=== PATIENT | male | born 1955 | race Caucasian/White ===

== ENCOUNTER → 2016-04-10 | Outpatient (REF) | payer MEDICAID, MEDICARE ==
[~2016-04-10] MED LIST: /GLYB5TA; /TAMS4CA; /TIOT18INH; ACCU5TAB7; ACCUPRIL40 PO; ACET50TAOT PO; ALCOHOL TOP; AMITRIP25 PO; ASP81 PO; ASPI81CH PO; ASPI81TA3; ASTELIN; ASTELIN NASAL; ATENOLOL50 PO; ATOR40TA PO; ATRO0.06; AVOD0.5C; CARV12.5 PO; CELLOPD OU; CLAR5CHW; CLARITD12H PO; CLARITIN10 PO; DIAB5TAB; DITROPAXL5 PO; DOXYCYC100 PO; DULC10SU2 PR; DUONSOL; ENEMENE3 PR; EXPECTORANT; FERR325T PO; FLOM5CAP PO; FLONASESPR NASAL; GLUC1000; GLUC1INJ11 INJ; GLUCOSE; GLUCOVAN PO; HUMA75VL; IBUP400T; IBUP600T; IMODIUM2 PO; INSUHUMDS SC; INSULANT; INVE3TAB PO; INVE3TAB2; INVE6TAB3; LASI80TA; LASIX PO; LEVA31IN; LISI30TA4 PO; LOVAZA PO; METO5TA PO; MILKSUS PO; MOTRIN800 PO; MUCINEX PO; NAPROS500 PO; NAPROSY375 PO; NOVOLOG100 MG/ML; OMACOR; OMACOR PO; OXCA300T PO; PREPCRE PR; PREVACID30 PO; PRIL20CA; PRIL40CA; SENN-23 PO; SERO200T; SING10TA31; SYRINS1CC SUBQ; TENO25TA; TORS20TA2 PO; TOUJ1.2I SC; TRIC145T19; TRICOR145 PO; ULTRTA PO; VENL37.5; VENL75TA2; VENL75TA2 PO; VITA100066 PO; XANA0.25; ZITHROZPAK PO; ZOCO40TA; ZOCOR40 PO; ZYRT10CA PO; [UNRECOGNIZED DRUG - CODE] PO; [UNRECOGNIZED DRUG - OTHER] -; [UNRECOGNIZED DRUG - OTHER] INHALATION; [UNRECOGNIZED DRUG - SUPPLY]
[2016-04-10 12:47] LABS: CALCIUM LEVEL 7.8 MG/DL (8.5-10.1); CREATININE FOR GFR 2.61 MG/DL (0.70-1.30); GLOMERULAR FILTRATION RATE 26.9 (>56); POTASSIUM SERUM 3.9 MEQ/L (3.5-5.1)
== END ==
PROVIDERS: ATTEND Internal Medicine
DX: D64.9 Anemia, unspecified (principal); N18.9 Chronic kidney disease, unspecified

== ENCOUNTER → 2016-04-15 | Outpatient (REF) ==
[2016-04-15 10:16] LABS: MEAN CORPUSCULAR HEMOGLOBIN 28.5 pg (27.0-33.0); MEAN CORPUSCULAR HGB CONC 31.8 g/dl (32.0-36.5); MEAN CORPUSCULAR VOLUME 89.7 fl (80.0-96.0); RED CELL DISTRIBUTION WIDTH 15.9 % (11.5-14.5); WHITE BLOOD COUNT 7.1 K/mm3 (4.0-10.0)
[2016-04-15 10:39] LABS: ANION GAP 5 MEQ/L (8-16); BLOOD UREA NITROGEN 33 MG/DL (7-18); CARBON DIOXIDE LEVEL 39 MEQ/L (21-32); CHLORIDE LEVEL 101 MEQ/L (98-107); CREATININE FOR GFR 2.34 MG/DL (0.70-1.30); GLOMERULAR FILTRATION RATE 30.5 (>56); GLUCOSE, FASTING 125 MG/DL (70-105); POTASSIUM SERUM 3.9 MEQ/L (3.5-5.1); SODIUM LEVEL 145 MEQ/L (136-145); TOTAL PROTEIN 5.9 GM/DL (6.4-8.2)
[2016-04-17 10:43] LABS: ALBUMIN 2.62 GM/DL (3.29-5.55); ALBUMIN % 44.4 % (55.8-66.1); GAMMA GLOBULIN % 18.7 % (11.1-18.8)
== END ==
PROVIDERS: ATTEND Internal Medicine
DX: D64.9 Anemia, unspecified (principal)

== ENCOUNTER → 2016-04-16 | Outpatient (REF) ==
[2016-04-16 12:26] LABS: MEAN CORPUSCULAR HEMOGLOBIN 27.8 pg (27.0-33.0); MEAN CORPUSCULAR HGB CONC 31.1 g/dl (32.0-36.5); MEAN CORPUSCULAR VOLUME 89.5 fl (80.0-96.0); RED CELL DISTRIBUTION WIDTH 16.7 % (11.5-14.5); WHITE BLOOD COUNT 11.8 K/mm3 (4.0-10.0)
== END ==
PROVIDERS: ATTEND Internal Medicine
DX: R50.9 Fever, unspecified (principal)

== ENCOUNTER 2016-04-18 14:33 | Outpatient (CLI) | payer MEDICARE, MEDICAID ==
[2016-04-18 14:00] VITALS: BP 128/60
[~2016-04-18 14:33] MED LIST changes: +ACETAMINOPHEN TAB 650MG DOSE (2X325MG) PO SCH; +diphenhydrAMINE 25 MG CAP PO SCH
[2016-04-18] MEDS ORDERED: TORSEMIDE 20 MG TAB PO ONE (15:00)
== END 2016-04-19 00:15 ==
LOC: M OPCLI4PV 14:33 → M MSPAV 14:36 → M OPCLI4PV 04-19 00:15
PROVIDERS: ATTEND Physician Assistant
DX: D50.0 Iron deficiency anemia secondary to blood loss (chronic) (principal); I10 Essential (primary) hypertension; E78.5 Hyperlipidemia, unspecified; F20.9 Schizophrenia, unspecified; F31.9 Bipolar disorder, unspecified; Z79.4 Long term (current) use of insulin; Z79.82 Long term (current) use of aspirin; I50.9 Heart failure, unspecified; Z79.899 Other long term (current) drug therapy

== ENCOUNTER → 2016-04-18 | Outpatient (REF) ==
[2016-04-18 12:10] LABS: MEAN CORPUSCULAR HEMOGLOBIN 28.7 pg (27.0-33.0); MEAN CORPUSCULAR HGB CONC 31.6 g/dl (32.0-36.5); MEAN CORPUSCULAR VOLUME 90.6 fl (80.0-96.0); RED CELL DISTRIBUTION WIDTH 15.8 % (11.5-14.5); WHITE BLOOD COUNT 7.1 K/mm3 (4.0-10.0)
[2016-04-18 12:28] LABS: CREATININE FOR GFR 3.24 MG/DL (0.70-1.30); POTASSIUM SERUM 4.8 MEQ/L (3.5-5.1)
== END ==
PROVIDERS: ATTEND Internal Medicine
DX: D64.9 Anemia, unspecified (principal)

== ENCOUNTER → 2016-04-19 | Outpatient (REF) ==
[~2016-04-19] MED LIST changes: -ACETAMINOPHEN TAB 650MG DOSE (2X325MG) PO SCH; -diphenhydrAMINE 25 MG CAP PO SCH
[2016-04-19 10:54] LABS: MEAN CORPUSCULAR HEMOGLOBIN 28.6 pg (27.0-33.0); MEAN CORPUSCULAR HGB CONC 32.4 g/dl (32.0-36.5); MEAN CORPUSCULAR VOLUME 88.5 fl (80.0-96.0); WHITE BLOOD COUNT 6.1 K/mm3 (4.0-10.0)
== END ==
PROVIDERS: ATTEND Internal Medicine
DX: D64.9 Anemia, unspecified (principal)

== ENCOUNTER → 2016-04-21 | Outpatient (REF) | payer MEDICAID, MEDICARE ==
--- NOTE | 2016-04-21 16:52 | REP ---
Right upper extremity duplex venous ultrasound: History: Right arm swelling question venous thrombosis. Findings: Exam quality is inhibited to some degree by patient's relative immobility with regard to the right arm. However, the right internal jugular, right subclavian, right axillary, right brachial, right cephalic and right basilic veins are seen and are anechoic and compressible. Color flow is homogeneous. There is no evidence of venous thrombosis. Impression: No evidence of right upper extremity venous thrombosis. Signed by Scott Huynh MD 04/21/2016 05:43 P
== END ==
LOC: M RAD 12:00 → EDSTATUS 15:30 → M RAD 15:58
PROVIDERS: ATTEND Physician Assistant
DX: M79.601 Pain in right arm (principal); I50.9 Heart failure, unspecified; D64.9 Anemia, unspecified

== ENCOUNTER → 2016-04-21 | Outpatient (REF) | payer MEDICARE, MEDICAID ==
[2016-04-21 14:11] LABS: CALCIUM LEVEL 8.1 MG/DL (8.5-10.1); CREATININE FOR GFR 2.81 MG/DL (0.70-1.30); GLOMERULAR FILTRATION RATE 24.7 (>56); PERCENT SATURATION 12.8 % (19.7-37.4); POTASSIUM SERUM 4.5 MEQ/L (3.5-5.1)
[2016-04-21 14:17] LABS: MEAN CORPUSCULAR HEMOGLOBIN 27.9 pg (27.0-33.0); RED CELL DISTRIBUTION WIDTH 16.5 % (11.5-14.5)
== END ==
PROVIDERS: ATTEND Internal Medicine
DX: I50.9 Heart failure, unspecified (principal); D64.9 Anemia, unspecified

== ENCOUNTER → 2016-04-22 | Outpatient (REF) | payer MEDICARE, MEDICAID ==
--- NOTE | 2016-04-22 16:11 | REP ---
Limited internal and external rotation views of the right shoulder, performed portably: Indication: Decreased range of motion/increased pain in area of acromioclavicular joint. Findings: Moderate hypertrophic and osteoarthritic changes are noted at the acromioclavicular joint. There is no fracture or dislocation within the right shoulder. There is no visible acromioclavicular joint separation. The visualized portions of the scapula are without fracture. Small amount of spurring is noted within the humeral head and greater tuberosity. Impression: 1. Mild osteoarthritic changes within the humeral head at glenohumeral joint. 2. Moderate hypertrophic and osteoarthritic changes are present at acromioclavicular joint, which can be seen with impingement. MTDD
== END ==
PROVIDERS: ATTEND Internal Medicine
DX: M19.90 Unspecified osteoarthritis, unspecified site (principal)

== ENCOUNTER → 2016-04-23 | Outpatient (REF) ==
[2016-04-23 12:13] LABS: MEAN CORPUSCULAR HEMOGLOBIN 27.7 pg (27.0-33.0); MEAN CORPUSCULAR HGB CONC 30.9 g/dl (32.0-36.5); MEAN CORPUSCULAR VOLUME 89.5 fl (80.0-96.0); RED CELL DISTRIBUTION WIDTH 16.5 % (11.5-14.5); WHITE BLOOD COUNT 7.4 K/mm3 (4.0-10.0)
== END ==
PROVIDERS: ATTEND Internal Medicine
DX: D64.9 Anemia, unspecified (principal)

== ENCOUNTER → 2016-04-28 | Outpatient (REF) | payer MEDICARE, MEDICAID ==
[2016-04-28 14:24] LABS: MEAN CORPUSCULAR HEMOGLOBIN 27.8 pg (27.0-33.0); MEAN CORPUSCULAR HGB CONC 30.7 g/dl (32.0-36.5); MEAN CORPUSCULAR VOLUME 90.7 fl (80.0-96.0); RED CELL DISTRIBUTION WIDTH 16.4 % (11.5-14.5); WHITE BLOOD COUNT 7.8 K/mm3 (4.0-10.0)
[2016-04-28 14:36] LABS: CALCIUM LEVEL 8.6 MG/DL (8.5-10.1); CREATININE FOR GFR 2.41 MG/DL (0.70-1.30); GLOMERULAR FILTRATION RATE 29.5 (>56); POTASSIUM SERUM 4.3 MEQ/L (3.5-5.1)
== END ==
PROVIDERS: ATTEND Internal Medicine
DX: D64.9 Anemia, unspecified (principal)

== ENCOUNTER → 2016-05-01 | Outpatient (REF) | payer MEDICAID, MEDICARE ==
[2016-05-01 14:24] LABS: MEAN CORPUSCULAR HEMOGLOBIN 28.1 pg (27.0-33.0); MEAN CORPUSCULAR HGB CONC 30.8 g/dl (32.0-36.5); MEAN CORPUSCULAR VOLUME 91.2 fl (80.0-96.0); RED CELL DISTRIBUTION WIDTH 15.2 % (11.5-14.5); WHITE BLOOD COUNT 5.6 K/mm3 (4.0-10.0)
[2016-05-02 08:57] LABS: CALCIUM OXALATE CRYSTALS SMALL
== END ==
PROVIDERS: ATTEND Internal Medicine
DX: D64.9 Anemia, unspecified (principal); Z79.899 Other long term (current) drug therapy; I50.9 Heart failure, unspecified

== ENCOUNTER → 2016-05-05 | Outpatient (REF) | payer MEDICAID, MEDICARE ==
[2016-05-05 11:57] LABS: MEAN CORPUSCULAR HEMOGLOBIN 27.8 pg (27.0-33.0); MEAN CORPUSCULAR HGB CONC 31.6 g/dl (32.0-36.5); MEAN CORPUSCULAR VOLUME 87.9 fl (80.0-96.0); RED CELL DISTRIBUTION WIDTH 16.6 % (11.5-14.5); WHITE BLOOD COUNT 4.8 K/mm3 (4.0-10.0)
[2016-05-05 12:35] LABS: CALCIUM LEVEL 8.3 MG/DL (8.5-10.1); CREATININE FOR GFR 2.28 MG/DL (0.70-1.30); GLOMERULAR FILTRATION RATE 31.5 (>56)
== END ==
PROVIDERS: ATTEND Internal Medicine
DX: D64.9 Anemia, unspecified (principal); I50.9 Heart failure, unspecified

== ENCOUNTER → 2016-05-08 | Outpatient (REF) ==
[2016-05-08 14:52] LABS: MEAN CORPUSCULAR HEMOGLOBIN 28.4 pg (27.0-33.0); MEAN CORPUSCULAR HGB CONC 31.9 g/dl (32.0-36.5); MEAN CORPUSCULAR VOLUME 89.1 fl (80.0-96.0); RED CELL DISTRIBUTION WIDTH 15.9 % (11.5-14.5); WHITE BLOOD COUNT 5.4 K/mm3 (4.0-10.0)
== END ==
PROVIDERS: ATTEND Internal Medicine
DX: D64.9 Anemia, unspecified (principal)

== ENCOUNTER → 2016-05-13 | Outpatient (REF) | payer MEDICARE, MEDICAID ==
[2016-05-13 12:41] LABS: MEAN CORPUSCULAR HGB CONC 31.3 g/dl (32.0-36.5); MEAN CORPUSCULAR VOLUME 89.3 fl (80.0-96.0); RED CELL DISTRIBUTION WIDTH 15.7 % (11.5-14.5); WHITE BLOOD COUNT 5.6 K/mm3 (4.0-10.0)
[2016-05-13 12:48] LABS: CALCIUM LEVEL 8.3 MG/DL (8.5-10.1); CREATININE FOR GFR 2.42 MG/DL (0.70-1.30); GLOMERULAR FILTRATION RATE 29.4 (>56); POTASSIUM SERUM 3.8 MEQ/L (3.5-5.1)
== END ==
PROVIDERS: ATTEND Internal Medicine
DX: D64.9 Anemia, unspecified (principal); R13.12 Dysphagia, oropharyngeal phase

== ENCOUNTER → 2016-05-15 | Outpatient (REF) | payer MEDICAID, MEDICARE ==
[2016-05-15 12:37] LABS: MEAN CORPUSCULAR HEMOGLOBIN 28.1 pg (27.0-33.0); MEAN CORPUSCULAR HGB CONC 31.4 g/dl (32.0-36.5); MEAN CORPUSCULAR VOLUME 89.4 fl (80.0-96.0); RED CELL DISTRIBUTION WIDTH 15.8 % (11.5-14.5); WHITE BLOOD COUNT 5.9 K/mm3 (4.0-10.0)
== END ==
PROVIDERS: ATTEND Internal Medicine
DX: D64.9 Anemia, unspecified (principal)

== ENCOUNTER → 2016-05-19 | Outpatient (REF) | payer MEDICARE, MEDICAID ==
[2016-05-19 12:50] LABS: MEAN CORPUSCULAR HEMOGLOBIN 28.2 pg (27.0-33.0); MEAN CORPUSCULAR HGB CONC 31.3 g/dl (32.0-36.5); MEAN CORPUSCULAR VOLUME 90.2 fl (80.0-96.0); RED CELL DISTRIBUTION WIDTH 16.2 % (11.5-14.5); WHITE BLOOD COUNT 6.6 K/mm3 (4.0-10.0)
[2016-05-19 13:17] LABS: CALCIUM LEVEL 8.3 MG/DL (8.5-10.1); CREATININE FOR GFR 2.43 MG/DL (0.70-1.30); GLOMERULAR FILTRATION RATE 29.2 (>56); POTASSIUM SERUM 4.1 MEQ/L (3.5-5.1)
== END ==
PROVIDERS: ATTEND Internal Medicine
DX: D64.9 Anemia, unspecified (principal); I50.9 Heart failure, unspecified

== ENCOUNTER → 2016-05-22 | Outpatient (REF) | payer MEDICARE, MEDICAID ==
[2016-05-22 10:33] LABS: MEAN CORPUSCULAR HEMOGLOBIN 28.7 pg (27.0-33.0); MEAN CORPUSCULAR HGB CONC 31.6 g/dl (32.0-36.5); MEAN CORPUSCULAR VOLUME 90.8 fl (80.0-96.0); RED CELL DISTRIBUTION WIDTH 16.5 % (11.5-14.5); WHITE BLOOD COUNT 6.1 K/mm3 (4.0-10.0)
== END ==
PROVIDERS: ATTEND Internal Medicine
DX: D64.9 Anemia, unspecified (principal)

== ENCOUNTER → 2016-05-27 | Outpatient (REF) | payer MEDICARE, MEDICAID ==
[2016-05-27 10:40] LABS: MEAN CORPUSCULAR HEMOGLOBIN 28.2 pg (27.0-33.0); MEAN CORPUSCULAR HGB CONC 31.5 g/dl (32.0-36.5); MEAN CORPUSCULAR VOLUME 89.6 fl (80.0-96.0); RED CELL DISTRIBUTION WIDTH 16.7 % (11.5-14.5); WHITE BLOOD COUNT 5.4 K/mm3 (4.0-10.0)
[2016-05-27 10:59] LABS: CALCIUM LEVEL 8.9 MG/DL (8.5-10.1); CREATININE FOR GFR 2.25 MG/DL (0.70-1.30); GLOMERULAR FILTRATION RATE 31.9 (>56)
== END ==
PROVIDERS: ATTEND Internal Medicine
DX: I50.9 Heart failure, unspecified (principal); D64.9 Anemia, unspecified

== ENCOUNTER → 2016-06-02 | Outpatient (REF) | payer MEDICARE, MEDICAID ==
[2016-06-02 12:53] LABS: MEAN CORPUSCULAR HEMOGLOBIN 28.5 pg (27.0-33.0); MEAN CORPUSCULAR HGB CONC 31.6 g/dl (32.0-36.5); MEAN CORPUSCULAR VOLUME 90.1 fl (80.0-96.0); RED CELL DISTRIBUTION WIDTH 16.6 % (11.5-14.5); WHITE BLOOD COUNT 5.2 K/mm3 (4.0-10.0)
[2016-06-02 13:33] LABS: CALCIUM LEVEL 8.2 MG/DL (8.5-10.1); CREATININE FOR GFR 2.17 MG/DL (0.70-1.30); GLOMERULAR FILTRATION RATE 33.3 (>56)
== END ==
PROVIDERS: ATTEND Internal Medicine
DX: I50.9 Heart failure, unspecified (principal)

== ENCOUNTER → 2016-06-06 | Outpatient (REF) ==
--- NOTE | 2016-06-06 14:03 | REP ---
CHEST PORTABLE: Two AP portable views of the chest are performed. Comparison is made with multiple prior exams most recently 03/19/2016. The heart is enlarged and there is vascular congestion. There appears to be mild diffuse interstitial edema. As well. No consolidating infiltrate is seen. The mediastinal silhouette is unchanged. IMPRESSION: Findings compatible with mild congestive heart failure and interstitial pulmonary edema. Signed by Inder Hollis MD 06/06/2016 08:33 P
[2016-06-06 14:20] LABS: MEAN CORPUSCULAR HEMOGLOBIN 29.2 pg (27.0-33.0); MEAN CORPUSCULAR HGB CONC 32.6 g/dl (32.0-36.5); MEAN CORPUSCULAR VOLUME 89.6 fl (80.0-96.0); RED CELL DISTRIBUTION WIDTH 16.6 % (11.5-14.5); WHITE BLOOD COUNT 5.9 K/mm3 (4.0-10.0)
[2016-06-06 14:28] LABS: CALCIUM LEVEL 8.6 MG/DL (8.5-10.1); CREATININE FOR GFR 2.28 MG/DL (0.70-1.30); GLOMERULAR FILTRATION RATE 31.5 (>56); POTASSIUM SERUM 4.2 MEQ/L (3.5-5.1)
== END ==
PROVIDERS: ATTEND Internal Medicine
DX: R05 Cough (principal); I10 Essential (primary) hypertension

== ENCOUNTER → 2016-06-09 | Outpatient (REF) | payer MEDICAID, MEDICARE ==
[2016-06-09 10:07] LABS: MEAN CORPUSCULAR HEMOGLOBIN 29.2 pg (27.0-33.0); MEAN CORPUSCULAR HGB CONC 31.8 g/dl (32.0-36.5); MEAN CORPUSCULAR VOLUME 91.7 fl (80.0-96.0); RED CELL DISTRIBUTION WIDTH 16.3 % (11.5-14.5); WHITE BLOOD COUNT 5.5 K/mm3 (4.0-10.0)
[2016-06-09 10:36] LABS: CALCIUM LEVEL 8.7 MG/DL (8.5-10.1); CREATININE FOR GFR 2.37 MG/DL (0.70-1.30); GLOMERULAR FILTRATION RATE 30.1 (>56); POTASSIUM SERUM 4.2 MEQ/L (3.5-5.1)
== END ==
PROVIDERS: ATTEND Internal Medicine
DX: I50.9 Heart failure, unspecified (principal)

== ENCOUNTER → 2016-06-11 | Outpatient (REF) | payer MEDICARE, MEDICAID ==
--- NOTE | 2016-06-11 13:14 | REP ---
PORTABLE CHEST: AP portable view of the chest is performed and compared to a prior study of 06/06/2016. Once again there is cardiomegaly with mild vascular congestion. Mild diffuse increased interstitial markings are unchanged. No new consolidating infiltrate is seen. The mediastinal silhouette is unchanged. IMPRESSION: Stable exam. Signed by Inder Hollis MD 06/12/2016 04:36 P
== END ==
PROVIDERS: ATTEND Internal Medicine
DX: I50.9 Heart failure, unspecified (principal)

== ENCOUNTER → 2016-06-16 | Outpatient (REF) ==
[2016-06-16 11:23] LABS: MEAN CORPUSCULAR HEMOGLOBIN 29.4 pg (27.0-33.0); MEAN CORPUSCULAR HGB CONC 32.5 g/dl (32.0-36.5); MEAN CORPUSCULAR VOLUME 90.4 fl (80.0-96.0); RED CELL DISTRIBUTION WIDTH 16.1 % (11.5-14.5); WHITE BLOOD COUNT 6.5 K/mm3 (4.0-10.0)
[2016-06-16 11:46] LABS: CALCIUM LEVEL 8.7 MG/DL (8.5-10.1); CREATININE FOR GFR 2.24 MG/DL (0.70-1.30); GLOMERULAR FILTRATION RATE 32.1 (>56); POTASSIUM SERUM 4.3 MEQ/L (3.5-5.1)
== END ==
PROVIDERS: ATTEND Internal Medicine
DX: I50.9 Heart failure, unspecified (principal)

== ENCOUNTER → 2016-06-23 | Outpatient (REF) | payer MEDICARE, MEDICAID ==
[2016-06-23 13:43] LABS: MEAN CORPUSCULAR HEMOGLOBIN 29.1 pg (27.0-33.0); MEAN CORPUSCULAR HGB CONC 31.8 g/dl (32.0-36.5); MEAN CORPUSCULAR VOLUME 91.6 fl (80.0-96.0); RED CELL DISTRIBUTION WIDTH 15.7 % (11.5-14.5); WHITE BLOOD COUNT 6.3 K/mm3 (4.0-10.0)
[2016-06-23 14:02] LABS: CALCIUM LEVEL 8.4 MG/DL (8.5-10.1); CREATININE FOR GFR 2.61 MG/DL (0.70-1.30); GLOMERULAR FILTRATION RATE 26.9 (>56); POTASSIUM SERUM 4.2 MEQ/L (3.5-5.1)
== END ==
PROVIDERS: ATTEND Internal Medicine
DX: I50.9 Heart failure, unspecified (principal)

== ENCOUNTER → 2016-06-30 | Outpatient (REF) | payer MEDICARE, MEDICAID ==
[2016-06-30 10:31] LABS: CALCIUM LEVEL 8.9 MG/DL (8.5-10.1); CREATININE FOR GFR 2.42 MG/DL (0.70-1.30); GLOMERULAR FILTRATION RATE 29.4 (>56); MEAN CORPUSCULAR HEMOGLOBIN 28.4 pg (27.0-33.0); MEAN CORPUSCULAR HGB CONC 31.4 g/dl (32.0-36.5); MEAN CORPUSCULAR VOLUME 90.7 fl (80.0-96.0); POTASSIUM SERUM 4.5 MEQ/L (3.5-5.1); WHITE BLOOD COUNT 6.3 K/mm3 (4.0-10.0)
== END ==
PROVIDERS: ATTEND Internal Medicine
DX: D64.9 Anemia, unspecified (principal); I50.9 Heart failure, unspecified

== ENCOUNTER → 2016-07-03 | Outpatient (REF) | payer MEDICARE, MEDICAID | PROVIDERS: ATTEND Internal Medicine | DX: E21.3 Hyperparathyroidism, unspecified (principal) ==

== ENCOUNTER → 2016-07-04 | Outpatient (REF) | payer MEDICARE, MEDICAID | PROVIDERS: ATTEND Internal Medicine | DX: E50.9 Vitamin A deficiency, unspecified (principal) ==

== ENCOUNTER → 2016-07-07 | Outpatient (REF) | payer MEDICARE, MEDICAID ==
[2016-07-07 13:49] LABS: MEAN CORPUSCULAR HEMOGLOBIN 28.6 pg (27.0-33.0); MEAN CORPUSCULAR HGB CONC 30.5 g/dl (32.0-36.5); MEAN CORPUSCULAR VOLUME 93.7 fl (80.0-96.0); RED CELL DISTRIBUTION WIDTH 15.6 % (11.5-14.5); WHITE BLOOD COUNT 5.9 K/mm3 (4.0-10.0)
[2016-07-07 14:34] LABS: CALCIUM LEVEL 8.5 MG/DL (8.5-10.1); CREATININE FOR GFR 3.27 MG/DL (0.70-1.30); GLOMERULAR FILTRATION RATE 20.7 (>56); POTASSIUM SERUM 4.1 MEQ/L (3.5-5.1)
== END ==
PROVIDERS: ATTEND Internal Medicine
DX: I50.9 Heart failure, unspecified (principal); D64.9 Anemia, unspecified

== ENCOUNTER → 2016-07-10 | Outpatient (REF) | payer MEDICARE, MEDICAID ==
[2016-07-10 12:36] LABS: CALCIUM LEVEL 9.2 MG/DL (8.5-10.1); CREATININE FOR GFR 2.8 MG/DL (0.70-1.30); GLOMERULAR FILTRATION RATE 24.8 (>56); POTASSIUM SERUM 4.3 MEQ/L (3.5-5.1)
[2016-07-10 12:37] LABS: MEAN CORPUSCULAR HEMOGLOBIN 28.4 pg (27.0-33.0); MEAN CORPUSCULAR HGB CONC 30.6 g/dl (32.0-36.5); MEAN CORPUSCULAR VOLUME 92.9 fl (80.0-96.0); RED CELL DISTRIBUTION WIDTH 15.3 % (11.5-14.5); WHITE BLOOD COUNT 5.8 K/mm3 (4.0-10.0)
== END ==
PROVIDERS: ATTEND Internal Medicine
DX: D64.9 Anemia, unspecified (principal)

== ENCOUNTER → 2016-07-14 | Outpatient (REF) | payer MEDICARE, MEDICAID | PROVIDERS: ATTEND Internal Medicine | DX: N17.9 Acute kidney failure, unspecified (principal) ==

== ENCOUNTER → 2016-07-22 | Outpatient (REF) | payer MEDICARE, MEDICAID ==
[2016-07-22 11:10] LABS: MEAN CORPUSCULAR HEMOGLOBIN 28.1 pg (27.0-33.0); MEAN CORPUSCULAR HGB CONC 31.4 g/dl (32.0-36.5); MEAN CORPUSCULAR VOLUME 89.5 fl (80.0-96.0); RED CELL DISTRIBUTION WIDTH 15.6 % (11.5-14.5); WHITE BLOOD COUNT 7.8 K/mm3 (4.0-10.0)
[2016-07-22 11:24] LABS: CALCIUM LEVEL 8.5 MG/DL (8.5-10.1); CREATININE FOR GFR 2.53 MG/DL (0.70-1.30); GLOMERULAR FILTRATION RATE 27.9 (>56); POTASSIUM SERUM 4.6 MEQ/L (3.5-5.1)
== END ==
PROVIDERS: ATTEND Internal Medicine
DX: D64.9 Anemia, unspecified (principal); I50.9 Heart failure, unspecified

== ENCOUNTER → 2016-07-23 | Outpatient (REF) | payer MEDICARE, MEDICAID | PROVIDERS: ATTEND Internal Medicine | DX: N39.0 Urinary tract infection, site not specified (principal) ==

== ENCOUNTER → 2016-07-24 | Outpatient (REF) | payer MEDICARE, MEDICAID ==
--- NOTE | 2016-07-24 16:50 | REP ---
PORTABLE CHEST, ONE VIEW: HISTORY: Shortness of breath. COMPARISON: 06/11/2016 A minimal increase in interstitial markings is present in the lungs unchanged compared to the previous study. The cardiac silhouette is enlarged. The pulmonary vasculature is prominent. IMPRESSION: 1. There is a minimal increase in interstitial markings in the lungs unchanged compared to the previous study. 2. Cardiomegaly. Signed by Pradeep Jacques MD 07/24/2016 04:52 P
== END ==
PROVIDERS: ATTEND Internal Medicine
DX: R05 Cough (principal)

== ENCOUNTER → 2016-07-28 | Outpatient (REF) | payer MEDICARE, MEDICAID ==
[2016-07-28 11:40] LABS: MEAN CORPUSCULAR HEMOGLOBIN 28.4 pg (27.0-33.0); MEAN CORPUSCULAR HGB CONC 31.9 g/dl (32.0-36.5); MEAN CORPUSCULAR VOLUME 89.2 fl (80.0-96.0); RED CELL DISTRIBUTION WIDTH 15.5 % (11.5-14.5); WHITE BLOOD COUNT 5.4 K/mm3 (4.0-10.0)
[2016-07-28 12:10] LABS: CALCIUM LEVEL 7.6 MG/DL (8.5-10.1); CREATININE FOR GFR 4.87 MG/DL (0.70-1.30); GLOMERULAR FILTRATION RATE 13.1 (>56); POTASSIUM SERUM 4.4 MEQ/L (3.5-5.1)
== END ==
PROVIDERS: ATTEND Internal Medicine
DX: D64.9 Anemia, unspecified (principal); I50.9 Heart failure, unspecified

== ENCOUNTER → 2016-08-04 | Outpatient (REF) | payer MEDICARE, MEDICAID ==
[2016-08-04 14:02] LABS: MEAN CORPUSCULAR HEMOGLOBIN 28.1 pg (27.0-33.0); MEAN CORPUSCULAR HGB CONC 30.7 g/dl (32.0-36.5); MEAN CORPUSCULAR VOLUME 91.5 fl (80.0-96.0); RED CELL DISTRIBUTION WIDTH 16.3 % (11.5-14.5)
[2016-08-04 14:23] LABS: CALCIUM LEVEL 8.2 MG/DL (8.5-10.1); CREATININE FOR GFR 2.63 MG/DL (0.70-1.30); GLOMERULAR FILTRATION RATE 26.7 (>56); POTASSIUM SERUM 4.6 MEQ/L (3.5-5.1)
== END ==
PROVIDERS: ATTEND Internal Medicine
DX: I50.9 Heart failure, unspecified (principal)

== ENCOUNTER → 2016-08-07 | Outpatient (REF) | payer MEDICARE, MEDICAID ==
[2016-08-07 09:55] LABS: MEAN CORPUSCULAR VOLUME 90.3 fl (80.0-96.0); RED CELL DISTRIBUTION WIDTH 16.3 % (11.5-14.5)
[2016-08-07 10:23] LABS: CALCIUM LEVEL 7.7 MG/DL (8.5-10.1); CREATININE FOR GFR 2.78 MG/DL (0.70-1.30); POTASSIUM SERUM 4.6 MEQ/L (3.5-5.1)
== END ==
PROVIDERS: ATTEND Internal Medicine
DX: I50.9 Heart failure, unspecified (principal)

== ENCOUNTER → 2016-08-11 | Outpatient (REF) | payer MEDICARE, MEDICAID ==
[2016-08-11 10:42] LABS: MEAN CORPUSCULAR HEMOGLOBIN 28.8 pg (27.0-33.0); MEAN CORPUSCULAR VOLUME 90.1 fl (80.0-96.0); WHITE BLOOD COUNT 5.4 K/mm3 (4.0-10.0)
[2016-08-11 11:09] LABS: CALCIUM LEVEL 8.4 MG/DL (8.5-10.1); CREATININE FOR GFR 2.6 MG/DL (0.70-1.30); POTASSIUM SERUM 4.5 MEQ/L (3.5-5.1)
== END ==
PROVIDERS: ATTEND Internal Medicine
DX: I50.9 Heart failure, unspecified (principal)

== ENCOUNTER 2016-08-12 09:00 | Outpatient (CLI) | payer MEDICARE, MEDICAID ==
[~2016-08-12] VITALS: Ht 160 cm; Wt 166.5 kg
[~2016-08-12 09:00] MED LIST changes: +diphenhydrAMINE 25 MG CAP PO SCH
[2016-08-12 09:25] VITALS: BP 150/99
[2016-08-12] MEDS ORDERED: ACETAMINOPHEN 325 MG TAB PO ONE (09:30)
[2016-08-12] MEDS ORDERED: FUROSEMIDE 40 MG/4 ML VIAL (J1940) IV ONE (10:30)
[2016-08-12] MEDS: HumaLOG INSULIN (NovoLOG) PER UNIT SC SCH ×2 (11:39→16:53)
[2016-08-12 14:00] VITALS: BP 148/79
== END 2016-08-12 18:27 ==
LOC: M OPCLI4PV 09:00 → M MSPAV 09:01 → M OPCLI4PV 18:27
PROVIDERS: ATTEND Physician Assistant
DX: D64.9 Anemia, unspecified (principal); Z79.82 Long term (current) use of aspirin; Z79.4 Long term (current) use of insulin; Z79.899 Other long term (current) drug therapy
CPT/HCPCS: 36430; J1940; P9016

== ENCOUNTER → 2016-08-14 | Outpatient (REF) | payer MEDICARE, MEDICAID ==
[~2016-08-14] MED LIST changes: -diphenhydrAMINE 25 MG CAP PO SCH
[2016-08-14 19:06] LABS: MEAN CORPUSCULAR HEMOGLOBIN 29.5 pg (27.0-33.0); MEAN CORPUSCULAR HGB CONC 32.5 g/dl (32.0-36.5); RED CELL DISTRIBUTION WIDTH 15.6 % (11.5-14.5); WHITE BLOOD COUNT 6.9 K/mm3 (4.0-10.0)
== END ==
PROVIDERS: ATTEND Internal Medicine
DX: D64.9 Anemia, unspecified (principal)

== ENCOUNTER → 2016-08-18 | Outpatient (REF) | payer MEDICARE, MEDICAID ==
[2016-08-18 10:20] LABS: MEAN CORPUSCULAR HEMOGLOBIN 29.1 pg (27.0-33.0); MEAN CORPUSCULAR HGB CONC 32.4 g/dl (32.0-36.5); MEAN CORPUSCULAR VOLUME 89.8 fl (80.0-96.0); RED CELL DISTRIBUTION WIDTH 15.4 % (11.5-14.5); WHITE BLOOD COUNT 5.6 K/mm3 (4.0-10.0)
[2016-08-18 10:28] LABS: CALCIUM LEVEL 8.2 MG/DL (8.5-10.1); CREATININE FOR GFR 2.73 MG/DL (0.70-1.30); GLOMERULAR FILTRATION RATE 25.6 (>56); POTASSIUM SERUM 4.4 MEQ/L (3.5-5.1)
== END ==
PROVIDERS: ATTEND Internal Medicine
DX: D64.9 Anemia, unspecified (principal)

== ENCOUNTER → 2016-08-25 | Outpatient (REF) | payer MEDICARE, MEDICAID ==
[2016-08-25 14:21] LABS: CALCIUM LEVEL 7.6 MG/DL (8.5-10.1); CREATININE FOR GFR 2.83 MG/DL (0.70-1.30); GLOMERULAR FILTRATION RATE 24.5 (>56)
[2016-08-25 14:26] LABS: MEAN CORPUSCULAR HEMOGLOBIN 29.6 pg (27.0-33.0); MEAN CORPUSCULAR HGB CONC 33.8 g/dl (32.0-36.5); MEAN CORPUSCULAR VOLUME 87.5 fl (80.0-96.0); RED CELL DISTRIBUTION WIDTH 15.4 % (11.5-14.5); WHITE BLOOD COUNT 6.1 K/mm3 (4.0-10.0)
== END ==
PROVIDERS: ATTEND Internal Medicine
DX: D64.9 Anemia, unspecified (principal)

== ENCOUNTER → 2016-08-29 | Outpatient (REF) | payer MEDICARE, MEDICAID ==
[2016-08-29 10:34] LABS: CALCIUM LEVEL 8.3 MG/DL (8.5-10.1); CREATININE FOR GFR 2.72 MG/DL (0.70-1.30); GLOMERULAR FILTRATION RATE 25.7 (>56); POTASSIUM SERUM 4.4 MEQ/L (3.5-5.1)
== END ==
PROVIDERS: ATTEND Internal Medicine
DX: N18.9 Chronic kidney disease, unspecified (principal)

== ENCOUNTER → 2016-09-02 | Outpatient (REF) | payer MEDICARE, MEDICAID ==
[2016-09-02 10:57] LABS: MEAN CORPUSCULAR HEMOGLOBIN 28.9 pg (27.0-33.0); MEAN CORPUSCULAR HGB CONC 32.3 g/dl (32.0-36.5); MEAN CORPUSCULAR VOLUME 89.4 fl (80.0-96.0); RED CELL DISTRIBUTION WIDTH 15.4 % (11.5-14.5); WHITE BLOOD COUNT 7.4 K/mm3 (4.0-10.0)
[2016-09-02 11:11] LABS: CALCIUM LEVEL 8.3 MG/DL (8.5-10.1); CREATININE FOR GFR 2.9 MG/DL (0.70-1.30); GLOMERULAR FILTRATION RATE 23.8 (>56); POTASSIUM SERUM 4.6 MEQ/L (3.5-5.1)
== END ==
PROVIDERS: ATTEND Internal Medicine
DX: D64.9 Anemia, unspecified (principal); E21.3 Hyperparathyroidism, unspecified

== ENCOUNTER → 2016-09-08 | Outpatient (REF) | payer MEDICARE, MEDICAID ==
[2016-09-08 13:38] LABS: MEAN CORPUSCULAR HEMOGLOBIN 29.2 pg (27.0-33.0); MEAN CORPUSCULAR HGB CONC 32.5 g/dl (32.0-36.5); MEAN CORPUSCULAR VOLUME 89.8 fl (80.0-96.0); WHITE BLOOD COUNT 7.9 K/mm3 (4.0-10.0)
[2016-09-08 14:03] LABS: CALCIUM LEVEL 7.9 MG/DL (8.5-10.1); CREATININE FOR GFR 3.13 MG/DL (0.70-1.30); GLOMERULAR FILTRATION RATE 21.8 (>56); POTASSIUM SERUM 4.1 MEQ/L (3.5-5.1)
== END ==
PROVIDERS: ATTEND Internal Medicine
DX: I50.9 Heart failure, unspecified (principal); D64.9 Anemia, unspecified

== ENCOUNTER → 2016-09-11 | Outpatient (REF) | payer MEDICARE, MEDICAID ==
[2016-09-11 15:15] LABS: CALCIUM LEVEL 7.9 MG/DL (8.5-10.1); CREATININE FOR GFR 3.06 MG/DL (0.70-1.30); GLOMERULAR FILTRATION RATE 22.4 (>56); POTASSIUM SERUM 4.6 MEQ/L (3.5-5.1)
== END ==
PROVIDERS: ATTEND Internal Medicine
DX: N18.9 Chronic kidney disease, unspecified (principal)

== ENCOUNTER → 2016-09-15 | Outpatient (REF) | payer MEDICARE, MEDICAID ==
[2016-09-15 14:28] LABS: MEAN CORPUSCULAR HEMOGLOBIN 29.7 pg (27.0-33.0); MEAN CORPUSCULAR VOLUME 87.3 fl (80.0-96.0); RED CELL DISTRIBUTION WIDTH 15.1 % (11.5-14.5)
[2016-09-15 16:14] LABS: CALCIUM LEVEL 8.4 MG/DL (8.5-10.1); CREATININE FOR GFR 3.25 MG/DL (0.70-1.30); GLOMERULAR FILTRATION RATE 20.9 (>56)
== END ==
PROVIDERS: ATTEND Internal Medicine
DX: I50.9 Heart failure, unspecified (principal); D64.9 Anemia, unspecified

== ENCOUNTER → 2016-09-22 | Outpatient (REF) | payer MEDICARE, MEDICAID ==
[2016-09-22 14:28] LABS: MEAN CORPUSCULAR HEMOGLOBIN 28.7 pg (27.0-33.0); MEAN CORPUSCULAR HGB CONC 32.2 g/dl (32.0-36.5); MEAN CORPUSCULAR VOLUME 89.1 fl (80.0-96.0); RED CELL DISTRIBUTION WIDTH 15.3 % (11.5-14.5); WHITE BLOOD COUNT 7.4 K/mm3 (4.0-10.0)
[2016-09-22 14:50] LABS: CALCIUM LEVEL 8.1 MG/DL (8.5-10.1); CREATININE FOR GFR 3.17 MG/DL (0.70-1.30); GLOMERULAR FILTRATION RATE 21.5 (>56); POTASSIUM SERUM 4.3 MEQ/L (3.5-5.1)
== END ==
PROVIDERS: ATTEND Internal Medicine
DX: D64.9 Anemia, unspecified (principal); R73.01 Impaired fasting glucose

== ENCOUNTER → 2016-09-24 | Outpatient (REF) | payer MEDICARE, MEDICAID ==
[2016-09-24 10:38] LABS: CALCIUM LEVEL 8.5 MG/DL (8.5-10.1); CREATININE FOR GFR 3.1 MG/DL (0.70-1.30); GLOMERULAR FILTRATION RATE 22.1 (>56); POTASSIUM SERUM 4.1 MEQ/L (3.5-5.1)
== END ==
PROVIDERS: ATTEND Internal Medicine
DX: N18.9 Chronic kidney disease, unspecified (principal)

== ENCOUNTER → 2016-09-29 | Outpatient (REF) | payer MEDICARE, MEDICAID ==
[~2016-09-29] MED LIST changes: -ATOR40TA PO; +ATOR40TA75 PO; +ENEMENE16 PR; -ENEMENE3 PR; +FERR1TAB8 PO; -FERR325T PO; -INVE3TAB PO; +INVE3TAB2 PO
[2016-09-29 13:30] LABS: MEAN CORPUSCULAR HEMOGLOBIN 29.6 pg (27.0-33.0); MEAN CORPUSCULAR HGB CONC 33.2 g/dl (32.0-36.5); MEAN CORPUSCULAR VOLUME 89.1 fl (80.0-96.0); RED CELL DISTRIBUTION WIDTH 15.6 % (11.5-14.5); WHITE BLOOD COUNT 7.7 K/mm3 (4.0-10.0)
[2016-09-29 14:22] LABS: ANION GAP 8 MEQ/L (8-16); BLOOD UREA NITROGEN 58 MG/DL (7-18); CALCIUM LEVEL 8.6 MG/DL (8.5-10.1); CARBON DIOXIDE LEVEL 30 MEQ/L (21-32); CHLORIDE LEVEL 102 MEQ/L (98-107); CREATININE FOR GFR 2.77 MG/DL (0.70-1.30); GLOMERULAR FILTRATION RATE 25.1 (>56); GLUCOSE, FASTING 107 MG/DL (70-105); SODIUM LEVEL 140 MEQ/L (136-145)
[2016-10-01 00:07] LABS: ERYTHROCYTE PROTOPORPHYRIN 117 ug/dL (0-34); ZINC PROTOPORPHYRIN 129 ug/dL (0-38)
[2016-10-01 13:11] LABS: ALBUMIN % 44.6 % (55.8-66.1)
[2016-10-01 13:12] LABS: ALBUMIN 3.12 GM/DL (3.29-5.55); GAMMA GLOBULIN % 19.8 % (11.1-18.8)
== END ==
PROVIDERS: ATTEND Internal Medicine
DX: D64.9 Anemia, unspecified (principal); N18.9 Chronic kidney disease, unspecified

== ENCOUNTER → 2016-10-06 | Outpatient (REF) | payer MEDICARE, MEDICAID ==
[2016-10-06 12:02] LABS: MEAN CORPUSCULAR HEMOGLOBIN 28.1 pg (27.0-33.0); MEAN CORPUSCULAR HGB CONC 31.4 g/dl (32.0-36.5); MEAN CORPUSCULAR VOLUME 89.5 fl (80.0-96.0); RED CELL DISTRIBUTION WIDTH 15.7 % (11.5-14.5); WHITE BLOOD COUNT 7.2 K/mm3 (4.0-10.0)
[2016-10-06 12:27] LABS: CALCIUM LEVEL 8.6 MG/DL (8.5-10.1); CREATININE FOR GFR 3.54 MG/DL (0.70-1.30); GLOMERULAR FILTRATION RATE 18.9 (>56); POTASSIUM SERUM 4.3 MEQ/L (3.5-5.1)
== END ==
PROVIDERS: ATTEND Internal Medicine
DX: I50.9 Heart failure, unspecified (principal); D64.9 Anemia, unspecified

== ENCOUNTER → 2016-10-09 | Outpatient (REF) | payer MEDICARE, MEDICAID ==
[2016-10-09 10:05] LABS: BASO % 0.6 % (0.0-1.0); EOS # 0.6 K/mm3 (0.0-0.50); EOS % 7.2 % (0.0-3.0); LARGE UNSTAINED CELL # 0.2 K/mm3 (0.0-0.4); LYMPH # 0.7 K/mm3 (1.5-4.5); LYMPH % 8.8 % (24.0-44.0); MEAN CORPUSCULAR HEMOGLOBIN 29.1 pg (27.0-33.0); MEAN CORPUSCULAR HGB CONC 32.8 g/dl (32.0-36.5); MEAN CORPUSCULAR VOLUME 88.7 fl (80.0-96.0); MONO # 0.6 K/mm3 (0.0-0.8); MONO % 6.9 % (0.0-5.0); NEUTROPHILS # 5.9 K/mm3 (1.8-7.7); NEUTROPHILS % 74.4 % (36.0-66.0); PLATELET COUNT, AUTOMATED 244 k/mm3 (150-450); RED CELL DISTRIBUTION WIDTH 15.2 % (11.5-14.5)
[2016-10-09 10:37] LABS: ALBUMIN 2.5 GM/DL (3.2-5.2); ALBUMIN/GLOBULIN RATIO 0.66 (1.00-1.93); BILIRUBIN,TOTAL 0.4 MG/DL (0.2-1.0); CALCIUM LEVEL 8.2 MG/DL (8.5-10.1); CREATININE FOR GFR 3.43 MG/DL (0.70-1.30); GLOMERULAR FILTRATION RATE 19.6 (>56); POTASSIUM SERUM 4.4 MEQ/L (3.5-5.1); TOTAL PROTEIN 6.3 GM/DL (6.4-8.2)
== END ==
PROVIDERS: ATTEND Internal Medicine
DX: R10.11 Right upper quadrant pain (principal)

== ENCOUNTER → 2016-10-10 | Outpatient (REF) | payer MEDICARE, MEDICAID ==
[2016-10-10 07:51] LABS: MEAN CORPUSCULAR HGB CONC 32.1 g/dl (32.0-36.5); MEAN CORPUSCULAR VOLUME 90.4 fl (80.0-96.0); RED CELL DISTRIBUTION WIDTH 15.1 % (11.5-14.5); WHITE BLOOD COUNT 8.2 K/mm3 (4.0-10.0)
== END ==
PROVIDERS: ATTEND Internal Medicine
DX: D64.9 Anemia, unspecified (principal)

== ENCOUNTER → 2016-10-14 | Outpatient (REF) | payer MEDICARE, MEDICAID ==
[2016-10-14 11:51] LABS: MEAN CORPUSCULAR HEMOGLOBIN 29.4 pg (27.0-33.0); RED CELL DISTRIBUTION WIDTH 15.1 % (11.5-14.5); WHITE BLOOD COUNT 6.3 K/mm3 (4.0-10.0)
[2016-10-14 12:24] LABS: CALCIUM LEVEL 8.4 MG/DL (8.5-10.1); CREATININE FOR GFR 3.27 MG/DL (0.70-1.30); GLOMERULAR FILTRATION RATE 20.7 (>56)
== END ==
PROVIDERS: ATTEND Internal Medicine
DX: R73.01 Impaired fasting glucose (principal); E78.2 Mixed hyperlipidemia; R06.9 Unspecified abnormalities of breathing

== ENCOUNTER → 2016-10-15 | Outpatient (REF) | payer MEDICARE, MEDICAID ==
[2016-10-15 09:27] LABS: MEAN CORPUSCULAR HEMOGLOBIN 30.3 pg (27.0-33.0); MEAN CORPUSCULAR VOLUME 89.3 fl (80.0-96.0); RED CELL DISTRIBUTION WIDTH 15.3 % (11.5-14.5); WHITE BLOOD COUNT 6.7 K/mm3 (4.0-10.0)
== END ==
PROVIDERS: ATTEND Internal Medicine
DX: D64.9 Anemia, unspecified (principal)

== ENCOUNTER → 2016-10-16 | Outpatient (REF) | payer MEDICARE, MEDICAID ==
[2016-10-16 12:15] LABS: MEAN CORPUSCULAR HEMOGLOBIN 28.9 pg (27.0-33.0); MEAN CORPUSCULAR VOLUME 90.3 fl (80.0-96.0); RED CELL DISTRIBUTION WIDTH 15.2 % (11.5-14.5); WHITE BLOOD COUNT 7.6 K/mm3 (4.0-10.0)
== END ==
PROVIDERS: ATTEND Internal Medicine
DX: D64.9 Anemia, unspecified (principal)

== ENCOUNTER 2016-10-17 10:42 | Outpatient (CLI) | payer MEDICARE, MEDICAID ==
[~2016-10-17 10:42] MED LIST changes: +ACETAMINOPHEN TAB 650MG DOSE (2X325MG) PO SCH; +diphenhydrAMINE 25 MG CAP PO SCH
[2016-10-17 11:00] VITALS: BP_SYST 179; BP_SYST 180; BP_DIAS 80; BP_DIAS 86
[2016-10-17] MEDS ORDERED: TORSEMIDE 20 MG TAB PO ONE (11:00)
== END 2016-10-17 20:20 ==
LOC: M OPCLI4PV 10:42 → M MSPAV 10:45 → M OPCLI4PV 20:20
PROVIDERS: ATTEND Physician Assistant
DX: D64.9 Anemia, unspecified (principal); Z79.899 Other long term (current) drug therapy
CPT/HCPCS: 36430; 85027; 86850; 86900; 86901; 86920; P9016

== ENCOUNTER → 2016-10-17 | Outpatient (REF) | payer MEDICARE, MEDICAID ==
[2016-10-17 11:12] LABS: MEAN CORPUSCULAR HEMOGLOBIN 29.5 pg (27.0-33.0); MEAN CORPUSCULAR HGB CONC 32.5 g/dl (32.0-36.5); MEAN CORPUSCULAR VOLUME 90.7 fl (80.0-96.0); RED CELL DISTRIBUTION WIDTH 15.6 % (11.5-14.5); WHITE BLOOD COUNT 7.7 K/mm3 (4.0-10.0)
== END ==
PROVIDERS: ATTEND Internal Medicine
DX: D64.9 Anemia, unspecified (principal)
CPT/HCPCS: 85027; 86850; 86900; 86901; 86920; P9016

== ENCOUNTER → 2016-10-20 | Outpatient (REF) | payer MEDICARE, MEDICAID ==
[~2016-10-20] MED LIST changes: -ACETAMINOPHEN TAB 650MG DOSE (2X325MG) PO SCH; -diphenhydrAMINE 25 MG CAP PO SCH
[2016-10-20 10:28] LABS: MEAN CORPUSCULAR HEMOGLOBIN 29.6 pg (27.0-33.0); MEAN CORPUSCULAR HGB CONC 32.5 g/dl (32.0-36.5); RED CELL DISTRIBUTION WIDTH 15.3 % (11.5-14.5); WHITE BLOOD COUNT 9.4 K/mm3 (4.0-10.0)
[2016-10-20 10:51] LABS: CALCIUM LEVEL 8.4 MG/DL (8.5-10.1); CREATININE FOR GFR 2.81 MG/DL (0.70-1.30); GLOMERULAR FILTRATION RATE 24.7 (>56); POTASSIUM SERUM 4.8 MEQ/L (3.5-5.1)
== END ==
PROVIDERS: ATTEND Internal Medicine
DX: D64.9 Anemia, unspecified (principal); R06.9 Unspecified abnormalities of breathing

== ENCOUNTER → 2016-10-28 | Outpatient (REF) | payer MEDICARE, MEDICAID ==
[2016-10-28 11:37] LABS: MEAN CORPUSCULAR HGB CONC 33.2 g/dl (32.0-36.5); MEAN CORPUSCULAR VOLUME 90.4 fl (80.0-96.0); RED CELL DISTRIBUTION WIDTH 15.5 % (11.5-14.5); WHITE BLOOD COUNT 7.6 K/mm3 (4.0-10.0)
[2016-10-28 12:09] LABS: CALCIUM LEVEL 8.6 MG/DL (8.5-10.1); CREATININE FOR GFR 2.99 MG/DL (0.70-1.30); POTASSIUM SERUM 4.6 MEQ/L (3.5-5.1)
== END ==
PROVIDERS: ATTEND Internal Medicine
DX: Z00.00 Encounter for general adult medical examination without abnormal findings (principal); E78.5 Hyperlipidemia, unspecified; R06.9 Unspecified abnormalities of breathing

== ENCOUNTER → 2016-11-11 | Outpatient (REF) | payer MEDICARE, MEDICAID ==
[2016-11-11 10:59] LABS: MEAN CORPUSCULAR HEMOGLOBIN 29.7 pg (27.0-33.0); MEAN CORPUSCULAR HGB CONC 33.1 g/dl (32.0-36.5); MEAN CORPUSCULAR VOLUME 89.8 fl (80.0-96.0); RED CELL DISTRIBUTION WIDTH 15.2 % (11.5-14.5); WHITE BLOOD COUNT 7.5 K/mm3 (4.0-10.0)
[2016-11-11 11:14] LABS: CALCIUM LEVEL 8.5 MG/DL (8.5-10.1); CREATININE FOR GFR 3.14 MG/DL (0.70-1.30); GLOMERULAR FILTRATION RATE 21.7 (>56); POTASSIUM SERUM 4.4 MEQ/L (3.5-5.1)
== END ==
PROVIDERS: ATTEND Internal Medicine
DX: D64.9 Anemia, unspecified (principal)

== ENCOUNTER → 2016-11-18 | Outpatient (REF) | payer MEDICARE, MEDICAID ==
[2016-11-18 12:06] LABS: MEAN CORPUSCULAR HEMOGLOBIN 30.2 pg (27.0-33.0); MEAN CORPUSCULAR HGB CONC 33.1 g/dl (32.0-36.5); MEAN CORPUSCULAR VOLUME 91.2 fl (80.0-96.0); RED CELL DISTRIBUTION WIDTH 15.3 % (11.5-14.5); WHITE BLOOD COUNT 6.9 K/mm3 (4.0-10.0)
[2016-11-18 12:20] LABS: ANION GAP 8 MEQ/L (8-16); BLOOD UREA NITROGEN 76 MG/DL (7-18); CALCIUM LEVEL 8.3 MG/DL (8.5-10.1); CARBON DIOXIDE LEVEL 30 MEQ/L (21-32); CHLORIDE LEVEL 103 MEQ/L (98-107); CREATININE FOR GFR 3.57 MG/DL (0.70-1.30); GLOMERULAR FILTRATION RATE 18.7 (>56); GLUCOSE, FASTING 291 MG/DL (70-105); POTASSIUM SERUM 4.4 MEQ/L (3.5-5.1); SODIUM LEVEL 141 MEQ/L (136-145); TOTAL PROTEIN 6.5 GM/DL (6.4-8.2)
[2016-11-20 10:24] LABS: ALBUMIN 2.99 GM/DL (3.29-5.55); GAMMA GLOBULIN % 19.1 % (11.1-18.8)
== END ==
PROVIDERS: ATTEND Internal Medicine
DX: D64.9 Anemia, unspecified (principal); I50.9 Heart failure, unspecified; N18.9 Chronic kidney disease, unspecified

== ENCOUNTER → 2016-11-25 | Outpatient (REF) | payer MEDICARE, MEDICAID ==
[2016-11-25 14:02] LABS: MEAN CORPUSCULAR HEMOGLOBIN 30.7 pg (27.0-33.0); RED CELL DISTRIBUTION WIDTH 15.4 % (11.5-14.5); WHITE BLOOD COUNT 7.3 K/mm3 (4.0-10.0)
[2016-11-25 15:23] LABS: CALCIUM LEVEL 8.3 MG/DL (8.5-10.1); CREATININE FOR GFR 2.96 MG/DL (0.70-1.30); GLOMERULAR FILTRATION RATE 23.3 (>56); POTASSIUM SERUM 4.6 MEQ/L (3.5-5.1)
== END ==
PROVIDERS: ATTEND Internal Medicine
DX: N18.9 Chronic kidney disease, unspecified (principal)

== ENCOUNTER → 2016-11-27 | Outpatient (REF) | payer MEDICARE, MEDICAID ==
[2016-11-27 13:53] LABS: MEAN CORPUSCULAR HEMOGLOBIN 30.6 pg (27.0-33.0); MEAN CORPUSCULAR VOLUME 90.1 fl (80.0-96.0); RED CELL DISTRIBUTION WIDTH 15.5 % (11.5-14.5); WHITE BLOOD COUNT 7.3 K/mm3 (4.0-10.0)
== END ==
PROVIDERS: ATTEND Internal Medicine
DX: D64.9 Anemia, unspecified (principal)

== ENCOUNTER → 2016-12-02 | Outpatient (REF) | payer MEDICARE, MEDICAID ==
[2016-12-02 10:37] LABS: MEAN CORPUSCULAR HEMOGLOBIN 30.9 pg (27.0-33.0); MEAN CORPUSCULAR HGB CONC 33.6 g/dl (32.0-36.5); MEAN CORPUSCULAR VOLUME 92.1 fl (80.0-96.0); RED CELL DISTRIBUTION WIDTH 15.6 % (11.5-14.5); WHITE BLOOD COUNT 7.5 K/mm3 (4.0-10.0)
[2016-12-02 10:57] LABS: CALCIUM LEVEL 7.7 MG/DL (8.5-10.1); CREATININE FOR GFR 3.45 MG/DL (0.70-1.30); GLOMERULAR FILTRATION RATE 19.5 (>56); POTASSIUM SERUM 4.5 MEQ/L (3.5-5.1)
== END ==
PROVIDERS: ATTEND Internal Medicine
DX: D64.9 Anemia, unspecified (principal)

== ENCOUNTER → 2016-12-04 | Outpatient (REF) | payer MEDICARE, MEDICAID ==
[2016-12-04 15:18] LABS: MEAN CORPUSCULAR HEMOGLOBIN 30.7 pg (27.0-33.0); MEAN CORPUSCULAR HGB CONC 33.1 g/dl (32.0-36.5); MEAN CORPUSCULAR VOLUME 92.8 fl (80.0-96.0); RED CELL DISTRIBUTION WIDTH 15.4 % (11.5-14.5); WHITE BLOOD COUNT 6.7 K/mm3 (4.0-10.0)
== END ==
PROVIDERS: ATTEND Internal Medicine
DX: D64.9 Anemia, unspecified (principal)

== ENCOUNTER → 2016-12-09 | Outpatient (REF) | payer MEDICARE, MEDICAID ==
[2016-12-09 11:19] LABS: MEAN CORPUSCULAR HEMOGLOBIN 30.8 pg (27.0-33.0); MEAN CORPUSCULAR HGB CONC 33.8 g/dl (32.0-36.5); MEAN CORPUSCULAR VOLUME 91.1 fl (80.0-96.0); RED CELL DISTRIBUTION WIDTH 15.3 % (11.5-14.5); WHITE BLOOD COUNT 7.4 K/mm3 (4.0-10.0)
[2016-12-09 11:42] LABS: CALCIUM LEVEL 8.1 MG/DL (8.5-10.1); CREATININE FOR GFR 3.21 MG/DL (0.70-1.30); GLOMERULAR FILTRATION RATE 21.2 (>56); POTASSIUM SERUM 4.3 MEQ/L (3.5-5.1)
== END ==
PROVIDERS: ATTEND Internal Medicine
DX: D64.9 Anemia, unspecified (principal)

== ENCOUNTER → 2016-12-10 | Outpatient (REF) | payer MEDICARE, MEDICAID | PROVIDERS: ATTEND Internal Medicine | DX: D64.9 Anemia, unspecified (principal) ==

== ENCOUNTER → 2016-12-11 | Outpatient (REF) | payer MEDICARE, MEDICAID ==
[2016-12-11 11:30] LABS: MEAN CORPUSCULAR HEMOGLOBIN 30.1 pg (27.0-33.0); MEAN CORPUSCULAR HGB CONC 32.5 g/dl (32.0-36.5); MEAN CORPUSCULAR VOLUME 92.4 fl (80.0-96.0); RED CELL DISTRIBUTION WIDTH 15.4 % (11.5-14.5)
== END ==
PROVIDERS: ATTEND Internal Medicine
DX: D64.9 Anemia, unspecified (principal)

== ENCOUNTER 2016-12-12 09:42 | Outpatient (CLI) | payer MEDICARE, MEDICAID ==
[2016-12-12] VITALS (7 sets, daily range): BP systolic 125–164; BP diastolic 58–80
[2016-12-12] MEDS ORDERED: diphenhydrAMINE 25 MG CAP PO ONE (10:00)
[2016-12-12] MEDS ORDERED: ACETAMINOPHEN TAB 650MG DOSE (2X325MG) PO ONE (10:15)
[2016-12-12] MEDS ORDERED: TORSEMIDE 20 MG TAB PO ONE (10:15)
== END 2016-12-12 22:00 ==
LOC: M OPCLI4PV 09:42 → M MSPAV 09:45 → M OPCLI4PV 22:00
PROVIDERS: ATTEND Physician Assistant
DX: D64.9 Anemia, unspecified (principal); Z79.899 Other long term (current) drug therapy
CPT/HCPCS: 36415; 36430; 86850; 86900; 86901; 86920; P9016

== ENCOUNTER → 2016-12-13 | Outpatient (REF) | payer MEDICARE, MEDICAID ==
[2016-12-13 15:50] LABS: MEAN CORPUSCULAR HEMOGLOBIN 31.6 pg (27.0-33.0); MEAN CORPUSCULAR HGB CONC 33.7 g/dl (32.0-36.5); MEAN CORPUSCULAR VOLUME 93.8 fl (80.0-96.0); RED CELL DISTRIBUTION WIDTH 15.4 % (11.5-14.5); WHITE BLOOD COUNT 4.7 K/mm3 (4.0-10.0)
== END ==
LOC: M LAB REF 15:15
PROVIDERS: ATTEND Internal Medicine
DX: D64.9 Anemia, unspecified (principal)

== ENCOUNTER → 2016-12-15 | Outpatient (REF) | payer MEDICARE, MEDICAID ==
[2016-12-15 12:17] LABS: MEAN CORPUSCULAR HEMOGLOBIN 30.6 pg (27.0-33.0); MEAN CORPUSCULAR HGB CONC 33.1 g/dl (32.0-36.5); MEAN CORPUSCULAR VOLUME 92.5 fl (80.0-96.0); RED CELL DISTRIBUTION WIDTH 15.1 % (11.5-14.5); WHITE BLOOD COUNT 6.7 K/mm3 (4.0-10.0)
[2016-12-15 13:11] LABS: CALCIUM LEVEL 8.2 MG/DL (8.5-10.1); CREATININE FOR GFR 3.22 MG/DL (0.70-1.30); GLOMERULAR FILTRATION RATE 21.1 (>56); POTASSIUM SERUM 4.6 MEQ/L (3.5-5.1)
== END ==
PROVIDERS: ATTEND Internal Medicine
DX: D64.9 Anemia, unspecified (principal); I50.9 Heart failure, unspecified; N18.9 Chronic kidney disease, unspecified

== ENCOUNTER → 2016-12-18 | Outpatient (REF) | payer MEDICARE, MEDICAID ==
[2016-12-18 19:06] LABS: MEAN CORPUSCULAR HEMOGLOBIN 30.6 pg (27.0-33.0); MEAN CORPUSCULAR HGB CONC 33.1 g/dl (32.0-36.5); MEAN CORPUSCULAR VOLUME 92.4 fl (80.0-96.0); RED CELL DISTRIBUTION WIDTH 14.9 % (11.5-14.5); WHITE BLOOD COUNT 9.3 K/mm3 (4.0-10.0)
== END ==
PROVIDERS: ATTEND Internal Medicine
DX: D64.9 Anemia, unspecified (principal)

== ENCOUNTER → 2016-12-23 | Outpatient (REF) | payer MEDICARE, MEDICAID ==
[2016-12-23 10:28] LABS: MEAN CORPUSCULAR HEMOGLOBIN 30.6 pg (27.0-33.0); MEAN CORPUSCULAR HGB CONC 33.1 g/dl (32.0-36.5); MEAN CORPUSCULAR VOLUME 92.3 fl (80.0-96.0); RED CELL DISTRIBUTION WIDTH 14.8 % (11.5-14.5); WHITE BLOOD COUNT 7.2 K/mm3 (4.0-10.0)
[2016-12-23 10:45] LABS: CALCIUM LEVEL 8.1 MG/DL (8.5-10.1); CREATININE FOR GFR 3.62 MG/DL (0.70-1.30); GLOMERULAR FILTRATION RATE 18.4 (>56); POTASSIUM SERUM 4.5 MEQ/L (3.5-5.1)
== END ==
PROVIDERS: ATTEND Internal Medicine
DX: D64.9 Anemia, unspecified (principal); R73.01 Impaired fasting glucose

== ENCOUNTER → 2016-12-30 | Outpatient (REF) | payer MEDICARE, MEDICAID ==
[2016-12-30 09:15] LABS: MEAN CORPUSCULAR HEMOGLOBIN 29.6 pg (27.0-33.0); MEAN CORPUSCULAR VOLUME 92.4 fl (80.0-96.0); RED CELL DISTRIBUTION WIDTH 14.1 % (11.5-14.5); WHITE BLOOD COUNT 7.8 10^3/uL (4.0-10.0)
[2016-12-30 09:44] LABS: CALCIUM LEVEL 8.5 MG/DL (8.5-10.1); CREATININE FOR GFR 3.36 MG/DL (0.70-1.30); GLOMERULAR FILTRATION RATE 20.1 (>56); POTASSIUM SERUM 4.6 MEQ/L (3.5-5.1)
== END ==
PROVIDERS: ATTEND Internal Medicine
DX: D64.9 Anemia, unspecified (principal)

== ENCOUNTER → 2017-01-06 | Outpatient (REF) | payer MEDICARE, MEDICAID | PROVIDERS: ATTEND Internal Medicine | DX: D64.9 Anemia, unspecified (principal); I50.9 Heart failure, unspecified; N18.9 Chronic kidney disease, unspecified; Z53.9 Procedure and treatment not carried out, unspecified reason ==

== ENCOUNTER 2017-01-13 16:34 | Outpatient (CLI) | payer MEDICARE, MEDICAID ==
[~2017-01-13] VITALS: Ht 162.6 cm; Wt 165.4 kg
[~2017-01-13 16:34] MED LIST changes: +ACETAMINOPHEN TAB 650MG DOSE (2X325MG) PO SCH; +diphenhydrAMINE 25 MG CAP PO SCH
[2017-01-13] MEDS ORDERED: TORSEMIDE 100 MG TAB PO ONE (20:00)
== END 2017-01-14 00:20 ==
LOC: M OPCLI4PR 16:34 → M MS4PR 16:34 → M OPCLI4PR 01-14 00:20
PROVIDERS: ATTEND Internal Medicine
DX: D64.9 Anemia, unspecified (principal); Z79.899 Other long term (current) drug therapy
CPT/HCPCS: 36415; 36430; 80048; 83880; 85027; 86850; 86900; 86901; 86920; P9016

== ENCOUNTER → 2017-01-13 | Outpatient (REF) | payer MEDICARE, MEDICAID ==
[2017-01-13 12:02] LABS: MEAN CORPUSCULAR HEMOGLOBIN 30.6 pg (27.0-33.0); MEAN CORPUSCULAR HGB CONC 32.3 g/dl (32.0-36.5); MEAN CORPUSCULAR VOLUME 94.8 fl (80.0-96.0); RED CELL DISTRIBUTION WIDTH 14.2 % (11.5-14.5); WHITE BLOOD COUNT 8.8 10^3/uL (4.0-10.0)
[2017-01-13 12:47] LABS: CALCIUM LEVEL 8.4 MG/DL (8.5-10.1); CREATININE FOR GFR 3.74 MG/DL (0.70-1.30); GLOMERULAR FILTRATION RATE 17.8 (>56)
== END ==
PROVIDERS: ATTEND Internal Medicine
DX: D64.9 Anemia, unspecified (principal)

== ENCOUNTER → 2017-01-13 | Outpatient (REF) | payer MEDICARE, MEDICAID | PROVIDERS: ATTEND Internal Medicine | DX: D64.9 Anemia, unspecified (principal) ==

== ENCOUNTER → 2017-01-14 | Outpatient (REF) | payer MEDICARE, MEDICAID ==
[~2017-01-14] MED LIST changes: -ACETAMINOPHEN TAB 650MG DOSE (2X325MG) PO SCH; -diphenhydrAMINE 25 MG CAP PO SCH
[2017-01-14 09:44] LABS: MEAN CORPUSCULAR HEMOGLOBIN 29.8 pg (27.0-33.0); MEAN CORPUSCULAR HGB CONC 32.9 g/dl (32.0-36.5); MEAN CORPUSCULAR VOLUME 90.8 fl (80.0-96.0); RED CELL DISTRIBUTION WIDTH 15.9 % (11.5-14.5); WHITE BLOOD COUNT 7.5 10^3/uL (4.0-10.0)
== END ==
PROVIDERS: ATTEND Internal Medicine
DX: D64.9 Anemia, unspecified (principal)

== ENCOUNTER → 2017-01-19 | Outpatient (REF) | payer MEDICARE, MEDICAID ==
[2017-01-19 11:13] LABS: MEAN CORPUSCULAR HEMOGLOBIN 30.2 pg (27.0-33.0); MEAN CORPUSCULAR HGB CONC 32.5 g/dl (32.0-36.5); MEAN CORPUSCULAR VOLUME 93.1 fl (80.0-96.0); RED CELL DISTRIBUTION WIDTH 15.3 % (11.5-14.5); WHITE BLOOD COUNT 6.9 10^3/uL (4.0-10.0)
[2017-01-19 11:39] LABS: CALCIUM LEVEL 7.8 MG/DL (8.5-10.1); CREATININE FOR GFR 3.95 MG/DL (0.70-1.30); GLOMERULAR FILTRATION RATE 16.7 (>56); POTASSIUM SERUM 4.3 MEQ/L (3.5-5.1)
== END ==
PROVIDERS: ATTEND Internal Medicine
DX: D64.9 Anemia, unspecified (principal)

== ENCOUNTER → 2017-01-27 | Outpatient (REF) | payer MEDICARE, MEDICAID ==
[2017-01-27 12:16] LABS: MEAN CORPUSCULAR HEMOGLOBIN 30.2 pg (27.0-33.0); MEAN CORPUSCULAR HGB CONC 31.9 g/dl (32.0-36.5); MEAN CORPUSCULAR VOLUME 94.5 fl (80.0-96.0); PLATELET COUNT, AUTOMATED 180 10^3/uL (150-450); RED CELL DISTRIBUTION WIDTH 15.3 % (11.5-14.5); WHITE BLOOD COUNT 8.1 10^3/uL (4.0-10.0)
[2017-01-27 12:46] LABS: CALCIUM LEVEL 7.6 MG/DL (8.5-10.1); CREATININE FOR GFR 3.89 MG/DL (0.70-1.30); POTASSIUM SERUM 4.3 MEQ/L (3.5-5.1)
== END ==
PROVIDERS: ATTEND Internal Medicine
DX: I50.9 Heart failure, unspecified (principal); N18.9 Chronic kidney disease, unspecified

== ENCOUNTER → 2017-01-30 | Outpatient (CLI) | payer MEDICARE, MEDICAID ==
--- NOTE | 2017-01-30 14:11 | REP ---
RENAL AND BLADDER ULTRASOUND: Real-time sonographic evaluation of the kidneys and bladder are performed. Study is limited due to patient body habitus. Right kidney measures 11.5 x 6.9 x 5.4 cm and left kidney 12.0 x 6.7 x 7.2 cm. There is mild right hydronephrosis. There is no definite left hydronephrosis. There appears to be a cyst in the left lower pole 3.0 x 2.4 x 2.3 cm. The urinary bladder appears moderately distended containing some dependent debris. It measures 12.4 x 8.6 x 7.1 cm. There is no gross mass or calculus. IMPRESSION: Debris in the bladder. Mild right hydronephrosis. Signed by Inder Hollis MD 01/30/2017 05:51 P
== END ==
LOC: M RAD 13:04
PROVIDERS: ATTEND Physician Assistant
DX: D64.9 Anemia, unspecified (principal); N18.9 Chronic kidney disease, unspecified; N13.39 Other hydronephrosis; N28.1 Cyst of kidney, acquired; N32.89 Other specified disorders of bladder

== ENCOUNTER → 2017-01-30 | Outpatient (REF) | payer MEDICARE, MEDICAID ==
[2017-01-30 10:38] LABS: PERCENT SATURATION 17.2 % (19.7-50.0)
[2017-01-30 15:00] LABS: RENAL EPITHELIAL CELLS 6 /HPF; YEAST LIKE CELL URINE AUTO SMALL
== END ==
PROVIDERS: ATTEND Internal Medicine
DX: D64.9 Anemia, unspecified (principal); N18.3 Chronic kidney disease, stage 3 (moderate); N13.39 Other hydronephrosis; N28.1 Cyst of kidney, acquired; N32.89 Other specified disorders of bladder; R30.9 Painful micturition, unspecified; E11.9 Type 2 diabetes mellitus without complications

== ENCOUNTER → 2017-02-03 | Outpatient (REF) | payer MEDICARE, MEDICAID ==
[~2017-02-03] MED LIST changes: +ACEP650S PR; +ACET1TAB17 PO; +ALBU83IN INH; +CALC1CAP31 PO; +CALC500C16 PO; +COLA100C5 PO; +DOCU100T5 PO; +NORV5TAB PO; +OMEP20CA3 PO; +PROC20004 SQ; +SENN1TAB10 PO; +VENL150C43 PO
[2017-02-03 11:10] LABS: MEAN CORPUSCULAR HEMOGLOBIN 29.7 pg (27.0-33.0); MEAN CORPUSCULAR HGB CONC 31.5 g/dl (32.0-36.5); MEAN CORPUSCULAR VOLUME 94.4 fl (80.0-96.0); PLATELET COUNT, AUTOMATED 211 10^3/uL (150-450); RED CELL DISTRIBUTION WIDTH 15.5 % (11.5-14.5); WHITE BLOOD COUNT 7.4 10^3/uL (4.0-10.0)
[2017-02-03 11:47] LABS: CREATININE FOR GFR 3.97 MG/DL (0.70-1.30); GLOMERULAR FILTRATION RATE 16.6 (>56); POTASSIUM SERUM 4.4 MEQ/L (3.5-5.1)
== END ==
PROVIDERS: ATTEND Internal Medicine
DX: D64.9 Anemia, unspecified (principal)

== ENCOUNTER → 2017-02-12 | Outpatient (REF) | payer MEDICARE, MEDICAID ==
[~2017-02-12] MED LIST changes: -ACEP650S PR; -ACET1TAB17 PO; -ALBU83IN INH; -CALC1CAP31 PO; -CALC500C16 PO; -COLA100C5 PO; -DOCU100T5 PO; -NORV5TAB PO; -OMEP20CA3 PO; -PROC20004 SQ; -SENN1TAB10 PO; -VENL150C43 PO
[2017-02-12 18:48] LABS: BASO % 0.4 % (0.0-1.0); EOS # 0.7 10^3/uL (0.0-0.50); EOS % 8.5 % (0.0-3.0); IMMATURE GRANULOCYTE % 0.3 % (0-0); LYMPH # 0.8 10^3/uL (1.5-4.5); LYMPH % 10.5 % (24.0-44.0); MEAN CORPUSCULAR HEMOGLOBIN 30.2 pg (27.0-33.0); MEAN CORPUSCULAR HGB CONC 32.1 g/dl (32.0-36.5); MONO # 0.7 10^3/uL (0.0-0.8); MONO % 8.8 % (0.0-5.0); NEUTROPHILS # 5.5 10^3/uL (1.8-7.7); NEUTROPHILS % 71.5 % (36.0-66.0); PLATELET COUNT, AUTOMATED 159 10^3/uL (150-450); RED CELL DISTRIBUTION WIDTH 16.4 % (11.5-14.5); WHITE BLOOD COUNT 7.7 10^3/uL (4.0-10.0)
[2017-02-12 19:00] LABS: ALBUMIN 2.7 GM/DL (3.2-5.2); ANION GAP 8 MEQ/L (8-16); BLOOD UREA NITROGEN 71 MG/DL (7-18); CALCIUM LEVEL 8.2 MG/DL (8.5-10.1); CARBON DIOXIDE LEVEL 32 MEQ/L (21-32); CHLORIDE LEVEL 105 MEQ/L (98-107); CHOLESTEROL LEVEL 142 MG/DL (<200); CREATININE FOR GFR 4.06 MG/DL (0.70-1.30); GLOMERULAR FILTRATION RATE 16.2 (>56); GLUCOSE, FASTING 72 MG/DL (70-105); MAGNESIUM LEVEL 2.2 MG/DL (1.8-2.4); PHOSPHORUS LEVEL 3.4 MG/DL (2.5-4.9); POTASSIUM SERUM 4.3 MEQ/L (3.5-5.1); SODIUM LEVEL 145 MEQ/L (136-145); TRIGLYCERIDES LEVEL 123 MG/DL (<150); URIC ACID 7.3 MG/DL (3.5-7.2)
[2017-02-13 10:43] LABS: HEPATITIS B SURFACE ANTIBODY NEGATIVE (POSITIVE)
== END ==
PROVIDERS: ATTEND Internal Medicine Nephrology
DX: E11.22 Type 2 diabetes mellitus with diabetic chronic kidney disease (principal); N18.4 Chronic kidney disease, stage 4 (severe); I12.9 Hypertensive chronic kidney disease with stage 1 through stage 4 chronic kidney disease, or unspecified chronic kidney disease

== ENCOUNTER → 2017-02-17 | Outpatient (REF) | payer MEDICARE, MEDICAID ==
[2017-02-17 11:01] LABS: MEAN CORPUSCULAR HEMOGLOBIN 30.7 pg (27.0-33.0); MEAN CORPUSCULAR VOLUME 95.8 fl (80.0-96.0); PLATELET COUNT, AUTOMATED 170 10^3/uL (150-450); RED CELL DISTRIBUTION WIDTH 16.5 % (11.5-14.5); WHITE BLOOD COUNT 9.1 10^3/uL (4.0-10.0)
[2017-02-17 11:35] LABS: CALCIUM LEVEL 7.9 MG/DL (8.5-10.1); CREATININE FOR GFR 4.36 MG/DL (0.70-1.30); GLOMERULAR FILTRATION RATE 14.9 (>56); POTASSIUM SERUM 4.7 MEQ/L (3.5-5.1)
== END ==
PROVIDERS: ATTEND Internal Medicine
DX: J44.9 Chronic obstructive pulmonary disease, unspecified (principal); N18.9 Chronic kidney disease, unspecified; D64.9 Anemia, unspecified

== ENCOUNTER → 2017-02-17 | Outpatient (CLI) | payer MEDICARE, MEDICAID ==
--- NOTE | 2017-02-17 11:53 | REP ---
ULTRASOUND URINARY BLADDER: Real-time sonographic evaluation of the urinary bladder performed. The bladder measures 6.0 x 7.9 x 5.0 cm for a total volume of 258 mL. Ureteral jets are not visualized with Doppler color evaluation. No mass or calculus is seen of the bladder. Post-void residual is 8 mL, which is 3 % of the original volume. IMPRESSION: No evidence of bladder mass or calculus. There is not significant post-void residual. Signed by Inder Hollis MD 02/17/2017 01:30 P
--- NOTE | 2017-02-17 12:16 | REP ---
RENAL NUCLEAR SCAN WITH FLOW AND FUNCTION: Following the intravenous administration of 8.8 millicuries technetium 99m MAG3, immediate flow images are obtained in the posterior projection showing poor perfusion bilaterally. Delayed renal function images show delayed, gradual increasing renal uptake bilaterally in a fairly symmetrical fashion with delayed excretion. Split function is 33.1% on the left and 66.9% on the right. [id number] is delayed, 20 minutes on the left and 26 minutes on the right. T-1/2 could not calculated as both renal function curves are upward sloping throughout the 30-minute exam. The patient could not void on delayed imaging, with the bladder demonstrating a moderate amount of activity. IMPRESSION: Significantly compromised renal perfusion bilaterally as well as significantly compromised renal function. There may be an element of urinary tract obstruction. Signed by Inder Hollis MD 02/17/2017 01:31 P
== END ==
LOC: M RAD 08:48
PROVIDERS: ATTEND Internal Medicine Nephrology
DX: N28.89 Other specified disorders of kidney and ureter (principal); N13.30 Unspecified hydronephrosis; N18.4 Chronic kidney disease, stage 4 (severe); J44.9 Chronic obstructive pulmonary disease, unspecified; D64.9 Anemia, unspecified
CPT/HCPCS: 76857; 78707; 80048; 83880; 85027; A9562

== ENCOUNTER → 2017-02-19 | Outpatient (REF) | payer MEDICARE, MEDICAID ==
[~2017-02-19] MED LIST changes: +ACEP650S PR; +ACET1TAB17 PO; +ALBU83IN INH; +CALC1CAP31 PO; +CALC500C16 PO; +COLA100C5 PO; +DOCU100T5 PO; +NORV5TAB PO; +OMEP20CA3 PO; +PROC20004 SQ; +SENN1TAB10 PO; +VENL150C43 PO
[2017-02-19 13:51] LABS: MEAN CORPUSCULAR HGB CONC 31.3 g/dl (32.0-36.5); MEAN CORPUSCULAR VOLUME 95.7 fl (80.0-96.0); PLATELET COUNT, AUTOMATED 198 10^3/uL (150-450); RED CELL DISTRIBUTION WIDTH 16.7 % (11.5-14.5); WHITE BLOOD COUNT 8.1 10^3/uL (4.0-10.0)
== END ==
PROVIDERS: ATTEND Internal Medicine
DX: D64.9 Anemia, unspecified (principal)

== ENCOUNTER → 2017-02-23 | Outpatient (REF) | payer MEDICARE, MEDICAID ==
[~2017-02-23] MED LIST changes: +ASPI81TAEC PO; +CARV3.12 PO; +HYDR25TA PO
[2017-02-23 11:26] LABS: BASO % 0.5 % (0.0-1.0); EOS # 0.7 10^3/uL (0.0-0.50); EOS % 8.8 % (0.0-3.0); IMMATURE GRANULOCYTE % 0.5 % (0-0); LYMPH # 0.8 10^3/uL (1.5-4.5); LYMPH % 10.2 % (24.0-44.0); MEAN CORPUSCULAR HEMOGLOBIN 29.7 pg (27.0-33.0); MEAN CORPUSCULAR HGB CONC 31.4 g/dl (32.0-36.5); MEAN CORPUSCULAR VOLUME 94.6 fl (80.0-96.0); MONO # 0.5 10^3/uL (0.0-0.8); MONO % 5.8 % (0.0-5.0); NEUTROPHILS # 6.1 10^3/uL (1.8-7.7); NEUTROPHILS % 74.2 % (36.0-66.0); PLATELET COUNT, AUTOMATED 232 10^3/uL (150-450); RED CELL DISTRIBUTION WIDTH 17.1 % (11.5-14.5); WHITE BLOOD COUNT 8.2 10^3/uL (4.0-10.0)
[2017-02-23 12:29] LABS: ALBUMIN 2.7 GM/DL (3.2-5.2); CALCIUM LEVEL 8.3 MG/DL (8.8-10.2); CREATININE FOR GFR 4.15 MG/DL (0.70-1.30); GLOMERULAR FILTRATION RATE 15.7 (>49); MAGNESIUM LEVEL 1.8 MG/DL (1.8-2.4); PHOSPHORUS LEVEL 3.6 MG/DL (2.5-4.9); POTASSIUM SERUM 4.6 MEQ/L (3.5-5.1)
== END ==
PROVIDERS: ATTEND Internal Medicine
DX: E11.22 Type 2 diabetes mellitus with diabetic chronic kidney disease (principal); I12.9 Hypertensive chronic kidney disease with stage 1 through stage 4 chronic kidney disease, or unspecified chronic kidney disease; N18.4 Chronic kidney disease, stage 4 (severe); D64.9 Anemia, unspecified

== ENCOUNTER 2017-03-01 07:55 | Inpatient (IN) | payer MEDICARE, MEDICAID ==
[~2017-03-01] VITALS: Ht 165.1 cm; Wt 157.5 kg
[~2017-03-01 07:55] MED LIST changes: -ACEP650S PR; -ACET1TAB17 PO; -ALBU83IN INH; -ASPI81TAEC PO; -CALC1CAP31 PO; -CALC500C16 PO; -CARV3.12 PO; -COLA100C5 PO; -DOCU100T5 PO; -HYDR25TA PO; -NORV5TAB PO; -OMEP20CA3 PO; -PROC20004 SQ; -SENN1TAB10 PO; -VENL150C43 PO
[2017-03-01 08:15] LABS: ABG BASE EXCESS 0.4 (-2.0-2.0); ABG HCO3 26.9 MEQ/L (22.0-26.0); ABG PARTIAL PRESSURE CO2 52.6 mmHg (35.0-45.0); ABG PARTIAL PRESSURE O2 98.9 mmHg (75.0-100.0); ABG STANDARD HCO3 24.8 MEQ/L (22.0-26.0); ABG TOTAL CO2 28.5 MEQ/L (23.0-31.0); ABG pH (ARTERIAL) 7.326 UNITS (7.350-7.450)
[2017-03-01] MEDS ORDERED: methylPREDNISolone INJ 125 MG/2 ML VIAL (J2930) IV ONE (08:15)
[2017-03-01] MEDS ORDERED: FUROSEMIDE 100 MG/10 ML VIAL (J1940) IV ONE (08:15)
[2017-03-01] MEDS ORDERED: ACET1TAB17 PO (08:23)
[2017-03-01] MEDS ORDERED: CALC500C16 PO (08:23)
[2017-03-01] MEDS ORDERED: DOCU100T5 PO (08:23)
[2017-03-01] MEDS ORDERED: CALC1CAP31 PO (08:23)
[2017-03-01] MEDS ORDERED: ALBU83IN INH (08:23)
[2017-03-01] MEDS ORDERED: NORV5TAB PO (08:23)
[2017-03-01] MEDS ORDERED: OMEP20CA3 PO (08:23)
[2017-03-01] MEDS ORDERED: PROC20004 SQ (08:23)
[2017-03-01 08:26] LABS: BASO % 0.2 % (0.0-1.0); EOS % 0.2 % (0.0-3.0); IMMATURE GRANULOCYTE % 0.5 % (0-0); LYMPH % 1.3 % (24.0-44.0); MEAN CORPUSCULAR HEMOGLOBIN 29.8 pg (27.0-33.0); MEAN CORPUSCULAR VOLUME 96.3 fl (80.0-96.0); MONO # 1.2 10^3/uL (0.0-0.8); MONO % 6.4 % (0.0-5.0); NEUTROPHILS # 16.9 10^3/uL (1.8-7.7); NEUTROPHILS % 91.4 % (36.0-66.0); PLATELET COUNT, AUTOMATED 208 10^3/uL (150-450); RED CELL DISTRIBUTION WIDTH 17.8 % (11.5-14.5); WHITE BLOOD COUNT 18.5 10^3/uL (4.0-10.0)
[2017-03-01 08:47] LABS: LYMPH # 0.2 10^3/uL (1.5-4.5); POSITIVE DIFF POS FLAG
[2017-03-01 08:58] LABS: CALCIUM LEVEL 8.2 MG/DL (8.8-10.2); CREATININE FOR GFR 4.8 MG/DL (0.70-1.30); GLOMERULAR FILTRATION RATE 13.3 (>49); POTASSIUM SERUM 4.7 MEQ/L (3.5-5.1)
[2017-03-01] MEDS ORDERED: VENLAFAXINE 37.5 MG TAB PO SCH (09:00)
[2017-03-01] MEDS ORDERED: OXcarbazepine 300 MG TAB PO SCH (09:00)
[2017-03-01] MEDS ORDERED: DOCUSATE SODIUM 100 MG CAP PO SCH (09:00)
[2017-03-01] MEDS ORDERED: FERROUS SULFATE 325MG TAB PO SCH (09:00)
[2017-03-01] MEDS ORDERED: SENNA 8.6 MG TAB (SENOKOT) PO SCH (09:00)
[2017-03-01] MEDS ORDERED: amLODIPine 5 MG TAB PO SCH (09:00)
[2017-03-01] MEDS ORDERED: TAMSULOSIN 0.4 MG CAP PO SCH (09:00)
[2017-03-01] MEDS ORDERED: CARVedilol 12.5 MG TAB PO SCH (09:00)
[2017-03-01 09:03] LABS: ALBUMIN 2.7 GM/DL (3.2-5.2); ALBUMIN/GLOBULIN RATIO 0.73 (1.00-1.93); BILIRUBIN,DIRECT 0.2 MG/DL (0.0-0.2); BILIRUBIN,TOTAL 0.4 MG/DL (0.2-1.0); TOTAL PROTEIN 6.4 GM/DL (6.4-8.2)
--- NOTE | 2017-03-01 09:16 | REP ---
Clinical: Dyspnea and cough. Comparison: 07/24/2016. Findings: Indistinct pulmonary vasculature with perihilar and lower lobe opacities suggests CHF/pulmonary edema. Differential diagnosis includes multifocal pneumonia. Cardiomegaly is appreciated. No pneumothorax. Impression: CHF/pulmonary edema versus multifocal pneumonia. Signed by Ezra Hartman MD 03/01/2017 09:07 A
[2017-03-01 09:21] LABS: ABG HCO3 25.3 MEQ/L (22.0-26.0); ABG PARTIAL PRESSURE CO2 56.8 mmHg (35.0-45.0); ABG PARTIAL PRESSURE O2 130.1 mmHg (75.0-100.0); ABG STANDARD HCO3 22.8 MEQ/L (22.0-26.0); ABG TOTAL CO2 27.1 MEQ/L (23.0-31.0); ABG pH (ARTERIAL) 7.267 UNITS (7.350-7.450)
[2017-03-01] MEDS ORDERED: GLUCAGON FOR INJ 1 MG VIAL (J1610) SC PRN (10:00)
[2017-03-01] MEDS ORDERED: GLUCOSE 4 GM CHEW TABLET PO PRN (10:00)
[2017-03-01] MEDS ORDERED: DEXTROSE 50% 50 ML SYRINGE IV PRN (10:00)
[2017-03-01] MEDS ORDERED: IPRATROPIUM 0.5MG/ALBUTEROL 2.5MG INH SOL UD 3ML (DUONEB)(J7620) NEB PRN (10:00)
[2017-03-01] MEDS ORDERED: SENN1TAB10 PO (10:21)
[2017-03-01] MEDS ORDERED: ACEP650S PR (10:21)
[2017-03-01] MEDS ORDERED: ENEMENE16 PR (10:21)
[2017-03-01] MEDS ORDERED: COLA100C5 PO (10:21)
--- NOTE | 2017-03-01 11:37 | REP ---
Clinical: Flank pain. Hydronephrosis. Technique: Real time knowles scale ultrasound examination using curved array transducer. Findings: Evaluation is limited by body habitus. The bilateral kidneys are normal in contour, size, and echogenicity. No hydronephrosis is appreciated. The right kidney measures 7.6 x 4.3 x 4.3 cm. Left kidney measures 8.5 x 4.6 x 4.7 cm and there is evidence for a 2.2 cm mid pole cyst. Borrero catheter in collapsed bladder. Impression: Extremely limited examination due to body habitus. No obvious hydronephrosis. 2.2 cm left renal cyst suggested. Signed by Ezra Hartman MD 03/01/2017 11:28 A
[2017-03-01 11:42] LABS: ABG BASE EXCESS 1.5 (-2.0-2.0); ABG HCO3 30.5 MEQ/L (22.0-26.0); ABG PARTIAL PRESSURE O2 92.2 mmHg (75.0-100.0); ABG STANDARD HCO3 25.8 MEQ/L (22.0-26.0); ABG TOTAL CO2 32.8 MEQ/L (23.0-31.0)
[2017-03-01 11:50] LABS: ABG pH (ARTERIAL) 7.214 UNITS (7.350-7.450)
[2017-03-01 11:51] LABS: ABG PARTIAL PRESSURE CO2 77.2 mmHg (35.0-45.0)
[2017-03-01] MEDS: HumaLOG INSULIN (NovoLOG) PER UNIT SC SCH ×2 (12:00→17:07)
[2017-03-01] MEDS ORDERED: FLEET ENEMA PR PRN (12:15)
[2017-03-01] MEDS ORDERED: BISACODYL 10 MG SUPP PR PRN (12:15)
[2017-03-01] MEDS ORDERED: MOM 30ML SUSPENSION UDC PO PRN (12:15)
[2017-03-01 13:11] VITALS: BP 136/75
[2017-03-01 13:58] LABS: ABG BASE EXCESS 0.4 (-2.0-2.0); ABG HCO3 28.3 MEQ/L (22.0-26.0); ABG PARTIAL PRESSURE O2 80.9 mmHg (75.0-100.0); ABG STANDARD HCO3 24.8 MEQ/L (22.0-26.0); ABG TOTAL CO2 30.3 MEQ/L (23.0-31.0); ABG pH (ARTERIAL) 7.258 UNITS (7.350-7.450)
[2017-03-01] MEDS ORDERED: IPRATROPIUM 0.5MG/ALBUTEROL 2.5MG INH SOL UD 3ML (DUONEB)(J7620) NEB SCH (14:00)
[2017-03-01] MEDS ORDERED: HEPARIN SOD (PORCINE) 5000 UNITS/ML VIAL SC SCH (14:00)
[2017-03-01 14:01] LABS: ABG PARTIAL PRESSURE CO2 64.8 mmHg (35.0-45.0)
--- NOTE | 2017-03-01 14:07 | ECHO ---
DATE OF STUDY: 03/01/2017 DATE OF : 1955 REFERRING PHYSICIAN: Dr. Barbara Thompson INDICATION: Dyspnea. HEIGHT: 67 inches. WEIGHT: 366 pounds. 2-D MEASUREMENTS: Aortic root: 2.7 cm Proximal ascending aorta: 3.7 cm Left atrium: 5.2 cm Ventricular septum: 1.32 cm Posterior wall: 1.33 cm Left ventricle diastole: 5.6 cm LVOT: 2.4 cm Inferior vena cava: 2.3 cm DOPPLER MEASUREMENTS: Mild aortic stenosis Peak aortic valve velocity: 283 cm/sec Aortic valve VTI: 54.5 cm Peak aortic valve gradient: 32 mmHg Mean aortic valve gradient: 21 mmHg No aortic regurgitation LVOT velocity: 110 cm/sec LVOT VTI: 20.7 cm Mitral E velocity: 98.7 cm/sec Mitral A velocity: 124 cm/sec Very mild tricuspid regurgitation Estimated right ventricular systolic pressure 39 mmHg by pulmonary acceleration time method MITRAL ANNULAR TISSUE DOPPLER: E prime septal: 5.1 cm/sec E prime lateral: 5.5 cm/sec DESCRIPTION: The rhythm was sinus. This was a moderately technically difficult echocardiogram. No pericardial effusion. This was a 2-D, M-mode, color flow Doppler and pulse wave Doppler examination and included mitral annular tissue Doppler. CONCLUSIONS: 1. Mildly dilated left ventricle with mild mixed eccentric/concentric left ventricular hypertrophy. Visual appearance of moderate global LV hypokinesis with severe reduction in overall LV systolic function. LVEF 30% by visual estimate. Grade 1 LV diastolic dysfunction (impaired relaxation filling pattern). Suggestive of elevated mean left atrial pressure. 2. Degenerative, calcific aortic valve disease of a 3-cuspid aortic valve with mild aortic stenosis. No aortic regurgitation. 3. Moderate left atrial dilatation. 4. Suggestive of mild elevation of pulmonary artery systolic pessure. Inferior vena cava plethora suggestive of elevated central venous pressure of at least 20 mmHg.
[2017-03-01 15:18] VITALS: BP 136/65
[2017-03-01] MEDS ORDERED: ALBUTEROL SULFATE 2.5 MG/0.5 ML INH NEB SOLN NEB PRN (15:30)
[2017-03-01 16:00] VITALS: BP 138/65
[2017-03-01] MEDS ORDERED: VITAMIN D 1,000 INTERNATIONAL UNITS TABLET PO SCH (16:00)
[2017-03-01] MEDS ORDERED: CALCIUM CARBONATE 500 MG CHEW U/D PO SCH (16:00)
[2017-03-01] MEDS ORDERED: methylPREDNISolone INJ 125 MG/2 ML VIAL (J2930) IV SCH (16:00)
[2017-03-01] MEDS ORDERED: FUROSEMIDE 100 MG/10 ML VIAL (J1940) IV SCH ×2 (16:00→23:00)
--- NOTE | 2017-03-01 17:11 | HPEPDOC ---
General Date of Admission Mar 01, 2017 at 10:16 Chief Complaint The patient is a 62-year-old male Presented to the ER with complaints of difficulty breathing History of Present Illness Patient is a 62 year old male with a PMHx of HTN, Aortic stenosis, DLP , COPD (on 2 L O2), IDDM2, Schizophrenia and GERD who presented to the ER with complaints of difficulty breathing started last night. Patient was in his usual state of health and noted that yesterday he began to express shortness of breath. He denied any cough, denied any fevers, did note that he was experiencing some chills. Patient denies any lower extremity swelling. He does report that he experiences shortness of breath when he lays flat on his back, so he sleeps with at least one pillow/upright. He also notes frequent nighttime awakenings that have made it difficult for him to sleep at night. He denies any chest pain or palpitations. Denies any sweating or nausea and vomiting. He denies any history of heart attack or stroke in the past. Has not had any cardiac catheterization done in the past. Denies any dysuria or problems with producing urine. Patient does report some constipation. He denies any diarrhea or abdominal pain. Patient denies any change in weight, and notes that his appetite has been good. Home Medications Scheduled (Toulanie Solostar) 300 Unit/Ml Inj, 36 UNIT SC DAILY, (Reported) TAKES AT 0600 (Procrit) 20,000 Unit/Ml Inj, 20,000 UNIT SQ ASDIRECTED, (Reported) EVERY THURSDAY AT 0800 Amlodipine Besylate (Norvasc) 5 Mg Tab, 5 MG PO DAILY, (Reported) Atorvastatin Calcium (Atorvastatin Calcium) 40 Mg Tab, 40 MG PO QHS, (Reported) Calcitriol (Calcitriol) 0.25 Mcg Cap, 0.25 MCG PO ASDIRECTED, (Reported) MON/WED/FRI Calcium Carbonate (Calcium Carbonate) 500 Mg Chw, 1,000 MG PO TID, (Reported) Carvedilol (Carvedilol) 12.5 Mg Tab, 12.5 MG PO BID, (Reported) TAKES AT 0800 AND 1700 Cholecalciferol (Vitamin D) 1,000 Unit Tab, 2,000 UNIT PO TID, (Reported) TAKES AT 0800, 1100, 1700 Docusate Sodium (Colace) 100 Mg Cap, 100 MG PO BID, (Reported) Ferrous Sulfate (Ferrous Sulfate) 325 Mg Tab, 325 MG PO BID, (Reported) TAKES AT 0800 AND 1700 Insulin Human Lispro (Humalog) 1 Units/0.01 Ml Inj, 8 UNITS SC TID, (Reported) BEFORE MEALS Omeprazole (Omeprazole) 20 Mg Cap, 20 MG PO QPM, (Reported) Oxcarbazepine (Oxcarbazepine) 300 Mg Tab, 300 MG PO BID, (Reported) Paliperidone (Invega) 3 Mg Tab, 3 MG PO QPM, (Reported) TAKES AT 1700 Senna (Senna Lax) 8.6 Mg Tab, 1 TAB PO BID, (Reported) Tamsulosin Hydrochloride (Flomax) 0.4 Mg Cap, 0.8 MG PO DAILY, (Reported) Torsemide (Torsemide) 20 Mg Tab, 60 MG PO BID, (Reported) Venlafaxine Hydrochloride (Venlafaxine HCl) 75 Mg Tab, 150 MG PO DAILY, ( Reported) Scheduled PRN Acetaminophen (Acetaminophen) 325 Mg Tab, 650 MG PO Q4HP PRN for pain, (Reported ) Acetaminophen (Acephen) 650 Mg Sup, 650 MG HI Q4H PRN for PAIN OR FEVER, ( Reported) Albuterol Sulfate (Albuterol Sulfate) 2.5 Mg/3 Ml Nebu, 2.5 MG INH Q4HP PRN for SHORTNESS OF BREATH, (Reported) Bisacodyl (Dulcolax) 10 Mg Sup, 10 MG HI DAILY PRN for CONSTIPATION, (Reported) Glucagon Hydrochloride (Glucagon) 1 Mg Inj, 1 MG INJ ASDIRECTED PRN for LOW BLOOD SUGAR, (Reported) Milk Of Magnesia (Milk of Magnesia) 1,200 Mg/15 Ml Sulema, 30 ML PO DAILY PRN for CONSTIPATION, (Reported) Sodium Phosphate/Biphosphate (Enema 7-19 gm/118Ml) 1 Terri Terri, 1 TERRI HI DAILY PRN for CONSTIPATION, (Reported) Allergies Coded Allergies: No Known Allergies (Verified , 06/11/05) Past Medical History Medical History HTN, Aortic stenosis, DLP, COPD (on 2 L O2), IDDM2, Schizophrenia and GERD Surgical History No reported surgeries Family History Non-contributory given advanced age Social History - Denies the use of alcohol or illicit drugs; quit smoking many years ago, however, was a smoker for at least 40 years at [facility] - Denies recent travel or sick contacts - Lives at [facility] - Occupation; does not report any prior employment Review of Symptoms Other systems 10 point review of systems negative otherwise stated in HPI Vital Signs - Vitals: BP 114/58, HR 95, RR 20, Sat 96%BIPAP@60%, Temp 97.4F - General: Lying in bed, BIPAP, awake, drowsy - HEENT: NC, AT - CVS: RRR, +S1S2 - Lungs: Poor air entry bilaterally; difficult to auscultate lung lundy - Abdomen: Soft, Non-distended, Non-tender, Severely obese - Extremities: No lower extremity edema appreciated, No calf tenderness - Neuro: No focal motor or sensory deficit - Skin: No visible rashes Laboratory Data Labs 24H Laboratory Tests 2 03/01/17 08:09: Blood Gas Bicarbonate Standard 24.8, Arterial Blood pH 7.326L, Arterial Blood Partial Pressure CO2 52.6H, Arterial Blood Partial Pressure O2 98.9, Arterial Blood Total CO2 28.5, Arterial Blood HCO3 26.9H, Arterial Blood Base Excess 0.4 , Arterial Blood Oxygen Saturation 97.0 03/01/17 08:15: Immature Granulocyte % (Auto) 0.5H, White Blood Count 18.5H, Red Blood Count 2.95L, Hemoglobin 8.8L, Hematocrit 28.4L, Mean Corpuscular Volume 96.3H, Mean Corpuscular Hemoglobin 29.8, Mean Corpuscular Hemoglobin Concent 31.0L, Red Cell Distribution Width 17.8H, Platelet Count 208, Neutrophils (%) (Auto) 91.4H , Lymphocytes (%) (Auto) 1.3L, Monocytes (%) (Auto) 6.4H, Eosinophils (%) (Auto ) 0.2, Basophils (%) (Auto) 0.2, Neutrophils # (Auto) 16.9H, Lymphocytes # (Auto ) 0.2L, Monocytes # (Auto) 1.2H, Eosinophils # (Auto) 0.0, Basophils # (Auto) 0.0, Immature Granulocyte # (Auto) 0.1H, Nucleated Red Blood Cells % (auto) 0.0 , Anion Gap 7L, Glomerular Filtration Rate 13.3L, Lactic Acid Level 1.2, Blood Urea Nitrogen 77H, Creatinine 4.80H, Sodium Level 144, Potassium Level 4.7, Chloride Level 108H, Carbon Dioxide Level 29, Calcium Level 8.2L, Total Creatine Kinase 176, Aspartate Amino Transf (AST/SGOT) 19, Alanine Aminotransferase (ALT/SGPT) 26, Alkaline Phosphatase 82, Total Bilirubin 0.4, Direct Bilirubin 0.2, Creatine Kinase MB 5.6H, Creatine Kinase MB Relative Index 3.18, Troponin I 0.63H, [id number]-Lcj-[id number]-Type Natriuretic Peptide 45266K, Total Protein 6.4, Albumin 2.7L, Albumin/Globulin Ratio 0.73L, Thyroid Stimulating Hormone (TSH) 3.320 03/01/17 09:05: Blood Gas Bicarbonate Standard 22.8, Arterial Blood pH 7.267L, Arterial Blood Partial Pressure CO2 56.8H, Arterial Blood Partial Pressure O2 130.1H, Arterial Blood Total CO2 27.1, Arterial Blood HCO3 25.3, Arterial Blood Base Excess -2.0 , Arterial Blood Oxygen Saturation 98.4 03/01/17 11:23: Blood Gas Bicarbonate Standard 25.8, Arterial Blood pH 7.214*L, Arterial Blood Partial Pressure CO2 77.2*H, Arterial Blood Partial Pressure O2 92.2, Arterial Blood Total CO2 32.8H, Arterial Blood HCO3 30.5H, Arterial Blood Base Excess 1.5 , Arterial Blood Oxygen Saturation 95.6 03/01/17 12:50: Bedside Glucose (Misc Panel) 163H 03/01/17 13:38: Blood Gas Bicarbonate Standard 24.8, Arterial Blood pH 7.258L, Arterial Blood Partial Pressure CO2 64.8*H, Arterial Blood Partial Pressure O2 80.9, Arterial Blood Total CO2 30.3, Arterial Blood HCO3 28.3H, Arterial Blood Base Excess 0.4 , Arterial Blood Oxygen Saturation 94.5L 03/01/17 13:47: Total Creatine Kinase 183, Creatine Kinase MB 11.4H, Creatine Kinase MB Relative Index 6.22H, Troponin I 3.44#*H 03/01/17 17:02: Bedside Glucose (Misc Panel) 151H CBC/BMP Laboratory Tests 03/01/17 08:15 Red Blood Count 2.95 L, Mean Corpuscular Volume 96.3 H, Mean Corpuscular Hemoglobin 29.8, Mean Corpuscular Hemoglobin Concent 31.0 L, Red Cell Distribution Width 17.8 H, Neutrophils (%) (Auto) 91.4 H, Lymphocytes (%) (Auto ) 1.3 L, Monocytes (%) (Auto) 6.4 H, Eosinophils (%) (Auto) 0.2, Basophils (%) ( Auto) 0.2, Neutrophils # (Auto) 16.9 H, Lymphocytes # (Auto) 0.2 L, Monocytes # (Auto) 1.2 H, Eosinophils # (Auto) 0.0, Basophils # (Auto) 0.0, Calcium Level 8.2 L, Total Creatine Kinase 176 Microbiology Microbiology 03/01/17 Blood Culture, Received Pending 03/01/17 Blood Culture, Received Pending 03/01/17 Urine Culture, Received Pending Plan / VTE VTE Prophylaxis Ordered?: Yes Plan Plan Dyspnea - likely 2/2 fluid overload - possibly 2/2 severe systolic and diastolic congestive heart failure, possibly worsening of CKD5, possibly 2/2 acute COPD exacerbation - Presented to the ER with complaints of shortness of breath that occurred yesterday evening - Physical with diminished air entry bilaterally - Labs revealed significantly elevated BNP - Chest x-ray 03/01: Reveals evidence of fluid overload; possible multifocal pneumonia - s/p Furosemide 80 mg IV and Solumedrol 125mg IV in the ER - Echocardiogram ordered and completed in ER - We will continue with strict ins and outs, daily weights, and head of bed elevation at 30 - Will continue with furosemide 80 mg IV q8h to maintain negative fluid balance - Will continue with Solumedrol 60 mg IV q8h - At this point will continue with BiPAP support - Case discussed with Dr. Marino and Dr. Duron, both will be on consultation Elevated Troponin - possibly 2/2 demand ischemia; possibly associated with CAD - Patient denies any chest pain, palpitations, diaphoresis or nausea - EKG reviewed from this morning, no ischemic changes noted, similar to EKG done March 2016 - Will continue to trend troponins - c/w Atorvastatin and Carvedilol - c/w ASA 81; Will give dose of 300 HI today - Case discussed with Dr. Rodas; will be on consultation COPD (on 2 L O2) - Possible acute COPD exacerbation - ABG with evidence of pCO2 retention and acidosis - c/w Solu-Medrol - c/w BiPAP noninvasive ventilation - c/w Duoneb Macrocytic anemia - Hg baseline from 03/2016 of 8.0 - Hg appears to be at baseline Leukocytosis - Elevated at 18 - Clinical history does not match with pneumonia - No febrile episodes noted - No lactic acidosis - Will hold on antibiotics at this point HTN - BP well controlled - c/w Amlodipine and Carvedilol withholding parameters Aortic stenosis - Based on echocardiogram from 03/2016 DLP - c/w Simvastatin IDDM2 - c/w ISS Schizophrenia - c/w Oxcarbazepine / Paliperidone / Venlafaxine GERD - c/w Omeprazole DVT prophylaxis - Will start Heparin Disposition Disposition: - Patient has a poor prognosis; given advanced renal failure, advanced heart failure, advanced pulmonary disease - Currently DNR/DNI - I have contacted the patient's healthcare proxy and informed them of the current status of the patient; they have advised me to continue what is possible given his current MOLST form requests PEDRO LUIS VELASQUEZ MD Mar 01, 2017 17:11
[2017-03-01 17:12] LABS: ABG BASE EXCESS 1.7 (-2.0-2.0); ABG HCO3 29.8 MEQ/L (22.0-26.0); ABG PARTIAL PRESSURE O2 72.9 mmHg (75.0-100.0); ABG STANDARD HCO3 25.9 MEQ/L (22.0-26.0); ABG TOTAL CO2 31.9 MEQ/L (23.0-31.0); ABG pH (ARTERIAL) 7.256 UNITS (7.350-7.450)
[2017-03-01 17:24] LABS: ABG PARTIAL PRESSURE CO2 68.5 mmHg (35.0-45.0)
[2017-03-01] MEDS ORDERED: MORPHINE 2 MG/ML 1ML SYRINGE IV PRN (17:45)
[2017-03-01] MEDS ORDERED: LORazepam 2 MG/ML VIAL (J2060) IV PRN (17:45)
[2017-03-01] MEDS ORDERED: ASPIRIN 300 MG SUPP PR ONE (18:00)
--- NOTE | 2017-03-01 18:10 | CR ---
DATE OF CONSULTATION: 03/01/2017 REQUESTING PHYSICIAN: Barbara Thompson MD. This Dr. Doyle REASON FOR CONSULTATION: Acute renal failure, chronic kidney disease and shortness of breath. HISTORY OF PRESENT ILLNESS: Mr. Valadez is a 62-year-old gentleman who is morbidly obese and has multiple chronic medical problems including history of depression, advanced chronic kidney disease, type 2 diabetes, hypertension, hyperlipidemia and congestive heart failure. He was brought to emergency room today due to difficulty breathing. The patient is now on bilevel positive airway pressure (BiPAP) and he is unable to talk. I was asked to see him because of his worsening renal function and respiratory status. The patient was seen in the emergency room. PAST MEDICAL AND SURGICAL HISTORY: Significant for: 1. Longstanding history of type 2 diabetes. 2. Morbid obesity. 3. Hypertension. 4. Systolic and diastolic congestive heart failure. 5. History of hyperlipidemia. 6. History of chronic obstructive pulmonary disease (COPD). 7. History of schizophrenia. 8. History of gastroesophageal reflux disease. 9. Anemia of chronic kidney disease. 10. He also has history of secondary hyperparathyroidism. MEDICATIONS: Current medications in the [facility] included: - Toujeo 300 units per mL, 36 units daily - Procrit 20,000 units once a week - amlodipine 5 mg daily - atorvastatin 40 mg daily - calcitriol 0.25 mcg daily - calcium carbonate 500 mg twice a day - carvedilol 12.5 mg twice a day - vitamin D 1000 units daily - Colace 100 mg twice a day - ferrous sulfate 325 mg twice a day - Humalog insulin 8 units three times a day with meals - omeprazole 20 mg daily - oxcarbazepine 300 mg at twice a day - Invega 3 mg every evening - Senokot 8.6 mg twice a day - Flomax 0.4 mg two capsules daily - torsemide 60 mg twice a day - Effexor XR 75 mg two capsules daily ALLERGIES: The patient has no known drug allergies. PERSONAL AND SOCIAL HISTORY: The patient is currently a [facility] resident. There is no history of alcohol use and he quit smoking many years ago. FAMILY HISTORY: Negative for end-stage renal disease. REVIEW OF SYSTEMS: According to his history and physical, there was no history of fever known. At present the patient is unable to provide any information as he is on the BiPAP. He was seen recently in our office and has known history of chronic shortness of breath due to COPD and morbid obesity. Head and neck is negative for any nosebleeds or sore throat. Cardiovascular system is as per history of present illness. He has been quite short of breath chronically and has been on home oxygen. Echocardiogram done today showed combined systolic and diastolic dysfunction with aortic stenosis. Respiratory system is significant for COPD and obstructive sleep apnea. Musculoskeletal system is significant for super morbid obesity with hypoventilation. Endocrine system is significant for secondary hyperparathyroidism and diabetes. Psychosocial system significant for depression and schizophrenic disorder. Skin is negative for rash or ulcers. Neurological system is negative for seizures. Hematological system is significant for anemia of chronic kidney disease. Recently Procrit therapy has been initiated. PHYSICAL EXAMINATION: Morbidly obese gentleman in the stretcher using BiPAP. Temperature 97.4 degrees Fahrenheit, heart rate 86 per minute and respiratory rate 30 per minute. Blood pressure 136/75 mmHg and oxygen saturation 94% on 40% oxygen. Head is atraumatic. BiPAP mask is being used. Neck veins are difficult to be assessed due to morbid obesity and short neck. Pupils are equal and reactive to light. Sclerae are anicteric and oral mucosa is dry. Heart exam reveals distant S1, S2. Lungs have moderate bilateral air entry. Hard to hear any rales or wheezing. Abdomen is morbidly obese and bowel sounds are present. Extremities have no cyanosis or clubbing. Skin is dry and without any rash or ulcers. Neurological system is negative for any seizures or asterixis. LABORATORY DATA: WBC count 18.5, hemoglobin 8.8 and hematocrit 28.4. Initial blood gas showed a pH of 7.32, pCO2 52.6 and pO2 98.9. Most recent blood gas showed a pH of 7.25, pCO2 64.8 and pO2 80.9. Oxygen saturation 94.5%. Sodium 144 and potassium 4.7. BUN 77 and creatinine 4.8. Glucose 149 and lactic acid 1.2. Calcium 8.2. Initial troponin was 0.63 and a repeat troponin is now 3.44. Initial CPK was 176 and a repeat CPK 183. Pro-BNP is 23,120. IMAGING: Renal ultrasound showed bilateral small kidneys with right kidney 7.6 cm and left kidney 8.5 cm in size. No hydronephrosis. Chest x-ray showed cardiomegaly and pulmonary edema. Echocardiogram done today showed a mildly dilated left ventricle, ejection fraction 30%, and grade 1 diastolic dysfunction. Mild aortic stenosis and moderate left atrial dilatation. Inferior vena cava plethora was present suggestive of elevated central venous pressure of at least 20 mm. PROBLEMS: 1. Acute on chronic combined congestive heart failure. The patient is very difficult to assess his volume clinically due to morbid obesity. He does not have any peripheral edema and neck veins are difficult to be assessed due to obese neck and morbid obesity. Auscultation is also quite difficult due to body habitus. In any event, considering the appearance of chest x-ray and echocardiogram, he seems to be volume overloaded. We will try to diurese him and give him Lasix 100 mg every six hours and try to achieve a negative fluid balance of at least a couple of liters per day. He already has a Borrero catheter in place. The patient should be kept on 1500 mL fluid restriction per day. 2. Acute renal failure superimposed on chronic kidney disease. The patient has small kidneys on the ultrasound without any hydronephrosis. He has significant chronic kidney disease at baseline. Preparations for dialysis have been in progress and he has already been referred to vascular surgery for arteriovenous (AV) fistula creation. It seems that now we will have to start dialysis sooner than initially planned. A vascular surgery consultation is being requested for Perma-Cath placement and the patient will be dialyzed as soon as Perma-Cath is available for use. 3. Elevated troponin. I am concerned about cardiac event as his troponin has increased significantly. I am concerned that his decompensation may be related to a cardiac problem. I would recommend to check further creatine phosphokinase (CPK) and troponin in six hours. We will not consider urgent dialysis due to risk of destabilizing his cardiac problems if he has any ischemic event. 4. Anemia. The patient has known history of anemia of chronic kidney disease. Procrit therapy has been started recently. There is no emergent need for transfusion at this point and we will monitor closely. 5. Respiratory failure. Most likely this is due to a combination of COPD, obstructive sleep apnea, combined congestive heart failure and possible coronary event which is acute. BiPAP is currently being used and will try to diurese him aggressively in order to improve his volume status. I thank you for involving me in the care of Mr. Valadez. I will follow him along with you.
[2017-03-01] MEDS ORDERED: methylPREDNISolone INJ 40 MG/1 ML VIAL (J2920) IV SCH (20:00)
[2017-03-01] MEDS ORDERED: HumaLOG INSULIN (NovoLOG) PER UNIT SC SCH (21:00)
[2017-03-01] MEDS ORDERED: OMEPRAZOLE 20 MG CAP PO SCH (21:00)
[2017-03-01] MEDS ORDERED: ATORVASTATIN 20 MG TAB PO SCH (21:00)
[2017-03-01] MEDS ORDERED: PALIPERIDONE 3 MG ER TAB (INVEGA) PO SCH (21:00)
--- NOTE | 2017-03-01 21:57 | CCN ---
DATE: 03/01/2016 NOTE: Asked by Dr. Thompson to emergently evaluate Mr. Valadez for acute hypercapnic and hypoxemic respiratory failure leading to noninvasive mechanical ventilation. Mr. Valadez is a 62-year-old white male with a past medical history significant for congestive heart failure (CHF), schizophrenia, morbid obesity, chronic kidney disease, dyslipidemia, chronic obstructive pulmonary disease (COPD) per chart (do not know spirometric volumes), gastroesophageal reflux disease (GERD), and hypertension, who was brought to the emergency department from [facility] by the resident staff with the report of respiratory distress. When I saw Mr. Valadez, he had a full-face mask in place and looked comfortable, but could not or would not offer any further history as to the sequence of events or the time period of events. He appeared to indicate that he was getting enough air and not having any pain. When he arrived in the emergency department, it was thought that this was difficulties were secondary to congestive heart failure (CHF). He had been transported on continuous positive airway pressure (CPAP) by the ambulance crew, and his first arterial blood gas was reasonable. He had been placed on CPAP in the emergency department and that blood gas showed worsened pH, though the pCO2 between the two was not markedly different. He was then changed to noninvasive mechanical ventilator and about an hour later, his arterial blood gas had worsened and this time included a change in his respiratory acidosis. I then became involved. ALLERGIES: No known drug allergies. MEDICATIONS ON ADMISSION: - acetaminophen 650 mg by mouth every four hours as needed - albuterol nebulization 2.5 mg every four hours as needed - Norvasc 5 mg by mouth daily - atorvastatin 40 mg by mouth at bedtime - bisacodyl 10 mg per rectum daily - calcitriol 0.25 mcg by mouth every Thursday, Thursday, Thursday - calcium carbonate 1000 mg by mouth three times a day - carvedilol 12.5 mg by mouth twice a day - vitamin D 2000 units by mouth three times a day - Colace 100 mg by mouth twice a day - ferrous sulfate 325 mg by mouth twice a day - insulin Humalog 8 units subcutaneous three times a day before meals - milk of magnesia 30 mL by mouth as needed for constipation - omeprazole 20 mg by mouth every evening - oxcarbazepine 300 mg by mouth twice a day - Invega 3 mg by mouth every evening - Procrit 2000 units subcutaneous every Thursday - senna one tablet by mouth twice a day - Flomax 0.8 mg by mouth daily - torsemide 60 mg by mouth twice a day - Toujeo 36 units subcutaneous daily - venlafaxine 150 mg by mouth daily There are several other medications listed on the intake that reportedly the patient states he is not taking, which included hypertension medications and aspirin. PHYSICAL EXAMINATION: GENERAL: Mr. Valadez is lying in bed with a full face mask in place in no acute distress. He is alert and appears to answer by nodding to some questions, though it is not clear it is appropriate. VITAL SIGNS: Temperature 97.4, pulse 86, respiratory rate 30, blood pressure 136/75 with a mean arterial pressure (MAP) of 95, SpO2 92% on NIMV at 14/8 with an FiO2 of 0.4. HEENT: Anicteric, nares and oropharynx not examined secondary to full face mask in place. NECK: Supple, unable to assess jugular venous pressure (JVP) secondary to body habitus. Trachea is midline. LYMPHATICS: Without cervical or supraclavicular lymphadenopathy. CHEST: Normal shaped lungs, symmetric excursion, good air entry, bilateral fine crackles, no wheeze or rhonchi. Normal I:E. No accessory muscle usage or retractions. CARDIOVASCULAR: Regular rate and rhythm with a normal S1, S2, no murmur, rub, or gallop appreciated. ABDOMEN: Normoactive bowel sounds, soft, nondistended, nontender, no hepatosplenomegaly or masses appreciated on difficult examination secondary to body habitus. EXTREMITIES: Trace pretibial edema bilaterally, without clubbing or cyanosis, palpable pedal pulses bilaterally. LABORATORY DATA: Chemistry shows sodium 144, potassium 4.7, chloride 108, bicarbonate 29, anion gap 7, BUN 77, creatinine 4.8, glucose 149, calcium 8.2, CK 176, CK-MB 5.6, troponin I is 0.63, lactic acid 1.2, total bilirubin 0.4, direct bilirubin 0.2, AST 19, ALT 26, alkaline phosphatase 82, BNP 23,120, total protein 6.4, albumin 2.7, TSH 3.32. CBC showed a hemoglobin of 8.8, hematocrit 28.4, platelet count 208,000, white blood cell count 18,500 with a differential of 91% neutrophils, 1% lymphocytes, and 6% monocytes. Arterial blood gas initially upon arrival in the ambulance on continuous positive airway pressure (CPAP) was 7.33/53/99 with a measured saturation of 97% and a base excess of 0.4. I do not know the CPAP pressure or FiO2. Repeat ABG on CPAP in the emergency department was 7.27/57/130, 98% saturation with a base excess of -2.0. Again, I do not know the CPAP pressure or FiO2. Arterial blood gas after being on NIMV at 17/11 with an unknown oxygen bleed in was 7.21/77/92 with a measured saturation of 96%. He was then given a rate of 20 on the NIMV and his repeat arterial blood gas was 7.26/65/81 with a measured saturation of 95% and a base excess of +0.4, this was on an FiO2 of 0.4. I reviewed his chest x-ray as well as the report from earlier today. That x-ray showed an enlarged cardiac silhouette even on a portable film with normal appearing mediastinal region. There are bilateral alveolar infiltrates consistent with pulmonary edema. Echocardiogram from earlier today showed mildly dilated left ventricle with mild mixed hypertrophy, ejection fraction (EF) 30%, grade 1 left ventricular (LV) diastolic dysfunction, moderate left atrial dilatation, suggestion of mild elevation of pulmonary artery systolic pressure. IMPRESSION: 1. Acute respiratory hypercapnic and hypoxemic failure secondary to congestive heart failure (CHF) leading to noninvasive mechanical ventilation (NIMV). 2. Left ventricular (LV) dysfunction with an ejection fraction (EF) of 30%. 3. Morbid obesity. 4. Possible obstructive sleep apnea at baseline. 5. Chronic obstructive pulmonary disease (COPD) per chart (do not know spirometric values). Regardless, if he does have chronic obstructive pulmonary disease (COPD), no evidence to suggest an exacerbation. 6. Chronic kidney disease stage IV. 7. Hypertension. 8. Schizophrenia. RECOMMENDATIONS: 1. Recommend continuation with NIMV on the current settings, although we could decrease the rate. 2. I suspect that the elevated CO2 is not of respiratory origin, but rather perfusional in nature. 3. Agree with diuresis. 4. Would discontinue Solu-Medrol, as again there is no evidence of a chronic obstructive pulmonary disease (COPD) exacerbation if he even has that entity. 5. I feel it is reasonable to continue bronchodilators on an as needed basis. 6. Agree with renal consultation. 7. I do not feel there is any indication for antibiotics at this time. I suspect the elevated white count (WC) count was secondary to stress. Will defer this decision to the hospitalist. Critical care time: 40 minutes, not including procedure time. CHUY
--- NOTE | 2017-03-02 06:43 | ECGEPIP ---
Stationary ECG Study 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
[2017-03-02] MEDS ORDERED: CALCITRIOL 0.25 MCG CAP (S0169) PO SCH ×2 (09:00)
[2017-03-02] MEDS ORDERED: ASPIRIN 81 MG ENTERIC TAB PO SCH (09:00)
[2017-03-02] MEDS: VENLAFAXINE **XR** 75MG CAPSULE PO SCH (09:00)
[2017-03-02] MEDS ORDERED: VENLAFAXINE 37.5 MG TAB PO SCH (09:00)
--- NOTE | 2017-03-02 09:02 | ECGEPIP ---
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
[2017-03-02] MEDS ORDERED: LORazepam 2 MG/ML VIAL (J2060) IV PRN (10:30)
[2017-03-02] MEDS ORDERED: IPRATROPIUM 0.5MG/ALBUTEROL 2.5MG INH SOL UD 3ML (DUONEB)(J7620) NEB PRN (10:30)
[2017-03-02] MEDS ORDERED: ASPIRIN 300 MG SUPP PR ONE (11:00)
[2017-03-02] MEDS ORDERED: methylPREDNISolone INJ 40 MG/1 ML VIAL (J2920) IV SCH (11:00)
[2017-03-02 11:07] LABS: BASO % 0.2 % (0.0-1.0); EOS % 0.1 % (0.0-3.0); IMMATURE GRANULOCYTE % 0.7 % (0-0); LYMPH # 0.7 10^3/uL (1.5-4.5); LYMPH % 4.8 % (24.0-44.0); MEAN CORPUSCULAR HEMOGLOBIN 30.4 pg (27.0-33.0); MEAN CORPUSCULAR HGB CONC 30.8 g/dl (32.0-36.5); MEAN CORPUSCULAR VOLUME 98.4 fl (80.0-96.0); MONO # 0.7 10^3/uL (0.0-0.8); MONO % 4.9 % (0.0-5.0); NEUTROPHILS # 12.6 10^3/uL (1.8-7.7); NEUTROPHILS % 89.3 % (36.0-66.0); PLATELET COUNT, AUTOMATED 164 10^3/uL (150-450); WHITE BLOOD COUNT 14.1 10^3/uL (4.0-10.0)
--- NOTE | 2017-03-02 11:16 | REP ---
PORTABLE CHEST X-RAY: Single view. HISTORY: Evaluate for fluid overload. COMPARISON: Chest x-ray March 01, 2017. FINDINGS: Upright AP portable chest x-ray shows mild cardiac enlargement unchanged. Pulmonary vasculature is cephalized but less indistinct than on the study done the previous day. There is still some diffuse peribronchial thickening. Hazy alveolar opacity is seen in the bases left more so than right. Lung opacity is improved from yesterday's radiograph. IMPRESSION: Improved pulmonary edema vascular congestion pattern. Signed by Scott Huynh MD 03/02/2017 01:02 P
[2017-03-02] MEDS ORDERED: VENL150C43 PO (11:20)
[2017-03-02] MEDS ORDERED: VENLAFAXINE **XR** 75MG CAPSULE PO SCH (11:20)
[2017-03-02 11:26] LABS: ALBUMIN 2.5 GM/DL (3.2-5.2); ALBUMIN/GLOBULIN RATIO 0.74 (1.00-1.93); BILIRUBIN,TOTAL 0.3 MG/DL (0.2-1.0); CALCIUM LEVEL 7.9 MG/DL (8.8-10.2); CREATININE FOR GFR 5.31 MG/DL (0.70-1.30); GLOMERULAR FILTRATION RATE 11.8 (>49); MAGNESIUM LEVEL 2.4 MG/DL (1.8-2.4); PHOSPHORUS LEVEL 6.2 MG/DL (2.5-4.9); TOTAL PROTEIN 5.9 GM/DL (6.4-8.2)
[2017-03-02 11:28] LABS: ADD MORPHOLOGY? YES; PLT CLUMPS? POS FLAG; POS COUNT POS FLAG
[2017-03-02 11:29] LABS: ANISOCYTOSIS 1+; POIKILOCYTOSIS 1+
--- NOTE | 2017-03-02 11:41 | IPN ---
DATE: 03/02/2017 Mr. Valadez was admitted yesterday with shortness of breath and he required BiPap. He was difficult to communicate at that time as he was not very responsive, and I could not talk to him. Hospitalist service did talk to his healthcare proxy, and the patient was made comfort measures only. This morning the patient is awake and alert and able to talk. I have discussed with him about plan of care and he certainly wishes to continue with acute care. The patient does not want to be comfort measures at all. His dyspnea has improved and he remains on oxygen via nasal cannula. He is currently not on BiPap. He was able to eat this morning and tolerate it well. He denies any fever or chills. PHYSICAL EXAMINATION: Temperature is 97.8 degrees Fahrenheit, heart rate 76 per minute and respiratory rate 26 per minute. Blood pressure 138/65 mmHg and oxygen saturation 94%. Head is atraumatic. Ears, nose and throat are unremarkable. Neck veins are difficult to be assessed. Pupils equal and reactive to light and sclera is anicteric. Heart sounds are distant but regular. Lungs have diminished breath sounds bilaterally. Abdomen is obese and nontender. Bowel sounds are present. Extremities have no cyanosis or clubbing. Skin is dry and without any rash or ulcers. Neurologically, he is awake, alert and at his baseline mentation without a focal neurological deficit. PROBLEMS: 1. Respiratory insufficiency. The patient was probably somewhat volume overloaded. However, he has significant underlying chronic lung issues with chronic obstructive pulmonary disease (COPD), obstructive sleep apnea and morbid obesity. This morning, he seems reasonably compensated and at about his baseline. We have diuresed him yesterday and will continue to diurese with intravenous Lasix 100 mg every 6 hours. I have discussed this with Dr. Thompson, who is providing the hospitalist care. 2. Acute on chronic renal failure. For practical purposes, the patient has end-stage renal disease and a plan for starting dialysis was already in the works as an outpatient. We wanted to get an AV fistula to start dialysis. However, for emergency, now he will need to have a Perma-Cath placed and start dialysis as soon as possible. AV fistula will be created later on as an outpatient. 3. COPD. The patient seems to be doing better and I suggest to continue with his current medical therapy. 4. Anemia. He does have chronic anemia and there is no emergent indication for transfusion at this point. Once his volume status is optimized and he starts dialysis then we will start Aranesp. 5. Depression and schizophrenia. I suggest to continue with his chronic medical therapy. 6. Elevated troponin. Yesterday the patient had elevated troponin of 3.44. His labs are being repeated by hospitalist service. Depending upon his troponin level, a decision can be made if the patient will need to be transferred to progressive care unit (PCU) or he can stay on the regular medical floor.
[2017-03-02] MEDS: CARVedilol 12.5 MG TAB PO SCH ×2 (11:56→21:00)
[2017-03-02] MEDS: CALCIUM CARBONATE 500 MG CHEW U/D PO SCH ×3 (11:56→21:00)
[2017-03-02] MEDS: FERROUS SULFATE 325MG TAB PO SCH ×2 (11:57→21:00)
[2017-03-02] MEDS: OMEPRAZOLE 20 MG CAP PO SCH (11:57)
[2017-03-02] MEDS: TAMSULOSIN 0.4 MG CAP PO SCH (11:57)
[2017-03-02] MEDS: ATORVASTATIN 20 MG TAB PO SCH (11:57)
[2017-03-02] MEDS: OXcarbazepine 300 MG TAB PO SCH ×2 (11:57→21:00)
[2017-03-02] MEDS: FUROSEMIDE 100 MG/10 ML VIAL (J1940) IV SCH ×2 (11:58→17:27)
[2017-03-02] MEDS ORDERED: ALBUTEROL SULFATE 2.5 MG/0.5 ML INH NEB SOLN NEB PRN (12:00)
[2017-03-02] MEDS ORDERED: ASPIRIN 325 MG TAB PO ONE (13:00)
--- NOTE | 2017-03-02 13:32 | IPNPDOC ---
Text Note Date of Service The patient was seen on 03/02/17. NOTE Subjective: Patient is a 62 year old male with a PMHx of HTN, Aortic stenosis, DLP , COPD (on 2 L O2), IDDM2, Schizophrenia and GERD who presented to the ER with complaints of difficulty breathing started last night. He noted orthopnea and PND, he was admitted for acute CHF exacerbation and possible COPD exacerbation. Patient was noted to have a mild elevation in his troponin Upon arrival to ER. She denied any chest pain, nausea, vomiting or diaphoresis at that time. His troponin began to elevate the hospital course. EKG did not reveal any ischemic type changes and his symptoms associated with cardiac etiology remain negative. On 03/01, evening patient's mental status was becoming very lethargic, he was unable to answer questions. Case was discussed with patient's healthcare proxy, and decision was made to make the patient comfort measures only. Patient's medications were discontinued. He was removed off BiPAP support and transferred to medical surgical floor. Patient was seen and examined at the bedside. Today, the patient appeared to have a better mental status was alert and oriented 3. He wanted to pursue medical management. His [employer] order sets were reversed and medications were reinstituted. Start lab work was acquired and patient was transferred to PCU. Objective: Vitals (See below) General: Lying in bed, no acute distress, comfortable, AAOx3 HEENT: NC, AT CVS: RRR, +S1S2 Lungs: Decreased breath sounds bilaterally, difficult to auscultate lung lundy given morbid obesity Abdomen: Soft, ND, NT, morbid obesity Extremities: - Edema, - Calf tenderness Assessment and plan: Dyspnea - likely 2/2 fluid overload - possibly 2/2 severe systolic and diastolic congestive heart failure, possibly worsening of CKD5, unlikely 2/2 acute COPD exacerbation - Presented to the ER with SOB and signs of fluid overload; requiring BIPAP support - Physical again with diminished air entry bilaterally - BNP significantly elevated - Chest x-ray 03/01: Reveals evidence of fluid overload; possible multifocal pneumonia - s/p Furosemide 80 mg IV and Solumedrol 125mg IV in the ER - ECHO 03/01: EF 30%; Diastolic Dysfunction G1; mild elevated pulmonary artery systolic pressure, elevated CVP at 20 mmHg - c/w strict ins and outs, daily weights, and head of bed elevation at 30 - c/w Furosemide 100 mg IV q8h - s/p BIPAP - Case discussed with Dr. Marino and Dr. Gama - Plan for dialysis establishment with Dr. Villagomez to place Shiley catheter Elevated Troponin - possibly 2/2 demand ischemia; possibly associated with CAD - Patient denies any chest pain, palpitations, diaphoresis or nausea - EKG reviewed from this morning, no ischemic changes noted, similar to EKG done March 2016 - Serial EKGs noted; no new changes this morning - Troponin trending upward; markedly elevated - c/w Atorvastatin and Carvedilol; ASA 81 daily - Case discussed with Dr. Rodas; will be on consultation Macrocytic anemia - Hg baseline from 03/2016 of 8.0 - Hg appears to be at baseline Leukocytosis - possibly reactive - Has been trending down - Clinical history does not match with pneumonia - No febrile episodes noted - No lactic acidosis - No antibiotics at this time HTN - BP well controlled - c/w Amlodipine and Carvedilol withholding parameters Aortic stenosis - Based on echocardiogram from 03/2016 DLP - c/w Simvastatin IDDM2 - c/w ISS Schizophrenia - c/w Oxcarbazepine / Paliperidone / Venlafaxine GERD - c/w Omeprazole DVT prophylaxis - c/w Heparin Disposition: - Patient has a poor prognosis; given advanced renal failure, advanced heart failure, advanced pulmonary disease - Currently DNR/DNI VS,Fishbone, I+O VS, Fishbone, I+O Laboratory Tests 03/02/17 10:51 Red Blood Count 2.57 L, Mean Corpuscular Volume 98.4 H, Mean Corpuscular Hemoglobin 30.4, Mean Corpuscular Hemoglobin Concent 30.8 L, Red Cell Distribution Width 18.0 H, Neutrophils (%) (Auto) 89.3 H, Lymphocytes (%) (Auto ) 4.8 L, Monocytes (%) (Auto) 4.9, Eosinophils (%) (Auto) 0.1, Basophils (%) ( Auto) 0.2, Neutrophils # (Auto) 12.6 H, Lymphocytes # (Auto) 0.7 L, Monocytes # (Auto) 0.7, Eosinophils # (Auto) 0.0, Basophils # (Auto) 0.0, Calcium Level 7.9 L, Phosphorus Level 6.2 H, Aspartate Amino Transf (AST/SGOT) 25, Alanine Aminotransferase (ALT/SGPT) 22, Total Creatine Kinase 383 #H, Alkaline Phosphatase 57, Total Bilirubin 0.3, Total Protein 5.9 L, Albumin 2.5 L Vital Signs Date Time Temp Pulse Resp B/P (MAP) Pulse Ox O2 Delivery O2 Flow Rate FiO2 03/02/17 11:56 78 139/83 03/02/17 11:04 Nasal Cannula 3.0 03/01/17 16:00 97.8 26 94 40 I&O- Last 24 Hours up to 6 AM 03/03/17 06:00 Intake Total 240 ml Output Total 0 ml Balance 240 ml PEDRO LUIS VELASQUEZ MD Mar 02, 2017 13:32
[2017-03-02] MEDS ORDERED: IPRATROPIUM 0.5MG/ALBUTEROL 2.5MG INH SOL UD 3ML (DUONEB)(J7620) NEB SCH (14:00)
[2017-03-02] MEDS ORDERED: HEPARIN 1,000 UNITS/ML 10ML VIAL (FOR RADIOLOGY& DIALYSIS ONLY) As Ordered ONE (14:10)
[2017-03-02] MEDS ORDERED: LIDOCAINE 2% MDV 20 ML VIAL As Ordered ONE (14:11)
--- NOTE | 2017-03-02 14:28 | ECGEPIP ---
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
[2017-03-02 15:37] VITALS: BP 116/57
[2017-03-02 16:00] LABS: ABG BASE EXCESS 2.2 (-2.0-2.0); ABG HCO3 29.3 MEQ/L (22.0-26.0); ABG STANDARD HCO3 26.2 MEQ/L (22.0-26.0); ABG TOTAL CO2 31.1 MEQ/L (23.0-31.0); ABG pH (ARTERIAL) 7.299 UNITS (7.350-7.450)
[2017-03-02 16:01] LABS: ABG PARTIAL PRESSURE O2 43.6 mmHg (75.0-100.0)
--- NOTE | 2017-03-02 16:32 | REPIR ---
DATE OF PROCEDURE: 03/02/2017 PREPROCEDURE DIAGNOSES: Hypoxia, congestive heart failure, fluid overload, chronic renal insufficiency, acute renal failure, superimposed on chronic kidney disease. POSTPROCEDURE DIAGNOSIS: PROCEDURE: Ultrasound guidance per vascular access, fluoroscopic guidance for central venous assess device placement, centrally inserted central venous tunneled catheter with placement of a 19 cm tip to cuff EvenMore PermaCath. SURGEON: Dr. Charline Villagomez STATEMENT DISTRIBUTION CLERK: Sandra Edwards and Rosemary Sawyer. ANESTHESIA: Local with 10 mL of 2% lidocaine. ESTIMATED BLOOD LOSS: Minimal. IV FLUID: 50 mL. COMPLICATION: None. DRAINS: None. SPECIMENS: None. IMPLANTS: Right internal jugular vein tunnel central venous catheter with a 19 cm tip to cuff EvenMore PermaCath. INDICATION: Patient is a 62-year-old male who presented with acute on chronic renal failure and fluid overload with hypoxia who requires dialysis. Patient is unresponsive and unable to give consent and consent was obtained from his health care proxy Inder Briones. Benefits included but were not limited to access for dialysis with resolution of fluid overload and continued access for dialysis for end stage renal disease. Alternative treatment options included but were not limited no intervention. Risks included but where not limited to infection, bleeding, pneumothorax, hemothorax, possible need for open surgical intervention. Cerebrovascular accident, myocardial infarction, pulmonary embolus, DVT, loss of limb, loss of life, and poor outcome. Mr. Briones's questions were answered. Mr. Briones voices understanding of these risks, benefits, and alternative treatment options and give permission to proceed with a PermaCath placement on Pradeep Valadez. PROCEDURE: The patient was taken to the angiography suite and placed supine on the angiography room table and then prepped and draped in a standard surgical fashion. A time out was then completed confirming the correct patient, procedure, and laterality. The ultrasound was used to evaluate the right internal jugular vein which was noted to be easily compressible, widely patent and free of thrombus. Ultrasound was then used to guide cannulation of the right internal jugular vein with real-time concurrent imaging of the entry of the needle into the right internal jugular vein with a hard copy image preserved. The micropuncture wire was advanced through the micropuncture needle which was upsized to a micropuncture sheath. A Amplatz wire was advanced through the micropuncture sheath. The catheter was tunneled through a puncture wound in the right chest and brought out through a puncture wound at the right internal jugular vein entry site after the overlying skin had been anesthetized with 2% lidocaine. The right internal jugular vein was then sequentially dilated under fluoroscopic guidance. An introducer sheath was positioned and the catheter was advanced through the introducer sheath and positioned with the tip in the superior vena cava right atrial junction. Both ports of the catheter were aspirated and were noted to aspirate easy and flushed with heparinized saline. The catheter was secured to the right anterior chest wall using 2-0 Prolene suture after anesthetizing the overlying skin with 2% Lidocaine, the puncture wound in the right neck was closed using a 4-0 Monocryl suture inverted interrupted fashion. Dressings were applied. Patient tolerated the procedure well. All instruments, sponge and needle counts were correct at the end of the case. There were no complications. Dr. Villagomez was present for and directed the entire case. Patient was transferred to the ICU in stable condition. The right internal jugular vein PermaCath is stable for use for dialysis access. RADIOLOGIC SUPERVISION INTERPRETATION: The initial ultrasound was used to evaluate the right internal jugular vein which was easily compressible, widely patent, and free of thrombus. Ultrasound was used to guide cannulation with real-time concurrent imaging of the entry of the needle into the right internal jugular with a hard copy image preserved. The right internal jugular vein was then sequentially dialted under fluoroscopic guidance and an introducer sheath positioned. The catheter advanced through the introducer sheath and positioned with the tip in the superior vena cava right atrial junction. Final fluoroscopic image showed the catheter in good position and with good alignment with the tip in the superior vena cava right atrial junction with no pneumo or hemothorax noted. The PermaCath is stable for use for dialysis access.
[2017-03-02] MEDS: ISOSORBIDE MONONITRATE 10MG TABLET PO SCH (17:00)
[2017-03-02 17:27] VITALS: BP 124/59
[2017-03-02] MEDS: ACETAMINOPHEN 650 MG SUPP PR PRN (17:29)
[2017-03-02 20:00] VITALS: BP 122/58
[2017-03-02 20:39] LABS: ABG BASE EXCESS 2.8 (-2.0-2.0); ABG HCO3 34.6 MEQ/L (22.0-26.0); ABG PARTIAL PRESSURE O2 223.4 mmHg (75.0-100.0); ABG TOTAL CO2 38.3 MEQ/L (23.0-31.0)
[2017-03-02 20:41] LABS: ABG PARTIAL PRESSURE CO2 119.9 mmHg (35.0-45.0); ABG pH (ARTERIAL) 7.078 UNITS (7.350-7.450)
[2017-03-02 21:00] VITALS: BP 92/53
[2017-03-02] MEDS: **hydrALAZINE** 10 MG TAB PO SCH (21:00)
[2017-03-02] MEDS: PALIPERIDONE 3 MG ER TAB (INVEGA) PO SCH (21:00)
[2017-03-02 22:00] VITALS: BP 95/52
--- NOTE | 2017-03-02 22:00 | CR ---
DATE OF CONSULTATION: 03/02/2017 REFERRING PHYSICIAN; Dr. Barbara Thompson. REASON FOR CONSULTATION: Diabetic cardiomyopathy, acute on chronic systolic and diastolic heart failure, systemic hypertension, abnormal troponin I. HISTORY OF PRESENT ILLNESS: History is obtained from the patient's medical records available in the EMR and a prior echocardiogram report from 04/08/2006. The patient was unable to provide history at this time because of altered mental status. He was not able to verbalize and understand questions. According to the history of present illness for this hospitalization, the patient was in his usual state of health until the day prior to admission when he complained of shortness of breath. He had not been having any cough of fever, although he had been having some chills. He was not aware of any lower extremity edema. He was having orthopnea. He had denied any chest pain or palpitations. The patient was at the time of admission, found to have acute on chronic heart failure, acute renal failure superimposed on chronic kidney disease, an elevated troponin I level, anemia and respiratory failure. PAST MEDICAL AND SURGICAL HISTORY: Type 2 diabetes. Morbid obesity. Systemic hypertension. Chronic systolic and diastolic heart failure. Hyperlipidemia. Chronic obstructive pulmonary disease. Schizophrenia. Gastroesophageal reflux disease. Anemia of chronic disease. Secondary renal hyperparathyroidism. Chronic kidney disease. MEDICATIONS FROM THE LONGTERM FACILITY: Included - Toujeo - Procrit - amlodipine 5 mg daily - atorvastatin 40 mg daily - calcitriol 0.25 mcg daily - calcium carbonate 500 mg twice a day - carvedilol 12.5 mg twice a day - vitamin D 1000 units daily - Colace 100 mg twice a day - ferrous sulfate 325 mg twice a day - Humalog insulin 8 units three times a day with meals - omeprazole 20 mg daily - oxcarbazepine 300 mg at twice a day - Invega 3 mg every evening - Senokot 8.6 mg twice a day - Flomax 0.4 mg two capsules daily - torsemide 60 mg twice a day - Effexor XR 75 mg two capsules daily ALLERGIES: No known adverse drug reactions. PATIENTS CURRENT MEDICATIONS IN HOSPITAL ARE FOLLOWS: - acetaminophen 650 mg every 4 hours as needed - albuterol nebulizers 2.5 mg every 2 hours as needed - aspirin 81 mg daily - atorvastatin 40 mg daily - calcitriol 0.25 mcg Thursday, Thursday, Thursday - calcium carbonate 1000 mg three times a day - Carvedilol 12.5 mg twice a day - ferrous sulfate 325 mg twice a day - furosemide 100 mg IV every 6 hours - lorazepam 1 mg every 6 hours as needed IV - Prilosec 20 mg by mouth daily - oxcarbazepine 300 mg by mouth twice a day - Invega 3 mg by mouth at bedtime - tamsulosin 0.8 mg daily - Effexor extended relief 225 mg daily SOCIAL HISTORY: Resident at [facility]. No alcohol. Remote smoking history. FAMILY HISTORY: Negative for end stage kidney disease. REVIEW OF SYSTEMS: Review of systems could not be obtained directly from the patient because of his impaired mental status. He has a history of chronic shortness of breath attributed to chronic obstructive pulmonary disease and morbid obesity and chronic heart failure. Secondary renal hyperparathyroidism, type 2 diabetes, depression, Schizophrenia. PHYSICAL EXAMINATION: Severely morbidly obese man who was not in any respiratory or psychologic distress. He was verbally not coherent. Height 65 inches, weight 167.1 kg, BMI 61.3. Temperature 97.8, pulse 78 (regular), blood pressure 139/83, Oxygen saturation 94%. Currently on Oxygen by nasal cannula, 4 liters per minute by nasal cannula. No conjunctiva pallor, scleral icterus, or xanthomas. Oral mucosa was moist and without pallor or cyanosis. Jugular venous pulsations were difficult to assess due to neck obesity. Trachea midline. Presence of a dialysis catheter entering via the right subclavian approach. No palpable thyroid but difficult to assess due to neck obesity. No nail bed or clubbing cyanosis or splinter hemorrhages. No skin lesions, skin pallor, or icterus. Patient was unable to answer questions with regards to orientation to person, place and time. He was verbally incoherent. Curvature of the spine appeared normal. Gait not appropriate to test because of patient's altered mental status. Patient able to move all four extremities spontaneously. No muscle atrophy, fasciculations, or tremors. Respiratory expansion effort was fair. No crackles or wheezes. Normal breath sound intensity. No palpable apex beat. No left parasternal lifts, heaves, thrills, or palpable heart sounds. First and second heart sounds are diminished intensity. No S3 or S4 appreciated. No murmurs appreciated. Carotids were normal in volume and upstroke. Difficult to palpate abdominal aorta due to massive abdominal obesity. No abdominal bruits. Femoral pulses difficult to assess due to morbid obesity. Pedal pulses normal. 1 mm bilateral pitting edema in both legs. Abdomen was severely obese, soft, nontender. Unable to assess for hepatomegaly, splenomegaly or organomegaly due to massive abdominal obesity. Liver span difficult to assess due to abdominal obesity. Stool for occult blood not presently indicated. An echocardiogram Doppler from 05/06/2006 reported moderate degree of aortic valve sclerosis without evidence of regurgitation, mildly dilated left ventricle with LV systolic function appearing to be the lower limits of normal. Moderate left atrial dilatation and suggestive of impairment of LV diastolic relaxation. Echocardiogram Doppler 03/01/2017 has been reported under separate cover. T he conclusions showed the followin. Mildly dilated left ventricle with mild mixed eccentric/concentric left hypertrophy. Visual appearance of moderate global LV hypokinesis with severe reduction overall LV systolic function. LVEF 30% by visual estimated. Grade 1 LV diastolic dysfunction (impaired relaxation filing pattern). Suggestive of elevated mean left atrial pressure. 2. Degenerative, calcific aortic valve disease of a 3-cuspid aortic valve with mild aortic stenosis and absence of any aortic regurgitation. 3. Moderate left atrial dilatation. 4. Suggestive of mild elevation of pulmonary venous systolic pressure. Inferior vena cava plethora suggestive of elevated central venous pressure of at least 20 mmHg. Electrocardiogram 03/01/2017 at 08:28 AM shows sinus rhythm, 94 beats per minute , first degree AV block, mild non specific intraventricular conduction delay, non specific ST-T abnormalities. I have independently visualized the patient's portable semiupright AP chest x- ray acquired 03/01/2017 at 08:28 AM. It showed cardiomegaly despite the portable technique, suboptimal inspiration. Both diffuse interstitial and alveolar pulmonary edema. Probable at least small bilateral pleural effusions. Laboratory work 03/01/2017 at 08:15 AM was reviewed: WBC 18.5, hemoglobin 8.8, hematocrit 28.4, platelets 208. Sodium 144, potassium 4.7, chloride 108, CO2 29 , BUN 77, creatinine 4.80. Estimated glomerular filtration rate (GFR) 13.3. Glucose 149. Calcium 8.2. CPK 176. CPK MB 5.6. CPK MB percentage 3.18. Troponin I 0.63. Lactic acid 1.2. NT-Pro-BNP 23,120. Albumin 2.7. TSH 3.320. Laboratory work 03/02/2017 shows troponin I 5.03, CPK 383. ASSESSMENT AND PLAN: 1. Dilated cardiomyopathy. Patient has associated acute on chronic systolic and diastolic heart failure. Agree with high dose furosemide. Decisions with regards to dialysis to be decided by Dr. Duron. Agree with Carvedilol 12.5 mg twice a day. No ACEI or htinhxuiibj-ajziyrhp-eresypn (ARB) due to acute on chronic renal failure. I will add some long acting nitrate and hydralazine. Patient is DO NOT RESUSCITATE status. 2. Systolic and diastolic heart failure, acute on chronic, as per dilated cardiomyopathy above. 3. Systemic hypertension. Blood pressure generally controlled. Agree with IV furosemide and Carvedilol. I will add small dose of hydralazine and isosorbide mononitrate. 4. Aortic stenosis (non-rheumatic). Echocardiogram Doppler 03/01/2017 showed mild aortic valve stenosis. No aortic regurgitation. Stable. 5. Hyperlipidemia. Recommend a low fate low cholesterol diet. 6. Morbid obesity. Recommend caloric restriction carbohydrate consistent diet. 7. Abnormal troponin I. I believe this patient's troponin I is secondary to demand ischemia secondary to severe heart failure. He is DO NOT RESUSCITATE status. Recommend conservative measures (i.e. No plan for cardiac catheterization at this time especially in view of his acute on chronic renal failure and altered mental status). cc: MD Delgado Harrell MD MTDD
[2017-03-02 23:00] VITALS: BP 99/54
[2017-03-02 23:51] LABS: ABG BASE EXCESS -4.2 (-2.0-2.0); ABG HCO3 26.1 MEQ/L (22.0-26.0); ABG PARTIAL PRESSURE O2 89.7 mmHg (75.0-100.0); ABG STANDARD HCO3 20.9 MEQ/L (22.0-26.0); ABG TOTAL CO2 28.7 MEQ/L (23.0-31.0)
[2017-03-02 23:52] LABS: ABG PARTIAL PRESSURE CO2 84.2 mmHg (35.0-45.0); ABG pH (ARTERIAL) 7.109 UNITS (7.350-7.450)
[2017-03-03] VITALS (43 sets, daily range): BP systolic 86–157; BP diastolic 46–77; O2SAT 95
[2017-03-03] MEDS: FUROSEMIDE 100 MG/10 ML VIAL (J1940) IV SCH ×3 (00:26→13:15)
[2017-03-03 03:16] LABS: ABG BASE EXCESS -2.1 (-2.0-2.0); ABG HCO3 27.5 MEQ/L (22.0-26.0); ABG PARTIAL PRESSURE O2 74.5 mmHg (75.0-100.0); ABG STANDARD HCO3 22.6 MEQ/L (22.0-26.0)
[2017-03-03 03:20] LABS: ABG PARTIAL PRESSURE CO2 81.8 mmHg (35.0-45.0); ABG pH (ARTERIAL) 7.145 UNITS (7.350-7.450)
[2017-03-03] MEDS: ISOSORBIDE MONONITRATE 10MG TABLET PO SCH ×2 (05:43→16:04)
[2017-03-03 06:22] LABS: ABG BASE EXCESS -2.4 (-2.0-2.0); ABG HCO3 29.2 MEQ/L (22.0-26.0); ABG PARTIAL PRESSURE O2 117.8 mmHg (75.0-100.0); ABG STANDARD HCO3 22.5 MEQ/L (22.0-26.0); ABG TOTAL CO2 32.5 MEQ/L (23.0-31.0)
[2017-03-03 06:25] LABS: ABG pH (ARTERIAL) 7.058 UNITS (7.350-7.450)
[2017-03-03 06:37] LABS: MEAN CORPUSCULAR HEMOGLOBIN 30.7 pg (27.0-33.0); MEAN CORPUSCULAR HGB CONC 29.3 g/dl (32.0-36.5); MEAN CORPUSCULAR VOLUME 104.7 fl (80.0-96.0); PLATELET COUNT, AUTOMATED 187 10^3/uL (150-450); RED CELL DISTRIBUTION WIDTH 18.3 % (11.5-14.5); WHITE BLOOD COUNT 14.7 10^3/uL (4.0-10.0)
[2017-03-03 06:59] LABS: ALBUMIN 2.7 GM/DL (3.2-5.2); ALBUMIN/GLOBULIN RATIO 0.59 (1.00-1.93); BILIRUBIN,TOTAL 0.3 MG/DL (0.2-1.0); CALCIUM LEVEL 8.3 MG/DL (8.8-10.2); CREATININE FOR GFR 5.67 MG/DL (0.70-1.30); TOTAL PROTEIN 7.3 GM/DL (6.4-8.2)
[2017-03-03 07:01] LABS: POTASSIUM SERUM 5.5 MEQ/L (3.5-5.1)
[2017-03-03] MEDS ORDERED: LIDOCAINE 2% MDV 20 ML VIAL As Ordered ONE (07:57)
--- NOTE | 2017-03-03 08:39 | REP ---
Clinical: Endotracheal tube placement. Comparison: 03/02/2017. Findings: Endotracheal tube approximately 2 cm from the yanira. Right double-lumen catheter with tip in the right atrium. Cardiomegaly and findings to suggest vascular congestion/interstitial edema are appreciated along with trace basilar atelectasis. Small layering effusion cannot be excluded. No pneumothorax. Skeletal structures intact. Impression: Endotracheal tube approximately 2 cm above the yanira. Findings to suggest mild pulmonary vascular congestion/interstitial edema along with trace basilar atelectasis. Signed by Ezra Hartman MD 03/03/2017 08:31 A
[2017-03-03 08:58] LABS: ABG HCO3 24.9 MEQ/L (22.0-26.0); ABG PARTIAL PRESSURE O2 131.4 mmHg (75.0-100.0); ABG TOTAL CO2 26.8 MEQ/L (23.0-31.0)
[2017-03-03 08:59] LABS: ABG pH (ARTERIAL) 7.224 UNITS (7.350-7.450)
[2017-03-03 09:00] LABS: ABG PARTIAL PRESSURE CO2 61.7 mmHg (35.0-45.0)
[2017-03-03] MEDS: TAMSULOSIN 0.4 MG CAP PO SCH (09:00)
[2017-03-03] MEDS: CARVedilol 12.5 MG TAB PO SCH ×2 (09:00→20:29)
[2017-03-03] MEDS ORDERED: NOREPINEPHRINE BITARTRATE 8 MG in D5W 500 ML IV SCH ×3 (09:00→09:02)
[2017-03-03] MEDS: CALCIUM CARBONATE 500 MG CHEW U/D PO SCH ×3 (09:00→20:31)
[2017-03-03] MEDS: ASPIRIN 81 MG ENTERIC TAB PO SCH (09:00)
[2017-03-03] MEDS: FERROUS SULFATE 325MG TAB PO SCH (09:00)
[2017-03-03] MEDS: VENLAFAXINE **XR** 75MG CAPSULE PO SCH (09:00)
[2017-03-03] MEDS ORDERED: ALBUTEROL SULFATE 2.5 MG/0.5 ML INH NEB SOLN NEB PRN (09:00)
[2017-03-03] MEDS: OMEPRAZOLE 20 MG CAP PO SCH (09:00)
[2017-03-03] MEDS: OXcarbazepine 300 MG TAB PO SCH ×2 (09:00→21:43)
[2017-03-03] MEDS: **hydrALAZINE** 10 MG TAB PO SCH ×2 (09:00→20:28)
[2017-03-03] MEDS: MIDAZOLAM INJ 2 MG/2 ML VIAL (J2250) IV PRN ×2 (09:04→09:45)
[2017-03-03] MEDS: ATORVASTATIN 20 MG TAB PO SCH (09:06)
[2017-03-03] MEDS: CHLORHEXIDINE ORAL RINSE 0.12%/15ML 120ML BOTTLE MT SCH ×2 (09:44→21:42)
[2017-03-03] MEDS: PANTOPRAZOLE 40MG INJ (PROTONIX) (C9113) IV SCH (09:44)
--- NOTE | 2017-03-03 10:07 | IPN ---
DATE OF SERVICE: 03/03/2017 SUBJECTIVE: The patient is lethargic on BiPAP. He does not answer questions. He is able to give me a thumbs up but otherwise he does not nod yes or no. He does not follow the commands. OBJECTIVE: Vital signs: Temperature 98.3, pulse 69, respiratory rate 20, blood pressure 115/55, oxygen saturation 98% on 6% FiO2 full face BiPAP. General: He is a morbidly obese man lying in bed at a 30 degree angle , he is on BiPAP machine. He appears to be sleeping and lethargic. He does not appear to be in acute distress. HEENT: He is wearing BiPAP. Difficult to assess for elevation of central venous pressure secondary to body habitus. He appears to have mildly dry mucous membranes. Cardiovascular exam: S1, S2, appears quite irregular. Respiratory exam and cardiovascular exam: Distant secondary to body habitus. Anteriorly he is fairly clear although the exam is limited. Abdominal exam: Grossly obese. Bowel sounds present. He does not recoil to any abdominal palpation. Extremities: There is no appreciable edema. LABORATORY STUDIES: WBC 14.7, hemoglobin 8.4, platelet count 187. Chemistry panel: Sodium 145, potassium 5.5, chloride 107, bicarbonate 29, BUN 97, creatinine 5.6 up from 5.3, troponin 2.7 down from 3.3. Arterial blood gas reveals a pH of 7.0, pCO2 of 106. pO2 of 117. Bicarbonate 29.2. Microbiology: Blood cultures are negative at 48 hours. Urine culture is negative. IMAGING: The patient had no new imaging. ASSESSMENT AND PLAN: This is a 62-year-old man with acute on chronic respiratory failure. PROBLEMS: 1. Acute on chronic respiratory failure felt to be related to fluid overload and worsening chronic kidney disease with likely cardiorenal syndrome. I have spoken with Dr. Marino and Dr. Duron this morning. Given his worsening respiratory status despite being restarted in BiPAP overnight, plan is to intubate the patient. Patient was reportedly a DO NOT RESUSCITATE/DO NOT INTUBATE in the past. I discussed with his primary care physician Dr. Crain, when he was obtunded previously he was made comfort measures only by his health care proxy. When he was more lucid yesterday, this was rescinded in the presence of Dr. Duron who stated the patient did not want that previous health care proxy to continue to be his proxy. He did wish to have all interventions taken and as such pulm is currently planning for anesthesia to intubate. His pressures are low. Plan is also for placement of central venous catheter, and potentially start the patient on pressors. Dr. Marino has told me that she will reach out to Dr. River to aid in this process. In the interim, should his pressures drop, we would consider starting Levophed through his hemodialysis catheter for a map of 65. He was previously improving with IV Lasix, however, at this time, he does appear to be decompensating. We would like to dialyze him to help with fluid removal. His exam is not impressive for his dramatic fluid overload and this may be related to fairly isolated pulmonary edema. He does not appear to have had an acute coronary event. His troponins continue to trend down. Dr. Rodas's, Dr. Duron's and Dr. Marino's help was all greatly appreciated. Overall his prognosis appears to be quite poor. 2. Acute on chronic renal failure as above. Dr. Duron's help is appreciated. Emergent dialysis was placed yesterday with an attempt to optimize his hemodynamics in order to make him a better candidate for dialysis today. 3. Chronic obstructive pulmonary disease (COPD). He is started on nebulizer treatments. Plan is for intubation. Pulmonary's help greatly appreciated. 4. Chronic anemia. No indication for transfusion. Would likely benefit from ARBs in the future should he be able to receive it. 5. Depression and schizophrenia. Normally on Ativan, Trileptal, Effexor, Invega. His mental status has worsened secondary to hypercapnic respiratory failure and metabolic encephalopathy. 6. Gastrointestinal (GI) prophylaxis, he is on Protonix. 7. Dilated cardiomyopathy with acute on chronic diastolic/systolic congestive heart failure. He appears to be worsened on the face of diuresis. For the time being, given that he is hypotensive, we will place parameters on his Coreg and his nitrates and hydralazine. 8. Abnormal troponin likely secondary to demand ischemia. 9. Dyslipidemia, he is on a statin. 10. Symptomatic diabetes. He is on sliding scale. He will be n.p.o. once intubated. 11. Deep venous thrombosis (DVT) prophylaxis on heparin. DISPOSITION: Prognosis is guarded. MTDD
[2017-03-03] MEDS: PROPOFOL 1,000 MG in APPROPRIATE DILUENT 1 EA IV SCH ×2 (10:40→18:08)
--- NOTE | 2017-03-03 11:26 | REP ---
Clinical: Central line placement. Comparison: 03/03/2017 at 08:36 a.m. Findings: The endotracheal tube is approximately 13 mm from the yanira. A double lumen central line is identified with tip in right atrium. Cardiomegaly and mild pulmonary vascular congestion cannot be excluded. No obvious effusion. No pneumothorax. Skeletal structures intact. Impression: 1. Endotracheal tube 13 mm from the yanira. 2. Double-lumen central venous catheter with tip in the right atrium. No pneumothorax. 3. Stable cardiomegaly and findings to suggest pulmonary vascular congestion/interstitial edema. Signed by Ezra Hartman MD 03/03/2017 11:17 A
[2017-03-03] MEDS: IPRATROPIUM 0.5MG/ALBUTEROL 2.5MG INH SOL UD 3ML (DUONEB)(J7620) NEB SCH ×4 (12:00→23:33)
[2017-03-03 13:07] LABS: ALBUMIN 2.4 GM/DL (3.2-5.2); CALCIUM LEVEL 7.6 MG/DL (8.8-10.2); CALCIUM LEVEL 7.7 MG/DL (8.8-10.2); CREATININE FOR GFR 5.74 MG/DL (0.70-1.30); CREATININE FOR GFR 5.76 MG/DL (0.70-1.30); GLOMERULAR FILTRATION RATE 10.8 (>49); PHOSPHORUS LEVEL 8.1 MG/DL (2.5-4.9)
[2017-03-03 13:10] LABS: POTASSIUM SERUM 5.2 MEQ/L (3.5-5.1)
[2017-03-03 13:11] LABS: POTASSIUM SERUM 5.2 MEQ/L (3.5-5.1)
--- NOTE | 2017-03-03 16:03 | IPN ---
DATE: 03/03/2017 Mr. Valadez is seen this morning in the intensive care unit on his bedside. He was on BiPAP through the night; however, had worsening respiratory status. 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 We already had a PermaCath placed yesterday in anticipation for dialysis. The patient was placed on intravenous Lasix and he was responding to it. He developed worsening CO2 retention despite negative fluid balance and improved chest x-ray appearance late yesterday. He was intubated by anesthesia due to worsening altered mentation with CO2 up to 100 on his blood gas. At the time of my visit, he had been sedated with Versed; however, he did open his eyes. He has been afebrile. He did have elevated Troponins, which have been trending downwards since yesterday. Intake and output records for last 24 hours showed a total intake 240 mL and output 1015 mL. His medications are reviewed and he is now on heparin 5000 units subcu every 8 hours, DuoNebs 3 mL every 4 hours, aspirin 81 mg daily, Versed 2 mg every 15 hours p.r.n. agitation, Protonix 40 mg intravenous daily, Invega 3 mg at bedtime, hydralazine 10 mg b.i.d., isosorbide mononitrate 10 mg b.i.d., Lasix 100 mg intravenous every 6 hours, atorvastatin 40 mg daily, Rocaltrol 0.25 mcg daily, Tums 1000 mg t.i.d., Coreg 12.5 mg b.i.d., ferrous sulfate 325 mg b.i.d., Trileptal 300 mg b.i.d., Flomax 0.8 mg daily, Effexor XR 150 mg daily and Tylenol as needed. PHYSICAL EXAMINATION: The patient is intubated and sedated. Temperature is 99.2 degrees Fahrenheit, heart rate 52 per minute and respiratory rate 18 per minute on the ventilator. Blood pressure is about 119/58 mmHg and oxygen saturation 98% on the ventilator with 45% FIO2. Head is atraumatic. Pupils are equal and reactive to light and sclera is anicteric. Endotracheal tube is in place. Neck veins are difficult to be assessed. Heart sounds are bradycardic and distant. Lungs have moderate bilateral air entry. He does have expiratory wheezing. Abdomen is obese and bowel sounds are present. Extremities have no cyanosis or clubbing. Skin is dry and without any rash or ulcers. Neurologically, he is now sedated. LABORATORIES: Today's labs show WBC count 14.7, hemoglobin 8.4 and hematocrit 28.7. Platelets 187. His blood gas this morning showed a pH of 7.05, pCO2 106, pO2 117.8 and bicarb 22.5. Most recent blood gas after intubation showed a pH of 7.22, pCO2 61.7, pO2 131.4 and bicarb 22. Sodium is 145, potassium 5.2, BUN 100 and creatinine 5.76. Calcium level 7.6. His Troponin was 5.1 yesterday afternoon and later it was 3.39. This morning 2.78 and 2.66, respectively. Chest x-ray after intubation did show endotracheal tube 13 mm from yanira and double-lumen hemodialysis catheter with tip in the right atrium and no pneumothorax. Cardiomegaly was noted and some pulmonary vascular congestion. PROBLEMS: 1. Respiratory failure. The patient has been intubated due to CO2 narcosis. I do not feel that his respiratory failure is entirely related to volume overload. He does have mild pulmonary edema; however, it was improved compared with his admission chest x-ray. He has been responding to diuretic with negative fluid balance over last 24 hours. He most likely has multifactorial etiology of his respiratory failure including bronchospasm. He also has obstructive sleep apnea and morbid obesity. In any event, we will try to dialyze him as his hemodynamics improve. We will not be able to remove any excessive amount of fluid due to risk of worsening hypotension. 2. End stage renal disease. The patient has about stage V of chronic kidney disease even at baseline. Preparations for dialysis were already in the works even prior to this admission. He already has a PermaCath placed and we will plan to dialyze him today on bedside. 3. Hyperkalemia. His potassium level did improve slightly. However, still borderline high. This will be corrected with hemodialysis. We will use a 2.0 mEq potassium bath. 4. Elevated Troponin. He did have elevated Troponins, however, it has now trended downwards. The patient has been seen by cardiology and he remains on aspirin and nitroglycerin in addition to beta herbert. 5. Anemia. He has anemia of chronic kidney disease. At present I will stop his oral iron supplement and will consider giving him intravenous iron once he is more stable. 6. Hyperparathyroidism. The patient has been on calcitriol 0.25 mcg three times a week. I am going to stop it for now as with end stage renal disease his intact PTH level will be kept between 150 and 300. 7. History of urinary retention. The patient currently has a Borrero catheter in place and he is somewhat hypotensive. I will stop his Flomax for now and keep the Borrero catheter in until his condition improves. Flomax is likely to worsen hypotension. 48 minutes of critical care time spent, during which no procedures were done.
[2017-03-03] MEDS: HEPARIN SOD (PORCINE) 5000 UNITS/ML VIAL SC SCH ×2 (16:04→21:43)
--- NOTE | 2017-03-03 16:05 | IPN ---
DATE: 03/03/2017 Mr. Valadez is seen this afternoon again during dialysis. I had seen him early this morning and at that time discussed his care with hospitalist and Dr. Marino. The patient is now on low-dose Levophed, and he is currently being dialyzed on his bedside. He also had a left subclavian triple-lumen catheter placed, which is currently being used for medications. He is now being sedated with propofol. His heart rate is 54 per minute, respiratory rate 22 per minute and blood pressure 118/59 mmHg. Oxygen saturation is 99% on 45% oxygen. He did have about 700 mL of urine output since this morning. The patient has a right internal jugular vein hemodialysis catheter and left subclavian vein triple-lumen catheter. Endotracheal tube is in place. His head is atraumatic. Neck is supple and jugular venous distention (JVD) is difficult to be assessed. Heart sounds bradycardiac and lungs with moderate bilateral air entry. Abdomen is obese and nontender. Extremities have no cyanosis or clubbing. Repeat laboratories showed sodium 145, potassium 5.2. BUN 100 and creatinine 5.74. Calcium 7.7 and phosphorus 8.1. PROBLEMS: 1. End-stage renal disease. The patient is being dialyzed and is tolerating dialysis treatment well. We are not trying to remove any fluid at this point due to hypotension and need for pressors. He has diuresed already. 2. Congestive heart failure. Volume status has improved to a certain extent. We will continue to monitor closely and I am stopping his Lasix for now. 3. Hyperkalemia. This is mild and likely to correct with hemodialysis. 4. Hyperphosphatemia related to end-stage renal disease. It will be partly corrected with hemodialysis. Once the patient gets extubated and able to start eating then we will add phosphate binders. Other issues have already been discussed.
[2017-03-03 16:57] LABS: ABG BASE EXCESS 4.4 (-2.0-2.0); ABG HCO3 29.3 MEQ/L (22.0-26.0); ABG PARTIAL PRESSURE CO2 45.8 mmHg (35.0-45.0); ABG PARTIAL PRESSURE O2 153.6 mmHg (75.0-100.0); ABG STANDARD HCO3 28.5 MEQ/L (22.0-26.0); ABG TOTAL CO2 30.7 MEQ/L (23.0-31.0); ABG pH (ARTERIAL) 7.424 UNITS (7.350-7.450)
[2017-03-03] MEDS ORDERED: HEPARIN 1,000 UNITS/ML 10ML VIAL (FOR RADIOLOGY& DIALYSIS ONLY) XX ONE (17:30)
[2017-03-03] MEDS ORDERED: HEPARIN 1,000 UNITS/ML 10ML VIAL (FOR RADIOLOGY& DIALYSIS ONLY) IV ONE (17:30)
--- NOTE | 2017-03-03 20:01 | CCN ---
DATE: 03/03/2017 NOTE: Mr. Valadez is a 62-year-old white male known to the pulmonary service when he presented on 03/01/2017, with acute hypoxemic and hypercapnic respiratory failure secondary to decompensated congestive heart failure (CHF) that led to noninvasive mechanical ventilation (NIMV). He has known left ventricular (LV) dysfunction with an ejection fraction (EF) of 30%, morbid obesity, and likely obstructive sleep apnea. He also carries a label of chronic obstructive pulmonary disease (COPD) per chart, but I do not know how that has been diagnosed. He also has chronic kidney disease stage IV, hypertension, and schizophrenia. Apparently, as an outpatient, he was working toward being started on dialysis. When he was admitted on 03/01/2017, he was placed on NIMV. He did have some clinical response when I saw him and his arterial blood gases were improving, but apparently at some point in time that night, there was a discussion with his healthcare proxy and he was made comfort measures only, taken off NIMV, and moved to the floor. On the morning of 03/02/2017, he apparently, at least transiently, woke up and had discussions with Dr. Duron and Dr. Thompson and stated that that was not his wishes and that he wanted to not only proceed, but it appeared that he also wanted to reverse the do not resuscitate/do not intubate and be a full code. Yesterday, he had a Permacath placed. He had an arterial blood gas done around 5 o'clock that showed a pH of 7.3 and he was reportedly responsive. During the early evening, I first got a phone call that he was unresponsive and a repeat arterial blood gas showed his arterial blood gas to be 7.08/120 with a measured saturation of 100%. I placed him back on noninvasive mechanical ventilation at a rate of 20 so that it would truly act as a ventilator and made certain to decrease the amount of oxygen he was receiving. Repeat blood gases later in the evening and at 3 a.m. showed that he was slowly, but definitively, correcting. He reportedly was responsive at 3 a.m. and had conversations with the nurse and was following commands. Some time around then, his saturations decreased to the low 80s and his FiO2 was increased to 60%. This morning, on his arterial blood gas he showed a pH of 7.06 with a pCO2 of 106 and pO2 of 118 and a saturation of 98%. Some manipulations were made in the NIMV, but it was clear that he was going to require intubation and mechanical ventilation. While the intubation was being organized, he was actually responsive despite his abnormal arterial blood gas, but not to the point he could truly answer whether or not he wanted this procedure done. He was then successfully intubated. Following intubation, he transiently required a low dose of Levophed. He needed emergent dialysis and he underwent that this afternoon and only required Levophed at 3 mcg during the procedure to maintain a good blood pressure. Currently, Mr. Valadez is sedated and synchronous with the ventilator. He is not overbreathing the ventilator, but does not have a need to as will be demonstrated by his arterial blood gas below. OBJECTIVE: PHYSICAL EXAMINATION: VITAL SIGNS: (During initial examination this morning prior to intubation): Temperature 97, pulse 67, respiratory rate 20, blood pressure 109/58 with a mean arterial pressure (MAP) of 75, SpO2 99% on NIMV with a 0.6. HEENT: Anicteric, pupils equal, round, and reactive to light. Nares and oropharynx not examined secondary to full face mask. NECK: Supple, unable to assess jugular venous pressure (JVP) secondary to body habitus. Trachea is midline. LYMPHATICS: Without cervical or supraclavicular lymphadenopathy. LUNGS: Symmetric excursion, fair air entry, no significant wheeze, rhonchi, or crackle appreciated. Normal I:E. No accessory muscle usage or retractions. CARDIOVASCULAR: Regular rate and rhythm with a normal S1, S2, no murmur, rub, or gallop appreciated. ABDOMEN: Positive bowel sounds, soft, nondistended, no hepatosplenomegaly appreciated, though difficult examination secondary to body habitus. EXTREMITIES: Positive edema, without clubbing or cyanosis, normal capillary refill. LABORATORY DATA: His most recent chemistries from 12:16 showed sodium 145, potassium 5.2, chloride 105, bicarbonate 26, anion gap 14, BUN 100, creatinine 5.7, glucose 133, calcium 7.7, phosphorous 8.1, albumin 2.4. Sequences of troponins had been drawn over the night of 03/02/2017, with a maximum troponin of 5.1. His most recent troponin is 2.66. CBC from this morning show a hemoglobin of 8.4, hematocrit 28.7, platelet count 187,000, white blood cell count 14,700. His most recent arterial blood gas on assist control with a rate of 17, tidal volume of 460, PEEP of 8, and FiO2 of 0.45 was 7.42/46/154 with a measured saturation of 99% and a base excess of 4.4. I reviewed his chest x-ray as well as the report from this morning. That x-ray showed enlarged cardiac silhouette with possibly pulmonary vascular shadows. He had mild interstitial infiltrates that had improved since his admission chest x-ray. No consolidated regions. Endotracheal (ET) tube is in good position. IMPRESSION: 1. Acute hypoxemic and hypercapnic respiratory failure requiring mechanical ventilation. Is thought to be multifactorial with a portion related to pulmonary edema and renal failure with a respiratory component being in part related to possibly obesity hypoventilation versus obstructive sleep apnea versus chronic obstructive pulmonary disease (COPD) versus a combination of all three. 2. End-stage renal disease requiring initiation of hemodialysis. 3. Congestive heart failure. (Ejection fraction (EF) 30% as well as grade 1 diastolic dysfunction.) 4. Dilated cardiomyopathy. 5. Hypertension. 6. Elevated troponin, thought secondary to demand ischemia related to severe heart failure. 7. Possible chronic obstructive pulmonary disease (COPD) per chart (spirometry unknown). RECOMMENDATIONS: 1. Will continue supportive care through mechanical ventilation with hopes that the need for this will decrease as he undergoes dialysis. 2. Will decrease his ventilator settings as I would ideally like him to be triggering 2-4 breaths above the set rate. 3. Will use Levophed as required to obtain a mean arterial pressure (MAP) greater than 65. 4. Will use propofol for sedation with as needed Versed and morphine. I would prefer that we even temper that with Levophed if necessary as I am fearful with his morbid obesity (body mass index (BMI) 62) that there will be too much lipid distribution of the benzodiazepine and then when and if he is able to be weaned, this will be an impediment that could require him to stay on the ventilator for many days longer than clinically needed. Critical care time: 75 minutes, not including procedure time. CHUY
[2017-03-03] MEDS: PALIPERIDONE 3 MG ER TAB (INVEGA) PO SCH (20:30)
[2017-03-04] VITALS (18 sets, daily range): BP systolic 104–161; BP diastolic 53–77; O2SAT 96
[2017-03-04] MEDS: PROPOFOL 1,000 MG in APPROPRIATE DILUENT 1 EA IV SCH ×6 (02:50→23:07)
[2017-03-04] MEDS: IPRATROPIUM 0.5MG/ALBUTEROL 2.5MG INH SOL UD 3ML (DUONEB)(J7620) NEB SCH ×5 (03:22→19:38)
[2017-03-04] MEDS: HEPARIN SOD (PORCINE) 5000 UNITS/ML VIAL SC SCH ×3 (06:09→21:11)
[2017-03-04] MEDS: ISOSORBIDE MONONITRATE 10MG TABLET PO SCH (06:09)
[2017-03-04 06:19] LABS: MEAN CORPUSCULAR HEMOGLOBIN 30.4 pg (27.0-33.0); MEAN CORPUSCULAR HGB CONC 30.9 g/dl (32.0-36.5); MEAN CORPUSCULAR VOLUME 98.6 fl (80.0-96.0); PLATELET COUNT, AUTOMATED 167 10^3/uL (150-450); WHITE BLOOD COUNT 7.2 10^3/uL (4.0-10.0)
[2017-03-04 06:20] LABS: ABG BASE EXCESS 2.6 (-2.0-2.0); ABG HCO3 27.9 MEQ/L (22.0-26.0); ABG PARTIAL PRESSURE CO2 47.4 mmHg (35.0-45.0); ABG STANDARD HCO3 26.8 MEQ/L (22.0-26.0); ABG TOTAL CO2 29.4 MEQ/L (23.0-31.0); ABG pH (ARTERIAL) 7.388 UNITS (7.350-7.450)
[2017-03-04 06:49] LABS: ALBUMIN 2.2 GM/DL (3.2-5.2); ALBUMIN/GLOBULIN RATIO 0.67 (1.00-1.93); BILIRUBIN,TOTAL 0.4 MG/DL (0.2-1.0); CALCIUM LEVEL 7.6 MG/DL (8.8-10.2); CREATININE FOR GFR 4.04 MG/DL (0.70-1.30); GLOMERULAR FILTRATION RATE 16.2 (>49); POTASSIUM SERUM 3.8 MEQ/L (3.5-5.1); TOTAL PROTEIN 5.5 GM/DL (6.4-8.2)
[2017-03-04 07:13] LABS: MEAN CORPUSCULAR HEMOGLOBIN 30.4 pg (27.0-33.0); MEAN CORPUSCULAR HGB CONC 31.3 g/dl (32.0-36.5); MEAN CORPUSCULAR VOLUME 97.2 fl (80.0-96.0); PLATELET COUNT, AUTOMATED 185 10^3/uL (150-450); RED CELL DISTRIBUTION WIDTH 18.1 % (11.5-14.5); WHITE BLOOD COUNT 7.4 10^3/uL (4.0-10.0)
[2017-03-04 07:15] LABS: ALBUMIN 2.2 GM/DL (3.2-5.2); ALBUMIN/GLOBULIN RATIO 0.58 (1.00-1.93); BILIRUBIN,TOTAL 0.4 MG/DL (0.2-1.0); CALCIUM LEVEL 7.7 MG/DL (8.8-10.2); CREATININE FOR GFR 4.05 MG/DL (0.70-1.30); GLOMERULAR FILTRATION RATE 16.2 (>49); POTASSIUM SERUM 3.7 MEQ/L (3.5-5.1)
--- NOTE | 2017-03-04 08:08 | RO ---
DATE OF PROCEDURE: 03/03/2017 PREPROCEDURE DIAGNOSIS: Hypotension. Need for vascular access and pressors. POSTPROCEDURE DIAGNOSIS: Hypotension. Need for vascular access and pressors. PROCEDURE: Insertion of left subclavian central line. SURGEON: Dr. Damian River SALES DEVELOPMENT COORDINATOR: ANESTHESIA: The patient is a 62-year-old, morbidly obese white male who is hypotensive and needs pressure support. I was asked to place a central line. DESCRIPTION OF PROCEDURE: The patient's left infraclavicular fossa was prepped and draped in the usual sterile fashion. The fossa was infiltrated with 1% Xylocaine. I started laterally as the patient is so morbidly obese. I immediately hit the artery, which I held for three minutes. The artery was not dilated. I then proceeded to march medially until I could find the vein. It took multiple sticks. Finally, the vein was found and a wire was placed with some difficulty, but after a number of angle changes of the needle the wire would pass. A triple lumen catheter was placed without difficulty and the ports were aspirated and flushed. The catheter was secured to the chest wall with two #3-0 silk sutures. The patient tolerated the procedure well and a chest x-ray is pending.
--- NOTE | 2017-03-04 08:39 | REP ---
Portable chest x-ray: Single view. History: Intubated patient. Comparison study March 03, 2017. Findings: Endotracheal tube remains in good position. A left subclavian catheter is seen terminating in the SVC. A right internal jugular tunnel catheter is seen terminating in the region of the right atrium. An NG tube enters the left upper quadrant. EKG electrodes are noted. Cardiomegaly is again observed. Pulmonary vascular congestion pattern persists. I cannot exclude a small amount of left pleural fluid. There is plate-like atelectasis at the right base. Signed by Scott Huynh MD 03/04/2017 11:17 A
[2017-03-04] MEDS: ASPIRIN 81 MG ENTERIC TAB PO SCH (08:47)
[2017-03-04] MEDS: VENLAFAXINE **XR** 75MG CAPSULE PO SCH (08:48)
[2017-03-04] MEDS: MORPHINE 2 MG/ML 1ML SYRINGE IV PRN ×4 (09:33→21:11)
[2017-03-04] MEDS: PANTOPRAZOLE 40MG INJ (PROTONIX) (C9113) IV SCH (10:05)
[2017-03-04] MEDS: ATORVASTATIN 20 MG TAB PO SCH (10:06)
[2017-03-04] MEDS: OXcarbazepine 300 MG TAB PO SCH ×2 (10:06→21:11)
[2017-03-04] MEDS: CALCIUM CARBONATE 500 MG CHEW U/D PO SCH ×3 (10:06→21:11)
[2017-03-04] MEDS: CHLORHEXIDINE ORAL RINSE 0.12%/15ML 120ML BOTTLE MT SCH ×2 (10:06→21:11)
[2017-03-04] MEDS ORDERED: HEPARIN 1,000 UNITS/ML 10ML VIAL (FOR RADIOLOGY& DIALYSIS ONLY) IV ONE (10:30)
--- NOTE | 2017-03-04 19:21 | IPN ---
DATE: 03/04/2017 Mr. Valadez is seen this morning during rounds on his bedside in intensive care unit. He remains intubated and minimally sedated. He was able to open his eyes when I called his name. Yesterday he was on Levophed due to low blood pressure however, today he is off Levophed and remains on propofol. He has been afebrile and hemodynamically stable. There is no active bleeding noticed anywhere. He did not have any melena stools or rectal bleeding during last 24 hours. PHYSICAL EXAMINATION: Temperature 97.9 degrees Fahrenheit, heart rate 64 per minute and respiratory rate 14 per minute on the ventilator. Blood pressure 104/53 mmHg and oxygen saturation 95% on 35% FIO2. Intake and output records from yesterday showed total intake only 220 mL and output 1200 mL. His head is atraumatic. He is pale but not in any acute distress. Endotracheal tube and nasogastric tubes are in place. Neck veins are difficult to be assessed. Heart: Sounds are regular and distant. Lungs: Have moderate bilateral air entry. Abdomen is obese and nontender. Extremities: Have no cyanosis or clubbing. There is no peripheral edema noticed. Skin is dry and without any rash or ulcers. Neurologically he is minimally responsive and does open his eyes to verbal command. Today's labs show WBC count 7.2, hemoglobin 6.3 and hematocrit 20.4. A repeat hemoglobin is 6.5 and hematocrit 20.8. Sodium 145 and potassium 3.8. BUN 59 and creatinine 4.04. Glucose 80, calcium 7.6. PROBLEMS: 1. Respiratory failure probably multifactorial related to obstructive sleep apnea with obesity and possible bronchospasm. He does not seem to have any significant volume overload at least clinically. He did diurese and now his Lasix has been stopped. At this point we will try to remove fluid with dialysis if tolerated. He remains on nebulizer therapy. 2. Acute renal failure superimposed on chronic kidney disease. The patient has end-stage renal disease and he is likely to remain dialysis dependent. He will be dialyzed again later today. Yesterday he tolerated dialysis reasonably well. 3. Hyperkalemia and hyperkalemia has corrected with dialysis and we will use 4.0 mEq potassium bath for dialysis today. 4. Anemia. His anemia worsened without any evidence of blood loss. The patient will be given 2 units of packed red blood cells today during dialysis. CBC will be checked again tomorrow morning. 27 minutes of critical care time spent.
[2017-03-04] MEDS: PALIPERIDONE 3 MG ER TAB (INVEGA) PO SCH (21:00)
--- NOTE | 2017-03-04 22:09 | CCN ---
DATE: 03/04/2017 Mr. Valadez remains critically ill with acute hypoxemic and hypercapnic respiratory failure leading to mechanical ventilation. He has remained hemodynamically stable overnight; however, this morning's hemoglobin was 6.3 and recheck was 6.5. It is not clear as to the cause for his acute decrease in hemoglobin and hematocrit. He is scheduled to undergo dialysis today. On is propofol holiday he is responsive and indicates that he does not fully understand why he has the endotracheal tube in, though after multiple attempts to explain it to him, he indicated understanding at the end. He denied any pain except for his sore throat. OBJECTIVE: PHYSICAL EXAMINATION: Mr. Valadez is lying in bed in no acute distress. He appears synchronous with the ventilator, though he does cough when he is awake. VITAL SIGNS: Temperature 97.6 with a maximal temperature of 98.5, pulse 62, respiratory rate 14, SpO2 of 96% on FiO2 of 0.35. HEENT: Anicteric, pupils equal, round, and reactive to light (PERRL). Nares patent bilaterally. Oropharynx: Endotracheal (ET) tube and orogastric (OG) tube in place. NECK: Supple. Cannot appreciate central venous pressure (CVP) secondary to body habitus. Trachea is midline. LYMPHATICS: Without cervical or supraclavicular lymphadenopathy. LUNGS: Symmetric excursion. Fair air entry. No wheeze, rhonchi, or significant crackle appreciated. Normal inspiratory to expiratory (I-to-E). No accessory muscle usage or retractions. CARDIOVASCULAR: Regular rate and rhythm with a normal S1, S2. No murmur, rub, or gallop appreciated. ABDOMEN: Positive bowel sounds, soft, nondistended. No hepatosplenomegaly or masses appreciated, though difficult to examine secondary to body habitus. EXTREMITIES: Positive edema without clubbing or cyanosis. He has a lesion that is scabbed on his right lower extremity. LABORATORY DATA: CBC showed a hemoglobin of 6.5, hematocrit 20.8, platelet count 185,000, white blood cell count 7400. Chemistries showed a sodium 145, potassium 3.7, chloride 106, bicarbonate 30, anion gap 9, BUN 58, creatinine 4.05, glucose 84, calcium 7.7. Total bilirubin 0.4, AST 20, ALT 23, alkaline phosphatase 50, total protein 6, albumin 2.2. Arterial blood gas this morning was 7.39/47/98 with a measured saturation 97% and a base excess of 2.3. This was on an FiO2 of 0.3. I reviewed his chest x-ray as well as the report. That x-ray showed enlarged cardiac silhouette and pulmonary vascular shadows. There remains cephalization and increased interstitial markings. No consolidated region. Endotracheal tube is in good position. IMPRESSION: 1. Acute hypoxemic and hypercapnic respiratory failure leading to mechanical ventilation. The cause is thought to be multifactorial with a portion related to pulmonary edema and renal failure and with a respiratory component that is possibly obesity hypoventilation plus or minus obstructive sleep apnea. It is less clear as to whether he also has chronic obstructive pulmonary disease (COPD ). 2. End-stage renal disease requiring dialysis. 3. Congestive heart failure (CHF) (ejection fraction [EF] 30% as well as grade 1 diastolic dysfunction). 4. Dilated cardiomyopathy. 5. Hypertension. 6. Elevated troponins this admission thought secondary to demand ischemia related to severe heart failure.' 7. Possible COPD. Again, spirometric values are not known. RECOMMENDATIONS: 1. Would continue ventilatory support. He is on a lung protective strategy with his 6 mL/kg ideal body weight tidal volume 369, 7 mL would be 431, and 8 mL would be 492. 2. Will give 2 units of red blood cells (RBC) during dialysis. 3. Will hold subcutaneous heparin for now with hopes to initiate it in the near future. He needs to have sequential compression devices (SCDs) and thromboembolic deterrents (TEDs) in place for deep vein thrombosis (DVT) prophylaxis. 4. Once he starts dialysis and fluid is removed and bicarbonate appropriate for him, perhaps he will be extubated in the near future. If he does not appear to be extubatable tomorrow, will start tube feeds. 5. I have spoken to patient and family services (PFS) regarding healthcare proxy, as he has indicated that he does not want the individual he currently has as his healthcare proxy, but he did mention to Dr. Duron there is another female person who he feels would be appropriate. I relayed this information and asked them to see if they could assist us in locating this person. While he can make his own decisions at this point and was clearly appropriate when he was on a sedation holiday, there may come a time when he cannot do that, and I would like to see the healthcare proxy in place. CRITICAL CARE TIME: 40 minutes, not including procedure time. CHUY
[2017-03-05] VITALS (17 sets, daily range): BP systolic 121–189; BP diastolic 51–90; O2SAT 97
[2017-03-05] MEDS: IPRATROPIUM 0.5MG/ALBUTEROL 2.5MG INH SOL UD 3ML (DUONEB)(J7620) NEB SCH ×4 (00:06→11:29)
[2017-03-05] MEDS: MORPHINE 2 MG/ML 1ML SYRINGE IV PRN (02:50)
[2017-03-05] MEDS: PROPOFOL 1,000 MG in APPROPRIATE DILUENT 1 EA IV SCH ×3 (02:50→07:44)
[2017-03-05] MEDS: HEPARIN SOD (PORCINE) 5000 UNITS/ML VIAL SC SCH ×3 (05:24→21:35)
[2017-03-05 05:30] LABS: MEAN CORPUSCULAR HEMOGLOBIN 30.6 pg (27.0-33.0); MEAN CORPUSCULAR HGB CONC 32.2 g/dl (32.0-36.5); MEAN CORPUSCULAR VOLUME 95.1 fl (80.0-96.0); PLATELET COUNT, AUTOMATED 160 10^3/uL (150-450); RED CELL DISTRIBUTION WIDTH 19.2 % (11.5-14.5); WHITE BLOOD COUNT 5.2 10^3/uL (4.0-10.0)
[2017-03-05 05:54] LABS: ALBUMIN 2.3 GM/DL (3.2-5.2); ALBUMIN/GLOBULIN RATIO 0.66 (1.00-1.93); BILIRUBIN,TOTAL 0.5 MG/DL (0.2-1.0); CREATININE FOR GFR 2.9 MG/DL (0.70-1.30); GLOMERULAR FILTRATION RATE 23.7 (>49); POTASSIUM SERUM 3.9 MEQ/L (3.5-5.1); TOTAL PROTEIN 5.8 GM/DL (6.4-8.2)
[2017-03-05] MEDS ORDERED: FUROSEMIDE 100 MG/10 ML VIAL (J1940) IV ONE ×2 (07:45→18:00)
[2017-03-05] MEDS: OXcarbazepine 300 MG TAB PO SCH ×2 (08:17→21:00)
[2017-03-05] MEDS: VENLAFAXINE **XR** 75MG CAPSULE PO SCH (08:17)
[2017-03-05] MEDS: CALCIUM CARBONATE 500 MG CHEW U/D PO SCH ×3 (08:17→21:00)
[2017-03-05] MEDS: CHLORHEXIDINE ORAL RINSE 0.12%/15ML 120ML BOTTLE MT SCH (08:18)
[2017-03-05] MEDS: ATORVASTATIN 20 MG TAB PO SCH (08:18)
[2017-03-05] MEDS: PANTOPRAZOLE 40MG INJ (PROTONIX) (C9113) IV SCH (08:18)
[2017-03-05] MEDS: ASPIRIN 81 MG ENTERIC TAB PO SCH (08:58)
[2017-03-05 09:10] LABS: ABG BASE EXCESS -0.2 (-2.0-2.0); ABG HCO3 24.8 MEQ/L (22.0-26.0); ABG PARTIAL PRESSURE CO2 41.9 mmHg (35.0-45.0); ABG PARTIAL PRESSURE O2 133.7 mmHg (75.0-100.0); ABG STANDARD HCO3 24.4 MEQ/L (22.0-26.0); ABG TOTAL CO2 26.1 MEQ/L (23.0-31.0)
--- NOTE | 2017-03-05 09:21 | REP ---
Clinical: Status post intubation. Comparison: 03/04/2017. Findings: Endotracheal tube is approximately 1.8 cm from the yanira. Nasogastric tube courses below left hemidiaphragm. Left subclavian catheter with tip in the SVC. Double-lumen venous catheter with tip in the right atrium. Stable cardiomegaly and evidence for pulmonary edema remains unchanged. Findings include perihilar and lower lobe opacities and layering effusions. No pneumothorax. Impression: 1. Endotracheal tube 1.8 cm from the yanira. 2. Stable cardiomegaly and pulmonary edema. Signed by Ezra Hartman MD 03/05/2017 08:41 A
[2017-03-05 10:49] LABS: ABG PARTIAL PRESSURE CO2 49.5 mmHg (35.0-45.0); ABG PARTIAL PRESSURE O2 117.5 mmHg (75.0-100.0); ABG STANDARD HCO3 25.4 MEQ/L (22.0-26.0); ABG TOTAL CO2 28.5 MEQ/L (23.0-31.0); ABG pH (ARTERIAL) 7.355 UNITS (7.350-7.450)
[2017-03-05] MEDS: ALBUTEROL SULFATE 2.5 MG/0.5 ML INH NEB SOLN NEB SCH ×3 (11:30→19:57)
--- NOTE | 2017-03-05 13:20 | IPN ---
DATE: 03/05/2017 Mr. Valadez is seen this morning on his bedside in intensive care unit. He underwent a second hemodialysis treatment yesterday. We removed some fluid and gave him blood transfusion due to severe anemia. He tolerated his dialysis treatment well and had not required any pressors. He has no fever or chills. PHYSICAL EXAMINATION: Temperature 97.7 degrees Fahrenheit, heart rate 80 per minute and respiratory rate 16 per minute. Blood pressure 121/65 mmHg and oxygen saturation 99% on 35% FIO2. Head is atraumatic. Endotracheal tube and orogastric tubes are in place. His neck veins are difficult to be assessed. Heart sounds are irregular in rhythm and distant. Lungs have good bilateral air entry. Abdomen is obese and nontender. Bowel sounds are normal. Extremities have no cyanosis or clubbing. Neurologically, he is resting comfortably and is currently sedated. LABORATORY DATA: Today's labs show WBC count 5.2, hemoglobin 8.2 and hematocrit 25.5. Platelets 160. Sodium 141 and potassium 3.9. BUN 32 and creatinine 2.9. Calcium level 8.0. Blood gas showed a pH of 7.39, pCO2 41.9 and pO2 93. Bicarbonate is 24.4. Today's chest x-ray showed endotracheal tube about 2 cm from the yanira. Stable cardiomegaly and mild pulmonary edema. PROBLEMS: 1. Respiratory failure most likely multifactorial. The patient was dialyzed yesterday and 2 liters fluid was removed. In addition he has been making urine. We will try to diurese him further today with Lasix 100 mg. He is still on the ventilator with plan for weaning him off the ventilator and put him on BiPap later today. 2. Congestive heart failure. Volume status clinically seems much improved. The patient has been responding to diuretic and we will give him Lasix 100 mg intravenously and monitor his response. We can use further diuretic as needed through the day. We do not have a plan to dialyze him today. 3. End-stage renal disease. The patient was dialyzed twice yesterday and day before yesterday. His next dialysis will be scheduled for tomorrow. 4. Anemia. The patient had severe symptomatic anemia. He received 2 units of packed RBCs yesterday. One more unit will be transfused today after a dose of Lasix 100 mg. CBC will be checked again tomorrow. 5. Resuscitation status. At present, the patient is full code and once he gets off the ventilator then he will discuss with his healthcare proxy, and we will also discuss about his wishes. CHUY
--- NOTE | 2017-03-05 13:38 | CCN ---
DATE: 03/05/2017 Mr. Valadez remains critically ill with acute hypoxemic and hypercapnic respiratory failure. No hemodynamic events overnight. He had dialysis yesterday afternoon. Hemoglobin has been relatively stable overnight with no signs of active bleeding. On his sedation holiday today, he indicates no discomfort. He indicates he is getting enough air. He indicates he would like the endotracheal tube out. OBJECTIVE: PHYSICAL EXAMINATION: Mr. Valadez intubated and synchronous with the ventilator. VITAL SIGNS: Temperature 97.7 with a T-max of 98.4, pulse 82, respiratory rate 14, blood pressure 121/65 with an MAP of 83. SpO2 of 99% on FiO2 of 0.35. HEENT: Anicteric, pupils equal, round, and reactive to light (PERRL). Nares patent bilaterally. Moist mucosa. Oropharynx: Endotracheal (ET) tube and orogastric (OG) tube in place. Mildly dry mucosa. NECK: Supple, without thyromegaly or masses. Trachea is midline. Unable to assess JVP secondary to body habitus. LUNGS: Symmetric excursion, good air entry, no significant crackle, wheeze, or rhonchi. Diminished breath sounds at the bases bilaterally. Normal I-to-E. No accessory muscle usage or retractions. CARDIOVASCULAR: Regular rate and rhythm with a normal S1, S2. No murmur, rub, or gallop appreciated. ABDOMEN: Positive bowel sounds, soft, nondistended, does not appear tender, no hepatosplenomegaly or masses appreciated, exam limited by body habitus. EXTREMITIES: Without clubbing or cyanosis, improved edema. Palpable pedal pulses bilaterally. NEURO: Alert and awake. Appears to be responding appropriately to questions. LABORATORY DATA: CBC from this morning showed a hemoglobin of 8.2, hematocrit 25.5, platelet count 160,000, white blood cell count 5200. Chemistries showed a sodium 141, potassium 3.9, chloride 102, bicarbonate 29, anion gap 10, BUN 32, creatinine 2.9, glucose 123, calcium 8.0. Total bilirubin 0.5, AST 21, ALT 23, alkaline phosphatase 58, total protein 5.8, albumin 2.3. Arterial blood gas this morning controlled with a tidal volume of 460, rate of 14, PEEP of 8 with an FiO2 of 0.25 was 7.39/42/134 with a measured saturation 99 % and a base excess of -2. IMPRESSION: 1. Acute hypoxemic and hypercapnic respiratory failure leading to mechanical ventilation. Improved after dialysis with removal of fluid. 2. End-stage renal disease leading to dialysis. 3. Obstructive sleep apnea (MARCELA). 4. Congestive heart failure with an ejection fraction of 30%. 5. Dilated cardiomyopathy. 6. Hypertension. 7. Elevated Troponins this admission that were thought secondary to demand ischemia related to severe heart failure. 8. Possible COPD. Again, spirometric values are not known. RECOMMENDATIONS: 1. Agree with transfusion of packed RBCs. 2. Dialysis is scheduled for tomorrow. He is not anuric and he is receiving Lasix today. 3. Will proceed with a weaning trial. If he is able to be extubated, I will transfer him to an NIMV and wean from that modality to where he would wear it with naps and nocturnally. ADDENDUM: Mr. Valadez underwent a weaning trial consisting of a pressure support of 5 and a PEEP of 8. The PEEP of 8 was simply because of his large chest wall and not because needed it for oxygenation. On these settings, his rapid shallow breathing index was in the 20s to low 40s, predicting success. He was able to increase his tidal volume to over 1400 on demand. Arterial blood gas at this time was 7.36/50/118 with a measured saturation of 99% and a base excess of 1.0. He has a good cough. It was felt reasonable to extubate him to NIMV. He was successfully extubated and is now resting comfortably on NIMV. CRITICAL CARE TIME: 35 minutes, not including procedure time. CHUY
[2017-03-05] MEDS ORDERED: GLUCAGON FOR INJ 1 MG VIAL (J1610) SC PRN (16:00)
[2017-03-05] MEDS ORDERED: GLUCOSE 4 GM CHEW TABLET PO PRN (16:00)
[2017-03-05] MEDS ORDERED: DEXTROSE 50% 50 ML SYRINGE IV PRN (16:00)
[2017-03-05] MEDS: HumaLOG INSULIN (NovoLOG) PER UNIT SC SCH (18:00)
[2017-03-05] MEDS: CARVedilol 3.125 MG TAB PO SCH (21:00)
[2017-03-05] MEDS: PALIPERIDONE 3 MG ER TAB (INVEGA) PO SCH (21:00)
[2017-03-05] MEDS: ACETAMINOPHEN 650 MG SUPP PR PRN (23:01)
[2017-03-06] VITALS (10 sets, daily range): BP systolic 121–169; BP diastolic 57–82
[2017-03-06] MEDS: HEPARIN SOD (PORCINE) 5000 UNITS/ML VIAL SC SCH ×3 (05:36→23:01)
[2017-03-06] MEDS: HumaLOG INSULIN (NovoLOG) PER UNIT SC SCH ×4 (05:40→17:26)
[2017-03-06 05:44] LABS: MEAN CORPUSCULAR VOLUME 93.7 fl (80.0-96.0); PLATELET COUNT, AUTOMATED 158 10^3/uL (150-450); WHITE BLOOD COUNT 5.7 10^3/uL (4.0-10.0)
[2017-03-06 06:11] LABS: ALBUMIN 2.3 GM/DL (3.2-5.2); ALBUMIN/GLOBULIN RATIO 0.62 (1.00-1.93); BILIRUBIN,TOTAL 0.7 MG/DL (0.2-1.0); CALCIUM LEVEL 8.3 MG/DL (8.8-10.2); CREATININE FOR GFR 3.71 MG/DL (0.70-1.30); GLOMERULAR FILTRATION RATE 17.9 (>49); POTASSIUM SERUM 4.2 MEQ/L (3.5-5.1)
[2017-03-06] MEDS: ALBUTEROL SULFATE 2.5 MG/0.5 ML INH NEB SOLN NEB SCH ×4 (08:08→20:00)
--- NOTE | 2017-03-06 08:18 | REP ---
Clinical: Intubation. Comparison: 03/05/2017. Findings: Endotracheal tube and nasogastric tube have been removed. A double-lumen central venous catheter with tip in the right atrium remain stable. Left subclavian catheter with tip in the SVC. Cardiac silhouette is unchanged. Mild pulmonary vascular congestion cannot be excluded. No focal consolidation, effusion, or pneumothorax. Impression: 1. Nasogastric tube and endotracheal tube have been removed. 2. No focal consolidation. Signed by Ezra Hartman MD 03/06/2017 08:10 A
[2017-03-06] MEDS: CALCIUM CARBONATE 500 MG CHEW U/D PO SCH ×3 (09:00→20:48)
[2017-03-06] MEDS: OXcarbazepine 300 MG TAB PO SCH ×2 (09:00→20:48)
[2017-03-06] MEDS: ATORVASTATIN 20 MG TAB PO SCH (09:00)
[2017-03-06] MEDS: CARVedilol 3.125 MG TAB PO SCH ×2 (09:00→20:46)
[2017-03-06] MEDS: ASPIRIN 81 MG ENTERIC TAB PO SCH (09:00)
[2017-03-06] MEDS: VENLAFAXINE **XR** 75MG CAPSULE PO SCH (09:00)
[2017-03-06] MEDS: PANTOPRAZOLE 40MG INJ (PROTONIX) (C9113) IV SCH (09:27)
--- NOTE | 2017-03-06 10:50 | CCN ---
DATE: 03/06/2017 Mr. Valadez is doing much better today. He was extubated successfully yesterday and put on noninvasive positive pressure ventilation with BiPAP. He had no events on telemetry overnight. Dr. Duron gave the patient 100 mg of Lasix yesterday for diuresis. According to nursing, dialysis for today is on hold. Hemoglobin has been stable overnight and has actually increased. There are no signs of active bleeding. Today, he is alert and talking with both myself, nursing, and respiratory therapy. He states that he has not had anything to eat or drink since his admission and would like a cup of coffee. He is voicing fears or whether or not he will survive this hospitalization, as well as complaining of dysuria today. He states that he is breathing better, and is not in any pain. He is able to cough off of BiPAP. He is able to clear his own secretions. OBJECTIVE: VITAL SIGNS: Temperature 99.1, pulse 63 and regular, respiratory rate 19 and unlabored. Blood pressure 169/81 with a MAP of 110, 95% on BiPAP with an FiO2 of 30, 94% on room air after 7 to 9 minutes. GENERAL: Mr. Valadez is alert and talking. He has been talking with nursing and respiratory for 7 to 9 minutes and saturating 94% on room air. He is in no acute distress. HEENT: Anicteric. Pupils are equal, round and reactive to light. Nares are patent bilaterally. Moist mucosa. NECK: Supple without thyromegaly or masses. Jugular venous distention (JVD) unable to be appreciated secondary to body habitus, but trachea is felt to be midline on palpation. LUNGS: No significant crackles. Mild expiratory wheezes. Diminished breath sounds at the bases bilaterally. Inspiratory phase is equal to expiratory phase. No accessory muscle usage or retractions. CARDIOVASCULAR: Regular rate and rhythm. The patient is in normal sinus. No murmurs, rubs or gallops appreciated. ABDOMEN: Morbidly obese. Positive bowel sounds. Soft and nondistended. Nontender to palpation. EXTREMITIES: No clubbing or cyanosis. There is still some pitting edema in his lower extremities bilaterally that is improved from yesterday's examination. Palpable pedal pulses bilaterally. He does have some puffiness in his upper extremities, especially in the hands. NEUROLOGIC: Awake, alert. Responding appropriately to questions. Is able to move his extremities when asked. LABORATORY DATA: CBC from this morning showed hemoglobin of 9.1 (increased from 8.2 yesterday), hematocrit 28.4, platelet count 158,000. White blood cell count 5,700. Chemistry showed a sodium of 145, potassium 4.2, chloride 107, bicarbonate 29, anion gap 9, BUN 39, creatinine 3.71, glucose 124, calcium 8.3, total bilirubin 0.7, AST 13, ALT 18, alkaline phosphatase is 58, total protein 6.0, albumin 2.3. There is no arterial blood gas this morning. BiPAP settings are tidal volume between 350 to 450, backup rate of 8 with an FiO2 of 0.30. IMPRESSION: 1. Acute hypoxemic and hypercapnic respiratory failure leading to mechanical ventilation. The patient is now extubated and on noninvasive positive pressure ventilation. His status has improved. 2. End stage renal disease leading to dialysis. Dr. Duron has his dialysis on hold for this morning, he will dialyze the patient tomorrow. 3. Dysuria. The patient is complaining of burning with urination. Nursing did report some cloudiness to his urine overnight. 4. Anemia of chronic disease. Hemoglobin is stable at 9.1, increased from 8.2 yesterday. RECOMMENDATIONS: 1. We will be doing a trial off of BiPAP for 2 hours around mealtime, as the patient's oxygen saturation off of BiPAP this morning was 94% on room air. 2. I have ordered a urinalysis and urine culture for his dysuria. 3. The patient has not received nutrition since his admission when he was made nothing by mouth after choking on a sip of water. I have ordered swallow evaluation with speech therapy. 4. Due to intubation and the fact that the patient has been relatively immobile , I have ordered a physical therapy (PT) evaluation and treatment to get the patient up and out of bed. 5. As the patient is no longer requiring mechanical ventilation, the patient will be transferred back to Dr. Sorto's service. We are more than happy to stay on as consultants for the patient's BiPAP settings. ADDENDUM: Mr. Valadez was unable to pass his swallow evaluation. As he has not had any nutrition since admission, we will be obtaining a PICC line for him and Speech Therapy will re-evaluate him on Thursday. Dr. Duron will be managing the patient's TPN. My faculty preceptor for this patient encounter was physically present during the encounter and was fully available. All aspects of the patient interview, examination, medical decision making process, and medical care plan development were reviewed and approved by the faculty preceptor. The faculty preceptor is aware and concurs with the plan as stated in the body of this note and will attest to such by his/her co-signature. I, Robert Wolf, was present and performed an independent history and physical. The case was discussed with the resident and I agree with the assessment and plan as outlined above. CHUY
[2017-03-06] MEDS ORDERED: FUROSEMIDE 100 MG/10 ML VIAL (J1940) IV ONE (11:00)
[2017-03-06 11:04] LABS: MAGNESIUM LEVEL 2.2 MG/DL (1.8-2.4); PHOSPHORUS LEVEL 5.8 MG/DL (2.5-4.9)
--- NOTE | 2017-03-06 15:55 | ECGEPIP ---
Stationary ECG Study [facility] Test Date: 2017-03-06 Pat Name: AIDA SAMAYOA Department: Room: [place] [address] Gender: M Process Steward: DARCI : 1955 Requested By: YASMEEN ROMERO Order Number: [id number] Reading MD: Katheryn Bhatti Measurements Intervals [place] Rate: 55 P: 74 WY: 298 QRS: 17 QRSD: 112 T: 23 QT: 423 QTc: 406 Interpretive Statements SINUS BRADYCARDIA WITH BIG FIRST DEGREE AV BLOCK MODERATE INTRAVENTRICULAR CONDUCTION DELAY ST T-WAVE ABNORMALITY W[place] SLIGHTLY LONGER C/W 03/02/17 Electronically Signed On 03-06-2017 15:54:53 EST by Katheryn Bhatti
[2017-03-06] MEDS ORDERED: SLF 3 ML SYR IV PRN (17:00)
[2017-03-06] MEDS ORDERED: [UNRECOGNIZED DRUG - OTHER] IV SCH ×7 (18:00)
[2017-03-06] MEDS ORDERED: SODIUM ACETATE IV SCH ×7 (18:00)
[2017-03-06] MEDS ORDERED: SODIUM CHLORIDE IV SCH ×7 (18:00)
[2017-03-06] MEDS ORDERED: FAT EMULSION IV 20% 500 ML IV SCH (18:00)
[2017-03-06] MEDS ORDERED: SODIUM CHLORIDE 0.9% INJ 10 ML SYR IV PRN (18:00)
[2017-03-06] MEDS: SODIUM CHLORIDE 0.9% INJ 10 ML SYR IV SCH (18:32)
[2017-03-06] MEDS: PALIPERIDONE 3 MG ER TAB (INVEGA) PO SCH (20:48)
--- NOTE | 2017-03-06 21:56 | IPN ---
DATE: 03/06/2017 SUBJECTIVE: Mr. Valadez is seen this morning on his bedside in intensive care unit. He is currently off bilevel positive airway pressure (BiPAP) and has been able to talk and answer questions. He is not in any acute distress at present. He was on the BiPAP through the night. However, currently he is not even on any oxygen and oxygenating at 93%. Yesterday, we gave him two doses of Lasix 100 mg each and he diuresed about two liters. He also received one more unit of packed red blood cells (RBCs). PHYSICAL EXAMINATION: The patient is awake, answering questions and not in any acute distress. Temperature is 98.3 degrees Fahrenheit, heart rate 60 per minute and respiratory rate 22 per minute. Blood pressure 143/72 mmHg and oxygen saturation 93%. His head is atraumatic. Pupils equal and reactive to light and sclerae are anicteric. There is no oral thrush or ulcers. Neck veins are difficult to be assessed. He has a left subclavian triple-lumen catheter and right internal jugular vein hemodialysis catheter in place. His heart sounds are regular and distant. Lungs have moderate bilateral air entry. I am unable to hear any rales. Abdomen is obese, soft and nontender. Extremities without cyanosis or clubbing. Skin is dry and without any rash or ulcers. Neurologically he is awake, alert and at his baseline mentation. Intake and output records from yesterday showed total intake 530 and output 2015 mL. LABORATORY DATA: Today's labs show WBC count 5.7, hemoglobin 9.1 and hematocrit 28.4. Platelets 158. Sodium 145, potassium 4.2. BUN 39 and creatinine 3.71. PROBLEMS: 1. Respiratory failure. The patient has improved and successfully extubated. He was on the BiPAP through the night and is currently oxygenating well on room air. His volume status seems to be reasonably well compensated. We will give him one dose of Lasix 100 mg today and try to achieve a mild negative fluid balance of about one liter. His oral intake remains zero. He just failed his swallowing evaluation. 2. End-stage renal disease. The patient has been dialyzed twice and we will plan to dialyze him again tomorrow. At this point, there is no emergent need for dialysis today. His electrolytes are all within normal range and he responds to diuretics with reasonably well compensated volume status. 3. Anemia. His anemia has also improved after transfusion of three units of packed RBCs. There is no active bleeding noted and we will continue to monitor complete blood count (CBC) on daily basis. 4. Nutrition. The patient is unable to swallow properly and has had problems even in the past. We will start total parenteral nutrition (TPN) for now and TPN orders are being written. The patient is going to have reevaluation on Thursday for swallowing.
[2017-03-06] MEDS: SLF 3 ML SYR IV SCH (22:00)
[2017-03-07] VITALS (14 sets, daily range): BP systolic 141–196; BP diastolic 64–94; O2SAT 97
[2017-03-07 00:09] LABS: HBVCOREDIFF1 Negative (Negative); HBVCOREDIFF2 Negative (Negative)
[2017-03-07] MEDS: HumaLOG INSULIN (NovoLOG) PER UNIT SC SCH ×4 (00:16→17:21)
[2017-03-07] MEDS ORDERED: hydrALAZINE INJ 20 MG/ML VIAL IV ONE (05:30)
[2017-03-07] MEDS: SLF 3 ML SYR IV SCH ×3 (06:00→19:56)
[2017-03-07] MEDS: HEPARIN SOD (PORCINE) 5000 UNITS/ML VIAL SC SCH ×3 (06:07→22:42)
[2017-03-07] MEDS: SODIUM CHLORIDE 0.9% INJ 10 ML SYR IV SCH ×2 (06:07→18:00)
[2017-03-07 06:20] LABS: MEAN CORPUSCULAR HGB CONC 32.1 g/dl (32.0-36.5); MEAN CORPUSCULAR VOLUME 96.5 fl (80.0-96.0); PLATELET COUNT, AUTOMATED 161 10^3/uL (150-450); RED CELL DISTRIBUTION WIDTH 17.9 % (11.5-14.5); WHITE BLOOD COUNT 6.6 10^3/uL (4.0-10.0)
[2017-03-07 07:37] LABS: ALBUMIN 2.5 GM/DL (3.2-5.2); ALBUMIN/GLOBULIN RATIO 0.66 (1.00-1.93); BILIRUBIN,TOTAL 0.5 MG/DL (0.2-1.0); CREATININE FOR GFR 3.89 MG/DL (0.70-1.30); GLOMERULAR FILTRATION RATE 16.9 (>49); TOTAL PROTEIN 6.3 GM/DL (6.4-8.2)
[2017-03-07] MEDS: ALBUTEROL SULFATE 2.5 MG/0.5 ML INH NEB SOLN NEB SCH ×4 (08:00→20:21)
[2017-03-07] MEDS: ATORVASTATIN 20 MG TAB PO SCH (08:18)
[2017-03-07] MEDS: ASPIRIN 81 MG ENTERIC TAB PO SCH (08:18)
[2017-03-07] MEDS: VENLAFAXINE **XR** 75MG CAPSULE PO SCH (08:18)
[2017-03-07] MEDS: CARVedilol 3.125 MG TAB PO SCH ×2 (08:18→19:55)
[2017-03-07] MEDS: CALCIUM CARBONATE 500 MG CHEW U/D PO SCH ×3 (08:19→19:56)
[2017-03-07] MEDS: OXcarbazepine 300 MG TAB PO SCH ×2 (08:19→19:55)
--- NOTE | 2017-03-07 08:32 | REP ---
Chest one-view HISTORY: Intubation Comparison: 03/06/2017 Interstitial markings are present in the lungs that are unchanged compared to the previous study. The cardiac silhouette is enlarged. The pulmonary vasculature is prominent. A double-lumen catheter is present in the right atrium. A PICC line is present in the superior vena cava. Impression: Interstitial edema unchanged compared to the previous study. Signed by Pradeep Jacques MD 03/07/2017 08:23 A
[2017-03-07] MEDS: PANTOPRAZOLE 40MG INJ (PROTONIX) (C9113) IV SCH (09:59)
[2017-03-07] MEDS: hydrALAZINE INJ 20 MG/ML VIAL IV SCH ×2 (12:25→17:59)
[2017-03-07] MEDS ORDERED: HEPARIN 1,000 UNITS/ML 10ML VIAL (FOR RADIOLOGY& DIALYSIS ONLY) XX ONE (14:00)
[2017-03-07] MEDS ORDERED: HEPARIN 1,000 UNITS/ML 10ML VIAL (FOR RADIOLOGY& DIALYSIS ONLY) IV ONE (14:00)
[2017-03-07] MEDS ORDERED: [UNRECOGNIZED DRUG - OTHER] IV SCH ×5 (18:00)
[2017-03-07] MEDS ORDERED: SODIUM ACETATE IV SCH ×5 (18:00)
[2017-03-07] MEDS ORDERED: FAT EMULSION IV 20% 500 ML IV SCH (18:00)
[2017-03-07] MEDS ORDERED: SODIUM CHLORIDE IV SCH ×5 (18:00)
[2017-03-07] MEDS: PALIPERIDONE 3 MG ER TAB (INVEGA) PO SCH (19:55)
--- NOTE | 2017-03-07 20:23 | IPN ---
DATE: 03/07/2017 SUBJECTIVE: The patient is seen this morning in the intensive care unit (ICU) at bedside receiving hemodialysis. He denies any acute complaints. He is intermittently off of bilevel positive airway pressure (BIPAP). In no acute distress. Able to speak in full sentences and is answering questions appropriately. His urine output over the past 24 hours was just shy of 2 liters in response to IV Lasix. His goal ultrafiltration with dialysis today is approximately 2 kg. He remains on TPN. PHYSICAL EXAMINATION: The patient is seen in the intensive care unit (ICU) on hemodialysis and in no acute distress. Awake, alert, conversational and answering questions appropriately. Temperature 98.3, pulse 72, respiratory rate 24. Blood pressure, systolic ranging from 165 to 196, diastolic 79 to 94, saturating 98% intermittently on BiPAP. Intake and output: Urine output yesterday 1970 mL, net negative 1.5 liter fluid balance. GENERAL: The patient is in bed. Head is atraumatic. Pupils are round and reactive to light. Oral mucosa is moist. Neck veins are difficult to assess. He has a right subclavian dialysis catheter in place. CARDIAC: Distant and regular. S1, S2. LUNGS: Bilateral air entry. Auscultation did not reveal any basilar rales or crackles. ABDOMEN: Soft, obese, nontender. EXTREMITIES: Without cyanosis or clubbing or significant leg edema. SKIN: No rash or ulcer. NEUROLOGIC: He is awake, alert and at his baseline mentation. PSYCHIATRIC: He is tearful and depressed. LABORATORY DATA: White count 6.6, hemoglobin 9.8, platelets 161. Sodium 146, potassium 4, bicarbonate 29, BUN 46, glucose 209, corrected calcium 9.2. IMAGING: Chest x-ray on 03/07/2017 showed interstitial edema, unchanged from prior. INPATIENT MEDICATIONS: The patient continues on TPN and fat emulsions He has received pushes of hydralazine 10 mg IV and is started on hydralazine 10 mg IV every 6 hours. His other medications are unchanged from prior. PROBLEMS: 1. End stage renal disease. The patient is receiving his third hemodialysis treatment today with a goal ultrafiltration of 2000 mL. He has also responded favorably to diuresis with IV Lasix. His volume status is fairly compensated at present. 2. Hypernatremia. Likely secondary to TPN and diuresis. His electrolyte mix has been adjusted with a decrease in sodium content in his TPN. 3. Respiratory failure. The patient remains intermittently on BiPAP. We aim to keep his volume status toward the dry side. At present, he seems to be reasonably well compensated. Dialysis ultrafiltration goal today is about 2000 mL and given his elevated systolic blood pressure, we may be able to take a little more fluid off. 4. Nutrition. The patient failed his swallow evaluation and is currently on TPN. I have reduced the sodium content in his TPN. 5. Morbid obesity complicating his care. 6. Deconditioning. Physical therapy (PT) to see the patient. AKILAD
[2017-03-08] VITALS (11 sets, daily range): BP systolic 123–162; BP diastolic 57–75; O2SAT 96–99
[2017-03-08] MEDS: HumaLOG INSULIN (NovoLOG) PER UNIT SC SCH ×4 (00:42→17:53)
[2017-03-08] MEDS: hydrALAZINE INJ 20 MG/ML VIAL IV SCH ×4 (05:09→17:53)
[2017-03-08] MEDS: HEPARIN SOD (PORCINE) 5000 UNITS/ML VIAL SC SCH ×3 (05:09→22:36)
[2017-03-08] MEDS: SLF 3 ML SYR IV SCH ×3 (05:10→22:37)
[2017-03-08] MEDS: SODIUM CHLORIDE 0.9% INJ 10 ML SYR IV SCH ×2 (05:10→17:52)
[2017-03-08 05:28] LABS: MEAN CORPUSCULAR HEMOGLOBIN 30.4 pg (27.0-33.0); MEAN CORPUSCULAR HGB CONC 31.7 g/dl (32.0-36.5); MEAN CORPUSCULAR VOLUME 96.2 fl (80.0-96.0); PLATELET COUNT, AUTOMATED 160 10^3/uL (150-450); RED CELL DISTRIBUTION WIDTH 17.9 % (11.5-14.5)
[2017-03-08 06:02] LABS: ALBUMIN 2.3 GM/DL (3.2-5.2); ALBUMIN/GLOBULIN RATIO 0.62 (1.00-1.93); BILIRUBIN,TOTAL 0.5 MG/DL (0.2-1.0); CREATININE FOR GFR 3.02 MG/DL (0.70-1.30); GLOMERULAR FILTRATION RATE 22.7 (>49); POTASSIUM SERUM 3.8 MEQ/L (3.5-5.1)
[2017-03-08] MEDS: ALBUTEROL SULFATE 2.5 MG/0.5 ML INH NEB SOLN NEB SCH ×4 (07:45→19:54)
--- NOTE | 2017-03-08 08:38 | REP ---
Chest one-view HISTORY: Intubation Comparison: 03/07/2017 Interstitial markings are present in the lungs unchanged compared to the previous study. The cardiac silhouette is enlarged. The pulmonary vasculature is normal in appearance. A double-lumen catheter is present in the right atrium. A PICC line is present in the superior vena cava. Impression: Interstitial edema unchanged compared to the previous study. Signed by Pradeep Jacques MD 03/08/2017 08:29 A
[2017-03-08] MEDS: ATORVASTATIN 20 MG TAB PO SCH (09:00)
--- NOTE | 2017-03-08 09:06 | IPN ---
DATE OF EXAMINATION: 03/07/2017 SUBJECTIVE: Patient tells me that he is frustrated that he cannot eat. He wants to eat food. He has not eaten for several days. He denies fevers. He tells me he is breathing easily. He denies shortness of breath. OBJECTIVE: VITAL SIGNS: Temperature 98.3. Pulse 72. Respiratory rate 24. Blood pressure (BP) 196./94. Oxygen saturation 98% on full face bilevel positive airway pressure (BiPAP), 30% FiO2. In general, he is morbidly obese, man, laying in bed at a 30 degree angle. He does not appear to be in acute distress. He is awake, alert and oriented and conversant. HEENT: He is disheveled, conversant. Moist mucous membranes. Difficult to assess for elevation of central venous pressure (CVP). CARDIOVASCULAR EXAM: S1, S2, regular. RESPIRATORY EXAM: Diminished and distant secondary to body habitus. Cardiovascular exam grossly obese. EXTREMITIES: No clubbing, cyanosis or appreciable edema. He has a Borrero catheter in place. He has a central venous catheter in place. LABORATORY STUDIES: WBC 6.7, hemoglobin 9.8, platelet count 161. Chemistry panel: Sodium 146, potassium 4.0, chloride 109, bicarbonate 29, BUN 46, creatinine 3.8. MICROBIOLOGY: Sputum is positive for MRSA but otherwise, urine culture is pending. The urine culture on 03/01/2017 is negative. Blood culture from 03/01/2017 is negative. IMAGING: The patient had a chest x-ray this morning that revealed interstitial edema unchanged from previous study. ASSESSMENT AND PLAN: This is a 62-year-old man with decompensated combined diastolic/systolic congestive heart failure in the setting of end-stage renal disease. PROBLEMS: 1. Acute on chronic systolic/diastolic congestive heart failure in the setting of progressive renal disease. Patient was started on hemodialysis. Nephrology's help has been greatly appreciated. The patient is undergoing hemodialysis in addition to diuretics to help reduce his volume status. He is improved at this time but still appears to be in respiratory failure. 2. End-stage renal disease on hemodialysis. Nephrology's help is greatly appreciated. 3. Anemia. Hemoglobin is actually 6.3. He has had 3 units of packed red blood cells (PRBC). Hemoglobin has remained stable. Once again, nephrology's help is appreciated. We are continuing to diuresis him and remove excess fluid that had been replaced on him. 4. Respiratory failure. He is currently requiring noninvasive mechanical ventilation. He was recently extubated. He does not tolerate being off BiPAP for any significant length of time, and as such, I will maintain him in the intensive care unit until he is able to remain off of it. 5. Suspected chronic obstructive pulmonary disease (COPD). He is maintained on nebulizer treatments. No spirometry is on record. He has been extubated. Pulmonary's help is once again appreciated. 6. Depression and schizophrenia. He is normally on Trileptal, Effexor and Invega. However, at the present time, he is not been able to pass a swallow evaluation. He did have choking with sips of water, and as such, he is nothing by mouth and has been started on total parenteral nutrition (TPN). He is on gastrointestinal (GI) prophylaxis. 7. Hypertension. He is hypertensive at this time. I will start him on hydralazine IV every 6 hours while he is not able to tolerate medications by mouth. I would titrate as needed. 8. Abnormal troponin likely secondary to demand ischemia. Will continue to monitor and would likely benefit from outpatient ischemic workup. 9. Dyslipidemia. He is normally on a statin. He is currently nothing by mouth, including medications. 10. Diabetes. He is on fingersticks and sliding scale every 6 hours while he is on TPN. 11. Deep venous thrombosis (DVT) prophylaxis. Patient is on heparin every 8. 12. Fever. He had a one time episode shortly after a blood transfusion. He has had no further episodes. Cultures have been all negative thus far. He is not on any antibiotics.
[2017-03-08] MEDS: VENLAFAXINE **XR** 75MG CAPSULE PO SCH (10:16)
[2017-03-08] MEDS: ASPIRIN 81 MG ENTERIC TAB PO SCH (10:16)
[2017-03-08] MEDS: CARVedilol 3.125 MG TAB PO SCH ×2 (10:17→20:51)
[2017-03-08] MEDS: OXcarbazepine 300 MG TAB PO SCH ×2 (10:17→20:51)
[2017-03-08] MEDS: CALCIUM CARBONATE 500 MG CHEW U/D PO SCH ×3 (10:17→20:52)
[2017-03-08] MEDS: PANTOPRAZOLE 40MG INJ (PROTONIX) (C9113) IV SCH (10:17)
--- NOTE | 2017-03-08 11:24 | IPN ---
DATE OF EXAMINATION: 03/08/2017 SUBJECTIVE: This morning the patient tells me that he is feeling better, that his breathing is more easy. He tells me that he really would like to eat and drink. He really wants a cup of coffee. He also tells me that he misses all of his friends at his [facility]. Otherwise, he has no other specific complaints. No chest pressure, lightheadedness, dizziness, fever or chills. OBJECTIVE: VITAL SIGNS: Temperature 98.4. Pulse 85. Respiratory rate 20. Blood pressure 141/70. Oxygen saturation 96% on full face bilevel positive airway pressure (BiPAP) 30%. In general, he is super morbidly obese, man, laying flat in bed. He does not appear to be in acute distress. HEENT: He is disheveled. He has dry mucous membranes. Difficult to assess for any elevation of central venous pressure. CARDIOVASCULAR EXAM: S1, S2. He is not tachycardic. RESPIRATORY EXAM: Is distant secondary to body habitus. ABDOMINAL EXAM: Bowel sounds present. The abdomen is soft and obese. EXTREMITIES: There is no clubbing, cyanosis or appreciable edema. LABORATORY STUDIES: WBC 8.0. Hemoglobin 9.5, stable. Platelet count 160. Chemistry panel: Sodium 142, potassium 3.8, chloride 106, bicarbonate 30, BUN 32 creatinine 3.2. MICROBIOLOGY: Urine culture is positive for Proteus mirabilis. Sputum is positive for MRSA. Blood cultures are negative and a previous urine culture was negative, which was not a catheterized specimen. IMAGING: He has a chest x-ray, which is unchanged. ASSESSMENT AND PLAN: This is a 62-year-old man with decompensated combined diastolic/systolic congestive heart failure in the setting of end-stage renal disease. PROBLEMS: 1. Acute on chronic systolic/diastolic congestive heart failure in the setting of progressive renal disease. Nephrology's help is greatly appreciated. He has been started on hemodialysis. He did undergoing dialysis yesterday with more fluid removal. His volume status does appear to be more optimized. He was able to tolerate being off his BiPAP for muc of the day, but is still not on his home continuous positive airway pressure (CPAP) at night and still has some degree of respiratory failure. I did speak with the nursing staff today. We will try him on nasal cannula as much as possible today. I have also encouraged him to get up out of bed, work with physical therapy, sit in a chair. When more awake, could consider trying oral medications with some applesauce as the patient does wish to eat. He does appear to be progressing daily, although slow progress. 2. End-stage renal disease, now on hemodialysis. Nephrology's help is greatly appreciated. They have been planning to start him on hemodialysis on the outpatient setting. He has now been started. 3. Anemia. He is status post 3 units of packed red blood cells (PRBC) at the time of his admission and his hemoglobin and hematocrit remains stable. Nephrology's help is appreciated. 4. Suspected chronic obstructive pulmonary disease (COPD). Continue with nebulizer treatments. No spirometry is on record. He has been extubated. Pulmonary's continued help for BiPAP management is appreciated. 5. Depression and schizophrenia. He is normally on Trileptal and Effexor as well as Invega. However, he has not been able to pass a swallow evaluation and at this time he is at risk for choking. He has been started on total parenteral nutrition (TPN) and he is continued on gastrointestinal (GI) prophylaxis. We will attempt to give him some medications by mouth this afternoon when he is more awake and see how he does. 6. Hypertension. He is currently on hydralazine IV every 6 hours as he is not able to tolerate medications by mouth. Would like to transition back to his home Coreg when he is able to. 7. Abnormal troponin likely related to demand ischemia. Will continue to monitor and he will likely benefit from an outpatient ischemic workup. Cardiology's help is appreciated. 8. Dyslipidemia. He is on a statin, but he is currently nothing by mouth. 9. Diabetes. He is on fingersticks every 6 hours while on TPN. 10. Fever, one time episode related to blood transfusion. He does have an abnormal urinalysis (UA) and abnormal sputum. However, he has not been on antibiotics and he continues to improve. He does not have leukocytosis or tachycardia or evidence of sepsis. As such, at this time, we will discontinue the Borrero catheter and continue to monitor. 11. Deep venous thrombosis (DVT) prophylaxis. He is on heparin. DISPOSITION: The patient continues to require BiPAP not of his home CPAP settings and requires intensive care monitoring. [facility]
--- NOTE | 2017-03-08 12:41 | REP ---
Procedure: PICC line insertion with Site-Ritcristino The procedure was performed under the direct supervision of Dr. Huynh. The risks and benefits of the procedure were explained to the patient and informed consent was obtained. The procedure was performed in the ICU at the bedside. The right basilic vein was localized using ultrasound guidance. The skin was prepped and draped in a sterile fashion. 2% lidocaine was used as a local anesthetic. Using ultrasound guidance the basilic vein was cannulated and a 0.018 guidewire was inserted. The needle was removed and a 5.5 Wolof dilator and peel-away sheath was inserted over the guide wire. A 5.5 Wolof dual lumen catheter was cut to length of 43 cm. The dilator was removed and the catheter was inserted over the guide wire. A portable chest x-ray was performed and a image demonstrates the tip of the catheter to be in the SVC. The peel-away sheath was removed and the catheter was flushed with heparinized saline as per Hospital protocol. The catheter was affixed to the skin and a sterile dressing was applied. The the patient tolerated the procedure well and there were no immediate complications. Reviewed by RUTH ANN Eden 03/06/2017 05:58 PSigned by Scott Huynh MD 03/08/2017 12:31 P
[2017-03-08] MEDS ORDERED: SODIUM CHLORIDE IV SCH ×5 (18:00)
[2017-03-08] MEDS ORDERED: SODIUM ACETATE IV SCH ×5 (18:00)
[2017-03-08] MEDS ORDERED: FAT EMULSION IV 20% 500 ML IV SCH (18:00)
[2017-03-08] MEDS ORDERED: [UNRECOGNIZED DRUG - OTHER] IV SCH ×5 (18:00)
[2017-03-08] MEDS: PALIPERIDONE 3 MG ER TAB (INVEGA) PO SCH (20:51)
[2017-03-09] VITALS (7 sets, daily range): BP systolic 120–166; BP diastolic 56–87
[2017-03-09] MEDS: HumaLOG INSULIN (NovoLOG) PER UNIT SC SCH ×4 (00:07→18:27)
--- NOTE | 2017-03-09 03:50 | IPN ---
DATE OF SERVICE: 03/08/2017 SUBJECTIVE: The patient is seen this morning in the intensive care unit. He is out of bed to the chair. He is on nasal cannula. He states he feels much better as compared to prior. He would really like to start on an oral diet. He attempted to have a cup of coffee this morning, but per the nursing staff, he had some trouble with swallowing. However, he was able to take his medications. At present, he continues on total parenteral nutrition (TPN). He had hemodialysis yesterday with 4000 mL ultrafiltration and he tolerated it well. VITAL SIGNS: Temperature 98.2, pulse 87, respiratory rate 20, blood pressure systolic ranging from 141-162, diastolic 70-74, saturating 96% on 2 liters nasal cannula. Intake and output: Intake 2160, output 5125, of which 4000 mL was hemodialysis removed ultrafiltration and 1125 was his urine output in a net negative balance of 2965. PHYSICAL EXAMINATION: General: The patient is seen sitting out of bed to the chair. He is in good spirits, seen on nasal cannula in no acute respiratory distress. Head and neck: Extraocular muscles are intact. The oral mucosa is moist. It is difficult to assess his neck veins. Cardiac: S1, S2, regular rate. 2+ radial pulse. There is no appreciable edema in the lower extremities. Lungs: He is comfortable on nasal cannula. There is distant symmetric air entry. Abdomen is soft, obese, nontender with significant pannus. The extremities are without clubbing or edema. He has a right internal jugular (IJ) PermaCath present. Neurologic: He is at his baseline mentation. Psychiatric: Appropriate mood and affect. LABORATORIES: White count 8.0, hemoglobin 9.5, platelets 160. Sodium 142, potassium 3.8, bicarbonate 30, corrected calcium 9.3, glucose 237. IMAGING: Chest x-ray today interstitial edema, unchanged from prior. INPATIENT MEDICATIONS: The patient continues on TPN at 70 mL/h. His other medications are unchanged from prior. PROBLEMS: 1. End-stage renal disease. The patient tolerated 4 kg ultrafiltration yesterday with hemodialysis. He also has pretty good residual renal function with urine output of about 1-2 liters daily. His volume status is well compensated at present. He will be set up for chronic hemodialysis in the outpatient unit. I plan to dialyze him again tomorrow, 03/09, in view of his respiratory status. 2. Acute on chronic combined congestive heart failure in the setting of advanced chronic kidney disease. Volume status now to be regulated through hemodialysis. The patient is now intermittently off of bilevel positive airway pressure (BiPAP), was seen comfortable on nasal cannula. As he does have significant intake considering that he is on TPN, I do plan to dialyze him tomorrow, 03/09, for maintenance of his volume status. 3. Anemia. The patient's hemoglobin has been fairly stable the past 3 days. Goal hemoglobin in end-stage renal disease is 10-11. I will check his iron stores and start him on Aranesp as appropriate. 4. Hypertension. The patient's blood pressures are a little on the high side. He continues on Coreg and hydralazine pushes. Overall, his blood pressure has improved with ultrafiltration and volume correction. 5. Nutrition. The patient is pending a swallow evaluation and continues on TPN at this time. 6. Plan of care is discussed with Dr. Sorto.
[2017-03-09] MEDS: SLF 3 ML SYR IV SCH ×3 (06:00→21:27)
[2017-03-09] MEDS: hydrALAZINE INJ 20 MG/ML VIAL IV SCH ×4 (06:00→17:59)
[2017-03-09] MEDS: HEPARIN SOD (PORCINE) 5000 UNITS/ML VIAL SC SCH ×3 (06:00→21:26)
[2017-03-09] MEDS: SODIUM CHLORIDE 0.9% INJ 10 ML SYR IV SCH ×2 (06:01→18:27)
[2017-03-09 06:26] LABS: MEAN CORPUSCULAR HEMOGLOBIN 30.4 pg (27.0-33.0); PLATELET COUNT, AUTOMATED 162 10^3/uL (150-450); RED CELL DISTRIBUTION WIDTH 17.7 % (11.5-14.5); WHITE BLOOD COUNT 6.6 10^3/uL (4.0-10.0)
[2017-03-09 06:59] LABS: ALBUMIN 2.3 GM/DL (3.2-5.2); ALBUMIN/GLOBULIN RATIO 0.64 (1.00-1.93); BILIRUBIN,TOTAL 0.4 MG/DL (0.2-1.0); CREATININE FOR GFR 3.68 MG/DL (0.70-1.30); PERCENT SATURATION 22.8 % (19.7-50.0); POTASSIUM SERUM 3.9 MEQ/L (3.5-5.1); TOTAL PROTEIN 5.9 GM/DL (6.4-8.2)
[2017-03-09] MEDS: ALBUTEROL SULFATE 2.5 MG/0.5 ML INH NEB SOLN NEB SCH ×4 (07:55→19:34)
[2017-03-09] MEDS: ATORVASTATIN 20 MG TAB PO SCH (08:49)
[2017-03-09] MEDS: VENLAFAXINE **XR** 75MG CAPSULE PO SCH (08:52)
[2017-03-09] MEDS: ASPIRIN 81 MG ENTERIC TAB PO SCH (08:52)
[2017-03-09] MEDS: OXcarbazepine 300 MG TAB PO SCH ×2 (08:52→21:25)
[2017-03-09] MEDS: CALCIUM CARBONATE 500 MG CHEW U/D PO SCH ×3 (08:52→21:25)
[2017-03-09] MEDS: PANTOPRAZOLE 40MG INJ (PROTONIX) (C9113) IV SCH (08:53)
[2017-03-09] MEDS: CARVedilol 3.125 MG TAB PO SCH ×2 (08:53→21:25)
--- NOTE | 2017-03-09 09:05 | REP ---
Portable chest, 07:05 a.m.: Comparison 03/08/2017. There is mild interstitial coarsening compatible with vascular engorgement, unchanged. There are no focal infiltrates or effusions. Cardiac size is upper normal for There is a right IJ central venous catheter, unchanged. Impression: There is no interval change. Signed by Inder Rushing MD 03/09/2017 08:57 A
[2017-03-09] MEDS ORDERED: FUROSEMIDE 100 MG/10 ML VIAL (J1940) IV ONE (09:30)
[2017-03-09] MEDS ORDERED: DARBEPOETIN 100 MCG/0.5 ML *DIALYSIS* SYRINGE (J0882) IV SCH (09:30)
--- NOTE | 2017-03-09 11:17 | IPN ---
DATE OF EXAM: 03/09/2017 SUBJECTIVE: The patient tells me that he is feeling better. He tells me that he wants to eat and drink and that he wants to go back to [facility]). He denies any other specific complaints. He tells me that he is breathing quite comfortably. OBJECTIVE: VITAL SIGNS: Temperature 98.7. Pulse 75. Respiratory rate 24. Blood pressure 152/72. Oxygen saturation 97% on 2 liters nasal cannula. GENERAL: He is a morbidly obese, man, laying in bed watching television on nasal cannula. He is conversant and does not appear to be in any acute distress. He speaks in complete sentences. HEENT: He has moist mucous membranes. Difficult to assess for any elevation in his central venous pressure. CARDIOVASCULAR EXAM: S1, S2, regular. RESPIRATORY EXAM: Distant secondary to body habitus. He has a hemodialysis catheter in place. ABDOMINAL EXAM: Grossly obese. EXTREMITIES: No o clubbing, cyanosis or appreciable edema. LABORATORY STUDIES: WBC 6.6, hemoglobin 9.7, platelet count 162. Chemistry panel: Sodium 137, potassium 3.9, chloride 103, bicarbonate 29, BUN 45 creatinine 3.6. Iron is low. Urine culture is positive for Proteus mirabilis an sputum culture was positive for methicillin-resistant Staphylococcus aureus (MRSA). IMAGING: The patient did have a chest x-ray this morning which revealed no interval change. ASSESSMENT AND PLAN: This is a 62-year-old man with decompensated combined diastolic/systolic congestive heart failure in the setting of end-stage renal disease. PROBLEMS: 1. Acute on chronic systolic/diastolic congestive heart failure in the setting of progressive renal disease. Nephrology's help is greatly appreciated. He has been started on hemodialysis and his volume status is being optimized via diuresis and hemodialysis. I did speak with nephrology today and the plan is for him to be dialyzed tomorrow. He appears to have tolerated being off BiPAP most of the day yesterday. He is still on BiPAP at night and has not been transitioned to his home continuous positive airway pressure (CPAP) and when okay with pulmonary and this has been done I suspect he can be down graded to medical-surgical floor. At the present time, his respiratory failure has improved significantly. 2. End-stage renal disease, now on hemodialysis. Nephrology's help is greatly appreciated. He will need a new outpatient bariatric hemodialysis chair. He is from [facility] where he is likely to return. He is scheduled for dialysis tomorrow and I suspect we can arrange for outpatient dialysis. He may be able to return to dialysis as early as Thursday. 3. Anemia, status post 3 units of packed red blood cells (PRBC) with positive response during this stay. Nephrology's help is appreciated. Will start on Aranesp. 4. Suspected chronic obstructive pulmonary disease (COPD). I also suspect an element of obesity hypoventilation syndrome. There is no spirometry on record. He has been extubated. Pulmonary's help in regards to the BiPAP and CPAP transition is greatly appreciated. 5. Depression and schizophrenia. He is on Trileptal, Effexor and Invega which will be restarted now that he is able to tolerate somewhat by mouth. 6. Dysphagia. The patient failed a swallow evaluation on Thursday and was started on total parenteral nutrition (TPN). At the present time, he is to have a reevaluation today and I suspect he will do better and we may be able to restart his diet and by mouth medications. 7. Hypertension. While nothing by mouth, the patient has been on hydralazine IV every 6 hours. He is normally on Coreg. Would likely try to transition him back to this as he is able to tolerate by mouth. 8. Abnormal troponin likely related to demand ischemia. He was seen by Dr. Rodas earlier during this visit and will require outpatient followup with cardiology. He may benefit from an ischemic workup. 9. Dyslipidemia. He is on a statin. 10. Diabetes. He is on fingersticks every 6 hours while on TPN. 11. Fever that was a one time episode related to a blood transfusion. He did have an abnormal urinalysis (UA) and sputum; however, he is not on any antibiotics. He has otherwise been afebrile. He is not tachycardiac. His leukocytosis resolved and he does not appear to be septic. In essence, we have not treated these cultures and the patient appears to be doing quite well. 12. Deep venous thrombosis (DVT) prophylaxis. He is on heparin. DISPOSITION: Possibly able to return to [facility] depending on how he progresses over the next 24-48 hours.
--- NOTE | 2017-03-09 13:19 | IPN ---
DATE: 03/09/2017 SUBJECTIVE: The patient is seen this morning in the intensive care unit at the bedside, sitting out of bed to the chair, comfortable, on 2 liters nasal cannula and in no acute respiratory distress. He passed a swallow evaluation and is currently on a pureed diet, which he is happy about. He complains of dyspnea with exertion. Otherwise, denies any significant complaints. VITAL SIGNS: Temperature 99.5, pulse 77, respiratory rate 26, blood pressure 154/74, pulse oximetry 94 to 96% on 2 liters nasal cannula. Intake and output: Intake 2100 and output 430 mL of urine, positive fluid balance of 1670. General: The patient is seen sitting out of bed to the chair. Morbidly obese. In no acute respiratory distress. Head and neck: Extraocular muscles are intact. The oral mucosa is moist. It is difficult to assess his neck veins. Cardiac: S1, S2, regular rate. 2+ radial pulse. No significant edema in the lower extremities. Lungs: Distant air entry bilaterally. There is a right subclavian PermaCath in place. Abdomen is obese, nontender. The extremities are without clubbing or appreciable edema. Neurologic: He is at his baseline mentation. Psychiatric: Appropriate mood and affect. LABORATORIES: White count 6.6, hemoglobin 9.7, platelets 162. Sodium 137, potassium 3.9, bicarbonate 29, corrected calcium 9.4, total saturation 22%, ferritin 449. IMAGING: Chest x-ray without any significant interval change from prior. There is some vascular engorgement, unchanged. INPATIENT MEDICATIONS: The patient is completing a dose of TPN and is now on pureed diet. I will start him on Aranesp once a week with dialysis. Today, he will receive a dose of Lasix 80 mg IV times one. His other medications are unchanged from prior. PROBLEMS: 1. End-stage renal disease, now on hemodialysis. The patient will require outpatient hemodialysis set up. He will require the bariatric chair in [facility]. His next hemodialysis will be tomorrow, 03/10/2017. Today, he will receive a dose of IV Lasix and he has responded well to diuretics. 2. Acute on chronic congestive heart failure (CHF). Volume correction through dialysis and the patient does have significant residual renal function and responds well to diuretics as well. He will receive a dose of Lasix today and will receive dialysis tomorrow. His volume status has improved from prior, as has his respiratory function. 3. Respiratory failure, improved. The patient is comfortable on nasal cannula today. We will continue to keep him on the dry side with use of both dialysis and diuretics. 4. Anemia. The patient has a total saturation of 22% and ferritin of around 450. We will start him on Aranesp once a week with dialysis for a goal hemoglobin of 10 to 11. 5. Dysphagia. The patient is now advanced to a pureed diet. No further need for TPN at this time. 6. Hypertension. Blood pressures have been a little bit above goal at present. The patient should be able to tolerate his medications by mouth. Plan of care is discussed with Dr. Sorto. CHUY
--- NOTE | 2017-03-09 18:07 | IPN ---
DATE: 03/09/2017 Mr. Valadez denies any shortness of breath. He did pass his swallow evaluation and is comfortably sipping coffee at bedside. He states that he is feeling much better and that he wants to go back to his home at [facility]. He states that he is no longer feeling any type of dysuria. He is not feeling short of breath. He denies any chest pain. The patient states that he does not wear his continuous positive airway pressure (CPAP) at home. He does not like his mask. However, he does like the mask that we have been using on his bilevel positive airway pressure (BiPAP). PHYSICAL EXAMINATION: VITAL SIGNS: Temperature 99.5, pulse 77, respiratory rate 26, blood pressure 166/80 with a mean arterial pressure (MAP) of 108, pulse oximetry is 96% on two liters via nasal cannula. GENERAL: The patient is sitting up in the chair. He is in no acute distress. He is sipping coffee through a straw. He is alert and talking. HEENT: Anicteric. Pupils are equal, round and reactive to light. Nares are patent bilaterally. Mucosa is moist. NECK: Supple without thyromegaly or masses. Jugular venous distention (JVD) unable to be appreciated secondary to body habitus, but trachea is felt to be midline on palpation. LUNGS: No significant crackles. Mild expiratory wheezes. He does have diminished breath sounds at the bases bilaterally. Inspiratory phase is equal to expiratory phase. He does not use any accessory muscles or have any retractions. CARDIOVASCULAR: Regular rate and rhythm. The patient is normal sinus. There are no murmurs, rubs or gallops. ABDOMEN: The patient is morbidly obese. There are normoactive bowel sounds. No organomegaly is appreciated. However, this is difficult to assess due to the patient's body habitus. There is no tenderness to palpation. EXTREMITIES: Pulses are palpable throughout. The patient does have some lower extremity edema, unchanged from previous examination. LABORATORY DATA: CBC: White count is 6.6, hemoglobin is 9.7 (stable), hematocrit is 30.3, platelets are 162. Chemistry: Sodium 137, potassium 3.9, chloride 103, CO2 29, anion gap 5, BUN 45, creatinine 3.68, fasting glucose 305, calcium 8.0, iron 41, TIBC 180, transferrin percent saturation 22.8, ferritin 449, total bilirubin 0.4, AST 11, ALT 16, alkaline phosphatase 51, total protein 5.9, albumin 2.3. MICROBIOLOGY: Urine culture from 03/06/2017 grew Proteus mirabilis. IMAGING STUDIES: Chest x-ray: No changes from the chest x-ray done on 2016. There may be a decrease in infiltrates on the left base. However, left costophrenic angle is unable to be seen. IMPRESSION: Pradeep Valadez is a 62-year-old male who is morbidly obese and has been successfully weaned off mechanical ventilation. He has been tolerating bilevel positive airway pressure (BiPAP) and is able to go throughout the day on two liters of nasal cannula without difficulty. He does wish to go home. 1. Obstructive sleep apnea. Last time the patient was seen in the pulmonology office was 2005. He has been on continuous positive airway pressure (CPAP) at home, but has been noncompliant per nursing at [facility]. We will be trying his CPAP out tonight. However, he will probably not tolerate it. If he does not tolerate his CPAP, we will convert to bilevel positive airway pressure. The patient's home care company is [employer]. 2. Obesity hypoventilation syndrome. As noted above, the patient has been noncompliant with his CPAP. He will most likely not tolerate CPAP even if we adjust his settings. Therefore, we expect to convert to bilevel. His most recent nocturnal oximetry was on 03/11/2016. Tonight, we will switch to his tabletop CPAP machine. My faculty preceptor for this patient encounter was physically present during the encounter and was fully available. All aspects of the patient interview, examination, medical decision making process, and medical care plan development were reviewed and approved by the faculty preceptor. The faculty preceptor is aware and concurs with the plan as stated in the body of this note and will attest to such by his/her co-signature. I, Robert Wolf, conducted an independent history and physical and agree with the assessment and plan as outlined above. CHUY
[2017-03-09] MEDS: PALIPERIDONE 3 MG ER TAB (INVEGA) PO SCH (21:25)
[2017-03-10] VITALS: BP 138/103
[2017-03-10] MEDS: HumaLOG INSULIN (NovoLOG) PER UNIT SC SCH ×5 (00:44→21:12)
[2017-03-10 04:00] VITALS: BP 136/69
[2017-03-10] MEDS: hydrALAZINE INJ 20 MG/ML VIAL IV SCH ×2 (05:02)
[2017-03-10] MEDS: HEPARIN SOD (PORCINE) 5000 UNITS/ML VIAL SC SCH ×3 (05:15→21:13)
[2017-03-10] MEDS: SODIUM CHLORIDE 0.9% INJ 10 ML SYR IV SCH ×2 (05:16→17:28)
[2017-03-10 05:45] LABS: MEAN CORPUSCULAR HEMOGLOBIN 29.9 pg (27.0-33.0); MEAN CORPUSCULAR HGB CONC 32.5 g/dl (32.0-36.5); MEAN CORPUSCULAR VOLUME 91.9 fl (80.0-96.0); PLATELET COUNT, AUTOMATED 146 10^3/uL (150-450); RED CELL DISTRIBUTION WIDTH 17.3 % (11.5-14.5); WHITE BLOOD COUNT 7.9 10^3/uL (4.0-10.0)
[2017-03-10] MEDS: SLF 3 ML SYR IV SCH ×3 (06:00→21:13)
[2017-03-10 06:11] LABS: ALBUMIN 2.6 GM/DL (3.2-5.2); ALBUMIN/GLOBULIN RATIO 0.72 (1.00-1.93); BILIRUBIN,TOTAL 0.4 MG/DL (0.2-1.0); CALCIUM LEVEL 8.3 MG/DL (8.8-10.2); CREATININE FOR GFR 4.16 MG/DL (0.70-1.30); GLOMERULAR FILTRATION RATE 15.7 (>49); TOTAL PROTEIN 6.2 GM/DL (6.4-8.2)
[2017-03-10] MEDS: ALBUTEROL SULFATE 2.5 MG/0.5 ML INH NEB SOLN NEB SCH ×4 (07:35→20:55)
--- NOTE | 2017-03-10 07:48 | REP ---
Portable chest, 06:59 a.m.: Comparison to 07/24/2016. Mild interstitial coarsening is again identified, unchanged, compatible with vascular engorgement. No focal infiltrates are again identified. No pleural effusions. Cardiac size is upper normal for portable positioning. There is a right IJ central venous catheter, unchanged. No pleural effusions. Impression: There is no interval change. No Signed by Inder Rushing MD 03/10/2017 07:39 A
[2017-03-10 08:00] VITALS: BP 180/88
[2017-03-10] MEDS: CALCIUM CARBONATE 500 MG CHEW U/D PO SCH ×3 (08:42→20:24)
[2017-03-10] MEDS: PANTOPRAZOLE 40MG INJ (PROTONIX) (C9113) IV SCH (08:42)
[2017-03-10] MEDS: CARVedilol 3.125 MG TAB PO SCH ×2 (08:43→20:25)
[2017-03-10] MEDS: VENLAFAXINE **XR** 75MG CAPSULE PO SCH (08:43)
[2017-03-10] MEDS: ASPIRIN 81 MG ENTERIC TAB PO SCH (08:43)
[2017-03-10] MEDS: ATORVASTATIN 20 MG TAB PO SCH (08:43)
[2017-03-10] MEDS: OXcarbazepine 300 MG TAB PO SCH ×2 (08:43→20:24)
[2017-03-10] MEDS ORDERED: GLUCOSE 4 GM CHEW TABLET PO PRN (08:45)
[2017-03-10] MEDS ORDERED: GLUCAGON FOR INJ 1 MG VIAL (J1610) SC PRN (08:45)
[2017-03-10] MEDS ORDERED: DEXTROSE 50% 50 ML SYRINGE IV PRN (08:45)
[2017-03-10] MEDS ORDERED: HEPARIN 1,000 UNITS/ML 10ML VIAL (FOR RADIOLOGY& DIALYSIS ONLY) IV ONE (10:15)
[2017-03-10 12:00] VITALS: BP 177/96
[2017-03-10] MEDS: **hydrALAZINE HCL** 25 MG TAB PO SCH ×3 (12:00→23:57)
--- NOTE | 2017-03-10 16:55 | IPNPDOC ---
Text Note Date of Service The patient was seen on 03/10/17. NOTE Reported improved respiration and strength. tolerating oral, denied CP, abd pain , sob, n/v. GENERAL: He is a morbidly obese, NAD, speaks in complete sentensis HEENT: He has moist mucous membranes. Difficult to assess for any elevation in his central venous pressure. CARDIOVASCULAR EXAM: S1, S2, regular. RESPIRATORY EXAM: Distant secondary to body habitus. He has a hemodialysis catheter in place. ABDOMINAL EXAM: Grossly obese. EXTREMITIES: No o clubbing, cyanosis or appreciable edema. ASSESSMENT AND PLAN: This is a 62-year-old man from [place] with HTN, Aortic stenosis, DLP, COPD (on 2 L O2 and bipap at night), IDDM2, Schizophrenia and GERD a/w decompensated combined diastolic/systolic congestive heart failure in the setting of end-stage renal disease. PROBLEMS: 1. Acute on chronic systolic/diastolic congestive heart failure in the setting of progressive renal disease. Nephrology's help is greatly appreciated. He has been started on hemodialysis and his volume status is being optimized via diuresis and hemodialysis. c/w HD as per nephrology, bipap at night, NC o2 at day, bipap outpatient as per Pul. improve respiration 2. End-stage renal disease, now on hemodialysis. Nephrology's help is greatly appreciated. He will need a new outpatient bariatric hemodialysis chair. He is from [facility] where he is likely to return. HD today, 3. Anemia, status post 3 units of packed red blood cells (PRBC) with positive response during this stay. Nephrology's help is appreciated. Will start on Aranesp. 4. Suspected chronic obstructive pulmonary disease (COPD). I also suspect an element of obesity hypoventilation syndrome. There is no spirometry on record. He has been extubated. pul consulted, NC at day, bipapa at night, c/w with neb 5. Depression and schizophrenia. He is on Trileptal, Effexor and Invega which will be restarted now that he is able to tolerate somewhat by mouth. 6. Dysphagia. as on TPN, speech and swallo appreciated, currently on pureed diet 7. Hypertension. coreg, hydralazine, add nitrate if needed 8. Abnormal troponin likely related to demand ischemia. He was seen by Dr. Antecol earlier during this visit and will require outpatient followup with cardiology. He may benefit from an ischemic workup. 9. Dyslipidemia. He is on a statin. 10. Diabetes. FS ACHS, insulin as per protocol 11. Fever that was a one time episode related to a blood transfusion. He did have an abnormal urinalysis (UA) and sputum; however, he is not on any antibiotics. He has otherwise been afebrile. He is not tachycardiac. His leukocytosis resolved and he does not appear to be septic. In essence, we have not treated these cultures and the patient appears to be doing quite well. 12. Deep venous thrombosis (DVT) prophylaxis. He is on heparin. DISPOSITION: Possibly able to return to [facility] depending on how he progresses over the next 24-48 hours. 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 VS,Fishbone, I+O VS, Fishbone, I+O Laboratory Tests 03/10/17 05:18 Red Blood Count 3.45 L, Mean Corpuscular Volume 91.9, Mean Corpuscular Hemoglobin 29.9, Mean Corpuscular Hemoglobin Concent 32.5, Red Cell Distribution Width 17.3 H, Calcium Level 8.3 L, Aspartate Amino Transf (AST/SGOT ) 8, Alanine Aminotransferase (ALT/SGPT) 18, Alkaline Phosphatase 62, Total Bilirubin 0.4, Total Protein 6.2 L, Albumin 2.6 L Vital Signs Date Time Temp Pulse Resp B/P (MAP) Pulse Ox O2 Delivery O2 Flow Rate FiO2 03/10/17 12:00 Nasal Cannula 2.0 03/10/17 12:00 97.9 81 18 177/96 (123) 96 03/10/17 08:00 30 I&O- Last 24 Hours up to 6 AM 03/11/17 06:00 Intake Total 240 ml Output Total 3000 ml Balance -2760 ml MICKEY PABLO MD Mar 10, 2017 16:55
[2017-03-10 17:10] VITALS: BP 169/80
--- NOTE | 2017-03-10 17:28 | IPN ---
DATE: 03/10/2017 SUBJECTIVE: The patient is seen this morning on hemodialysis, tolerating his treatment without issue. He reports he feels dyspneic on exertion when he tries to pivot and move from bed to chair. He otherwise denies complaints. He reports his appetite is very good, had 1550 oral intake yesterday and denies any shortness of breath at rest. VITAL SIGNS: Temperature 97.8, pulse 83, respiratory rate 18-24, blood pressure systolic 136-180, diastolic 69-88, pulse oximetry 96-97%, seen on nasal cannula in hemodialysis. General: The patient is seen on dialysis, comfortable, in no acute distress, morbidly obese. Extraocular muscles are intact. Nasal cannula is in place. The tongue is moist. Neck is supple, difficult to assess the central venous pressure. Cardiac: S1, S2, distant, 2+ radial pulses. There is no significant edema in the lower extremities. Lungs: Anterior auscultation only, distant air entry, bilaterally symmetric. No accessory muscles inspiration use. No tachypnea. Seems comfortable on nasal cannula. The abdomen is soft, obese, nontender. Positive bowel sounds. Extremities: The patient moves all four extremities. No edema in the lower extremities. Neurologic: He is at his baseline mentation, appropriately interactive, conversational. Psychiatric: He is anxious. LABORATORY: White count 7.9, hemoglobin 10.3, platelets 146. Sodium 137, potassium 4.0, bicarbonate 26, glucose 185, corrected calcium 9.5. IMAGING: Chest x-ray 03/10/2017: Mild pulmonary vascular engorgement. No interval change. No pleural effusions. INPATIENT MEDICATIONS: I started the patient on Aranesp. His hydralazine was changed from IV to 25 mg by mouth every 6 hours per the primary team. His insulin is adjusted per the primary team. Remainder of medications are unchanged from prior. PROBLEMS: 1. Acute on chronic systolic and diastolic congestive heart failure in the setting of end-stage renal disease, newly started on dialysis. The patient's volume status is regulated through both dialysis and diuretics. He is dialyzed today with goal ultrafiltration of 3 kg. From a respiratory point of view, he has significantly improved. As his oral intake is increasing, he may continue to require diuretics on nondialysis days. 2. End-stage renal disease, now on hemodialysis. The patient is pending outpatient hemodialysis setup in the [facility] outpatient hemodialysis unit with a bariatric chair. His goal ultrafiltration on dialysis today is 3 kg. His next hemodialysis session will be on 03/12/2017. I will probably give him a dose of intravenous Lasix tomorrow, as it will be a nondialysis day for him, for further control of his volume status. 3. Respiratory failure, improved. The patient is comfortable on nasal cannula, and he continues on bilevel positive airway pressure (BiPAP) at night. We will continue to keep him on the dry side with use of dialysis and diuretics. 4. Anemia. The patient is started on Aranesp once weekly for a goal hemoglobin of 10-11. 5. Nutrition. The patient is now on a pureed diet. Morbid obesity does complicate his care, and he will be referred for bariatric surgery in the future. 6. Hypertension. The patient's blood pressures have been labile; systolic ranging from 136-180. He continues on Coreg, and his hydralazine is switched from intravenous to oral 25 mg every 6 hours.
[2017-03-10 20:00] VITALS: BP 113/76
[2017-03-10] MEDS: PALIPERIDONE 3 MG ER TAB (INVEGA) PO SCH (20:24)
[2017-03-11] VITALS: BP 107/67
[2017-03-11 04:00] VITALS: BP 109/55
[2017-03-11 05:14] LABS: MEAN CORPUSCULAR HEMOGLOBIN 30.1 pg (27.0-33.0); MEAN CORPUSCULAR HGB CONC 32.7 g/dl (32.0-36.5); MEAN CORPUSCULAR VOLUME 91.8 fl (80.0-96.0); PLATELET COUNT, AUTOMATED 152 10^3/uL (150-450); RED CELL DISTRIBUTION WIDTH 17.4 % (11.5-14.5); WHITE BLOOD COUNT 10.3 10^3/uL (4.0-10.0)
[2017-03-11 05:35] LABS: ALBUMIN 2.4 GM/DL (3.2-5.2); ALBUMIN/GLOBULIN RATIO 0.67 (1.00-1.93); BILIRUBIN,TOTAL 0.5 MG/DL (0.2-1.0); CREATININE FOR GFR 4.12 MG/DL (0.70-1.30); GLOMERULAR FILTRATION RATE 15.8 (>49); POTASSIUM SERUM 4.1 MEQ/L (3.5-5.1)
[2017-03-11] MEDS: **hydrALAZINE HCL** 25 MG TAB PO SCH ×4 (06:00→23:47)
[2017-03-11] MEDS: SLF 3 ML SYR IV SCH ×3 (06:00→22:00)
[2017-03-11] MEDS: SODIUM CHLORIDE 0.9% INJ 10 ML SYR IV SCH ×2 (06:00→17:54)
[2017-03-11] MEDS: HEPARIN SOD (PORCINE) 5000 UNITS/ML VIAL SC SCH ×3 (06:08→22:06)
[2017-03-11] MEDS: ALBUTEROL SULFATE 2.5 MG/0.5 ML INH NEB SOLN NEB SCH ×4 (07:41→19:47)
--- NOTE | 2017-03-11 07:44 | REP ---
Portable chest, single AP view, the patient semi upright, six 51 a.m. The interstitial coarsening has mildly improved. There are no focal infiltrates or effusions. Cardiac size is upper normal, unchanged. The right IJ central venous catheter is unchanged. Impression: There has been improvement in the interstitial coarsening. Signed by Inder Rushing MD 03/11/2017 07:35 A
[2017-03-11] MEDS: HumaLOG INSULIN (NovoLOG) PER UNIT SC SCH ×4 (07:59→20:12)
[2017-03-11 08:00] VITALS: BP 136/71
[2017-03-11] MEDS: ATORVASTATIN 20 MG TAB PO SCH (08:01)
[2017-03-11] MEDS: VENLAFAXINE **XR** 75MG CAPSULE PO SCH (08:01)
[2017-03-11] MEDS: CALCIUM CARBONATE 500 MG CHEW U/D PO SCH ×3 (08:01→20:11)
[2017-03-11] MEDS: OXcarbazepine 300 MG TAB PO SCH ×2 (08:02→20:11)
[2017-03-11] MEDS: CARVedilol 3.125 MG TAB PO SCH ×2 (08:02→20:11)
[2017-03-11] MEDS: PANTOPRAZOLE 40MG INJ (PROTONIX) (C9113) IV SCH (08:02)
[2017-03-11] MEDS: ASPIRIN 81 MG ENTERIC TAB PO SCH (08:02)
[2017-03-11] MEDS ORDERED: DARBEPOETIN 100 MCG/0.5 ML *DIALYSIS* SYRINGE (J0882) IV SCH (09:30)
[2017-03-11 12:00] VITALS: BP 138/70
[2017-03-11 16:00] VITALS: BP 158/74
--- NOTE | 2017-03-11 16:42 | IPNPDOC ---
Text Note Date of Service The patient was seen on 03/11/17. NOTE Reported improved respiration and strength. tolerating oral, denied CP, abd pain , sob, n/v. GENERAL: He is a morbidly obese, NAD, speaks in complete sentensis HEENT: He has moist mucous membranes. Difficult to assess for any elevation in his central venous pressure. CARDIOVASCULAR EXAM: S1, S2, regular. RESPIRATORY EXAM: Distant secondary to body habitus. He has a hemodialysis catheter in place. ABDOMINAL EXAM: Grossly obese. EXTREMITIES: No o clubbing, cyanosis or appreciable edema. ASSESSMENT AND PLAN: This is a 62-year-old man from [place] with HTN, Aortic stenosis, DLP, COPD (on 2 L O2 and bipap at night), IDDM2, Schizophrenia and GERD a/w decompensated combined diastolic/systolic congestive heart failure in the setting of end-stage renal disease. PROBLEMS: 1. Acute on chronic systolic/diastolic congestive heart failure in the setting of progressive renal disease. Nephrology's help is greatly appreciated. He has been started on hemodialysis and his volume status is being optimized via diuresis and hemodialysis. c/w HD as per nephrology, bipap at night, NC o2 at day, bipap outpatient as per Pul. improve respiration 2. End-stage renal disease, now on hemodialysis. Nephrology's help is greatly appreciated. He will need a new outpatient bariatric hemodialysis chair. He is from [facility] where he is likely to return. HD today, 3. Anemia, status post 3 units of packed red blood cells (PRBC) with positive response during this stay. Nephrology's help is appreciated. Will start on Aranesp. 4. Suspected chronic obstructive pulmonary disease (COPD). I also suspect an element of obesity hypoventilation syndrome. There is no spirometry on record. He has been extubated. pul consulted, NC at day, bipapa at night, c/w with neb 5. Depression and schizophrenia. He is on Trileptal, Effexor and Invega which will be restarted now that he is able to tolerate somewhat by mouth. 6. Dysphagia. as on TPN, speech and swallow appreciated, currently on pureed diet 7. Hypertension. coreg, hydralazine, add nitrate if needed 8. Abnormal troponin likely related to demand ischemia. He was seen by Dr. Rodas earlier during this visit and will require outpatient followup with cardiology. He may benefit from an ischemic workup. 9. Dyslipidemia. He is on a statin. 10. Diabetes. FS ACHS, insulin as per protocol 11. Fever that was a one time episode related to a blood transfusion. He did have an abnormal urinalysis (UA) and sputum; however, he is not on any antibiotics. He has otherwise been afebrile. He is not tachycardiac. His leukocytosis resolved and he does not appear to be septic. In essence, we have not treated these cultures and the patient appears to be doing quite well. 12. Deep venous thrombosis (DVT) prophylaxis. He is on heparin. DISPOSITION: Possibly able to return to [facility] depending on how he progresses over the next 24-48 hours. 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 VS,Fishbone, I+O VS, Fishbone, I+O Laboratory Tests 03/11/17 04:55 Red Blood Count 3.06 L, Mean Corpuscular Volume 91.8, Mean Corpuscular Hemoglobin 30.1, Mean Corpuscular Hemoglobin Concent 32.7, Red Cell Distribution Width 17.4 H, Calcium Level 8.0 L, Aspartate Amino Transf (AST/SGOT ) 7, Alanine Aminotransferase (ALT/SGPT) 18, Alkaline Phosphatase 59, Total Bilirubin 0.5, Total Protein 6.0 L, Albumin 2.4 L Vital Signs Date Time Temp Pulse Resp B/P (MAP) Pulse Ox O2 Delivery O2 Flow Rate FiO2 03/11/17 16:00 82 17 158/74 (102) 98 Nasal Cannula 2.0 03/11/17 12:00 98.0 03/11/17 08:00 30 I&O- Last 24 Hours up to 6 AM 03/12/17 06:00 Intake Total 640 ml Output Total 0 ml Balance 640 ml MICKEY PABLO MD Mar 11, 2017 16:42
--- NOTE | 2017-03-11 17:14 | IPN ---
DATE: 03/11/2017 SUBJECTIVE: The patient is seen this morning in the intensive care unit. He is drowsy at the time of my visit. He opens his eyes to verbal and tactile stimuli but then closes them and refuses to interact or have conversation. Per RN he was alert earlier and consumed breakfast tray about 50% REVIEW OF SYSTEMS: Unable to obtain. VITAL SIGNS: Temperature 98.8, pulse 80, respiratory rate 18, blood pressure systolic 136/71, pulse oximetry 89% to 98% intermittently in bilevel positive airway pressure (BiPAP) and on nasal cannula two liters. INTAKE AND OUTPUT: Oral intake yesterday 600 mL. Hemodialysis removed 3000 mL. Urine output was 775 mL. Net negative 3175. Weight on the bed scale today is 156.8 kg. Of note his weights are markedly fluctuant and likely inaccurate. GENERAL: The patient is seen lying in bed in the intensive care unit (ICU), on BiPAP, drowsy, in no acute respiratory distress. HEAD AND NECK: He opens his eyes to verbal and tactile stimuli. Difficult to assess the neck veins due to his increased neck circumference. CARDIAC: S1, S2, regular, 2+ radial pulses. No significant edema in the lower extremities. LUNGS: Distant coarse bilateral air entry. CHEST: There is a dialysis catheter in place in the right subclavian. ABDOMEN: Soft, obese, nontender. NEUROLOGIC: He is drowsy, arouses to verbal and tactile stimuli but does not interact or follow commands at the time of my visit. LABORATORY DATA: White count 10.3, hemoglobin 9.2, platelets 152. Sodium 137, potassium 4.1, bicarbonate 28, corrected calcium 9.2, glucose 263. INPATIENT MEDICATIONS: The patient's Aranesp dose is increased to 200 mcg every week. His remainder of medications are unchanged from prior. PROBLEMS: 1. End-stage renal disease, now on hemodialysis. The patient's next dialysis session will be 03/12/2017 with goal ultrafiltration of approximately 3000 mL. His outpatient dialysis setup is pending with a bariatric chair. He will eventually need a fistula placed. We will pursue this as an outpatient. Currently dialyzing via PermaCath. 2. Acute on chronic systolic and diastolic congestive heart failure. Volume status is regulated chiefly dialysis, although the patient does have residual renal function and receives diuretics intermittently. 3. Respiratory failure, improving. The patient continues on bilevel positive airway pressure (BiPAP) at night and nasal cannula two liters during the day. He has improved from a respiratory point of view. He continues on as well albuterol. 4. Anemia of chronic kidney disease. The patient's Aranesp dose is increased to 200 mcg weekly. 5. Nutrition. The patient is now on a pureed diet. Morbid obesity complicates his care and he will be referred for bariatric surgery in the future. 6. Hypertension. Blood pressure is reasonable at this time on current regimen and no changes are being made. Plan of care is discussed with Dr. Gia Hector. CHUY
[2017-03-11 20:00] VITALS: BP 124/62
[2017-03-11] MEDS: PALIPERIDONE 3 MG ER TAB (INVEGA) PO SCH (20:11)
[2017-03-12] VITALS: BP 107/56
[2017-03-12 04:00] VITALS: BP 158/83
[2017-03-12 05:33] LABS: MEAN CORPUSCULAR HEMOGLOBIN 30.6 pg (27.0-33.0); MEAN CORPUSCULAR HGB CONC 32.8 g/dl (32.0-36.5); MEAN CORPUSCULAR VOLUME 93.2 fl (80.0-96.0); PLATELET COUNT, AUTOMATED 168 10^3/uL (150-450); RED CELL DISTRIBUTION WIDTH 17.2 % (11.5-14.5); WHITE BLOOD COUNT 9.5 10^3/uL (4.0-10.0)
[2017-03-12] MEDS: SLF 3 ML SYR IV SCH ×3 (06:00→22:01)
[2017-03-12] MEDS: SODIUM CHLORIDE 0.9% INJ 10 ML SYR IV SCH ×2 (06:00→16:08)
[2017-03-12] MEDS: HEPARIN SOD (PORCINE) 5000 UNITS/ML VIAL SC SCH ×3 (06:07→22:00)
[2017-03-12] MEDS: **hydrALAZINE HCL** 25 MG TAB PO SCH ×3 (06:07→17:38)
[2017-03-12 06:09] LABS: ALBUMIN 2.4 GM/DL (3.2-5.2); ALBUMIN/GLOBULIN RATIO 0.67 (1.00-1.93); BILIRUBIN,TOTAL 0.3 MG/DL (0.2-1.0); CREATININE FOR GFR 5.07 MG/DL (0.70-1.30); GLOMERULAR FILTRATION RATE 12.5 (>49); POTASSIUM SERUM 4.1 MEQ/L (3.5-5.1)
[2017-03-12] MEDS: ALBUTEROL SULFATE 2.5 MG/0.5 ML INH NEB SOLN NEB SCH ×4 (07:39→19:44)
[2017-03-12 08:12] VITALS: BP 179/85
[2017-03-12] MEDS: HumaLOG INSULIN (NovoLOG) PER UNIT SC SCH ×4 (08:20→21:58)
[2017-03-12] MEDS ORDERED: HEPARIN 1,000 UNITS/ML 10ML VIAL (FOR RADIOLOGY& DIALYSIS ONLY) As Ordered ONE (11:09)
[2017-03-12] MEDS ORDERED: LIDOCAINE 2% MDV 20 ML VIAL As Ordered ONE (11:09)
[2017-03-12] MEDS ORDERED: ISOVUE-300 61% 50ML VIAL (Q9967) As Ordered ONE (11:10)
[2017-03-12] MEDS ORDERED: HEPARIN 1,000 UNITS/ML 10ML VIAL (FOR RADIOLOGY& DIALYSIS ONLY) IV ONE (13:00)
[2017-03-12 15:46] VITALS: BP 125/77
[2017-03-12] MEDS: CARVedilol 3.125 MG TAB PO SCH ×2 (15:49→21:58)
[2017-03-12] MEDS: OXcarbazepine 300 MG TAB PO SCH ×2 (15:49→21:58)
[2017-03-12] MEDS: CALCIUM CARBONATE 500 MG CHEW U/D PO SCH ×3 (15:50→21:58)
[2017-03-12] MEDS: VENLAFAXINE **XR** 75MG CAPSULE PO SCH (16:07)
[2017-03-12] MEDS: PANTOPRAZOLE 40MG INJ (PROTONIX) (C9113) IV SCH (16:07)
[2017-03-12] MEDS: ATORVASTATIN 20 MG TAB PO SCH (16:07)
[2017-03-12] MEDS: ASPIRIN 81 MG ENTERIC TAB PO SCH (16:07)
--- NOTE | 2017-03-12 16:33 | IPNPDOC ---
Text Note Date of Service The patient was seen on 03/12/17. NOTE Reported improved respiration and strength. tolerating oral, denied CP, abd pain , sob, n/v. Tunnel HD malfunction. replaced by Dr Villagomez GENERAL: He is a morbidly obese, NAD, speaks in complete sentensis HEENT: He has moist mucous membranes. Difficult to assess for any elevation in his central venous pressure. CARDIOVASCULAR EXAM: S1, S2, regular. RESPIRATORY EXAM: Distant secondary to body habitus. He has a hemodialysis catheter in place. ABDOMINAL EXAM: Grossly obese. EXTREMITIES: No o clubbing, cyanosis or appreciable edema. ASSESSMENT AND PLAN: This is a 62-year-old man from [place] with HTN, Aortic stenosis, DLP, COPD (on 2 L O2 and bipap at night), IDDM2, Schizophrenia and GERD a/w decompensated combined diastolic/systolic congestive heart failure in the setting of end-stage renal disease. PROBLEMS: 1. Acute on chronic systolic/diastolic congestive heart failure in the setting of progressive renal disease. Nephrology's help is greatly appreciated. He has been started on hemodialysis and his volume status is being optimized via diuresis and hemodialysis. c/w HD as per nephrology, bipap at night, NC o2 at day, bipap outpatient as per Pul. improve respiration 2. End-stage renal disease, now on hemodialysis. Nephrology's help is greatly appreciated. He will need a new outpatient bariatric hemodialysis chair. He is from [facility] where he is likely to return. HD today, 3. Anemia, status post 3 units of packed red blood cells (PRBC) with positive response during this stay. Nephrology's help is appreciated. Will start on Aranesp. 4. Suspected chronic obstructive pulmonary disease (COPD). I also suspect an element of obesity hypoventilation syndrome. There is no spirometry on record. He has been extubated. pul consulted, NC at day, bipapa at night, c/w with neb 5. Depression and schizophrenia. He is on Trileptal, Effexor and Invega which will be restarted now that he is able to tolerate somewhat by mouth. 6. Dysphagia. as on TPN, speech and swallow appreciated, currently on pureed diet 7. Hypertension. coreg, hydralazine, add nitrate if needed 8. Abnormal troponin likely related to demand ischemia. He was seen by Dr. Rodas earlier during this visit and will require outpatient followup with cardiology. He may benefit from an ischemic workup. 9. Dyslipidemia. He is on a statin. 10. Diabetes. FS ACHS, insulin as per protocol 11. Fever that was a one time episode related to a blood transfusion. He did have an abnormal urinalysis (UA) and sputum; however, he is not on any antibiotics. He has otherwise been afebrile. He is not tachycardiac. His leukocytosis resolved and he does not appear to be septic. In essence, we have not treated these cultures and the patient appears to be doing quite well. 12. Deep venous thrombosis (DVT) prophylaxis. He is on heparin. DISPOSITION: Possibly able to return to [facility] depending on how he progresses over the next 24-48 hours. need bariatric HD chair, Morbid obesity , with COPD, ESRD , and CHF, poor care home prognosis. VS,Fishbone, I+O VS, Fishbone, I+O Laboratory Tests 03/12/17 05:19 Red Blood Count 2.81 L, Mean Corpuscular Volume 93.2, Mean Corpuscular Hemoglobin 30.6, Mean Corpuscular Hemoglobin Concent 32.8, Red Cell Distribution Width 17.2 H, Calcium Level 8.0 L, Aspartate Amino Transf (AST/SGOT ) 7, Alanine Aminotransferase (ALT/SGPT) 19, Alkaline Phosphatase 62, Total Bilirubin 0.3, Total Protein 6.0 L, Albumin 2.4 L Vital Signs Date Time Temp Pulse Resp B/P (MAP) Pulse Ox O2 Delivery O2 Flow Rate FiO2 03/12/17 15:50 125/77 03/12/17 15:49 76 03/12/17 15:46 98.0 20 96 Nasal Cannula 2.0 03/11/17 08:00 30 I&O- Last 24 Hours up to 6 AM 03/13/17 06:00 Intake Total 0 ml Output Total 3450 ml Balance -3450 ml MICKEY PABLO MD Mar 12, 2017 16:33
[2017-03-12] MEDS: PALIPERIDONE 3 MG ER TAB (INVEGA) PO SCH (21:58)
[2017-03-12 22:00] VITALS: BP 141/76
[2017-03-13] MEDS: **hydrALAZINE HCL** 25 MG TAB PO SCH ×2 (00:14→05:32)
[2017-03-13] MEDS: HEPARIN SOD (PORCINE) 5000 UNITS/ML VIAL SC SCH (05:30)
[2017-03-13] MEDS: SODIUM CHLORIDE 0.9% INJ 10 ML SYR IV SCH (05:30)
[2017-03-13] MEDS: SLF 3 ML SYR IV SCH (05:32)
[2017-03-13 05:43] LABS: MEAN CORPUSCULAR HEMOGLOBIN 30.2 pg (27.0-33.0); MEAN CORPUSCULAR HGB CONC 32.5 g/dl (32.0-36.5); PLATELET COUNT, AUTOMATED 183 10^3/uL (150-450); RED CELL DISTRIBUTION WIDTH 17.3 % (11.5-14.5)
[2017-03-13 06:00] VITALS: BP 131/70
[2017-03-13 06:28] LABS: CALCIUM LEVEL 8.1 MG/DL (8.8-10.2); CREATININE FOR GFR 4.16 MG/DL (0.70-1.30); GLOMERULAR FILTRATION RATE 15.7 (>49); POTASSIUM SERUM 4.4 MEQ/L (3.5-5.1)
[2017-03-13] MEDS: ALBUTEROL SULFATE 2.5 MG/0.5 ML INH NEB SOLN NEB SCH (07:05)
[2017-03-13] MEDS: HumaLOG INSULIN (NovoLOG) PER UNIT SC SCH (07:42)
[2017-03-13] MEDS: PANTOPRAZOLE 40MG INJ (PROTONIX) (C9113) IV SCH (07:43)
[2017-03-13] MEDS: ASPIRIN 81 MG ENTERIC TAB PO SCH (07:43)
[2017-03-13] MEDS: VENLAFAXINE **XR** 75MG CAPSULE PO SCH (07:43)
[2017-03-13 07:44] VITALS: BP 131/70
[2017-03-13] MEDS: ATORVASTATIN 20 MG TAB PO SCH (07:44)
[2017-03-13] MEDS: CALCIUM CARBONATE 500 MG CHEW U/D PO SCH (07:44)
[2017-03-13] MEDS: OXcarbazepine 300 MG TAB PO SCH (07:44)
[2017-03-13] MEDS: CARVedilol 3.125 MG TAB PO SCH (07:44)
[2017-03-13] MEDS ORDERED: ASPI81TAEC PO (08:10)
[2017-03-13] MEDS ORDERED: HYDR25TA PO (08:10)
[2017-03-13] MEDS ORDERED: CARV3.12 PO (08:10)
[2017-03-13] MEDS ORDERED: TOUJ1.2I SC (08:13)
[2017-03-13] MEDS: ACETAMINOPHEN 650 MG SUPP PR PRN (09:31)
--- NOTE | 2017-03-13 09:41 | IPN ---
DATE OF SERVICE: 03/12/2017 SUBJECTIVE: The patient is seen this morning on hemodialysis. Earlier attempts to dialyze has failed because his PermaCath was malfunctioning. Subsequently, I got in touch with Dr. Villagomez and patient went to interventional radiology and had a PermaCath replacement. He was subsequently able to receive his hemodialysis session today. Denies any complaints, feels well, tolerating oral intake and the patient inquired when he might be leaving the hospital. VITAL SIGNS: Temperature 97.7, pulse 74, respiratory rate 20, blood pressure systolic 159/73, saturating 96% on 2 liters nasal cannula. INTAKE AND OUTPUT: Oral intake yesterday 1240 mL. Urine output yesterday is 400 mL. Weight on the bed scale today is 160 kg, which is markedly different from prior and likely inaccurate. Hemodialysis today removed 2950 mL. GENERAL: The patient is seen on dialysis, comforable, in no acute distress, in good spirits. Extraocular muscles are intact. The oral mucosa is moist. The neck veins are difficult to assess secondary to body habitus. There is a right internal jugular (IJ) PermaCath in place with dressing. CARDIAC: S1, S2. Distant heart sounds. Regular rate. 2+ radial pulse. No significant edema in the lower extremities. LUNGS: Anterior auscultation only. Symmetric air entry, comfortable on nasal cannula. The abdomen is soft, obese, nontender. EXTREMITIES: Without significant edema. NEUROLOGIC: He is at his baseline mentation. PSYCHIATRIC: Appropriate mood and affect. LABORATORIES: White count 9.5, hemoglobin 8.6, platelet 168. Sodium 136, potassium 4.1, bicarbonate 25. INPATIENT MEDICATIONS: No significant change from prior. PROBLEMS: 1. End-stage renal disease. Newly started on hemodialysis on this admission. The patient required a PermaCath exchange this morning, and I appreciate Dr. Villagomez's timely assistance. As an outpatient, we will pursue fistula placement. He is set up with a bariatric chair in the [facility] on Thursday, , Thursday schedule with the first treatment availability scheduled for 03/14/2017. 2. Acute on chronic systolic and diastolic congestive heart failure. Volume status is regulated chiefly through dialysis. Although, the patient does have residual renal function and receives diuretics intermittently. Overall has improved from a volume and respiratory standpoint, and is tolerating ultrafiltration well. 3. Respiratory failure, improving. The patient continues on bilevel positive airway pressure (BiPAP) at night and nasal cannula 2 liters during the day. 4. Anemia of chronic kidney disease. The patient continues on Aranesp. Goal hemoglobin is 10-11. 5. Nutrition. The patient continues a pureed diet. Advance as tolerated. Defer to primary team. 6. Hypertension. Blood pressure stable at this time and overall has improved with ultrafiltration and volume removal. There are no changes being made to his current antihypertensive regimen at present. MTDD
--- NOTE | 2017-03-13 15:24 | DSES ---
DATE OF ADMISSION: 03/01/2017 DATE OF DISCHARGE: 03/13/2017 PRIMARY CARE PROVIDER: Dr. Umair Crain DRAW FIRE OPERATOR: Dr. Delgado Duron CRITICAL CARE ATTENDING: Dr. Marino and Dr. Wolf PARTS INTERPRETER: Dr. Rodas. FINAL DIAGNOSES: 1. Acute on chronic systolic and diastolic congestive heart failure (CHF) in the setting of progressively worsening renal disease. 2. End stage renal disease, new dialysis. 3. Anemia of chronic disease. 4. Morbid obesity. 5. Chronic obstructive pulmonary disease (COPD). 6. Obesity hypoventilation syndrome. 7. Acute on chronic hypoxic hypercarbic respiratory failure. 8. Depression. 9. Schizophrenia. 10. Dysphagia. 11. Hypertension. 12. Troponin elevation due to demand ischemia. 13. Dyslipidemia. 14. Diabetes. 15. Fever. HISTORY OF PRESENT ILLNESS: This is a 62-year-old male patient with underlying medical history of hypertension, aortic stenosis, dyslipidemia, COPD, on 2 liters of oxygen at baseline with BiPAP at night, insulin dependent type 2 diabetes, schizophrenia and GERD, presented to the emergency room with complaints of shortness of breath that started the night before. The patient was in his usual state of health and was noted to begin to have shortness of breath. Denies any cough. Denies any fever. Did note that he was experiencing some chills. The patient denies any lower extremity swelling. He does report that he experiences shortness of breath when he lies flat on his back, so the patient sleeps with at least one pillow to sometimes in an upright position. The patient also noted frequent nighttime awakening, making it difficult to sleep at night. Denies any chest pain, palpitations. Denies any swelling, nausea or vomiting. The patient denies any history of heart attack or stroke in the past. Has not had any cardiac catheterization done in the past. HOSPITAL COURSE: The patient was admitted to the hospital with worsening respiratory condition and also with hypoxic, hypercarbic respiratory failure, as well as acute on chronic renal failure. The patient did not tolerated BiPAP and was subsequently intubated. Transfusion was provided. Cardiac enzyme elevation was noted and Dr. Rodas of cardiology was consulted. Echocardiogram was done showing dilated left ventricle with moderate left ventricular hypokinesis and severe reduced overall left ventricular systolic function, ejection fraction of 30% and grade 1 diastolic dysfunction and evidence of pulmonary artery hypertension. Cardiac enzymes were trended to peak. Dialysis was started for the patient. Tunneled hemodialysis catheter was placed by Dr. Villagomez. Insulin was provided. Blood pressure medication was also provided. Spontaneous trial was made. Lasix was also given. Fluid removed was achieved with dialysis. The patient eventually tolerated spontaneous trial and was subsequently extubated. The patient was placed on BiPAP at night and oxygen in the daytime. Repeat ABG showed resolution of hypercarbia. Given the patient is new to dialysis, arrangements are made for the patient to have bariatric hemodialysis chair. Inhaler was provided. Oxygen was provided. Pulmonary consultation was appreciated. Patient's psychiatric medications were restarted. Speech and swallow evaluation was done. Patient was on TPN due to dysphagia and later switched to pureed, nectar-thickened diet. Blood pressure medication was adjusted. Deep vein thrombosis (DVT) prophylaxis provided. The patient had been comfort measures only, but the patient changed his mind during the hospital course and wanted to FULL CODE. The patient currently remains FULL CODE. Case discussed with pulmonary critical care physician. Overall poor prognosis for the patient. Currently, the patient is tolerating physical therapy (PT) and has much improved respirations, tolerating oral and ready for discharge to senior living facility for further care. High risk for readmission. VITAL SIGNS: Temperature 97.9, pulse 84, respirations 18, blood pressure 131/70, pulse oximetry 96% on 2 liters nasal cannula. GENERAL: Patient morbidly obese in no acute distress. HEENT: Normocephalic, atraumatic. PULMONARY: Distant breath sounds bilateral. CARDIAC: Regular. Distant heart sounds. S1, S2. ABDOMEN: Soft, nontender, obese. EXTREMITIES: No clubbing, cyanosis or edema. Physical examination limited secondary to body habitus. LABORATORY DATA: WBC 10, hemoglobin and hematocrit 9.1/28, platelets 183. Chemistry: Sodium 137, potassium 3.9, chloride 103, bicarbonate 29, BUN 45, creatinine 3.68. DISCHARGE MEDICATIONS: - aspirin 81 mg by mouth daily - Coreg 3.125 mg by mouth twice a day - hydralazine 25 mg by mouth every 8 hours - acetaminophen 650 mg by mouth every 4 hours as needed - albuterol nebulizer every 4 hours as needed - Norvasc 5 mg by mouth daily - Lipitor 40 mg by mouth at night - Dulcolax rectal suppository 10 mg by mouth daily as needed - Calcitriol 0.25 mcg by mouth as directed - Tums 1000 mg by mouth three times a day - vitamin D 2000 units by mouth three times a day - Colace 100 mg by mouth twice a day - ferrous sulfate 325 mg by mouth twice a day - insulin Humalog 8 units subcutaneous three times a day - milk of magnesia 30 mL by mouth daily as needed - omeprazole 20 mg by mouth at night - oxcarbazepine 300 mg by mouth twice a day - Invega 3 mg by mouth at night - Senna 8.6 mg by mouth twice a day - Flomax 0.4 mg by mouth daily - venlafaxine 150 mg by mouth daily - Toujeo reduced to 8 units subcutaneous daily given the patient currently has end stage renal disease DISCHARGE INSTRUCTIONS: The patient is instructed to followup with primary care provider in 7 days, daily weights and continue dialysis Thursday, , Thursday. Renal pureed, nectar-thickened diet. FOLLOWUP: Consider following up with cardiology and digital intern as an outpatient. Return to the hospital if symptoms worsen. Time spent on arranging and coordinating discharge: 35 minutes.
== END 2017-03-13 10:45 | DRG 208 ==
LOC: M ED 07:55 → EDBD 07:55 → M ED INP 10:16 → M ICU 13:06 → M MSPAV 21:37 → M ICU 03-02 14:57 → M MS5PR 03-12 15:30
PROVIDERS: ADMIT Internal Medicine; ATTEND Hospitalist
PROC: 5A1945Z Respiratory Ventilation, 24-96 Consecutive Hours (ICD-10-PCS; principal; 2017-03-01)
PROC: 0JH63XZ Insertion of Tunneled Vascular Access Device into Chest Subcutaneous Tissue and Fascia, Percutaneous Approach (ICD-10-PCS; 2017-03-02)
PROC: 02HV33Z Insertion of Infusion Device into Superior Vena Cava, Percutaneous Approach (ICD-10-PCS; 2017-03-02)
PROC: 02HV33Z Insertion of Infusion Device into Superior Vena Cava, Percutaneous Approach (ICD-10-PCS; 2017-03-03)
PROC: 30233N1 Transfusion of Nonautologous Red Blood Cells into Peripheral Vein, Percutaneous Approach (ICD-10-PCS; 2017-03-04)
PROC: 02HV33Z Insertion of Infusion Device into Superior Vena Cava, Percutaneous Approach (ICD-10-PCS; 2017-03-06)
DX: J96.02 Acute respiratory failure with hypercapnia (principal); I50.43 Acute on chronic combined systolic (congestive) and diastolic (congestive) heart failure; N18.6 End stage renal disease; E87.2 Acidosis; E87.0 Hyperosmolality and hypernatremia; Z68.44 Body mass index [BMI] 60.0-69.9, adult; I13.2 Hypertensive heart and chronic kidney disease with heart failure and with stage 5 chronic kidney disease, or end stage renal disease; E66.2 Morbid (severe) obesity with alveolar hypoventilation; I24.8 Other forms of acute ischemic heart disease; N25.81 Secondary hyperparathyroidism of renal origin; I42.9 Cardiomyopathy, unspecified; J96.01 Acute respiratory failure with hypoxia; J44.9 Chronic obstructive pulmonary disease, unspecified; E78.5 Hyperlipidemia, unspecified; D63.8 Anemia in other chronic diseases classified elsewhere; F20.9 Schizophrenia, unspecified; F32.9 Major depressive disorder, single episode, unspecified; I35.0 Nonrheumatic aortic (valve) stenosis; E11.9 Type 2 diabetes mellitus without complications; K21.9 Gastro-esophageal reflux disease without esophagitis; R13.10 Dysphagia, unspecified; Z79.82 Long term (current) use of aspirin; Z79.899 Other long term (current) drug therapy; Z79.4 Long term (current) use of insulin; Z87.891 Personal history of nicotine dependence; E87.5 Hyperkalemia; E83.39 Other disorders of phosphorus metabolism; I95.9 Hypotension, unspecified; G47.33 Obstructive sleep apnea (adult) (pediatric)

== ENCOUNTER → 2017-03-02 | Outpatient (REF) | payer MEDICARE, MEDICAID ==
[~2017-03-02] MED LIST changes: +ACEP650S PR; +ACET1TAB17 PO; +ALBU83IN INH; +ASPI81TAEC PO; +CALC1CAP31 PO; +CALC500C16 PO; +CARV3.12 PO; +COLA100C5 PO; +DOCU100T5 PO; +HYDR25TA PO; +NORV5TAB PO; +OMEP20CA3 PO; +PROC20004 SQ; +SENN1TAB10 PO; +VENL150C43 PO
== END ==
PROVIDERS: ATTEND Internal Medicine
DX: I50.9 Heart failure, unspecified (principal)

== ENCOUNTER 2017-03-24 09:20 | Inpatient (IN) | payer MEDICARE, MEDICAID ==
[2017-03-24] MEDS: ACETAMINOPHEN TAB 650MG DOSE (2X325MG) PO (10:14)
[2017-03-24 10:45] LABS: BASO % 0.2 % (0.0-1.0); EOS # 0.2 10^3/uL (0.0-0.50); EOS % 2.1 % (0.0-3.0); HEMATOCRIT 31.3 % (42.0-52.0); HEMOGLOBIN 10.3 g/dl (14.0-18.0); IMMATURE GRANULOCYTE # 0.1 10^3/uL (0-0); IMMATURE GRANULOCYTE % 0.5 % (0-0); MEAN CORPUSCULAR HEMOGLOBIN 30.5 pg (27.0-33.0); MEAN CORPUSCULAR HGB CONC 32.9 g/dl (32.0-36.5); MEAN CORPUSCULAR VOLUME 92.6 fl (80.0-96.0); MONO # 0.2 10^3/uL (0.0-0.8); MONO % 2.5 % (0.0-5.0); NEUTROPHILS # 8.6 10^3/uL (1.8-7.7); NEUTROPHILS % 93.7 % (36.0-66.0); PLATELET COUNT, AUTOMATED 180 10^3/uL (150-450); RED BLOOD COUNT 3.38 10^6/uL (4.30-6.10); RED CELL DISTRIBUTION WIDTH 15.8 % (11.5-14.5); WHITE BLOOD COUNT 9.2 10^3/uL (4.0-10.0)
[2017-03-24 11:02] LABS: LYMPH # 0.1 10^3/uL (1.5-4.5); POSITIVE DIFF POS FLAG
[2017-03-24 11:24] LABS: ANION GAP 9 MEQ/L (8-16); BLOOD UREA NITROGEN 17 MG/DL (7-18); CALCIUM LEVEL 8.2 MG/DL (8.8-10.2); CARBON DIOXIDE LEVEL 28 MEQ/L (21-32); CHLORIDE LEVEL 100 MEQ/L (98-107); CREATININE FOR GFR 3.37 MG/DL (0.70-1.30); GLUCOSE, FASTING 209 MG/DL (80-110); POTASSIUM SERUM 3.8 MEQ/L (3.5-5.1); SODIUM LEVEL 137 MEQ/L (136-145)
[2017-03-24 11:30] LABS: LACTIC ACID SEPSIS PROTOCOL 3.3 MMOL/L (0.4-2.0)
[2017-03-24 12:30] LABS: APPEARANCE, URINE CLOUDY (CLEAR); BACTERIA, URINE AUTO 1+ (NEGATIVE); BILIRUBIN, URINE AUTO NEGATIVE (NEGATIVE); BLOOD, URINE BLOOD 1+ (NEGATIVE); COLOR, URINE AMBER (YELLOW); GLUCOSE, URINE (UA) AUTO 1+ mg/dL (NEGATIVE); KETONE, URINE AUTO NEGATIVE (NEGATIVE); LEUKOCYTE ESTERASE, URINE AUTO 3+ (NEGATIVE); MUCUS, URINE SMALL (NEGATIVE); NITRITE, URINE AUTO NEGATIVE (NEGATIVE); PROTEIN, URINE AUTO 3+ mg/dL (NEGATIVE); RBC, URINE AUTO 6 /HPF (0-3); SPECIFIC GRAVITY URINE AUTO 1.018 (1.002-1.035); SQUAMOUS EPITHELIAL CELL UR AU 5 /HPF (0-6); UROBILINOGEN, URINE AUTO 0.2 mg/dL (0.0-2.0); WBC, URINE AUTO TNTC /HPF (0-3)
[2017-03-24] MEDS: CEFTRIAXONE SOD 1 GM in APPROPRIATE DILUENT 1 EA IV (13:40)
[2017-03-24] MEDS: SODIUM CHLORIDE 0.9% 1000 ML IV ×2 (13:45→15:00)
[2017-03-24] MEDS ORDERED: BISACODYL 10 MG SUPP PR (14:45)
[2017-03-24] MEDS ORDERED: ALBUTEROL SULFATE 2.5 MG/0.5 ML INH NEB SOLN INH (14:45)
[2017-03-24] MEDS ORDERED: GLUCAGON FOR INJ 1 MG VIAL (J1610) SC (14:45)
[2017-03-24] MEDS ORDERED: GLUCOSE 4 GM CHEW TABLET PO (14:45)
[2017-03-24] MEDS ORDERED: DEXTROSE 50% 50 ML SYRINGE IV (14:45)
[2017-03-24] MEDS ORDERED: ACETAMINOPHEN 325 MG TAB As Ordered (14:58)
[2017-03-24] MEDS: ACETAMINOPHEN 325 MG TAB PO (15:00)
[2017-03-24] MEDS ORDERED: VANCOMYCIN HCL 1,000 MG, VIAL MATE ADAPTER 1 EACH in D5W 250 ML IV (15:00)
[2017-03-24] MEDS: CALCIUM CARBONATE 500 MG CHEW U/D PO ×2 (16:32→21:33)
[2017-03-24] MEDS: PIPERACILLIN/TAZOBACTAM SOD 2.25 GM in APPROPRIATE DILUENT 1 EA IV (16:32)
[2017-03-24] MEDS: VITAMIN D 1,000 INTERNATIONAL UNITS TABLET PO ×2 (16:32→21:29)
[2017-03-24 17:01] LABS: BEDSIDE GLUCOSE 191 MG/DL (80-115)
[2017-03-24] MEDS: HumaLOG INSULIN (NovoLOG) PER UNIT SC ×2 (17:09→21:00)
[2017-03-24] MEDS: VANCOMYCIN HCL 1,000 MG, VIAL MATE ADAPTER 1 EACH in D5W 250 ML IV (18:00)
[2017-03-24] MEDS: IBUPROFEN 600 MG TAB PO (18:12)
[2017-03-24] MEDS: NS 1,000 ML IV ×2 (18:13→20:21)
[2017-03-24] MEDS: VANCOMYCIN HCL 500 MG in D5W MINI-BAG PLUS 100 ML IV (19:33)
[2017-03-24 19:54] LABS: LACTIC ACID SEPSIS PROTOCOL 2.6 MMOL/L (0.4-2.0)
[2017-03-24] MEDS ORDERED: CARVedilol 3.125 MG TAB PO (21:00)
[2017-03-24] MEDS: SENNA 8.6 MG TAB (SENOKOT) PO (21:00)
[2017-03-24] MEDS: DOCUSATE SODIUM 100 MG CAP PO (21:00)
[2017-03-24 21:25] LABS: ABG BASE EXCESS -2.5 (-2.0-2.0); ABG HCO3 22.3 MEQ/L (22.0-26.0); ABG PARTIAL PRESSURE CO2 38.7 mmHg (35.0-45.0); ABG PARTIAL PRESSURE O2 86.1 mmHg (75.0-100.0); ABG STANDARD HCO3 22.3 MEQ/L (22.0-26.0); ABG TOTAL CO2 23.5 MEQ/L (23.0-31.0); ABG pH (ARTERIAL) 7.379 UNITS (7.350-7.450)
[2017-03-24] MEDS: FERROUS SULFATE 325MG TAB PO (21:28)
[2017-03-24] MEDS: OMEPRAZOLE 20 MG CAP PO (21:29)
[2017-03-24] MEDS: OXcarbazepine 300 MG TAB PO (21:29)
[2017-03-24] MEDS: ATORVASTATIN 20 MG TAB PO (21:29)
[2017-03-24] MEDS: ACETAMINOPHEN 500 MG TAB PO (21:29)
[2017-03-24 21:42] LABS: BEDSIDE GLUCOSE 206 MG/DL (80-115)
[2017-03-25] MEDS: PIPERACILLIN/TAZOBACTAM SOD 2.25 GM in APPROPRIATE DILUENT 1 EA IV ×3 (01:09→18:30)
[2017-03-25] MEDS: NS 1,000 ML IV (06:28)
[2017-03-25] MEDS: metroNIDAZOLE (FLAGYL) 500 MG TAB PO (06:28)
[2017-03-25 06:56] LABS: HEMATOCRIT 26.9 % (42.0-52.0); HEMOGLOBIN 8.8 g/dl (14.0-18.0); MEAN CORPUSCULAR HEMOGLOBIN 30.3 pg (27.0-33.0); MEAN CORPUSCULAR HGB CONC 32.7 g/dl (32.0-36.5); MEAN CORPUSCULAR VOLUME 92.8 fl (80.0-96.0); PLATELET COUNT, AUTOMATED 133 10^3/uL (150-450); RED CELL DISTRIBUTION WIDTH 15.9 % (11.5-14.5); WHITE BLOOD COUNT 14.2 10^3/uL (4.0-10.0)
[2017-03-25 06:58] LABS: ADD MANUAL DIFFER YES; DIFF SLIDE NUMBER 90; LEFT SHIFT POS FLAG; POSITIVE DIFF POS FLAG; POSITIVE MORPH POS FLAG; WBC SCAT POS FLAG
[2017-03-25 07:14] LABS: LACTIC ACID SEPSIS PROTOCOL 1.6 MMOL/L (0.4-2.0)
[2017-03-25 07:15] LABS: ALBUMIN 2.1 GM/DL (3.2-5.2); ALBUMIN/GLOBULIN RATIO 0.49 (1.00-1.93); ALKALINE PHOSPHATASE 67 U/L (45-117); ALT/SGPT 21 U/L (12-78); ANION GAP 8 MEQ/L (8-16); AST/SGOT 20 U/L (7-37); BILIRUBIN,TOTAL 0.3 MG/DL (0.2-1.0); BLOOD UREA NITROGEN 26 MG/DL (7-18); CALCIUM LEVEL 7.6 MG/DL (8.8-10.2); CARBON DIOXIDE LEVEL 26 MEQ/L (21-32); CHLORIDE LEVEL 102 MEQ/L (98-107); CREATININE FOR GFR 4.03 MG/DL (0.70-1.30); GLOMERULAR FILTRATION RATE 16.2 (>49); GLUCOSE, FASTING 192 MG/DL (80-110); POTASSIUM SERUM 4.5 MEQ/L (3.5-5.1); SODIUM LEVEL 136 MEQ/L (136-145); TOTAL PROTEIN 6.4 GM/DL (6.4-8.2); VANCOMYCIN RANDOM 16.6 UG/ML
[2017-03-25 07:28] LABS: BANDS 3 % (< 11); METAMYELOCYTES 15 % (0-0); MONOCYTES 4 % (0-8); MYELOCYTES 2 % (0-0); NEUTROPHILS 76 % (35-75)
[2017-03-25 07:29] LABS: PLATELET ESTIMATE NORMAL (NORMAL)
[2017-03-25] MEDS ORDERED: VANCOMYCIN HCL 1,000 MG, VIAL MATE ADAPTER 1 EACH in D5W 250 ML IV (08:00)
[2017-03-25] MEDS: VENLAFAXINE **XR** 75MG CAPSULE PO (08:12)
[2017-03-25] MEDS: LACTOBACILLUS ACIDOPHILUS CAP (BACID) PO ×3 (08:12→17:17)
[2017-03-25] MEDS: HumaLOG INSULIN (NovoLOG) PER UNIT SC ×4 (08:12→21:00)
[2017-03-25] MEDS: FERROUS SULFATE 325MG TAB PO ×2 (08:12→21:38)
[2017-03-25] MEDS: DOCUSATE SODIUM 100 MG CAP PO ×3 (08:13→21:00)
[2017-03-25] MEDS: ASPIRIN 81 MG ENTERIC TAB PO (08:13)
[2017-03-25] MEDS: VITAMIN D 1,000 INTERNATIONAL UNITS TABLET PO ×3 (08:13→21:38)
[2017-03-25] MEDS: SENNA 8.6 MG TAB (SENOKOT) PO ×2 (08:13→08:15)
[2017-03-25] MEDS: CALCITRIOL 0.25 MCG CAP (S0169) PO (08:13)
[2017-03-25] MEDS: CALCIUM CARBONATE 500 MG CHEW U/D PO ×3 (08:13→21:38)
[2017-03-25] MEDS: OXcarbazepine 300 MG TAB PO ×2 (08:14→21:38)
[2017-03-25 11:41] LABS: BEDSIDE GLUCOSE 300 MG/DL (80-115)
[2017-03-25] MEDS: LIDOCAINE 1% SDV 5 ML VIAL SQ (13:30)
[2017-03-25] MEDS: HEPARIN 1,000 UNITS/ML 10ML VIAL (FOR RADIOLOGY& DIALYSIS ONLY) XX (13:30)
[2017-03-25] MEDS: HEPARIN 1,000 UNITS/ML 10ML VIAL (FOR RADIOLOGY& DIALYSIS ONLY) IV (13:30)
[2017-03-25] MEDS ORDERED: CEFTRIAXONE SOD 1 GM in APPROPRIATE DILUENT 1 EA IV (14:00)
[2017-03-25] MEDS: VANCOMYCIN HCL 1,000 MG, VIAL MATE ADAPTER 1 EACH in D5W 250 ML IV (17:18)
[2017-03-25] MEDS: CHECK TO SEE IF PATIENT IS RECEIVING DIALYSIS TODAY AND REFER TO THE VANCOMYCIN ORDER XX (17:18)
[2017-03-25] MEDS: ACETAMINOPHEN 500 MG TAB PO (17:18)
[2017-03-25 17:31] LABS: BEDSIDE GLUCOSE 97 MG/DL (80-115)
[2017-03-25] MEDS: IBUPROFEN 400 MG TAB PO (18:38)
[2017-03-25 21:05] LABS: BEDSIDE GLUCOSE 132 MG/DL (80-115)
[2017-03-25] MEDS: OMEPRAZOLE 20 MG CAP PO (21:38)
[2017-03-25] MEDS: PALIPERIDONE 3 MG ER TAB (INVEGA) PO (21:38)
[2017-03-25] MEDS: ATORVASTATIN 20 MG TAB PO (21:39)
[2017-03-25] MEDS: NS 250 ML IV (22:26)
[2017-03-25] MEDS: NS 500 ML IV (23:08)
[2017-03-26] MEDS: VANCOMYCIN ORAL SOL 250MG/5ML ORAL SYRINGE PO ×6 (00:20→23:57)
[2017-03-26] MEDS: NS 500 ML IV (00:24)
[2017-03-26] MEDS: PIPERACILLIN/TAZOBACTAM SOD 2.25 GM in APPROPRIATE DILUENT 1 EA IV ×2 (00:25→08:20)
[2017-03-26 06:41] LABS: HEMATOCRIT 25.3 % (42.0-52.0); MEAN CORPUSCULAR HEMOGLOBIN 29.7 pg (27.0-33.0); MEAN CORPUSCULAR HGB CONC 31.6 g/dl (32.0-36.5); MEAN CORPUSCULAR VOLUME 94.1 fl (80.0-96.0); PLATELET COUNT, AUTOMATED 113 10^3/uL (150-450); RED BLOOD COUNT 2.69 10^6/uL (4.30-6.10); RED CELL DISTRIBUTION WIDTH 15.9 % (11.5-14.5); WHITE BLOOD COUNT 8.5 10^3/uL (4.0-10.0)
[2017-03-26 06:46] LABS: ADD MANUAL DIFFER YES; DIFF SLIDE NUMBER 53; LEFT SHIFT POS FLAG; POS COUNT POS FLAG; POSITIVE MORPH POS FLAG; WBC SCAT POS FLAG
[2017-03-26 06:52] LABS: ALBUMIN/GLOBULIN RATIO 0.51 (1.00-1.93); ALKALINE PHOSPHATASE 71 U/L (45-117); ALT/SGPT 23 U/L (12-78); ANION GAP 6 MEQ/L (8-16); AST/SGOT 28 U/L (7-37); BILIRUBIN,TOTAL 0.4 MG/DL (0.2-1.0); BLOOD UREA NITROGEN 19 MG/DL (7-18); CARBON DIOXIDE LEVEL 30 MEQ/L (21-32); CHLORIDE LEVEL 103 MEQ/L (98-107); CREATININE FOR GFR 2.97 MG/DL (0.70-1.30); GLOMERULAR FILTRATION RATE 23.1 (>49); GLUCOSE, FASTING 154 MG/DL (80-110); POTASSIUM SERUM 3.5 MEQ/L (3.5-5.1); SODIUM LEVEL 139 MEQ/L (136-145); TOTAL PROTEIN 5.9 GM/DL (6.4-8.2)
[2017-03-26 07:37] LABS: BANDS 4 % (< 11); EOSINOPHILS 2 % (0-5); LYMPHOCYTES 5 % (16-52); METAMYELOCYTES 7 % (0-0); MONOCYTES 11 % (0-8); NEUTROPHILS 71 % (35-75); PLATELET ESTIMATE NORMAL (NORMAL)
[2017-03-26] MEDS: VENLAFAXINE **XR** 75MG CAPSULE PO (08:19)
[2017-03-26] MEDS: LACTOBACILLUS ACIDOPHILUS CAP (BACID) PO ×3 (08:19→17:18)
[2017-03-26] MEDS: HumaLOG INSULIN (NovoLOG) PER UNIT SC ×4 (08:19→20:48)
[2017-03-26] MEDS: POTASSIUM CHLORIDE 10 MEQ SR TABLET PO ×2 (08:19→21:02)
[2017-03-26] MEDS: CALCIUM CARBONATE 500 MG CHEW U/D PO ×3 (08:19→21:03)
[2017-03-26] MEDS: OXcarbazepine 300 MG TAB PO ×2 (08:20→21:02)
[2017-03-26] MEDS: VITAMIN D 1,000 INTERNATIONAL UNITS TABLET PO ×2 (08:20→15:32)
[2017-03-26] MEDS: FERROUS SULFATE 325MG TAB PO ×2 (08:20→21:02)
[2017-03-26] MEDS: DOCUSATE SODIUM 100 MG CAP PO (08:20)
[2017-03-26] MEDS: ASPIRIN 81 MG ENTERIC TAB PO (08:20)
[2017-03-26] MEDS: HEPARIN 1,000 UNITS/ML 10ML VIAL (FOR RADIOLOGY& DIALYSIS ONLY) IV (10:00)
[2017-03-26] MEDS: HEPARIN 1,000 UNITS/ML 10ML VIAL (FOR RADIOLOGY& DIALYSIS ONLY) XX (10:00)
[2017-03-26] MEDS: VANCOMYCIN HCL 1,000 MG, VIAL MATE ADAPTER 1 EACH in D5W 250 ML IV (15:32)
[2017-03-26] MEDS: CHECK TO SEE IF PATIENT IS RECEIVING DIALYSIS TODAY AND REFER TO THE VANCOMYCIN ORDER XX (15:33)
[2017-03-26 16:37] LABS: BEDSIDE GLUCOSE 159 MG/DL (80-115)
[2017-03-26 20:27] LABS: BEDSIDE GLUCOSE 235 MG/DL (80-115)
[2017-03-26] MEDS: ATORVASTATIN 20 MG TAB PO (21:01)
[2017-03-26] MEDS: OMEPRAZOLE 20 MG CAP PO (21:02)
[2017-03-26] MEDS: ACETAMINOPHEN 500 MG TAB PO (21:02)
[2017-03-26] MEDS: PALIPERIDONE 3 MG ER TAB (INVEGA) PO (21:03)
[2017-03-27] MEDS: ACETAMINOPHEN 500 MG TAB PO ×2 (03:28→20:28)
[2017-03-27 05:44] LABS: HEMATOCRIT 25.7 % (42.0-52.0); HEMOGLOBIN 8.2 g/dl (14.0-18.0); MEAN CORPUSCULAR HEMOGLOBIN 30.5 pg (27.0-33.0); MEAN CORPUSCULAR HGB CONC 31.9 g/dl (32.0-36.5); MEAN CORPUSCULAR VOLUME 95.5 fl (80.0-96.0); PLATELET COUNT, AUTOMATED 118 10^3/uL (150-450); RED BLOOD COUNT 2.69 10^6/uL (4.30-6.10); RED CELL DISTRIBUTION WIDTH 15.9 % (11.5-14.5); WHITE BLOOD COUNT 7.9 10^3/uL (4.0-10.0)
[2017-03-27] MEDS: VANCOMYCIN ORAL SOL 250MG/5ML ORAL SYRINGE PO ×3 (05:52→17:11)
[2017-03-27 05:54] LABS: ADD MANUAL DIFFER YES; DIFF SLIDE NUMBER 35; LEFT SHIFT POS FLAG; POSITIVE MORPH POS FLAG; WBC SCAT POS FLAG
[2017-03-27 06:03] LABS: ALBUMIN/GLOBULIN RATIO 0.51 (1.00-1.93); ALKALINE PHOSPHATASE 126 U/L (45-117); ALT/SGPT 24 U/L (12-78); ANION GAP 5 MEQ/L (8-16); AST/SGOT 25 U/L (7-37); BILIRUBIN,TOTAL 0.3 MG/DL (0.2-1.0); BLOOD UREA NITROGEN 15 MG/DL (7-18); CALCIUM LEVEL 7.4 MG/DL (8.8-10.2); CARBON DIOXIDE LEVEL 30 MEQ/L (21-32); CHLORIDE LEVEL 102 MEQ/L (98-107); CREATININE FOR GFR 2.63 MG/DL (0.70-1.30); GLOMERULAR FILTRATION RATE 26.6 (>49); GLUCOSE, FASTING 169 MG/DL (80-110); POTASSIUM SERUM 4.3 MEQ/L (3.5-5.1); SODIUM LEVEL 137 MEQ/L (136-145); TOTAL PROTEIN 5.9 GM/DL (6.4-8.2); VANCOMYCIN LEVEL TROUGH 21.8 UG/ML (10.0-20.0)
[2017-03-27 06:31] LABS: EOSINOPHILS 7 % (0-5); LYMPHOCYTES 2 % (16-52); METAMYELOCYTES 3 % (0-0); MONOCYTES 7 % (0-8); MYELOCYTES 1 % (0-0); NEUTROPHILS 80 % (35-75); PLATELET ESTIMATE NORMAL (NORMAL)
[2017-03-27] MEDS: CALCIUM CARBONATE 500 MG CHEW U/D PO ×3 (08:13→20:27)
[2017-03-27] MEDS: HumaLOG INSULIN (NovoLOG) PER UNIT SC ×4 (08:13→20:28)
[2017-03-27] MEDS: FERROUS SULFATE 325MG TAB PO ×2 (08:14→20:27)
[2017-03-27] MEDS: VITAMIN D 1,000 INTERNATIONAL UNITS TABLET PO (08:14)
[2017-03-27] MEDS: CALCITRIOL 0.25 MCG CAP (S0169) PO (08:14)
[2017-03-27] MEDS: ASPIRIN 81 MG ENTERIC TAB PO (08:14)
[2017-03-27] MEDS: OXcarbazepine 300 MG TAB PO ×2 (08:14→20:27)
[2017-03-27] MEDS: LACTOBACILLUS ACIDOPHILUS CAP (BACID) PO ×3 (08:14→17:10)
[2017-03-27] MEDS: VENLAFAXINE **XR** 75MG CAPSULE PO (08:14)
[2017-03-27 11:29] LABS: BEDSIDE GLUCOSE 246 MG/DL (80-115)
[2017-03-27] MEDS: CHECK TO SEE IF PATIENT IS RECEIVING DIALYSIS TODAY AND REFER TO THE VANCOMYCIN ORDER XX (16:19)
[2017-03-27 17:04] LABS: ABG BASE EXCESS 1.1 (-2.0-2.0); ABG HCO3 25.3 MEQ/L (22.0-26.0); ABG O2 SATURATION 98.1 % (95.0-99.0); ABG PARTIAL PRESSURE CO2 38.3 mmHg (35.0-45.0); ABG STANDARD HCO3 25.4 MEQ/L (22.0-26.0); ABG TOTAL CO2 26.4 MEQ/L (23.0-31.0); ABG pH (ARTERIAL) 7.437 UNITS (7.350-7.450)
[2017-03-27 17:06] LABS: ABG PARTIAL PRESSURE O2 111.7 mmHg (75.0-100.0)
[2017-03-27 20:27] LABS: BEDSIDE GLUCOSE 171 MG/DL (80-115)
[2017-03-27] MEDS: OMEPRAZOLE 20 MG CAP PO (20:27)
[2017-03-27] MEDS: PALIPERIDONE 3 MG ER TAB (INVEGA) PO (20:27)
[2017-03-27] MEDS: ATORVASTATIN 20 MG TAB PO (20:27)
[2017-03-27 20:30] LABS: BEDSIDE GLUCOSE 118 MG/DL (80-115)
[2017-03-28] MEDS: VANCOMYCIN ORAL SOL 250MG/5ML ORAL SYRINGE PO ×4 (00:04→17:32)
[2017-03-28 05:14] LABS: HEMATOCRIT 25.2 % (42.0-52.0); HEMOGLOBIN 7.9 g/dl (14.0-18.0); MEAN CORPUSCULAR HEMOGLOBIN 30.4 pg (27.0-33.0); MEAN CORPUSCULAR HGB CONC 31.3 g/dl (32.0-36.5); MEAN CORPUSCULAR VOLUME 96.9 fl (80.0-96.0); PLATELET COUNT, AUTOMATED 107 10^3/uL (150-450); RED CELL DISTRIBUTION WIDTH 15.9 % (11.5-14.5); WHITE BLOOD COUNT 8.1 10^3/uL (4.0-10.0)
[2017-03-28 05:22] LABS: ADD MANUAL DIFFER YES; DIFF SLIDE NUMBER 19; LEFT SHIFT POS FLAG; POSITIVE MORPH POS FLAG
[2017-03-28 05:34] LABS: ALBUMIN 2.1 GM/DL (3.2-5.2); ALBUMIN/GLOBULIN RATIO 0.53 (1.00-1.93); ALKALINE PHOSPHATASE 165 U/L (45-117); ALT/SGPT 26 U/L (12-78); ANION GAP 5 MEQ/L (8-16); AST/SGOT 24 U/L (7-37); BILIRUBIN,TOTAL 0.3 MG/DL (0.2-1.0); BLOOD UREA NITROGEN 26 MG/DL (7-18); CALCIUM LEVEL 7.5 MG/DL (8.8-10.2); CARBON DIOXIDE LEVEL 30 MEQ/L (21-32); CHLORIDE LEVEL 102 MEQ/L (98-107); CREATININE FOR GFR 3.74 MG/DL (0.70-1.30); GLOMERULAR FILTRATION RATE 17.7 (>49); GLUCOSE, FASTING 204 MG/DL (80-110); POTASSIUM SERUM 4.3 MEQ/L (3.5-5.1); SODIUM LEVEL 137 MEQ/L (136-145); TOTAL PROTEIN 6.1 GM/DL (6.4-8.2); VANCOMYCIN RANDOM 17.4 UG/ML
[2017-03-28 05:55] LABS: ATYPICAL LYMPH 1 % (0-5); BANDS 2 % (< 11); EOSINOPHILS 5 % (0-5); LYMPHOCYTES 7 % (16-52); METAMYELOCYTES 1 % (0-0); MONOCYTES 5 % (0-8); MYELOCYTES 1 % (0-0); NEUTROPHILS 78 % (35-75); PLATELET ESTIMATE DECREASED (NORMAL)
[2017-03-28] MEDS: HumaLOG INSULIN (NovoLOG) PER UNIT SC ×4 (07:30→20:13)
[2017-03-28] MEDS: LACTOBACILLUS ACIDOPHILUS CAP (BACID) PO ×3 (08:00→17:32)
[2017-03-28 10:43] LABS: BEDSIDE GLUCOSE 149 MG/DL (80-115)
[2017-03-28] MEDS ORDERED: ALBUTEROL SULFATE 2.5 MG/0.5 ML INH NEB SOLN As Ordered (11:01)
[2017-03-28] MEDS ORDERED: LIDOCAINE 2% INJ 100 MG/5 ML SDV (FOR ANES.) As Ordered (11:35)
[2017-03-28] MEDS ORDERED: MIDAZOLAM INJ 2 MG/2 ML VIAL (J2250) As Ordered (11:35)
[2017-03-28] MEDS: ALBUTEROL SULFATE 2.5 MG/0.5 ML INH NEB SOLN INH (11:49)
[2017-03-28] MEDS: CALCIUM CARBONATE 500 MG CHEW U/D PO ×3 (12:37→20:11)
[2017-03-28] MEDS: VENLAFAXINE **XR** 75MG CAPSULE PO (12:37)
[2017-03-28] MEDS: VITAMIN D 1,000 INTERNATIONAL UNITS TABLET PO (12:37)
[2017-03-28] MEDS: OXcarbazepine 300 MG TAB PO ×2 (12:38→20:11)
[2017-03-28] MEDS: FERROUS SULFATE 325MG TAB PO ×2 (12:38→20:11)
[2017-03-28] MEDS: ASPIRIN 81 MG ENTERIC TAB PO (12:38)
[2017-03-28] MEDS: VANCOMYCIN HCL 500 MG in D5W MINI-BAG PLUS 100 ML IV (12:38)
[2017-03-28 12:55] LABS: BEDSIDE GLUCOSE 142 MG/DL (80-115)
[2017-03-28] MEDS ORDERED: ONDANSETRON 4MG/2ML VIAL (J2405) IV (13:00)
[2017-03-28] MEDS: LR 1,000 ML IV (13:00)
[2017-03-28] MEDS: CHECK TO SEE IF PATIENT IS RECEIVING DIALYSIS TODAY AND REFER TO THE VANCOMYCIN ORDER XX (16:00)
[2017-03-28] MEDS: ATORVASTATIN 20 MG TAB PO (20:11)
[2017-03-28] MEDS: PALIPERIDONE 3 MG ER TAB (INVEGA) PO (20:11)
[2017-03-28] MEDS: OMEPRAZOLE 20 MG CAP PO (20:11)
[2017-03-28 21:55] LABS: BEDSIDE GLUCOSE 143 MG/DL (80-115)
[2017-03-28 21:55] LABS: BEDSIDE GLUCOSE 215 MG/DL (80-115)
[2017-03-29] MEDS: VANCOMYCIN ORAL SOL 250MG/5ML ORAL SYRINGE PO ×4 (00:43→18:09)
[2017-03-29 05:06] LABS: BASO % 0.4 % (0.0-1.0); EOS # 0.9 10^3/uL (0.0-0.50); EOS % 9.5 % (0.0-3.0); HEMATOCRIT 25.2 % (42.0-52.0); HEMOGLOBIN 7.9 g/dl (14.0-18.0); IMMATURE GRANULOCYTE # 0.3 10^3/uL (0-0); IMMATURE GRANULOCYTE % 3.5 % (0-0); LYMPH % 11.1 % (24.0-44.0); MEAN CORPUSCULAR HEMOGLOBIN 30.4 pg (27.0-33.0); MEAN CORPUSCULAR HGB CONC 31.3 g/dl (32.0-36.5); MEAN CORPUSCULAR VOLUME 96.9 fl (80.0-96.0); MONO # 0.9 10^3/uL (0.0-0.8); MONO % 9.9 % (0.0-5.0); NEUTROPHILS # 6.1 10^3/uL (1.8-7.7); NEUTROPHILS % 65.6 % (36.0-66.0); PLATELET COUNT, AUTOMATED 120 10^3/uL (150-450); RED CELL DISTRIBUTION WIDTH 15.7 % (11.5-14.5); WHITE BLOOD COUNT 9.3 10^3/uL (4.0-10.0)
[2017-03-29 05:49] LABS: ALBUMIN 2.2 GM/DL (3.2-5.2); ALKALINE PHOSPHATASE 142 U/L (45-117); ALT/SGPT 25 U/L (12-78); ANION GAP 5 MEQ/L (8-16); AST/SGOT 20 U/L (7-37); BILIRUBIN,TOTAL 0.3 MG/DL (0.2-1.0); BLOOD UREA NITROGEN 34 MG/DL (7-18); CALCIUM LEVEL 7.8 MG/DL (8.8-10.2); CARBON DIOXIDE LEVEL 30 MEQ/L (21-32); CHLORIDE LEVEL 101 MEQ/L (98-107); CREATININE FOR GFR 4.48 MG/DL (0.70-1.30); GLOMERULAR FILTRATION RATE 14.4 (>49); GLUCOSE, FASTING 170 MG/DL (80-110); POTASSIUM SERUM 4.7 MEQ/L (3.5-5.1); SODIUM LEVEL 136 MEQ/L (136-145); TOTAL PROTEIN 6.6 GM/DL (6.4-8.2); VANCOMYCIN RANDOM 20.5 UG/ML
[2017-03-29] MEDS: HumaLOG INSULIN (NovoLOG) PER UNIT SC ×4 (08:31→20:16)
[2017-03-29] MEDS: LACTOBACILLUS ACIDOPHILUS CAP (BACID) PO ×3 (08:32→18:10)
[2017-03-29] MEDS: VITAMIN D 1,000 INTERNATIONAL UNITS TABLET PO (08:32)
[2017-03-29] MEDS: CALCIUM CARBONATE 500 MG CHEW U/D PO ×3 (08:32→20:27)
[2017-03-29] MEDS: FERROUS SULFATE 325MG TAB PO ×2 (08:32→20:27)
[2017-03-29] MEDS: VENLAFAXINE **XR** 75MG CAPSULE PO (08:32)
[2017-03-29] MEDS: ASPIRIN 81 MG ENTERIC TAB PO (08:32)
[2017-03-29] MEDS: OXcarbazepine 300 MG TAB PO ×2 (08:32→20:27)
[2017-03-29 15:29] LABS: AMORPHOUS SEDIMENT SMALL (NEGATIVE); APPEARANCE, URINE CLOUDY (CLEAR); BACTERIA, URINE AUTO 1+ (NEGATIVE); BILIRUBIN, URINE AUTO NEGATIVE (NEGATIVE); BLOOD, URINE BLOOD 1+ (NEGATIVE); COLOR, URINE YELLOW (YELLOW); GLUCOSE, URINE (UA) AUTO 1+ mg/dL (NEGATIVE); KETONE, URINE AUTO NEGATIVE (NEGATIVE); LEUKOCYTE ESTERASE, URINE AUTO 2+ (NEGATIVE); NITRITE, URINE AUTO NEGATIVE (NEGATIVE); PROTEIN, URINE AUTO 3+ mg/dL (NEGATIVE); RBC, URINE AUTO 9 /HPF (0-3); SPECIFIC GRAVITY URINE AUTO 1.012 (1.002-1.035); SQUAMOUS EPITHELIAL CELL UR AU 2 /HPF (0-6); UROBILINOGEN, URINE AUTO 0.2 mg/dL (0.0-2.0); WBC, URINE AUTO 44 /HPF (0-3)
[2017-03-29] MEDS: CHECK TO SEE IF PATIENT IS RECEIVING DIALYSIS TODAY AND REFER TO THE VANCOMYCIN ORDER XX (16:00)
[2017-03-29 16:10] LABS: BEDSIDE GLUCOSE 159 MG/DL (80-115)
[2017-03-29 17:33] LABS: BEDSIDE GLUCOSE 135 MG/DL (80-115)
[2017-03-29] MEDS: ACETAMINOPHEN 500 MG TAB PO (18:09)
[2017-03-29 20:19] LABS: BEDSIDE GLUCOSE 208 MG/DL (80-115)
[2017-03-29] MEDS: OMEPRAZOLE 20 MG CAP PO (20:26)
[2017-03-29] MEDS: ATORVASTATIN 20 MG TAB PO (20:26)
[2017-03-29] MEDS: PALIPERIDONE 3 MG ER TAB (INVEGA) PO (20:27)
[2017-03-30] MEDS: VANCOMYCIN ORAL SOL 250MG/5ML ORAL SYRINGE PO ×5 (00:17→23:42)
[2017-03-30 04:14] LABS: HEMATOCRIT 24.5 % (42.0-52.0); HEMOGLOBIN 7.9 g/dl (14.0-18.0); MEAN CORPUSCULAR HEMOGLOBIN 30.7 pg (27.0-33.0); MEAN CORPUSCULAR HGB CONC 32.2 g/dl (32.0-36.5); MEAN CORPUSCULAR VOLUME 95.3 fl (80.0-96.0); PLATELET COUNT, AUTOMATED 140 10^3/uL (150-450); RED BLOOD COUNT 2.57 10^6/uL (4.30-6.10); RED CELL DISTRIBUTION WIDTH 15.6 % (11.5-14.5)
[2017-03-30 04:34] LABS: ADD MANUAL DIFFER YES; DIFF SLIDE NUMBER 10; POS COUNT POS FLAG; POSITIVE MORPH POS FLAG
[2017-03-30 04:36] LABS: ALBUMIN 2.2 GM/DL (3.2-5.2); ALBUMIN/GLOBULIN RATIO 0.52 (1.00-1.93); ALKALINE PHOSPHATASE 153 U/L (45-117); ALT/SGPT 22 U/L (12-78); ANION GAP 5 MEQ/L (8-16); AST/SGOT 17 U/L (7-37); BILIRUBIN,TOTAL 0.3 MG/DL (0.2-1.0); BLOOD UREA NITROGEN 40 MG/DL (7-18); CALCIUM LEVEL 7.9 MG/DL (8.8-10.2); CARBON DIOXIDE LEVEL 30 MEQ/L (21-32); CHLORIDE LEVEL 103 MEQ/L (98-107); CREATININE FOR GFR 4.84 MG/DL (0.70-1.30); GLOMERULAR FILTRATION RATE 13.2 (>49); GLUCOSE, FASTING 153 MG/DL (80-110); POTASSIUM SERUM 4.6 MEQ/L (3.5-5.1); SODIUM LEVEL 138 MEQ/L (136-145); TOTAL PROTEIN 6.4 GM/DL (6.4-8.2)
[2017-03-30 05:19] LABS: ANISOCYTOSIS 1+; BANDS 1 % (< 11); BASOPHILS 1 % (0-4); EOSINOPHILS 14 % (0-5); LYMPHOCYTES 19 % (16-52); METAMYELOCYTES 1 % (0-0); MONOCYTES 6 % (0-8); MYELOCYTES 1 % (0-0); NEUTROPHILS 57 % (35-75); PLATELET ESTIMATE DECREASED (NORMAL)
[2017-03-30] MEDS: HumaLOG INSULIN (NovoLOG) PER UNIT SC ×4 (08:32→20:29)
[2017-03-30] MEDS: VENLAFAXINE **XR** 75MG CAPSULE PO (08:32)
[2017-03-30] MEDS: LACTOBACILLUS ACIDOPHILUS CAP (BACID) PO ×3 (08:32→18:17)
[2017-03-30] MEDS: OXcarbazepine 300 MG TAB PO ×2 (08:32→20:28)
[2017-03-30] MEDS: ASPIRIN 81 MG ENTERIC TAB PO (08:32)
[2017-03-30] MEDS: VITAMIN D 1,000 INTERNATIONAL UNITS TABLET PO (08:32)
[2017-03-30] MEDS: CALCITRIOL 0.25 MCG CAP (S0169) PO (08:32)
[2017-03-30] MEDS: FERROUS SULFATE 325MG TAB PO ×2 (08:32→20:29)
[2017-03-30] MEDS: CALCIUM CARBONATE 500 MG CHEW U/D PO ×3 (08:32→20:29)
[2017-03-30] MEDS ORDERED: HEPARIN SOD (PORCINE) 5000 UNITS/ML VIAL SQ (11:00)
[2017-03-30] MEDS: HEPARIN 1,000 UNITS/ML 10ML VIAL (FOR RADIOLOGY& DIALYSIS ONLY) XX (11:15)
[2017-03-30 12:33] LABS: BEDSIDE GLUCOSE 179 MG/DL (80-115)
[2017-03-30] MEDS: CHECK TO SEE IF PATIENT IS RECEIVING DIALYSIS TODAY AND REFER TO THE VANCOMYCIN ORDER XX (15:47)
[2017-03-30 17:32] LABS: BEDSIDE GLUCOSE 84 MG/DL (80-115)
[2017-03-30 20:06] LABS: BEDSIDE GLUCOSE 138 MG/DL (80-115)
[2017-03-30] MEDS: PALIPERIDONE 3 MG ER TAB (INVEGA) PO (20:28)
[2017-03-30] MEDS: ATORVASTATIN 20 MG TAB PO (20:29)
[2017-03-30] MEDS: OMEPRAZOLE 20 MG CAP PO (20:29)
[2017-03-31] MEDS: VANCOMYCIN ORAL SOL 250MG/5ML ORAL SYRINGE PO ×3 (05:25→17:06)
[2017-03-31 05:53] LABS: HEMOGLOBIN 7.7 g/dl (14.0-18.0); MEAN CORPUSCULAR HEMOGLOBIN 30.4 pg (27.0-33.0); MEAN CORPUSCULAR HGB CONC 32.1 g/dl (32.0-36.5); MEAN CORPUSCULAR VOLUME 94.9 fl (80.0-96.0); PLATELET COUNT, AUTOMATED 147 10^3/uL (150-450); RED BLOOD COUNT 2.53 10^6/uL (4.30-6.10); WHITE BLOOD COUNT 7.6 10^3/uL (4.0-10.0)
[2017-03-31 05:55] LABS: ADD MANUAL DIFFER YES; DIFF SLIDE NUMBER 9; POS COUNT POS FLAG; POSITIVE MORPH POS FLAG
[2017-03-31 06:28] LABS: ALBUMIN 2.4 GM/DL (3.2-5.2); ALBUMIN/GLOBULIN RATIO 0.59 (1.00-1.93); ALKALINE PHOSPHATASE 175 U/L (45-117); ALT/SGPT 23 U/L (12-78); ANION GAP 6 MEQ/L (8-16); AST/SGOT 18 U/L (7-37); BILIRUBIN,TOTAL 0.3 MG/DL (0.2-1.0); BLOOD UREA NITROGEN 43 MG/DL (7-18); CALCIUM LEVEL 8.2 MG/DL (8.8-10.2); CARBON DIOXIDE LEVEL 29 MEQ/L (21-32); CHLORIDE LEVEL 104 MEQ/L (98-107); CREATININE FOR GFR 4.91 MG/DL (0.70-1.30); GLOMERULAR FILTRATION RATE 12.9 (>49); GLUCOSE, FASTING 176 MG/DL (80-110); POTASSIUM SERUM 5.1 MEQ/L (3.5-5.1); SODIUM LEVEL 139 MEQ/L (136-145); TOTAL PROTEIN 6.5 GM/DL (6.4-8.2); VANCOMYCIN RANDOM 16.3 UG/ML
[2017-03-31 06:35] LABS: ANISOCYTOSIS 1+; EOSINOPHILS 14 % (0-5); HYPOCHROMASIA 1+; LYMPHOCYTES 17 % (16-52); METAMYELOCYTES 2 % (0-0); MONOCYTES 5 % (0-8); MYELOCYTES 5 % (0-0); NEUTROPHILS 57 % (35-75); POIKILOCYTOSIS 1+
[2017-03-31 06:36] LABS: PLATELET ESTIMATE NORMAL (NORMAL)
[2017-03-31] MEDS: LACTOBACILLUS ACIDOPHILUS CAP (BACID) PO ×3 (06:39→17:07)
[2017-03-31] MEDS: VENLAFAXINE **XR** 75MG CAPSULE PO (06:40)
[2017-03-31] MEDS: ASPIRIN 81 MG ENTERIC TAB PO (06:40)
[2017-03-31] MEDS: FERROUS SULFATE 325MG TAB PO ×2 (06:40→21:48)
[2017-03-31] MEDS: OXcarbazepine 300 MG TAB PO ×2 (06:41→21:48)
[2017-03-31] MEDS: CALCIUM CARBONATE 500 MG CHEW U/D PO ×3 (06:41→21:48)
[2017-03-31] MEDS: VITAMIN D 1,000 INTERNATIONAL UNITS TABLET PO (06:41)
[2017-03-31] MEDS: HumaLOG INSULIN (NovoLOG) PER UNIT SC ×4 (06:42→20:26)
[2017-03-31 10:43] LABS: IMMEDIATE SPIN CROSSMATCH 1 2
[2017-03-31] MEDS: HEPARIN 1,000 UNITS/ML 10ML VIAL (FOR RADIOLOGY& DIALYSIS ONLY) IV (10:45)
[2017-03-31 13:10] LABS: BEDSIDE GLUCOSE 126 MG/DL (80-115)
[2017-03-31] MEDS: VANCOMYCIN HCL 1,000 MG, VIAL MATE ADAPTER 1 EACH in D5W 250 ML IV (13:17)
[2017-03-31] MEDS: **hydrALAZINE HCL** 25 MG TAB PO ×2 (14:45→21:43)
[2017-03-31] MEDS: amLODIPine 5 MG TAB PO (14:46)
[2017-03-31] MEDS: TAMSULOSIN 0.4 MG CAP PO (14:48)
[2017-03-31] MEDS: CHECK TO SEE IF PATIENT IS RECEIVING DIALYSIS TODAY AND REFER TO THE VANCOMYCIN ORDER XX (16:00)
[2017-03-31 16:46] LABS: BEDSIDE GLUCOSE 186 MG/DL (80-115)
[2017-03-31 18:23] LABS: HEMATOCRIT 26.8 % (42.0-52.0); HEMOGLOBIN 8.8 g/dl (14.0-18.0)
[2017-03-31 20:39] LABS: BEDSIDE GLUCOSE 152 MG/DL (80-115)
[2017-03-31] MEDS: PALIPERIDONE 3 MG ER TAB (INVEGA) PO (21:47)
[2017-03-31] MEDS: ATORVASTATIN 20 MG TAB PO (21:48)
[2017-03-31] MEDS: OMEPRAZOLE 20 MG CAP PO (21:48)
[2017-04-01] MEDS: VANCOMYCIN ORAL SOL 250MG/5ML ORAL SYRINGE PO ×4 (00:40→18:03)
[2017-04-01 01:20] LABS: ALBUMIN 2.3 GM/DL (3.2-5.2); ANION GAP 5 MEQ/L (8-16); BLOOD UREA NITROGEN 27 MG/DL (7-18); CALCIUM LEVEL 7.7 MG/DL (8.8-10.2); CARBON DIOXIDE LEVEL 32 MEQ/L (21-32); CHLORIDE LEVEL 100 MEQ/L (98-107); CREATININE FOR GFR 3.09 MG/DL (0.70-1.30); GLOMERULAR FILTRATION RATE 22.1 (>49); GLUCOSE, FASTING 166 MG/DL (80-110); MAGNESIUM LEVEL 1.5 MG/DL (1.8-2.4); PHOSPHORUS LEVEL 2.1 MG/DL (2.5-4.9); POTASSIUM SERUM 4.3 MEQ/L (3.5-5.1); SODIUM LEVEL 137 MEQ/L (136-145)
[2017-04-01 01:21] LABS: BEDSIDE GLUCOSE 167 MG/DL (80-115)
[2017-04-01] MEDS: MAG SULF 1GM/100ML (MAG RUN) 1 GM in APPROPRIATE DILUENT 1 EA IV (02:24)
[2017-04-01 05:42] LABS: HEMATOCRIT 27.1 % (42.0-52.0); HEMOGLOBIN 8.9 g/dl (14.0-18.0); MEAN CORPUSCULAR HEMOGLOBIN 29.4 pg (27.0-33.0); MEAN CORPUSCULAR HGB CONC 32.8 g/dl (32.0-36.5); MEAN CORPUSCULAR VOLUME 89.4 fl (80.0-96.0); PLATELET COUNT, AUTOMATED 162 10^3/uL (150-450); RED BLOOD COUNT 3.03 10^6/uL (4.30-6.10); RED CELL DISTRIBUTION WIDTH 15.9 % (11.5-14.5); WHITE BLOOD COUNT 8.9 10^3/uL (4.0-10.0)
[2017-04-01 05:48] LABS: ADD MANUAL DIFFER YES; DIFF SLIDE NUMBER 65; LEFT SHIFT POS FLAG; POS COUNT POS FLAG; POSITIVE MORPH POS FLAG
[2017-04-01] MEDS: **hydrALAZINE HCL** 25 MG TAB PO ×3 (05:59→21:04)
[2017-04-01 06:05] LABS: ANION GAP 6 MEQ/L (8-16); BLOOD UREA NITROGEN 28 MG/DL (7-18); CALCIUM LEVEL 7.6 MG/DL (8.8-10.2); CARBON DIOXIDE LEVEL 29 MEQ/L (21-32); CHLORIDE LEVEL 103 MEQ/L (98-107); CREATININE FOR GFR 3.09 MG/DL (0.70-1.30); GLOMERULAR FILTRATION RATE 22.1 (>49); GLUCOSE, FASTING 186 MG/DL (80-110); POTASSIUM SERUM 4.5 MEQ/L (3.5-5.1); SODIUM LEVEL 138 MEQ/L (136-145); VANCOMYCIN RANDOM 19.2 UG/ML
[2017-04-01 06:06] LABS: ALBUMIN 2.3 GM/DL (3.2-5.2); ANION GAP 6 MEQ/L (8-16); BLOOD UREA NITROGEN 28 MG/DL (7-18); CALCIUM LEVEL 8.1 MG/DL (8.8-10.2); CARBON DIOXIDE LEVEL 31 MEQ/L (21-32); CHLORIDE LEVEL 100 MEQ/L (98-107); CREATININE FOR GFR 3.18 MG/DL (0.70-1.30); GLOMERULAR FILTRATION RATE 21.4 (>49); GLUCOSE, FASTING 182 MG/DL (80-110); MAGNESIUM LEVEL 2.1 MG/DL (1.8-2.4); PHOSPHORUS LEVEL 2.3 MG/DL (2.5-4.9); POTASSIUM SERUM 4.4 MEQ/L (3.5-5.1); SODIUM LEVEL 137 MEQ/L (136-145)
[2017-04-01 06:39] LABS: ANISOCYTOSIS 1+; BANDS 4 % (< 11); EOSINOPHILS 8 % (0-5); LYMPHOCYTES 18 % (16-52); METAMYELOCYTES 3 % (0-0); MICROCYTOSIS 1+; MONOCYTES 8 % (0-8); MYELOCYTES 4 % (0-0); NEUTROPHILS 55 % (35-75); PLATELET ESTIMATE NORMAL (NORMAL)
[2017-04-01 06:40] LABS: TOXIC GRANULATION 1+
[2017-04-01] MEDS: TAMSULOSIN 0.4 MG CAP PO (08:21)
[2017-04-01] MEDS: CALCITRIOL 0.25 MCG CAP (S0169) PO (08:21)
[2017-04-01] MEDS: HumaLOG INSULIN (NovoLOG) PER UNIT SC ×4 (08:22→21:00)
[2017-04-01] MEDS: OXcarbazepine 300 MG TAB PO ×2 (08:22→21:03)
[2017-04-01] MEDS: CALCIUM CARBONATE 500 MG CHEW U/D PO ×3 (08:22→21:03)
[2017-04-01] MEDS: ASPIRIN 81 MG ENTERIC TAB PO (08:22)
[2017-04-01] MEDS: amLODIPine 5 MG TAB PO (08:22)
[2017-04-01] MEDS: FERROUS SULFATE 325MG TAB PO ×2 (08:23→21:05)
[2017-04-01] MEDS: VITAMIN D 1,000 INTERNATIONAL UNITS TABLET PO (08:23)
[2017-04-01] MEDS: VENLAFAXINE **XR** 75MG CAPSULE PO (08:23)
[2017-04-01] MEDS: LACTOBACILLUS ACIDOPHILUS CAP (BACID) PO ×3 (08:23→17:59)
[2017-04-01 11:46] LABS: BEDSIDE GLUCOSE 199 MG/DL (80-115)
[2017-04-01] MEDS: HEPARIN 1,000 UNITS/ML 10ML VIAL (FOR RADIOLOGY& DIALYSIS ONLY) XX (14:15)
[2017-04-01] MEDS: HEPARIN 1,000 UNITS/ML 10ML VIAL (FOR RADIOLOGY& DIALYSIS ONLY) IV (14:15)
[2017-04-01] MEDS: CHECK TO SEE IF PATIENT IS RECEIVING DIALYSIS TODAY AND REFER TO THE VANCOMYCIN ORDER XX (16:00)
[2017-04-01 17:57] LABS: BEDSIDE GLUCOSE 143 MG/DL (80-115)
[2017-04-01] MEDS: VANCOMYCIN HCL 1,000 MG, VIAL MATE ADAPTER 1 EACH in D5W 250 ML IV (17:59)
[2017-04-01] MEDS ORDERED: DARBEPOETIN 300 MCG/0.6 ML *DIALYSIS* SYRINGE (J0882) IV (19:00)
[2017-04-01] MEDS: ATORVASTATIN 20 MG TAB PO (21:03)
[2017-04-01] MEDS: OMEPRAZOLE 20 MG CAP PO (21:04)
[2017-04-01] MEDS: PALIPERIDONE 3 MG ER TAB (INVEGA) PO (21:05)
[2017-04-01] MEDS: ACETAMINOPHEN 500 MG TAB PO (21:07)
[2017-04-01 21:43] LABS: BEDSIDE GLUCOSE 216 MG/DL (80-115)
[2017-04-02] MEDS: VANCOMYCIN ORAL SOL 250MG/5ML ORAL SYRINGE PO ×4 (00:50→17:15)
[2017-04-02] MEDS: **hydrALAZINE HCL** 25 MG TAB PO ×3 (06:03→21:27)
[2017-04-02] MEDS: ACETAMINOPHEN 500 MG TAB PO ×2 (06:04→21:25)
[2017-04-02] MEDS: ASPIRIN 81 MG ENTERIC TAB PO (06:04)
[2017-04-02] MEDS: LACTOBACILLUS ACIDOPHILUS CAP (BACID) PO ×3 (06:04→17:15)
[2017-04-02] MEDS: VENLAFAXINE **XR** 75MG CAPSULE PO (06:05)
[2017-04-02] MEDS: VITAMIN D 1,000 INTERNATIONAL UNITS TABLET PO (06:05)
[2017-04-02] MEDS: TAMSULOSIN 0.4 MG CAP PO (06:05)
[2017-04-02] MEDS: FERROUS SULFATE 325MG TAB PO ×2 (06:05→21:25)
[2017-04-02] MEDS: OXcarbazepine 300 MG TAB PO ×2 (06:06→21:25)
[2017-04-02] MEDS: CALCIUM CARBONATE 500 MG CHEW U/D PO ×3 (06:06→21:25)
[2017-04-02 06:16] LABS: BEDSIDE GLUCOSE 205 MG/DL (80-115)
[2017-04-02 06:48] LABS: HEMOGLOBIN 9.2 g/dl (14.0-18.0); MEAN CORPUSCULAR HEMOGLOBIN 29.7 pg (27.0-33.0); MEAN CORPUSCULAR HGB CONC 32.9 g/dl (32.0-36.5); MEAN CORPUSCULAR VOLUME 90.3 fl (80.0-96.0); PLATELET COUNT, AUTOMATED 167 10^3/uL (150-450); RED CELL DISTRIBUTION WIDTH 15.6 % (11.5-14.5)
[2017-04-02 07:06] LABS: ADD MANUAL DIFFER YES; DIFF SLIDE NUMBER 46; POS COUNT POS FLAG; POSITIVE MORPH POS FLAG
[2017-04-02 07:12] LABS: ALBUMIN 2.5 GM/DL (3.2-5.2); ANION GAP 7 MEQ/L (8-16); BLOOD UREA NITROGEN 17 MG/DL (7-18); CALCIUM LEVEL 8.4 MG/DL (8.8-10.2); CARBON DIOXIDE LEVEL 30 MEQ/L (21-32); CHLORIDE LEVEL 101 MEQ/L (98-107); CREATININE FOR GFR 2.86 MG/DL (0.70-1.30); GLOMERULAR FILTRATION RATE 24.1 (>49); GLUCOSE, FASTING 248 MG/DL (80-110); PHOSPHORUS LEVEL 2.9 MG/DL (2.5-4.9); POTASSIUM SERUM 4.5 MEQ/L (3.5-5.1); SODIUM LEVEL 138 MEQ/L (136-145); VANCOMYCIN LEVEL PEAK 24.2 UG/ML (18.0-40.0)
[2017-04-02 07:47] LABS: BANDS 5 % (< 11); EOSINOPHILS 7 % (0-5); LYMPHOCYTES 14 % (16-52); METAMYELOCYTES 1 % (0-0); MONOCYTES 4 % (0-8); MYELOCYTES 3 % (0-0); NEUTROPHILS 66 % (35-75)
[2017-04-02 07:48] LABS: ANISOCYTOSIS 1+; PLATELET ESTIMATE NORMAL (NORMAL); POIKILOCYTOSIS 1+
[2017-04-02] MEDS: HumaLOG INSULIN (NovoLOG) PER UNIT SC ×4 (07:58→21:00)
[2017-04-02] MEDS: amLODIPine 10 MG TAB PO (08:01)
[2017-04-02] MEDS: HEPARIN 1,000 UNITS/ML 10ML VIAL (FOR RADIOLOGY& DIALYSIS ONLY) XX (12:15)
[2017-04-02] MEDS: HEPARIN 1,000 UNITS/ML 10ML VIAL (FOR RADIOLOGY& DIALYSIS ONLY) IV (12:15)
[2017-04-02 12:32] LABS: ALBUMIN 2.5 GM/DL (3.2-5.2); ALBUMIN/GLOBULIN RATIO 0.56 (1.00-1.93); ALKALINE PHOSPHATASE 154 U/L (45-117); ALT/SGPT 19 U/L (12-78); ANION GAP 4 MEQ/L (8-16); AST/SGOT 12 U/L (7-37); BILIRUBIN,TOTAL 0.4 MG/DL (0.2-1.0); BLOOD UREA NITROGEN 21 MG/DL (7-18); CALCIUM LEVEL 8.5 MG/DL (8.8-10.2); CARBON DIOXIDE LEVEL 31 MEQ/L (21-32); CHLORIDE LEVEL 102 MEQ/L (98-107); CREATININE FOR GFR 2.97 MG/DL (0.70-1.30); GLOMERULAR FILTRATION RATE 23.1 (>49); GLUCOSE, FASTING 223 MG/DL (80-110); POTASSIUM SERUM 4.1 MEQ/L (3.5-5.1); SODIUM LEVEL 137 MEQ/L (136-145)
[2017-04-02 13:14] LABS: BEDSIDE GLUCOSE 193 MG/DL (80-115)
[2017-04-02 14:47] LABS: ABG BASE EXCESS 0.5 (-2.0-2.0); ABG HCO3 25.9 MEQ/L (22.0-26.0); ABG O2 SATURATION 96.1 % (95.0-99.0); ABG PARTIAL PRESSURE CO2 44.5 mmHg (35.0-45.0); ABG PARTIAL PRESSURE O2 83.1 mmHg (75.0-100.0); ABG STANDARD HCO3 24.9 MEQ/L (22.0-26.0); ABG TOTAL CO2 27.2 MEQ/L (23.0-31.0); ABG pH (ARTERIAL) 7.382 UNITS (7.350-7.450)
[2017-04-02] MEDS: CHECK TO SEE IF PATIENT IS RECEIVING DIALYSIS TODAY AND REFER TO THE VANCOMYCIN ORDER XX (16:00)
[2017-04-02] MEDS: VANCOMYCIN HCL 1,000 MG, VIAL MATE ADAPTER 1 EACH in D5W 250 ML IV (16:10)
[2017-04-02 17:05] LABS: BEDSIDE GLUCOSE 220 MG/DL (80-115)
[2017-04-02] MEDS: PALIPERIDONE 3 MG ER TAB (INVEGA) PO (21:25)
[2017-04-02] MEDS: OMEPRAZOLE 20 MG CAP PO (21:25)
[2017-04-02] MEDS: ATORVASTATIN 20 MG TAB PO (21:25)
[2017-04-02 21:49] LABS: BEDSIDE GLUCOSE 212 MG/DL (80-115)
[2017-04-03] MEDS: VANCOMYCIN ORAL SOL 250MG/5ML ORAL SYRINGE PO ×5 (01:17→23:19)
[2017-04-03] MEDS: **hydrALAZINE HCL** 25 MG TAB PO ×3 (06:04→22:11)
[2017-04-03] MEDS: ACETAMINOPHEN 500 MG TAB PO ×2 (06:05→17:16)
[2017-04-03 06:22] LABS: BEDSIDE GLUCOSE 227 MG/DL (80-115)
[2017-04-03 07:11] LABS: HEMATOCRIT 28.6 % (42.0-52.0); HEMOGLOBIN 9.5 g/dl (14.0-18.0); MEAN CORPUSCULAR HEMOGLOBIN 30.2 pg (27.0-33.0); MEAN CORPUSCULAR HGB CONC 33.2 g/dl (32.0-36.5); MEAN CORPUSCULAR VOLUME 90.8 fl (80.0-96.0); PLATELET COUNT, AUTOMATED 173 10^3/uL (150-450); RED BLOOD COUNT 3.15 10^6/uL (4.30-6.10); RED CELL DISTRIBUTION WIDTH 15.3 % (11.5-14.5); WHITE BLOOD COUNT 11.2 10^3/uL (4.0-10.0)
[2017-04-03 07:18] LABS: ADD MANUAL DIFFER YES; DIFF SLIDE NUMBER 29; POS COUNT POS FLAG; POSITIVE MORPH POS FLAG
[2017-04-03 07:25] LABS: ALBUMIN 2.5 GM/DL (3.2-5.2); ANION GAP 5 MEQ/L (8-16); BLOOD UREA NITROGEN 28 MG/DL (7-18); CALCIUM LEVEL 8.5 MG/DL (8.8-10.2); CARBON DIOXIDE LEVEL 30 MEQ/L (21-32); CHLORIDE LEVEL 101 MEQ/L (98-107); CREATININE FOR GFR 3.74 MG/DL (0.70-1.30); GLOMERULAR FILTRATION RATE 17.7 (>49); GLUCOSE, FASTING 237 MG/DL (80-110); PHOSPHORUS LEVEL 3.1 MG/DL (2.5-4.9); POTASSIUM SERUM 4.9 MEQ/L (3.5-5.1); SODIUM LEVEL 136 MEQ/L (136-145)
[2017-04-03 07:48] LABS: ATYPICAL LYMPH 2 % (0-5); BANDS 2 % (< 11); EOSINOPHILS 9 % (0-5); LYMPHOCYTES 7 % (16-52); METAMYELOCYTES 1 % (0-0); MONOCYTES 4 % (0-8); MYELOCYTES 1 % (0-0); NEUTROPHILS 74 % (35-75); PLATELET ESTIMATE NORMAL (NORMAL)
[2017-04-03] MEDS: OXcarbazepine 300 MG TAB PO ×2 (09:04→22:10)
[2017-04-03] MEDS: TAMSULOSIN 0.4 MG CAP PO (09:04)
[2017-04-03] MEDS: VITAMIN D 1,000 INTERNATIONAL UNITS TABLET PO (09:04)
[2017-04-03] MEDS: CALCIUM CARBONATE 500 MG CHEW U/D PO ×3 (09:05→22:12)
[2017-04-03] MEDS: CALCITRIOL 0.25 MCG CAP (S0169) PO (09:05)
[2017-04-03] MEDS: ASPIRIN 81 MG ENTERIC TAB PO (09:05)
[2017-04-03] MEDS: FERROUS SULFATE 325MG TAB PO ×2 (09:05→22:10)
[2017-04-03] MEDS: LACTOBACILLUS ACIDOPHILUS CAP (BACID) PO ×3 (09:05→17:16)
[2017-04-03] MEDS: amLODIPine 10 MG TAB PO (09:05)
[2017-04-03] MEDS: VENLAFAXINE **XR** 75MG CAPSULE PO (09:05)
[2017-04-03] MEDS: HumaLOG INSULIN (NovoLOG) PER UNIT SC ×4 (09:06→21:00)
[2017-04-03 14:18] LABS: BEDSIDE GLUCOSE 221 MG/DL (80-115)
[2017-04-03] MEDS: CHECK TO SEE IF PATIENT IS RECEIVING DIALYSIS TODAY AND REFER TO THE VANCOMYCIN ORDER XX (15:18)
[2017-04-03 17:06] LABS: BEDSIDE GLUCOSE 232 MG/DL (80-115)
[2017-04-03 20:32] LABS: BEDSIDE GLUCOSE 199 MG/DL (80-115)
[2017-04-03] MEDS: PALIPERIDONE 3 MG ER TAB (INVEGA) PO (22:10)
[2017-04-03] MEDS: OMEPRAZOLE 20 MG CAP PO (22:11)
[2017-04-03] MEDS: ATORVASTATIN 20 MG TAB PO (22:11)
[2017-04-03] MEDS: IBUPROFEN 400 MG TAB PO (22:11)
[2017-04-04] MEDS: VANCOMYCIN ORAL SOL 250MG/5ML ORAL SYRINGE PO ×4 (05:52→23:20)
[2017-04-04] MEDS: **hydrALAZINE HCL** 25 MG TAB PO ×3 (06:05→20:28)
[2017-04-04] MEDS: VENLAFAXINE **XR** 75MG CAPSULE PO (06:06)
[2017-04-04] MEDS: ACETAMINOPHEN 500 MG TAB PO (06:06)
[2017-04-04] MEDS: TAMSULOSIN 0.4 MG CAP PO (06:06)
[2017-04-04] MEDS: LACTOBACILLUS ACIDOPHILUS CAP (BACID) PO ×3 (06:06→17:25)
[2017-04-04] MEDS: VITAMIN D 1,000 INTERNATIONAL UNITS TABLET PO (06:06)
[2017-04-04] MEDS: FERROUS SULFATE 325MG TAB PO ×2 (06:06→20:28)
[2017-04-04 06:07] LABS: HEMATOCRIT 28.7 % (42.0-52.0); HEMOGLOBIN 9.2 g/dl (14.0-18.0); MEAN CORPUSCULAR HEMOGLOBIN 29.3 pg (27.0-33.0); MEAN CORPUSCULAR HGB CONC 32.1 g/dl (32.0-36.5); MEAN CORPUSCULAR VOLUME 91.4 fl (80.0-96.0); PLATELET COUNT, AUTOMATED 183 10^3/uL (150-450); RED BLOOD COUNT 3.14 10^6/uL (4.30-6.10); RED CELL DISTRIBUTION WIDTH 15.5 % (11.5-14.5); WHITE BLOOD COUNT 10.9 10^3/uL (4.0-10.0)
[2017-04-04] MEDS: OXcarbazepine 300 MG TAB PO ×2 (06:07→20:28)
[2017-04-04] MEDS: ASPIRIN 81 MG ENTERIC TAB PO (06:07)
[2017-04-04] MEDS: CALCIUM CARBONATE 500 MG CHEW U/D PO ×3 (06:07→20:29)
[2017-04-04 06:12] LABS: ADD MANUAL DIFFER YES; DIFF SLIDE NUMBER 17; POS COUNT POS FLAG; POSITIVE MORPH POS FLAG
[2017-04-04 06:32] LABS: ALBUMIN 2.6 GM/DL (3.2-5.2); ANION GAP 9 MEQ/L (8-16); BLOOD UREA NITROGEN 38 MG/DL (7-18); CALCIUM LEVEL 8.6 MG/DL (8.8-10.2); CARBON DIOXIDE LEVEL 28 MEQ/L (21-32); CHLORIDE LEVEL 100 MEQ/L (98-107); CREATININE FOR GFR 4.21 MG/DL (0.70-1.30); GLOMERULAR FILTRATION RATE 15.4 (>49); GLUCOSE, FASTING 223 MG/DL (80-110); POTASSIUM SERUM 5.1 MEQ/L (3.5-5.1); SODIUM LEVEL 137 MEQ/L (136-145)
[2017-04-04 06:51] LABS: ANISOCYTOSIS 1+; BANDS 2 % (< 11); BASOPHILS 1 % (0-4); EOSINOPHILS 8 % (0-5); LYMPHOCYTES 3 % (16-52); METAMYELOCYTES 1 % (0-0); MONOCYTES 5 % (0-8); MYELOCYTES 1 % (0-0); NEUTROPHILS 79 % (35-75); PLATELET ESTIMATE NORMAL (NORMAL)
[2017-04-04 06:52] LABS: PHOSPHORUS LEVEL 4.7 MG/DL (2.5-4.9)
[2017-04-04 06:53] LABS: POLYCHROMASIA 1+
[2017-04-04] MEDS: HumaLOG INSULIN (NovoLOG) PER UNIT SC ×4 (08:03→21:00)
[2017-04-04] MEDS: amLODIPine 10 MG TAB PO (08:04)
[2017-04-04] MEDS: HEPARIN 1,000 UNITS/ML 10ML VIAL (FOR RADIOLOGY& DIALYSIS ONLY) IV (12:15)
[2017-04-04] MEDS: HEPARIN 1,000 UNITS/ML 10ML VIAL (FOR RADIOLOGY& DIALYSIS ONLY) XX (12:15)
[2017-04-04 13:30] LABS: BEDSIDE GLUCOSE 142 MG/DL (80-115)
[2017-04-04] MEDS: VANCOMYCIN HCL 1,000 MG, VIAL MATE ADAPTER 1 EACH in D5W 250 ML IV (15:58)
[2017-04-04] MEDS: CHECK TO SEE IF PATIENT IS RECEIVING DIALYSIS TODAY AND REFER TO THE VANCOMYCIN ORDER XX (15:59)
[2017-04-04 16:53] LABS: BEDSIDE GLUCOSE 224 MG/DL (80-115)
[2017-04-04] MEDS: ATORVASTATIN 20 MG TAB PO (20:27)
[2017-04-04] MEDS: PALIPERIDONE 3 MG ER TAB (INVEGA) PO (20:27)
[2017-04-04] MEDS: IBUPROFEN 400 MG TAB PO (20:28)
[2017-04-04] MEDS: OMEPRAZOLE 20 MG CAP PO (20:28)
[2017-04-05] MEDS: **hydrALAZINE HCL** 25 MG TAB PO ×3 (05:39→21:08)
[2017-04-05] MEDS: VANCOMYCIN ORAL SOL 250MG/5ML ORAL SYRINGE PO ×4 (05:39→23:55)
[2017-04-05 06:49] LABS: BASO # 0.1 10^3/uL (0.0-0.2); BASO % 0.6 % (0.0-1.0); EOS # 0.7 10^3/uL (0.0-0.50); EOS % 7.5 % (0.0-3.0); HEMATOCRIT 28.6 % (42.0-52.0); HEMOGLOBIN 9.3 g/dl (14.0-18.0); IMMATURE GRANULOCYTE # 0.3 10^3/uL (0-0); IMMATURE GRANULOCYTE % 3.4 % (0-0); LYMPH # 0.9 10^3/uL (1.5-4.5); LYMPH % 9.8 % (24.0-44.0); MEAN CORPUSCULAR HEMOGLOBIN 29.8 pg (27.0-33.0); MEAN CORPUSCULAR HGB CONC 32.5 g/dl (32.0-36.5); MEAN CORPUSCULAR VOLUME 91.7 fl (80.0-96.0); MONO # 0.7 10^3/uL (0.0-0.8); MONO % 7.3 % (0.0-5.0); NEUTROPHILS # 6.7 10^3/uL (1.8-7.7); NEUTROPHILS % 71.4 % (36.0-66.0); PLATELET COUNT, AUTOMATED 176 10^3/uL (150-450); RED BLOOD COUNT 3.12 10^6/uL (4.30-6.10); RED CELL DISTRIBUTION WIDTH 15.6 % (11.5-14.5); WHITE BLOOD COUNT 9.4 10^3/uL (4.0-10.0)
[2017-04-05 07:14] LABS: ALBUMIN 2.5 GM/DL (3.2-5.2); ANION GAP 6 MEQ/L (8-16); BLOOD UREA NITROGEN 24 MG/DL (7-18); CARBON DIOXIDE LEVEL 31 MEQ/L (21-32); CHLORIDE LEVEL 98 MEQ/L (98-107); CREATININE FOR GFR 3.37 MG/DL (0.70-1.30); GLUCOSE, FASTING 227 MG/DL (80-110); PHOSPHORUS LEVEL 3.8 MG/DL (2.5-4.9); POTASSIUM SERUM 4.8 MEQ/L (3.5-5.1); SODIUM LEVEL 135 MEQ/L (136-145)
[2017-04-05] MEDS: FERROUS SULFATE 325MG TAB PO ×2 (09:36→21:08)
[2017-04-05] MEDS: VITAMIN D 1,000 INTERNATIONAL UNITS TABLET PO (09:36)
[2017-04-05] MEDS: OXcarbazepine 300 MG TAB PO ×2 (09:36→21:08)
[2017-04-05] MEDS: HumaLOG INSULIN (NovoLOG) PER UNIT SC ×4 (09:36→21:00)
[2017-04-05] MEDS: TAMSULOSIN 0.4 MG CAP PO (09:37)
[2017-04-05] MEDS: ASPIRIN 81 MG ENTERIC TAB PO (09:37)
[2017-04-05] MEDS: CALCIUM CARBONATE 500 MG CHEW U/D PO ×3 (09:37→21:07)
[2017-04-05] MEDS: VENLAFAXINE **XR** 75MG CAPSULE PO (09:37)
[2017-04-05] MEDS: amLODIPine 10 MG TAB PO ×2 (09:37→09:39)
[2017-04-05] MEDS: LACTOBACILLUS ACIDOPHILUS CAP (BACID) PO ×3 (09:37→17:30)
[2017-04-05 11:50] LABS: BEDSIDE GLUCOSE 230 MG/DL (80-115)
[2017-04-05] MEDS: CHECK TO SEE IF PATIENT IS RECEIVING DIALYSIS TODAY AND REFER TO THE VANCOMYCIN ORDER XX (16:15)
[2017-04-05 17:16] LABS: BEDSIDE GLUCOSE 197 MG/DL (80-115)
[2017-04-05 20:38] LABS: BEDSIDE GLUCOSE 155 MG/DL (80-115)
[2017-04-05] MEDS: PALIPERIDONE 3 MG ER TAB (INVEGA) PO (21:07)
[2017-04-05] MEDS: ATORVASTATIN 20 MG TAB PO (21:08)
[2017-04-05] MEDS: OMEPRAZOLE 20 MG CAP PO (21:08)
[2017-04-06] MEDS: VANCOMYCIN ORAL SOL 250MG/5ML ORAL SYRINGE PO ×4 (05:16→23:50)
[2017-04-06] MEDS: **hydrALAZINE HCL** 25 MG TAB PO ×3 (05:16→20:24)
[2017-04-06 07:27] LABS: ALBUMIN 2.7 GM/DL (3.2-5.2); ANION GAP 8 MEQ/L (8-16); BLOOD UREA NITROGEN 34 MG/DL (7-18); CALCIUM LEVEL 8.7 MG/DL (8.8-10.2); CARBON DIOXIDE LEVEL 28 MEQ/L (21-32); CHLORIDE LEVEL 97 MEQ/L (98-107); CREATININE FOR GFR 4.03 MG/DL (0.70-1.30); GLOMERULAR FILTRATION RATE 16.2 (>49); GLUCOSE, FASTING 205 MG/DL (80-110); PHOSPHORUS LEVEL 4.3 MG/DL (2.5-4.9); POTASSIUM SERUM 4.6 MEQ/L (3.5-5.1); SODIUM LEVEL 133 MEQ/L (136-145)
[2017-04-06] MEDS: CALCIUM CARBONATE 500 MG CHEW U/D PO ×3 (08:56→20:22)
[2017-04-06] MEDS: VITAMIN D 1,000 INTERNATIONAL UNITS TABLET PO (08:57)
[2017-04-06] MEDS: CALCITRIOL 0.25 MCG CAP (S0169) PO (08:57)
[2017-04-06] MEDS: OXcarbazepine 300 MG TAB PO ×2 (08:57→20:22)
[2017-04-06] MEDS: LACTOBACILLUS ACIDOPHILUS CAP (BACID) PO ×3 (08:57→17:35)
[2017-04-06] MEDS: FERROUS SULFATE 325MG TAB PO ×2 (08:57→20:22)
[2017-04-06] MEDS: amLODIPine 10 MG TAB PO (08:58)
[2017-04-06] MEDS: ASPIRIN 81 MG ENTERIC TAB PO (08:58)
[2017-04-06] MEDS: VENLAFAXINE **XR** 75MG CAPSULE PO (08:58)
[2017-04-06] MEDS: TAMSULOSIN 0.4 MG CAP PO (08:58)
[2017-04-06] MEDS: HumaLOG INSULIN (NovoLOG) PER UNIT SC ×4 (08:59→20:17)
[2017-04-06 12:22] LABS: BEDSIDE GLUCOSE 235 MG/DL (80-115)
[2017-04-06] MEDS: CHECK TO SEE IF PATIENT IS RECEIVING DIALYSIS TODAY AND REFER TO THE VANCOMYCIN ORDER XX (16:00)
[2017-04-06 17:19] LABS: BEDSIDE GLUCOSE 158 MG/DL (80-115)
[2017-04-06 20:12] LABS: BEDSIDE GLUCOSE 161 MG/DL (80-115)
[2017-04-06] MEDS: ATORVASTATIN 20 MG TAB PO (20:22)
[2017-04-06] MEDS: PALIPERIDONE 3 MG ER TAB (INVEGA) PO (20:22)
[2017-04-06] MEDS: OMEPRAZOLE 20 MG CAP PO (20:23)
[2017-04-07] MEDS: VANCOMYCIN ORAL SOL 250MG/5ML ORAL SYRINGE PO ×3 (05:37→17:26)
[2017-04-07] MEDS: **hydrALAZINE HCL** 25 MG TAB PO ×3 (05:37→21:25)
[2017-04-07 07:58] LABS: ALBUMIN 2.8 GM/DL (3.2-5.2); ANION GAP 7 MEQ/L (8-16); BLOOD UREA NITROGEN 37 MG/DL (7-18); CALCIUM LEVEL 8.5 MG/DL (8.8-10.2); CARBON DIOXIDE LEVEL 29 MEQ/L (21-32); CHLORIDE LEVEL 98 MEQ/L (98-107); CREATININE FOR GFR 4.38 MG/DL (0.70-1.30); GLOMERULAR FILTRATION RATE 14.8 (>49); GLUCOSE, FASTING 248 MG/DL (80-110); PHOSPHORUS LEVEL 5.5 MG/DL (2.5-4.9); SODIUM LEVEL 134 MEQ/L (136-145); VANCOMYCIN RANDOM 21.9 UG/ML
[2017-04-07 08:00] LABS: BEDSIDE GLUCOSE 288 MG/DL (80-115)
[2017-04-07 08:01] LABS: POTASSIUM SERUM 5.4 MEQ/L (3.5-5.1)
[2017-04-07] MEDS: VITAMIN D 1,000 INTERNATIONAL UNITS TABLET PO (08:11)
[2017-04-07] MEDS: CALCIUM CARBONATE 500 MG CHEW U/D PO ×3 (08:11→21:24)
[2017-04-07] MEDS: VENLAFAXINE **XR** 75MG CAPSULE PO (08:11)
[2017-04-07] MEDS: LACTOBACILLUS ACIDOPHILUS CAP (BACID) PO ×3 (08:11→17:25)
[2017-04-07] MEDS: ASPIRIN 81 MG ENTERIC TAB PO (08:12)
[2017-04-07] MEDS: FERROUS SULFATE 325MG TAB PO ×2 (08:12→21:24)
[2017-04-07] MEDS: OXcarbazepine 300 MG TAB PO ×2 (08:12→21:24)
[2017-04-07] MEDS: TAMSULOSIN 0.4 MG CAP PO (08:12)
[2017-04-07] MEDS: amLODIPine 10 MG TAB PO (08:12)
[2017-04-07] MEDS: HumaLOG INSULIN (NovoLOG) PER UNIT SC ×4 (08:12→21:30)
[2017-04-07] MEDS: HEPARIN 1,000 UNITS/ML 10ML VIAL (FOR RADIOLOGY& DIALYSIS ONLY) IV (11:30)
[2017-04-07] MEDS: HEPARIN 1,000 UNITS/ML 10ML VIAL (FOR RADIOLOGY& DIALYSIS ONLY) XX (11:30)
[2017-04-07 11:48] LABS: BEDSIDE GLUCOSE 231 MG/DL (80-115)
[2017-04-07] MEDS: ACETAMINOPHEN 500 MG TAB PO (14:03)
[2017-04-07] MEDS: VANCOMYCIN HCL 1,000 MG, VIAL MATE ADAPTER 1 EACH in D5W 250 ML IV (14:03)
[2017-04-07] MEDS: CHECK TO SEE IF PATIENT IS RECEIVING DIALYSIS TODAY AND REFER TO THE VANCOMYCIN ORDER XX (14:04)
[2017-04-07 14:12] LABS: BEDSIDE GLUCOSE 155 MG/DL (80-115)
[2017-04-07] MEDS: ATORVASTATIN 20 MG TAB PO (21:23)
[2017-04-07] MEDS: FAMOTIDINE 20 MG TAB PO (21:24)
[2017-04-07] MEDS: PALIPERIDONE 3 MG ER TAB (INVEGA) PO (21:34)
[2017-04-08] MEDS: VANCOMYCIN ORAL SOL 250MG/5ML ORAL SYRINGE PO ×3 (00:05→12:45)
[2017-04-08 01:36] LABS: BEDSIDE GLUCOSE 173 MG/DL (80-115)
[2017-04-08 03:12] LABS: BEDSIDE GLUCOSE 252 MG/DL (80-115)
[2017-04-08] MEDS: **hydrALAZINE HCL** 25 MG TAB PO (06:09)
[2017-04-08 07:00] LABS: C REACTIVE PROTEIN QUANTITATIV 5.36 MG/DL (0.00-0.30)
[2017-04-08 07:55] LABS: HEMATOCRIT 29.5 % (42.0-52.0); HEMOGLOBIN 9.5 g/dl (14.0-18.0); MEAN CORPUSCULAR HEMOGLOBIN 30.7 pg (27.0-33.0); MEAN CORPUSCULAR HGB CONC 32.2 g/dl (32.0-36.5); MEAN CORPUSCULAR VOLUME 95.5 fl (80.0-96.0); PLATELET COUNT, AUTOMATED 227 10^3/uL (150-450); RED BLOOD COUNT 3.09 10^6/uL (4.30-6.10); RED CELL DISTRIBUTION WIDTH 16.4 % (11.5-14.5); WHITE BLOOD COUNT 8.3 10^3/uL (4.0-10.0)
[2017-04-08 08:06] LABS: ANION GAP 6 MEQ/L (8-16); BLOOD UREA NITROGEN 26 MG/DL (7-18); CALCIUM LEVEL 8.7 MG/DL (8.8-10.2); CARBON DIOXIDE LEVEL 27 MEQ/L (21-32); CHLORIDE LEVEL 101 MEQ/L (98-107); CREATININE FOR GFR 3.79 MG/DL (0.70-1.30); GLOMERULAR FILTRATION RATE 17.4 (>49); GLUCOSE, FASTING 247 MG/DL (80-110); POTASSIUM SERUM 5.1 MEQ/L (3.5-5.1); SODIUM LEVEL 134 MEQ/L (136-145)
[2017-04-08] MEDS: HumaLOG INSULIN (NovoLOG) PER UNIT SC ×3 (08:07→12:45)
[2017-04-08] MEDS: CALCIUM CARBONATE 500 MG CHEW U/D PO (08:55)
[2017-04-08] MEDS: TAMSULOSIN 0.4 MG CAP PO (08:57)
[2017-04-08] MEDS: FAMOTIDINE 20 MG TAB PO (08:57)
[2017-04-08] MEDS: OXcarbazepine 300 MG TAB PO (08:57)
[2017-04-08] MEDS: FERROUS SULFATE 325MG TAB PO (08:57)
[2017-04-08] MEDS: amLODIPine 10 MG TAB PO (08:57)
[2017-04-08] MEDS: VENLAFAXINE **XR** 75MG CAPSULE PO (08:58)
[2017-04-08] MEDS: VITAMIN D 1,000 INTERNATIONAL UNITS TABLET PO (08:58)
[2017-04-08] MEDS: ASPIRIN 81 MG ENTERIC TAB PO (08:58)
[2017-04-08] MEDS: CALCITRIOL 0.25 MCG CAP (S0169) PO (08:58)
[2017-04-08] MEDS: LACTOBACILLUS ACIDOPHILUS CAP (BACID) PO (09:52)
[2017-04-08 21:11] LABS: BEDSIDE GLUCOSE 203 MG/DL (80-115)
== END 2017-04-08 12:55 | DRG 314 ==
LOC: M MS5PR 04-01 15:51 → M ED 09:20 → M ED INP 13:39 → M PCU 15:20
PROC: 30233N1 Transfusion of Nonautologous Red Blood Cells into Peripheral Vein, Percutaneous Approach (ICD-10-PCS; principal; 2017-03-28 11:13)
PROC: 02HV33Z Insertion of Infusion Device into Superior Vena Cava, Percutaneous Approach (ICD-10-PCS; 2017-03-28 11:13)
PROC: 0JH63XZ Insertion of Tunneled Vascular Access Device into Chest Subcutaneous Tissue and Fascia, Percutaneous Approach (ICD-10-PCS; 2017-03-28 11:13)
DX: T82.7XXA Infection and inflammatory reaction due to other cardiac and vascular devices, implants and grafts, initial encounter (principal); N18.6 End stage renal disease; A41.2 Sepsis due to unspecified staphylococcus; I50.42 Chronic combined systolic (congestive) and diastolic (congestive) heart failure; A04.72 Enterocolitis due to Clostridium difficile, not specified as recurrent; E87.2 Acidosis; N39.0 Urinary tract infection, site not specified; J96.12 Chronic respiratory failure with hypercapnia; I13.11 Hypertensive heart and chronic kidney disease without heart failure, with stage 5 chronic kidney disease, or end stage renal disease; E66.2 Morbid (severe) obesity with alveolar hypoventilation; J44.9 Chronic obstructive pulmonary disease, unspecified; F32.9 Major depressive disorder, single episode, unspecified; F20.9 Schizophrenia, unspecified; E11.9 Type 2 diabetes mellitus without complications; Z79.899 Other long term (current) drug therapy; Z79.82 Long term (current) use of aspirin; N40.0 Benign prostatic hyperplasia without lower urinary tract symptoms; K21.9 Gastro-esophageal reflux disease without esophagitis; Z79.4 Long term (current) use of insulin; Z87.891 Personal history of nicotine dependence; D63.1 Anemia in chronic kidney disease; Y84.1 Kidney dialysis as the cause of abnormal reaction of the patient, or of later complication, without mention of misadventure at the time of the procedure

== ENCOUNTER → 2017-04-10 | Outpatient (CLI) | payer MEDICARE, MEDICAID ==
[~2017-04-10] MED LIST changes: -/GLYB5TA; -/TAMS4CA; -/TIOT18INH; -ACCU5TAB7; -ACCUPRIL40 PO; -ACEP650S PR; -ACET1TAB17 PO; -ACET50TAOT PO; -ALBU83IN INH; -ALCOHOL TOP; -AMITRIP25 PO; -ASP81 PO; -ASPI81CH PO; -ASPI81TA3; -ASPI81TAEC PO; -ASTELIN; -ASTELIN NASAL; -ATENOLOL50 PO; -ATOR40TA75 PO; -ATRO0.06; -AVOD0.5C; -CALC1CAP31 PO; -CALC500C16 PO; -CARV12.5 PO; -CARV3.12 PO; -CELLOPD OU; -CLAR5CHW; -CLARITD12H PO; -CLARITIN10 PO; -COLA100C5 PO; -DIAB5TAB; -DITROPAXL5 PO; -DOCU100T5 PO; -DOXYCYC100 PO; -DULC10SU2 PR; -DUONSOL; -ENEMENE16 PR; -EXPECTORANT; -FERR1TAB8 PO; -FLOM5CAP PO; -FLONASESPR NASAL; -GLUC1000; -GLUC1INJ11 INJ; -GLUCOSE; -GLUCOVAN PO; +HEPARIN 1,000 UNITS/ML 10ML VIAL (FOR RADIOLOGY& DIALYSIS ONLY) As Ordered; -HUMA75VL; -HYDR25TA PO; -IBUP400T; -IBUP600T; -IMODIUM2 PO; -INSUHUMDS SC; -INSULANT; -INVE3TAB2; -INVE3TAB2 PO; -INVE6TAB3; -LASI80TA; -LASIX PO; -LEVA31IN; +LIDOCAINE 2% MDV 20 ML VIAL As Ordered; -LISI30TA4 PO; -LOVAZA PO; -METO5TA PO; -MILKSUS PO; -MOTRIN800 PO; -MUCINEX PO; -NAPROS500 PO; -NAPROSY375 PO; -NORV5TAB PO; -NOVOLOG100 MG/ML; -OMACOR; -OMACOR PO; -OMEP20CA3 PO; -OXCA300T PO; -PREPCRE PR; -PREVACID30 PO; -PRIL20CA; -PRIL40CA; -PROC20004 SQ; -SENN-23 PO; -SENN1TAB10 PO; -SERO200T; -SING10TA31; -SYRINS1CC SUBQ; -TENO25TA; -TORS20TA2 PO; -TOUJ1.2I SC; -TRIC145T19; -TRICOR145 PO; -ULTRTA PO; -VENL150C43 PO; -VENL37.5; -VENL75TA2; -VENL75TA2 PO; -VITA100066 PO; -XANA0.25; -ZITHROZPAK PO; -ZOCO40TA; -ZOCOR40 PO; -ZYRT10CA PO; -[UNRECOGNIZED DRUG - CODE] PO; -[UNRECOGNIZED DRUG - OTHER] -; -[UNRECOGNIZED DRUG - OTHER] INHALATION; -[UNRECOGNIZED DRUG - SUPPLY]
== END | disposition home or self-care (01) ==
LOC: M IRPRO 13:44
DX: N18.6 End stage renal disease (principal)
CPT/HCPCS: 36558

== ENCOUNTER → 2017-04-13 | Outpatient (REF) | payer MEDICARE, MEDICAID ==
[2017-04-13 18:36] LABS: ANION GAP 7 MEQ/L (8-16); BLOOD UREA NITROGEN 23 MG/DL (7-18); CALCIUM LEVEL 8.2 MG/DL (8.8-10.2); CARBON DIOXIDE LEVEL 29 MEQ/L (21-32); CHLORIDE LEVEL 100 MEQ/L (98-107); CREATININE FOR GFR 3.96 MG/DL (0.70-1.30); GLOMERULAR FILTRATION RATE 16.6 (>49); GLUCOSE, FASTING 158 MG/DL (80-110); POTASSIUM SERUM 4.7 MEQ/L (3.5-5.1); SODIUM LEVEL 136 MEQ/L (136-145)
[2017-04-13 19:06] LABS: HEMATOCRIT 28.7 % (42.0-52.0); HEMOGLOBIN 9.2 g/dl (14.0-18.0); MEAN CORPUSCULAR HEMOGLOBIN 30.6 pg (27.0-33.0); MEAN CORPUSCULAR HGB CONC 32.1 g/dl (32.0-36.5); MEAN CORPUSCULAR VOLUME 95.3 fl (80.0-96.0); PLATELET COUNT, AUTOMATED 180 10^3/uL (150-450); RED BLOOD COUNT 3.01 10^6/uL (4.30-6.10); RED CELL DISTRIBUTION WIDTH 17.6 % (11.5-14.5); WHITE BLOOD COUNT 6.5 10^3/uL (4.0-10.0)
== END ==
DX: R50.9 Fever, unspecified (principal)
CPT/HCPCS: 80048

== ENCOUNTER → 2017-04-14 | Outpatient (REF) | payer MEDICARE, MEDICAID ==
[2017-04-14 11:33] LABS: ANION GAP 9 MEQ/L (8-16); BLOOD UREA NITROGEN 28 MG/DL (7-18); CALCIUM LEVEL 8.9 MG/DL (8.8-10.2); CARBON DIOXIDE LEVEL 28 MEQ/L (21-32); CHLORIDE LEVEL 101 MEQ/L (98-107); CREATININE FOR GFR 4.28 MG/DL (0.70-1.30); GLOMERULAR FILTRATION RATE 15.2 (>49); GLUCOSE, FASTING 185 MG/DL (80-110); POTASSIUM SERUM 4.8 MEQ/L (3.5-5.1); SODIUM LEVEL 138 MEQ/L (136-145)
[2017-04-14 13:37] LABS: ESTIMATED AVERAGE GLUCOSE 137 MG/DL (60-110); HEMOGLOBIN A1c 6.4 %
[2017-04-14 20:47] LABS: APPEARANCE, URINE HAZY (CLEAR); BACTERIA, URINE AUTO NEGATIVE (NEGATIVE); BILIRUBIN, URINE AUTO NEGATIVE (NEGATIVE); BLOOD, URINE BLOOD NEGATIVE (NEGATIVE); COLOR, URINE YELLOW (YELLOW); GLUCOSE, URINE (UA) AUTO 1+ mg/dL (NEGATIVE); KETONE, URINE AUTO NEGATIVE (NEGATIVE); LEUKOCYTE ESTERASE, URINE AUTO NEGATIVE (NEGATIVE); MUCUS, URINE SMALL (NEGATIVE); NITRITE, URINE AUTO NEGATIVE (NEGATIVE); PROTEIN, URINE AUTO 3+ mg/dL (NEGATIVE); RBC, URINE AUTO 4 /HPF (0-3); SPECIFIC GRAVITY URINE AUTO 1.017 (1.002-1.035); SQUAMOUS EPITHELIAL CELL UR AU 1 /HPF (0-6); UROBILINOGEN, URINE AUTO 0.2 mg/dL (0.0-2.0); WBC, URINE AUTO 4 /HPF (0-3)
== END ==
DX: D64.9 Anemia, unspecified (principal); Z79.899 Other long term (current) drug therapy
CPT/HCPCS: 83036

== ENCOUNTER → 2017-04-15 | Outpatient (REF) | payer MEDICARE, MEDICAID | DX: R05 Cough (principal); R06.2 Wheezing; R06.02 Shortness of breath | CPT/HCPCS: 87633 ==

== ENCOUNTER → 2017-04-21 | Outpatient (REF) | payer MEDICARE, MEDICAID ==
[2017-04-21 11:30] LABS: HEMATOCRIT 27.9 % (42.0-52.0); HEMOGLOBIN 8.8 g/dl (14.0-18.0); MEAN CORPUSCULAR HEMOGLOBIN 30.2 pg (27.0-33.0); MEAN CORPUSCULAR HGB CONC 31.5 g/dl (32.0-36.5); MEAN CORPUSCULAR VOLUME 95.9 fl (80.0-96.0); PLATELET COUNT, AUTOMATED 221 10^3/uL (150-450); RED BLOOD COUNT 2.91 10^6/uL (4.30-6.10); RED CELL DISTRIBUTION WIDTH 16.9 % (11.5-14.5); WHITE BLOOD COUNT 9.2 10^3/uL (4.0-10.0)
[2017-04-21 11:50] LABS: ANION GAP 7 MEQ/L (8-16); BLOOD UREA NITROGEN 31 MG/DL (7-18); CALCIUM LEVEL 8.9 MG/DL (8.8-10.2); CARBON DIOXIDE LEVEL 31 MEQ/L (21-32); CHLORIDE LEVEL 101 MEQ/L (98-107); CREATININE FOR GFR 4.37 MG/DL (0.70-1.30); GLOMERULAR FILTRATION RATE 14.8 (>49); GLUCOSE, FASTING 201 MG/DL (80-110); POTASSIUM SERUM 4.1 MEQ/L (3.5-5.1); SODIUM LEVEL 139 MEQ/L (136-145)
== END ==
DX: D64.9 Anemia, unspecified (principal)
CPT/HCPCS: 80048

== ENCOUNTER → 2017-05-01 | Outpatient (REF) | payer MEDICARE, MEDICAID | DX: Z00.00 Encounter for general adult medical examination without abnormal findings (principal) ==

== ENCOUNTER → 2017-05-11 | Outpatient (REF) | payer MEDICARE, SELFPAY, MEDICAID | DX: A49.02 Methicillin resistant Staphylococcus aureus infection, unspecified site (principal) | CPT/HCPCS: 87081 ==

== ENCOUNTER → 2017-05-18 | Outpatient (REF) | payer MEDICARE, MEDICAID | DX: Z00.00 Encounter for general adult medical examination without abnormal findings (principal) | CPT/HCPCS: 87081 ==

== ENCOUNTER → 2017-05-19 | Outpatient (REF) | payer MEDICARE, MEDICAID | DX: D64.9 Anemia, unspecified (principal) ==

== ENCOUNTER → 2017-05-25 | Outpatient (REF) | payer MEDICARE, SELFPAY, MEDICAID | DX: Z11.2 Encounter for screening for other bacterial diseases (principal) | CPT/HCPCS: 87081 ==

== ENCOUNTER → 2017-06-01 | Outpatient (REF) | payer MEDICARE, MEDICAID | DX: Z22.322 Carrier or suspected carrier of Methicillin resistant Staphylococcus aureus (principal) | CPT/HCPCS: 87081 ==

== ENCOUNTER → 2017-06-17 | Outpatient (CLI) | payer MEDICARE, MEDICAID | LOC: M RAD 12:16 | DX: N18.6 End stage renal disease (principal) ==

== ENCOUNTER → 2017-06-24 | Outpatient (REF) | payer MEDICARE, MEDICAID ==
[2017-06-24 15:58] LABS: HEMATOCRIT 33.3 % (42.0-52.0); HEMOGLOBIN 10.7 g/dl (14.0-18.0); MEAN CORPUSCULAR HEMOGLOBIN 30.1 pg (27.0-33.0); MEAN CORPUSCULAR HGB CONC 32.1 g/dl (32.0-36.5); MEAN CORPUSCULAR VOLUME 93.8 fl (80.0-96.0); PLATELET COUNT, AUTOMATED 267 10^3/uL (150-450); RED BLOOD COUNT 3.55 10^6/uL (4.30-6.10); RED CELL DISTRIBUTION WIDTH 14.9 % (11.5-14.5); WHITE BLOOD COUNT 9.1 10^3/uL (4.0-10.0)
== END ==
DX: I10 Essential (primary) hypertension (principal)
CPT/HCPCS: 85027

== ENCOUNTER → 2017-06-25 | Outpatient (REF) | payer MEDICARE, MEDICAID ==
[2017-06-25 22:35] LABS: AMORPHOUS SEDIMENT SMALL (NEGATIVE); APPEARANCE, URINE CLOUDY (CLEAR); BACTERIA, URINE AUTO 3+ (NEGATIVE); BILIRUBIN, URINE AUTO NEGATIVE (NEGATIVE); BLOOD, URINE BLOOD NEGATIVE (NEGATIVE); COLOR, URINE YELLOW (YELLOW); GLUCOSE, URINE (UA) AUTO NEGATIVE (NEGATIVE); KETONE, URINE AUTO TRACE mg/dL (NEGATIVE); LEUKOCYTE ESTERASE, URINE AUTO 2+ (NEGATIVE); NITRITE, URINE AUTO NEGATIVE (NEGATIVE); PROTEIN, URINE AUTO 2+ mg/dL (NEGATIVE); RBC, URINE AUTO 40 /HPF (0-3); SPECIFIC GRAVITY URINE AUTO 1.019 (1.002-1.035); SQUAMOUS EPITHELIAL CELL UR AU 0 /HPF (0-6); UROBILINOGEN, URINE AUTO 0.2 mg/dL (0.0-2.0); WBC, URINE AUTO TNTC /HPF (0-3)
== END ==
DX: R30.0 Dysuria (principal)
CPT/HCPCS: 81001

== ENCOUNTER → 2017-07-18 | Outpatient (REF) | payer MEDICARE, MEDICAID ==
[2017-07-18 22:02] LABS: APPEARANCE, URINE TURBID (CLEAR); BACTERIA, URINE AUTO 3+ (NEGATIVE); BILIRUBIN, URINE AUTO NEGATIVE (NEGATIVE); BLOOD, URINE BLOOD 2+ (NEGATIVE); COLOR, URINE AMBER (YELLOW); GLUCOSE, URINE (UA) AUTO 3+ mg/dL (NEGATIVE); KETONE, URINE AUTO TRACE mg/dL (NEGATIVE); LEUKOCYTE ESTERASE, URINE AUTO 2+ (NEGATIVE); NITRITE, URINE AUTO NEGATIVE (NEGATIVE); PROTEIN, URINE AUTO 2+ mg/dL (NEGATIVE); RBC, URINE AUTO TNTC /HPF (0-3); SPECIFIC GRAVITY URINE AUTO 1.017 (1.002-1.035); SQUAMOUS EPITHELIAL CELL UR AU 0 /HPF (0-6); UROBILINOGEN, URINE AUTO 0.2 mg/dL (0.0-2.0); WBC, URINE AUTO TNTC /HPF (0-3)
== END ==
DX: N39.0 Urinary tract infection, site not specified (principal)
CPT/HCPCS: 81001

== ENCOUNTER → 2017-07-21 | Outpatient (REF) | payer MEDICARE, MEDICAID | DX: E11.9 Type 2 diabetes mellitus without complications (principal); D64.9 Anemia, unspecified ==

== ENCOUNTER → 2017-08-26 | Outpatient (CLI) | payer MEDICARE, MEDICAID | LOC: M RAD 12:51 | DX: Z01.818 Encounter for other preprocedural examination (principal); N18.6 End stage renal disease | CPT/HCPCS: G0365 ==

== ENCOUNTER → 2017-10-28 | Outpatient (CLI) | payer MEDICARE, MEDICAID ==
[~2017-10-28] MED LIST changes: -HEPARIN 1,000 UNITS/ML 10ML VIAL (FOR RADIOLOGY& DIALYSIS ONLY) As Ordered; +ISOVUE-300 61% 50ML VIAL (Q9967) As Ordered; -LIDOCAINE 2% MDV 20 ML VIAL As Ordered; +MIDAZOLAM INJ 2 MG/2 ML VIAL (J2250) As Ordered; +fentaNYL 100 MCG/2 ML INJECTION (J3010) As Ordered
== END | disposition home or self-care (01) ==
LOC: M IRPRO 09:29
DX: T82.590A Other mechanical complication of surgically created arteriovenous fistula, initial encounter (principal); N18.6 End stage renal disease
CPT/HCPCS: 36901

== ENCOUNTER → 2017-11-04 | Outpatient (REF) | payer MEDICARE, MEDICAID ==
[2017-11-04 13:53] LABS: HEMATOCRIT 27.5 % (42.0-52.0); HEMOGLOBIN 8.7 g/dl (13.5-17.5); MEAN CORPUSCULAR HEMOGLOBIN 30.6 pg (27.0-33.0); MEAN CORPUSCULAR HGB CONC 31.6 g/dl (32.0-36.5); MEAN CORPUSCULAR VOLUME 96.8 fl (80.0-96.0); PLATELET COUNT, AUTOMATED 181 10^3/uL (150-450); RED BLOOD COUNT 2.84 10^6/uL (4.30-6.10); RED CELL DISTRIBUTION WIDTH 15.2 % (11.5-14.5); WHITE BLOOD COUNT 6.2 10^3/uL (4.0-10.0)
[2017-11-04 14:22] LABS: ANION GAP 10 MEQ/L (8-16); BLOOD UREA NITROGEN 25 MG/DL (7-18); CALCIUM LEVEL 8.3 MG/DL (8.8-10.2); CARBON DIOXIDE LEVEL 29 MEQ/L (21-32); CHLORIDE LEVEL 102 MEQ/L (98-107); CREATININE FOR GFR 3.67 MG/DL (0.70-1.30); GLOMERULAR FILTRATION RATE 18.1 (>49); GLUCOSE, FASTING 222 MG/DL (70-100); POTASSIUM SERUM 4.4 MEQ/L (3.5-5.1); SODIUM LEVEL 141 MEQ/L (136-145)
== END ==
DX: F41.9 Anxiety disorder, unspecified (principal); I50.9 Heart failure, unspecified
CPT/HCPCS: 84443

== ENCOUNTER → 2017-11-17 | Outpatient (REF) | payer MEDICARE, MEDICAID ==
[2017-11-17 10:39] LABS: ESTIMATED AVERAGE GLUCOSE 120 MG/DL (60-110); HEMOGLOBIN A1c 5.8 %
== END ==
DX: E11.9 Type 2 diabetes mellitus without complications (principal)
CPT/HCPCS: 83036

== ENCOUNTER 2017-11-19 16:49 | Outpatient (CLI) | payer MEDICARE, MEDICAID ==
[2017-11-19] MEDS: diphenhydrAMINE 25 MG CAP PO (07:00)
[2017-11-19] MEDS: ACETAMINOPHEN TAB 650MG DOSE (2X325MG) PO (07:01)
[2017-11-19 17:18] LABS: BEDSIDE GLUCOSE 120 MG/DL (80-115)
[2017-11-19] MEDS: HumaLOG INSULIN (NovoLOG) PER UNIT SC (18:15)
== END 2017-11-20 02:00 | disposition home or self-care (01) ==
LOC: M OPCLIPED 11-20 02:00 → M MSPAV 16:52
DX: D64.9 Anemia, unspecified (principal); F41.1 Generalized anxiety disorder; R26.2 Difficulty in walking, not elsewhere classified; F25.9 Schizoaffective disorder, unspecified; I12.9 Hypertensive chronic kidney disease with stage 1 through stage 4 chronic kidney disease, or unspecified chronic kidney disease; N18.9 Chronic kidney disease, unspecified; E11.22 Type 2 diabetes mellitus with diabetic chronic kidney disease; I27.81 Cor pulmonale (chronic); Z79.4 Long term (current) use of insulin; Z79.899 Other long term (current) drug therapy
CPT/HCPCS: 36430

== ENCOUNTER → 2017-11-19 | Outpatient (REF) | payer MEDICARE, MEDICAID ==
[2017-11-19 18:14] LABS: IMMEDIATE SPIN CROSSMATCH 1 2
== END ==
PROVIDERS: Pediatrics
DX: D64.9 Anemia, unspecified (principal)

== ENCOUNTER → 2017-11-24 | Outpatient (REF) | payer MEDICARE, MEDICAID ==
[2017-11-24 10:12] LABS: HEMATOCRIT 27.5 % (42.0-52.0); HEMOGLOBIN 8.8 g/dl (13.5-17.5); MEAN CORPUSCULAR HEMOGLOBIN 30.8 pg (27.0-33.0); MEAN CORPUSCULAR VOLUME 96.2 fl (80.0-96.0); PLATELET COUNT, AUTOMATED 172 10^3/uL (150-450); RED BLOOD COUNT 2.86 10^6/uL (4.30-6.10); RED CELL DISTRIBUTION WIDTH 17.2 % (11.5-14.5); WHITE BLOOD COUNT 8.9 10^3/uL (4.0-10.0)
[2017-11-24 10:38] LABS: ANION GAP 10 MEQ/L (8-16); BLOOD UREA NITROGEN 46 MG/DL (7-18); CARBON DIOXIDE LEVEL 27 MEQ/L (21-32); CHLORIDE LEVEL 99 MEQ/L (98-107); CREATININE FOR GFR 5.85 MG/DL (0.70-1.30); GLOMERULAR FILTRATION RATE 10.6 (>49); GLUCOSE, FASTING 218 MG/DL (70-100); POTASSIUM SERUM 4.3 MEQ/L (3.5-5.1); SODIUM LEVEL 136 MEQ/L (136-145)
== END ==
DX: D64.9 Anemia, unspecified (principal); E11.9 Type 2 diabetes mellitus without complications
CPT/HCPCS: 80048

== ENCOUNTER → 2017-12-09 | Outpatient (REF) | payer MEDICARE, MEDICAID ==
[2017-12-09 15:31] LABS: HEMATOCRIT 27.4 % (42.0-52.0); HEMOGLOBIN 8.7 g/dl (13.5-17.5); MEAN CORPUSCULAR HEMOGLOBIN 32.2 pg (27.0-33.0); MEAN CORPUSCULAR HGB CONC 31.8 g/dl (32.0-36.5); MEAN CORPUSCULAR VOLUME 101.5 fl (80.0-96.0); PLATELET COUNT, AUTOMATED 134 10^3/uL (150-450); RED CELL DISTRIBUTION WIDTH 17.9 % (11.5-14.5); WHITE BLOOD COUNT 6.7 10^3/uL (4.0-10.0)
[2017-12-09 15:54] LABS: ANION GAP 10 MEQ/L (8-16); BLOOD UREA NITROGEN 26 MG/DL (7-18); CALCIUM LEVEL 8.3 MG/DL (8.8-10.2); CARBON DIOXIDE LEVEL 28 MEQ/L (21-32); CHLORIDE LEVEL 100 MEQ/L (98-107); CREATININE FOR GFR 4.35 MG/DL (0.70-1.30); GLOMERULAR FILTRATION RATE 14.9 (>49); GLUCOSE, FASTING 132 MG/DL (70-100); NT-PRO BNP 22908 PG/ML (<125); POTASSIUM SERUM 3.8 MEQ/L (3.5-5.1); SODIUM LEVEL 138 MEQ/L (136-145)
== END ==
DX: R91.8 Other nonspecific abnormal finding of lung field (principal); I51.7 Cardiomegaly; R05 Cough
CPT/HCPCS: 80048

== ENCOUNTER → 2017-12-11 | Outpatient (REF) | payer MEDICARE, MEDICAID | DX: R06.02 Shortness of breath (principal) | CPT/HCPCS: 71046 ==

== ENCOUNTER → 2018-01-01 | Outpatient (REF) | payer MEDICARE, MEDICAID | DX: Z22.322 Carrier or suspected carrier of Methicillin resistant Staphylococcus aureus (principal) | CPT/HCPCS: 87081 ==

== ENCOUNTER → 2018-01-06 | Outpatient (REF) | payer MEDICARE, MEDICAID ==
[2018-01-06 10:27] LABS: HEMATOCRIT 29.5 % (42.0-52.0); HEMOGLOBIN 9.1 g/dl (13.5-17.5); MEAN CORPUSCULAR HEMOGLOBIN 31.5 pg (27.0-33.0); MEAN CORPUSCULAR HGB CONC 30.8 g/dl (32.0-36.5); MEAN CORPUSCULAR VOLUME 102.1 fl (80.0-96.0); PLATELET COUNT, AUTOMATED 141 10^3/uL (150-450); RED BLOOD COUNT 2.89 10^6/uL (4.30-6.10); RED CELL DISTRIBUTION WIDTH 17.6 % (11.5-14.5); WHITE BLOOD COUNT 5.7 10^3/uL (4.0-10.0)
== END ==
DX: D64.9 Anemia, unspecified (principal)
CPT/HCPCS: 85027

== ENCOUNTER → 2018-01-11 | Outpatient (REF) | payer MEDICARE, MEDICAID | DX: Z22.322 Carrier or suspected carrier of Methicillin resistant Staphylococcus aureus (principal) | CPT/HCPCS: 87081 ==

== ENCOUNTER → 2018-01-19 | Outpatient (REF) | payer MEDICARE, MEDICAID ==
[2018-01-19 10:41] LABS: ESTIMATED AVERAGE GLUCOSE 137 MG/DL (60-110); HEMOGLOBIN A1c 6.4 %
== END ==
DX: E11.9 Type 2 diabetes mellitus without complications (principal)
CPT/HCPCS: 83036

== ENCOUNTER → 2018-01-20 | Outpatient (REF) | payer MEDICARE, MEDICAID | DX: Z22.322 Carrier or suspected carrier of Methicillin resistant Staphylococcus aureus (principal) | CPT/HCPCS: 87081 ==

== ENCOUNTER → 2018-01-21 | Outpatient (CLI) | payer MEDICARE, MEDICAID ==
[~2018-01-21] MED LIST changes: +LIDOCAINE 2% MDV 20 ML VIAL As Ordered
== END | disposition home or self-care (01) ==
LOC: M IRPRO 08:16
DX: T82.858A Stenosis of other vascular prosthetic devices, implants and grafts, initial encounter (principal); N18.6 End stage renal disease
CPT/HCPCS: 36902

== ENCOUNTER → 2018-02-08 | Outpatient (CLI) | payer MEDICARE, MEDICAID | LOC: M IRPRO 09:20 | DX: Z53.29 Procedure and treatment not carried out because of patient's decision for other reasons (principal) ==

== ENCOUNTER → 2018-02-10 | Outpatient (CLI) | payer MEDICARE, MEDICAID ==
[~2018-02-10] MED LIST changes: -MIDAZOLAM INJ 2 MG/2 ML VIAL (J2250) As Ordered; -fentaNYL 100 MCG/2 ML INJECTION (J3010) As Ordered
== END | disposition home or self-care (01) ==
LOC: M IRPRO 07:58
DX: T82.858A Stenosis of other vascular prosthetic devices, implants and grafts, initial encounter (principal); N18.6 End stage renal disease; Z99.2 Dependence on renal dialysis
CPT/HCPCS: 36901

== ENCOUNTER 2018-02-25 14:04 | Outpatient (CLI) | payer MEDICARE, MEDICAID ==
[2018-02-25] MEDS: diphenhydrAMINE 25 MG CAP PO (15:45)
[2018-02-25 15:46] LABS: IMMEDIATE SPIN CROSSMATCH 1 2
[2018-02-25] MEDS: ACETAMINOPHEN 325 MG TAB PO (15:53)
== END 2018-02-25 22:55 ==
LOC: M INFU 14:04 → M MSPAV 14:06 → M INFU 22:55
DX: D64.9 Anemia, unspecified (principal)
CPT/HCPCS: 36430

== ENCOUNTER → 2018-03-08 | Outpatient (CLI) | payer MEDICARE, MEDICAID | END | disposition home or self-care (01) | LOC: M IRPRO 09:20 | DX: T82.590A Other mechanical complication of surgically created arteriovenous fistula, initial encounter (principal); N18.6 End stage renal disease | CPT/HCPCS: 36901 ==

== ENCOUNTER → 2018-03-24 | Outpatient (CLI) | payer MEDICARE, MEDICAID ==
[~2018-03-24] MED LIST changes: +/GLYB5TA; +/TAMS4CA; +/TIOT18INH; +ACCU5TAB7; +ACCUPRIL40 PO; +ACE65ERTAB PO; +ACEP650S PR; +ACET1TAB55 PO; +ACET500T15 PO; +ALBU83IN INH; +ALBU83IN NEB; +ALCOHOL TOP; +AMITRIP25 PO; +AMLO10TA5 PO; +ASP81 PO; +ASPI1TAB15 PO; +ASPI81CH PO; +ASPI81TA3; +ASPI81TAEC PO; +ASTELIN; +ASTELIN NASAL; +ATENOLOL50 PO; +ATOR40TA75 PO; +ATRO0.06; +AVOD0.5C; +CALC1CAP31 PO; +CALC500C16 PO; +CARV12.5 PO; +CARV3.12 PO; +CEFT1INJ3 IM; +CELLOPD OU; +CLAR5CHW; +CLARITD12H PO; +CLARITIN10 PO; +COLA100C5 PO; +DIAB5TAB; +DITROPAXL5 PO; +DOCU100T5 PO; +DOXYCYC100 PO; +DULC10SU2 PR; +DUONSOL; +EFFE37.5 PO; +ENEMENE4 PR; +ENEMENE6 PR; +EXPECTORANT; +FAMO1TAB11 PO; +FAMO20TA PO; +FERR1TAB8 PO; +FIRS50SO PO; +FLOM0.4C39 PO; +FLONASESPR NASAL; +GLUC1000; +GLUC1INJ11 INJ; +GLUCOSE; +GLUCOVAN PO; +HUMA75VL; +HYDR25TA PO; +IBUP400T; +IBUP600T; +IMODIUM2 PO; +INSUHUMDS SC; +INSULANT; +INVE3TAB2; +INVE3TAB2 PO; +INVE6TAB3; -ISOVUE-300 61% 50ML VIAL (Q9967) As Ordered; +ISOVUE-300 61% 50ML VIAL (Q9967) As Ordered ONE; +LASI80TA; +LASIX PO; +LEVA31IN; -LIDOCAINE 2% MDV 20 ML VIAL As Ordered; +LIDOCAINE 2% MDV 20 ML VIAL As Ordered ONE; +LISI-672 PO; +LOVAZA PO; +METO5TA PO; +MIDAZOLAM INJ 2 MG/2 ML VIAL (J2250) As Ordered ONE; +MILK120011 PO; +MOTRIN800 PO; +MUCI600T31 PO; +MUCINEX PO; +NAPROS500 PO; +NAPROSY375 PO; +NORV5TAB PO; +NOVOLOG100 MG/ML; +OMACOR; +OMACOR PO; +OMEP20CA3 PO; +OXCA300T14 PO; +PREPCRE PR; +PREVACID30 PO; +PRIL20CA; +PRIL40CA; +PROB1TAB2 PO; +PROC20004 SQ; +RISATAB3 PO; +SENN-23 PO; +SENN1TAB10 PO; +SERO200T; +SING10TA31; +SYRINS1CC SUBQ; +TENO25TA; +TORS20TA2 PO; +TOUJ1.2I SC; +TRIC145T19; +TRICOR145 PO; +ULTRTA PO; +VENL150C43 PO; +VENL37.5; +VENL75TA2; +VENL75TA2 PO; +VITA100054 PO; +VITA100066 PO; +VITAD1000T PO; +XANA0.25; +ZITHROZPAK PO; +ZOCO40TA; +ZOCOR40 PO; +ZYRT10CA PO; +[UNRECOGNIZED DRUG - CODE] PO; +[UNRECOGNIZED DRUG - CODE] PO; +[UNRECOGNIZED DRUG - OTHER] -; +[UNRECOGNIZED DRUG - OTHER] INHALATION; +[UNRECOGNIZED DRUG - SUPPLY]; +fentaNYL 100 MCG/2 ML INJECTION (J3010) As Ordered ONE
--- NOTE | 2018-04-28 07:22 | REPIR ---
DATE OF PROCEDURE: 03/24/2018 PREPROCEDURE DIAGNOSES: End stage renal disease, dysfunctional left brachiocephalic arteriovenous fistula, right internal jugular vein tunneled central venous catheter. POSTPROCEDURE DIAGNOSES: End stage renal disease, dysfunctional left brachiocephalic arteriovenous fistula, right internal jugular vein tunneled central venous catheter. PROCEDURE: Left brachiocephalic arteriovenous fistulogram, retrograde left brachial artery angiogram, left cephalic vein angioplasty with 10 mm x 80 mm balloon. SURGEON: Dr. Charline Villagomez PRINTER ASSISTANT: Sandra Edwards and Michael Kerr. INDICATION: The patient is a 63-year-old male with end-stage renal disease who dialyzes through a right internal jugular vein tunneled central venous catheter and underwent creation of a left brachiocephalic arteriovenous fistula which has been slow to mature and required balloon angioplasty for attempts at maturation of the fistula. The last fistulogram showed the size of the vessel to be approximately 8 mm in diameter but the patient continues to have difficulty with accessing of the fistula and is unable to use the fistula for hemodialysis access. The patient will undergo a repeat fistulogram with possible angioplasty, stent and/or atherectomy. Risks, benefits and alternative treatment options were discussed with the patient. Alternative treatment options included but were not limited to no intervention. Risks include but were not limited to infection, bleeding, loss of arteriovenous access field, possible need for open surgical intervention, cerebrovascular accident, myocardial infarction, pulmonary embolus, deep venous thrombosis (DVT), loss of limb, loss of life, and poor outcome. The procedure was explained and described the patient in detail including drawing of pictures demonstrating the procedure and the pertinent anatomy. All the patient's questions were answered. Benefits included but were not limited to increasing the size of the fistula, able to the use the fistula for hemodialysis access. The patient acknowledges understanding of these risks, benefits and alternative treatment options. The patient accepts the risks and consents to proceed. There were no guarantees made to the patient regarding the procedure and poor outcome. ANESTHESIA: Local with sedation with 2 mg Versed, 100 mcg of Fentanyl and 1 mL of 2% lidocaine. FLUORO TIME: 1.0 minutes. CONTRAST: 3 mL of Isovue 300 SEDATION TIME: From 08:15 a.m. to 08:47 a.m. for a total 32 minutes. The sedation was performed by myself through the access in the arteriovenous fistula. The cardiopulmonary monitoring was performed by the registered nurse in the room under my direct supervision. I was present for and directed the entire case. The patient was returned to pre-sedation status at the completion of the procedure with no sedation related complications. COMPLICATIONS: None. DRAINS: None. SPECIMENS: None. IMPLANTS: None. PROCEDURE: The patient was taken to the angiography suite, placed supine on the angiography room table and then prepped and draped in a standard surgical fashion. The left brachiocephalic arteriovenous fistula was cannulated with a micropuncture needle after anesthetizing the overlying skin with 2% lidocaine. The micropuncture wire was advanced to the micropuncture needle which was upsized to a micropuncture sheath. A fistulogram was performed showing the cephalic vein to be patent along its course measuring approximately 7-8 mm in diameter. There were a few areas of mild narrowing within the cephalic vein which were approximately 60-70% stenosis. The [employer]son wire was advanced through the micropuncture sheath which was upsized to a #6-Australian sheath. The entire length of the cephalic vein from the puncture site at the antecubital fossa to the subclavian artery to the subclavian vein junction were angioplastied with a 10 mm x 80 mm balloon with prolonged inflation time. A completion fistulogram showed improved size and flow through the fistula. A retrograde left brachial artery angiogram was performed during inflation of the 10 x 80 mm balloon in the cephalic vein and this showed good retrograde filling of the brachial artery proximally and distally with no stenosis noted at the arteriovenous anastomosis. Catheters and wires were removed. The sheath was removed and a #2-0 Prolene suture placed at the puncture site for hemostasis. Dressings were then applied. The patient tolerated the procedure well. All instrument, sponge, and needle counts were correct at the end of the case. There were no complications. Dr. Villagomez was present for and directed the entire case. The patient was transferred to the holding area in stable condition. The procedure and results were discussed with the patient in the postoperative holding area and all his questions were answered. RADIOLOGIC SUPERVISION INTERPRETATION: The initial fistulogram showed the cephalic vein to be patent but measuring approximately 7-8 mm in diameter with areas of stenosis along its course. The cephalic vein from the puncture site of the antecubital fossa to the junction of the subclavian vein with angioplasty with 10 mm x 80 mm balloon with prolonged inflation time. A retrograde brachial artery angiogram was performed during inflation of the 10 mm x 80 mm balloon. This showed the remainder of the cephalic vein to be patent to the brachial artery. There was good flow in the brachial artery proximal and distal to the arteriovenous anastomosis and no stenosis at the arteriovenous anastomosis. The completion fistulogram showed the cephalic vein to be widely patent with improved size and flow. CONCLUSION: The patient underwent successful angioplasty of the cephalic vein from the antecubital fossa to the subclavian vein junction with improved size of flow to the arteriovenous fistula. The patient will continue to attempt usage of the left brachiocephalic arteriovenous fistula and once successfully using the fistula, the patient's PermCath will be removed.
== END | disposition home or self-care (01) ==
LOC: M IRPRO 07:31
PROVIDERS: ATTEND Surgery Vascular Surgery
DX: T82.858A Stenosis of other vascular prosthetic devices, implants and grafts, initial encounter (principal); N18.6 End stage renal disease; Z99.2 Dependence on renal dialysis
CPT/HCPCS: 36902; 99152; 99153; C1725; C1769; C1894; J2250; J3010; Q9967

== ENCOUNTER → 2018-04-23 | Outpatient (REF) | payer MEDICARE, MEDICAID ==
[~2018-04-23] MED LIST changes: -ISOVUE-300 61% 50ML VIAL (Q9967) As Ordered ONE; -LIDOCAINE 2% MDV 20 ML VIAL As Ordered ONE; -MIDAZOLAM INJ 2 MG/2 ML VIAL (J2250) As Ordered ONE; -fentaNYL 100 MCG/2 ML INJECTION (J3010) As Ordered ONE
[2018-04-23 01:51] LABS: HEMATOCRIT 25.2 % (42.0-52.0); HEMOGLOBIN 7.9 g/dl (13.5-17.5); MEAN CORPUSCULAR HEMOGLOBIN 33.1 pg (27.0-33.0); MEAN CORPUSCULAR HGB CONC 31.3 g/dl (32.0-36.5); MEAN CORPUSCULAR VOLUME 105.4 fl (80.0-96.0); PLATELET COUNT, AUTOMATED 151 10^3/uL (150-450); RED BLOOD COUNT 2.39 10^6/uL (4.30-6.10); WHITE BLOOD COUNT 9.4 10^3/uL (4.0-10.0)
[2018-04-23 02:21] LABS: INFLUENZA A AMPLIFICATION NEGATIVE (NEGATIVE); INFLUENZA B AMPLIFICATION NEGATIVE (NEGATIVE)
== END ==
PROVIDERS: ATTEND Internal Medicine
DX: R50.9 Fever, unspecified (principal)

== ENCOUNTER → 2018-04-23 | Outpatient (REF) | payer MEDICARE, MEDICAID ==
--- NOTE | 2018-04-23 12:45 | REP ---
Portable chest x-ray: Single view. History: Cough. Fever. Comparison chest x-ray December 11, 2017. Findings: Penetration and exam quality is inhibited by patient body habitus. There is a right-sided tunnel catheter terminating in the expected location of the superior vena cava as before. Pulmonary vasculature is cephalized and indistinct. No acute infiltrate is seen. Heart is mildly prominent unchanged. Impression: Decreased penetration related to patient body habitus. No definite infiltrate. Pulmonary vascular congestion. Central venous line again noted unchanged. Electronically Signed by Scott Huynh MD 04/23/2018 07:52 P
[2018-04-23 12:47] LABS: HEMATOCRIT 26.2 % (42.0-52.0); HEMOGLOBIN 8.1 g/dl (13.5-17.5); MEAN CORPUSCULAR HGB CONC 30.9 g/dl (32.0-36.5); MEAN CORPUSCULAR VOLUME 103.6 fl (80.0-96.0); PLATELET COUNT, AUTOMATED 141 10^3/uL (150-450); RED BLOOD COUNT 2.53 10^6/uL (4.30-6.10)
== END ==
PROVIDERS: ATTEND Internal Medicine
DX: R50.9 Fever, unspecified (principal); R05 Cough

== ENCOUNTER 2018-04-24 17:22 | Emergency (ER) | payer MEDICARE, MEDICAID ==
[~2018-04-24] VITALS: Ht 167.6 cm; Wt 159.1 kg
[~2018-04-24 17:22] MED LIST changes: -ACE65ERTAB PO; -ALBU83IN NEB; -CEFT1INJ3 IM; -EFFE37.5 PO; -ENEMENE6 PR; -FAMO1TAB11 PO; -MUCI600T31 PO; -VITA100054 PO; -[UNRECOGNIZED DRUG - CODE] PO
[2018-04-24 18:46] LABS: BASO % 0.4 % (0.0-1.0); EOS # 0.4 10^3/uL (0.0-0.50); EOS % 3.8 % (0.0-3.0); HEMATOCRIT 26.4 % (42.0-52.0); HEMOGLOBIN 8.3 g/dl (13.5-17.5); LYMPH # 0.5 10^3/uL (1.5-4.5); LYMPH % 5.2 % (24.0-44.0); MEAN CORPUSCULAR HEMOGLOBIN 32.7 pg (27.0-33.0); MEAN CORPUSCULAR HGB CONC 31.4 g/dl (32.0-36.5); MEAN CORPUSCULAR VOLUME 103.9 fl (80.0-96.0); MONO # 0.9 10^3/uL (0.0-0.8); MONO % 8.9 % (0.0-5.0); NEUTROPHILS # 7.7 10^3/uL (1.8-7.7); NEUTROPHILS % 81.4 % (36.0-66.0); PLATELET COUNT, AUTOMATED 151 10^3/uL (150-450); RED BLOOD COUNT 2.54 10^6/uL (4.30-6.10); WHITE BLOOD COUNT 9.5 10^3/uL (4.0-10.0)
[2018-04-24 18:58] LABS: CREATININE FOR GFR 3.83 MG/DL (0.70-1.30); GLOMERULAR FILTRATION RATE 17.2 (>49); POTASSIUM SERUM 4.3 MEQ/L (3.5-5.1)
[2018-04-24 18:59] LABS: BILIRUBIN,DIRECT 0.2 MG/DL (0.0-0.2); BILIRUBIN,TOTAL 0.5 MG/DL (0.2-1.0); CALCIUM LEVEL 8.4 MG/DL (8.8-10.2); TOTAL PROTEIN 7.4 GM/DL (6.4-8.2)
[2018-04-24 19:38] LABS: INFLUENZA A AMPLIFICATION NEGATIVE (NEGATIVE); INFLUENZA B AMPLIFICATION NEGATIVE (NEGATIVE)
[2018-04-24] MEDS ORDERED: LevoFLOXacin IV 500 MG in APPROPRIATE DILUENT 1 EA IV ONE (19:45)
[2018-04-24] MEDS ORDERED: FAMO1TAB11 PO (20:43)
[2018-04-24] MEDS ORDERED: EFFE37.5 PO (20:43)
[2018-04-24] MEDS ORDERED: AMLO10TA5 PO (20:43)
[2018-04-24] MEDS ORDERED: VITA100054 PO (20:55)
[2018-04-24] MEDS ORDERED: [UNRECOGNIZED DRUG - CODE] PO (20:55)
[2018-04-24 20:59] VITALS: BP 136/64
[2018-04-24] MEDS ORDERED: MUCI600T31 PO (21:00)
[2018-04-24] MEDS ORDERED: CEFT1INJ3 IM (21:00)
[2018-04-24] MEDS ORDERED: ALBU83IN NEB (21:02)
[2018-04-24] MEDS ORDERED: ENEMENE6 PR (21:08)
[2018-04-24] MEDS ORDERED: ACE65ERTAB PO (21:11)
--- NOTE | 2018-04-25 09:31 | REP ---
AP LATERAL CHEST: 04/24/2018. Comparison: 04/23/2018, 12/09/2017 AP portable chest. Clinical history: SIRS. Cough and fever. Findings: Two-view show a better frontal view without the lordotic projection seen on yesterday's portable chest. There is a right jugular dialysis catheter unchanged. Patchy right base infiltrate on the frontal view and a right effusion noted on the lateral view. The left lung remains clear. Heart is enlarged with both left atrial and left ventricular enlargement noted. Some venous engorgement indicating pulmonary venous hypertension. No demario edema. Impression: 1. Right base infiltrates with effusion can now be seen with two-view x-ray. 2. Moderate cardiomegaly with left atrial and ventricular enlargement along with some venous congestion. No demario edema. Electronically Signed by Brandan Everett MD 04/25/2018 09:58 A
--- NOTE | 2018-04-25 10:35 | ECGEPIP ---
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
== END 2018-04-24 21:37 | disposition home or self-care (01) ==
LOC: M ED 17:22 → EDBD 17:22 → M ED 21:37
DX: J18.1 Lobar pneumonia, unspecified organism (principal); I51.7 Cardiomegaly; R06.02 Shortness of breath; F31.9 Bipolar disorder, unspecified; I10 Essential (primary) hypertension; E11.9 Type 2 diabetes mellitus without complications; J44.9 Chronic obstructive pulmonary disease, unspecified; I50.9 Heart failure, unspecified; D64.9 Anemia, unspecified; E78.5 Hyperlipidemia, unspecified; J96.90 Respiratory failure, unspecified, unspecified whether with hypoxia or hypercapnia; I27.0 Primary pulmonary hypertension; G47.33 Obstructive sleep apnea (adult) (pediatric); Z79.4 Long term (current) use of insulin; Z86.61 Personal history of infections of the central nervous system; Z79.899 Other long term (current) drug therapy
CPT/HCPCS: 36415; 71046; 80048; 80076; 83605; 85025; 87040; 87502; 93005; 93041; 94760; 96365; 99285; J1956

== ENCOUNTER → 2018-04-26 | Outpatient (REF) | payer MEDICARE, MEDICAID ==
[~2018-04-26] MED LIST changes: +ACE65ERTAB PO; +ALBU83IN NEB; +CEFT1INJ3 IM; +EFFE37.5 PO; +ENEMENE6 PR; +FAMO1TAB11 PO; +MUCI600T31 PO; +VITA100054 PO; +[UNRECOGNIZED DRUG - CODE] PO
[2018-04-26 09:39] LABS: HEMATOCRIT 25.8 % (42.0-52.0); HEMOGLOBIN 7.9 g/dl (13.5-17.5); MEAN CORPUSCULAR HEMOGLOBIN 31.7 pg (27.0-33.0); MEAN CORPUSCULAR HGB CONC 30.6 g/dl (32.0-36.5); MEAN CORPUSCULAR VOLUME 103.6 fl (80.0-96.0); PLATELET COUNT, AUTOMATED 160 10^3/uL (150-450); RED BLOOD COUNT 2.49 10^6/uL (4.30-6.10); WHITE BLOOD COUNT 7.3 10^3/uL (4.0-10.0)
== END ==
PROVIDERS: ATTEND Internal Medicine
DX: R05 Cough (principal); R50.9 Fever, unspecified

== ENCOUNTER → 2018-04-29 | Outpatient (REF) | payer MEDICARE, MEDICAID ==
[~2018-04-29] MED LIST changes: +VITA200015 PO
[2018-04-29 11:11] LABS: HEMATOCRIT 24.7 % (42.0-52.0); HEMOGLOBIN 7.7 g/dl (13.5-17.5); MEAN CORPUSCULAR HGB CONC 31.2 g/dl (32.0-36.5); MEAN CORPUSCULAR VOLUME 102.5 fl (80.0-96.0); PLATELET COUNT, AUTOMATED 179 10^3/uL (150-450); RED BLOOD COUNT 2.41 10^6/uL (4.30-6.10); WHITE BLOOD COUNT 7.9 10^3/uL (4.0-10.0)
== END ==
PROVIDERS: ATTEND Internal Medicine
DX: D64.9 Anemia, unspecified (principal)

== ENCOUNTER 2018-04-30 12:21 | Outpatient (CLI) | payer MEDICARE, MEDICAID ==
[~2018-04-30 12:21] MED LIST changes: -VITA200015 PO
[2018-04-30 14:00] VITALS: BP 122/70
[2018-04-30] MEDS ORDERED: ACETAMINOPHEN TAB 650MG DOSE (2X325MG) PO ONE (17:15)
[2018-04-30] MEDS ORDERED: diphenhydrAMINE 25 MG CAP PO ONE (20:30)
[2018-04-30] MEDS ORDERED: PALIPERIDONE 3 MG ER TAB (INVEGA) PO SCH (21:00)
[2018-04-30 22:00] VITALS: BP 127/69
[2018-05-01] MEDS ORDERED: **hydrALAZINE** 10 MG TAB PO SCH
[2018-05-01] MEDS ORDERED: DEXTROSE 50% 50 ML SYRINGE IV PRN (01:00)
[2018-05-01] MEDS ORDERED: ACETAMINOPHEN TAB 650MG DOSE (2X325MG) PO PRN (01:00)
[2018-05-01] MEDS ORDERED: guaiFENesin ER 600 MG TAB PO SCH (01:00)
[2018-05-01] MEDS ORDERED: GLUCOSE 4 GM CHEW TABLET PO PRN (01:00)
[2018-05-01] MEDS ORDERED: GLUCAGON FOR INJ 1 MG VIAL (J1610) SC PRN (01:00)
[2018-05-01] MEDS ORDERED: VITA200015 PO (02:02)
[2018-05-01] MEDS: **hydrALAZINE HCL** 25 MG TAB PO SCH ×2 (02:48→06:45)
[2018-05-01 06:00] VITALS: BP 143/79
[2018-05-01 06:45] VITALS: BP 143/79
[2018-05-01] MEDS ORDERED: HumaLOG INSULIN (NovoLOG) PER UNIT SC SCH ×2 (07:30→21:00)
[2018-05-01] MEDS ORDERED: OXcarbazepine 300 MG TAB PO SCH (09:00)
[2018-05-01] MEDS ORDERED: TAMSULOSIN 0.4 MG CAP PO SCH ×2 (09:00)
[2018-05-01] MEDS ORDERED: FAMOTIDINE 20 MG TAB PO SCH (09:00)
[2018-05-01] MEDS ORDERED: VENLAFAXINE **XR** 37.5 MG CAPSULE PO SCH (09:00)
[2018-05-01] MEDS ORDERED: amLODIPine 10 MG TAB PO SCH (09:00)
[2018-05-01] MEDS ORDERED: VENLAFAXINE **XR** 75MG CAPSULE PO SCH (09:00)
[2018-05-01] MEDS ORDERED: ATORVASTATIN 20 MG TAB PO SCH (21:00)
== END 2018-05-01 11:01 ==
LOC: M OPCLI5PR 12:21 → M MS5PR 12:30 → M OPCLI5PR 05-01 11:01
PROVIDERS: ATTEND Internal Medicine
DX: N18.6 End stage renal disease (principal); D63.1 Anemia in chronic kidney disease
CPT/HCPCS: 36430; 86920; P9016

== ENCOUNTER → 2018-05-04 | Outpatient (CLI) | payer MEDICARE, MEDICAID ==
[~2018-05-04] MED LIST changes: +LIDOCAINE 2% MDV 20 ML VIAL As Ordered ONE; +VITA200015 PO
--- NOTE | 2018-05-31 11:38 | ROOPDOC ---
[facility] Report Of Operation Report of Operation DATE OF PROCEDURE: 05/04/2018 PREPROCEDURE DIAGNOSES: End-stage renal disease, functioning left brachiocephalic autogenous arteriovenous fistula. POSTPROCEDURE DIAGNOSES: End-stage renal disease, functioning left brachiocephalic autogenous arteriovenous fistula. PROCEDURE: Right internal jugular vein tunneled central venous catheter removal. SURGEON: Dr. Charline Villagomez M.D. DIRECTOR OF CURRICULUM AND INSTRUCTION: None INDICATION: Patient is 63-year-old male with end-stage renal disease who underwent placement of a right internal jugular vein tunneled central venous catheter for hemodialysis access. The patient now has a functioning arteriovenous fistula in the left upper extremity and no longer requires the right internal jugular vein tunneled central venous catheter for hemodialysis access. Patient will undergo removal of the right internal jugular vein tunneled central venous catheter. The procedure was explained and described to the patient in detail including drawing of pictures describing the procedure and anatomy. Risks, benefits and alternative treatment options were discussed with the patient. Benefits included but were not limited to removal of the catheter with reduction in complications from central venous catheters. Alternative treatment options included but were not limited to no intervention. Risks included but were not limited to infection, bleeding, pneumothorax, hemothorax, possible need for open surgical intervention, adverse reaction to the anesthetic, adverse or allergic reaction to the material used for surgical prepping and draping, nerve injury, cerebrovascular accident, myocardial infarction, pulmonary embolus, deep venous thrombosis, loss of limb, loss of life, poor satisfaction and poor outcome. Risks of not performing the procedure included but were not limited to infection, bleeding, central venous stenosis and/or thrombosis, loss of life and poor outcome. Patient's questions were answered. Patient voices understanding of these risks, benefits and alternative treatment options. Patient voices acceptance of these risks, benefits and alternative treatment options and consents to proceed with right internal jugular vein tunneled central venous catheter removal. There were no promises or guarantees made to the patient regarding the procedure or outcome. ANESTHESIA: None ESTIMATED BLOOD LOSS: 5 mL IV FLUIDS: None DRAINS: None CONTRAST: None COMPLICATIONS: None IMPLANTS: None SPECIMENS: None PROCEDURE: Patient was prepped and draped in a standard surgical fashion. A time out was completed by myself and all the team members in the room involved at the initiation of the procedure, confirming the correct patient , procedure and laterality. Manual traction was applied to the catheter which did release the subcutaneous cuff spontaneously. The catheter was then removed and manual compression applied at the exit site in the right chest and at the right internal jugular vein entry site for hemostasis. Once hemostasis was achieved, dressings were then applied. Patient tolerated the procedure well. All instrument, sponge and needle counts were correct at the end of the case. There were no complications. Dr. Villagomez was present for and directed the entire case. Patient was discharged in stable condition. The procedure and results were discussed with the patient in the postprocedure recovery area and all of his questions were answered. Solitario Villagomez MD May 31, 2018 11:37
== END | disposition home or self-care (01) ==
LOC: M IRPRO 09:46
PROVIDERS: ATTEND Physician Assistant
DX: Z45.2 Encounter for adjustment and management of vascular access device (principal); N18.6 End stage renal disease; Z99.2 Dependence on renal dialysis

== ENCOUNTER → 2018-05-11 | Outpatient (REF) | payer MEDICARE, MEDICAID ==
[~2018-05-11] MED LIST changes: -LIDOCAINE 2% MDV 20 ML VIAL As Ordered ONE
[2018-05-11 09:33] LABS: HEMATOCRIT 29.7 % (42.0-52.0); HEMOGLOBIN 9.1 g/dl (13.5-17.5); MEAN CORPUSCULAR HEMOGLOBIN 30.7 pg (27.0-33.0); MEAN CORPUSCULAR HGB CONC 30.6 g/dl (32.0-36.5); MEAN CORPUSCULAR VOLUME 100.3 fl (80.0-96.0); PLATELET COUNT, AUTOMATED 179 10^3/uL (150-450); RED BLOOD COUNT 2.96 10^6/uL (4.30-6.10); WHITE BLOOD COUNT 7.8 10^3/uL (4.0-10.0)
[2018-05-11 09:58] LABS: CALCIUM LEVEL 8.6 MG/DL (8.8-10.2); CREATININE FOR GFR 5.82 MG/DL (0.70-1.30); GLOMERULAR FILTRATION RATE 10.6 (>49); POTASSIUM SERUM 5.5 MEQ/L (3.5-5.1)
--- NOTE | 2018-05-12 09:02 | REP ---
Chest one-view HISTORY: Shortness of breath Comparison: None Patchy density is present in the right lower lobe consistent with an infiltrate. The left lung is clear. A small right pleural effusion is present. . The cardiac silhouette is enlarged. The pulmonary vasculature is normal in appearance. Impression: Right lower lobe infiltrate and small right pleural effusion slightly increased compared to the previous study. Electronically Signed by Pradeep Jacques MD 05/12/2018 08:54 A
== END ==
PROVIDERS: ATTEND Internal Medicine
DX: D64.9 Anemia, unspecified (principal)

== ENCOUNTER → 2018-05-12 | Outpatient (REF) | payer MEDICARE, MEDICAID | LOC: M RAD 10:29 | PROVIDERS: ATTEND Internal Medicine | DX: R91.8 Other nonspecific abnormal finding of lung field (principal); J90 Pleural effusion, not elsewhere classified ==

== ENCOUNTER → 2018-05-25 | Outpatient (REF) | payer MEDICARE, MEDICAID ==
[2018-05-25 09:43] LABS: HEMATOCRIT 32.6 % (42.0-52.0); HEMOGLOBIN 9.8 g/dl (13.5-17.5); MEAN CORPUSCULAR HEMOGLOBIN 31.1 pg (27.0-33.0); MEAN CORPUSCULAR HGB CONC 30.1 g/dl (32.0-36.5); MEAN CORPUSCULAR VOLUME 103.5 fl (80.0-96.0); PLATELET COUNT, AUTOMATED 144 10^3/uL (150-450); RED BLOOD COUNT 3.15 10^6/uL (4.30-6.10); WHITE BLOOD COUNT 8.2 10^3/uL (4.0-10.0)
[2018-05-25 11:15] LABS: CALCIUM LEVEL 8.5 MG/DL (8.8-10.2); CREATININE FOR GFR 6.14 MG/DL (0.70-1.30); POTASSIUM SERUM 6.2 MEQ/L (3.5-5.1)
== END ==
PROVIDERS: ATTEND Internal Medicine
DX: D64.9 Anemia, unspecified (principal)

== ENCOUNTER → 2018-06-16 | Outpatient (CLI) | payer MEDICARE, MEDICAID ==
[~2018-06-16] MED LIST changes: +E-Z-GAS II EFFERVESCENT PACKET (SODIUM BICARB./CITRIC ACID/SIMETHICONE) As Ordered ONE; +E-Z-HD 98% w/w 340GM SUSP BTL As Ordered ONE; +E-Z-PAQUE 96% w/w SUSP 176GM BTL As Ordered ONE
--- NOTE | 2018-06-16 21:52 | REP ---
UPPER GI SINGLE CONTRAST The images were reviewed with Dr. Everett. The images were reviewed with Dr. Everett. The basketball scout film shows no organomegaly or pathological masses. The test gas pattern is nonspecific. Exam is limited due to patient mobility. Liquid barium was administered in the right lateral recumbent position. The oral and pharyngeal stages of deglutition demonstrate laryngeal penetration. Esophageal transport is prompt and efficient and there is no esophagitis stricture mucosal ring or hiatal hernia. Gastroesophageal reflux is not demonstrated on this examination. The stomach is grossly normal. The rugal folds are smooth and regular. There is no evidence of gastritis neoplasm or ulcer disease. In the duodenum there are thickened folds however these are unchanged compared to a previous examination performed on 05/21/2007. These findings may represent old scarring. The visualized portion of the proximal small bowel appears normal in course and caliber. Impression: 1. There is laryngeal penetration. 2. There are thickened folds in the duodenum however these are unchanged compared to a previous examination performed on 05/21/2007. 2.5 minutes of fluoroscopy time was utilized for this procedure. Reviewed by RUTH ANN Eden 06/16/2018 05:56 P Electronically Signed by Brandan Everett MD 06/16/2018 09:42 P
== END ==
LOC: M RAD 09:45
PROVIDERS: ATTEND Surgery
DX: K21.9 Gastro-esophageal reflux disease without esophagitis (principal); D64.9 Anemia, unspecified

== ENCOUNTER → 2018-06-21 | Outpatient (CLI) | payer MEDICARE, MEDICAID ==
[~2018-06-21] MED LIST changes: -/GLYB5TA; -/TAMS4CA; -/TIOT18INH; -ASPI81CH PO; +ASPI81CH49 PO; -CEFT1INJ3 IM; +CEFT1INJ5 IM; -E-Z-GAS II EFFERVESCENT PACKET (SODIUM BICARB./CITRIC ACID/SIMETHICONE) As Ordered ONE; -E-Z-HD 98% w/w 340GM SUSP BTL As Ordered ONE; -E-Z-PAQUE 96% w/w SUSP 176GM BTL As Ordered ONE; +FLOM0.4C39; +GLYB1TAB29; +ISOVUE-300 61% 50ML VIAL (Q9967) As Ordered ONE; +LEVA0.3131; -LEVA31IN; +LIDOCAINE 2% MDV 20 ML VIAL As Ordered ONE; +MIDAZOLAM INJ 2 MG/2 ML VIAL (J2250) As Ordered ONE; +SPIR1CAP; +fentaNYL 100 MCG/2 ML INJECTION (J3010) As Ordered ONE
--- NOTE | 2018-07-07 10:51 | REPIR ---
DATE OF PROCEDURE: 06/21/2018 PREOPERATIVE DIAGNOSES: End-stage renal disease, dysfunctional left brachiocephalic arteriovenous fistula. POSTOPERATIVE DIAGNOSES: End-stage renal disease, dysfunctional left brachiocephalic arteriovenous fistula. PROCEDURE: Left brachiocephalic arteriovenous fistulogram, retrograde left brachial artery angiogram, left cephalic vein angioplasty with 8 x 200 balloon, left subclavian vein angioplasty with 8 x 200 balloon, left cephalic vein angioplasty with 10 x 80 balloon, left subclavian vein angioplasty with 10 x 80 balloon. ATTENDING SURGEON: Dr. Charline Villagomez FOREIGN STUDENT ADVISER: Joy Sawyer ANESTHESIA: Local with sedation with 2 mg Versed, 100 mcg of fentanyl, 2 mL of 2% lidocaine. FLUORO TIME: 0.9 minutes. CONTRAST: 7 mL of Isovue-300. SEDATION TIME: From 10:32 a.m. to 10:57 a.m. for a total of 25 minutes. The sedation and cardiopulmonary monitoring were performed under my direct supervision. I was present for and directed the entire case. COMPLICATIONS: None. DRAINS: None. SPECIMENS: None. IMPLANTS: None. INDICATION: The patient is a 63-year-old male with end-stage renal disease who dialyzes through a left brachiocephalic arteriovenous fistula and has had difficulty with cannulation, as well as with flow during hemodialysis. The patient will undergo a fistulogram with possible angioplasty, stent and/or atherectomy. Risks, benefits and alternative treatment options were discussed with the patient. DESCRIPTION OF PROCEDURE: The patient was taken to the angiography suite, placed supine on the angiography table. The left autogenous brachiocephalic arteriovenous fistula was cannulated, which showed high grade stenosis in the cephalic arch and subclavian vein junction on angiography. The left cephalic and subclavian vein were angioplastied with an 8 x 200 balloon. There was residual stenosis on followup fistulogram. The left cephalic and subclavian vein underwent angioplasty with a 10 x 80 balloon. During inflation of the 10 x 80 balloon a retrograde brachial artery angiogram was performed and showing no intervention was required. A completion fistulogram showed resolution of the stenosis with excellent flow through the cephalic vein into the subclavian vein and centrally with no central venous stenosis noted. Catheters and wires were removed. A suture was placed at the puncture site for hemostasis. Dressings were then applied. The patient tolerated the procedure well. All instrument and needle counts were correct at the end the case. There were no complications. Dr. Villagomez was present for and directed the entire case. The patient was transferred to the [facility] and subsequently discharged in stable condition. The fistula is stable for continued use for hemodialysis access.
== END | disposition home or self-care (01) ==
LOC: M IRPRO 08:08
PROVIDERS: ATTEND Surgery Vascular Surgery
DX: T82.858A Stenosis of other vascular prosthetic devices, implants and grafts, initial encounter (principal); N18.6 End stage renal disease; Z99.2 Dependence on renal dialysis; X58.XXXA Exposure to other specified factors, initial encounter; Y92.9 Unspecified place or not applicable
CPT/HCPCS: 36902; 36907; 99152; 99153; C1725; C1769; C1894; J2250; J3010; Q9967

== ENCOUNTER → 2018-07-20 | Outpatient (REF) | payer MEDICARE, MEDICAID ==
[~2018-07-20] MED LIST changes: -ISOVUE-300 61% 50ML VIAL (Q9967) As Ordered ONE; -LIDOCAINE 2% MDV 20 ML VIAL As Ordered ONE; -MIDAZOLAM INJ 2 MG/2 ML VIAL (J2250) As Ordered ONE; -fentaNYL 100 MCG/2 ML INJECTION (J3010) As Ordered ONE
[2018-07-20 12:34] LABS: HEMOGLOBIN A1c 6.7 %
== END ==
PROVIDERS: ATTEND Internal Medicine
DX: E11.22 Type 2 diabetes mellitus with diabetic chronic kidney disease (principal); N18.9 Chronic kidney disease, unspecified

== ENCOUNTER → 2018-08-04 | Outpatient (CLI) | payer MEDICARE, MEDICAID ==
[~2018-08-04] MED LIST changes: +BUPIVACAINE HCL 0.5% 10 ML VIAL As Ordered ONE; +ISOVUE-300 61% 100ML VIAL (Q9967) As Ordered ONE; +LIDOCAINE 2% MDV 20 ML VIAL As Ordered ONE; +MIDAZOLAM INJ 2 MG/2 ML VIAL (J2250) As Ordered ONE; +diphenhydrAMINE INJ 50MG/ML VIAL (J1200) As Ordered ONE; +fentaNYL 100 MCG/2 ML INJECTION (J3010) As Ordered ONE
--- NOTE | 2018-08-11 12:16 | REPIR ---
DATE OF PROCEDURE: 08/04/2018 ATTENDING SURGEON: Dr. Charline Villagomez ASSISTANTS: Sandra Newsome and Rosemary Sawyer. PREOPERATIVE DIAGNOSIS: End-stage renal disease, dysfunctional left brachiocephalic arteriovenous fistula with confirmation during hemodialysis. POSTOPERATIVE DIAGNOSIS: End-stage renal disease, dysfunctional left brachiocephalic arteriovenous fistula with confirmation during hemodialysis. PROCEDURE: Left brachiocephalic arteriovenous fistulogram, retrograde left brachial artery angiogram, selective left brachial artery catheter placement with angiogram runoff, placement to sheath, one directed toward the arteriovenous anastomosis, one directed towards the venous outflow, left brachial artery and cephalic vein angioplasty 6 x 100 balloon, left cephalic vein and subclavian vein angioplasty with 8 x 4 Conquest and 10 x 8 balloon. INDICATION: The patient is a 63-year-old male with end-stage renal disease who dialyzes through a left brachiocephalic arteriovenous fistula who has had difficulty with pulsatility within the fistula as well as clot formation during cannulation and hemodialysis. The patient undergo a fistulogram with possible angioplasty stent and/or atherectomy. Risks, benefits, alternative treatment options were discussed with the patient. ANESTHESIA: Local sedation with 2 mg Versed, 100 mcg of fentanyl and 7 mL of 2% lidocaine mixed with 0.5% Marcaine, Benadryl 50 mg. FLUOROSCOPY TIME. 3.0 minutes. CONTRAST: 7 mL. SEDATION TIME: From 10:26 a.m. to 10:53 a.m. for a total of 27 minutes. COMPLICATIONS: None. DRAINS: None. SPECIMENS: None. IMPLANTS: None. DESCRIPTION OF PROCEDURE: The patient was taken to the angiography suite, placed supine on the angiography table and then prepped and draped in a standard surgical fashion. The left brachiocephalic arteriovenous fistula was cannulated and a fistulogram performed showing a high-grade stenosis in the cephalic vein, subclavian vein junction. This was angioplastied with a 10 x 8 balloon, which was not able to fully be effaced. An 8 x 4 Conquest balloon was then used, followed by the repeat 10 x 8, which was able to be effaced. A retrograde brachial artery angiogram showed stenosis at the arteriovenous anastomosis. A second cannulation was performed. A catheter was placed in the brachial artery and an angiogram performed confirming the stenosis. The left brachial artery and cephalic vein at the anastomosis were then angioplasty with a 6 x 100 balloon. A completion brachial artery angiogram with runoff showed resolution of all stenoses with good flow into the fistula. Catheters and wires were removed. The sheaths were removed and #2-0 Prolene sutures placed at the puncture site for hemostasis. Dressings were then applied. The patient tolerated the procedure well. All instrument, sponge and needle counts were correct at the end the case. There were no complications. Dr. Villagomez was present for and directed the entire case. The patient was transferred to the holding area then subsequently discharged in stable condition.
== END | disposition home or self-care (01) ==
LOC: M IRPRO 07:19
PROVIDERS: ATTEND Surgery Vascular Surgery
DX: T82.858A Stenosis of other vascular prosthetic devices, implants and grafts, initial encounter (principal); N18.6 End stage renal disease; Z99.2 Dependence on renal dialysis
CPT/HCPCS: 36902; 36907; C1725; C1769; C1894; J1200; J2250; J3010; Q9967

== ENCOUNTER → 2018-11-24 | Outpatient (REF) | payer MEDICARE, MEDICAID ==
[~2018-11-24] MED LIST changes: -BUPIVACAINE HCL 0.5% 10 ML VIAL As Ordered ONE; -ISOVUE-300 61% 100ML VIAL (Q9967) As Ordered ONE; -LIDOCAINE 2% MDV 20 ML VIAL As Ordered ONE; -MIDAZOLAM INJ 2 MG/2 ML VIAL (J2250) As Ordered ONE; -OMEP20CA3 PO; +OMEP20CA4 PO; -diphenhydrAMINE INJ 50MG/ML VIAL (J1200) As Ordered ONE; -fentaNYL 100 MCG/2 ML INJECTION (J3010) As Ordered ONE
[2018-11-24 08:27] LABS: HEMATOCRIT 28.1 % (42.0-52.0); HEMOGLOBIN 8.5 g/dl (13.5-17.5); MEAN CORPUSCULAR HEMOGLOBIN 31.8 pg (27.0-33.0); MEAN CORPUSCULAR HGB CONC 30.2 g/dl (32.0-36.5); MEAN CORPUSCULAR VOLUME 105.2 fl (80.0-96.0); PLATELET COUNT, AUTOMATED 102 10^3/uL (150-450); RED BLOOD COUNT 2.67 10^6/uL (4.30-6.10); WHITE BLOOD COUNT 6.3 10^3/uL (4.0-10.0)
[2018-11-24 08:48] LABS: CALCIUM LEVEL 8.4 MG/DL (8.8-10.2); CREATININE FOR GFR 3.99 MG/DL (0.70-1.30); GLOMERULAR FILTRATION RATE 16.4 (>49); POTASSIUM SERUM 4.4 MEQ/L (3.5-5.1)
== END ==
PROVIDERS: ATTEND Internal Medicine
DX: D64.9 Anemia, unspecified (principal)

== ENCOUNTER → 2019-05-16 | Outpatient (REF) | payer MEDICARE, MEDICAID ==
[~2019-05-16] MED LIST changes: +CHOL100029 PO; +OMEP1CAP73 PO; -OMEP20CA4 PO; -VITAD1000T PO
[2019-05-16 18:09] LABS: HEMOGLOBIN 10.6 g/dl (13.5-17.5); MEAN CORPUSCULAR HEMOGLOBIN 32.7 pg (27.0-33.0); MEAN CORPUSCULAR HGB CONC 31.2 g/dl (32.0-36.5); MEAN CORPUSCULAR VOLUME 104.9 fl (80.0-96.0); PLATELET COUNT, AUTOMATED 110 10^3/uL (150-450); RED BLOOD COUNT 3.24 10^6/uL (4.30-6.10); WHITE BLOOD COUNT 8.3 10^3/uL (4.0-10.0)
[2019-05-16 18:47] LABS: ERYTHROCYTE SEDIMENTATION RATE 64 mm/hr (0-20)
== END ==
PROVIDERS: ATTEND Internal Medicine
DX: N18.6 End stage renal disease (principal)

== ENCOUNTER → 2019-05-26 | Outpatient (REF) | payer MEDICARE, MEDICAID ==
[2019-05-26 10:29] LABS: HEMATOCRIT 31.7 % (42.0-52.0); HEMOGLOBIN 9.8 g/dl (13.5-17.5); MEAN CORPUSCULAR HEMOGLOBIN 32.2 pg (27.0-33.0); MEAN CORPUSCULAR HGB CONC 30.9 g/dl (32.0-36.5); MEAN CORPUSCULAR VOLUME 104.3 fl (80.0-96.0); PLATELET COUNT, AUTOMATED 105 10^3/uL (150-450); RED BLOOD COUNT 3.04 10^6/uL (4.30-6.10)
[2019-05-26 10:55] LABS: CALCIUM LEVEL 8.2 MG/DL (8.8-10.2); CREATININE FOR GFR 5.65 MG/DL (0.70-1.30); GLOMERULAR FILTRATION RATE 10.9 (>49); POTASSIUM SERUM 4.7 MEQ/L (3.5-5.1)
== END ==
PROVIDERS: ATTEND Internal Medicine
DX: D64.9 Anemia, unspecified (principal)

== ENCOUNTER → 2019-08-23 | Outpatient (REF) ==
[~2019-08-23] MED LIST changes: -LISI-672 PO; +LISI30TA4 PO; +PHEN26CR PR; -PREPCRE PR
== END ==
PROVIDERS: ATTEND Internal Medicine
DX: Z03.818 Encounter for observation for suspected exposure to other biological agents ruled out (principal)

== ENCOUNTER → 2020-02-16 | Outpatient (REF) ==
[~2020-02-16] MED LIST changes: -AMLO10TA5 PO; +AMLO1TAB25 PO; +ASPI-546 PO; -ASPI1TAB15 PO
== END ==
PROVIDERS: ATTEND Internal Medicine
DX: Z20.828 Contact with and (suspected) exposure to other viral communicable diseases (principal)

== ENCOUNTER → 2020-02-23 | Outpatient (REF) | payer MEDICARE, MEDICAID ==
[~2020-02-23] MED LIST changes: +HYDR-3910 PO
== END ==
LOC: EDSTATUS 04-03 14:25
PROVIDERS: ATTEND Internal Medicine
DX: Z20.828 Contact with and (suspected) exposure to other viral communicable diseases (principal)

== ENCOUNTER → 2020-02-29 | Outpatient (REF) | payer MEDICARE, MEDICAID | PROVIDERS: ATTEND Internal Medicine | DX: Z20.828 Contact with and (suspected) exposure to other viral communicable diseases (principal) ==

== ENCOUNTER → 2020-03-18 | Outpatient (REF) | payer MEDICARE, MEDICAID ==
[~2020-03-18] MED LIST changes: -HYDR-3910 PO
== END ==
PROVIDERS: ATTEND Internal Medicine
DX: Z20.828 Contact with and (suspected) exposure to other viral communicable diseases (principal)

== ENCOUNTER → 2020-03-22 | Outpatient (REF) | payer MEDICARE, MEDICAID ==
[~2020-03-22] MED LIST changes: +HYDR-3910 PO
== END ==
PROVIDERS: ATTEND Internal Medicine
DX: Z20.828 Contact with and (suspected) exposure to other viral communicable diseases (principal)

== ENCOUNTER → 2020-03-28 | Outpatient (REF) | payer MEDICARE, MEDICAID | PROVIDERS: ATTEND Internal Medicine | DX: Z20.828 Contact with and (suspected) exposure to other viral communicable diseases (principal) ==

== ENCOUNTER → 2020-04-03 | Outpatient (REF) | payer MEDICARE, MEDICAID | PROVIDERS: ATTEND Internal Medicine | DX: Z20.828 Contact with and (suspected) exposure to other viral communicable diseases (principal) ==

== ENCOUNTER → 2020-04-09 | Outpatient (REF) | payer MEDICAID, MEDICARE | PROVIDERS: ATTEND Internal Medicine | DX: Z11.52 Encounter for screening for COVID-19 (principal) ==

== ENCOUNTER → 2020-04-13 | Outpatient (REF) | payer MEDICAID, MEDICARE | PROVIDERS: ATTEND Internal Medicine | DX: Z11.52 Encounter for screening for COVID-19 (principal) ==

== ENCOUNTER → 2020-04-18 | Outpatient (REF) | payer MEDICAID, MEDICARE | PROVIDERS: ATTEND Internal Medicine | DX: Z11.52 Encounter for screening for COVID-19 (principal) ==

== ENCOUNTER → 2020-04-19 | Outpatient (REF) | payer MEDICARE, MEDICAID | PROVIDERS: ATTEND Internal Medicine | DX: R05 Cough (principal) ==

== ENCOUNTER → 2020-04-20 | Outpatient (REF) | payer MEDICARE, MEDICAID ==
[2020-04-20 09:38] LABS: BASO # 0.1 10^3/uL (0.0-0.2); BASO % 0.5 % (0.0-1.0); EOS % 11.1 % (0.0-3.0); HEMATOCRIT 28.1 % (42.0-52.0); HEMOGLOBIN 9.2 g/dl (13.5-17.5); LYMPH # 0.6 10^3/uL (1.5-5.0); LYMPH % 6.7 % (24.0-44.0); MEAN CORPUSCULAR HEMOGLOBIN 33.9 pg (27.0-33.0); MEAN CORPUSCULAR HGB CONC 32.7 g/dl (32.0-36.5); MEAN CORPUSCULAR VOLUME 103.7 fl (80.0-96.0); MONO # 0.6 10^3/uL (0.0-0.8); MONO % 6.7 % (0.0-5.0); NEUTROPHILS # 6.9 10^3/uL (1.5-8.5); NEUTROPHILS % 74.6 % (36.0-66.0); PLATELET COUNT, AUTOMATED 187 10^3/uL (150-450); RED BLOOD COUNT 2.71 10^6/uL (4.30-6.10); WHITE BLOOD COUNT 9.3 10^3/uL (4.0-10.0)
--- NOTE | 2020-04-20 16:13 | REPPI ---
INDICATION: COUGH. COMPARISON: 05/12/2018. TECHNIQUE: SINGLE PORTABLE AP VIEW OF THE CHEST WAS PERFORMED. FINDINGS: There is cardiomegaly unchanged. The mediastinal silhouette is unchanged. Chronic excess show a lizama of interstitial markings in the lower lung zones is unchanged with no definite acute infiltrate. IMPRESSION: Stable cardiomegaly and chronic interstitial changes. No definite acute infiltrate. <Electronically signed by Inder Hollis > 04/20/20 [id number]
== END ==
PROVIDERS: ATTEND Internal Medicine
DX: I51.7 Cardiomegaly (principal); R05 Cough

== ENCOUNTER → 2020-04-25 | Outpatient (REF) | payer MEDICAID, MEDICARE | PROVIDERS: ATTEND Internal Medicine | DX: Z11.52 Encounter for screening for COVID-19 (principal) ==

== ENCOUNTER → 2020-04-27 | Outpatient (CLI) | payer MEDICARE, MEDICAID ==
[~2020-04-27] MED LIST changes: +ISOVUE-300 61% 50ML VIAL As Ordered ONE; +LIDOCAINE 1% MDV 20ML VIAL As Ordered ONE; +MIDAZOLAM INJ 2MG/2ML VIAL (J2250 PER 1MG) As Ordered ONE; +fentaNYL 100 MCG/2 ML INJECTION (J3010) As Ordered ONE
[2020-04-27 16:50] VITALS: BP 156/86
--- NOTE | 2020-04-27 17:05 | ROOPDOC ---
[facility] Report Of Operation Report of Operation DATE OF PROCEDURE: 04/27/20 PREPROCEDURE DIAGNOSES: End-stage renal disease with increased pulsatility and venous pressures left upper extremity brachiocephalic AV fistula POSTPROCEDURE DIAGNOSES: Same PROCEDURE: 1. Ultrasound-guided access left cephalic vein 2. Left upper extremity fistulogram and central venogram 3. Angioplasty left cephalic vein and subclavian vein with 8 x 20 cutting balloon and 9 x 80 [place] balloon 4. Completion venograms SURGEON: Loan Piedra MD ANESTHESIA: Local anesthesia for 1.5 mL lidocaine. Moderate intravenous con scious sedation was administered by Dr. Piedra. The patient was independently monitored by a registered nurse assigned to the Department of radiology using automated blood pressure, EKG, and pulse oximetry. The detailed sedation record is primarily stored in the hospital information system. The following is a brief sedation record: Start time 15:54, stop time 16:16, Versed 0.5 mg IV, fentanyl 25 g IV. CONTRAST: 38 mL Isovue-300 INDICATION FOR PROCEDURE: This is a very pleasant 65-year-old gentleman with end-stage renal disease and increased pulsatility venous pressures in his left upper extremity AV access. Risk benefits alternatives to a fistulogram potential intervention were explained and he was agreeable to proceed. Informed consent was obtained. INTERPRETATION: 1. AV anastomosis is widely patent on ultrasound 2. The fistula is widely patent and slightly aneurysmal in the areas of frequent use, but has a focal stenosis over the upper bicep, approximately 60%, and several focal stenoses in the proximal cephalic vein near the junction with the subclavian vein, both are approximately 70%, and a focal stenosis of 50% at the junction with the subclavian vein. The central veins are otherwise widely patent 3. After angioplasty with an 8 x 20 cutting balloon, there was an improved flow but still 30% residual stenoses in all 4 areas. No extravasation noted. 4. After angioplasty with a 9 x 80 [place] balloon across the cephalic vein into the subclavian vein, there was widely patent inflow through the central system with less than 20% residual stenoses and an excellent thrill and the fistula. No extravasation noted. REPORT OF OPERATION: The patient was brought to the angiographic suite in stable condition. Left upper extremity was prepped and draped in a sterile fashion. A timeout was performed. Local anesthesia was a video poker floorman to the skin and subcutaneous tissue over the cephalic vein and ultrasound was used to examine the AV anastomosis, noted to be widely patent. We then accessed the vein under ultrasound guidance with a microneedle and a wire was passed through this access and a 4 Indian sheath was placed and flushed with saline. We then performed a fistulogram and central venogram, please interpretation above. We then advanced a Glidewire into the central system exchanged the sheath for some Indian sheath. We then used applied cath to exchange the wire for 018 Glidewire advantage and advanced in AP 20 cutting balloon across each area of stenoses. Several inflations were done at each area and following this there was improvement in flow, but still full limiting stenoses. We then exchange the balloon for 9 x 80 [place] balloon and three-minute inflations were performed across these areas, and following this there was widely patent inflow the central system, an excellent thrill and no longer any pulsatility noted in the fistula, no extravasation. This concluded the procedure. A Prolene [id number] suture was placed at the sheath exit site and the skin and the sheath was removed. Pressure was held and sterile dressings were applied in good hemostasis was noted. We then utilized ultrasound to jim the fistula on the upper arm proximal to the areas of frequent access. It is a little deeper in this area, and probably hard to palpate, but they may be able to use a few more centimeters with the markings. We then brought the patient back to recovery in stable condition. He tolerated the procedure and the sedation well. ESTIMATED BLOOD LOSS: Approximately 4 mL. COMPLICATIONS: None. PLAN: It is okay to use the left AV fistula for dialysis. It is okay for the patient to resume his home diet and medications. We appreciate the opportunity to participate in the care of this patient. LOAN PIEDRA MD Apr 27, 2020 17:05
== END ==
LOC: M IRPRO 12:49
PROVIDERS: ATTEND Surgery Vascular Surgery
DX: T82.590A Other mechanical complication of surgically created arteriovenous fistula, initial encounter (principal); N18.6 End stage renal disease; D64.9 Anemia, unspecified; E11.22 Type 2 diabetes mellitus with diabetic chronic kidney disease; E66.9 Obesity, unspecified; E78.00 Pure hypercholesterolemia, unspecified; F20.9 Schizophrenia, unspecified; I12.0 Hypertensive chronic kidney disease with stage 5 chronic kidney disease or end stage renal disease; J44.9 Chronic obstructive pulmonary disease, unspecified; M12.9 Arthropathy, unspecified; R60.0 Localized edema; X58.XXXA Exposure to other specified factors, initial encounter; Z79.82 Long term (current) use of aspirin; Z79.899 Other long term (current) drug therapy; Z87.891 Personal history of nicotine dependence; Z99.2 Dependence on renal dialysis
CPT/HCPCS: 36902; 99152; C1725; C1729; C1769; C1887; C1894; J1644; J2250; J3010; Q9967

== ENCOUNTER → 2020-05-02 | Outpatient (REF) | payer MEDICARE, MEDICAID ==
[~2020-05-02] MED LIST changes: -ISOVUE-300 61% 50ML VIAL As Ordered ONE; -LIDOCAINE 1% MDV 20ML VIAL As Ordered ONE; -MIDAZOLAM INJ 2MG/2ML VIAL (J2250 PER 1MG) As Ordered ONE; -fentaNYL 100 MCG/2 ML INJECTION (J3010) As Ordered ONE
== END ==
PROVIDERS: ATTEND Internal Medicine
DX: Z20.822 Contact with and (suspected) exposure to COVID-19 (principal)

== ENCOUNTER → 2020-05-09 | Outpatient (REF) | payer MEDICARE, MEDICAID | PROVIDERS: ATTEND Internal Medicine | DX: Z20.822 Contact with and (suspected) exposure to COVID-19 (principal) ==

== ENCOUNTER → 2020-05-16 | Outpatient (REF) | payer MEDICARE, MEDICAID | PROVIDERS: ATTEND Internal Medicine | DX: Z20.822 Contact with and (suspected) exposure to COVID-19 (principal) ==

== ENCOUNTER → 2020-05-23 | Outpatient (REF) | payer MEDICARE, MEDICAID | PROVIDERS: ATTEND Internal Medicine | DX: Z20.822 Contact with and (suspected) exposure to COVID-19 (principal) ==

== ENCOUNTER → 2020-05-30 | Outpatient (REF) | payer MEDICARE, MEDICAID ==
[~2020-05-30] MED LIST changes: +ASPI-569 PO; -ASPI81TAEC PO
== END ==
PROVIDERS: ATTEND Internal Medicine
DX: Z20.822 Contact with and (suspected) exposure to COVID-19 (principal)

== ENCOUNTER → 2020-06-06 | Outpatient (REF) | payer MEDICARE, MEDICAID | PROVIDERS: ATTEND Internal Medicine | DX: Z20.822 Contact with and (suspected) exposure to COVID-19 (principal) ==

== ENCOUNTER → 2020-06-13 | Outpatient (REF) | payer MEDICARE, MEDICAID | PROVIDERS: ATTEND Internal Medicine | DX: Z11.52 Encounter for screening for COVID-19 (principal) ==

== ENCOUNTER → 2020-07-06 | Outpatient (REF) | payer MEDICARE, MEDICAID ==
[2020-07-06 21:38] LABS: INFLUENZA A AMPLIFICATION NEGATIVE (NEGATIVE); INFLUENZA B AMPLIFICATION NEGATIVE (NEGATIVE)
== END ==
PROVIDERS: ATTEND Internal Medicine
DX: Z11.59 Encounter for screening for other viral diseases (principal)

== ENCOUNTER → 2020-07-17 | Outpatient (REF) | payer MEDICARE, MEDICAID | PROVIDERS: ATTEND Internal Medicine | DX: Z20.822 Contact with and (suspected) exposure to COVID-19 (principal) ==

== ENCOUNTER → 2020-07-24 | Outpatient (REF) | payer MEDICARE, MEDICAID ==
[2020-07-24 13:55] LABS: HEMOGLOBIN A1c 6.8 %
== END ==
PROVIDERS: ATTEND Internal Medicine
DX: E11.9 Type 2 diabetes mellitus without complications (principal); Z20.822 Contact with and (suspected) exposure to COVID-19
CPT/HCPCS: 36415; 83036; U0003

== ENCOUNTER → 2020-08-10 | Outpatient (CLI) | payer MEDICARE, MEDICAID ==
--- NOTE | 2020-08-10 16:05 | ROOPDOC ---
[facility] Report Of Operation Report of Operation DATE OF PROCEDURE: 08/10/20 PREPROCEDURE DIAGNOSES: End-stage renal disease with poorly functioning AV fistula POSTPROCEDURE DIAGNOSES: Same PROCEDURE: 1. Ultrasound-guided access left brachiocephalic fistula 2. Left upper extremity fistulogram and central venogram 3. Angioplasty cephalic vein with 8 x 200 and 9 x 80 [place] balloons 4. Completion venogram SURGEON: Mildred Piedra MD ANESTHESIA: Local anesthesia 2 mL lidocaine. Moderate intravenous conscious sedation was a mail distributor by Dr. Piedra. The patient was independently monitored by registered nurse using the department of radiology using automated blood pressure, EKG, and pulse oximetry. The detailed sedation records primally started in the hospital information system. The following is a brief sedation record: Start time 15:44, stop time 15:59, Versed 0.5 mg IV, fentanyl 25 g IV. INDICATION FOR PROCEDURE: This is a very pleasant 65-year-old patient with end-stage renal disease currently having increased venous pressures with his left brachiocephalic AV fistula. Risks benefits alternatives to a fistulogram potential intervention were explained and patient is agreeable to proceed. Informed consent was obtained. INTERPRETATION: 1. The AV anastomosis widely patent on ultrasound, please see saved images. 2. The cephalic vein is mildly aneurysmal near the AV anastomosis in the areas of frequent access, and narrows to about 8 or 9 mm between the aneurysms, but this is not stenotic. More proximally, the vein narrows to about 8 mm over the bicep and then there are several areas of focal stenosis at the shoulder and towards the junction with the subclavian vein. At the junction with the subclavian vein, there is a 70% stenosis. There is no stenosis in the subclavian vein or central vein disease are widely patent with rapid flow back to the heart. 3. After angioplasty of the proximal cephalic vein with an 8 x 200 [place] balloon for three-minute inflations, there is improvement in flow but still some residual stenosis at the junction with the subclavian vein and over the shoulder. We therefore upsize the balloon to a 9 x 80 balloon and following three-minute angioplasty with this in each of the areas, there is widely patent flow through to the central system. Less than 20% residual stenosis remains in the cephalic vein. No extravasation noted. There is an excellent thrill and the fistula. REPORT OF OPERATION: The patient was brought to the angiographic suite in stable condition. His left upper extremity was prepped and draped in a sterile fashion. A timeout was performed. Local anesthesia was mail distributor to skin and subcutaneous tissue over the cephalic vein. Ultrasound was used to examine the AV anastomosis and it was noted to be widely patent. We then asked to assist the cephalic vein near the AV anastomosis and a wire was passed through this access needle was removed and a 4 Indonesian sheath was placed and flushed with saline. A fistulogram and central venogram were performed, placing interpretation above. Glidewire was advanced into the central system under fluoroscopic guidance. The sheath was exchanged for 6 Indonesian sheath and flushed with saline. In July 06 100 [place] balloon was advanced across the proximal cephalic vein to the junction with the subclavian vein. A three-minute inflation was performed and following this there was improvement but still some residual stenosis. The balloon was upsized to a 9 x 80 [place] balloon and three-minute inflations were performed proximally across the junction with the subclavian vein and a little bit more distally at the shoulder for three-minute inflations each. Following this, there is widely patent flow with no significant residual stenosis in no extravasation. There was excellent thrill fistula. This concluded the procedure. A [id number] Prolene suture was placed at the sheath site and secured with the sheath was removed. Good hemostasis was noted and sterile dressings were applied. The patient was taken to recovery in stable condition and monitored for 30 minutes postprocedure to make sure he was okay after the sedation and he did very well and was discharged in stable condition. ESTIMATED BLOOD LOSS: Approximately 5 mL. COMPLICATIONS: None Plan: Okay to resume preprocedure diet and medications. Okay to use fistula for dialysis. We appreciate the opportunity to participate in the care of this patient. MILDRED PIEDRA MD August 10, 2020 16:05
[2020-08-10 16:28] VITALS: BP 189/84
== END ==
LOC: M IRPRO 12:57
PROVIDERS: ATTEND Surgery Vascular Surgery
DX: T82.590A Other mechanical complication of surgically created arteriovenous fistula, initial encounter (principal); N18.6 End stage renal disease; X58.XXXA Exposure to other specified factors, initial encounter
CPT/HCPCS: 36902; 99152; C1725; C1769; C1894

== ENCOUNTER → 2020-11-21 | Outpatient (REF) | payer MEDICARE, MEDICAID ==
[2020-11-21 10:40] LABS: HEMATOCRIT 30.7 % (42.0-52.0); HEMOGLOBIN 9.4 g/dl (13.5-17.5); MEAN CORPUSCULAR HEMOGLOBIN 32.2 pg (27.0-33.0); MEAN CORPUSCULAR HGB CONC 30.6 g/dl (32.0-36.5); MEAN CORPUSCULAR VOLUME 105.1 fl (80.0-96.0); PLATELET COUNT, AUTOMATED 110 10^3/uL (150-450); RED BLOOD COUNT 2.92 10^6/uL (4.30-6.10); WHITE BLOOD COUNT 8.9 10^3/uL (4.0-10.0)
== END ==
PROVIDERS: ATTEND Internal Medicine
DX: R53.83 Other fatigue (principal)

== ENCOUNTER → 2021-01-02 | Outpatient (CLI) | payer MEDICARE, MEDICAID ==
--- NOTE | 2021-01-03 08:37 | REP ---
INDICATION: ESRD. Left brachial artery to cephalic vein arteriovenous fistula. COMPARISON: None. TECHNIQUE: Left upper extremity duplex venous and arterial ultrasound. FINDINGS: Patient has a patent fistula. The brachial artery measures 6 mm in diameter 2 cm proximal to the fistula and is 1.9 cm from the overlying skin. Peak systolic flow velocity in this segment of the brachial artery is 282 centimeters/second flow volume calculated at 1.776 liters/minute. At the anastomosis the luminal diameter is 0.47 cm peak systolic flow velocity 512 centimeters/second. Velocities are somewhat elevated but no narrowing or significant plaquing is seen. The cephalic vein is the outflow vessel and this is dilated for approximately 3 cm length from the anastomosis to a 2.7 cm AP diameter. 3 cm from the anastomosis its diameter is 1.4 cm, 1 cm from the skin. Velocity in the outflow vessel is recorded at 60.5 centimeters/second and calculated flow volume is 2.807 liters/minute. 5 cm from the anastomosis the vein diameter is 1.0 cm and depth from the skin is 1.7 cm. Velocity 64 centimeters/second and flow volume 1.181 liters/minute. Biphasic arterial flow is seen in the distal radial artery with peak systolic velocity recorded at 28.4 centimeters/second. Biphasic flow is recorded in the distal ulnar artery, PSV 43.3 centimeters/seconds. There is a small amount of fluid surrounding the proximal cephalic vein in the upper arm where the patient has a visible bruise. No evidence of thrombus. IMPRESSION: Left upper extremity arteriovenous fistula Doppler evaluation and sonographic features as above. <Electronically signed by Dm Huynh > 01/03/21 [id number]
== END ==
LOC: M RAD 15:25
PROVIDERS: ATTEND Surgery Vascular Surgery
DX: N18.6 End stage renal disease (principal)

== ENCOUNTER → 2021-02-08 | Outpatient (REF) | payer MEDICARE, MEDICAID | PROVIDERS: ATTEND Internal Medicine | DX: R05.9 Cough, unspecified (principal) ==

== ENCOUNTER → 2021-02-08 | Outpatient (CLI) | payer MEDICARE, MEDICAID ==
--- NOTE | 2021-02-08 16:42 | REP ---
INDICATION: MID BACK PAIN /COUGH. COMPARISON: 08/03/2020 TECHNIQUE: The technologist performing the examination has typed into the power jacket "best images possible" FINDINGS: Attempted PA and lateral views. There is marked artifact obscuring all detail on the frontal view. I cannot rule out an abnormal opacity particularly in the right lower lobe. There does appear to be cardiomegaly. The right CP angle has not been included on the radiograph. The lateral view suggests increases digital markings. IMPRESSION: Acute cardiopulmonary disease particularly in the right lung field cannot be ruled out. The examination is grossly limited. Repeat is recommended. <Electronically signed by Tristan Wong > 02/08/21 0145
--- NOTE | 2021-02-08 16:47 | REP ---
INDICATION: MID BACK PAIN /COUGH. COMPARISON: None TECHNIQUE: The technologist performing the examination has placed in the patient's synapse power jacket "BEST IMAGES POSSIBLE DUE TO PATIENT'S SIZE, UNABLE TO LAY SUPINE/STAND, IMAGES DONE SITTING IN CHAIR" FINDINGS: The AP view is nondiagnostic. Only the 1st 4 thoracic vertebral bodies were imaged. The lateral view shows anterior lipping and mild disc space narrowing throughout, however, the posterior aspects of the vertebral bodies involving all mid and lower thoracic levels is obscured by chair artifact. IMPRESSION: Acute abnormality cannot be ruled out. Findings and limitations as described above. CT is recommended. <Electronically signed by Tristan Wong > 02/08/21 [id number]
== END ==
LOC: M RAD 14:18
PROVIDERS: ATTEND Internal Medicine
DX: R05.9 Cough, unspecified (principal); M54.6 Pain in thoracic spine

== ENCOUNTER → 2021-02-18 | Outpatient (REF) | payer MEDICARE, MEDICAID ==
[~2021-02-18] MED LIST changes: +ACET-683 PO; +ARTIDRO OU; +CALC667T2 PO; +FLUTISP; +HUMA100I5 SC; +LIDO1CRE42 TOP; +SENN-80 PO; +TRAM50TA2 PO
[2021-02-18 18:03] LABS: BASO % 0.5 % (0.0-1.0); EOS # 0.9 10^3/uL (0.0-0.5); EOS % 10.5 % (0.0-3.0); HEMATOCRIT 27.7 % (42.0-52.0); HEMOGLOBIN 8.5 g/dl (13.5-17.5); LYMPH # 0.6 10^3/uL (1.5-5.0); LYMPH % 7.3 % (24.0-44.0); MEAN CORPUSCULAR HEMOGLOBIN 32.9 pg (27.0-33.0); MEAN CORPUSCULAR HGB CONC 30.7 g/dl (32.0-36.5); MEAN CORPUSCULAR VOLUME 107.4 fl (80.0-96.0); MONO # 1.1 10^3/uL (0.0-0.8); MONO % 12.3 % (2.0-8.0); NEUTROPHILS % 68.9 % (36.0-66.0); PLATELET COUNT, AUTOMATED 134 10^3/uL (150-450); RED BLOOD COUNT 2.58 10^6/uL (4.30-6.10); WHITE BLOOD COUNT 8.7 10^3/uL (4.0-10.0)
--- NOTE | 2021-02-25 13:08 | IPN ---
PROGRESS NOTE DATE: 02/25/2021 SUBJECTIVE: Mr. Valadez is seen this morning at his bedside during hemodialysis. Nursing staff reports difficulty with the needle placement and his left arm AV fistula. The patient continues to have on and off atypical chest pain. He denies any nausea or vomiting. He has no fever or chills. OBJECTIVE: On physical examination, temperature is 97.8 degrees Fahrenheit, heart is 72 per minute and respiratory rate 20 per minute. Blood pressure 114/70 mmHg and oxygen saturation 91% on 2 liters oxygen. His head is atraumatic. Neck supple and jugular venous distention (JVD) difficult to be assessed, but not significantly elevated. Heart sounds are irregular in rhythm and lungs with diminished breath sounds due to morbid obesity. Abdomen is also obese and nontender. Bowel sounds are present. Extremities without any cyanosis or clubbing. Left arm AV fistula is patent, but seems to have at least partial thrombosis. He has no peripheral edema at present. Neurologically, he has no focal deficit. LABORATORY DATA: Today's labs show WBC 9.2, hemoglobin 8.3 and hematocrit 28.1. Sodium 135, potassium 5.0, BUN 59 and creatinine 6.6. Calcium is 0.1 and glucose 94. PROBLEMS: 1. End-stage renal disease. The patient is being dialyzed today and he will complete his 3 1/2 hour dialysis. Nursing staff was able to get the needles in his fistula with some difficulty. I think that he would probably need a fistulogram and possible angioplasty. Vascular surgery evaluation will be requested. 2. Congestive heart failure. The patient has chronic noncompliance with dietary and fluid restriction. In the hospital, his volume status seems reasonably well compensated, though as outpatient he usually gains between 5 and 7 kg between dialysis treatments. We are trying to remove about 3 liters today as tolerated. 3. Atrial fibrillation. The patient has been on low-dose beta herbert now and Eliquis has been started for new onset atrial fibrillation. His echocardiogram did show ejection fraction of 45%. At this point, I do not feel that he will be able to tolerate any higher dose of beta herbert, FELICITAS inhibitor or angiotensin receptor herbert due to recurrent hypotension during dialysis. I agree with Eliquis and low-dose carvedilol. His ventricular rate is well controlled. 4. Anemia. He does have anemia of chronic kidney disease and will get him Aranesp 200 mcg with dialysis today.
== END ==
PROVIDERS: ATTEND Internal Medicine
DX: R05.9 Cough, unspecified (principal); Z79.899 Other long term (current) drug therapy

== ENCOUNTER → 2021-02-18 | Outpatient (CLI) | payer MEDICARE, MEDICAID ==
[~2021-02-18] MED LIST changes: -ACET-683 PO; -ARTIDRO OU; -CALC667T2 PO; -FLUTISP; -HUMA100I5 SC; -LIDO1CRE42 TOP; -SENN-80 PO; -TRAM50TA2 PO
--- NOTE | 2021-02-18 15:15 | REP ---
INDICATION: PORTABLE CXR, COUGH COMPARISON: 02/08/2021 TECHNIQUE: Portable AP view of the chest FINDINGS: Cardiomegaly and evidence for pulmonary vascular congestion/interstitial edema. No discrete focal consolidation or effusion. No pneumothorax. IMPRESSION: Cardiomegaly and findings to suggest pulmonary vascular congestion/interstitial edema. <Electronically signed by Ezra Hartman > 02/18/21 [id number]
== END ==
PROVIDERS: ATTEND Internal Medicine
DX: R05.9 Cough, unspecified (principal)

== ENCOUNTER 2021-02-23 14:55 | Observation (INO) | payer MEDICARE, MEDICAID ==
[~2021-02-23] VITALS: Ht 167.6 cm; Wt 159.8 kg
[2021-02-23] MEDS ORDERED: DEXTROSE 50% 50 ML SYRINGE IV STA (15:07)
[2021-02-23] MEDS ORDERED: DEXTROSE 50% 50 ML SYRINGE As Ordered ONE (15:08)
[2021-02-23 15:38] LABS: BASO % 0.5 % (0.0-1.0); EOS # 1.1 10^3/uL (0.0-0.5); EOS % 13.5 % (0.0-3.0); HEMOGLOBIN 8.5 g/dl (13.5-17.5); LYMPH # 0.7 10^3/uL (1.5-5.0); LYMPH % 9.5 % (24.0-44.0); MEAN CORPUSCULAR HEMOGLOBIN 32.7 pg (27.0-33.0); MEAN CORPUSCULAR HGB CONC 29.3 g/dl (32.0-36.5); MEAN CORPUSCULAR VOLUME 111.5 fl (80.0-96.0); MONO # 0.9 10^3/uL (0.0-0.8); MONO % 11.7 % (2.0-8.0); NEUTROPHILS % 64.3 % (36.0-66.0); PLATELET COUNT, AUTOMATED 107 10^3/uL (150-450); WHITE BLOOD COUNT 7.8 10^3/uL (4.0-10.0)
[2021-02-23 15:59] LABS: CALCIUM LEVEL 8.2 MG/DL (8.8-10.2); CREATININE FOR GFR 3.64 MG/DL (0.70-1.30); POTASSIUM SERUM 3.7 MEQ/L (3.5-5.1)
[2021-02-23 16:04] LABS: CK-MB VALUE MASS 2.5 NG/ML (<3.6); MB/CK RELATIVE INDEX 1.46 (< OR =4); TROPONIN I 0.02 NG/ML (< 0.10)
[2021-02-23] MEDS ORDERED: ISOVUE-370 76% 100ML VIAL As Ordered ONE (16:32)
[2021-02-23] MEDS ORDERED: GLUCOSE 4GM CHEW TABLET PO PRN (18:00)
[2021-02-23] MEDS ORDERED: GLUCAGON INJ 1MG VIAL SC PRN (18:00)
[2021-02-23] MEDS ORDERED: DEXTROSE 50% 50 ML SYRINGE IV PRN (18:00)
[2021-02-23] MEDS ORDERED: ASPIRIN 325 MG TAB PO ONE (18:25)
[2021-02-23] MEDS ORDERED: SENN-80 PO (19:07)
[2021-02-23] MEDS ORDERED: ARTIDRO OU (19:07)
[2021-02-23] MEDS ORDERED: CALC667T2 PO (19:07)
[2021-02-23] MEDS ORDERED: HUMA100I5 SC (19:07)
[2021-02-23] MEDS ORDERED: VENL150C43 PO (19:07)
[2021-02-23] MEDS ORDERED: FLUTISP (19:07)
[2021-02-23] MEDS ORDERED: TRAM50TA2 PO (19:07)
[2021-02-23] MEDS ORDERED: ACET-683 PO (19:07)
[2021-02-23] MEDS ORDERED: LIDO1CRE42 TOP (19:07)
[2021-02-23] MEDS ORDERED: HOME MED LIST COMPLETE! XX SCH (19:10)
[2021-02-23] MEDS ORDERED: EMLA CREAM 5GM TUBE (LIDOCAINE/PRILOCAINE) TOP PRN (19:40)
[2021-02-23 20:50] VITALS: BP 122/74
[2021-02-23] MEDS: HumaLOG INSULIN (NovoLOG) PER UNIT SC SCH (21:00)
[2021-02-23] MEDS ORDERED: **hydrALAZINE HCL** 25 MG TAB PO SCH (21:00)
[2021-02-23] MEDS ORDERED: HEPARIN SOD (PORCINE) 5000UNITS/ML 1ML VIAL/SYRINGE SC SCH (22:00)
[2021-02-23 23:32] LABS: INR 1.18; PROTHROMBIN TIME 15.4 SECONDS (12.7-14.5)
[2021-02-23] MEDS: ACETAMINOPHEN 500 MG TAB PO SCH (23:58)
[2021-02-23] MEDS: traMADol 50 MG TAB PO PRN (23:58)
[2021-02-23] MEDS: SENOKOT S TAB PO SCH (23:58)
[2021-02-23] MEDS: FAMOTIDINE 20 MG TAB PO SCH (23:59)
[2021-02-24] MEDS: METOPROLOL TART 25 MG TABLET PO SCH ×2 (00:14→09:00)
[2021-02-24] MEDS: OXcarbazepine 300 MG TAB PO SCH ×3 (00:17→22:07)
[2021-02-24] MEDS: APIXABAN 5 MG TAB (ELIQUIS) PO SCH ×3 (00:17→22:07)
[2021-02-24] MEDS: PALIPERIDONE 3 MG ER TAB (INVEGA) PO SCH ×2 (00:17→17:50)
[2021-02-24] MEDS: NYSTATIN 100,000 UNITS/GM TOPICAL PWD 15 GM TOP SCH ×3 (01:12→22:08)
[2021-02-24] MEDS: guaiFENesin ER 600 MG TAB PO SCH ×3 (01:23→22:07)
[2021-02-24] MEDS: LIDOCAINE 5% (LIDODERM) PATCH TD SCH ×2 (01:23→22:07)
[2021-02-24] MEDS: hydrOXYzine 25 MG TAB PO PRN ×2 (01:23→16:55)
[2021-02-24] MEDS: ALBUTEROL SULFATE 2.5 MG/0.5 ML INH NEB SOLN NEB PRN ×2 (02:08→19:41)
[2021-02-24 03:35] VITALS: BP 91/51
[2021-02-24 06:00] VITALS: BP 118/72
[2021-02-24] MEDS: HumaLOG INSULIN (NovoLOG) PER UNIT SC SCH ×4 (07:30→22:06)
[2021-02-24] MEDS: ACETAMINOPHEN 500 MG TAB PO SCH ×2 (08:47→22:09)
[2021-02-24] MEDS ORDERED: ASPIRIN 325 MG TAB PO SCH (09:00)
[2021-02-24] MEDS ORDERED: TAMSULOSIN 0.4 MG CAP PO SCH (09:00)
[2021-02-24] MEDS ORDERED: **hydrALAZINE HCL** 25 MG TAB PO SCH (09:00)
[2021-02-24] MEDS: SENOKOT S TAB PO SCH ×2 (09:07→22:07)
[2021-02-24] MEDS: TAMSULOSIN 0.4 MG CAP PO SCH (09:07)
[2021-02-24] MEDS: VENLAFAXINE **XR** 37.5 MG CAPSULE PO SCH (09:15)
[2021-02-24] MEDS: FLUTICASONE PROP 0.05% NASAL SPRAY 16 GM (FLONASE) SCH (09:18)
[2021-02-24] MEDS: ASPIRIN 81 MG CHEW TABLET PO SCH (09:19)
[2021-02-24] MEDS: **NOTE PATIENT COMMENT** MISC XX SCH (09:19)
[2021-02-24 09:55] LABS: HEMATOCRIT 27.7 % (42.0-52.0); HEMOGLOBIN 8.3 g/dl (13.5-17.5); MEAN CORPUSCULAR HEMOGLOBIN 33.6 pg (27.0-33.0); MEAN CORPUSCULAR VOLUME 112.1 fl (80.0-96.0); PLATELET COUNT, AUTOMATED 105 10^3/uL (150-450); RED BLOOD COUNT 2.47 10^6/uL (4.30-6.10); WHITE BLOOD COUNT 8.5 10^3/uL (4.0-10.0)
[2021-02-24 10:31] LABS: ALBUMIN 2.6 GM/DL (3.2-5.2); BILIRUBIN,TOTAL 0.5 MG/DL (0.2-1.0); CALCIUM LEVEL 8.3 MG/DL (8.8-10.2); CREATININE FOR GFR 5.21 MG/DL (0.70-1.30); GLOMERULAR FILTRATION RATE 11.9 (>49); MAGNESIUM LEVEL 2.1 MG/DL (1.8-2.4); PHOSPHORUS LEVEL 2.7 MG/DL (2.5-4.9); POTASSIUM SERUM 4.8 MEQ/L (3.5-5.1)
[2021-02-24 11:32] LABS: PERCENT SATURATION 30.8 % (19.7-50.0)
[2021-02-24 12:02] LABS: HEMOGLOBIN A1c 6.4 %
[2021-02-24] MEDS: traMADol 50 MG TAB PO PRN (12:22)
[2021-02-24 14:00] VITALS: BP 119/70
[2021-02-24] MEDS ORDERED: carisoprodoL 350 MG TAB PO PRN (21:55)
[2021-02-24 22:00] VITALS: BP 115/74
[2021-02-24] MEDS: FAMOTIDINE 20 MG TAB PO SCH (22:07)
[2021-02-24] MEDS: RAMELTEON 8 MG TAB (ROZEREM) PO PRN (22:07)
[2021-02-24] MEDS: ANALGESIC BALM CRM 3OZ TOP SCH (22:08)
[2021-02-25] MEDS: hydrOXYzine 25 MG TAB PO PRN ×2 (01:26→20:34)
[2021-02-25] MEDS: traMADol 50 MG TAB PO PRN ×2 (01:27→15:12)
[2021-02-25] MEDS: ALBUTEROL SULFATE 2.5 MG/0.5 ML INH NEB SOLN NEB PRN ×2 (03:59→20:46)
[2021-02-25 06:00] VITALS: BP 114/70
[2021-02-25 06:16] LABS: BASO # 0.1 10^3/uL (0.0-0.2); BASO % 0.5 % (0.0-1.0); EOS % 10.8 % (0.0-3.0); HEMATOCRIT 28.1 % (42.0-52.0); HEMOGLOBIN 8.3 g/dl (13.5-17.5); LYMPH # 0.8 10^3/uL (1.5-5.0); LYMPH % 8.8 % (24.0-44.0); MEAN CORPUSCULAR HEMOGLOBIN 33.1 pg (27.0-33.0); MEAN CORPUSCULAR HGB CONC 29.5 g/dl (32.0-36.5); MONO % 10.9 % (2.0-8.0); NEUTROPHILS # 6.3 10^3/uL (1.5-8.5); NEUTROPHILS % 68.6 % (36.0-66.0); PLATELET COUNT, AUTOMATED 100 10^3/uL (150-450); RED BLOOD COUNT 2.51 10^6/uL (4.30-6.10); WHITE BLOOD COUNT 9.2 10^3/uL (4.0-10.0)
[2021-02-25 06:50] LABS: CALCIUM LEVEL 8.1 MG/DL (8.8-10.2); CREATININE FOR GFR 6.6 MG/DL (0.70-1.30); GLOMERULAR FILTRATION RATE 9.1 (>49)
[2021-02-25] MEDS: HumaLOG INSULIN (NovoLOG) PER UNIT SC SCH ×4 (07:30→21:00)
[2021-02-25] MEDS ORDERED: LIDOCAINE 1% SDV 5ML VIAL SC PRN (07:50)
[2021-02-25] MEDS ORDERED: SODIUM CHLORIDE 0.9% 1000ML IV PRN (07:50)
[2021-02-25] MEDS: VENLAFAXINE **XR** 37.5 MG CAPSULE PO SCH (08:03)
[2021-02-25] MEDS: APIXABAN 5 MG TAB (ELIQUIS) PO SCH ×2 (08:04→20:31)
[2021-02-25] MEDS: TAMSULOSIN 0.4 MG CAP PO SCH (08:04)
[2021-02-25] MEDS: SENOKOT S TAB PO SCH ×2 (08:04→20:31)
[2021-02-25] MEDS: ACETAMINOPHEN 500 MG TAB PO SCH ×2 (08:04→20:32)
[2021-02-25] MEDS: ASPIRIN 81 MG CHEW TABLET PO SCH (08:04)
[2021-02-25] MEDS: guaiFENesin ER 600 MG TAB PO SCH ×2 (08:04→20:31)
[2021-02-25] MEDS ORDERED: DARBEPOETIN 200MCG/0.4ML *DIALYSIS* SYRINGE (J0882 PER 1MCG) IV SCH (08:05)
[2021-02-25] MEDS: ANALGESIC BALM CRM 3OZ TOP SCH ×2 (08:08→20:32)
[2021-02-25] MEDS: NYSTATIN 100,000 UNITS/GM TOPICAL PWD 15 GM TOP SCH ×2 (08:08→20:32)
[2021-02-25] MEDS: FLUTICASONE PROP 0.05% NASAL SPRAY 16 GM (FLONASE) SCH (08:08)
[2021-02-25] MEDS: CARVedilol 3.125 MG TAB PO SCH (08:14)
[2021-02-25] MEDS: OXcarbazepine 300 MG TAB PO SCH ×2 (08:46→20:31)
[2021-02-25] MEDS: **NOTE PATIENT COMMENT** MISC XX SCH (08:46)
[2021-02-25] MEDS ORDERED: ISOSORBIDE MON. (IMDUR) 30 MG XR TAB PO SCH (09:00)
[2021-02-25] MEDS ORDERED: amLODIPine 5 MG TAB PO SCH (09:00)
[2021-02-25] MEDS ORDERED: METOPROLOL TART 12.5 MG PER 1/2 TAB PO SCH (09:00)
[2021-02-25 10:31] LABS: FOLATE 10.2 NG/ML (>5.4)
[2021-02-25 14:40] VITALS: BP 122/76
[2021-02-25] MEDS: PALIPERIDONE 3 MG ER TAB (INVEGA) PO SCH (18:09)
[2021-02-25] MEDS: FAMOTIDINE 20 MG TAB PO SCH (20:31)
[2021-02-25] MEDS: LIDOCAINE 5% (LIDODERM) PATCH TD SCH (20:33)
[2021-02-25 22:00] VITALS: BP 103/66
[2021-02-26] MEDS: RAMELTEON 8 MG TAB (ROZEREM) PO PRN ×2 (01:12→21:49)
[2021-02-26] MEDS: traMADol 50 MG TAB PO PRN ×2 (01:14→23:06)
[2021-02-26 06:00] VITALS: BP 108/68
[2021-02-26 07:12] LABS: BASO % 0.5 % (0.0-1.0); EOS # 1.2 10^3/uL (0.0-0.5); EOS % 13.3 % (0.0-3.0); HEMOGLOBIN 8.9 g/dl (13.5-17.5); LYMPH # 0.8 10^3/uL (1.5-5.0); LYMPH % 8.9 % (24.0-44.0); MEAN CORPUSCULAR HEMOGLOBIN 33.3 pg (27.0-33.0); MEAN CORPUSCULAR HGB CONC 29.7 g/dl (32.0-36.5); MEAN CORPUSCULAR VOLUME 112.4 fl (80.0-96.0); MONO # 0.7 10^3/uL (0.0-0.8); MONO % 8.2 % (2.0-8.0); NEUTROPHILS % 68.8 % (36.0-66.0); PLATELET COUNT, AUTOMATED 100 10^3/uL (150-450); RED BLOOD COUNT 2.67 10^6/uL (4.30-6.10); WHITE BLOOD COUNT 8.7 10^3/uL (4.0-10.0)
[2021-02-26 07:43] LABS: CALCIUM LEVEL 8.3 MG/DL (8.8-10.2); CREATININE FOR GFR 5.42 MG/DL (0.70-1.30); GLOMERULAR FILTRATION RATE 11.4 (>49); MAGNESIUM LEVEL 2.3 MG/DL (1.8-2.4); PHOSPHORUS LEVEL 3.7 MG/DL (2.5-4.9); POTASSIUM SERUM 4.9 MEQ/L (3.5-5.1)
[2021-02-26 09:00] VITALS: BP 101/56
[2021-02-26] MEDS: CARVedilol 3.125 MG TAB PO SCH (09:00)
[2021-02-26] MEDS: ASPIRIN 81 MG CHEW TABLET PO SCH (09:08)
[2021-02-26] MEDS: APIXABAN 5 MG TAB (ELIQUIS) PO SCH ×2 (09:08→21:45)
[2021-02-26] MEDS: guaiFENesin ER 600 MG TAB PO SCH ×2 (09:08→21:45)
[2021-02-26] MEDS: TAMSULOSIN 0.4 MG CAP PO SCH (09:08)
[2021-02-26] MEDS: OXcarbazepine 300 MG TAB PO SCH ×2 (09:08→21:44)
[2021-02-26] MEDS: SENOKOT S TAB PO SCH ×2 (09:08→21:44)
[2021-02-26] MEDS: VENLAFAXINE **XR** 37.5 MG CAPSULE PO SCH (09:08)
[2021-02-26] MEDS: FLUTICASONE PROP 0.05% NASAL SPRAY 16 GM (FLONASE) SCH (09:09)
[2021-02-26] MEDS: CYANOCOBALAMIN 500 MCG TAB PO SCH (09:09)
[2021-02-26] MEDS: ANALGESIC BALM CRM 3OZ TOP SCH ×2 (09:09→21:44)
[2021-02-26] MEDS: NYSTATIN 100,000 UNITS/GM TOPICAL PWD 15 GM TOP SCH ×2 (09:09→21:43)
[2021-02-26] MEDS: ACETAMINOPHEN 500 MG TAB PO SCH ×2 (09:11→21:45)
[2021-02-26] MEDS: **NOTE PATIENT COMMENT** MISC XX SCH (09:11)
[2021-02-26] MEDS: HumaLOG INSULIN (NovoLOG) PER UNIT SC SCH ×4 (09:13→21:00)
[2021-02-26 14:00] VITALS: BP 115/70
[2021-02-26] MEDS: PALIPERIDONE 3 MG ER TAB (INVEGA) PO SCH (18:45)
[2021-02-26 21:06] VITALS: BP 134/85
[2021-02-26] MEDS: LIDOCAINE 5% (LIDODERM) PATCH TD SCH (21:43)
[2021-02-26] MEDS: FAMOTIDINE 20 MG TAB PO SCH (21:45)
[2021-02-26] MEDS: hydrOXYzine 25 MG TAB PO PRN (21:49)
[2021-02-26] MEDS: ALBUTEROL SULFATE 2.5 MG/0.5 ML INH NEB SOLN NEB PRN (22:42)
[2021-02-27 03:57] LABS: RSV AMPLIFICATION NEGATIVE (NEGATIVE)
[2021-02-27 06:00] VITALS: BP 116/70
[2021-02-27] MEDS: ACETAMINOPHEN 500 MG TAB PO SCH (06:34)
[2021-02-27] MEDS: ASPIRIN 81 MG CHEW TABLET PO SCH (06:34)
[2021-02-27] MEDS: TAMSULOSIN 0.4 MG CAP PO SCH (06:34)
[2021-02-27] MEDS: SENOKOT S TAB PO SCH (06:35)
[2021-02-27] MEDS: CARVedilol 3.125 MG TAB PO SCH (06:35)
[2021-02-27] MEDS: APIXABAN 5 MG TAB (ELIQUIS) PO SCH (06:35)
[2021-02-27] MEDS: guaiFENesin ER 600 MG TAB PO SCH (06:35)
[2021-02-27] MEDS: OXcarbazepine 300 MG TAB PO SCH (06:35)
[2021-02-27] MEDS: CYANOCOBALAMIN 500 MCG TAB PO SCH (06:35)
[2021-02-27] MEDS: VENLAFAXINE **XR** 37.5 MG CAPSULE PO SCH (06:35)
[2021-02-27] MEDS: NYSTATIN 100,000 UNITS/GM TOPICAL PWD 15 GM TOP SCH (06:36)
[2021-02-27] MEDS: FLUTICASONE PROP 0.05% NASAL SPRAY 16 GM (FLONASE) SCH (06:36)
[2021-02-27] MEDS: ANALGESIC BALM CRM 3OZ TOP SCH (06:36)
[2021-02-27 06:58] LABS: BASO % 0.3 % (0.0-1.0); EOS # 1.2 10^3/uL (0.0-0.5); EOS % 11.8 % (0.0-3.0); HEMATOCRIT 28.2 % (42.0-52.0); HEMOGLOBIN 8.6 g/dl (13.5-17.5); LYMPH # 0.5 10^3/uL (1.5-5.0); LYMPH % 5.2 % (24.0-44.0); MEAN CORPUSCULAR HEMOGLOBIN 33.9 pg (27.0-33.0); MEAN CORPUSCULAR HGB CONC 30.5 g/dl (32.0-36.5); MONO # 0.8 10^3/uL (0.0-0.8); MONO % 8.1 % (2.0-8.0); NEUTROPHILS # 7.4 10^3/uL (1.5-8.5); PLATELET COUNT, AUTOMATED 101 10^3/uL (150-450); RED BLOOD COUNT 2.54 10^6/uL (4.30-6.10); WHITE BLOOD COUNT 10.1 10^3/uL (4.0-10.0)
[2021-02-27] MEDS: HumaLOG INSULIN (NovoLOG) PER UNIT SC SCH ×2 (07:30→12:54)
[2021-02-27 07:35] LABS: CALCIUM LEVEL 8.1 MG/DL (8.8-10.2); CREATININE FOR GFR 6.5 MG/DL (0.70-1.30); GLOMERULAR FILTRATION RATE 9.2 (>49); MAGNESIUM LEVEL 2.3 MG/DL (1.8-2.4); PHOSPHORUS LEVEL 4.7 MG/DL (2.5-4.9); POTASSIUM SERUM 5.4 MEQ/L (3.5-5.1)
[2021-02-27] MEDS ORDERED: SODIUM CHLORIDE 0.9% 1000ML IV PRN (08:00)
[2021-02-27] MEDS ORDERED: LIDOCAINE 1% SDV 5ML VIAL SC PRN (08:00)
[2021-02-27] MEDS: **NOTE PATIENT COMMENT** MISC XX SCH (08:05)
[2021-02-27] MEDS: traMADol 50 MG TAB PO PRN (08:07)
[2021-02-27] MEDS ORDERED: INSUHUMDS SC ×4 (09:00→09:05)
[2021-02-27] MEDS ORDERED: NYST10006 TOP (09:00)
[2021-02-27] MEDS ORDERED: ELIQ5TAB PO (09:00)
[2021-02-27] MEDS ORDERED: VITA500T40 PO (09:00)
[2021-02-27] MEDS ORDERED: CARV3.12 PO (09:00)
[2021-04-12] MEDS ORDERED: THERTAB52 PO (20:21)
[2021-04-12] MEDS ORDERED: MOM30SS2 PO (20:21)
[2021-04-12] MEDS ORDERED: GLUC1KIT IM (20:21)
[2021-04-12] MEDS ORDERED: FLEEENE12 PR (20:21)
[2021-04-18] MEDS ORDERED: FIDA200TA PO (07:13)
[2021-04-18] MEDS ORDERED: RISATAB3 PO (07:13)
[2021-04-18] MEDS ORDERED: MIDO5TA PO (07:13)
[2021-04-18] MEDS ORDERED: LEVO50TA5 PO (07:13)
[2021-04-19] MEDS ORDERED: MIDO5TA PO (09:52)
== END 2021-02-27 13:16 ==
LOC: EDBD 14:55 → M ED 14:55 → EEVIPCON 14:56 → M ED INP 14:56 → ENRESERV 18:46 → M MSPAV 20:49
PROVIDERS: ADMIT Internal Medicine; ATTEND Internal Medicine
DX: R07.89 Other chest pain (principal); I48.91 Unspecified atrial fibrillation; E10.649 Type 1 diabetes mellitus with hypoglycemia without coma; Z79.4 Long term (current) use of insulin; R05.3 Chronic cough; I27.0 Primary pulmonary hypertension; R54 Age-related physical debility; N18.6 End stage renal disease; D64.9 Anemia, unspecified; J96.11 Chronic respiratory failure with hypoxia; Z99.81 Dependence on supplemental oxygen; K59.00 Constipation, unspecified; F25.1 Schizoaffective disorder, depressive type; G89.29 Other chronic pain; Z79.01 Long term (current) use of anticoagulants; Z79.899 Other long term (current) drug therapy
CPT/HCPCS: 36415; 71045; 71275; 80048; 80053; 82550; 82553; 82607; 82728; 82746; 83036; 83550; 83735; 84100; 84484; 85025; 85027; 85610; 85730; 87631; 87641; 87798; 93005; 93041; 93306; 93931; 93970; 94640; 94760; 96374; 96375; 96376; 97161; 97165; 97530; 99285; G0257; G0378; J0882; Q9967

== ENCOUNTER 2021-03-07 14:05 | Emergency (ER) | payer MEDICARE, MEDICAID ==
[~2021-03-07] VITALS: Ht 167.6 cm; Wt 159.8 kg
[~2021-03-07 14:05] MED LIST changes: +ACET-683 PO; +ARTIDRO OU; +CALC667T2 PO; +ELIQ5TAB PO; +FLUTISP; +HUMA100I5 SC; +LIDO1CRE42 TOP; +NYST10006 TOP; +SENN-80 PO; +TRAM50TA2 PO; +VITA500T40 PO
[2021-03-07] MEDS ORDERED: ONDANSETRON 4MG/2ML VIAL IV ONE (14:40)
[2021-03-07] MEDS ORDERED: MORPHINE 4 MG/ML 1ML VIAL/SYRINGE (J2270) IV ONE (14:40)
--- NOTE | 2021-03-07 15:05 | REP ---
INDICATION: left flank pain, eval for ureteral calc. COMPARISON: None. TECHNIQUE: Standard helical technique without contrast FINDINGS: The lung bases are unchanged from a CT chest of 02/23/2021. There is significant motion artifact throughout the exam. In addition, the patient's arms are strewn across the abdomen further limiting the exam causing increased artifact. The gallbladder appears contracted. Pericholecystic edema cannot be ruled out. There is no gross liver abnormality. The spleen is unremarkable. There is no gross pancreatic abnormality. There is marked bilateral renal atrophy. Due to the artifact small calculi cannot be ruled out. There is no evidence of obstructive uropathy. Small renal masses could be obscured by the artifact. There is no para-aortic adenopathy. The abdominal aorta is unremarkable. There is no gross free fluid or free air. Small amounts could be obscured by the artifact. There is no intestinal obstruction. The bowel loops are grossly within normal limits. There is a low abdominal ventral hernia which contains mesentery only in the aperture of which measures approximately 2 cm. Bone window technique throughout the examination shows no evidence of a gross osseous abnormality. IMPRESSION: Findings and limitations as described above. There is no evidence of acute disease. Consider follow-up with gallbladder ultrasound if clinically relevant. <Electronically signed by Tristan Wong > 03/07/21 [id number]
[2021-03-07 15:28] LABS: BASO # 0.1 10^3/uL (0.0-0.2); BASO % 0.7 % (0.0-1.0); EOS # 0.9 10^3/uL (0.0-0.5); EOS % 11.6 % (0.0-3.0); HEMATOCRIT 27.2 % (42.0-52.0); HEMOGLOBIN 8.4 g/dl (13.5-17.5); LYMPH # 0.7 10^3/uL (1.5-5.0); LYMPH % 9.4 % (24.0-44.0); MEAN CORPUSCULAR HGB CONC 30.9 g/dl (32.0-36.5); MEAN CORPUSCULAR VOLUME 110.1 fl (80.0-96.0); MONO % 12.4 % (2.0-8.0); NEUTROPHILS % 65.2 % (36.0-66.0); PLATELET COUNT, AUTOMATED 111 10^3/uL (150-450); RED BLOOD COUNT 2.47 10^6/uL (4.30-6.10); WHITE BLOOD COUNT 7.7 10^3/uL (4.0-10.0)
--- OUTSIDE RECORDS SUMMARY | 2021-03-07 15:35 | CCD ---
Author Author [facility] Organization [facility] Address Unknown Phone Unavailable Care Team Providers Care Flavorings Compounder Name Role Phone Jayda SMART MD Unavailable Unavailable Jayda SMART MD Unavailable Unavailable Jayda SMART MD Unavailable Unavailable Jayda SMART MD Unavailable Unavailable Jayda SMART MD Unavailable Unavailable Jayda SMART MD Unavailable Unavailable Jayda SMART MD Unavailable Unavailable Patrick, L Calista RPA Unavailable Unavailable Patrick, L Calista RPA Unavailable Unavailable Patrick, L Calista RPA Unavailable Unavailable Patrick, L Calista RPA Unavailable Unavailable Patrick, L Calista RPA Unavailable Unavailable Patrick, L Calista RPA Unavailable Unavailable Patrick, L Calista RPA Unavailable Unavailable Patrick, L Calista RPA Unavailable Unavailable Patrick, L Calista RPA Unavailable Unavailable Patrick, L Calista RPA Unavailable Unavailable Patrick, L Calista RPA Unavailable Unavailable Patrick, L Calista RPA Unavailable Unavailable Patrick, L Calista RPA Unavailable Unavailable Patrick, L Calista RPA Unavailable Unavailable Patrick, L Calista RPA Unavailable Unavailable Patrick, L Calista RPA Unavailable Unavailable Patrick, L Calista RPA Unavailable Unavailable Patrick, L Calista RPA Unavailable Unavailable Patrick, L Calista RPA Unavailable Unavailable Patrick, L Calista RPA Unavailable Unavailable Patrick, L Calista RPA Unavailable Unavailable Patrick, L Calista RPA Unavailable Unavailable Patrick, L Calista RPA Unavailable Unavailable Patrick, L Calista RPA Unavailable Unavailable Patrick, L Calista RPA Unavailable Unavailable Patrick, L Calista RPA Unavailable Unavailable Patrick, L Calista RPA Unavailable Unavailable Patrick, L Calista RPA Unavailable Unavailable Patrick, L Calista RPA Unavailable Unavailable Patrick, L Calista RPA Unavailable Unavailable Patrick, L Calista RPA Unavailable Unavailable Patrick, L Calista RPA Unavailable Unavailable Re-disclosure Warning The records that you are about to access may contain information from federally-assisted alcohol or drug abuse programs. If such information is present, then the following federally mandated warning applies: This information has been disclosed to you from records protected by federal confidentiality rules (42 CFR part 2). The federal rules prohibit you from making any further disclosure of this information unless further disclosure is expressly permitted by the written consent of the person to whom it pertains or as otherwise permitted by 42 CFR part 2. A general authorization for the release of medical or other information is NOT sufficient for this purpose. The Federal rules restrict any use of the information to criminally investigate or prosecute any alcohol or drug abuse patient.The records that you are about to access may contain highly sensitive health information, the redisclosure of which is protected by Article 27-F of the [facility] Public Health law. If you continue you may have access to information: Regarding HIV / AIDS; Provided by facilities licensed or operated by the [facility] Office of Mental Health; or Provided by the [facility] Office for People With Developmental Disabilities. If such information is present, then the following [facility] mandated warning applies: This information has been disclosed to you from confidential records which are protected by state law. State law prohibits you from making any further disclosure of this information without the specific written consent of the person to whom it pertains, or as otherwise permitted by law. Any unauthorized further disclosure in violation of state law may result in a fine or senior care sentence or both. A general authorization for the release of medical or other information is NOT sufficient authorization for further disc losure. Encounters Encounter Providers Location Date Indications Data Source(s ) Outpatient Attender: BRYAN Tran/Michael/eKn/Alexia 12/24/2020 03:45:00 PM EDT [facility] Outpatient Attender: Calista Patrick NANETTE Marc/[place]/Ken/R eindl 08/20/2020 11:00:00 AM EDT [facility] ([facility], ) Outpatient Attender: Calista Patrick NANETTE Marc/[place]/Ken/R e[place]l 07/30/2020 01:00:00 PM EDT [facility] ([facility], ) Outpatient Attender: Calista Patrick NANETTE Marc/[place]/Ken/R eindl 07/23/2020 09:00:00 AM EDT [facility] ([facility], ) Outpatient Attender: Calista Patrick NANETTE Marc/[place]/Ken/R eindl 05/07/2020 12:00:00 PM EST [facility] ([facility], ) Outpatient Attender: Calista Patrick NANETTE Marc/[place]/Ken/R eindl 04/24/2020 08:00:00 AM EST [facility] ([facility], ) Immunizations Vaccine Date Status Description Data Source(s) COVID-19 VACCINE Pfizer 01/22/2021 12:00:00 AM EDT completed [facility] Vaccine Series Complete: YESThis Data wa s Submitted to [facility] Via [employer]. COVID-19 VACCINE Pfizer 04/30/2020 12:00:00 AM EST completed [facility] Vaccine Series Complete: YESThis Data wa s Submitted to [facility] Via [employer]. COVID-19 VACCINE Pfizer 04/09/2020 12:00:00 AM EST completed [facility] Vaccine Series Complete: NOThis Data was Submitted to [facility] Via [employer]. Medications Medication Brand Name Start Date Product Form Dose Route Admi nistrative Instructions Pharmacy Instructions Status Indications Reaction Description Data Source(s) 300 unit/mL (1.5 mL) 05/19/2020 12:00:00 AM EST insulin pen 4 INJECT 72 UNITS UNDER THE SKIN ONCE DAILY INJECT 72 UNITS UNDER THE SKIN ONCE DAILY SOLD: 05/19/2020 [facility] 300 unit/mL (1.5 mL) 04/03/2020 12:00:00 AM EST insulin pen 1 INJECT 72 UNITS UNDER THE SKIN DAILY INJECT 72 UNITS UNDER THE SKIN DAILY SOLD: 04/03/2020 [facility] Insurance Providers Payer name Policy type / Coverage type Policy ID Covered libertarian ID Covered libertarian's relationship to perez Policy Perez Plan Information MEDICARE [id number] SP [id number] A MEDICARE [id number] SP [id number] A MEDICAID [id number] SP [id number] MEDICAID [id number] SP [id number] MEDICAID [id number] SP [id number] MEDICAID [id number] SP [id number] MEDICAID [id number] SP [id number] MEDICAID [id number] SP [id number] MEDICAID [id number] SP [id number] [facility] MEDICAID [id number] SP [id number] MEDICARE [id number] SP [id number] [facility] MEDICAID [id number] SP [id number] [id number] SP [id number] MEDICAID [id number] SP [id number] ANSI-Medicare Part B [id number] ANSI-Medicaid [id number] MEDICAID [id number] S [id number] MEDICARE C [id number] S [id number] A SELF PAY UNAVAILABLE UNAVAILA BLE Problems, Conditions, and Diagnoses No Information Surgeries/Procedures Procedure Description Date Indications Data Source(s) OFFICE OUTPATIENT VISIT 15 MINUTES 12/24/2020 12:00:00 AM EDT [facility] ([facility], ) OFFICE OUTPATIENT VISIT 15 MINUTES 08/20/2020 12:00:00 AM EDT [facility] ([facility], ) Dialysis Circuit W/ Transluminal Balloon Angioplasty, Periph eral 08/10/2020 12:00:00 AM EDT [facility] ([facility], ) Moderate Sedation Services; Same Phys Intl 15 Mins; PT >= 5 Years 08/10/2020 12:00:00 AM EDT [facility] ([facility], ) OFFICE OUTPATIENT VISIT 15 MINUTES 07/30/2020 12:00:00 AM EDT [facility] ([facility]) OFFICE OUTPATIENT VISIT 15 MINUTES 07/23/2020 12:00:00 AM EDT [facility] ([facility]) Dialysis Circuit W/ Transluminal Balloon Angioplasty, Periph eral 04/27/2020 12:00:00 AM EST [facility] ([facility], ) Moderate Sedation Services; Same Phys Intl 15 Mins; PT >= 5 Years 04/27/2020 12:00:00 AM EST [facility] ([facility]) Results ID Date Data Source [id number] 02/27/2021 02:49:00 AM EST [facility] Name Value Range Interpretation Code Description Data Valeria rce(s) Supporting Document(s) SARS coronavirus 2 RNA [Presence] in Res piratory specimen by PHUONG with probe detection NEGATIVE [facility] This lab was ordered by [facility] a nd reported by [facility]. ID Date Data Source [id number] 02/23/2021 04:26:00 PM EST [facility] Name Value Range Interpretation Code Description Data Valeria rce(s) Supporting Document(s) SARS coronavirus 2 RNA [Presence] in Res piratory specimen by PHUONG with probe detection NEGATIVE - SARS-CoV-2 (COVID19) [facility] This lab was ordered by [facility] a nd reported by [facility]. ID Date Data Source [id number] 02/08/2021 02:09:00 PM EDT [facility] Name Value Range Interpretation Code Description Data Valeria rce(s) Supporting Document(s) SARS-CoV-2 (COVID 19) NEGATIVE - SARS-CoV-2 (COVID19) [facility] This lab was ordered by [facility] a nd reported by [facility]. ID Date Data Source [id number] 08/16/2020 12:00:00 AM EDT [facility] Name Value Range Interpretation Code Description Data Valeria rce(s) Supporting Document(s) SARS-CoV2 Rapid Antigen Negative [facility] This lab was ordered by [facility] and reported by [facility]. ID Date Data Source [id number] 08/10/2020 03:19:00 PM EDT [facility] ([facility], ) Name Value Range Interpretation Code Description Data Valeria rce(s) Supporting Document(s) Glucose [Mass/volume] in Capillary blood by Glucometer 67 mg/dL 80-115 Below low normal [facility] ([facility], ) ID Date Data Source [id number] 08/10/2020 03:19:00 PM EDT [facility] ([facility]) Name Value Range Interpretation Code Description Data Valeria rce(s) Supporting Document(s) Bedside Glucose 67 mg/dL 80-115 [facility] ([facility]) ID Date Data Source [id number] 08/10/2020 01:53:00 PM EDT [facility] ([facility], ) Name Value Range Interpretation Code Description Data Valeria rce(s) Supporting Document(s) Glucose [Mass/volume] in Capillary blood by Glucometer 76 mg/dL 80-115 Below low normal [facility] ([facility]) ID Date Data Source [id number] 08/10/2020 01:53:00 PM EDT [facility] ([facility]) Name Value Range Interpretation Code Description Data Valeria rce(s) Supporting Document(s) Bedside Glucose 76 mg/dL 80-115 [facility] ([facility]) ID Date Data Source [id number] 08/03/2020 12:49:00 PM EDT [facility] Name Value Range Interpretation Code Description Data Valeria rce(s) Supporting Document(s) SARS-CoV-2 (COVID 19) NEGATIVE - SARS-CoV-2 (COVID19) [facility] This lab was ordered by [facility] a nd reported by [facility]. ID Date Data Source [id number] 07/31/2020 10:00:00 AM EDT [facility] Name Value Range Interpretation Code Description Data Valeria rce(s) Supporting Document(s) SARS-CoV-2 (COVID-19) RNA [Presence] in Respiratory specimen by PHUONG with probe detection Not Detected [facility] This lab was ordered by [facility] and reported by [employer] ID Date Data Source [id number] 07/24/2020 10:23:00 AM EDT [facility] Name Value Range Interpretation Code Description Data Valeria rce(s) Supporting Document(s) SARS-CoV-2 (COVID-19) RNA [Presence] in Respiratory specimen by PHUONG with probe detection Not Detected [facility] This lab was ordered by [facility] and reported by [employer] ID Date Data Source [id number] 07/17/2020 10:00:00 AM EDT [facility] Name Value Range Interpretation Code Description Data Valeria rce(s) Supporting Document(s) SARS-CoV-2 (COVID-19) RNA [Presence] in Respiratory specimen by PHUONG with probe detection Not Detected [facility] This lab was ordered by [facility] and reported by [employer] ID Date Data Source [id number]/13/2020 12:00:00 AM EDT [facility] Name Value Range Interpretation Code Description Data Valeria rce(s) Supporting Document(s) SARS coronavirus 2 Ag Negative [facility] This lab was ordered by [facility] and reported by [facility]. ID Date Data Source [id number] 07/06/2020 12:00:00 AM EDT [facility] Name Value Range Interpretation Code Description Data Valeria rce(s) Supporting Document(s) SARS-CoV2 Rapid Antigen Negative [facility] This lab was ordered by [facility] and reported by [facility]. ID Date Data Source [id number] 06/13/2020 01:00:00 PM EST [facility] Name Value Range Interpretation Code Description Data Valeria rce(s) Supporting Document(s) SARS coronavirus 2 RNA Not Detected [facility] [place] This lab was ordered by [facility] and reported by [facility]. ID Date Data Source [id number] 06/06/2020 01:00:00 PM EST [facility] Name Value Range Interpretation Code Description Data Valeria rce(s) Supporting Document(s) SARS coronavirus 2 RNA Not Detected [facility] This lab was ordered by [facility] and reported by [facility]. ID Date Data Source [id number] 05/30/2020 10:40:00 AM EST [facility] Name Value Range Interpretation Code Description Data Valeria rce(s) Supporting Document(s) SARS coronavirus 2 RNA Not Detected [facility] This lab was ordered by [facility] and reported by [facility]. ID Date Data Source [id number] 05/23/2020 01:00:00 PM EST [facility] Name Value Range Interpretation Code Description Data Valeria rce(s) Supporting Document(s) SARS coronavirus 2 RNA Not Detected [facility] This lab was ordered by [facility] and reported by [facility]. ID Date Data Source [id number] 05/16/2020 01:00:00 PM EST [facility] Name Value Range Interpretation Code Description Data Valeria rce(s) Supporting Document(s) SARS coronavirus 2 RNA Not Detected [facility] [place] This lab was ordered by [facility] and reported by [facility]. ID Date Data Source [id number] 05/09/2020 11:30:00 AM EST [facility] Name Value Range Interpretation Code Description Data Valeria rce(s) Supporting Document(s) SARS coronavirus 2 RNA Not Detected [facility] This lab was ordered by [facility] and reported by [facility]. ID Date Data Source [id number] 05/02/2020 11:00:00 AM EST [facility] Name Value Range Interpretation Code Description Data Valeria rce(s) Supporting Document(s) SARS coronavirus 2 RNA Not Detected [facility] This lab was ordered by [facility] and reported by [facility]. ID Date Data Source [id number] 04/27/2020 01:00:00 PM EST [facility] ([facility], ) Name Value Range Interpretation Code Description Data Valeria rce(s) Supporting Document(s) Glucose [Mass/volume] in Capillary blood by Glucometer 247 mg/dL 80-115 Above high normal [facility] ([facility], ) ID Date Data Source [id number] 04/27/2020 01:00:00 PM EST [facility] ([facility]) Name Value Range Interpretation Code Description Data Valeria rce(s) Supporting Document(s) Bedside Glucose 247 mg/dL 80-115 [facility] ([facility]) ID Date Data Source [id number] 04/25/2020 10:00:00 AM EST [facility] Name Value Range Interpretation Code Description Data Valeria rce(s) Supporting Document(s) SARS coronavirus 2 RNA Not Detected [facility] This lab was ordered by [facility] and reported by [facility]. ID Date Data Source [id number] 04/19/2020 10:15:00 AM EST [facility] Name Value Range Interpretation Code Description Data Valeria rce(s) Supporting Document(s) SARS-CoV-2 (COVID 19) NEGATIVE - SARS-CoV-2 (COVID19) [facility] This lab was ordered by [facility] a nd reported by [facility]. ID Date Data Source [id number] 04/18/2020 11:30:00 AM EST [facility] Name Value Range Interpretation Code Description Data Valeria rce(s) Supporting Document(s) SARS coronavirus 2 RNA Not Detected [facility] [place] This lab was ordered by [facility] and reported by [facility]. ID Date Data Source [id number] 04/13/2020 03:22:00 PM EST [facility] Name Value Range Interpretation Code Description Data Valeria rce(s) Supporting Document(s) SARS coronavirus 2 RNA Not Detected [facility] This lab was ordered by [facility] and reported by [facility]. ID Date Data Source [id number] 04/09/2020 10:30:00 AM EST [facility] Name Value Range Interpretation Code Description Data Valeria rce(s) Supporting Document(s) SARS coronavirus 2 RNA Not Detected [facility] [place] This lab was ordered by [facility] and reported by [facility]. ID Date Data Source [id number] 04/03/2020 09:57:00 AM EST [facility] Name Value Range Interpretation Code Description Data Valeria rce(s) Supporting Document(s) SARS coronavirus 2 RNA [facility] This lab was ordered by [facility] and reported by [facility]. ID Date Data Source [id number] 03/28/2020 11:00:00 AM EST [facility] Name Value Range Interpretation Code Description Data Valeria rce(s) Supporting Document(s) SARS coronavirus 2 RNA [facility] This lab was ordered by [facility] and reported by [facility]. ID Date Data Source [id number] 03/22/2020 10:20:00 AM EST [facility] Name Value Range Interpretation Code Description Data Valeria rce(s) Supporting Document(s) SARS coronavirus 2 RNA [facility] This lab was ordered by [facility] and reported by [facility]. ID Date Data Source [id number] 03/18/2020 01:52:00 PM EST [facility] Name Value Range Interpretation Code Description Data Valeria rce(s) Supporting Document(s) SARS coronavirus 2 RNA [facility] This lab was ordered by [facility] and reported by [facility]. ID Date Data Source [id number] 02/29/2020 12:00:00 PM EST [facility] Name Value Range Interpretation Code Description Data Valeria rce(s) Supporting Document(s) SARS coronavirus 2 RNA [facility] This lab was ordered by [facility] and reported by [facility]. ID Date Data Source [id number] 02/23/2020 12:00:00 PM EST [facility] Name Value Range Interpretation Code Description Data Valeria rce(s) Supporting Document(s) SARS coronavirus 2 RNA [facility] This lab was ordered by [facility] and reported by [facility]. ID Date Data Source [id number] 02/16/2020 07:30:00 AM EST [facility] Name Value Range Interpretation Code Description Data Valeria rce(s) Supporting Document(s) SARS coronavirus 2 RNA [facility] This lab was ordered by [facility] and reported by [facility]. Procedure Social History Code Duration Value Status Description Data Source(s ) Smoking 08/20/2020 12:00:00 AM EDT Patient is a former smoker completed Patient is a former smoker [facility] ([facility]) Vital Signs ID Date Data Source UNK Name Value Range Interpretation Code Description Data Source(s) Body weight 346.06 [lb_av] 346.06 [lb_av] [facility] ([facility]) on chart Diastolic blood pressure 72 mm[Hg] 72 mm[Hg] [facility] ([facility]) Heart rate 81 /min 81 /min [facility] ([facility]) Body height 67 [in_i] 67 [in_i] [facility] 5'7" Systolic blood pressure 146 mm[Hg] 146 mm[Hg] M [facility] ([facility]) Body mass index (BMI) [Ratio] 54.2 kg/m2 54.2 k g/m2 [facility] ([facility]) Ranger body weight 148 [lb_av] 148 [lb_av] [facility] ([facility]) Body weight 156.974 kg 156.974 kg [facility] ([facility]) Body surface area Derived from formula 2.55 m2 2.55 m2 [facility] ([facility]) Heart rate 73 /min 73 /min [facility] ([facility]) Body height 67 [in_i] 67 [in_i] [facility] ([facility]) 5'7" Body weight 325.19 [lb_av] 325.19 [lb_av] [facility] ([facility]) Body mass index (BMI) [Ratio] 50.9 kg/m2 50.9 k g/m2 [facility] ([facility]) Ranger body weight 148 [lb_av] 148 [lb_av] [facility] ([facility]) Body weight 147.505 kg 147.505 kg [facility] ([facility]) Body surface area Derived from formula 2.49 m2 2.49 m2 [facility] ([facility]) Systolic blood pressure 153 mm[Hg] 153 mm[Hg] [facility] Diastolic blood pressure 90 mm[Hg] 90 mm[Hg] [facility] ([facility]) Body height 67 [in_i] 67 [in_i] [facility] ([facility]) 5'7" Body weight 325.19 [lb_av] 325.19 [lb_av] [facility] ([facility]) Body mass index (BMI) [Ratio] 50.9 kg/m2 50.9 k g/m2 [facility] ([facility]) Ranger body weight 148 [lb_av] 148 [lb_av] [facility] ([facility]) Body weight 147.505 kg 147.505 kg [facility] ([facility]) Body surface area Derived from formula 2.49 m2 2.49 m2 [facility] ([facility]) Body height 67 [in_i] 67 [in_i] [facility] ([facility]) 5'7" Body weight 147.420 kg 147.420 kg [facility] ([facility]) Diastolic blood pressure 67 mm[Hg] 67 mm[Hg] [facility] ([facility]) Body surface area Derived from formula 2.49 m2 2.49 m2 [facility] ([facility]) Ranger body weight 148 [lb_av] 148 [lb_av] [facility] ([facility]) Body weight 325.00 [lb_av] 325.00 [lb_av] [facility] ([facility]) Body mass index (BMI) [Ratio] 50.9 kg/m2 50.9 k g/m2 [facility] ([facility]) Systolic blood pressure 123 mm[Hg] 123 mm[Hg] [facility] ([facility]) Ranger body weight 148 [lb_av] 148 [lb_av] [facility] ([facility]) Diastolic blood pressure 81 mm[Hg] 81 mm[Hg] [facility] ([facility]) Body mass index (BMI) [Ratio] 51.1 kg/m2 51.1 k g/m2 [facility] ([facility]) Body weight 147.874 kg 147.874 kg [facility] ([facility]) Body surface area Derived from formula 2.49 m2 2.49 m2 [facility] ([facility]) Systolic blood pressure 151 mm[Hg] 151 mm[Hg] [facility] ([facility]) Body height 67 [in_i] 67 [in_i] [facility] ([facility]) 5'7" Heart rate 80 /min 80 /min [facility] ([facility]) Body weight 326.00 [lb_av] 326.00 [lb_av] [facility] ([facility]) Systolic blood pressure 176 mm[Hg] 176 mm[Hg] [facility] Diastolic blood pressure 81 mm[Hg] 81 mm[Hg] [facility] ([facility]) Body height 67 [in_i] 67 [in_i] [facility] ([facility]) 5'7" Body weight 326.00 [lb_av] 326.00 [lb_av] [facility] ([facility]) Body mass index (BMI) [Ratio] 51.1 kg/m2 51.1 k g/m2 [facility] ([facility]) Ranger body weight 148 [lb_av] 148 [lb_av] [facility] Body surface area Derived from formula 2.49 m2 2.49 m2 [facility] ([facility]) Body weight 147.874 kg 147.874 kg [facility] ([facility]) Systolic blood pressure 167 mm[Hg] 167 [facility]Hg] [facility] Diastolic blood pressure 85 mm[Hg] 85 mm[Hg] [facility] ([facility]) Body weight 324.56 [lb_av] 324.56 [lb_av] [facility]) Body height 67 [in_i] 67 [in_i] [facility] ([facility]) 5'7" Ranger body weight 148 [lb_av] 148 [lb_av] [facility] ([facility]) Body weight 147.222 kg 147.222 kg [facility] ([facility] Body surface area Derived from formula 2.48 m2 2.48 m2 [facility] ([facility]) Heart rate 72 /min 72 /min [facility] ([facility]) Body mass index (BMI) [Ratio] 50.8 kg/m2 50.8 k g/m2 [facility] ([facility])
--- NOTE | 2021-03-07 16:08 | REP ---
INDICATION: Abdominal Pain COMPARISON: 02/23/2021. TECHNIQUE: Frontal/Lateral FINDINGS: There is no definite acute infiltrate. There appear to be mild bibasilar fibro atelectatic changes. The heart is mildly enlarged. The mediastinal silhouette is unremarkable. There are degenerative changes of the spine. IMPRESSION: Limited exam due to body habitus. No definite acute infiltrate. Mild cardiomegaly. <Electronically signed by Inder Hollis > 03/07/21 [id number]
[2021-03-07 16:22] LABS: ALBUMIN 2.7 GM/DL (3.2-5.2); BILIRUBIN,DIRECT 0.1 MG/DL (0.0-0.2); BILIRUBIN,TOTAL 0.5 MG/DL (0.2-1.0)
[2021-03-07 16:56] LABS: RSV AMPLIFICATION NEGATIVE (NEGATIVE)
[2021-03-07] MEDS ORDERED: LIDOCAINE 2% 5ML JELLY UROJET TOP ONE (17:00)
[2021-03-07 19:00] VITALS: BP 130/63
--- NOTE | 2021-03-08 01:04 | ECGEPIP ---
[facility] - ED Test Date: 2021-03-07 Pat Name: AIDA SAMAYOA Department: Room: - Gender: Male [employer]: [employer] : 1955 Requested By: RASHAWN Olivier Order Number: [id number] Reading MD: González Denson Measurements Intervals [place] Rate: 79 P: MO: QRS: -2 QRSD: 106 T: 170 QT: 390 QTc: 447 Interpretive Statements Atrial fibrillation with premature ventricular or aberrantly conducted complexes Low voltage QRS ST & T wave abnormality, consider lateral ischemia SIMILAR TO 02/23/21 Electronically Signed on 03-08-2021 1:04:25 EST by González Denson
== END 2021-03-07 19:18 | disposition home or self-care (01) ==
LOC: EDBD 14:05 → M ED 14:05
DX: R10.9 Unspecified abdominal pain (principal); I48.91 Unspecified atrial fibrillation; I13.2 Hypertensive heart and chronic kidney disease with heart failure and with stage 5 chronic kidney disease, or end stage renal disease; I50.9 Heart failure, unspecified; E78.5 Hyperlipidemia, unspecified; N40.0 Benign prostatic hyperplasia without lower urinary tract symptoms; J44.9 Chronic obstructive pulmonary disease, unspecified; Z99.81 Dependence on supplemental oxygen; G93.41 Metabolic encephalopathy; F31.9 Bipolar disorder, unspecified; F20.9 Schizophrenia, unspecified; Z79.01 Long term (current) use of anticoagulants; Z79.899 Other long term (current) drug therapy

== ENCOUNTER 2021-03-09 12:04 | Inpatient (IN) | payer MEDICARE, MEDICAID ==
[2021-03-09] VITALS (11 sets, daily range): BP systolic 110–129; BP diastolic 56–89
--- OUTSIDE RECORDS SUMMARY | 2021-03-09 12:08 | CCD ---
Author Author [facility] Organization [facility] Address Unknown Phone Unavailable Care Team Providers [employer] Name Role Phone Jayda SMART MD Unavailable [...] is protected by Article 27-F of the [facility] Public Health law. If you continue you may have access to information: Regarding HIV / AIDS; Provided by facilities licensed or operated by the [facility] Office of Mental Health; or Provided by the [facility] Office for People With Developmental Disabilities. If such information is present, then the following [facility] mandated warning applies: This information has been [...] law may result in a fine or half-way sentence or both. A general authorization for the release of medical or other information is NOT sufficient authorization for further disc losure. Encounters Encounter Providers Location Date Indications Data Source(s ) Outpatient Attender: BRYAN Tran/Michael/Ken/Alexia 12/24/2020 03:45:00 PM EDT [facility] ([facility], ) Outpatient Attender: Calista Patrick NANETTE Marc/[place]/Ken/R eindl 08/20/2020 11:00:00 AM EDT [facility] ([facility], ) Outpatient Attender: Calista Patrick NANETTE Marc/[place]/Ken/R e[place]l 07/30/2020 01:00:00 PM EDT [facility] ([facility], ) Outpatient Attender: Calista Patrick NANETTE Marc/[place]/Ken/R eindl 07/23/2020 09:00:00 AM EDT [facility] ([facility], ) Outpatient Attender: Calista Patrick NANETTE Marc/[place]/Ken/R eindl 05/07/2020 12:00:00 PM EST [facility] ([facility], ) Outpatient Attender: Calista Patrick NANETTE Marc/[place]/Ken/R eindl 04/24/2020 08:00:00 AM EST [facility] ([facility], ) Immunizations Vaccine Date Status Description Data Source(s) COVID-19 VACCINE Pfizer 01/22/2021 12:00:00 AM EDT completed [facility] Vaccine Series Complete: YESThis Data wa s Submitted to [facility] Via [facility]. COVID-19 VACCINE Pfizer 04/30/2020 12:00:00 AM EST completed [facility] Vaccine Series Complete: YESThis Data wa s Submitted to [facility] Via [facility]. COVID-19 VACCINE Pfizer 04/09/2020 12:00:00 AM EST completed [facility] Vaccine Series Complete: NOThis Data was Submitted to [facility] Via [facility]. Medications Medication Brand Name Start Date Product Form Dose Route Admi nistrative Instructions Pharmacy Instructions Status Indications Reaction Description Data Source(s) tramadol hydrochloride 50 MG Oral Tablet Tramadol HCL 03/04/2021 12:00:00 AM EST ORAL completed [facility] ([facility]) tramadol hydrochloride 50 MG Oral Tablet Tramadol HCL 02/27/2021 12:00:00 AM EST ORAL active [facility] ([facility]) 300 unit/mL (1.5 mL) 05/19/2020 12:00:00 AM EST insulin pen 4 INJECT 72 UNITS UNDER THE SKIN ONCE DAILY INJECT 72 UNITS UNDER THE SKIN ONCE DAILY SOLD: 05/19/2020 [facility] 300 unit/mL (1.5 mL) 04/03/2020 12:00:00 AM EST insulin pen 1 INJECT 72 UNITS UNDER THE SKIN DAILY INJECT 72 UNITS UNDER THE SKIN DAILY SOLD: 04/03/2020 [facility] Insurance Providers Payer name Policy type / Coverage type Policy ID Covered constitution party ID Covered constitution party's relationship to perez Policy Perez Plan Information MEDICARE [id number] SP [id number] A MEDICARE [id number] SP [id number] A MEDICAID [id number] SP [id number] MEDICAID [id number] SP [id number] MEDICAID [id number] SP [id number] MEDICAID [id number] SP [id number] MEDICAID [id number] SP [id number] MEDICAID [id number] SP [id number] MEDICAID [id number] SP [id number] [facility] MEDICAID [id number] SP [id number] MEDICARE [id number] SP [id number] [facility] MEDICAID [id number] SP [id number] [place] [id number] SP [id number] MEDICAID [id number] SP [id number] ANS-Medicare Part B [id number] ANSI-Medicaid [id number] MEDICAID M [id number] S [id number] MEDICARE C [id number] S [id number] A SELF PAY UNAVAILABLE UNAVAILA BLE Problems, Conditions, and Diagnoses No Information Surgeries/Procedures Procedure Description Date Indications Data Source(s) SBSQ NURSING FACIL CARE/DAY NEW PROBLEM 25 MIN 021 12:00:00 AM EDT [facility] ([facility]) SBSQ NURSING FACIL CARE/DAY NEW PROBLEM 25 MIN 021 12:00:00 AM EDT [facility] ([facility]) OFFICE OUTPATIENT VISIT 15 MINUTES 12/24/2020 12:00:00 AM EDT [facility] ([facility]) OFFICE OUTPATIENT VISIT 15 MINUTES 08/20/2020 12:00:00 AM EDT [facility] ([facility]) Dialysis Circuit W/ Transluminal Balloon Angioplasty, Perip eral 08/10/2020 12:00:00 AM EDT [facility] ([facility]) Moderate Sedation Services; Same Phys Intl 15 Mins; PT >= 5 Years 08/10/2020 12:00:00 AM EDT [facility] ([facility]) OFFICE OUTPATIENT VISIT 15 MINUTES 07/30/2020 12:00:00 AM EDT [facility] ([facility]) OFFICE OUTPATIENT VISIT 15 MINUTES 07/23/2020 12:00:00 AM EDT [facility] ([facility]) Dialysis Circuit W/ Transluminal Balloon Angioplasty, Perip eral 04/27/2020 12:00:00 AM EST [facility] ([facility]) Moderate Sedation Services; Same Phys Intl 15 Mins; PT >= 5 Years 04/27/2020 12:00:00 AM EST [facility] ([facility]) Results ID Date Data Source [id number] 03/07/2021 03:25:00 PM EST [facility] ([facility]) Name Value Range Interpretation Code Description Data Valeria rce(s) Supporting Document(s) Laboratory test finding (navigational concept) 27.0 % 38.0-51.0 [facility] ([facility]) Laboratory test finding (navigational concept) 139 meq/L 136-145 [facility] ([facility]) Laboratory test finding (navigational concept) 210 mg/dL 70-105 [facility] ([facility]) Laboratory test finding (navigational concept) 3.8 meq/L 3.5-5.1 [facility] ([facility]) Laboratory test finding (navigational concept) 4.2 mg/dL 4.5-5.3 [facility] ([facility]) Laboratory test finding (navigational concept) 29.0 MM/L 23.0-27.0 [facility] Laboratory test finding (navigational concept) 97 meq/L 98-109 [facility] Laboratory test finding (navigational concept) 4.7 mg/dL 0.6-1.3 [facility] Laboratory test finding (navigational concept) 36 mg/dL 8-26 [facility] ID Date Data Source [id number] 03/07/2021 03:05:00 PM EST [facility] Name Value Range Interpretation Code Description Data Valeria rce(s) Supporting Document(s) Influenza B Amplification Laboratory test result [facility] ([facility]) Negative results do not preclude influen za or RSV virus infection and should not be used as the sole basis for treatment or other patient management decisions. Influenza A Amplification Laboratory test result [facility] Negative results do not preclude influen za or RSV virus infection and should not be used as the sole basis for treatment or other patient management decisions. Laboratory test finding (navigational concept) Laboratory test result [facility] ([facility]) A false negative result may occur if a s pecimen is improperly collected, transported or handled. False negative results may also occur if inadequate numbers of organisms are present in the specimen. As with any molecular test, mutations within the target regions of Xpert Xpress SARS-CoV-2 could affect primer and/or probe binding resulting in failure to detect the presence of virus. This test cannot rule out diseases caused by other bacterial or viral pathogens. ASSAY INFORMATION: Real time RT-PCR test. DISCLAIMER: Testing was performed using the [employer] SARS-CoV-2 test. This test was developed and its performance characteristics determined by [employer]. This test has not been FDA cleared or approved. This test has been authorized by FDA under an Emergency Use Authorization (EUA). This test is only authorized for the duration of time the declaration that circumstances exist justifying the authorization of the emergency use of in vitro diagnostic tests for detection of SARS-CoV-2 virus and/or diagnosis of COVID-19 infection under section 564(b)(1) of the Act, 21 U.S.C. 360bbb-3(b)(1), unless the authorization is terminated or revoked sooner. RSV Amplification Laboratory test result [facility] ([facility]) Negative results do not preclude influen za or RSV virus infection and should not be used as the sole basis for treatment or other patient management decisions. ID Date Data Source [id number] 03/07/2021 03:05:00 PM EST [facility] ([facility]) Name Value Range Interpretation Code Description Data Valeria rce(s) Supporting Document(s) Lipoprotein lipase [Enzymatic activity/volume] in Serum or P lasma 187 U/L 73-393 [facility] ID Date Data Source [id number] 03/07/2021 03:05:00 PM EST [facility] Name Value Range Interpretation Code Description Data Valeria rce(s) Supporting Document(s) Ast/Sgot 32 U/L 7-37 [facility] ([facility]) Alt/SGPT 24 U/L 12-78 [facility] ([facility]) Bilirubin,Total 0.5 mg/dL 0.2-1.0 [facility] ([facility]) Alkaline Phosphatase 158 U/L 45-117 [facility] ([facility]) Bilirubin,Direct 0.1 mg/dL 0.0-0.2 [facility] ([facility]) Total Protein 7.0 GM/DL 6.4-8.2 [facility] ([facility]) Albumin/Globulin Ratio 0.6 [facility] ([facility]) Albumin 2.7 GM/DL 3.2-5.2 [facility] ([facility]) ID Date Data Source [id number] 03/07/2021 03:05:00 PM EST [facility] ([facility]) Name Value Range Interpretation Code Description Data Valeria rce(s) Supporting Document(s) Lactate [Mass/volume] in Serum or Plasma 1.0 mmol/L 0.4-2.0 [facility] ([facility]) Y/N query for Sepsis Lactate Rule: Y ID Date Data Source [id number] 03/07/2021 03:05:00 PM EST [facility] ([facility]) Name Value Range Interpretation Code Description Data Valeria rce(s) Supporting Document(s) White Blood Count 7.7 10 4.0-10.0 [facility] ([facility]) Hemoglobin 8.4 g/dL 13.5-17.5 [facility] Red Blood Count 2.47 10 4.30-6.10 [facility] ([facility]) Mean Corpuscular Volume 110.1 fl 80.0-96.0 [facility] ([facility]) Hematocrit 27.2 % 42.0-52.0 [facility] Mean Corpuscular Hemoglobin 34.0 pg 27.0-33.0 [facility] ([facility]) Mean Corpuscular HGB Conc 30.9 g/dL 32.0-36.5 [facility] NT ([facility]) Platelet Count, Automated 111 10 150-450 [facility] ([facility]) Red Cell Distribution Width 18.3 % 11.5-14.5 [facility] ([facility]) [place] % 12.4 % 2.0-8.0 [facility]) Neutrophils % 65.2 % 36.0-66.0 [facility] ([facility]) Lymph % 9.4 % 24.0-44.0 [facility] Eos % 11.6 % 0.0-3.0 [facility]) Baso % 0.7 % 0.0-1.0 [facility]) Nucleated Red Blood Cell % 0.0 % 0-0 MED [facility] ([facility]) Immature Granulocyte % 0.7 % 0-3.0 [facility] ([facility]) Lymph # 0.7 10 1.5-5.0 [facility] Neutrophils # 5.0 10 1.5-8.5 [facility] [place] # 1.0 10 0.0-0.8 [facility] Eos # 0.9 10 0.0-0.5 [facility] Baso # 0.1 10 0.0-0.2 [facility] ID Date Data Source [id number] 02/27/2021 02:49:00 AM EST [facility] Name Value Range Interpretation Code Description Data Valeria rce(s) Supporting Document(s) SARS coronavirus 2 RNA [Presence] in Res piratory specimen by PHUONG with probe detection NEGATIVE [facility] This lab was ordered by [facility] a nd reported by [facility]. ID Date Data Source [id number] 02/23/2021 04:26:00 PM EST [facility] Name Value Range Interpretation Code Description Data Valeria rce(s) Supporting Document(s) SARS coronavirus 2 RNA [Presence] in Res piratory specimen by PHUONG with probe detection NEGATIVE - SARS-CoV-2 (COVID19) [facility] [place] This lab was ordered by [facility] a nd reported by [facility]. ID Date Data Source [id number] 02/08/2021 02:09:00 PM EDT [facility] Name Value Range Interpretation Code Description Data Valeria rce(s) Supporting Document(s) SARS-CoV-2 (COVID 19) NEGATIVE - SARS-CoV-2 (COVID19) [facility] This lab was ordered by [facility] a nd reported by [facility]. ID Date Data Source [id number] 08/16/2020 12:00:00 AM EDT [facility] Name Value Range Interpretation Code Description Data Valeria rce(s) Supporting Document(s) [facility]2 [facility] This lab was ordered by [facility] and reported by [facility]. ID Date Data Source [id number] 08/10/2020 03:19:00 PM EDT [facility] ([facility], ) Name Value Range Interpretation Code Description Data Valeria rce(s) Supporting Document(s) Glucose [Mass/volume] in Capillary blood by Glucometer 67 mg/dL 80-115 Below low normal [facility] ([facility], ) ID Date Data Source [id number] 08/10/2020 03:19:00 PM EDT [facility] ([facility]) Name Value Range Interpretation Code Description Data Valeria rce(s) Supporting Document(s) Bedside Glucose 67 mg/dL 80-115 [facility] ([facility]) ID Date Data Source [id number] 08/10/2020 01:53:00 PM EDT [facility] ([facility], ) Name Value Range Interpretation Code Description Data Valeria rce(s) Supporting Document(s) Glucose [Mass/volume] in Capillary blood by Glucometer 76 mg/dL 80-115 Below low normal [facility] ([facility]) ID Date Data Source [id number] 08/10/2020 01:53:00 PM EDT [facility] ([facility]) Name Value Range Interpretation Code Description Data Valeria rce(s) Supporting Document(s) Bedside Glucose 76 mg/dL 80-115 [facility] ([facility]) ID Date Data Source [id number] 08/03/2020 12:49:00 PM EDT [facility] Name Value Range Interpretation Code Description Data Valeria rce(s) Supporting Document(s) SARS-CoV-2 (COVID 19) NEGATIVE - SARS-CoV-2 (COVID19) [facility] This lab was ordered by [facility] a nd reported by [facility]. ID Date Data Source [id number] 07/31/2020 10:00:00 AM EDT [facility] Name Value Range Interpretation Code Description Data Valeria rce(s) Supporting Document(s) SARS-CoV-2 (COVID-19) RNA [Presence] in Respiratory specimen by PHUONG with probe detection Not Detected [facility] This lab was ordered by [facility] and reported by [employer] ID Date Data Source [id number] 07/24/2020 10:23:00 AM EDT [facility] Name Value Range Interpretation Code Description Data Valeria rce(s) Supporting Document(s) SARS-CoV-2 (COVID-19) RNA [Presence] in Respiratory specimen by PHUONG with probe detection Not Detected [facility] This lab was ordered by [facility] and reported by [employer] ID Date Data Source [id number] 07/17/2020 10:00:00 AM EDT [facility] Name Value Range Interpretation Code Description Data Valeria rce(s) Supporting Document(s) SARS-CoV-2 (COVID-19) RNA [Presence] in Respiratory specimen by PHUONG with probe detection Not Detected [facility] This lab was ordered by [facility] and reported by [employer]. ID Date Data Source [id number]/13/2020 12:00:00 AM EDT [facility] Name Value Range Interpretation Code Description Data Valeria rce(s) Supporting Document(s) SARS coronavirus 2 Ag Negative [facility] This lab was ordered by [facility] and reported by [facility]. ID Date Data Source [id number] 07/06/2020 12:00:00 AM EDT [facility] Name Value Range Interpretation Code Description Data Valeria rce(s) Supporting Document(s) SARS-CoV2 Rapid Antigen Negative [facility] This lab was ordered by [facility] and reported by [facility]. ID Date Data Source [id number] 06/13/2020 01:00:00 PM EST [facility] Name Value Range Interpretation Code Description Data Valeria rce(s) Supporting Document(s) SARS coronavirus 2 RNA Not Detected [facility] [place] This lab was ordered by [facility] and reported by [facility]. ID Date Data Source [id number] 06/06/2020 01:00:00 PM EST [facility] Name Value Range Interpretation Code Description Data Valeria rce(s) Supporting Document(s) SARS coronavirus 2 RNA Not Detected [facility] [place] This lab was ordered by [facility] and reported by [facility]. ID Date Data Source [id number] 05/30/2020 10:40:00 AM EST [facility] Name Value Range Interpretation Code Description Data Valeria rce(s) Supporting Document(s) SARS coronavirus 2 RNA Not Detected [facility] This lab was ordered by [facility] and reported by [facility]. ID Date Data Source [id number] 05/23/2020 01:00:00 PM EST [facility] Name Value Range Interpretation Code Description Data Valeria rce(s) Supporting Document(s) SARS coronavirus 2 RNA Not Detected [facility] [place] This lab was ordered by [facility] and reported by [facility]. ID Date Data Source [id number] 05/16/2020 01:00:00 PM EST [facility] Name Value Range Interpretation Code Description Data Valeria rce(s) Supporting Document(s) SARS coronavirus 2 RNA Not Detected [facility] [place] This lab was ordered by [facility] and reported by [facility]. ID Date Data Source [id number] 05/09/2020 11:30:00 AM EST [facility] Name Value Range Interpretation Code Description Data Valeria rce(s) Supporting Document(s) SARS coronavirus 2 RNA Not Detected [facility] This lab was ordered by [facility] and reported by [facility]. ID Date Data Source [id number] 05/02/2020 11:00:00 AM EST [facility] Name Value Range Interpretation Code Description Data Valeria rce(s) Supporting Document(s) SARS coronavirus 2 RNA Not Detected [facility] This lab was ordered by [facility] and reported by [facility]. ID Date Data Source [id number] 04/27/2020 01:00:00 PM EST [facility] ([facility], ) Name Value Range Interpretation Code Description Data Valeria rce(s) Supporting Document(s) Glucose [Mass/volume] in Capillary blood by Glucometer 247 mg/dL 80-115 Above high normal [facility] ([facility], ) ID Date Data Source [id number] 04/27/2020 01:00:00 PM EST [facility] ([facility]) Name Value Range Interpretation Code Description Data Valeria rce(s) Supporting Document(s) Bedside Glucose 247 mg/dL 80-115 [facility] ([facility]) ID Date Data Source [id number] 04/25/2020 10:00:00 AM EST [facility] Name Value Range Interpretation Code Description Data Valeria rce(s) Supporting Document(s) SARS coronavirus 2 RNA Not Detected [facility] This lab was ordered by [facility] and reported by [facility]. ID Date Data Source [id number] 04/19/2020 10:15:00 AM EST [facility] Name Value Range Interpretation Code Description Data Valeria rce(s) Supporting Document(s) SARS-CoV-2 (COVID 19) NEGATIVE - SARS-CoV-2 (COVID19) [facility] This lab was ordered by [facility] a nd reported by [facility]. ID Date Data Source [id number] 04/18/2020 11:30:00 AM EST [facility] Name Value Range Interpretation Code Description Data Valeria rce(s) Supporting Document(s) SARS coronavirus 2 RNA Not Detected [facility] This lab was ordered by [facility] and reported by [facility]. ID Date Data Source [id number] 04/13/2020 03:22:00 PM EST [facility] Name Value Range Interpretation Code Description Data Valeria rce(s) Supporting Document(s) SARS coronavirus 2 RNA Not Detected [facility] This lab was ordered by [facility] and reported by [facility]. ID Date Data Source [id number] 04/09/2020 10:30:00 AM EST [facility] Name Value Range Interpretation Code Description Data Valeria rce(s) Supporting Document(s) SARS coronavirus 2 RNA Not Detected [facility] This lab was ordered by [facility] and reported by [facility]. ID Date Data Source [id number] 04/03/2020 09:57:00 AM EST [facility] Name Value Range Interpretation Code Description Data Valeria rce(s) Supporting Document(s) SARS coronavirus 2 RNA [facility] This lab was ordered by [facility] and reported by [facility]. ID Date Data Source [id number] 03/28/2020 11:00:00 AM EST [facility] Name Value Range Interpretation Code Description Data Valeria rce(s) Supporting Document(s) SARS coronavirus 2 RNA [facility] This lab was ordered by [facility] and reported by [facility]. ID Date Data Source [id number] 03/22/2020 10:20:00 AM EST [facility] Name Value Range Interpretation Code Description Data Valeria rce(s) Supporting Document(s) SARS coronavirus 2 RNA [facility] This lab was ordered by [facility] and reported by [facility]. ID Date Data Source [id number] 03/18/2020 01:52:00 PM EST [facility] Name Value Range Interpretation Code Description Data Valeria rce(s) Supporting Document(s) SARS coronavirus 2 RNA [facility] This lab was ordered by [facility] and reported by [facility]. ID Date Data Source [id number] 02/29/2020 12:00:00 PM EST [facility] Name Value Range Interpretation Code Description Data Valeria rce(s) Supporting Document(s) SARS coronavirus 2 RNA [facility] This lab was ordered by [facility] and reported by [facility]. ID Date Data Source [id number] 02/23/2020 12:00:00 PM EST [facility] Name Value Range Interpretation Code Description Data Valeria rce(s) Supporting Document(s) SARS coronavirus 2 RNA [facility] This lab was ordered by [facility] and reported by [facility]. ID Date Data Source [id number] 02/16/2020 07:30:00 AM EST [facility] Name Value Range Interpretation Code Description Data Valeria rce(s) Supporting Document(s) SARS coronavirus 2 RNA [facility] This lab was ordered by [facility] and reported by [facility]. Procedure Social History Code Duration Value Status Description Data Source(s ) Smoking 08/20/2020 12:00:00 AM EDT Patient is a former smoker completed Patient is a former smoker [facility] ([facility]) Vital Signs ID Date Data Source UNK Name Value Range Interpretation Code Description Data Source(s) Systolic blood pressure 146 mm[Hg] 146 mm[Hg] [facility] Body weight 346.06 [lb_av] 346.06 [lb_av] [facility] ([facility]) on chart Body mass index (BMI) [Ratio] 54.2 kg/m2 54.2 k g/m2 [facility] ([facility]) [place] body weight 148 [lb_av] 148 [facility]lb_av[facility] Body weight 156.974 kg 156.974 kg [facility] ([facility]) Body surface area Derived from formula 2.55 m2 2.55 m2 [facility] ([facility]) Diastolic blood pressure 72 mm[Hg] 72 mm[Hg] [facility] ([facility]) Heart rate 81 /min 81 /min [facility] ([facility]) Body height 67 [in_i] 67 [in_i] [facility] ([facility]) 5'7" Heart rate 73 /min 73 /min [facility] ([facility]) Body height 67 [in_i] 67 [in_i] [facility] ([facility]) 5'7" Body weight 325.19 [lb_av] 325.19 [lb_av] [facility] ([facility]) Body mass index (BMI) [Ratio] 50.9 kg/m2 50.9 k g/m2 [facility] [place] body weight 148 [lb_av] 148 [lb_av] [facility] [facility] Body weight 147.505 kg 147.505 kg [facility]) Body surface area Derived from formula 2.49 m2 2.49 m2 [facility] ([facility]) Systolic blood pressure 153 mm[Hg] 153 mm[Hg] M EDENT ([facility]) Diastolic blood pressure 90 mm[Hg] 90 mm[Hg] MED[facility] ([facility]) Body height 67 [in_i] 67 [in_i] [facility] ([facility]) 5'7" Body weight 325.19 [lb_av] 325.19 [lb_av] MEDEN T ([facility]) Body mass index (BMI) [Ratio] 50.9 kg/m2 50.9 k g/m2 [facility] ([facility]) [place] body weight 148 [lb_av] 148 [lb_av] [facility] T ([facility]) Body weight 147.505 kg 147.505 kg [facility] ([facility]) Body surface area Derived from formula 2.49 m2 2.49 m2 [facility]) [place] body weight 148 [lb_av] 148 [lb_av] [facility] T ([facility]) Body height 67 [in_i] 67 [in_i] [facility] ([facility]) 5'7" Body surface area Derived from formula 2.49 m2 2.49 m2 [facility]) Diastolic blood pressure 67 mm[Hg] 67 mm[Hg] [facility] ([facility]) Body weight 147.420 kg 147.420 kg [facility]) Body weight 325.00 [lb_av] 325.00 [lb_av] [facility] T ([facility]) Body mass index (BMI) [Ratio] 50.9 kg/m2 50.9 k g/m2 [facility]) Systolic blood pressure 123 mm[Hg] 123 mm[Hg] [facility] Body weight 147.874 kg 147.874 kg [facility]) Diastolic blood pressure 81 mm[Hg] 81 mm[Hg] [facility]) Body mass index (BMI) [Ratio] 51.1 kg/m2 51.1 k g/m2 [facility]) [place] body weight 148 [lb_av] 148 [lb_av] [facility] T ([facility]) Body surface area Derived from formula 2.49 m2 2.49 m2 [facility] ([facility]) Systolic blood pressure 151 mm[Hg] 151 mm[Hg] [facility] Heart rate 80 /min 80 /min [facility]) Body height 67 [in_i] 67 [in_i] [facility]) 5'7" Body weight 326.00 [lb_av] 326.00 [lb_av] [facility] T ([facility]) Systolic blood pressure 176 mm[Hg] 176 mm[Hg] [facility]) Diastolic blood pressure 81 mm[Hg] 81 mm[Hg] [facility]) Body height 67 [in_i] 67 [in_i] [facility]) 5'7" Body weight 326.00 [lb_av] 326.00 [lb_av] [facility] T ([facility]) Body mass index (BMI) [Ratio] 51.1 kg/m2 51.1 k g/m2 [facility]) Body weight 147.874 kg 147.874 kg [facility]) [place] body weight 148 [lb_av] 148 [facility]_av] [facility] Body surface area Derived from formula 2.49 m2 2.49 m2 [facility]) Diastolic blood pressure 85 mm[Hg] 85 mm[Hg] [facility]) Heart rate 72 /min 72 /min [facility]) Systolic blood pressure 167 mm[Hg] 167 mm[Hg] [facility] Body mass index (BMI) [Ratio] 50.8 kg/m2 50.8 k g/m2 [facility]) Body height 67 [in_i] 67 [in_i] [facility]) 5'7" [place] body weight 148 [lb_av] 148 [lb_av] [facility] Body surface area Derived from formula 2.48 m2 2.48 m2 [facility]) Body weight 324.56 [lb_av] 324.56 [lb_av] [facility] Body weight 147.222 kg 147.222 kg [facility] ([facility])
[2021-03-09 12:43] LABS: ABG BASE EXCESS -7.5 (-2.0-2.0); ABG HCO3 20.2 MEQ/L (22.0-26.0); ABG O2 SATURATION 98.6 % (95.0-99.0); ABG PARTIAL PRESSURE CO2 52.3 mmHg (35.0-45.0); ABG PARTIAL PRESSURE O2 179.9 mmHg (75.0-100.0); ABG STANDARD HCO3 18.3 MEQ/L (22.0-26.0); ABG TOTAL CO2 21.8 MEQ/L (23.0-31.0)
[2021-03-09 12:44] LABS: ABG pH (ARTERIAL) 7.205 UNITS (7.350-7.450)
[2021-03-09 12:59] LABS: BASO # 0.1 10^3/uL (0.0-0.2); BASO % 0.5 % (0.0-1.0); EOS # 0.2 10^3/uL (0.0-0.5); EOS % 1.5 % (0.0-3.0); HEMATOCRIT 29.6 % (42.0-52.0); HEMOGLOBIN 8.8 g/dl (13.5-17.5); LYMPH # 0.8 10^3/uL (1.5-5.0); LYMPH % 5.5 % (24.0-44.0); MEAN CORPUSCULAR HEMOGLOBIN 34.2 pg (27.0-33.0); MEAN CORPUSCULAR HGB CONC 29.7 g/dl (32.0-36.5); MONO # 1.1 10^3/uL (0.0-0.8); MONO % 7.8 % (2.0-8.0); NEUTROPHILS % 84.1 % (36.0-66.0); PLATELET COUNT, AUTOMATED 132 10^3/uL (150-450); RED BLOOD COUNT 2.57 10^6/uL (4.30-6.10); WHITE BLOOD COUNT 14.3 10^3/uL (4.0-10.0)
[2021-03-09 13:00] LABS: MEAN CORPUSCULAR VOLUME 115.2 fl (80.0-96.0)
--- NOTE | 2021-03-09 13:18 | REP ---
INDICATION: fall, left hip pain. COMPARISON: None. TECHNIQUE: AP is obtained. AP and frogleg views of the left hip are provided. Three views. View of the pelvis FINDINGS: The bony pelvic ring is intact. No pelvic or sacral fracture is seen. The femoral heads are smooth and rounded hip joint spaces are preserved. Periarticular soft tissues are unremarkable. No fracture or subluxation is seen in the hip. A diaphyseal fracture of the femur is a visible at the lower edge of the imaging field of view of the hip joint films. IMPRESSION: Femoral diaphyseal fracture noted at the edge of the field of view on the left. No hip or pelvic fracture appreciated. <Electronically signed by Dm Huynh > 03/09/21 [id number]
--- NOTE | 2021-03-09 13:19 | REP ---
INDICATION: trauma. COMPARISON: None. TECHNIQUE: AP and lateral views of the distal femur are provided. FINDINGS: AP and lateral views of the left distal femur demonstrate an obliquely oriented overriding fracture of the distal femoral diaphysis with lateral displacement and considerable override. 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 There is associated soft tissue swelling. Vascular calcification is noted. No opaque foreign body noted. IMPRESSION: Overriding oblique distal femoral diaphyseal fracture. <Electronically signed by Dm Huynh > 03/09/21 [id number]
[2021-03-09 13:20] LABS: ANISOCYTOSIS 2+
--- NOTE | 2021-03-09 13:21 | REP ---
INDICATION: Altered Mental Status. COMPARISON: Comparison chest x-ray March 07, 2021. TECHNIQUE: Portable upright AP chest radiograph. FINDINGS: The lungs are symmetrically aerated and no infiltrate is seen. Cardiomegaly is observed. This is unchanged. 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 No other significant bony abnormality. IMPRESSION: Cardiomegaly as before. No acute infiltrate. <Electronically signed by Dm Huynh > 03/09/21 [id number]
[2021-03-09 13:22] LABS: POLYCHROMASIA 1+; SCHISTOCYTES 1+
[2021-03-09 13:24] LABS: PLATELET ESTIMATE DECREASED (NORMAL)
--- NOTE | 2021-03-09 13:31 | REP ---
INDICATION: fall. COMPARISON: July 05, 2008. TECHNIQUE: Helical scanning is acquired. 5 mm axial images were reformatted. Coronal MPR images were generated. FINDINGS: Bone window settings demonstrate an intact bony calvarium. There is no evidence of skull fracture or incidental bony calvarial lesion. The visualized paranasal sinuses appear clear. No intraorbital abnormality is seen. On soft tissue window setting images; the lateral, third, and fourth ventricles are normal in size and position. Hollis-white differentiation pattern is normal above and below the tentorium. There are is no evidence of intracranial hemorrhage. No mass, edema, infarction, or midline shift is seen. No extra-axial fluid collection is appreciated. There is mild vascular calcification and generalized volume loss. IMPRESSION: Mild vascular calcification and generalized volume loss. Otherwise negative. No evidence of skull fracture or intracranial injury. <Electronically signed by Dm Huynh > 03/09/21 [id number]
--- NOTE | 2021-03-09 13:32 | REP ---
INDICATION: fall. COMPARISON: None. TECHNIQUE: Helical scanning is acquired and overlapping 2 mm high resolution axial images were generated and reviewed at bone and soft tissue window settings. Coronal and sagittal multiplanar re-formations images are generated. FINDINGS: There is no evidence of cervical spine element fracture. No skull base fracture is seen. Cervical vertebral body heights are preserved. Alignment is normal. Facet joints are normally aligned bilaterally at each cervical level on multiplanar re-formations images. There is no evidence of intraspinal or paraspinal hematoma. No extra vertebral abnormality is seen. There is some motion artifact. Discogenic spurring and disc space narrowing are seen throughout the cervical spine. There is mild osteoarthritic facet hypertrophy in the midcervical spine bilaterally. IMPRESSION: No fracture or subluxation seen. Degenerative spondylosis. Some motion artifact. <Electronically signed by Dm Huynh > 03/09/21 [id number]
[2021-03-09 13:39] LABS: ALBUMIN 2.7 GM/DL (3.2-5.2); BILIRUBIN,DIRECT 0.2 MG/DL (0.0-0.2); BILIRUBIN,TOTAL 0.6 MG/DL (0.2-1.0); CALCIUM LEVEL 8.1 MG/DL (8.8-10.2); CREATININE FOR GFR 7.36 MG/DL (0.70-1.30); POTASSIUM SERUM 6.1 MEQ/L (3.5-5.1); THYROID STIMULATING HORMONE 9.15 uIU/ML (0.358-3.740); TOTAL PROTEIN 6.8 GM/DL (6.4-8.2)
[2021-03-09 13:44] LABS: RSV AMPLIFICATION NEGATIVE (NEGATIVE)
[2021-03-09] MEDS ORDERED: NS 500 ML IV ONE ×2 (14:20→16:00)
[2021-03-09] MEDS ORDERED: ISOVUE-370 76% 100ML VIAL As Ordered ONE (14:31)
--- OUTSIDE RECORDS SUMMARY | 2021-03-09 14:32 | CCD ---
Author Author [facility] Organization [facility] Address Unknown Phone Unavailable Care Team Providers Care Facilities Officer Name Role Phone Jayda SMART MD Unavailable [...] Unavailable Patrick, L Calista RPA Unavailable Unavailable Patrikc, L Calista RPA Unavailable Unavailable Patrick, L [...] is protected by Article 27-F of the [facility] Public Health law. If you continue you may have access to information: Regarding HIV / AIDS; Provided by facilities licensed or operated by the [facility] Office of Mental Health; or Provided by the [facility] Office for People With Developmental Disabilities. If such information is present, then the following [facility] mandated warning applies: This information has [...] law may result in a fine or fci sentence or both. A general authorization for the release of medical or other information is NOT sufficient authorization for further disc losure. Encounters Encounter Providers Location Date Indications Data Source(s ) Outpatient Attender: BRYAN Tran/Michael/Ken/Alexia 12/24/2020 03:45:00 PM EDT [facility] ([facility], ) Outpatient Attender: Calista Patrick NANETTE Marc/[place]/Ken/R eindl 08/20/2020 11:00:00 AM EDT [facility] ([facility], ) Outpatient Attender: Calista Patrick NANETTE Marc/[place]/Ken/R eindl 07/30/2020 01:00:00 PM EDT [facility] ([facility], ) Outpatient Attender: Calista Patrick NANETTE Marc/[place]/Ken/R e[place]l 07/23/2020 09:00:00 AM EDT [facility] ([facility], ) Outpatient Attender: Calista Patrick NANETTE Marc/[place]/Ken/R eindl 05/07/2020 12:00:00 PM EST [facility] ([facility], ) Outpatient Attender: Calista Patrick NANETTE Marc/[place]/Ken/R eindl 04/24/2020 08:00:00 AM EST [facility] ([facility], ) Immunizations Vaccine Date Status Description Data Source(s) COVID-19 VACCINE Pfizer 01/22/2021 12:00:00 AM EDT completed [facility] Vaccine Series Complete: YESThis Data wa s Submitted to [facility] Via [facility]. COVID-19 VACCINE Pfizer 04/30/2020 12:00:00 AM EST completed [facility] Vaccine Series Complete: YESThis Data wa s Submitted to [facility] Via [facility]. COVID-19 VACCINE Pfizer 04/09/2020 12:00:00 AM EST completed [facility] Vaccine Series Complete: NOThis Data was Submitted to [facility] Via [facility]. Medications Medication Brand Name Start Date Product Form Dose Route Admi nistrative Instructions Pharmacy Instructions Status Indications Reaction Description Data Source(s) tramadol hydrochloride 50 MG Oral Tablet Tramadol HCL 03/04/2021 12:00:00 AM EST ORAL completed [facility] ([facility]) tramadol hydrochloride 50 MG Oral Tablet Tramadol HCL 02/27/2021 12:00:00 AM EST ORAL active [facility] ([facility]) 300 unit/mL (1.5 mL) [...] type / Coverage type Policy ID Covered democrat ID Covered democrat's relationship to perez Policy Perez Plan Information MEDICARE [id number] SP [id number] A MEDICARE [id number] SP [id number] A MEDICAID [id number] SP [id number] MEDICAID [id number] SP [id number] MEDICAID [id number] SP [id number] MEDICAID [id number] SP [id number] MEDICAID [id number] SP [id number] MEDICAID [id number] SP [id number] MEDICAID [id number] SP [id number] [facility] MED[facility] [id number] SP [id number] F [id number] MEDICARE [id number] SP [id number] [facility] MEDICAID [id number] SP [id number] [place] [id number] SP [id number] MEDICAID [id number] SP [id number] ANS-Medicare Part B [id number] ANSI-Medicaid [id number] MEDICAID M [id number] S [id number] MEDICARE C [id number] S [id number] A SELF PAY UNAVAILABLE UNAVAILA BLE Problems, Conditions, and Diagnoses No Information Surgeries/Procedures Procedure Description Date Indications Data Source(s) SBSQ NURSING FACIL CARE/DAY NEW PROBLEM 25 MIN 021 12:00:00 AM EDT R[facility] ([facility]) SBSQ NURSING FACIL CARE/DAY NEW PROBLEM 25 MIN 021 12:00:00 AM EDT [facility] ([facility]) OFFICE OUTPATIENT VISIT 15 MINUTES 12/24/2020 12:00:00 AM EDT [facility] ([facility]) OFFICE OUTPATIENT VISIT 15 MINUTES 08/20/2020 12:00:00 AM EDT [facility] ([facility]) Dialysis Circuit W/ Transluminal Balloon Angioplasty, Perip eral 08/10/2020 12:00:00 AM EDT [facility] ([facility]) Moderate Sedation Services; Same Phys Intl 15 Mins; PT >= 5 Years 08/10/2020 12:00:00 AM EDT [facility] ([facility]) OFFICE OUTPATIENT VISIT 15 MINUTES 07/30/2020 12:00:00 AM EDT [facility] ([facility]) OFFICE OUTPATIENT VISIT 15 MINUTES 07/23/2020 12:00:00 AM EDT [facility] ([facility]) Dialysis Circuit W/ Transluminal Balloon Angioplasty, Perip eral 04/27/2020 12:00:00 AM EST [facility] ([facility]) Moderate Sedation Services; Same Phys Intl 15 Mins; PT >= 5 Years 04/27/2020 12:00:00 AM EST [facility] ([facility]) Results ID Date Data Source [id number] 03/07/2021 03:25:00 PM EST [facility] ([facility]) Name Value Range Interpretation Code Description Data Valeria rce(s) Supporting Document(s) Laboratory test finding (navigational concept) 27.0 % 38.0-51.0 [facility] ([facility]) Laboratory test finding (navigational concept) 139 meq/L 136-145 [facility] ([facility]) Laboratory test finding (navigational concept) 210 mg/dL 70-105 [facility] ([facility]) Laboratory test finding (navigational concept) 3.8 meq/L 3.5-5.1 [facility] ([facility]) Laboratory test finding (navigational concept) 4.2 mg/dL 4.5-5.3 [facility] ([facility]) Laboratory test finding (navigational concept) 29.0 MM/L 23.0-27.0 [facility] Laboratory test finding (navigational concept) 97 meq/L 98-109 [facility] Laboratory test finding (navigational concept) 4.7 mg/dL 0.6-1.3 [facility] Laboratory test finding (navigational concept) 36 mg/dL 8-26 [facility] ID Date Data Source [id number] 03/07/2021 03:05:00 PM EST [facility] Name Value Range Interpretation Code Description Data Valeria rce(s) Supporting Document(s) Influenza B Amplification Laboratory test result [facility] ([facility]) Negative results do not preclude influen za or RSV virus infection and should not be used as the sole basis for treatment or other patient management decisions. Influenza A Amplification Laboratory test result [facility] Negative results do not preclude influen za or RSV virus infection and should not be used as the sole basis for treatment or other patient management decisions. Laboratory test finding (navigational concept) Laboratory test result [facility] ([facility]) A false negative result may occur if [...] test. DISCLAIMER: Testing was performed using the [employer] SARS-CoV-2 test. This test was developed and its performance characteristics determined by [employer]. This test has not been FDA cleared [...] sooner. RSV Amplification Laboratory test result [facility] ([facility]) Negative results do not preclude influen za or RSV virus infection and should not be used as the sole basis for treatment or other patient management decisions. ID Date Data Source [id number] 03/07/2021 03:05:00 PM EST [facility] ([facility]) Name Value Range Interpretation Code Description Data Valeria rce(s) Supporting Document(s) Lipoprotein lipase [Enzymatic activity/volume] in Serum or P lasma 187 U/L 73-393 [facility] ID Date Data Source [id number] 03/07/2021 03:05:00 PM EST [facility] Name Value Range Interpretation Code Description Data Valeria rce(s) Supporting Document(s) Ast/Sgot 32 U/L 7-37 [facility] ([facility]) Alt/SGPT 24 U/L 12-78 [facility] ([facility]) Bilirubin,Total 0.5 mg/dL 0.2-1.0 [facility] ([facility]) Alkaline Phosphatase 158 U/L 45-117 [facility] ([facility]) Bilirubin,Direct 0.1 mg/dL 0.0-0.2 [facility] ([facility]) Total Protein 7.0 GM/DL 6.4-8.2 [facility] ([facility]) Albumin/Globulin Ratio 0.6 [facility] ([facility]) Albumin 2.7 GM/DL 3.2-5.2 [facility] ([facility]) ID Date Data Source [id number] 03/07/2021 03:05:00 PM EST [facility] ([facility]) Name Value Range Interpretation Code Description Data Valeria rce(s) Supporting Document(s) Lactate [Mass/volume] in Serum or Plasma 1.0 mmol/L 0.4-2.0 [facility] ([facility]) Y/N query for Sepsis Lactate Rule: Y ID Date Data Source [id number] 03/07/2021 03:05:00 PM EST [facility] ([facility]) Name Value Range Interpretation Code Description Data Valeria rce(s) Supporting Document(s) White Blood Count 7.7 10 4.0-10.0 [facility] ([facility]) Hemoglobin 8.4 g/dL 13.5-17.5 [facility] Red Blood Count 2.47 10 4.30-6.10 [facility] ([facility]) Mean Corpuscular Volume 110.1 fl 80.0-96.0 [facility] ([facility]) Hematocrit 27.2 % 42.0-52.0 [facility] Mean Corpuscular Hemoglobin 34.0 pg 27.0-33.0 ME DENT ([facility]) Mean Corpuscular HGB Conc 30.9 g/dL 32.0-36.5 MEDE NT ([facility]) Platelet Count, Automated 111 10 150-450 MEDE NT ([facility]) Red Cell Distribution Width 18.3 % 11.5-14.5 ME D[facility] ([facility]) Mes[place] % 12.4 % 2.0-8.0 [facility]) Neutrophils % 65.2 % 36.0-66.0 [facility] ([facility]) Lymph % 9.4 % 24.0-44.0 [facility] Eos % 11.6 % 0.0-3.0 [facility]) Baso % 0.7 % 0.0-1.0 [facility]) Nucleated Red Blood Cell % 0.0 % 0-0 MED ENT ([facility]) Immature Granulocyte % 0.7 % 0-3.0 [facility] ([facility]) Lymph # 0.7 10 1.5-5.0 [facility] Neutrophils # 5.0 10 1.5-8.5 [facility] Mesa # 1.0 10 0.0-0.8 [facility]) Eos # 0.9 10 0.0-0.5 [facility] Baso # 0.1 10 0.0-0.2 [facility] ID Date Data Source [id number] 02/27/2021 02:49:00 AM EST [facility] Name Value Range Interpretation Code Description Data Valeria rce(s) Supporting Document(s) SARS coronavirus 2 RNA [Presence] in Res piratory specimen by PHUONG with probe detection NEGATIVE [facility] This lab was ordered by [facility] a nd reported by [facility]. ID Date Data Source [id number] 02/23/2021 04:26:00 PM EST [facility] Name Value Range Interpretation Code Description Data Valeria rce(s) Supporting Document(s) SARS coronavirus 2 RNA [Presence] in Res piratory specimen by PHUONG with probe detection NEGATIVE - SARS-CoV-2 (COVID19) [facility] This lab was ordered by [facility] a nd reported by [facility]. ID Date Data Source [id number] 02/08/2021 02:09:00 PM EDT [facility] Name Value Range Interpretation Code Description Data Valeria rce(s) Supporting Document(s) SARS-CoV-2 (COVID 19) NEGATIVE - SARS-CoV-2 (COVID19) [facility] This lab was ordered by [facility] a nd reported by [facility]. ID Date Data Source [id number] 08/16/2020 12:00:00 AM EDT [facility] Name Value Range Interpretation Code Description Data Valeria rce(s) Supporting Document(s) SARS-CoV2 Rapid Antigen Negative [facility] by [facility] and reported by [facility]. ID Date Data Source [id number] 08/10/2020 03:19:00 PM EDT [facility] ([facility], ) Name Value Range Interpretation Code Description Data Valeria rce(s) Supporting Document(s) Glucose [Mass/volume] in Capillary blood by Glucometer 67 mg/dL 80-115 Below low normal [facility] ([facility], ) ID Date Data Source [id number] 08/10/2020 03:19:00 PM EDT [facility] ([facility]) Name Value Range Interpretation Code Description Data Valeria rce(s) Supporting Document(s) Bedside Glucose 67 mg/dL 80-115 [facility] ([facility]) ID Date Data Source [id number] 08/10/2020 01:53:00 PM EDT [facility] ([facility], ) Name Value Range Interpretation Code Description Data Valeria rce(s) Supporting Document(s) Glucose [Mass/volume] in Capillary blood by Glucometer 76 mg/dL 80-115 Below low normal [facility] ([facility]) ID Date Data Source [id number] 08/10/2020 01:53:00 PM EDT [facility] ([facility]) Name Value Range Interpretation Code Description Data Valeria rce(s) Supporting Document(s) Bedside Glucose 76 mg/dL 80-115 [facility] ([facility]) ID Date Data Source [id number] 08/03/2020 12:49:00 PM EDT [facility] Name Value Range Interpretation Code Description Data Valeria rce(s) Supporting Document(s) SARS-CoV-2 (COVID 19) NEGATIVE - SARS-CoV-2 (COVID19) [facility] This lab was ordered by [facility] a nd reported by [facility]. ID Date Data Source [id number] 07/31/2020 10:00:00 AM EDT [facility] Name Value Range Interpretation Code Description Data Valeria rce(s) Supporting Document(s) SARS-CoV-2 (COVID-19) RNA [Presence] in Respiratory specimen by PHUONG with probe detection Not Detected [facility] This lab was ordered by [facility] and reported by [employer]. ID Date Data Source [id number] 07/24/2020 10:23:00 AM EDT [facility] Name Value Range Interpretation Code Description Data Valeria rce(s) Supporting Document(s) SARS-CoV-2 (COVID-19) RNA [Presence] in Respiratory specimen by PHUONG with probe detection Not Detected [facility] This lab was ordered by [facility] and reported by [employer] ID Date Data Source [id number] 07/17/2020 10:00:00 AM EDT [facility] Name Value Range Interpretation Code Description Data Valeria rce(s) Supporting Document(s) SARS-CoV-2 (COVID-19) RNA [Presence] in Respiratory specimen by PHUONG with probe detection Not Detected [facility] This lab was ordered by [facility] and reported by [employer]. ID Date Data Source [id number]/13/2020 12:00:00 AM EDT [facility] Name Value Range Interpretation Code Description Data Valeria rce(s) Supporting Document(s) SARS coronavirus 2 Ag Negative [facility] This lab was ordered by [facility] and reported by [facility]. ID Date Data Source [id number] 07/06/2020 12:00:00 AM EDT [facility] Name Value Range Interpretation Code Description Data Valeria rce(s) Supporting Document(s) SARS-CoV2 Rapid Antigen Negative [facility] This lab was ordered by [facility] and reported by [facility]. ID Date Data Source [id number] 06/13/2020 01:00:00 PM EST [facility] Name Value Range Interpretation Code Description Data Valeria rce(s) Supporting Document(s) SARS coronavirus 2 RNA Not Detected [facility] This lab was ordered by [facility] and reported by [facility]. ID Date Data Source [id number] 06/06/2020 01:00:00 PM EST [facility] Name Value Range Interpretation Code Description Data Valeria rce(s) Supporting Document(s) SARS coronavirus 2 RNA Not Detected [facility] [place] This lab was ordered by [facility] and reported by [facility]. ID Date Data Source [id number] 05/30/2020 10:40:00 AM EST [facility] Name Value Range Interpretation Code Description Data Valeria rce(s) Supporting Document(s) SARS coronavirus 2 RNA Not Detected [facility] This lab was ordered by [facility] and reported by [facility]. ID Date Data Source [id number] 05/23/2020 01:00:00 PM EST [facility] Name Value Range Interpretation Code Description Data Valeria rce(s) Supporting Document(s) SARS coronavirus 2 RNA Not Detected [facility] [place] This lab was ordered by [facility] and reported by [facility]. ID Date Data Source [id number] 05/16/2020 01:00:00 PM EST [facility] Name Value Range Interpretation Code Description Data Valeria rce(s) Supporting Document(s) SARS coronavirus 2 RNA Not Detected [facility] [place] This lab was ordered by [facility] and reported by [facility]. ID Date Data Source [id number] 05/09/2020 11:30:00 AM EST [facility] Name Value Range Interpretation Code Description Data Valeria rce(s) Supporting Document(s) SARS coronavirus 2 RNA Not Detected [facility] [place] This lab was ordered by [facility] and reported by [facility]. ID Date Data Source [id number] 05/02/2020 11:00:00 AM EST [facility] Name Value Range Interpretation Code Description Data Valeria rce(s) Supporting Document(s) SARS coronavirus 2 RNA Not Detected [facility] [place] This lab was ordered by [facility] and reported by [facility]. ID Date Data Source [id number] 04/27/2020 01:00:00 PM EST [facility] ([facility], ) Name Value Range Interpretation Code Description Data Valeria rce(s) Supporting Document(s) Glucose [Mass/volume] in Capillary blood by Glucometer 247 mg/dL 80-115 Above high normal [facility] ([facility], ) ID Date Data Source [id number] 04/27/2020 01:00:00 PM EST [facility] ([facility]) Name Value Range Interpretation Code Description Data Valeria rce(s) Supporting Document(s) Bedside Glucose 247 mg/dL 80-115 [facility] ([facility]) ID Date Data Source [id number] 04/25/2020 10:00:00 AM EST [facility] Name Value Range Interpretation Code Description Data Valeria rce(s) Supporting Document(s) SARS coronavirus 2 RNA Not Detected [facility] This lab was ordered by [facility] and reported by [facility]. ID Date Data Source [id number] 04/19/2020 10:15:00 AM EST [facility] Name Value Range Interpretation Code Description Data Valeria rce(s) Supporting Document(s) SARS-CoV-2 (COVID 19) NEGATIVE - SARS-CoV-2 (COVID19) [facility] This lab was ordered by [facility] a nd reported by [facility]. ID Date Data Source [id number] 04/18/2020 11:30:00 AM EST [facility] Name Value Range Interpretation Code Description Data Valeria rce(s) Supporting Document(s) SARS coronavirus 2 RNA Not Detected [facility] This lab was ordered by [facility] and reported by [facility]. ID Date Data Source [id number] 04/13/2020 03:22:00 PM EST [facility] Name Value Range Interpretation Code Description Data Valeria rce(s) Supporting Document(s) SARS coronavirus 2 RNA Not Detected [facility] [place] This lab was ordered by [facility] and reported by [facility]. ID Date Data Source [id number] 04/09/2020 10:30:00 AM EST [facility] Name Value Range Interpretation Code Description Data Valeria rce(s) Supporting Document(s) SARS coronavirus 2 RNA Not Detected [facility] [place] This lab was ordered by [facility] and reported by [facility]. ID Date Data Source [id number] 04/03/2020 09:57:00 AM EST [facility] Name Value Range Interpretation Code Description Data Valeria rce(s) Supporting Document(s) SARS coronavirus 2 RNA [facility] This lab was ordered by [facility] and reported by [facility]. ID Date Data Source [id number] 03/28/2020 11:00:00 AM EST [facility] Name Value Range Interpretation Code Description Data Valeria rce(s) Supporting Document(s) SARS coronavirus 2 RNA [facility] This lab was ordered by [facility] and reported by [facility]. ID Date Data Source [id number] 03/22/2020 10:20:00 AM EST [facility] Name Value Range Interpretation Code Description Data Valeria rce(s) Supporting Document(s) SARS coronavirus 2 RNA [facility] This lab was ordered by [facility] and reported by [facility]. ID Date Data Source [id number] 03/18/2020 01:52:00 PM EST [facility] Name Value Range Interpretation Code Description Data Valeria rce(s) Supporting Document(s) SARS coronavirus 2 RNA [facility] This lab was ordered by [facility] and reported by [facility]. ID Date Data Source [id number] 02/29/2020 12:00:00 PM EST [facility] Name Value Range Interpretation Code Description Data Valeria rce(s) Supporting Document(s) SARS coronavirus 2 RNA [facility] This lab was ordered by [facility] and reported by [facility]. ID Date Data Source [id number] 02/23/2020 12:00:00 PM EST [facility] Name Value Range Interpretation Code Description Data Valeria rce(s) Supporting Document(s) SARS coronavirus 2 RNA [facility] This lab was ordered by [facility] and reported by [facility]. ID Date Data Source [id number] 02/16/2020 07:30:00 AM EST [facility] Name Value Range Interpretation Code Description Data Valeria rce(s) Supporting Document(s) SARS coronavirus 2 RNA [facility] This lab was ordered by [facility] and reported by [facility]. Procedure Social History Code Duration Value Status Description Data Source(s ) Smoking 08/20/2020 12:00:00 AM EDT Patient is a former smoker completed Patient is a former smoker [facility] ([facility]) Vital Signs ID Date Data Source UNK Name Value Range Interpretation Code Description Data Source(s) Systolic blood pressure 146 mm[Hg] 146 mm[Hg] [facility] Diastolic blood pressure 72 mm[Hg] 72 mm[Hg] [facility] ([facility]) Heart rate 81 /min 81 /min [facility] ([facility]) Body height 67 [in_i] 67 [in_i] [facility] ([facility]) 5'7" Body weight 346.06 [lb_av] 346.06 [lb_av] [facility] ([facility]) on chart Body mass index (BMI) [Ratio] 54.2 kg/m2 54.2 k g/m2 [facility] ([facility]) [place] body weight 148 [lb_av] 148 [lb_av] [facility] Body weight 156.974 kg 156.[address] [facility] ([facility]) Body surface area Derived from formula 2.55 m2 2.[address] [facility] ([facility]) Heart rate 73 /min 73 /min [facility] ([facility]) Body height 67 [in_i] 67 [in_i] [facility] ([facility]) 5'7" Body weight 325.19 [lb_av] 325.19 [lb_av] [facility] ([facility]) Body mass index (BMI) [Ratio] 50.9 kg/m2 50.9 k g/m2 [facility] ([facility]) [place] body weight 148 [lb_av] 148 [lb_av] [facility] ([facility]) Body weight 147.505 kg 147.[address] [facility] ([facility]) Body surface area Derived from formula 2.49 m2 2.[address] [facility] ([facility]) Systolic blood pressure 153 mm[Hg] 153 mm[Hg] [facility] ([facility]) Diastolic blood pressure 90 mm[Hg] 90 mm[Hg] [facility] ([facility]) Body height 67 [in_i] 67 [in_i] [facility] 5'7" Body weight 325.19 [lb_av] 325.19 [lb_av] [facility] ([facility]) Body mass index (BMI) [Ratio] 50.9 kg/m2 50.9 k g/m2 [facility] ([facility]) [place] body weight 148 [lb_av] 148 [lb_av] [facility] ([facility]) Body weight 147.505 kg 147.[address] [facility] ([facility]) Body surface area Derived from formula 2.49 m2 2.[address] [facility] ([facility]) Body height 67 [in_i] 67 [in_i] [facility] ([facility]) 5'7" [place] body weight 148 [lb_av] 148 [lb_av] [facility] ([facility]) Body surface area Derived from formula 2.49 m2 2.[address] [facility] ([facility]) Diastolic blood pressure 67 mm[Hg] 67 mm[Hg] [facility] ([facility]) Body weight 147.420 kg 147.[address] [facility] ([facility]) Body weight 325.00 [lb_av] 325.00 [lb_av] [facility] ([facility]) Body mass index (BMI) [Ratio] 50.9 kg/m2 50.9 k g/m2 [facility] ([facility]) Systolic blood pressure 123 mm[Hg] 123 mm[Hg] [facility]) Body weight 147.874 kg 147.[address] [facility] ([facility]) [place] body weight 148 [lb_av] 148 [lb_av] [facility] ([facility]) Diastolic blood pressure 81 mm[Hg] 81 mm[Hg] [facility] ([facility]) Body mass index (BMI) [Ratio] 51.1 kg/m2 51.1 k g/m2 [facility] ([facility]) Body surface area Derived from formula 2.49 m2 2.[address] [facility] ([facility]) Systolic blood pressure 151 mm[Hg] 151 mm[Hg] [facility]) Heart rate 80 /min 80 /min [facility] ([facility]) Body height 67 [in_i] 67 [in_i] [facility] ([facility]) 5'7" Body weight 326.00 [lb_av] 326.00 [lb_av] [facility] ([facility]) Systolic blood pressure 176 mm[Hg] 176 mm[Hg] [facility]) Diastolic blood pressure 81 mm[Hg] 81 mm[Hg] [facility] ([facility]) Body height 67 [in_i] 67 [in_i] [facility] ([facility]) 5'7" Body weight 326.00 [lb_av] 326.00 [lb_av] [facility] ([facility]) Body mass index (BMI) [Ratio] 51.1 kg/m2 51.1 k g/m2 [facility] ([facility]) Body weight 147.874 kg 147.[address] [facility] ([facility]) [place] body weight 148 [lb_av] 148 [lb_av] [facility] ([facility]) Body surface area Derived from formula 2.49 m2 2.[address] [facility] ([facility]) Diastolic blood pressure 85 mm[Hg] 85 mm[Hg] [facility] ([facility]) Systolic blood pressure 167 mm[Hg] 167 mm[Hg] [facility]) Heart rate 72 /min 72 /min [facility] ([facility]) Body mass index (BMI) [Ratio] 50.8 kg/m2 50.8 k g/m2 [facility] ([facility]) Body weight 324.56 [lb_av] 324.56 [lb_av] [facility] ([facility]) Body height 67 [in_i] 67 [in_i] [facility] ([facility]) 5'7" [place] body weight 148 [lb_av] 148 [lb_av] [facility] ([facility]) Body weight 147.222 kg 147.[address] [facility] ([facility]) Body surface area Derived from formula 2.48 m2 2.[address] [facility] ([facility])
[2021-03-09] MEDS ORDERED: cefTRIAXone SOD 2 GM in D5W MINI-BAG PLUS 50 ML IV ONE (15:10)
--- NOTE | 2021-03-09 15:12 | REP ---
INDICATION: fracture. COMPARISON: Today's radiographs. TECHNIQUE: Helical scanning is performed through the left femur and 3 mm axial images are re-formatted. Coronal and sagittal MPR images are generated. FINDINGS: There is osteoarthritis at the knee and there is vascular calcification. No proximal femur fracture is seen. The visualized left hemipelvis appears intact. There is dystrophic ossification in the periarticular soft tissues anterior to the right femoral neck. This is well corticated and does not appear to be a fracture fragment. There is a distal femoral diaphyseal fracture with comminution. There is slight override and there is approximately 90 degrees of clockwise rotational deformity of the distal fragment relative to the proximal. There is associated soft tissue swelling but no demario hematoma is appreciated. No hematoma is seen surrounding the femoropopliteal arterial vasculature. IMPRESSION: Obliquely oriented comminuted fracture of the distal femoral diaphysis with 9 degrees of rotational deformity and slight override. <Electronically signed by Dm Huynh > 03/09/21 [id number]
--- NOTE | 2021-03-09 15:24 | REP ---
INDICATION: hypoxia/hypotension/femur fracture. COMPARISON: Comparison chest CT study is from February 23, 2021. TECHNIQUE: Contrast dose: 75 ML of Isovue [address] technique: Helical scanning is acquired and overlapping 1.5 mm and contiguous 3 mm axial images are reformatted. In addition, maximum intensity projection and multiplanar re-formation images are generated in sagittal and coronal imaging projections. FINDINGS: There is good opacification in the pulmonary arterial tree. There is no evidence of vessel cut off or filling defect to suggest pulmonary embolus. Homogeneous opacity is seen in the thoracic aorta. There is no evidence of aneurysm or dissection. There is no evidence of intravascular fat or other filling defect. No pleural or pericardial effusion is seen. There are patchy areas of consolidation in the right lower lobe, left upper lobe, right middle lobe, and to some there is peribronchial thickening degree the left lower lobe. In these regions along with some degree of platelike atelectatic change. No endobronchial disease is seen. No hilar or mediastinal mass is observed. In the upper abdomen, there is mild diffuse abdominal ascites. This is a new finding when compared with the February 23, 2021 study. There is four-chamber cardiac enlargement. There is flattening of the interventricular septum suggesting right heart failure along with some reflux of contrast opacified blood from the right atrium into the hepatic veins. These findings are unchanged from February 23, 2021. No fracture is seen. There is an abnormal disc space in the upper thoracic spine characterized by irregular erosive changes the endplates and sclerosis. This is unchanged from 23 February 2021 but is new when compared to the prior study from 2016. There is some paravertebral swelling associated with this and I cannot exclude infectious discitis. This appears to be the T5-6 disc level. IMPRESSION: No CT evidence of pulmonary thromboembolic disease. Patchy bilateral infiltrates are noted with some degree of atelectasis. There is upper abdominal ascites. The disc at the T5-6 level in the thoracic spine is abnormal question infectious discitis. <Electronically signed by Dm Huynh > 03/09/21 [id number]
[2021-03-09] MEDS ORDERED: NOREPINEPHRINE BITARTRATE 8 MG in D5W 492 ML IV SCH (16:00)
[2021-03-09] MEDS ORDERED: NOREPINEPHRINE 4 MG/4 ML AMP As Ordered ONE (16:04)
[2021-03-09] MEDS ORDERED: CARV3.12 PO (16:05)
[2021-03-09] MEDS ORDERED: ELIQ5TAB PO (16:05)
[2021-03-09] MEDS ORDERED: INSUHUMDS SC (16:05)
[2021-03-09] MEDS ORDERED: BISA10SU4 PR (16:05)
[2021-03-09] MEDS ORDERED: NYST1POW9 TOP (16:05)
[2021-03-09] MEDS ORDERED: TOUJ1.2I SC (16:08)
[2021-03-09] MEDS ORDERED: HOME MED LIST COMPLETE! XX SCH (16:10)
[2021-03-09 16:11] LABS: ABG BASE EXCESS -4.6 (-2.0-2.0); ABG O2 SATURATION 85.2 % (95.0-99.0); ABG PARTIAL PRESSURE O2 66.1 mmHg (75.0-100.0); ABG STANDARD HCO3 20.5 MEQ/L (22.0-26.0); ABG TOTAL CO2 27.3 MEQ/L (23.0-31.0)
[2021-03-09 16:13] LABS: ABG PARTIAL PRESSURE CO2 75.8 mmHg (35.0-45.0); ABG pH (ARTERIAL) 7.136 UNITS (7.350-7.450)
--- NOTE | 2021-03-09 16:38 | ECGEPIP ---
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
--- OUTSIDE RECORDS SUMMARY | 2021-03-09 17:07 | CCD ---
Author Author [facility] Organization [facility] Address Unknown Phone Unavailable Care Team Providers Care Tooth Polisher Name Role Phone Jayda SMART MD Unavailable [...] is protected by Article 27-F of the [facility] Public Health law. If you continue you may have access to information: Regarding HIV / AIDS; Provided by facilities licensed or operated by the [facility] Office of Mental Health; or Provided by the [facility] Office for People With Developmental Disabilities. If such information is present, then the following [facility] mandated warning applies: This information has been [...] law may result in a fine or long term sentence or both. A general authorization for the release of medical or other information is NOT sufficient authorization for further disc losure. Encounters Encounter Providers Location Date Indications Data Source(s ) Outpatient Attender: BRYAN Tran/Michael/Ken/Alexia 12/24/2020 03:45:00 PM EDT [facility] ([facility], ) Outpatient Attender: Calista Patrick NANETTE Marc/[place]/Ken/R eindl 08/20/2020 11:00:00 AM EDT [facility] ([facility], ) Outpatient Attender: Calista Patrick NANETTE Marc/[place]/Ken/R e[place]l 07/30/2020 01:00:00 PM EDT [facility] ([facility], ) Outpatient Attender: Calista Patrick NANETTE Marc/[place]/Ken/R eindl 07/23/2020 09:00:00 AM EDT [facility] ([facility], ) Outpatient Attender: Calista Patrick NANETTE Marc/[place]/Ken/R eindl 05/07/2020 12:00:00 PM EST [facility] ([facility], ) Outpatient Attender: Calista Patrick NANETTE Marc/[place]/Ken/R eindl 04/24/2020 08:00:00 AM EST [facility] ([facility], ) Immunizations Vaccine Date Status Description Data Source(s) COVID-19 VACCINE Pfizer 01/22/2021 12:00:00 AM EDT completed [facility] Vaccine Series Complete: YESThis Data wa s Submitted to [facility] Via [employer] COVID-19 VACCINE Pfizer 04/30/2020 12:00:00 AM EST completed [facility] Vaccine Series Complete: YESThis Data wa s Submitted to [facility] Via [employer] COVID-19 VACCINE Pfizer 04/09/2020 12:00:00 AM EST completed [facility] Vaccine Series Complete: NOThis Data was Submitted to [facility] Via [employer] Medications Medication Brand Name Start Date Product Form Dose Route Admi nistrative Instructions Pharmacy Instructions Status Indications Reaction Description Data Source(s) tramadol hydrochloride 50 MG Oral Tablet Tramadol HCL 03/04/2021 12:00:00 AM EST ORAL completed [facility] ([facility]) tramadol hydrochloride 50 MG Oral Tablet Tramadol HCL 02/27/2021 12:00:00 AM EST ORAL active [facility] ([facility]) 300 unit/mL (1.5 mL) 05/19/2020 12:00:00 AM EST insulin pen 4 INJECT 72 UNITS UNDER THE SKIN ONCE DAILY INJECT 72 UNITS UNDER THE SKIN ONCE DAILY SOLD: 05/19/2020 [facility] 300 unit/mL (1.5 mL) 04/03/2020 12:00:00 AM EST insulin pen 1 INJECT 72 UNITS UNDER THE SKIN DAILY INJECT 72 UNITS UNDER THE SKIN DAILY SOLD: 04/03/2020 [facility] Insurance Providers Payer name Policy type / Coverage type Policy ID Covered republican ID Covered republican's relationship to perez Policy Perez Plan Information MEDICARE [id number] SP [id number] A MEDICARE [id number] SP [id number] A MEDICAID [id number] SP [id number] MEDICAID [id number] SP [id number] MEDICAID [id number] SP [id number] MEDICAID [id number] SP [id number] MEDICAID [id number] SP [id number] MEDICAID [id number] SP [id number] MEDICAID [id number] SP [id number] [facility] MEDICAID [id number] SP [id number] F [id number] MEDICARE [id number] SP [id number] [facility] MEDICAID [id number] SP [id number] [place] [id number] SP [id number] MEDICAID [id number] SP [id number] ANS-Medicare Part B [id number] ANSI-Medicaid [id number] MEDICAID [id number] S [id number] MEDICARE C [id number] S [id number] A SELF PAY UNAVAILABLE UNAVAILA BLE Problems, Conditions, and Diagnoses No Information Surgeries/Procedures Procedure Description Date Indications Data Source(s) SBSQ NURSING FACIL CARE/DAY NEW PROBLEM 25 MIN 021 12:00:00 AM EDT [facility] ([facility]) SBSQ NURSING FACIL CARE/DAY NEW PROBLEM 25 MIN 021 12:00:00 AM EDT [facility] ([facility]) OFFICE OUTPATIENT VISIT 15 MINUTES 12/24/2020 12:00:00 AM EDT [facility] ([facility]) OFFICE OUTPATIENT VISIT 15 MINUTES 08/20/2020 12:00:00 AM EDT [facility] ([facility]) Dialysis Circuit W/ Transluminal Balloon Angioplasty, Perip eral 08/10/2020 12:00:00 AM EDT [facility] ([facility]) Moderate Sedation Services; Same Phys Intl 15 Mins; PT >= 5 Years 08/10/2020 12:00:00 AM EDT [facility] ([facility]) OFFICE OUTPATIENT VISIT 15 MINUTES 07/30/2020 12:00:00 AM EDT [facility] ([facility]) OFFICE OUTPATIENT VISIT 15 MINUTES 07/23/2020 12:00:00 AM EDT [facility] ([facility]) Dialysis Circuit W/ Transluminal Balloon Angioplasty, Perip eral 04/27/2020 12:00:00 AM EST [facility] ([facility]) Moderate Sedation Services; Same Phys Intl 15 Mins; PT >= 5 Years 04/27/2020 12:00:00 AM EST [facility] ([facility]) Results ID Date Data Source [id number] 03/07/2021 03:25:00 PM EST [facility] ([facility]) Name Value Range Interpretation Code Description Data Valeria rce(s) Supporting Document(s) Laboratory test finding (navigational concept) 27.0 % 38.0-51.0 [facility] ([facility]) Laboratory test finding (navigational concept) 139 meq/L 136-145 [facility] ([facility]) Laboratory test finding (navigational concept) 210 mg/dL 70-105 [facility] ([facility]) Laboratory test finding (navigational concept) 3.8 meq/L 3.5-5.1 [facility] ([facility]) Laboratory test finding (navigational concept) 4.2 mg/dL 4.5-5.3 [facility] ([facility]) Laboratory test finding (navigational concept) 29.0 MM/L 23.0-27.0 [facility] Laboratory test finding (navigational concept) 97 meq/L 98-109 [facility] Laboratory test finding (navigational concept) 4.7 mg/dL 0.6-1.3 [facility] Laboratory test finding (navigational concept) 36 mg/dL 8-26 [facility] ID Date Data Source [id number] 03/07/2021 03:05:00 PM EST [facility] Name Value Range Interpretation Code Description Data Valeria rce(s) Supporting Document(s) Influenza B Amplification Laboratory test result [facility] ([facility]) Negative results do not preclude influen za or RSV virus infection and should not be used as the sole basis for treatment or other patient management decisions. Influenza A Amplification Laboratory test result [facility] Negative results do not preclude influen za or RSV virus infection and should not be used as the sole basis for treatment or other patient management decisions. Laboratory test finding (navigational concept) Laboratory test result [facility] ([facility]) A false negative result may occur [...] test. DISCLAIMER: Testing was performed using the [employer] SARS-CoV-2 test. This test was developed and its performance characteristics determined by [employer]. This test has not been FDA cleared [...] sooner. RSV Amplification Laboratory test result [facility] ([facility]) Negative results do not preclude influen za or RSV virus infection and should not be used as the sole basis for treatment or other patient management decisions. ID Date Data Source [id number] 03/07/2021 03:05:00 PM EST [facility] ([facility]) Name Value Range Interpretation Code Description Data Valeria rce(s) Supporting Document(s) Lipoprotein lipase [Enzymatic activity/volume] in Serum or P lasma 187 U/L 73-393 [facility] ID Date Data Source [id number] 03/07/2021 03:05:00 PM EST [facility] ([facility] Name Value Range Interpretation Code Description Data Valeria rce(s) Supporting Document(s) Ast/Sgot 32 U/L 7-37 [facility] ([facility]) Alt/SGPT 24 U/L 12-78 [facility] ([facility]) Bilirubin,Total 0.5 mg/dL 0.2-1.0 [facility] ([facility]) Alkaline Phosphatase 158 U/L 45-117 [facility] ([facility]) Bilirubin,Direct 0.1 mg/dL 0.0-0.2 [facility] ([facility]) Total Protein 7.0 GM/DL 6.4-8.2 [facility] ([facility]) Albumin/Globulin Ratio 0.6 [facility] ([facility]) Albumin 2.7 GM/DL 3.2-5.2 [facility] ([facility]) ID Date Data Source [id number] 03/07/2021 03:05:00 PM EST [facility] ([facility]) Name Value Range Interpretation Code Description Data Valeria rce(s) Supporting Document(s) Lactate [Mass/volume] in Serum or Plasma 1.0 mmol/L 0.4-2.0 [facility] ([facility]) Y/N query for Sepsis Lactate Rule: Y ID Date Data Source [id number] 03/07/2021 03:05:00 PM EST [facility] ([facility]) Name Value Range Interpretation Code Description Data Valeria rce(s) Supporting Document(s) White Blood Count 7.7 10 4.0-10.0 [facility] ([facility]) Hemoglobin 8.4 g/dL 13.5-17.5 [facility] Red Blood Count 2.47 10 4.30-6.10 [facility] ([facility]) Mean Corpuscular Volume 110.1 fl 80.0-96.0 [facility] ([facility]) Hematocrit 27.2 % 42.0-52.0 [facility] Mean Corpuscular Hemoglobin 34.0 pg 27.0-33.0 ME [facility] ([facility]) Mean Corpuscular HGB Conc 30.9 g/dL 32.0-36.5 [facility] NT ([facility]) Platelet Count, Automated 111 10 150-450 [facility] ([facility]) Red Cell Distribution Width 18.3 % 11.5-14.5 [facility] ([facility]) [place] % 12.4 % 2.0-8.0 [facility]) Neutrophils % 65.2 % 36.0-66.0 [facility] ([facility]) Lymph % 9.4 % 24.0-44.0 [facility] Eos % 11.6 % 0.0-3.0 [facility] Baso % 0.7 % 0.0-1.0 [facility] Nucleated Red Blood Cell % 0.0 % 0-0 MED ENT ([facility]) Immature Granulocyte % 0.7 % 0-3.0 [facility] ([facility]) Lymph # 0.7 10 1.5-5.0 [facility] Neutrophils # 5.0 10 1.5-8.5 [facility]) [place] # 1.0 10 0.0-0.8 [facility] Eos # 0.9 10 0.0-0.5 [facility] Baso # 0.1 10 0.0-0.2 [facility] ID Date Data Source [id number] 02/27/2021 02:49:00 AM EST [facility] Name Value Range Interpretation Code Description Data Valeria rce(s) Supporting Document(s) SARS coronavirus 2 RNA [Presence] in Res piratory specimen by PHUONG with probe detection NEGATIVE [facility] This lab was ordered by [facility] a nd reported by [facility]. ID Date Data Source [id number] 02/23/2021 04:26:00 PM EST [facility] Name Value Range Interpretation Code Description Data Valeria rce(s) Supporting Document(s) SARS coronavirus 2 RNA [Presence] in Res piratory specimen by PHUONG with probe detection NEGATIVE - SARS-CoV-2 (COVID19) [facility] This lab was ordered by [facility] a nd reported by [facility]. ID Date Data Source [id number] 02/08/2021 02:09:00 PM EDT [facility] Name Value Range Interpretation Code Description Data Valeria rce(s) Supporting Document(s) SARS-CoV-2 (COVID 19) NEGATIVE - SARS-CoV-2 (COVID19) [facility] This lab was ordered by [facility] a nd reported by [facility]. ID Date Data Source [id number] 08/16/2020 12:00:00 AM EDT [facility] Name Value Range Interpretation Code Description Data Valeria rce(s) Supporting Document(s) SARS-[facility]2 Rapid Antigen Negative [facility] ordered by [facility] and reported by [facility]. ID Date Data Source [id number] 08/10/2020 03:19:00 PM EDT [facility] ([facility], ) Name Value Range Interpretation Code Description Data Valeria rce(s) Supporting Document(s) Glucose [Mass/volume] in Capillary blood by Glucometer 67 mg/dL 80-115 Below low normal [facility] ([facility], ) ID Date Data Source [id number] 08/10/2020 03:19:00 PM EDT [facility] ([facility]) Name Value Range Interpretation Code Description Data Valeria rce(s) Supporting Document(s) Bedside Glucose 67 mg/dL 80-115 [facility] ([facility]) ID Date Data Source [id number] 08/10/2020 01:53:00 PM EDT [facility] ([facility], ) Name Value Range Interpretation Code Description Data Valeria rce(s) Supporting Document(s) Glucose [Mass/volume] in Capillary blood by Glucometer 76 mg/dL 80-115 Below low normal [facility] ([facility]) ID Date Data Source [id number] 08/10/2020 01:53:00 PM EDT [facility] ([facility]) Name Value Range Interpretation Code Description Data Valeria rce(s) Supporting Document(s) Bedside Glucose 76 mg/dL 80-115 [facility] ([facility]) ID Date Data Source [id number] 08/03/2020 12:49:00 PM EDT [facility] Name Value Range Interpretation Code Description Data Valeria rce(s) Supporting Document(s) SARS-CoV-2 (COVID 19) NEGATIVE - SARS-CoV-2 (COVID19) [facility] This lab was ordered by [facility] a nd reported by [facility]. ID Date Data Source [id number] 07/31/2020 10:00:00 AM EDT [facility] Name Value Range Interpretation Code Description Data Valeria rce(s) Supporting Document(s) SARS-CoV-2 (COVID-19) RNA [Presence] in Respiratory specimen by PHUONG with probe detection Not Detected [facility] This lab was ordered by [facility] and reported by [employer] ID Date Data Source [id number] 07/24/2020 10:23:00 AM EDT [facility] Name Value Range Interpretation Code Description Data Valeria rce(s) Supporting Document(s) SARS-CoV-2 (COVID-19) RNA [Presence] in Respiratory specimen by PHUONG with probe detection Not Detected [facility] This lab was ordered by [facility] and reported by [employer] ID Date Data Source [id number] 07/17/2020 10:00:00 AM EDT [facility] Name Value Range Interpretation Code Description Data Valeria rce(s) Supporting Document(s) SARS-CoV-2 (COVID-19) RNA [Presence] in Respiratory specimen by PHUONG with probe detection Not Detected [facility] This lab was ordered by [facility] and reported by [employer]. ID Date Data Source [id number]/13/2020 12:00:00 AM EDT [facility] Name Value Range Interpretation Code Description Data Valeria rce(s) Supporting Document(s) SARS coronavirus 2 Ag Negative [facility] This lab was ordered by [facility] and reported by [facility]. ID Date Data Source [id number] 07/06/2020 12:00:00 AM EDT [facility] Name Value Range Interpretation Code Description Data Valeria rce(s) Supporting Document(s) SARS-CoV2 Rapid Antigen Negative [facility] This lab was ordered by [facility] and reported by [facility]. ID Date Data Source [id number] 06/13/2020 01:00:00 PM EST [facility] Name Value Range Interpretation Code Description Data Valeria rce(s) Supporting Document(s) SARS coronavirus 2 RNA Not Detected [facility] This lab was ordered by [facility] and reported by [facility]. ID Date Data Source [id number] 06/06/2020 01:00:00 PM EST [facility] Name Value Range Interpretation Code Description Data Valeria rce(s) Supporting Document(s) SARS coronavirus 2 RNA Not Detected [facility] This lab was ordered by [facility] and reported by [facility]. ID Date Data Source [id number] 05/30/2020 10:40:00 AM EST [facility] Name Value Range Interpretation Code Description Data Valeria rce(s) Supporting Document(s) SARS coronavirus 2 RNA Not Detected [facility] This lab was ordered by [facility] and reported by [facility]. ID Date Data Source [id number] 05/23/2020 01:00:00 PM EST [facility] Name Value Range Interpretation Code Description Data Valeria rce(s) Supporting Document(s) SARS coronavirus 2 RNA Not Detected [facility] This lab was ordered by [facility] and reported by [facility]. ID Date Data Source [id number] 05/16/2020 01:00:00 PM EST [facility] Name Value Range Interpretation Code Description Data Valeria rce(s) Supporting Document(s) SARS coronavirus 2 RNA Not Detected [facility] This lab was ordered by [facility] and reported by [facility]. ID Date Data Source [id number] 05/09/2020 11:30:00 AM EST [facility] Name Value Range Interpretation Code Description Data Valeria rce(s) Supporting Document(s) SARS coronavirus 2 RNA Not Detected [facility] This lab was ordered by [facility] and reported by [facility]. ID Date Data Source [id number] 05/02/2020 11:00:00 AM EST [facility] Name Value Range Interpretation Code Description Data Valeria rce(s) Supporting Document(s) SARS coronavirus 2 RNA Not Detected [facility] This lab was ordered by [facility] and reported by [facility]. ID Date Data Source [id number] 04/27/2020 01:00:00 PM EST [facility] ([facility], ) Name Value Range Interpretation Code Description Data Valeria rce(s) Supporting Document(s) Glucose [Mass/volume] in Capillary blood by Glucometer 247 mg/dL 80-115 Above high normal [facility] ([facility], ) ID Date Data Source [id number] 04/27/2020 01:00:00 PM EST [facility] ([facility]) Name Value Range Interpretation Code Description Data Valeria rce(s) Supporting Document(s) Bedside Glucose 247 mg/dL 80-115 [facility] ([facility]) ID Date Data Source [id number] 04/25/2020 10:00:00 AM EST [facility] Name Value Range Interpretation Code Description Data Valeria rce(s) Supporting Document(s) SARS coronavirus 2 RNA Not Detected [facility] This lab was ordered by [facility] and reported by [facility]. ID Date Data Source [id number] 04/19/2020 10:15:00 AM EST [facility] Name Value Range Interpretation Code Description Data Valeria rce(s) Supporting Document(s) SARS-CoV-2 (COVID 19) NEGATIVE - SARS-CoV-2 (COVID19) [facility] This lab was ordered by [facility] a nd reported by [facility]. ID Date Data Source [id number] 04/18/2020 11:30:00 AM EST [facility] Name Value Range Interpretation Code Description Data Valeria rce(s) Supporting Document(s) SARS coronavirus 2 RNA Not Detected [facility] This lab was ordered by [facility] and reported by [facility]. ID Date Data Source [id number] 04/13/2020 03:22:00 PM EST [facility] Name Value Range Interpretation Code Description Data Valeria rce(s) Supporting Document(s) SARS coronavirus 2 RNA Not Detected [facility] This lab was ordered by [facility] and reported by [facility]. ID Date Data Source [id number] 04/09/2020 10:30:00 AM EST [facility] Name Value Range Interpretation Code Description Data Valeria rce(s) Supporting Document(s) SARS coronavirus 2 RNA Not Detected [facility] This lab was ordered by [facility] and reported by [facility]. ID Date Data Source [id number] 04/03/2020 09:57:00 AM EST [facility] Name Value Range Interpretation Code Description Data Valeria rce(s) Supporting Document(s) SARS coronavirus 2 RNA [facility] This lab was ordered by [facility] and reported by [facility]. ID Date Data Source [id number] 03/28/2020 11:00:00 AM EST [facility] Name Value Range Interpretation Code Description Data Valeria rce(s) Supporting Document(s) SARS coronavirus 2 RNA [facility] This lab was ordered by [facility] and reported by [facility]. ID Date Data Source [id number] 03/22/2020 10:20:00 AM EST [facility] Name Value Range Interpretation Code Description Data Valeria rce(s) Supporting Document(s) SARS coronavirus 2 RNA [facility] This lab was ordered by [facility] and reported by [facility]. ID Date Data Source [id number] 03/18/2020 01:52:00 PM EST [facility] Name Value Range Interpretation Code Description Data Valeria rce(s) Supporting Document(s) SARS coronavirus 2 RNA [facility] This lab was ordered by [facility] and reported by [facility]. ID Date Data Source [id number] 02/29/2020 12:00:00 PM EST [facility] Name Value Range Interpretation Code Description Data Valeria rce(s) Supporting Document(s) SARS coronavirus 2 RNA [facility] This lab was ordered by [facility] and reported by [facility]. ID Date Data Source [id number] 02/23/2020 12:00:00 PM EST [facility] Name Value Range Interpretation Code Description Data Valeria rce(s) Supporting Document(s) SARS coronavirus 2 RNA [facility] This lab was ordered by [facility] and reported by [facility]. ID Date Data Source [id number] 02/16/2020 07:30:00 AM EST [facility] Name Value Range Interpretation Code Description Data Valeria rce(s) Supporting Document(s) SARS coronavirus 2 RNA [facility] This lab was ordered by [facility] and reported by [facility]. Procedure Social History Code Duration Value Status Description Data Source(s ) Smoking 08/20/2020 12:00:00 AM EDT Patient is a former smoker completed Patient is a former smoker [facility] ([facility]) Vital Signs ID Date Data Source UNK Name Value Range Interpretation Code Description Data Source(s) Diastolic blood pressure 72 mm[Hg] 72 mm[Hg] [facility] ([facility]) Systolic blood pressure 146 mm[Hg] 146 mm[Hg] M [facility] ([facility]) Body weight 346.06 [lb_av] 346.06 [lb_av] [facility] ([facility]) on chart Body mass index (BMI) [Ratio] 54.2 kg/m2 54.2 k g/m2 [facility] ([facility]) Heart rate 81 /min 81 /min [facility] ([facility]) [place] body weight 148 [lb_av] 148 [lb_av] [facility] Body height 67 [in_i] 67 [in_i] [facility] ([facility]) 5'7" Body weight 156.974 kg 156.974 kg [facility] ([facility]) Body surface area Derived from formula 2.55 m2 2.55 m2 [facility] ([facility]) Heart rate 73 /min 73 /min [facility] ([facility]) Body height 67 [in_i] 67 [in_i] [facility] ([facility]) 5'7" Body weight 325.19 [lb_av] 325.19 [lb_av] [facility] T ([facility]) Body mass index (BMI) [Ratio] 50.9 kg/m2 50.9 k g/m2 [facility] [place] body weight 148 [lb_av] 148 [lb_av] [facility] ([facility]) Body weight 147.505 kg 147.505 [facility] Body surface area Derived from formula 2.49 m2 2.49 m2 [facility] ([facility]) Systolic blood pressure 153 mm[Hg] 153 mm[Hg] [facility] ([facility]) Diastolic blood pressure 90 mm[Hg] 90 mm[Hg] [facility] ([facility]) Body height 67 [in_i] 67 [in_i] [facility] ([facility]) 5'7" Body weight 325.19 [lb_av] 325.19 [lb_av] [facility] T ([facility]) Body mass index (BMI) [Ratio] 50.9 kg/m2 50.9 k g/m2 [facility] ([facility]) [place] body weight 148 [lb_av] 148 [lb_av] [facility] ([facility]) Body weight 147.505 kg 147.505 kg [facility] ([facility]) Body surface area Derived from formula 2.49 m2 2.49 m2 [facility] ([facility]) [place] body weight 148 [lb_av] 148 [lb_av] [facility] T ([facility]) Body height 67 [in_i] 67 [in_i] [facility] ([facility]) 5'7" Body surface area Derived from formula 2.49 m2 2.49 m2 [facility] ([facility]) Body weight 147.420 kg 147.420 kg [facility] ([facility]) Diastolic blood pressure 67 mm[Hg] 67 mm[Hg] [facility] Body weight 325.00 [lb_av] 325.00 [lb_av] [facility] T ([facility]) Body mass index (BMI) [Ratio] 50.9 kg/m2 50.9 k g/m2 [facility] ([facility]) Systolic blood pressure 123 mm[Hg] 123 mm[Hg] M [facility] ([facility]) [place] body weight 148 [lb_av] 148 [lb_av] [facility] T ([facility]) Diastolic blood pressure 81 mm[Hg] 81 mm[Hg] [facility] ([facility]) Body mass index (BMI) [Ratio] 51.1 kg/m2 51.1 k g/m2 [facility] ([facility]) Body surface area Derived from formula 2.49 m2 2.49 m2 [facility] ([facility]) Systolic blood pressure 151 mm[Hg] 151 mm[Hg] [facility] Heart rate 80 /min 80 /min [facility] ([facility]) Body height 67 [in_i] 67 [in_i] [facility] ([facility]) 5'7" Body weight 326.00 [lb_av] 326.00 [lb_av] [facility] T ([facility]) Body weight 147.874 kg 147.874 kg [facility] ([facility]) Systolic blood pressure 176 mm[Hg] 176 mm[Hg] [facility] Diastolic blood pressure 81 mm[Hg] 81 mm[Hg] [facility] ([facility]) Body height 67 [in_i] 67 [in_i] [facility] ([facility]) 5'7" Body weight 326.00 [lb_av] 326.00 [lb_av] [facility] T ([facility]) Body mass index (BMI) [Ratio] 51.1 kg/m2 51.1 k g/m2 [facility] ([facility]) Body weight 147.874 kg 147.874 kg [facility] ([facility]) [place] body weight 148 [lb_av] 148 [lb_av] [facility] Body surface area Derived from formula 2.49 m2 2.49 m2 [facility] ([facility]) Systolic blood pressure 167 mm[Hg] 167 mm[Hg] [facility] Body height 67 [in_i] 67 [in_i] [facility] ([facility]) 5'7" Diastolic blood pressure 85 mm[Hg] 85 mm[Hg] [facility] ([facility]) Body mass index (BMI) [Ratio] 50.8 kg/m2 50.8 k g/m2 [facility] ([facility]) Heart rate 72 /min 72 /min [facility] ([facility]) Body weight 324.56 [lb_av] 324.56 [lb_av] [facility] [place] body weight 148 [lb_av] 148 [lb_av] [facility] Body weight 147.222 kg 147.222 kg [facility] ([facility]) Body surface area Derived from formula 2.48 m2 2.48 m2 [facility] ([facility])
[2021-03-09 17:33] LABS: INR 1.88
--- NOTE | 2021-03-09 17:33 | HPEPDOC ---
[facility] Medical History & Physical Date of Admission Mar 09, 2021 Date of Service: Mar 09, 2021 Attending Physician: KRISTEN ONOFRE MD History and Physical REASON FOR CRITICAL CARE CONSULTATION/CHIEF COMPLAINT: Hypercapnic respiratory failure HISTORY OF PRESENT ILLNESS: 66-year-old male with multiple comorbidities who presented to the emergency department status post mechanical fall. History is obtained from the chart. The patient was on his way to dialysis when he had a mechanical fall at the dialysis center. He did not receive dialysis. He arrived to the ER and initially he was hemodynamically stable though he was lethargic and hypoxic. He was initially placed on CPAP and his ABG respiratory acidosis. He was then changed to BiPAP and his repeat ABG showed worsening of his respiratory acidosis. In the emergency department he also became hypotensive and was given 1 L normal saline in total. And then was started on Levophed through a right femoral triple-lumen catheter. Additional work-up in the emergency department revealed that the patient had a left distal femur fracture. Orthopedics was consulted. Patient is currently seen and examined at bedside. He is on noninva sive ventilation and he is arousable to painful stimuli. He does follow simple commands. He is on AVAPS and his tidal volumes are adequate. He is on low-dose Levophed. PAST MEDICAL/SURGICAL HISTORY: Atrial fibrillation on Eliquis, CHF with reduced ejection fraction 45%, pulmonary hypertension, morbid obesity, chronic hypercapnic respiratory failure on home oxygen, end-stage renal disease on hemodialysis via left arm AV fistula, chronic anemia, diabetes, obstructive sleep apnea, GERD FAMILY HISTORY: Unable to SOCIAL HISTORY: Unable to obtain. Per records former smoker. Denies drinking or recreational drug use. ALLERGIES: Please see below. HOME MEDICATIONS: Please see below. REVIEW OF SYSTEMS: Unable to obtain as the patient is on noninvasive ventilation and lethargic PHYSICAL EXAMINATION: VITAL SIGNS: Please see below. GENERAL APPEARANCE: Resting comfortably on AVAPS. Not tachypneic. Lethargic HEENT: no thyromegaly, trachea midline, PERRLA. normal mucous membranes RESPIRATORY: CTA B/L, good air entry. No respiratory distress, not tachypneic CARDIOVASCULAR: +s1 s2, no murmurs. ABDOMEN: Morbidly obese nontender, not distended, +BS EXTREMITIES: no edema or erythema. palpable distal pulses, left arm AV fistula with bruit SKIN: no rash, no purpura NEUROLOGICAL: Lethargic but arousable to painful stimuli, follows simple commands and moves all extremities LABS/IMAGING: Chest x-ray does not reveal any acute cardiopulmonary disease. CTA of the chest is notable for bilateral scattered atelectasis. IMPRESSION: The most critical problems requiring my immediate presence at bedside are: 1. Acute on chronic hypercapnic respiratory failure with evidence of conc omitant metabolic acidosis likely from missed dialysis. 2. Morbid obesity with probable MARCELA/OHS causing chronic hypercapnic respiratory failure on home oxygen 3. Left distal femur fracture status post mechanical fall 4. Atrial fibrillation on Eliquis 5. History of heart failure reduced EF currently no evidence of decompensation 6. History of ESRD on HD 7. Shock undifferentiated. No clear source of sepsis. No hematoma on leg imaging, and hemoglobin at baseline. No pulmonary edema to suggest cardiogenic shock. Bedside echo no pericardial effusion. No PE on CTA. Patient is chronically hypotensive at baseline 8. Chronic anemia at baseline 9. Pulmonary hypertension likely group 2/3 PLAN: ACCOUNT DEVELOPMENT EXECUTIVE: Avoid ACCOUNT DEVELOPMENT EXECUTIVE depressants. PULM: HOB 30 degrees. Maintain Sp02 89 to 92%. Titrate down oxygen as tolerated. Continue with AVAPS and repeat ABG in 1 hour. If no improvement in his hypercapnia will likely need intubation. CARDIO: Maintain MAPs 60-65. Titrate off Levophed as tolerated. Hold BP meds for now. Fup lactate GI: GI ppx. N.p.o. RENAL: nephrology is on board and will attempt dialysis today. ID: Follow-up blood cultures, vanc and cefepime until cultures ENDO: Monitor FS per routine. Goal range 140-180. HEME: DVT ppx. Check coag profile. Holding anticoagulation for possible orthopedic surgery in the next 24 to 48-hour MSK: Once patient's respiratory and renal status are optimized will need orthopedic evaluation for left distal femur fracture LINES/CATHETERS: Right femoral triple-lumen catheter. CODE STATUS: Full code. DISPOSITION: ICU. A total of 62 minutes of critical care time was spent on patient care, not including procedures Vital Signs Vital Signs Date Time Temp Pulse Resp B/P (MAP) Pulse Ox O2 Delivery O2 Flow Rate FiO2 03/09/21 16:25 21 98/53 (68) 95 NIPPV (BIPAP/CPAP) 50 03/09/21 16:19 70 03/09/21 13:49 96.5 2.0 Laboratory Data Labs 24H Laboratory Tests 2 03/09/21 12:33: Immature Granulocyte % (Auto) 0.6, Neutrophils (%) (Auto) 84.1H, Lymphocytes (%) (Auto) 5.5L, Monocytes (%) (Auto) 7.8, Eosinophils (%) (Auto) 1.5, Basophils (%) (Auto) 0.5, Neutrophils # (Auto) 12.0H, Lymphocytes # (Auto) 0.8L, Monocytes # (Auto) 1.1H, Eosinophils # (Auto) 0.2, Basophils # (Auto) 0.1, Nucleated Red Blood Cells % (auto) 0.4H, Platelet Estimate DECREASED, Polychromasia 1+, Anisocytosis 2+, Macrocytosis 3+, Schistocytes 1+, Blood Gas Bicarbonate Standard 18.3L, Arterial Blood pH 7.205*L, Arterial Blood Partial Pressure CO2 52.3H, Arterial Blood Partial Pressure O2 179.9H, Arterial Blood Total CO2 21.8L, Arterial Blood HCO3 20.2L, Arterial Blood Base Excess -7.5L, Arterial Blood Oxygen Saturation 98.6, Anion Gap 10, Glomerular Filtration Rate 8.0L, Osmolality 315H, Lactic Acid Level 2.4*H, Calcium Level 8.1L, Total Bilirubin 0.6, Direct Bilirubin 0.2, Aspartate Amino Transf (AST/SGOT) 210H, Alanine Aminotransferase (ALT/SGPT) 195H, Alkaline Phosphatase 137H, Ammonia 66H, Total Protein 6.8, Albumin 2.7L, Albumin/Globulin Ratio 0.7, Thyroid Stimulating Hormone (TSH) 9.150H 03/09/21 12:46: Coronavirus (COVID-19)(PCR) NEGATIVE, Influenza Type A (RT-PCR) NEGATIVE, Influenza Type B (RT-PCR) NEGATIVE, Respiratory Syncytial Virus (PCR) NEGATIVE 03/09/21 12:51: POC Troponin I (Misc) 0.21H 03/09/21 15:55: Blood Gas Bicarbonate Standard 20.5L, Arterial Blood pH 7.136*L, Arterial Blood Partial Pressure CO2 75.8*H, Arterial Blood Partial Pressure O2 66.1L, Arterial Blood Total CO2 27.3, Arterial Blood HCO3 25.0, Arterial Blood Base Excess - 4.6L, Arterial Blood Oxygen Saturation 85.2L CBC/BMP Laboratory Tests 03/09/21 12:33 Microbiology Microbiology 03/09/21 Blood Culture, Received Pending 03/09/21 Blood Culture, Received Pending Home Medications Scheduled Apixaban (Eliquis) 5 Mg Tablet, 5 MG PO BID Aspirin (Aspirin EC) 81 Mg Tab, 81 MG PO DAILY Atorvastatin Calcium (Atorvastatin Calcium) 40 Mg Tab, 40 MG PO QHS Calcium Acetate (Calcium Acetate) 667 Mg Tablet, 1,334 MG PO TID Carvedilol (Carvedilol) 3.125 Mg Tablet, 3.125 MG PO DAILY Docusate Sodium (Colace) 100 Mg Capsule, 200 MG PO QHS Famotidine (Famotidine) 20 Mg Tab, 20 MG PO BID Fluticasone Propionate (Fluticasone Propionate) 16 Gm [place].susp, 1 SPRAY NA DAILY Insulin Glargine,Hum.rec.anlog (Toujeo Solostar) 300 Unit/1 Ml Insuln.pen, 20 UNIT SC DAILY Insulin Human Lispro (Humalog) 100 Unit/1 Ml Vial, 1 DOSE SC ACHS Lidocaine/Prilocaine (Lidocaine-Prilocaine Cream) 2.5%/2.5% Cream..g., 1 DOSE TOP ASDIRECTED Apply dime size to port area. Do not rub in, cover with saran wrap to protect clothing. Nystatin (Nystatin Powder) 15 Gm Powder, 1 APPLIC TOP DAILY APPLY TO ABDOMINAL FOLDS AND GROIN AREA Oxcarbazepine (Oxcarbazepine) 300 Mg Tab, 300 MG PO BID Paliperidone (Invega) 3 Mg Tab, 3 MG PO QPM TAKES AT 1700 Sennosides (Senna) 8.6 Mg Tablet, 8.6 MG PO BID Tamsulosin HCl (Flomax) 0.4 Mg Cap, 0.8 MG PO DAILY Venlafaxine HCl (Venlafaxine HCl ER) 150 Mg Cap.er.24h, 150 MG PO DAILY Scheduled PRN Acetaminophen (Acetaminophen) 500 Mg Tablet, 1,000 MG PO BID PRN for PAIN LEVEL 1-4 Albuterol Sulf (Albuterol Sulfate) 2.5 Mg/3 Ml Nebu, 1 VIAL NEB Q2H PRN for SOB/WHEEZING Bisacodyl (Bisacodyl) 10 Mg Supp.rect, 10 MG GA DAILY PRN for CONSTIPATION Glycerin/Propylene Glycol (Artificial Tears Drops) 15 Ml Drops, 1 DROP OU BID PRN for DRY EYES Tramadol HCl (Tramadol HCl) 50 Mg Tablet, 50 MG PO BID PRN for PAIN LEVEL 4-7 Allergies Coded Allergies: No Known Allergies (Verified , 10/01/17) A-FIB/CHADSVASC A-FIB History Current/History of A-Fib/PAF?: Yes Current PO Anticoag Therapy: Yes KRISTEN ONOFRE MD Mar 09, 2021 17:33
[2021-03-09 17:53] LABS: ABG BASE EXCESS -6.2 (-2.0-2.0); ABG HCO3 22.2 MEQ/L (22.0-26.0); ABG O2 SATURATION 86.7 % (95.0-99.0); ABG STANDARD HCO3 19.2 MEQ/L (22.0-26.0); ABG TOTAL CO2 24.1 MEQ/L (23.0-31.0)
[2021-03-09 17:54] LABS: ABG PARTIAL PRESSURE CO2 60.2 mmHg (35.0-45.0); ABG pH (ARTERIAL) 7.185 UNITS (7.350-7.450)
[2021-03-09] MEDS ORDERED: VANCOMYCIN HCL IV ONE (18:05)
[2021-03-09] MEDS ORDERED: MATE ADAPTER IV ONE (18:05)
[2021-03-09] MEDS ORDERED: NS IV ONE (18:05)
[2021-03-09] MEDS ORDERED: LIDOCAINE 1% SDV 5ML VIAL SC PRN (18:15)
[2021-03-09] MEDS ORDERED: SODIUM CHLORIDE 0.9% 1000ML IV PRN (18:15)
[2021-03-09] MEDS ORDERED: VANCOMYCIN HCL 1,000 MG, VIAL MATE ADAPTER 1 EACH in NS 250 ML IV ONE ×2 (18:30→22:00)
[2021-03-09] MEDS: PANTOPRAZOLE 40MG VIAL (C9113 PER 1) IV SCH (18:39)
[2021-03-09 20:04] LABS: CALCIUM LEVEL 7.8 MG/DL (8.8-10.2); CREATININE FOR GFR 7.51 MG/DL (0.70-1.30); GLOMERULAR FILTRATION RATE 7.8 (>49); POTASSIUM SERUM 5.7 MEQ/L (3.5-5.1)
[2021-03-09] MEDS: HEPARIN SOD (PORCINE) 5000UNITS/ML 1ML VIAL/SYRINGE SC SCH (21:16)
--- NOTE | 2021-03-09 22:47 | CR ---
NEPHROLOGY CONSULTATION DATE: 03/09/2021 CONSULTATION REQUESTED BY: Jassi New M.D. REASON FOR CONSULTATION: Hyperkalemia and shortness of breath in this gentleman with end-stage renal disease and left femoral fracture. HISTORY OF PRESENT ILLNESS: Mr. Valadez is a 66-year-old, morbidly obese gentleman, who is a alf resident with multiple chronic and psych problems. He presented to the Emergency Room today after a fall at the alf and was found to have fracture of the distal left femur. He was hypotensive in the Emergency Room and also short of breath. He is currently on Levophed for low blood pressure and on BiPAP for shortness of breath. He was also noticed to have a potassium level of 6.1. A nephrology consultation was requested for dialysis as patient needs to be optimized for the OR for his left femur fracture. PAST MEDICAL HISTORY: Significant for: 1. History of end-stage renal disease on maintenance hemodialysis. 2. Systolic congestive heart failure with ejection fraction of 45%. 3. Pulmonary hypertension. 4. Morbid obesity. 5. Atrial fibrillation on chronic Eliquis therapy. 6. Chronic hypercapnia respiratory failure due to obesity and obstructive sleep apnea 7. Anemia of chronic renal failure. 8. History of diabetes. 9. Gastroesophageal reflux disease. PAST SURGICAL HISTORY: Significant for: 1. Left arm AV fistula creation. 2. Permacath placed and removed. MEDICATIONS: skilled nursing medications include: 1. Eliquis 5 mg b.i.d. 2. Aspirin 81 mg daily. 3. Atorvastatin 40 mg daily. 4. Calcium acetate two tablets t.i.d. with meals. 5. Carvedilol 3.125 mg daily. 6. Colace 100 mg at bedtime. 7. Famotidine 20 mg b.i.d. 8. Insulin Toujeo 20 units daily. 9. Humalog per sliding scale. 10.Oxcarbazepine 300 mg b.i.d. 11.Invega 3 mg at bedtime. 12.Tamsulosin 0.4 mg daily. 13.Venlafaxine ER 150 mg daily. ALLERGIES: Patient has no known drug allergies. FAMILY HISTORY: Unremarkable and at present not relevant. PERSONAL AND SOCIAL HISTORY: Patient has been a alf resident and there is no history of smoking or drug use. REVIEW OF SYSTEMS: Not possible as patient is on the BiPAP and he is also sedated with pain medication. PHYSICAL EXAMINATION: GENERAL: A morbidly obese gentleman lying in the bed, currently using BiPAP. VITALS: Temperature 96.8 degrees Fahrenheit, heart rate 78 per minute, respiratory rate 20 per minute, blood pressure 103/67 mmHg and oxygen saturation 95% on BiPAP. HEENT: Head is atraumatic. Neck veins are impossible to be assessed. HEART: Heart sounds are irregular in rhythm. LUNGS: Good bilateral air entry anteriorly. ABDOMEN: Obese, bowel sounds are audible. EXTREMITIES: Without any cyanosis or clubbing. He has a left arm AV fistula, which is patent. He currently has a central line in his right femoral vein. Left leg is externally rotated. There is a small bruise on his right knee also. LABORATORY DATA: WBC 14.3, hemoglobin 8.8, hematocrit 29.6, platelets 132,000. Blood gas initially showed a pH of 7.20, pCO2 of 52.3 and pO2 of 180; mostly some blood gas is 7.18 pH, pCO2 of 60 and pO2 of 68. Sodium 138 and potassium 6.1. BUN 72 and creatinine 7.36. Glucose 135 and osmolality 315. Lactic acid level initially was 2.4 and a repeat one is 1.3. Ammonia level 66 and albumin 2.7. TSH level 9.15. PROBLEMS: 1. Hyperkalemia: This is due to missed dialysis treatment and possibly some absorption from the bleeding in his fracture site. Patient is not able to swallow Kayexalate at present properly. Will arrange for urgent dialysis as soon as patient gets up to the ICU. 2. End-stage renal disease: Patient has been on maintenance hemodialysis on Thursday, and Thursday schedule. He missed his dialysis today because of the fracture and being in the Emergency Room. We will plan dialysis this evening. 3. Hypotension: His blood pressure is lower than usual. He is currently on Levophed with improved blood pressure. I recommend to continue with Levophed at least until he gets done with dialysis. 4. Hypoxemia: Patient has multiple risk factors for hypoxemia including obstructive sleep apnea, morbid obesity, end-stage renal disease and systolic congestive heart failure. He usually gains about 5 liters of fluid between dialysis treatments and most likely has some volume overload. Will try to remove at least 3 liters of fluid today and not be too aggressive in view of pressor requirement. 5. Anemia: Patient does have anemia of chronic kidney disease. He is probably slightly worse than baseline due to the fracture and possible blood loss. He is likely to require transfusion during or after his surgery. At this point, I will hold off on any transfusion due to hypoxemia and risk for worsening volume status. 6. Left femur fracture: Patient is likely to require surgery and we are trying to optimize him for his surgery. His labs should be repeated after dialysis. Thank you for involving me in the care of Mr. Valadez. I will follow him along with you.
[2021-03-10] VITALS (46 sets, daily range): BP systolic 81–136; BP diastolic 44–97
[2021-03-10 04:44] LABS: HEMATOCRIT 27.1 % (42.0-52.0); HEMOGLOBIN 8.1 g/dl (13.5-17.5); MEAN CORPUSCULAR HGB CONC 29.9 g/dl (32.0-36.5); MEAN CORPUSCULAR VOLUME 113.9 fl (80.0-96.0); PLATELET COUNT, AUTOMATED 138 10^3/uL (150-450); RED BLOOD COUNT 2.38 10^6/uL (4.30-6.10); WHITE BLOOD COUNT 12.4 10^3/uL (4.0-10.0)
[2021-03-10] MEDS: HEPARIN SOD (PORCINE) 5000UNITS/ML 1ML VIAL/SYRINGE SC SCH ×3 (05:01→23:19)
[2021-03-10 05:14] LABS: ALBUMIN 2.5 GM/DL (3.2-5.2); BILIRUBIN,TOTAL 0.6 MG/DL (0.2-1.0); CALCIUM LEVEL 7.6 MG/DL (8.8-10.2); CREATININE FOR GFR 4.98 MG/DL (0.70-1.30); GLOMERULAR FILTRATION RATE 12.6 (>49); MAGNESIUM LEVEL 1.9 MG/DL (1.8-2.4); PHOSPHORUS LEVEL 5.3 MG/DL (2.5-4.9); POTASSIUM SERUM 4.4 MEQ/L (3.5-5.1); TOTAL PROTEIN 6.6 GM/DL (6.4-8.2); VANCOMYCIN RANDOM 18.2 UG/ML
[2021-03-10 05:48] LABS: ABG BASE EXCESS -3.3 (-2.0-2.0); ABG HCO3 25.4 MEQ/L (22.0-26.0); ABG O2 SATURATION 98.7 % (95.0-99.0); ABG PARTIAL PRESSURE O2 154.9 mmHg (75.0-100.0); ABG STANDARD HCO3 21.7 MEQ/L (22.0-26.0); ABG TOTAL CO2 27.5 MEQ/L (23.0-31.0)
[2021-03-10 05:54] LABS: ABG PARTIAL PRESSURE CO2 68.6 mmHg (35.0-45.0); ABG pH (ARTERIAL) 7.187 UNITS (7.350-7.450)
[2021-03-10] MEDS ORDERED: CEFEPIME HCL 1 GM in D5W MINI-BAG PLUS 50 ML IV SCH (06:00)
[2021-03-10] MEDS ORDERED: SODIUM BICARBONATE 325 MG TAB PO SCH (06:00)
--- NOTE | 2021-03-10 08:14 | REP ---
INDICATION: DYSPNEA. COMPARISON: Portable chest, 05/17/2020 TECHNIQUE: Upright AP portable chest image was obtained. FINDINGS: The lungs are clear. There is cardiomegaly. There is a dual lead pacemaker. There is calcific vascular disease of the thoracic aorta. The upper abdominal bowel gas pattern is normal. There are no bony abnormalities of the chest. IMPRESSION: No evidence of acute cardiopulmonary pathology and no significant change. <Electronically signed by Vargas Estevez > 03/10/21 [id number]
[2021-03-10] MEDS ORDERED: ACETAMINOPHEN TAB 650MG DOSE (2X325MG) PO PRN (08:40)
[2021-03-10] MEDS ORDERED: IBUPROFEN 600MG TAB PO PRN (08:40)
[2021-03-10 09:19] LABS: ABG BASE EXCESS -3.8 (-2.0-2.0); ABG HCO3 23.2 MEQ/L (22.0-26.0); ABG O2 SATURATION 90.6 % (95.0-99.0); ABG PARTIAL PRESSURE CO2 52.3 mmHg (35.0-45.0); ABG STANDARD HCO3 21.2 MEQ/L (22.0-26.0); ABG TOTAL CO2 24.8 MEQ/L (23.0-31.0); ABG pH (ARTERIAL) 7.265 UNITS (7.350-7.450)
[2021-03-10] MEDS: PANTOPRAZOLE 40MG VIAL (C9113 PER 1) IV SCH (09:53)
[2021-03-10] MEDS: ACETAMINOPHEN TAB 650MG DOSE (2X325MG) PO SCH ×3 (09:53→18:00)
--- NOTE | 2021-03-10 10:08 | IPNPDOC ---
Text Note Date of Service The patient was seen on 03/10/21. NOTE CRITICAL CARE PROGRESS NOTE: SUBJECTIVE: Patient seen and examined at bedside. There were no overnight events. Patient remained on noninvasive ventilation all night. Levophed was stopped early this morning. The patient received hemodialysis yesterday and 3 L were removed. Patient is afebrile this morning. He is more alert and awake and he is conversational on the AVAPS. He is complaining of left leg pain. All other ROS are negative except as mentioned above PHYSICAL EXAMINATION: VITAL SIGNS: Please see below. GENERAL APPEARANCE: Alert and awake. Morbidly obese HEENT: no thyromegaly, trachea midline, PERRLA. normal mucous membranes RESPIRATORY: CTA B/L, good air entry. CARDIOVASCULAR: +s1 s2, no murmurs. ABDOMEN: nontender, not distended, +BS EXTREMITIES: Left leg tenderness, chronic lower extremity lymphedema changes, palpable distal pulses SKIN: no rash, no purpura NEUROLOGICAL: no sensory or motor deficits, orientedx3. PERTINENT LABS/IMAGING: Chest x-ray today shows no acute cardiopulmonary disease IMPRESSION: 1. Acute on chronic hypercapnic respiratory failure improved, with evidence of concomitant metabolic acidosis from renal failure 2. Morbid obesity with MARCELA/OHS causing chronic hypercapnic respiratory failure on home oxygen 3. Left distal femur fracture status post mechanical fall 4. Atrial fibrillation on Eliquis at home, currently rate controlled 5. History of heart failure reduced EF currently no evidence of decompensation 6. History of ESRD on HD 7. Shock undifferentiated resolved 8. Chronic anemia at baseline 9. Pulmonary hypertension likely group 2/3 10. Hypothyroidism PLAN: DISTRICT FIRE MANAGEMENT OFFICER: Avoid DISTRICT FIRE MANAGEMENT OFFICER depressants. Tylenol and NSAIDs for pain PULM: HOB 30 degrees. Maintain Sp02 89 to 92%. Titrate down oxygen as tolerated. place on oxygen via nasal cannula. AVAPS as needed and nightly. CARDIO: Maintain MAPs 60-65. off pressors Hold BP meds for now. GI: GI ppx. N.p.o. RENAL: Spoke with nephrology, he will need dialysis today for correction of metabolic acidosis today ID: Follow-up blood cultures, vanc and cefepime until cultures ENDO: Monitor FS per routine. Goal range 140-180. HEME: DVT ppx. Check coag profile. Holding anticoagulation for possible orthopedic surgery today MSK: Once patient's respiratory and renal status are optimized will need orthopedic evaluation for left distal femur fracture LINES/CATHETERS: Right femoral triple-lumen catheter. CODE STATUS: Full code. DISPOSITION: patient can be downgraded to PCU status. Transfer to medicine service. Pulm will continue to follow. From pulmonary standpoint patient is high risk for postoperative pulmonary complications including respiratory failure, pneumonia, atelectasis, etc. Given this is an urgent surgery need to weigh the benefits and risks. There is no contraindication for the surgery from pulmonary standpoint. Patient will need prolonged postop monitoring, postop incentive spirometer, DVT prophylaxis, early mobilization if possible. Recommend neuraxial anesthesia if possible. A total of 45 minutes of critical care time was spent on patient care, not including procedures VS,Fishbone, I+O VS, Fishbone, I+O Laboratory Tests 03/09/21 12:33 03/09/21 19:35 03/10/21 04:18 Vital Signs Date Time Temp Pulse Resp B/P (MAP) Pulse Ox O2 Delivery O2 Flow Rate FiO2 03/10/21 07:29 30 03/10/21 06:30 81 103/73 (83) 100 NIPPV (BIPAP/CPAP) 03/10/21 04:00 96.6 03/09/21 21:30 13 03/09/21 13:49 2.0 I&O- Last 24 Hours up to 6 AM 03/10/21 06:00 Intake Total 1895.9 ml Output Total 3000 ml Balance -1104.1 ml KRISTEN ONOFRE MD Mar 10, 2021 10:08
[2021-03-10] MEDS ORDERED: LIDOCAINE 1% SDV 5ML VIAL SC PRN (10:20)
[2021-03-10] MEDS ORDERED: SODIUM CHLORIDE 0.9% 1000ML IV PRN (10:20)
[2021-03-10] MEDS ORDERED: KETOROLAC 30 MG/ML 1ML VIAL IV ONE (11:00)
--- NOTE | 2021-03-10 11:42 | IPNPDOC ---
Date Seen The patient was seen on 03/10/21. Progress Note SUBJECTIVE: The patient was transferred to my service from ICU 03/10/21. Concern by nursing for aspiration with pills, NPO until swallowing evaluation can be done. Levophed stopped this morning, MAPs have been > 65mm Hg. Patient was transitioned to nasal cannula and appears to be at his baseline mentation. To receive dialysis again today, s/p 3 L removed with dialysis 03/09/21. Anesthesia requesting cardiac and medical clearance, echocardiogram being done today per Dr. Magana's request. Patient complains of left leg pain only, denies chest pain, increased shortness of breath, fevers or chills. PHYSICAL EXAMINATION: VITAL SIGNS: Please see below. GENERAL APPEARANCE: Alert and awake. Morbidly obese HEENT: No thyromegaly, trachea midline, PERRLA. Normal mucous membranes RESPIRATORY: CTA B/L, no w/r/r CARDIOVASCULAR: +S1S2, no murmurs, rubs, gallops ABDOMEN: nontender, not distended, +BS EXTREMITIES: Right femoral central line in place. Left leg tenderness, chronic lower extremity lymphedema changes, palpable distal pulses SKIN: no rash, no purpura NEUROLOGICAL: no sensory or motor deficits, orientedx3. PERTINENT LABS/IMAGING: Chest x-ray today shows no acute cardiopulmonary disease IMPRESSION: 1. Acute on chronic hypercapnic respiratory failure improved, with evidence of concomitant metabolic acidosis from renal failure 2. Morbid obesity with MARCELA/OHS causing chronic hypercapnic respiratory failure on home oxygen 3. Left distal femur fracture status post mechanical fall 4. Dysphagia 5. Transaminitis, acute 6. Atrial fibrillation on Eliquis at home, currently rate controlled 7. History of heart failure reduced EF currently no evidence of decompensation 8. History of ESRD on HD 9. Shock undifferentiated resolved 10. Chronic anemia at baseline 11. Pulmonary hypertension likely group 2/3 12. Hypothyroidism PLAN: SALVAGE LABORER: Is awake, cooperative and, per people who are familiar with him, this is his baseline. Avoid SALVAGE LABORER depressants. Tylenol and NSAIDs for pain. PULM: HOB 30 degrees. Maintain Sp02 89 to 92%. Titrate down oxygen as tolerated. Currently on nasal cannula. Bipap as needed and nightly. From pulmonary standpoint patient is high risk for postoperative pulmonary complications including respiratory failure, pneumonia, atelectasis, etc. There is no contraindication for the surgery from pulmonary standpoint per their note. Pulmonary recommends neuraxial anesthesia if possible. Pulmonary consulted to still follow. CARDIO: Maintain MAPs 60-65. Off pressors as of this AM. Continue to hold BP medications. Echocardiogram being done today for surgery 03/11/21 GI: GI ppx. Concern for dysphagia. Will need swallowing evaluation before resuming PO meds, diet. Elevated AST/ALT RENAL: S/p HD on 03/09/21 with removal of 3 liters. Getting dialysis again today with goal again [address] New spoke with nephrology (Dr. Duron), he will need dialysis today for correction of metabolic acidosis. Attempted PO sodium bicarb; however, unable to swallow pills. ID: Follow-up blood cultures, vanc and cefepime for now for broad spectrum coverage ENDO: Monitor FS per routine. Goal range 140-180. HEME: DVT ppx- Holding anticoagulation for orthopedic surgery likely 03/11/21 MSK: Plan is surgery 03/11/[address] Loza for repair of left distal femur fracture. Per anesthesia, will need cardiac and medical clearance. Pain control. LINES/CATHETERS: Right femoral triple-lumen catheter. CODE STATUS: Full code. DISPOSITION: Downgraded to PCU status today. Discussed case with Dr. Loza (ortho) and Dr. New (pulmonary/CC). Remains full Code. Surgery 03/11/21. VS, I&O, 24H, Fishbone Vital Signs/I&O Vital Signs Date Time Temp Pulse Resp B/P (MAP) Pulse Ox O2 Delivery O2 Flow Rate FiO2 03/10/21 07:29 30 03/10/21 06:30 81 103/73 (83) 100 NIPPV (BIPAP/CPAP) 03/10/21 04:00 96.6 03/09/21 21:30 13 03/09/21 13:49 2.0 l I&O- Last 24 Hours up to 6 AM 03/10/21 05:59 Intake Total 1832.9 ml Output Total 3000 ml Balance -1167.1 ml Laboratory Data 24H LABS Laboratory Tests 2 03/09/21 12:33: Immature Granulocyte % (Auto) 0.6, Neutrophils (%) (Auto) 84.1H, Lymphocytes (%) (Auto) 5.5L, Monocytes (%) (Auto) 7.8, Eosinophils (%) (Auto) 1.5, Basophils (%) (Auto) 0.5, Neutrophils # (Auto) 12.0H, Lymphocytes # (Auto) 0.8L, Monocytes # (Auto) 1.1H, Eosinophils # (Auto) 0.2, Basophils # (Auto) 0.1, Nucleated Red Blood Cells % (auto) 0.4H, Platelet Estimate DECREASED, Polychromasia 1+, Anisocytosis 2+, Macrocytosis 3+, Schistocytes 1+, Blood Gas Bicarbonate Standard 18.3L, Arterial Blood pH 7.205*L, Arterial Blood Partial Pressure CO2 52.3H, Arterial Blood Partial Pressure O2 179.9H, Arterial Blood Total CO2 21.8L, Arterial Blood HCO3 20.2L, Arterial Blood Base Excess -7.5L, Arterial Blood Oxygen Saturation 98.6, Anion Gap 10, Glomerular Filtration Rate 8.0L, Osmolality 315H, Lactic Acid Level 2.4*H, Calcium Level 8.1L, Total Bilirubin 0.6, Direct Bilirubin 0.2, Aspartate Amino Transf (AST/SGOT) 210H, Alanine Aminotransferase (ALT/SGPT) 195H, Alkaline Phosphatase 137H, Ammonia 66H, Total Protein 6.8, Albumin 2.7L, Albumin/Globulin Ratio 0.7, Thyroid Stimulating Hormone (TSH) 9.150H 03/09/21 12:46: Prothrombin Time 22.0H, Prothromb Time International Ratio 1.88, Coronavirus (COVID-19)(PCR) NEGATIVE, Influenza Type A (RT-PCR) NEGATIVE, Influenza Type B (RT-PCR) NEGATIVE, Respiratory Syncytial Virus (PCR) NEGATIVE 03/09/21 12:51: POC Troponin I (Misc) 0.21H 03/09/21 15:55: Blood Gas Bicarbonate Standard 20.5L, Arterial Blood pH 7.136*L, Arterial Blood Partial Pressure CO2 75.8*H, Arterial Blood Partial Pressure O2 66.1L, Arterial Blood Total CO2 27.3, Arterial Blood HCO3 25.0, Arterial Blood Base Excess - 4.6L, Arterial Blood Oxygen Saturation 85.2L 03/09/21 16:54: Lactic Acid Followup at 4 Hours 1.3 03/09/21 17:40: Blood Gas Bicarbonate Standard 19.2L, Arterial Blood pH 7.185*L, Arterial Blood Partial Pressure CO2 60.2*H, Arterial Blood Partial Pressure O2 68.0L, Arterial Blood Total CO2 24.1, Arterial Blood HCO3 22.2, Arterial Blood Base Excess - 6.2L, Arterial Blood Oxygen Saturation 86.7L 03/09/21 19:35: Anion Gap 12, Glomerular Filtration Rate 7.8L, Calcium Level 7.8L 03/10/21 04:18: Anion Gap 11, Glomerular Filtration Rate 12.6L, Calcium Level 7.6L, Nucleated Red Blood Cells % (auto) 0.6H, Lactic Acid Level 1.0, Phosphorus Level 5.3H, Magnesium Level 1.9, Total Bilirubin 0.6, Aspartate Amino Transf (AST/SGOT) 129H, Alanine Aminotransferase (ALT/SGPT) 184H, Alkaline Phosphatase 122H, Troponin I High Sensitivity 401.0*H, Total Protein 6.6, Albumin 2.5L, Albumin/Globulin Ratio 0.6, Random Vancomycin Level 18.2 03/10/21 05:00: Bedside Glucose (Misc Panel) 122H 03/10/21 05:42: Blood Gas Bicarbonate Standard 21.7L, Arterial Blood pH 7.187*L, Arterial Blood Partial Pressure CO2 68.6*H, Arterial Blood Partial Pressure O2 154.9H, Arterial Blood Total CO2 27.5, Arterial Blood HCO3 25.4, Arterial Blood Base Excess - 3.3L, Arterial Blood Oxygen Saturation 98.7 03/10/21 09:09: Blood Gas Bicarbonate Standard 21.2L, Arterial Blood pH 7.265L, Arterial Blood Partial Pressure CO2 52.3H, Arterial Blood Partial Pressure O2 68.0L, Arterial Blood Total CO2 24.8, Arterial Blood HCO3 23.2, Arterial Blood Base Excess - 3.8L, Arterial Blood Oxygen Saturation 90.6L CBC/BMP Laboratory Tests 03/09/21 12:33 03/09/21 19:35 03/10/21 04:18 Microbiology Microbiology 03/09/21 Blood Culture, Received Pending 03/09/21 Blood Culture, Received Pending Adelaida Chandra MD Mar 10, 2021 11:42
[2021-03-10] MEDS ORDERED: DEXTROSE 50% 50 ML SYRINGE IV STA (15:58)
[2021-03-10] MEDS ORDERED: DEXTROSE 50% 50 ML SYRINGE As Ordered ONE (15:58)
[2021-03-10] MEDS ORDERED: VANCOMYCIN HCL 1,000 MG, VIAL MATE ADAPTER 1 EACH in NS 250 ML IV SCH (16:00)
[2021-03-10] MEDS: **VANCO AFTER HD** MISC XX SCH (16:06)
[2021-03-10] MEDS ORDERED: DEXTROSE 50% 50 ML SYRINGE IV PRN (17:05)
[2021-03-10] MEDS ORDERED: GLUCAGON INJ 1MG VIAL SC PRN (17:05)
[2021-03-10] MEDS ORDERED: GLUCOSE 4GM CHEW TABLET PO PRN (17:05)
--- NOTE | 2021-03-10 17:35 | IPN ---
NEPHROLOGY PROGRESS NOTE DATE: 03/10/2021 SUBJECTIVE: Mr. Valadez is seen this morning at his bedside. He was admitted yesterday with a left femur fracture. He was hyperkalemic, short of breath and hypotensive. We dialyzed him last night and corrected his hyperkalemia and also removed some fluid. He was on Levophed at that time and we were not able to remove fluid too aggressively, however he did tolerate some fluid removal. He is breathing much better today and he is now on oxygen via nasal cannula while at night he was on BIPAP. The patient needs to go to the O.R. for his left femur fracture surgery and Dr. New has called this morning and discussed the case multiple times. He has requested another dialysis session in order to correct his metabolic acidosis while the patient has also chronic respiratory acidosis. We have already called dialysis staff to perform a bedside dialysis in the Intensive Care Unit this morning. OBJECTIVE: PHYSICAL EXAMINATION: GENERAL APPEARANCE: The patient is awake, and at about his baseline mentation. He is answering questions appropriately. VITAL SIGNS: Temperature is 96.6 degrees Fahrenheit, heart rate 80 per minute and respiratory rate 20 per minute, blood pressure 103/73 mm of mercury and oxygen saturation is in the 90's. HEENT: His head is atraumatic. Oral mucosa is dry. Nursing staff reports that he has difficulty swallowing pills. NECK: Supple and JVD is difficult to be assessed. HEART: Sounds are regular. LUNGS: Diminished breath sounds. ABDOMEN: Obese and nontender and bowel sounds are present. EXTREMITIES: Without any cyanosis or clubbing. Left arm AV fistula is patent. Bilateral lower extremity edema is chronic and about 2+. LABORATORY STUDIES: Today's labs show a white blood cell count of 12.4, hemoglobin 8.1 and hematocrit 27.1. Blood gas showed a pH of 7.26, pco2 52 and pO2 68. Bicarbonate is 21. Sodium 138, potassium 4.4, CO2 27, BUN 42 and creatinine 4.98. Glucose 119 and calcium 7.6. AST 129, ALT 184 and alkaline phosphatase 122. A troponin-I level is 401. PROBLEMS: 1. Hyperkalemia his potassium level has corrected with dialysis last night. Today we will dialyze him with 3.0 mEq potassium bath. 2. Shortness of breath and hypoxemia - The patient has some chronic hypoxemia related to his obesity, obstructive sleep apnea, and some of it is due to hypervolemia. We removed some fluid last night with dialysis and we will remove another 2.5-3 liters fluid today. He is not on pressors anymore and blood pressure is stable, so he is likely to tolerate further fluid removal. 3. Hypoxemia and metabolic acidosis most likely this is related to some hypervolemia and chronic kidney disease. He also has respiratory acidosis in addition. We will try to optimize his volume status and acidosis as much as possible with dialysis. 4. Elevated troponin - The patient did have hypotension yesterday, however he is not hypotensive anymore and does not have any chest pain. Hospitalist service is investigating further. 5. Left femur fracture - The patient is being optimized for going to the O.R. for his fractured femur surgery. From a renal standpoint, he is likely to be optimized after dialysis today.
[2021-03-10] MEDS: D10W 1,000 ML IV SCH (19:54)
[2021-03-11] VITALS (18 sets, daily range): BP systolic 102–140; BP diastolic 54–70
[2021-03-11 05:11] LABS: HEMATOCRIT 23.4 % (42.0-52.0); MEAN CORPUSCULAR HGB CONC 29.9 g/dl (32.0-36.5); MEAN CORPUSCULAR VOLUME 113.6 fl (80.0-96.0); PLATELET COUNT, AUTOMATED 103 10^3/uL (150-450); RED BLOOD COUNT 2.06 10^6/uL (4.30-6.10)
[2021-03-11 05:46] LABS: ALBUMIN 2.3 GM/DL (3.2-5.2); BILIRUBIN,TOTAL 0.6 MG/DL (0.2-1.0); CALCIUM LEVEL 7.2 MG/DL (8.8-10.2); CREATININE FOR GFR 4.33 MG/DL (0.70-1.30); GLOMERULAR FILTRATION RATE 14.8 (>49); MAGNESIUM LEVEL 1.8 MG/DL (1.8-2.4); PHOSPHORUS LEVEL 3.4 MG/DL (2.5-4.9); POTASSIUM SERUM 4.3 MEQ/L (3.5-5.1); TOTAL PROTEIN 6.2 GM/DL (6.4-8.2)
[2021-03-11] MEDS: ACETAMINOPHEN TAB 650MG DOSE (2X325MG) PO SCH ×4 (05:54→19:29)
[2021-03-11 05:59] LABS: ABG BASE EXCESS 3.8 (-2.0-2.0); ABG HCO3 28.9 MEQ/L (22.0-26.0); ABG O2 SATURATION 94.3 % (95.0-99.0); ABG STANDARD HCO3 27.8 MEQ/L (22.0-26.0); ABG TOTAL CO2 30.4 MEQ/L (23.0-31.0); ABG pH (ARTERIAL) 7.407 UNITS (7.350-7.450)
[2021-03-11] MEDS: HEPARIN SOD (PORCINE) 5000UNITS/ML 1ML VIAL/SYRINGE SC SCH (06:08)
--- NOTE | 2021-03-11 06:35 | CR ---
CONSULTATION DATE: 03/09/2021 CONSULTING SERVICE: Orthopedic Service. CONSULTING PHYSICIAN: REN ARIAS MD HISTORY OF PRESENT ILLNESS: This is a 66-year-old male with a left distal femur shaft fracture. The patient was on his way to dialysis, sustained a ground-level fall on the March and was unable to bear weight on his left lower extremity after the fall. He was admitted to [facility] for further evaluation and treatment. The patient has a complicated past medical history and was admitted by the printed circuit boards solder leveler in the ICU. Patient was hemodynamically unstable on his arrival to [facility] and hypoxic. He was placed initially placed on CPAP and changed to BiPAP and had worsening respiratory acidosis. He is currently in the ICU and is being managed by the printed circuit boards solder leveler, Dr. New. The patient was optimized for surgery today for a left femur retrograde intramedullary nail, however anesthesia requested a cardiology workup. We will proceed with surgical intervention to his left femur when cleared by both the printed circuit boards solder leveler and anesthesia. PAST MEDICAL HISTORY: 1. Atrial fibrillation, on Eliquis. 2. Congestive heart failure. 3. Pulmonary hypertension. 4. Morbid obesity. 5. Chronic hypercapnic respiratory failure, on home oxygen. 6. End stage renal failure on hemodialysis via left arm AV fistula. 7. Chronic anemia. 8. Diabetes. 9. Obstructive sleep apnea. 10.GERD. FAMILY HISTORY: Unobtainable. SOCIAL HISTORY: Previous smoker, non-IV drug user or drinker. ALLERGIES: See Internal Medicine note. HOME MEDICATIONS: See Internal Medicine note. REVIEW OF SYSTEMS: A 14 point review of systems was negative unless otherwise described in the HPI above. PHYSICAL EXAMINATION: Not alert to person, time or place. Responsive to painful stimuli. Patient's left lower extremity had a deformity on his arrival, however due to his large habitus it was difficult to appreciate any gross deformity. The patient's left thigh was held in abduction and external rotation and flexion on arrival. There were no breaks in the skin and no appreciated edema or ecchymosis. He otherwise appeared to be neurovascularly intact. He did spontaneously move his EHL, FHL, gastrocnemius, peroneal tibialis anterior and peritoneal musculature with 5/5 strength when applying the knee immobilizer. Patient had brisk capillary refill to the digits and a Dopplerable posterior tibial and dorsalis pedis pulse. RADIOGRAPHS: Radiographs demonstrate a spiral fracture of the left distal femur which was extraarticular. IMPRESSION: A 66-year-old male with left distal femur spiral shaft fracture requiring surgical fixation. PLAN: At this point in time, I am available to proceed with surgical intervention when the patient is cleared for surgery by both the Residential Mortgage Underwriter and anesthesia and I feel the earlier I am able to fix his femur the more impact it can have on stabilizing his H and H and decreasing his pain. Surgery was postponed today for cardiac clearance. Please contact me with further questions regarding the patient's surgical intervention which would include a left femoral retrograde intramedullary nail.
--- NOTE | 2021-03-11 08:04 | REP ---
INDICATION: DYSPNEA COMPARISON: 03/10/2021 TECHNIQUE: Portable AP view of the chest FINDINGS: The mediastinum and cardiac silhouette are stable and within normal limits for portable technique. The lung lundy are clear without acute consolidation, effusion, or pneumothorax. Skeletal structures are intact. IMPRESSION: No focal consolidation or effusion. <Electronically signed by Ezra Hartman > 03/11/21 0800
--- NOTE | 2021-03-11 09:24 | IPNPDOC ---
Text Note Date of Service The patient was seen on 03/11/21. NOTE CRITICAL CARE PROGRESS NOTE: SUBJECTIVE: Patient seen and examined at bedside. There were no overnight events. Patient had episode of hypoglycemic this morning and is on D10 drip. Patient used AVAPS throughout the night. This morning he had a reduction in his hemoglobin with no overt bleeding on exam. He is not currently on any drips. He has a T-max of 98.5. He is negative fluid balance and he received hemodialysis yesterday 5500 cc removed. Patient only endorses left leg pain. All other ROS are negative except as mentioned above PHYSICAL EXAMINATION: VITAL SIGNS: Please see below. GENERAL APPEARANCE: Alert and awake. No respiratory distress and comfortable on AVAPS. Morbidly obese HEENT: no thyromegaly, trachea midline, PERRLA. normal mucous membranes RESPIRATORY: CTA B/L, good air entry. CARDIOVASCULAR: +s1 s2, no murmurs. ABDOMEN: nontender, not distended, +BS EXTREMITIES: Left leg tenderness. No edema or erythema. palpable distal pulses SKIN: no rash, no purpura NEUROLOGICAL: no sensory or motor deficits, orientedx3. Follows commands PERTINENT LABS/IMAGING: Chest x-ray this morning shows cardiomegaly with no acute cardiopulmonary d isease IMPRESSION: 1. Acute on chronic hypercapnic respiratory failure with evidence of concomita nt metabolic acidosis, much improved with the use of AVAPS and status post HD x2 sessions 2. Morbid obesity with MARCELA/OHS causing chronic hypercapnic respiratory failure on home oxygen 3. Left distal femur fracture status post mechanical fall 4. Atrial fibrillation on Eliquis at home, currently rate controlled 5. History of heart failure reduced EF currently no evidence of decompensation 6. History of ESRD on HD 7. Shock undifferentiated resolved 8. Acute on chronic anemia likely secondary to femur fracture 9. Pulmonary hypertension likely group 2/3 10. Hypothyroidism PLAN: * From pulmonary standpoint there is no contraindication for planned surgery. Patient is high risk for postoperative pulmonary complications including respiratory failure, pneumonia, atelectasis, PE. Given this is an urgent surgery need to weigh the benefits and risks. Patient will need prolonged postop monitoring, postop incentive spirometer, DVT prophylaxis, early mobilization if possible. Recommend neuraxial anesthesia if possible. Use perioperative AVAPS. * Judicious use of CATERING COORDINATOR depressants and opiates for pain, recommend Tylenol and NSAIDs first-line * Continue with oxygen via nasal cannula to maintain Sp02 89 to 92%. AVAPS nightly. Eventually will switch to tabletop BiPAP. * Pulmonary will follow VS,Abundiobone, I+O VS, Fishbone, I+O Laboratory Tests 03/11/21 04:54 03/11/21 04:58 Vital Signs Date Time Temp Pulse Resp B/P (MAP) Pulse Ox O2 Delivery O2 Flow Rate FiO2 03/11/21 04:00 2.0 03/11/21 03:24 97.0 83 20 110/55 (73) 98 NIPPV (BIPAP/CPAP) 03/11/21 00:31 30 I&O- Last 24 Hours up to 6 AM 03/11/21 06:00 Intake Total 390 ml Output Total 2500 ml Balance -2110 ml KRISTEN ONOFRE MD Mar 11, 2021 09:24
[2021-03-11] MEDS: PANTOPRAZOLE 40MG VIAL (C9113 PER 1) IV SCH (09:51)
--- NOTE | 2021-03-11 12:22 | IPNPDOC ---
Date Seen The patient was seen on 03/11/21. Progress Note SUBJECTIVE: Hypoglycemia resolved with D10 at 30 cc/h. Anesthesia awaiting cardiac clearance, patient is going on over 24 hours of n.p.o. status. Status post dialysis 03/10/2021 where 5500 mL removed, blood pressure stable. Saturating well on 2 L nasal cannula which is his baseline at home. The patient is awake and alert and oriented x3 for me this morning; however, his mental status can at times wax and wane. Hopefully OR later this evening. PHYSICAL EXAMINATION: VITAL SIGNS: Please see below. GENERAL APPEARANCE: Alert and awake. Morbidly obese. NAD HEENT: No thyromegaly, trachea midline, PERRLA. Normal mucous membranes RESPIRATORY: CTA B/L, no w/r/r CARDIOVASCULAR: +S1S2, no murmurs, rubs, gallops ABDOMEN: nontender, not distended, +BS EXTREMITIES: Right femoral central line in place. Left leg tenderness, ROM not tested, currently in brace. chronic lower extremity lymphedema changes, palpable distal pulses SKIN: no rash, no purpura NEUROLOGICAL: no sensory or motor deficits, oriented x 3. LABORATORY: Please see below IMAGING: Chest x-ray today shows no acute cardiopulmonary disease See chart for all imaging MICRO: Sputum cx ordered, not obtained Blood cultures NG x 2 sets IMPRESSION: 1. Acute on chronic hypercapnic respiratory failure improved, with evidence of concomitant metabolic acidosis from renal failure 2. Morbid obesity with MARCELA/OHS causing chronic hypercapnic respiratory failure on home oxygen 3. Left distal femur fracture status post mechanical fall 4. Hypoglycemia likely 2/2 to NPO status, decreased PO intake 5. Dysphagia 6. Worsening anemia, r/o RASHEL,folic, Vit B12 with underlying anemia of chronic disease 2/2 to renal issues 7. Transaminitis, acute 8. Atrial fibrillation on Eliquis at home, currently rate controlled 9. History of heart failure reduced EF currently no evidence of decompensation 10. History of ESRD on HD 11. Shock undifferentiated resolved 12. Chronic anemia at baseline 13. Pulmonary hypertension likely group 2/3 14. Hypothyroidism PLAN: FLARE MAN: Is awake, cooperative and, per people who are familiar with him, this is his baseline. Ox3 for me; however, to nursing at times does not know why he is here. Avoid FLARE MAN depressants. PULM: HOB 30 degrees. Maintain Sp02 89 to 92%. Doing well on 2 L NC, Bipap as needed and nightly. From pulmonary standpoint patient is high risk for postoperative pulmonary complications including respiratory failure, pneumonia, atelectasis, etc. There is no contraindication for the surgery from pulmonary standpoint per their note. Pulmonary recommends neuraxial anesthesia if possible. Pulmonary consulted to still follow. CARDIO: Anesthesia awaiting cardiac clearance from Dr. Magana today, called this AM and reminded him. He ordered echocardiogram which was done 03/10/21, f.u resutls. Currently he is maintaining MAPs 60-65, denies chest pain. Trops elevated but trending down. Continue to hold BP medications. GI: GI ppx. Concern for dysphagia. Will need swallowing evaluation before resuming PO meds, diet after surgery. Elevated AST/ALT but improving slowly. CMP daily RENAL: S/p HD on 03/09/21 with removal of 3 liters, 03/10/21 received dialysis again. Cr improved, fluid status stable. Daily Cr, Nephrology consulted and following ID: [id number] x 2 sets NG, afebrile. Vanc and cefepime for now for broad spectrum coverage ENDO: Hypoglycemia 03/10/21 with being NPO, two 1/2 amps given and later improve with D10 30 mL/hr. C/w FS Q6H, hypoglycemic protocol ordered. HEME: Hgb 7 today, no s/s of bleeding. Occult blood ordered, DVT px held for lisandra karyn anyway. Transfusing 2 units PRBC today, f/u post tranfusion H/H. F/u ferritin, TIBC, total iron. MSK: Plan is surgery 03/11/[address] Loza for repair of left distal femur fracture. Per anesthesia, will need cardiac and medical clearance. Pain control, adding morphine. LINES/CATHETERS: Right femoral triple-lumen catheter. CODE STATUS: Full code. DISPOSITION: From a medical standpoint the patient has several active clinical risk factors including decompensating heart failure, diabetes and renal insufficiency. The patient is high risk for this intermediate risk surgery. RCRI score 3, class IV risk. Follow-up 's note for cardiac clearance. Discussed case with Dr. Loza (ortho) and Dr. New (pulmonary/CC) 03/10/21. Remains full Code. Surgery scheduled later in day on 03/11/21. VS, I&O, 24H, Fishbone Vital Signs/I&O Vital Signs Date Time Temp Pulse Resp B/P (MAP) Pulse Ox O2 Delivery O2 Flow Rate FiO2 03/11/21 04:00 2.0 03/11/21 03:24 97.0 83 20 110/55 (73) 98 NIPPV (BIPAP/CPAP) 03/11/21 00:31 30 I&O- Last 24 Hours up to 6 AM 03/11/21 06:00 Intake Total 390 ml Output Total 2500 ml Balance -2110 ml Laboratory Data 24H LABS Laboratory Tests 2 03/10/21 12:13: Troponin I High Sensitivity 389.0*H 03/10/21 15:54: Bedside Glucose (Misc Panel) 71L 03/10/21 16:29: Bedside Glucose (Misc Panel) 87 03/10/21 23:24: Bedside Glucose (Misc Panel) 100 03/11/21 04:54: Nucleated Red Blood Cells % (auto) 0.6H, Blood Gas Bicarbonate Standard 27.8H, Arterial Blood pH 7.407, Arterial Blood Partial Pressure CO2 47.0H, Arterial Blood Partial Pressure O2 79.0, Arterial Blood Total CO2 30.4, Arterial Blood HCO3 28.9H, Arterial Blood Base Excess 3.8H, Arterial Blood Oxygen Saturation 94.3L 03/11/21 04:58: Anion Gap 10, Glomerular Filtration Rate 14.8L, Calcium Level 7.2L, Phosphorus Level 3.4#, Magnesium Level 1.8, Total Bilirubin 0.6, Aspartate Amino Transf (AST/SGOT) 95H, Alanine Aminotransferase (ALT/SGPT) 157H, Alkaline Phosphatase 106, Total Protein 6.2L, Albumin 2.3L, Albumin/Globulin Ratio 0.6 03/11/21 11:29: 03/11/21 11:40: Bedside Glucose (Misc Panel) 173H 03/11/21 11:48: CBC/BMP Laboratory Tests 03/11/21 04:54 03/11/21 04:58 Microbiology Microbiology 03/09/21 Blood Culture - Preliminary, Resulted No growth after 24 hours . All specim... 03/09/21 Blood Culture - Preliminary, Resulted No growth after 24 hours . All specim... Adelaida Chandra MD Mar 11, 2021 12:22
[2021-03-11 12:23] LABS: INR 1.32; PROTHROMBIN TIME 16.8 SECONDS (12.7-14.5)
[2021-03-11 12:24] LABS: PARTIAL THROMBOPLASTIN TIME 48.8 SECONDS (25.9-37.0)
--- NOTE | 2021-03-11 15:23 | IPN ---
PROGRESS NOTE DATE: 03/11/2021 SUBJECTIVE: Mr. Valadez is seen this morning at his bedside. He is lying in his bed with head covered with the blanket. I called him and he immediately responded. He was able to tell my name correctly. Nursing staff reports that he has been confused and weak. However, I feel that that is his baseline mentation. He always talks very slow and gets sidetracked. He is waiting for his left femur fracture surgery and currently has a splint. He was dialyzed yesterday again to optimize his condition. OBJECTIVE: VITAL SIGNS: Temperature is 97 degrees Fahrenheit, heart rate 84 per minute and respiratory rate 20 per minute, blood pressure 110/55 mmHg and oxygen saturation 98%. HEENT: His head is atraumatic. Lips are dry but there is no oral thrush or ulcers. HEART: Sounds are irregular. LUNGS: Diminished breath sounds. ABDOMEN: Obese, soft and nontender and bowel sounds are normal. EXTREMITIES: Without any cyanosis or clubbing. Left arm AV fistula is patent. His left lower extremity is in the splint. NEUROLOGICAL: To my assessment he seems to be at about baseline. LABORATORY STUDIES: Today's labs show WBC count 9.0, hemoglobin 7.0 and hematocrit 23.4. Platelets 103. Sodium 138, potassium 4.3, CO2 30, BUN 29 and creatinine 4.33. Glucose 169 and potassium 7.2. Blood gas this morning showed a pH of 7.40, pCO2 47 and pO2 79. Bicarb 28. PROBLEMS: 1. End-stage renal disease. The patient was dialyzed yesterday and he tolerated dialysis treatment very well. 2. Congestive heart failure and hypoxemia. We removed total of 5.5 liters of fluid with two dialysis sessions over the last 36 hours. His volume status seems to be optimal at present. Acidosis has improved and his hypoxemia has also improved. 3. Anemia, most likely this is blood loss anemia due to left femur fracture. He should be transfused at least 1 unit of packed RBCs now and further transfusion as needed during surgery. CBC should be checked again postoperatively. 4. Hyperkalemia. He initially had hyperkalemia which has corrected and resolved. No further intervention is needed at this point. 5. Elevated troponin. The patient is waiting for cardiology clearance in order to go to OR. He is completely asymptomatic from cardiac standpoint other than initial hypotension when he presented.
[2021-03-11 15:57] LABS: HEMATOCRIT 25.6 % (42.0-52.0); HEMOGLOBIN 7.9 g/dl (13.5-17.5); MEAN CORPUSCULAR HEMOGLOBIN 34.1 pg (27.0-33.0); MEAN CORPUSCULAR HGB CONC 30.9 g/dl (32.0-36.5); MEAN CORPUSCULAR VOLUME 110.3 fl (80.0-96.0); PLATELET COUNT, AUTOMATED 108 10^3/uL (150-450); RED BLOOD COUNT 2.32 10^6/uL (4.30-6.10); WHITE BLOOD COUNT 8.6 10^3/uL (4.0-10.0)
[2021-03-11] MEDS: **VANCO AFTER HD** MISC XX SCH (16:00)
[2021-03-11 16:34] LABS: FOLATE 9.1 NG/ML; PERCENT SATURATION 28.1 % (19.7-50.0)
--- NOTE | 2021-03-11 17:50 | ECHO ---
ECHOCARDIOGRAM DATE OF PROCEDURE: 03/10/2021 Age: 66 Gender: Male REFERRING PROVIDER: Adelaida Chandra M.D. REASON FOR THE TESTING: Preoperative. MEASUREMENTS: 2D Measurements: IVS 1.4 cm LV 5.3 cm LVPW 1.2 cm LA 5.5 cm Aorta 3.2 cm IVC 2.6 cm Ascending aorta 3.7 cm Doppler Measurements: Peak velocity across the aortic valve 3.3 m/sec Peak gradient across the aortic valve 44 mmHg Mean gradient across the aortic valve 27 mmHg Peak velocity across the tricuspid valve 2.6 m/sec 2D COMMENTS: 1. Technically limited study due to poor acoustic window secondary to body habitus. 2. Left ventricular size is normal with mildly increased left ventricular wall thickness and a low normal global left ventricular systolic function. The estimated left ventricular systolic ejection fraction is 55-60%. 3. Moderately enlarged left atrium. The right atrium and the right ventricle were not well visualized, but appeared to be mildly enlarged. 4. The atrial septum was not well visualized. 5. Normal aortic root. Mildly dilated ascending aorta at 3.7 cm. 6. Trace pericardial effusion noted in limited views. No evidence of cardiac tamponade. 7. Moderately calcified aortic valve with decrease in leaflet excursion. Mildly calcified mitral annulus with normal anterior mitral valve leaflet motion. The tricuspid valve appeared to be normal in limited views. The pulmonic valve may be mildly dilated, noted in limited views. 8. The inferior vena cava is enlarged. Central venous pressure is most likely elevated. DOPPLER: It detects trace aortic regurgitation, mild tricuspid regurgitation and trace pulmonic regurgitation. The calculated pulmonary artery systolic pressure varies between 40-50 mmHg. Assessment of the left ventricular diastolic function was limited. Patient with underlying atrial fibrillation. IMPRESSION: 1. Low normal global left ventricular systolic function with mild concentric left ventricular hypertrophy. Assessment of the left ventricular diastolic function was limited due to underlying atrial fibrillation. 2. Aortic valve sclerosis with trace aortic regurgitation and moderate aortic stenosis. 3. Mildly dilated ascending aorta at 3.7 cm. 4. Moderately dilated left atrium, as related. No evidence of mitral regurgitation or stenosis. 5. Mild tricuspid regurgitation with moderate pulmonary hypertension. In limited views, the right heart chambers appear to be enlarged. 6. Trace pericardial effusion noted. 7. There are features of elevated central venous pressure. The inferior vena cava is enlarged. 8. Patient is scheduled/planning to have a fracture repair. He is considered to be a moderate to high risk in view of his comorbid conditions. It seems that his anticoagulation therapy has been on hold. It should be restarted if surgery is not done or after the surgery. Case was discussed earlier with his hospitalist. CHUY
--- NOTE | 2021-03-11 17:54 | REP ---
INDICATION: possible aspiration. COMPARISON: Portable chest, 03/11/2021. TECHNIQUE: AP portable chest image was obtained. FINDINGS: There is cardiomegaly and aortic ectasia, consistent with benign essential hypertension. There is pulmonary venous hypertension without congestive heart failure. There is no lobar consolidation or pleural effusion. The upper abdominal bowel gas pattern is normal. There are no bony abnormalities of the chest. IMPRESSION: 1. Findings consistent with hypertension. 2. Pulmonary venous hypertension without overt congestive heart failure. 3. No evidence of lobar consolidation or pleural effusion. <Electronically signed by Vargas Estevez > 03/11/21 [id number]
[2021-03-11] MEDS: D10W 1,000 ML IV SCH (20:24)
[2021-03-11] MEDS: LIDOCAINE 5% (LIDODERM) PATCH TD SCH (20:38)
[2021-03-12] VITALS (16 sets, daily range): BP systolic 108–147; BP diastolic 51–91
[2021-03-12] MEDS: MORPHINE 2 MG/ML 1ML VIAL (J2270) IV PRN ×3 (01:19→14:41)
[2021-03-12 04:56] LABS: HEMATOCRIT 25.6 % (42.0-52.0); HEMOGLOBIN 7.9 g/dl (13.5-17.5); MEAN CORPUSCULAR HEMOGLOBIN 33.9 pg (27.0-33.0); MEAN CORPUSCULAR HGB CONC 30.9 g/dl (32.0-36.5); MEAN CORPUSCULAR VOLUME 109.9 fl (80.0-96.0); PLATELET COUNT, AUTOMATED 114 10^3/uL (150-450); RED BLOOD COUNT 2.33 10^6/uL (4.30-6.10); WHITE BLOOD COUNT 7.9 10^3/uL (4.0-10.0)
[2021-03-12 05:29] LABS: ALBUMIN 2.5 GM/DL (3.2-5.2); BILIRUBIN,TOTAL 0.7 MG/DL (0.2-1.0); CALCIUM LEVEL 7.4 MG/DL (8.8-10.2); CREATININE FOR GFR 5.88 MG/DL (0.70-1.30); GLOMERULAR FILTRATION RATE 10.4 (>49); MAGNESIUM LEVEL 1.9 MG/DL (1.8-2.4); PHOSPHORUS LEVEL 3.2 MG/DL (2.5-4.9); POTASSIUM SERUM 3.9 MEQ/L (3.5-5.1); TOTAL PROTEIN 6.5 GM/DL (6.4-8.2)
--- NOTE | 2021-03-12 05:37 | ECGEPIP ---
[facility] Test Date: 2021-03-11 Pat Name: AIDA SAMAYOA Department: Room: [place] [address] Gender: Male Mailing Clerk: SHAMAR : 1955 Requested By: Adelaida Garcia Order Number: [id number] Reading MD: Lonnie Friedman Measurements Intervals [place] Rate: 80 P: LA: QRS: -3 QRSD: 106 T: 190 QT: 384 QTc: 442 Interpretive Statements Atrial fibrillation with premature ventricular or aberrantly conducted complexes Low voltage QRS, especially in the limb leads and anterolaterally Nonspecific ST-T wave abnormalities No significant change when compared to prior tracing of March 09, 2021 Electronically Signed on 03-12-2021 5:37:28 EST by Lonnie Friedman
[2021-03-12] MEDS: ACETAMINOPHEN TAB 650MG DOSE (2X325MG) PO SCH ×5 (06:00→23:52)
[2021-03-12 06:23] LABS: ABG BASE EXCESS 1.5 (-2.0-2.0); ABG HCO3 26.2 MEQ/L (22.0-26.0); ABG O2 SATURATION 90.6 % (95.0-99.0); ABG PARTIAL PRESSURE CO2 41.9 mmHg (35.0-45.0); ABG PARTIAL PRESSURE O2 63.5 mmHg (75.0-100.0); ABG STANDARD HCO3 25.7 MEQ/L (22.0-26.0); ABG TOTAL CO2 27.5 MEQ/L (23.0-31.0); ABG pH (ARTERIAL) 7.414 UNITS (7.350-7.450)
[2021-03-12] MEDS ORDERED: SODIUM CHLORIDE 0.9% 1000ML IV PRN (07:55)
[2021-03-12] MEDS ORDERED: LIDOCAINE 1% SDV 5ML VIAL SC PRN (07:55)
[2021-03-12] MEDS: PANTOPRAZOLE 40MG VIAL (C9113 PER 1) IV SCH (08:08)
[2021-03-12] MEDS: **NOTE PATIENT COMMENT** MISC XX SCH (09:00)
--- NOTE | 2021-03-12 09:32 | IPNPDOC ---
Text Note Date of Service The patient was seen on 03/12/21. NOTE CRITICAL CARE PROGRESS NOTE: SUBJECTIVE: Patient seen and examined at bedside. Patient is overall improved however he is refusing his AVAPS overnight. He is currently on 2 L nasal cannula and satting 95%. He is complaining of left leg pain. All other ROS are negative except as mentioned above PHYSICAL EXAMINATION: VITAL SIGNS: Please see below. GENERAL APPEARANCE: Alert and awake. Morbidly obese HEENT: no thyromegaly, trachea midline, PERRLA. normal mucous membranes RESPIRATORY: CTA B/L, good air entry. CARDIOVASCULAR: +s1 s2, no murmurs. ABDOMEN: nontender, not distended, +BS EXTREMITIES: Left leg tender. No edema or erythema. palpable distal pulses SKIN: no rash, no purpura NEUROLOGICAL: no sensory or motor deficits, orientedx3. PERTINENT LABS/IMAGING: No chest x-ray today IMPRESSION: 1. Acute on chronic hypercapnic respiratory failure with evidence of concomitant metabolic acidosis, resolved with the use of AVAPS and status post HD x2 sessions. Patiently currently on 2 L nasal cannula. 2. Morbid obesity with MARCELA/OHS causing chronic hypercapnic respiratory failure on home oxygen 3. Left distal femur fracture status post mechanical fall 4. Atrial fibrillation on Eliquis at home, currently rate controlled, anticoagulation on hold 5. History of heart failure reduced EF currently no evidence of decompensation 6. History of ESRD on HD 7. Shock undifferentiated resolved 8. Acute on chronic anemia likely blood loss secondary to femur fracture 9. Pulmonary hypertension likely group 2/3 10. Hypothyroidism PLAN: * The patient is refusing noninvasive ventilation at night. I counseled him extensively on the importance of using NIV during sleep. * From pulmonary standpoint there is no contraindication for planned surgery. Patient is high risk for postoperative pulmonary complications including respiratory failure, pneumonia, atelectasis, PE. Given this is an urgent surgery need to weigh the benefits and risks. Patient will need prolonged postop monitoring, postop incentive spirometer, DVT prophylaxis, early mobilization if possible. Recommend neuraxial anesthesia if possible. Use perioperative BiPAP. * Judicious use of STEAM BLOCKER depressants and opiates for pain, recommend Tylenol and NSAIDs first-line * Continue with oxygen via nasal cannula to maintain Sp02 89 to 92%. Patient should use tabletop BiPAP 18/8 nightly. * Patient should have outpatient follow-up with pulmonary for PFTs and PSG * Patient can be transferred out of the ICU * Pulmonary will signoff please recall if there is any change in status. VS,Fishbone, I+O VS, Fishbone, I+O Laboratory Tests 03/11/21 15:41 03/12/21 04:37 Vital Signs Date Time Temp Pulse Resp B/P (MAP) Pulse Ox O2 Delivery O2 Flow Rate FiO2 03/12/21 08:08 24 03/12/21 07:00 86 132/73 (92) 96 Nasal Cannula 2.0 03/12/21 04:00 97.4 03/11/21 07:00 45 I&O- Last 24 Hours up to 6 AM 03/12/21 06:00 Intake Total 860 ml Output Total 0 ml Balance 860 ml KRISTEN ONOFRE MD Mar 12, 2021 09:32
--- NOTE | 2021-03-12 10:03 | CR ---
CARDIOLOGY CONSULTATION DATE: 03/10/2021 REFERRING PROVIDER: Dr. Ponce Chandra REASON FOR CONSULTATION: Cardiovascular preoperative evaluation by orthopedic surgery. HISTORY OF PRESENT ILLNESS: Baucr[age]cjhw-eufa-old male, a visitor of a friend of a local long term, was going to go for hemodialysis on 03/09/2021 when he fell to the ground. He was brought to the emergency room for further evaluation and was found to have a fracture of the distal left femur. While in the ER, he was found to be hypoxemic with hypercapnic respiratory failure and started on CPAP, then on BiPAP. His lab revealed a potassium of 6.1. Cardiology consult was requested prior to his surgery. When I saw Mr. Pradeep Valadez in the ICU/PCU, he was in supine in bed with his BiPAP mask on. He denies any chest pain, palpitations, dizziness. He denies any syncope or near-syncope. He was supine in bed and IN NO DISTRESS, and his vital signs were stable. He had no focal manifestation in his upper extremities. PAST MEDICAL HISTORY: He has a past medical history positive for hypertension, hyperlipidemia, end-stage renal disease for which he has been on hemodialysis, diabetes mellitus, chronic atrial fibrillation for which he has been on anticoagulation therapy, mild left ventricular systolic dysfunction, chronic obstructive pulmonary disease (COPD) and sleep apnea with chronic hypercapnic respiratory failure for which he has been on oxygen, anemia related to his underlying end-stage renal disease, gastroesophageal reflux disease (GERD), benign prostatic hypertrophy (BPH), and anxiety/depression. PAST SURGICAL HISTORY: Positive for left arm arteriovenous (AV) fistula creation and a permacath placement/removal. MEDICATIONS AT HOME: - aspirin 81 mg daily - atorvastatin 40 mg daily - calcium two tablets three times a day with meals - carvedilol 3.125 mg daily - Colace 100 mg p.o. daily at bedtime - Eliquis 5 mg p.o. twice a day - famotidine 20 mg p.o. twice a day - Humalog insulin on a sliding scale - insulin Toujeo - Invega 3 mg at bedtime - Oxcarbazepine 300 mg twice a day - Tamsulosin 0.4 mg p.o. daily - Venlafaxine ER 150 mg p.o. daily FAMILY HISTORY: Noncontributory. SOCIAL HISTORY: The patient is a visitor of a local long term and has no smoking or ETOH abuse. ALLERGIES: There are no known drug allergies. ADVANCED DIRECTIVE: The patient is a full code. PHYSICAL EXAMINATION: The patient is alert and awake, in no acute distress at rest. His vital signs when I saw him revealed a blood pressure of 120/97 with a pulse of 96, and his oxygen saturation was 100%, and at that time he was using the BiPAP mask. FiO2 was 0.3. He has been afebrile. EXAMINATION OF THE HEAD: Atraumatic. NECK: Revealed no jugular venous distension (JVD). LUNGS: Did not reveal any wheezing or crackles. HEART EXAMINATION: Revealed irregular heart sounds without gallops. The point of maximum impulse (PMI) is displaced inferiorly and laterally. There is no rub. There is a systolic murmur grade 2/6 over the precordium and at the base of the heart, I could not appreciate any radiation. ABDOMEN: Soft and nontender. EXTREMITIES: Revealed just +1 bilateral overall leg edema. NEUROLOGIC EXAMINATION: The patient was able to move his upper extremities. LABORATORY DATA: CBC on 03/10/2021 revealed a WBC of 12.4, hemoglobin 8.1, hematocrit 27.1 and platelets 138,000. BMP on 03/10/2021 revealed a sodium of 138, , potassium 4.4, chloride 100, CO2 of 27, BUN 42, creatinine 4.9. GFR 12.6. Fasting glucose 119. Calcium is 7.6. The magnesium was 1.9. Liver enzymes revealed a total bilirubin of 0.68, AST 129, ALT 184, alkaline phosphatase 122, total protein 6.6. Serum lactic acid on admission was 2.4 and on 03/10/2021 it was 1.0. PT on admission was 22.0 with an INR of 1.8. RSV and SARS Covid-19 were negative on 03/09/2021. ABG on admission revealed a pH of 7.136, pCO2 of 75.8, pO2 of 66.1 and on 03/10/2021 ABG revealed a pH of 7.26, PCO2 of 52.8 and pO2 of 68. IMAGING DATA: Chest x-ray on admission, 03/09/2021, revealed cardiomegaly. Cervical spine x-ray on 03/09/2019 revealed no fracture or subluxation but degenerative spondylosis. Head CT on 03/09/2021 revealed mild vascular calcification and generalized volume loss, otherwise negative. No evidence of skull fracture or intracranial injury. Hip and pelvis x-ray revealed femoral diaphyseal fracture noted at the edge of the view on the left side. No hip or pelvic fracture appreciated. Femur x-ray on 03/09/2021 revealed oblique distal femoral diaphyseal fracture. CT angiogram of the chest on 03/09/2021 revealed no evidence of pulmonary thromboembolic disease but patchy parenchymal infiltrates versus atelectasis. There is upper abdominal ascites reported, questionable ascites. CT of the extremities on 03/09/2021 revealed obliquely-oriented, comminuted fracture of the distal femoral diaphysis on the left side. Chest x-ray on 03/10/2021 revealed no evidence of cardiopulmonary disease present. No significant changes from chest x-ray on admission. Electrocardiogram on 03/09/2021 on admission revealed atrial fibrillation at 77 beats per minute, low voltage QRS complexes in the limb leads. It shows nonspecific ST-T abnormalities. Echocardiogram on 03/10/2021 revealed a mildly depressed global left ventricular systolic function, not new. Also noted was moderate aortic stenosis. IMPRESSION: Fkjyz-amyy-jchk-old male with morbid obesity and chronic respiratory failure fell in the long term and was diagnosed with a fracture of the distal left femur. The patient with multiple risk factors for coronary artery disease (CAD) and no prior cardiac workup but an echocardiogram. He is probably at moderate to high risk for this procedure but he is going for a low-risk surgery and keep me posted if it can be done in the facility. He should be back on his anticoagulation therapy as soon as possible to prevent thromboembolic events. He also should be back on his beta herbert if his blood pressure remains stable to prevent uncontrolled atrial fibrillation. It was a pleasure to participate in the care of Mr. Pradeep Valadez for his underlying cardiac condition. I will see him in the hospital only as needed. Please do not hesitate to call with any questions, and case was discussed earlier today with his hospitalist. CHUY
--- NOTE | 2021-03-12 12:35 | CR.PDOC ---
General Date of Consultation: Mar 12, 2021 Attending Physician: LEELEE FANG MD Consultation Surgical consult for left distal femoral fracture. 66-year-old male with multiple comorbidities who presented to the emergency department status post mechanical fall. History is obtained from the chart. Patient is a difficult historian. Diagnosis by surgeon fire prevention research engineer with the left distal femoral fracture. He has been admitted for his fracture and also for his medical end-stage renal disease, cardiac failure and respiratory failure. He has been medically worked up by music library assistant, cardiology and violin repairer. He is a morbidly obese gentleman with severe medical comorbidities which place him at high risk for any surgical intervention. Medical history and work-up documented on the chart. PAST MEDICAL/SURGICAL HISTORY: Atrial fibrillation on Eliquis, CHF with reduced ejection fraction 45%, pulmonary hypertension, morbid obesity, chronic hypercapnic respiratory failure on home oxygen, end-stage renal disease on hemodialysis via left arm AV fistula, chronic anemia, diabetes, obstructive sleep apnea, GERD FAMILY HISTORY: Unable to SOCIAL HISTORY: Unable to obtain. Per records former smoker. Denies drinking or recreational drug use. Discussed with his power of employment law attorney listed on chart. He states he has power of employment law attorney for medical decisions. The patient is full code. He does not have any family and he is his friend. ALLERGIES: Please see below. HOME MEDICATIONS: Please see below. REVIEW OF SYSTEMS: Unable to obtain as the patient is on noninvasive ventilation and lethargic PHYSICAL EXAMINATION: VITAL SIGNS: Please see below. GENERAL APPEARANCE: Resting comfortably on dialysis. Not tachypneic. Lethargic HEENT: no thyromegaly, trachea midline, PERRLA. normal mucous membranes RESPIRATORY: Breathing comfortably on room air. No respiratory distress, not tachypneic CARDIOVASCULAR: Vital signs stable. ABDOMEN: Morbidly obese nontender, not distended EXTREMITIES: no edema or erythema. palpable distal pulses, left arm AV fistula with bruit Left leg in a knee immobilizer, denies any sensory deficits, good motor to ankle and foot, states his pain is around his distal femur. SKIN: no rash, no purpura NEUROLOGICAL: Lethargic but arousable to painful stimuli, follows simple comman ds and moves all extremities Impression: 1. chronic hypercapnic respiratory failure. 2. Morbid obesity with probable MARCELA/OHS causing chronic hypercapnic respiratory failure on home oxygen 3. Left distal femur fracture status post mechanical fall 4. Atrial fibrillation on Eliquis 5. History of heart failure reduced EF currently no evidence of decompensation 6. History of ESRD on HD 7. Chronic anemia at baseline 9. Pulmonary hypertension Discussed with patient at length the distal femoral fracture. Discussed medical work-up and the consensus that he is at high risk for the surgery. High risk for respiratory failure, cardiac failure and possibly . In terms of his orthopedic surgery. I described to him a retrograde femoral nail. Inherent risk of surgery with nerve and vessel damage knee pain, infection, nonunion, malunion, hardware failure, knee injury. We discussed nonoperative management allowing a possible nonunion. He seems to understand the risk and wants to p roceed with surgery. I have obtained informed consent. I have also discussed the above with his power of employment law attorney listed on her chart. This was witnessed by dialysis nurse Brianna. Power of employment law attorney would like to proceed with the surgery, states he is full code, and consents to any blood products or transfusion. Plan: Patient be n.p.o. at midnight We will try to proceed with retrograde left femoral nail under spinal anesthesia. We will expect extended stay either in recovery or ICU. Vital Signs/I&O Vital Signs Date Time Temp Pulse Resp B/P (MAP) Pulse Ox O2 Delivery O2 Flow Rate FiO2 03/12/21 11:00 97.0 97 18 142/85 Nasal Cannula 2.0 03/12/21 10:00 95 03/12/21 07:00 96 I&O- Last 24 Hours up to 6 AM 03/12/21 05:59 Intake Total 860 ml Output Total 0 ml Balance 860 ml Laboratory Data Labs 24H Laboratory Tests 2 03/11/21 15:41: Nucleated Red Blood Cells % (auto) 0.2H, HF-Kwi-I-Type Natriuretic Peptide [id number] 03/11/21 18:20: Bedside Glucose (Misc Panel) 188H 03/11/21 23:26: Bedside Glucose (Misc Panel) 166H 03/12/21 04:37: Nucleated Red Blood Cells % (auto) 0.0, Anion Gap 8, Glomerular Filtration Rate 10.4L, Calcium Level 7.4L, Phosphorus Level 3.2, Magnesium Level 1.9, Total Bilirubin 0.7, Aspartate Amino Transf (AST/SGOT) 63H, Alanine Aminotransferase ( ALT/SGPT) 128H, Alkaline Phosphatase 107, Total Protein 6.5, Albumin 2.5L, Albumin/Globulin Ratio 0.6 03/12/21 06:07: Blood Gas Bicarbonate Standard 25.7, Arterial Blood pH 7.414, Arterial Blood Partial Pressure CO2 41.9, Arterial Blood Partial Pressure O2 63.5L, Arterial Blood Total CO2 27.5, Arterial Blood HCO3 26.2H, Arterial Blood Base Excess 1.5, Arterial Blood Oxygen Saturation 90.6L CBC/BMP Laboratory Tests 03/11/21 15:41 03/12/21 04:37 Microbiology Microbiology 03/09/21 Blood Culture - Preliminary, Resulted No Growth after 48 hours. All Specime... 03/09/21 Blood Culture - Preliminary, Resulted No Growth after 48 hours. All Specime... Allergies Coded Allergies: No Known Allergies (Verified , 10/01/17) Home Medications Scheduled Apixaban (Eliquis) 5 Mg Tablet, 5 MG PO BID, (Reported) Aspirin (Aspirin EC) 81 Mg Tab, 81 MG PO DAILY, (Reported) Atorvastatin Calcium (Atorvastatin Calcium) 40 Mg Tab, 40 MG PO QHS, (Reported) Calcium Acetate (Calcium Acetate) 667 Mg Tablet, 1,334 MG PO TID, (Reported) Carvedilol (Carvedilol) 3.125 Mg Tablet, 3.125 MG PO DAILY, (Reported) Docusate Sodium (Colace) 100 Mg Capsule, 200 MG PO QHS, (Reported) Famotidine (Famotidine) 20 Mg Tab, 20 MG PO BID, (Reported) Fluticasone Propionate (Fluticasone Propionate) 16 Gm [place].susp, 1 SPRAY NA DAILY, (Reported) Insulin Glargine,Hum.rec.anlog (Toujeo Solostar) 300 Unit/1 Ml Insuln.pen, 20 UNIT SC DAILY, (Reported) Insulin Human Lispro (Humalog) 100 Unit/1 Ml Vial, 1 DOSE SC ACHS, (Reported) Lidocaine/Prilocaine (Lidocaine-Prilocaine Cream) 2.5%/2.5% Cream..g., 1 DOSE TOP ASDIRECTED, (Reported) Apply dime size to port area. Do not rub in, cover with saran wrap to protect clothing. Nystatin (Nystatin Powder) 15 Gm Powder, 1 APPLIC TOP DAILY, (Reported) APPLY TO ABDOMINAL FOLDS AND GROIN AREA Oxcarbazepine (Oxcarbazepine) 300 Mg Tab, 300 MG PO BID, (Reported) Paliperidone (Invega) 3 Mg Tab, 3 MG PO QPM, (Reported) TAKES AT 1700 Sennosides (Senna) 8.6 Mg Tablet, 8.6 MG PO BID, (Reported) Tamsulosin HCl (Flomax) 0.4 Mg Cap, 0.8 MG PO DAILY, (Reported) Venlafaxine HCl (Venlafaxine HCl ER) 150 Mg Cap.er.24h, 150 MG PO DAILY, (Reported) Scheduled PRN Acetaminophen (Acetaminophen) 500 Mg Tablet, 1,000 MG PO BID PRN for PAIN LEVEL 1-4, (Reported) Albuterol Sulf (Albuterol Sulfate) 2.5 Mg/3 Ml Nebu, 1 VIAL NEB Q2H PRN for S OB/WHEEZING, (Reported) Bisacodyl (Bisacodyl) 10 Mg Supp.rect, 10 MG NM DAILY PRN for CONSTIPATION, (Reported) Glycerin/Propylene Glycol (Artificial Tears Drops) 15 Ml Drops, 1 DROP OU BID PRN for DRY EYES, (Reported) Tramadol HCl (Tramadol HCl) 50 Mg Tablet, 50 MG PO BID PRN for PAIN LEVEL 4-7, (Reported) LEELEE FANG MD Mar 12, 2021 12:35
--- NOTE | 2021-03-12 12:45 | IPN ---
NEPHROLOGY PROGRESS NOTE DATE: 03/12/2021 SUBJECTIVE: Mr. Valadez is seen this morning during hemodialysis. He reports feeling hungry and wants to eat. He denies any nausea, vomiting, fever or chills. He has a left femur fracture for which surgery has been postponed multiple times and now he is scheduled for surgery tomorrow. PHYSICAL EXAMINATION: Temperature 97 degrees Fahrenheit, heart rate 97 per minute and respiratory rate 18 per minute. Blood pressure 142/85 mmHg and oxygen saturation 96% on 2 liters oxygen. Head: Atraumatic. Oral mucosa is dry. There is no thrush or ulcers. Neck: Supple and JVD not abnormally elevated. Heart: Sounds are regular. Lungs: With diminished breath sounds due to poor inspiratory effort. Abdomen: Obese and nontender and bowel sounds are normal. Extremities: Without any cyanosis or clubbing. Left lower extremity is in the brace. He has a left arm AV fistula which is currently being used for dialysis. Neurologically: He is at his baseline mentation. LABORATORY DATA: Today's labs show: WBC count 7.9, hemoglobin 7.9, hematocrit 25.6 and platelets 114. Sodium 135, potassium 3.9, CO2 30, BUN 36, creatinine 5.88. Albumin level 2.5. PROBLEMS/PLAN: 1. End-stage renal disease: Patient is being dialyzed and he is tolerating dialysis treatment well. His left arm AV fistula is working. 2. Congestive heart failure/hypervolemia: Volume status seems reasonably well compensated and we are trying to remove about 3 liters of fluid today as tolerated. 3. Mild hyponatremia: Stable and will be corrected with dialysis and fluid removal. No other intervention will be needed. 4. Anemia: His anemia is related to acute blood loss caused by his femur fracture. Patient was given 1 unit of packed RBCs yesterday and we will give him another unit today during dialysis. 5. Left femur fracture: Patient is still waiting for surgery and now he is scheduled for surgery by orthopedics tomorrow.
--- NOTE | 2021-03-12 16:09 | IPNPDOC ---
Text Note Date of Service The patient was seen on 03/12/21. NOTE Subjective: Patient is a 66-year-old male who presented to the emergency depa rtment with hypercapnic respiratory failure. Patient was initially placed on CPAP and had to be transitioned to BiPAP. Patient was also found to have a left distal femur fracture status post mechanical fall. Patient has been seen by orthopedics who will most likely do surgery in the next 24 to 48 hours. Patient was recently on Eliquis. Cardiology was consulted for cardiac clearance based on the request from orthopedic surgery. Patient also has a history of ESRD and has been getting aggressively dialyzed by nephrology. Patient is complaining of some pain in his left leg but states his breathing has improved. Review of systems: General: Patient denies fevers HEENT: Patient denies headaches Cardiovascular: Patient denies chest pain Respiratory: Patient reports improvement in shortness of breath. GI: Patient denies abdominal pain, nausea, vomiting, diarrhea : Patient denies increased frequency or pain with urination Extremities: Patient reports pain in his left thigh as above Neurological: Patient denies numbness or tingling in legs Physical exam: Vitals: See below General: Alert and oriented male patient who had nasal cannula oxygen in place when I walked in. Patient not appear to be in any acute distress. HEENT: Normocephalic, atraumatic, moist mucous membranes. Neck: No lymphadenopathy or thyromegaly Cardiac: Regular rate and rhythm, no murmurs, normal S1, normal S2 Pulm: Clear to auscultation bilaterally. No wheezes, rhonchi, rales Abd: Nondistended, nontender to palpation, normal bowel sounds Ext: No edema bilateral lower extremities Labs: See below Imaging: No new imaging has been performed. Assessment/plan: 66-year-old male who initially presented with acute hypercarbic respiratory failure which improved with BiPAP who can be transitioned to tabletop BiPAP according to pulmonary who is has a left distal femur fracture status post mechanical fall. 1. Acute on chronic hypercapnic respiratory failure with evidence of a chronic metabolic acidosis, resolved status post BiPAP and hemodialysis sessions. Patient will need to continue to use noninvasive ventilation with sleep. I did reemphasize this with the patient at this time. 2. Morbid obesity with MARCELA/OHS causing chronic hypercapnic respiratory failure on home oxygen. Continue to monitor the patient's oxygen levels. BiPAP at night per pulmonary. 3. Left distal femur fracture status post mechanical fall. Patient will need surgical fixation of the fracture done by orthopedic surgery. Cardiology has seen the patient states that the patient is in the moderate to high risk for this procedure due to his underlying chronic conditions however, the patient going for a low risk procedure. Patient should be restarted on his anticoagulation as soon as he can after the procedure to avoid any thrombotic events 4. Hypoglycemia likely secondary to n.p.o. status. Patient can now have a diet with encourage hydration. Solids. 5. Dysphagia. Patient was seen by speech therapy. Dietary recommendations appreciated. 6. Worsening anemia. Most likely secondary to chronic renal disease. We will need to continue to monitor. Transfuse as necessary. 7. Transaminitis. We will need to continue to monitor with daily CMP's. 8. Atrial fibrillation on Eliquis at home, currently rate controlled. Eliquis on hold due to impending surgery. 9. History of heart failure reduced ejection fraction. Patient does not appear to be exacerbation today. 10. History of ESRD on hemodialysis. I appreciate Dr. Duron's help treating the patient. 11. Undifferentiated shock. This is resolved. Patient to be downgraded from ICU status. 12. Hypothyroidism. Continue levothyroxine. DVT Prophylaxis: Mechanical due to impending orthopedic surgery Disposition: Pending surgery for distal femur fracture. VS,Fishbone, I+O VS, Fishbone, I+O Laboratory Tests 03/12/21 04:37 Vital Signs Date Time Temp Pulse Resp B/P (MAP) Pulse Ox O2 Delivery O2 Flow Rate FiO2 03/12/21 14:41 19 03/12/21 14:26 97.1 79 133/91 (105) 99 Nasal Cannula 0.5 03/12/21 10:00 95 I&O- Last 24 Hours up to 6 AM 03/12/21 06:00 Intake Total 860 ml Output Total 0 ml Balance 860 ml MINOO GROSSMAN DO Mar 12, 2021 16:08
[2021-03-12] MEDS: LIDOCAINE 5% (LIDODERM) PATCH TD SCH (21:07)
[2021-03-12] MEDS ORDERED: ONDANSETRON 4MG/2ML VIAL IV PRN (22:00)
[2021-03-12 22:16] LABS: ABG BASE EXCESS 4.2 (-2.0-2.0); ABG HCO3 28.5 MEQ/L (22.0-26.0); ABG O2 SATURATION 87.3 % (95.0-99.0); ABG PARTIAL PRESSURE CO2 41.4 mmHg (35.0-45.0); ABG PARTIAL PRESSURE O2 51.9 mmHg (75.0-100.0); ABG STANDARD HCO3 28.1 MEQ/L (22.0-26.0); ABG TOTAL CO2 29.7 MEQ/L (23.0-31.0); ABG pH (ARTERIAL) 7.455 UNITS (7.350-7.450)
[2021-03-13] VITALS: BP 96/57
[2021-03-13] MEDS: ACETAMINOPHEN TAB 650MG DOSE (2X325MG) PO SCH ×3 (01:47→16:46)
[2021-03-13 04:00] VITALS: BP 106/59
[2021-03-13 05:10] LABS: HEMATOCRIT 28.3 % (42.0-52.0); HEMOGLOBIN 8.7 g/dl (13.5-17.5); MEAN CORPUSCULAR HEMOGLOBIN 33.2 pg (27.0-33.0); MEAN CORPUSCULAR HGB CONC 30.7 g/dl (32.0-36.5); PLATELET COUNT, AUTOMATED 122 10^3/uL (150-450); RED BLOOD COUNT 2.62 10^6/uL (4.30-6.10)
[2021-03-13 05:45] LABS: ALBUMIN 2.6 GM/DL (3.2-5.2); CALCIUM LEVEL 7.1 MG/DL (8.8-10.2); CREATININE FOR GFR 4.2 MG/DL (0.70-1.30); GLOMERULAR FILTRATION RATE 15.3 (>49); MAGNESIUM LEVEL 1.8 MG/DL (1.8-2.4); PHOSPHORUS LEVEL 2.5 MG/DL (2.5-4.9); POTASSIUM SERUM 4.1 MEQ/L (3.5-5.1); TOTAL PROTEIN 6.5 GM/DL (6.4-8.2)
[2021-03-13 06:12] LABS: ABG BASE EXCESS 0.5 (-2.0-2.0); ABG O2 SATURATION 96.6 % (95.0-99.0); ABG PARTIAL PRESSURE CO2 39.6 mmHg (35.0-45.0); ABG PARTIAL PRESSURE O2 91.4 mmHg (75.0-100.0); ABG STANDARD HCO3 24.9 MEQ/L (22.0-26.0); ABG TOTAL CO2 26.2 MEQ/L (23.0-31.0); ABG pH (ARTERIAL) 7.418 UNITS (7.350-7.450)
[2021-03-13] MEDS: PANTOPRAZOLE 40MG VIAL (C9113 PER 1) IV SCH (09:11)
[2021-03-13] MEDS: **NOTE PATIENT COMMENT** MISC XX SCH (09:12)
[2021-03-13 12:00] VITALS: BP 127/64
--- NOTE | 2021-03-13 12:18 | IPNPDOC ---
Text Note Date of Service The patient was seen on 03/13/21. NOTE Subjective: Patient is a 66-year-old male presented to emergency department h ypercapnic respiratory failure. Patient was initially placed on CPAP and then transition to BiPAP. Patient was found to have a left distal femur fracture status post mechanical fall. Patient was seen by orthopedic surgery who is planning on doing surgery today. Patient was very upset earlier today because he is held n.p.o. due to the impending procedure. Patient did not want me to examine him and will only allow me to examine his heart and lungs. Patient did not want to answer any of my questions today. Review of systems: Unable to be obtained as the patient was refusing to answer my questions because he wanted to eat but is n.p.o. due to the impending orthopedic procedure. Physical exam: Vitals: See below General: Alert and oriented male patient who was very upset today. Patient on nasal cannula oxygen in place and did not appear to be in any acute distress. HEENT: Normocephalic, atraumatic, moist mucous membranes. Cardiac: Regular rate and rhythm, no murmurs, normal S1, normal S2 Pulm: Appeared clear to auscultation bilaterally however, patient did not want to cooperate by taking deep breaths and and I was only able to do a very limited exam of the lung lundy Abd: Nondistended, nontender to palpation, normal bowel sounds Ext: Patient had left leg immobilizer in place on the left leg Labs: See below Imaging: No new imaging is been performed Assessment/plan: 66-year-old male who initially presented with acute hypercarbic respiratory failure which resolved with BiPAP can be transitioned to tabletop BiPAP overnight who has a left distal femur fracture status post mechanical fall. 1. Acute on chronic hypercapnic respiratory failure with evidence of chronic m etabolic acidosis, resolved status post BiPAP and hemodialysis. Patient will need to continue to use noninvasive ventilation with sleep. I did reemphasize to the patient this yesterday. 2. Morbid obesity with MARCELA/OHS causing chronic hypercapnic respiratory failure on home oxygen. Patient will need his oxygen levels monitored and BiPAP at night. 3. Left distal femur fracture status post mechanical fall. Patient will need surgical fixation of the fracture done by orthopedic surgery. This should be performed today however, patient is very upset at this time and may refuse the procedure. 4. Hyperglycemia likely secondary to n.p.o. status. Continue to monitor sugars while patient is n.p.o. 5. Dysphagia. Dietary recommendations appreciated. 6. Worsening anemia. Most likely secondary to chronic medical renal disease. Patient did receive a transfusion and his hemoglobin levels are improved. 7. Transaminitis. Continue to monitor. 8. Atrial fibrillation on Eliquis currently rate controlled. Eliquis on hold due to impending orthopedic procedure. 9. History of heart failure with reduced ejection fraction. Does not appear to be in exacerbation. 10. History of ESRD on hemodialysis. Appreciate Dr. Duron's help treating the patient. 11. Undifferentiated shock, resolved. Downgraded from ICU. 12. Hypothyroidism. Continue levothyroxine DVT Prophylaxis: Mechanical due to impending orthopedic procedure Disposition: Pending surgery for distal femur fracture. VS,Fishbone, I+O VS, Fishbone, I+O Laboratory Tests 03/13/21 05:00 Vital Signs Date Time Temp Pulse Resp B/P (MAP) Pulse Ox O2 Delivery O2 Flow Rate FiO2 03/13/21 04:00 97.7 95 17 106/59 (75) 94 Nasal Cannula 0.5 03/12/21 10:00 95 I&O- Last 24 Hours up to 6 AM 03/13/21 06:00 Intake Total 460 ml Output Total 3000 ml Balance -2540 ml MINOO GROSSMAN DO Mar 13, 2021 12:17
--- NOTE | 2021-03-13 12:39 | IPN ---
NEPHROLOGY PROGRESS NOTE DATE: 03/13/2021 SUBJECTIVE: Mr. Valadez was seen this morning on his bedside. He is laying in the bed with head covered by hospital gown. Nursing staff reports that he has been quite angry this morning as he was made nothing by mouth again and he wants to eat. Patient is scheduled for his left femur surgery early afternoon. He was dialyzed yesterday and he tolerated his dialysis well. PHYSICAL EXAMINATION: VITAL SIGNS: Temperature 97.7 degrees Fahrenheit, heart rate 95 per minute, respiratory rate 18 per minute, blood pressure 106/59 mmHg, oxygen saturation 94%. HEAD: Atraumatic. Oral mucosa is somewhat dry. NECK: Supple and jugular venous distention (JVD) not abnormally elevated. HEART SOUNDS: Regular. LUNGS: Diminished breath sounds due to poor inspiratory effort and morbid obesity. ABDOMEN: Soft, obese and nontender. Bowel sounds are normal. EXTREMITIES: Without any cyanosis or clubbing. Left lower extremity is in a brace. There is no edema on his right leg. NEUROLOGIC: He seems to be grossly intact. LABORATORY DATA: Today's labs show WBC count 8.0, hemoglobin 8.7, hematocrit 28.3, platelets 122. Sodium 137, potassium 4.1, BUN 24, creatinine 4.2, calcium level 7.1, phosphorus 2.5. Albumin 2.6. PROBLEMS: 1. End-stage renal disease. Patient was dialyzed yesterday and next dialysis will be scheduled tomorrow, which is a regular day for him. At this point, no emergent need for dialysis today. 2. Congestive heart failure and hypoxemia. Volume status is very well compensated and no intervention is needed at present. 3. Anemia. His anemia did improve with transfusion of 1 unit of packed red blood cells. He can probably be transfused further if needed. At this point, there is no risk for volume overload if he gets another unit of packed red blood cells during or after surgery today. We will recheck his CBC tomorrow and consider transfusing him further if needed. 4. Hyponatremia. His electrolytes are all within normal range and no intervention is needed at present. 5. Left femur fracture. Patient is scheduled for surgery later this afternoon. From a renal standpoint, he is optimum for his surgery.
[2021-03-13 15:25] VITALS: BP 123/56
[2021-03-13] MEDS ORDERED: BISACODYL 10 MG SUPP PR PRN (15:30)
[2021-03-13] MEDS: MORPHINE 2 MG/ML 1ML VIAL (J2270) IV PRN (16:13)
[2021-03-13] MEDS: PALIPERIDONE 3 MG ER TAB (INVEGA) PO SCH (16:47)
[2021-03-13] MEDS: CALCIUM ACETATE 667MG GELCAP PO SCH (16:47)
[2021-03-13 19:37] VITALS: BP 120/62
[2021-03-13] MEDS: LIDOCAINE 5% (LIDODERM) PATCH TD SCH (20:47)
[2021-03-13] MEDS: OXcarbazepine 300 MG TAB PO SCH (20:47)
[2021-03-13] MEDS: SENNA 8.6 MG TAB (SENOKOT) PO SCH (20:47)
[2021-03-13] MEDS: ATORVASTATIN 20 MG TAB PO SCH (20:47)
[2021-03-13] MEDS: traMADol 50 MG TAB PO PRN (20:48)
[2021-03-13] MEDS: FAMOTIDINE 20 MG TAB PO SCH (20:48)
[2021-03-13] MEDS: DOCUSATE SODIUM 100MG CAPSULE PO SCH (20:49)
[2021-03-14] VITALS: BP 136/80
[2021-03-14] MEDS: ACETAMINOPHEN TAB 650MG DOSE (2X325MG) PO SCH ×4 (00:40→18:09)
[2021-03-14 04:00] VITALS: BP 110/70
[2021-03-14 06:25] LABS: MEAN CORPUSCULAR HEMOGLOBIN 33.1 pg (27.0-33.0); MEAN CORPUSCULAR VOLUME 110.3 fl (80.0-96.0); PLATELET COUNT, AUTOMATED 114 10^3/uL (150-450); RED BLOOD COUNT 2.72 10^6/uL (4.30-6.10); WHITE BLOOD COUNT 8.3 10^3/uL (4.0-10.0)
[2021-03-14 06:51] LABS: ALBUMIN 2.5 GM/DL (3.2-5.2); BILIRUBIN,TOTAL 0.9 MG/DL (0.2-1.0); CALCIUM LEVEL 7.2 MG/DL (8.8-10.2); CREATININE FOR GFR 6.3 MG/DL (0.70-1.30); GLOMERULAR FILTRATION RATE 9.6 (>49); MAGNESIUM LEVEL 2.1 MG/DL (1.8-2.4); PHOSPHORUS LEVEL 4.6 MG/DL (2.5-4.9); POTASSIUM SERUM 4.6 MEQ/L (3.5-5.1); TOTAL PROTEIN 6.8 GM/DL (6.4-8.2)
[2021-03-14 07:24] VITALS: BP 97/54
[2021-03-14] MEDS ORDERED: SODIUM CHLORIDE 0.9% 1000ML IV PRN (07:55)
[2021-03-14] MEDS ORDERED: LIDOCAINE 1% SDV 5ML VIAL SC PRN (07:55)
[2021-03-14] MEDS: CARVedilol 3.125 MG TAB PO SCH (08:43)
[2021-03-14] MEDS: TAMSULOSIN 0.4 MG CAP PO SCH (10:34)
[2021-03-14] MEDS: SENNA 8.6 MG TAB (SENOKOT) PO SCH ×2 (10:34→21:31)
[2021-03-14] MEDS: PANTOPRAZOLE 40MG VIAL (C9113 PER 1) IV SCH (10:34)
[2021-03-14] MEDS: OXcarbazepine 300 MG TAB PO SCH ×2 (10:34→21:33)
[2021-03-14] MEDS: NYSTATIN 100,000 UNITS/GM TOPICAL PWD 15 GM TOP SCH (10:34)
[2021-03-14] MEDS: FAMOTIDINE 20 MG TAB PO SCH ×2 (10:35→21:34)
[2021-03-14] MEDS: **NOTE PATIENT COMMENT** MISC XX SCH (10:35)
[2021-03-14] MEDS: VENLAFAXINE **XR** 75MG CAPSULE PO SCH (10:35)
[2021-03-14] MEDS: FLUTICASONE PROP 0.05% NASAL SPRAY 16 GM (FLONASE) SCH (10:35)
[2021-03-14] MEDS: CALCIUM ACETATE 667MG GELCAP PO SCH ×3 (10:37→18:09)
[2021-03-14] MEDS ORDERED: LEVALBUTEROL 1.25 MG/0.5 ML CONCENTRATE NEB NEB ONE (11:15)
--- NOTE | 2021-03-14 11:33 | REP ---
INDICATION: sob. COMPARISON: 03/11/2021. TECHNIQUE: Single portable AP view of the chest was performed. FINDINGS: There is cardiomegaly. The mediastinal silhouette is unchanged. Vascular congestion is again noted. No new infiltrate is seen. There is mild thickening along the minor fissure. IMPRESSION: Cardiomegaly and vascular congestion appears stable with no new infiltrate. <Electronically signed by Inder Hollis > 03/14/21 1125
[2021-03-14 12:00] VITALS: BP 129/70
--- NOTE | 2021-03-14 12:58 | IPN ---
PROGRESS NOTE DATE: 03/14/2021 SUBJECTIVE: Mr. Valadez is seen this morning on his bedside. He was sent to dialysis this morning, however the patient refused to have dialysis. Prior to this yesterday, he was scheduled for his left femur surgery for fracture and according to the nursing staff he refused to have surgery. Patient is quite upset when I talked to him. He said that he did not mean to refuse, he got confused and upset where he was refusing. He now understands that he is short of breath and he needs to have dialysis and he also understands that he needs to have his left leg surgery done for fractured femur. OBJECTIVE: VITAL SIGNS: Temperature is 98.2 degrees Fahrenheit, heart rate is 78 per minute and respiratory rate is 22 per minute. Blood pressure is 97/54 mmHg and oxygen saturation is 92% on 6 liters of oxygen. HEENT: His head is atraumatic. Face is slightly flushed. NECK: Neck veins are difficult to be assessed. HEART: Heart sounds are irregular. LUNGS: Bilateral expiratory wheezing. ABDOMEN: Obese and nontender. Bowel sounds are present. EXTREMITIES: Without any cyanosis or clubbing. His left lower extremity remains in the splint. LABORATORY DATA: Today's labs shows WBC count of 8.3, hemoglobin of 9.0 and hematocrit 30, platelets are 114,000. Sodium 137, potassium 4.6, CO2 31, BUN 32 and creatinine 6.30. Glucose is 240 and calcium is 7.2. Total protein is 6.8 and albumin is 2.5. PROBLEMS: 1. Endstage renal disease. Patient was brought to the dialysis room this morning, however he refused to have dialysis. I have talked to him now and he is willing to go back to have dialysis this afternoon. We will try it again. 2. Shortness of breath, he is quite wheezy at present and short of breath. We are getting a stat portable chest x-ray and also going to treat him with bronchodilator nebulizer. He is probably mildly volume overloaded and will need dialysis for fluid removal. I have explained to the patient and he is now agreeable to go for dialysis. 3. Anemia. His anemia is stable and improved following transfusion. No urgent intervention is needed now. 4. Left femur fracture. Patient was scheduled for surgery yesterday, however it got canceled as the patient refused to have surgery. I have discussed with him and explained to him and he is now agreeable. I will convey to primary care team and orthopedics to reschedule his surgery. I will be more than happy to talk to the patient once his surgery gets rescheduled.
--- NOTE | 2021-03-14 13:15 | IPNPDOC ---
Text Note Date of Service The patient was seen on 03/14/21. NOTE Subjective: Patient is a 66-year-old male presented emergency department with hypercapnic respiratory failure. Patient was initially placed on CPAP and then transition to BiPAP. Patient was found to have a left distal femur fracture status post mechanical fall. Patient was seen by orthopedic surgery who was planning on doing surgery yesterday however, the patient got down to PACU and began refusing. Patient was very upset because he was being held n.p.o. Apparently, the patient has a history of schizophrenia or schizoaffective disorder according to his healthcare proxy and according to staff over at [facility] he is very paranoid and take some time to warm up to people before he can trust them. Patient was amenable to speak with me today but saying he felt ill and felt very hot. Patient was wondering if the room temperature could return down. Patient did not have any specific complaints today other than feeling warm. Review of systems: General: Patient denies fevers HEENT: Patient denies headaches Cardiovascular: Patient denies chest pain Respiratory: Patient denies shortness of breath, cough GI: Patient denies abdominal pain, nausea, vomiting, diarrhea : Patient denies increased frequency or pain with urination Extremities: Patient denies swelling or pain in extremities Neurological: Patient denies numbness or tingling in legs Physical exam: Vitals: See below General: Alert and oriented male patient who was upset but less so than the day prior who was on nasal cannula oxygen. Patient not appear to be in any acute distress. HEENT: Normocephalic, atraumatic, moist mucous membranes. Neck: No lymphadenopathy or thyromegaly Cardiac: Regular rate and rhythm, no murmurs, normal S1, normal S2 Pulm: End expiratory wheezing heard in the lower lung lundy Abd: Nondistended, nontender to palpation, normal bowel sounds Ext: No edema bilateral lower extremities Labs: See below Imaging: Chest x-ray performed on 03/14/2021 is reported to cardiomegaly and vascular congestion appears stable with no new infiltrate. Assessment/plan: 66-year-old male who initially presented for acute hypercapnic respiratory failure which resolved with BiPAP who was found to have a left femur fracture status post mechanical fall who is refusing surgery yesterday. 1. Acute on chronic hypercapnic respiratory failure with evidence of chronic m etabolic acidosis, resolved status post BiPAP and hemodialysis. Continue noninvasive ventilation with sleep. I did reemphasize that this to the patient. 2. Morbid obesity with MARCELA/OHS causing chronic hypercapnic respiratory failure on home oxygen. Continue monitoring oxygen levels and continue BiPAP at night. 3. Left distal femur fracture status post mechanical fall. Patient was supposed to have surgical fixation of this done by orthopedic surgery yesterday however, patient refused. Patient appears to be willing to go through with the surgery now and states that he gets confused and upset and starts refusing things. I have [facility] staff working with the patient as they know him better and apparently the patient takes some time to warm up to people before he trust them. We will continue to keep the patient in knee immobilizer until surgery is performed. 4. Hypoglycemia likely secondary to n.p.o. status. Continue to monitor patient sugar. 5. Dysphagia. Dietary recommendations appreciated. 6. Worsening anemia. Likely secondary to chronic medical renal disease. Received transfusion hemoglobin levels are stable. 7. Transaminitis. Resolved 8. Atrial fibrillation on Eliquis currently rate controlled. Eliquis is on hold due to impending orthopedics procedure. 9. Heart failure reduced ejection fraction. Does not appear to be exacerbation. Continue hemodialysis. 10. History of ESRD on hemodialysis. Appreciate Dr. Duron's help treating the patient. 11. Schizophrenia/schizoaffective disorder. Patient's healthcare proxy states patient has a psychiatric history. Continue home psychiatric medications. Psych consult was placed yesterday for capacity evaluation however, patient refused. Based on my conversation today, patient appears to have capacity to make his decisions but was just getting very upset yesterday. 12. Hypothyroidism. Continue levothyroxine. DVT Prophylaxis: Mechanical due to impending orthopedic procedure Disposition: Pending surgery. VS,Fishbone, I+O VS, Fishbone, I+O Laboratory Tests 03/14/21 05:36 Vital Signs Date Time Temp Pulse Resp B/P (MAP) Pulse Ox O2 Delivery O2 Flow Rate FiO2 03/14/21 12:00 98.1 74 20 129/70 (89) 89 Nasal Cannula 3.0 03/12/21 10:00 95 I&O- Last 24 Hours up to 6 AM 03/14/21 06:00 Intake Total 240 ml Output Total 0 ml Balance 240 ml MINOO GROSSMAN DO Mar 14, 2021 13:15
[2021-03-14 17:20] VITALS: BP 112/70
[2021-03-14] MEDS: PALIPERIDONE 3 MG ER TAB (INVEGA) PO SCH (18:08)
[2021-03-14 20:00] VITALS: BP 115/74
[2021-03-14] MEDS: DOCUSATE SODIUM 100MG CAPSULE PO SCH (21:00)
[2021-03-14] MEDS: ATORVASTATIN 20 MG TAB PO SCH (21:31)
[2021-03-14] MEDS: LIDOCAINE 5% (LIDODERM) PATCH TD SCH (21:32)
[2021-03-15] VITALS: BP 108/78
[2021-03-15] MEDS: traMADol 50 MG TAB PO PRN (00:57)
[2021-03-15] MEDS: ACETAMINOPHEN TAB 650MG DOSE (2X325MG) PO SCH ×4 (00:58→18:00)
[2021-03-15 04:00] VITALS: BP 110/82
[2021-03-15 04:08] LABS: HEMATOCRIT 30.9 % (42.0-52.0); HEMOGLOBIN 9.3 g/dl (13.5-17.5); MEAN CORPUSCULAR HEMOGLOBIN 33.6 pg (27.0-33.0); MEAN CORPUSCULAR HGB CONC 30.1 g/dl (32.0-36.5); MEAN CORPUSCULAR VOLUME 111.6 fl (80.0-96.0); PLATELET COUNT, AUTOMATED 116 10^3/uL (150-450); RED BLOOD COUNT 2.77 10^6/uL (4.30-6.10); WHITE BLOOD COUNT 9.3 10^3/uL (4.0-10.0)
[2021-03-15 04:33] LABS: ALBUMIN 2.6 GM/DL (3.2-5.2); BILIRUBIN,TOTAL 0.9 MG/DL (0.2-1.0); CALCIUM LEVEL 7.9 MG/DL (8.8-10.2); CREATININE FOR GFR 4.36 MG/DL (0.70-1.30); GLOMERULAR FILTRATION RATE 14.6 (>49); PHOSPHORUS LEVEL 3.8 MG/DL (2.5-4.9); POTASSIUM SERUM 4.8 MEQ/L (3.5-5.1); TOTAL PROTEIN 6.9 GM/DL (6.4-8.2)
[2021-03-15 08:00] VITALS: BP 115/54
[2021-03-15] MEDS: SENNA 8.6 MG TAB (SENOKOT) PO SCH ×2 (08:47→21:43)
[2021-03-15] MEDS: PANTOPRAZOLE 40MG VIAL (C9113 PER 1) IV SCH (08:47)
[2021-03-15] MEDS: VENLAFAXINE **XR** 75MG CAPSULE PO SCH (08:47)
[2021-03-15] MEDS: FAMOTIDINE 20 MG TAB PO SCH ×2 (08:47→21:42)
[2021-03-15] MEDS: CALCIUM ACETATE 667MG GELCAP PO SCH ×3 (08:48→18:00)
[2021-03-15] MEDS: TAMSULOSIN 0.4 MG CAP PO SCH (08:48)
[2021-03-15] MEDS: CARVedilol 3.125 MG TAB PO SCH (08:48)
[2021-03-15] MEDS: OXcarbazepine 300 MG TAB PO SCH ×2 (08:48→21:43)
[2021-03-15] MEDS: NYSTATIN 100,000 UNITS/GM TOPICAL PWD 15 GM TOP SCH (08:49)
[2021-03-15] MEDS: FLUTICASONE PROP 0.05% NASAL SPRAY 16 GM (FLONASE) SCH (08:49)
[2021-03-15] MEDS: **NOTE PATIENT COMMENT** MISC XX SCH (08:50)
[2021-03-15] MEDS ORDERED: predniSONE 20 MG TAB PO SCH (09:00)
[2021-03-15 12:00] VITALS: BP 102/54
[2021-03-15] MEDS: LEVALBUTEROL 1.25 MG/0.5 ML CONCENTRATE NEB INH SCH ×4 (12:29→23:26)
--- NOTE | 2021-03-15 12:35 | IPN ---
NEPHROLOGY PROGRESS NOTE DATE: 03/15/2021 SUBJECTIVE: Mr. Valadez is seen this morning on his bedside. He is still short of breath and has some obvious wheezing. He did finish his breakfast this morning. He denies any fever or chills. He does have some cough, but no hemoptysis or pleuritic type of chest pain. His left leg remains in the brace and there is some obvious deformity due to femur fracture. PHYSICAL EXAMINATION: Temperature 97.8 degrees Fahrenheit, heart rate 80 per minute and respiratory rate 20 per minute. Blood pressure 112/70 mmHg and oxygen saturation 90%. He is currently on 5 liters of oxygen. Head: Atraumatic. Neck: Supple and JVD difficult to be assessed. Heart: Sounds are irregular in rhythm. Lungs: Diminished breath sounds and expiratory wheezing. Abdomen: Obese, soft and nontender and bowel sounds are normal. Extremities: Without any cyanosis or clubbing. Left arm AV fistula is patent. His left lower extremity is in the brace and still has a deformity due to femur fracture. Neurologically: He is at his baseline mentation. LABORATORY DATA: Today's labs show: WBC count 9.3, hemoglobin 9.3, hematocrit 30.9, platelets 116. Sodium 136, potassium 4.8, CO2 332, BUN 22, creatinine 4.36, glucose 337, calcium 7.9. Total protein 6.9 and albumin 2.6. PROBLEMS/PLAN: 1. End-stage renal disease: Patient was dialyzed yesterday and at this point there is no emergent need for dialysis. His electrolytes are stable and we will plan next dialysis for tomorrow. 2. Shortness of breath: His volume status clinically seems well compensated. He continues to have wheezing and we are going to order nebulizer treatments for him. We will also try to remove at least 3 liters of fluid with the next dialysis tomorrow. 3. Anemia: At present his anemia is stable and we will continue to monitor closely. He is likely to require further transfusion after his hip surgery. 4. Left femur fracture: Patient refused surgery previously; however, he is now willing to go for surgery and orthopedics is being re-consulted by the Hospitalist Service.
[2021-03-15] MEDS ORDERED: VARIBAR PUDDING 40% w/v 230ML TUBE As Ordered ONE (14:03)
[2021-03-15] MEDS ORDERED: E-Z-PAQUE 96% w/w SUSP 176GM BTL As Ordered ONE (14:04)
[2021-03-15] MEDS ORDERED: VARIBAR NECTAR 40% w/v 240ML SUSP BTL As Ordered ONE (14:04)
[2021-03-15] MEDS ORDERED: BARIUM SULFATE 700 MG TABLET (E-Z-DISK) As Ordered ONE (14:04)
--- NOTE | 2021-03-15 14:22 | IPNPDOC ---
Text Note Date of Service The patient was seen on 03/15/21. NOTE Subjective: Patient is a 66-year-old male presented emergency department hyp ercapnic respiratory failure. Patient was initially placed on CPAP and transition to BiPAP. Patient was found to have a left distal femur fracture status post mechanical fall. Patient was seen by orthopedic surgery is planning on doing surgery on Thursday however, patient got down to PACU and began refusing. Patient was very upset because he was unable to eat. Apparently, the patient has a history of schizophrenia or schizoaffective disorder according to his healthcare proxy and according to staff over at [facility] he is very paranoid and take some time to warm up to people where he can trust them. Patient is now amenable to surgery and states he is feeling better today. Review of systems: General: Patient denies fevers HEENT: Patient denies headaches Cardiovascular: Patient denies chest pain Respiratory: Patient denies shortness of breath, cough GI: Patient denies abdominal pain, nausea, vomiting, diarrhea : Patient denies increased frequency or pain with urination Extremities: Patient denies swelling or pain in extremities Neurological: Patient denies numbness or tingling in legs Physical exam: Vitals: See below General: Alert and oriented male patient who was sitting up in bed with nasal cannula oxygen in place when I walked in. Patient did not appear to be in any acute distress. HEENT: Normocephalic, atraumatic, moist mucous membranes. Neck: No lymphadenopathy or thyromegaly Cardiac: Regular rate and rhythm, no murmurs, normal S1, normal S2 Pulm: End expiratory wheezing heard throughout the lung lundy Abd: Nondistended, nontender to palpation, normal bowel sounds Ext: No edema bilateral lower extremities Labs: See below Imaging: No new imaging is been performed Assessment/plan: 66-year-old male initially presented for acute hypercapnic respiratory failure which resolved with BiPAP who was found to have a left femur fracture status post mechanical fall who is refusing surgery 2 days ago. 1. Acute on chronic hypercapnic respiratory failure with evidence of chronic metabolic acidosis, resolved status post BiPAP and hemodialysis. Continued on invasive ventilation with sleep. I did reemphasize the patient needs to wear his BiPAP at night to the patient. 2. Morbid obesity with MARCELA/OHS causing chronic hypercapnic respiratory failure who is on home oxygen. Continue maintenance of the patient's home oxygen. 3. Left distal femur fracture status post mechanical fall. Patient was was have surgical fixation done by orthopedic surgery yesterday however the patient refused. Patient was willing to go through the surgery now and states that he gets confused and upset and starts refusing things. I did speak with on-call o rthopedic surgeon who will contact his colleague who has seen the patient in order to come up with a plan of when the surgery will happen. 4. Hypoglycemia secondary to n.p.o. status. Continue to monitor patient's sugars. This is resolved at this time. 5. Dysphagia. Dietary recommendations appreciated. Patient had barium cookie swallow done today. 6. Worsening anemia. Likely secondary to chronic medical renal disease with fracture. Refuse transfusion hemoglobin are stable. 7. Transaminitis, resolved. 8. Atrial fibrillation on Eliquis currently rate controlled. Eliquis on hold d ue to impending orthopedic procedure. 10. History of ESRD on hemodialysis. I appreciate Dr. Duron's help treating patient. 11. Schizophrenia/schizoaffective disorder. Patient apparently has a p sychiatric history. We will continue his psychiatric medications. 12. Hypothyroidism. Continue levothyroxine. 13. COPD exacerbation. Patient is been more wheezing over the last 2 days and required more oxygen. Start prednisone 40 mg p.o. daily x5 days. DVT Prophylaxis: Mechanical due to impending orthopedic procedure Disposition: Pending patient having surgery VS,Fishbone, I+O VS, Fishbone, I+O Laboratory Tests 03/15/21 03:43 Vital Signs Date Time Temp Pulse Resp B/P (MAP) Pulse Ox O2 Delivery O2 Flow Rate FiO2 03/15/21 12:32 20 03/15/21 12:00 5.0 03/15/21 08:48 66 112/71 03/15/21 08:00 97.9 90 Nasal Cannula 03/12/21 10:00 95 I&O- Last 24 Hours up to 6 AM 03/15/21 06:00 Intake Total 780 ml Output Total 2000 ml Balance -1220 ml MINOO GROSSMAN DO Mar 15, 2021 14:21
[2021-03-15] MEDS ORDERED: LEVALBUTEROL 1.25 MG/0.5 ML CONCENTRATE NEB INH PRN (15:20)
[2021-03-15 16:00] VITALS: BP 127/55
[2021-03-15] MEDS ORDERED: methylPREDNISolone 125MG 2ML VIAL IV ONE (16:00)
[2021-03-15] MEDS: PALIPERIDONE 3 MG ER TAB (INVEGA) PO SCH (17:00)
--- NOTE | 2021-03-15 17:24 | REP ---
INDICATION: aspiration. COMPARISON: None. TECHNIQUE: The procedure was performed by RUTH ANN Burns, under the direct supervision of Dr. Hollis. The procedure was performed with Elvia Abraham from speech pathology present. 5 ml aliquots of nectar, honey, pudding, mixed fruit, soft food, hard food and pill consistency barium was administered. FINDINGS: Penetration and aspiration was seen with nectar consistency barium. All other consistencies of barium the patient was able to successfully swallow without penetration or aspiration The detailed report of this examination will be provided by speech pathology. IMPRESSION: Penetration and aspiration were seen with nectar consistency barium. All other consistencies of barium the patient was able to successfully swallow without penetration or aspiration. Please see detailed speech pathology report for further evaluation. 2.5 minutes of fluoroscopy time was utilized for this procedure. Some fluoroscopic images are performed with last image hold technology. These images require no additional radiation <Electronically signed by Mandi Cross > 03/15/21 [id number] <Electronically signed by Inder Hollis > 03/15/21 [id number]
--- NOTE | 2021-03-15 17:41 | REP ---
INDICATION: shortness of breath, wheezing. COMPARISON: 03/14/2021. TECHNIQUE: Single portable AP view of the chest was performed. FINDINGS: There is barium in the esophagus from today's modified barium swallow.Cardiomegaly persists. The mediastinal silhouette is unchanged. Vascular congestion persists. There is no new infiltrate. IMPRESSION: Stable exam. <Electronically signed by Inder Hollis > 03/15/21 [id number]
[2021-03-15 20:00] VITALS: BP 140/74
[2021-03-15] MEDS: DOCUSATE SODIUM 100MG CAPSULE PO SCH (21:00)
[2021-03-15] MEDS: LIDOCAINE 5% (LIDODERM) PATCH TD SCH (21:42)
[2021-03-15] MEDS: ATORVASTATIN 20 MG TAB PO SCH (21:43)
[2021-03-16] VITALS: BP 155/88
[2021-03-16] MEDS: ACETAMINOPHEN TAB 650MG DOSE (2X325MG) PO SCH ×5 (01:53→17:05)
[2021-03-16] MEDS: LEVALBUTEROL 1.25 MG/0.5 ML CONCENTRATE NEB INH SCH ×6 (03:07→23:54)
[2021-03-16 04:00] VITALS: BP 95/50
[2021-03-16 05:59] LABS: ABG BASE EXCESS -0.2 (-2.0-2.0); ABG HCO3 26.5 MEQ/L (22.0-26.0); ABG O2 SATURATION 97.5 % (95.0-99.0); ABG PARTIAL PRESSURE CO2 54.3 mmHg (35.0-45.0); ABG PARTIAL PRESSURE O2 112.9 mmHg (75.0-100.0); ABG STANDARD HCO3 24.3 MEQ/L (22.0-26.0); ABG TOTAL CO2 28.2 MEQ/L (23.0-31.0); ABG pH (ARTERIAL) 7.307 UNITS (7.350-7.450)
[2021-03-16 07:25] LABS: HEMOGLOBIN 8.7 g/dl (13.5-17.5); MEAN CORPUSCULAR HEMOGLOBIN 33.5 pg (27.0-33.0); MEAN CORPUSCULAR VOLUME 111.5 fl (80.0-96.0); PLATELET COUNT, AUTOMATED 135 10^3/uL (150-450); WHITE BLOOD COUNT 7.2 10^3/uL (4.0-10.0)
[2021-03-16 08:00] VITALS: BP 120/67
[2021-03-16] MEDS: SENNA 8.6 MG TAB (SENOKOT) PO SCH ×2 (08:01→20:13)
[2021-03-16] MEDS: FAMOTIDINE 20 MG TAB PO SCH ×2 (08:02→20:14)
[2021-03-16] MEDS: CALCIUM ACETATE 667MG GELCAP PO SCH ×3 (08:02→17:06)
[2021-03-16] MEDS: VENLAFAXINE **XR** 75MG CAPSULE PO SCH (08:02)
[2021-03-16] MEDS: PANTOPRAZOLE 40MG VIAL (C9113 PER 1) IV SCH (08:02)
[2021-03-16] MEDS: methylPREDNISolone 40MG 1ML VIAL IV SCH ×2 (08:02→20:13)
[2021-03-16] MEDS: TAMSULOSIN 0.4 MG CAP PO SCH (08:02)
[2021-03-16] MEDS: CARVedilol 3.125 MG TAB PO SCH (08:03)
[2021-03-16] MEDS: OXcarbazepine 300 MG TAB PO SCH ×2 (08:03→20:14)
[2021-03-16] MEDS: NYSTATIN 100,000 UNITS/GM TOPICAL PWD 15 GM TOP SCH (08:04)
[2021-03-16] MEDS: **NOTE PATIENT COMMENT** MISC XX SCH (08:05)
[2021-03-16 08:11] LABS: ALBUMIN 2.4 GM/DL (3.2-5.2); BILIRUBIN,TOTAL 0.7 MG/DL (0.2-1.0); CALCIUM LEVEL 7.7 MG/DL (8.8-10.2); CREATININE FOR GFR 5.99 MG/DL (0.70-1.30); GLOMERULAR FILTRATION RATE 10.1 (>49); MAGNESIUM LEVEL 2.2 MG/DL (1.8-2.4); PHOSPHORUS LEVEL 3.7 MG/DL (2.5-4.9); POTASSIUM SERUM 4.8 MEQ/L (3.5-5.1); TOTAL PROTEIN 6.8 GM/DL (6.4-8.2)
[2021-03-16] MEDS ORDERED: LIDOCAINE 1% SDV 5ML VIAL SC PRN (08:15)
[2021-03-16] MEDS ORDERED: SODIUM CHLORIDE 0.9% 1000ML IV PRN (08:15)
[2021-03-16] MEDS: FLUTICASONE PROP 0.05% NASAL SPRAY 16 GM (FLONASE) SCH (09:00)
[2021-03-16] MEDS: HumaLOG INSULIN (NovoLOG) PER UNIT SC SCH ×4 (09:04→20:15)
[2021-03-16] MEDS: LEVEMIR (INSULIN DETEMIR) 1 UNITS/0.01ML SC SCH (09:04)
--- NOTE | 2021-03-16 11:08 | IPN ---
INPATIENT NEPHROLOGY PROGRESS NOTE DATE: 03/16/2021 SUBJECTIVE: Pradeep is seen and examined in the Hemodialysis Unit receiving a treatment. He is lethargic this morning, does not speak in full sentences with me. He is able to tell me his name and he follows simple commands, but he does not converse. His dialysis treatment thus far has been uneventful. PHYSICAL EXAMINATION: Vital signs: Temperature 97.6, pulse 86, respiratory rate 20, blood pressure 120/67, saturating 97% on 5 liters nasal cannula. Intake yesterday was only recorded as 400. Weight on the bed scale today was 156.5 kg. General: Patient is seen receiving his dialysis treatment awake, alert, follows simple commands and is able to tell me his name, but is otherwise lethargic looking, but in no acute distress. HEENT: Tongue is moist. Neck: Jugular veins are difficult to assess secondary to body habitus. Heart sounds: Irregular S1 and S2. There is no significant edema on the right lower extremity or on the left lower extremity. Lungs: Wheezing, but no accessory muscle use, no tachypnea. He looks comfortable on nasal cannula. Abdomen: Obese and soft. Extremities: There is a fistula in the left arm which is currently in use and there is a brace on the left leg. There is no edema in the right leg. LABORATORY DATA: Blood gas noted pH 7.3, PCO2 54, PO2 112. Hemoglobin 8.7, platelets 135. Sodium 136, potassium 4.8, glucose 461. Magnesium 2.2. IMAGING STUDIES: Chest x-ray done yesterday shows vascular congestion. INPATIENT MEDICATIONS: I note insulin was adjusted by the primary team and I also note that he is on I.V. Solu-Medrol that was started yesterday. His remainder of medications are unchanged as compared to prior. PROBLEMS/PLAN: 1. End-stage renal disease: On hemodialysis. Patient was dialyzed on March 14 with 2 liters of fluid removed. He is being dialyzed again today with goal fluid removal again of about 2 liters. His fistula is in good use. His electrolytes are acceptable and I also feel that his volume status is reasonable. 2. Hypoxic respiratory failure: Chest x-ray yesterday is noted with vascular congestion. Blood gas today is noted with respiratory acidosis. Patient is now on I.V. steroids managed by the primary team for COPD exacerbation. He has been requiring more oxygen. He also has underlying obesity hypoventilation syndrome and sleep apnea. Today with dialysis we will remove up to 2.5 liters as tolerated by his hemodynamics. 3. Anemia in the setting of end-stage kidney disease and iron deficiency and recent left distal femur fracture: Patient has received 2 units of packed red blood cells on this admission. Hemoglobin is 8.7 on the latest labs. He would be transfused for any hemoglobin less than 8. He is likely to require further transfusion after his hip surgery. 4. Hyperglycemia likely secondary to I.V. steroid use: Insulin is been managed by the primary team. 5. Hypertension: Blood pressures are stable on the current regimen and I made no change. He is on carvedilol 3.125 by mouth daily. 6. Altered mentation: Patient was somewhat slow to respond and not at his usual baseline mentation when I saw him this morning in dialysis. It is likely multifactorial and secondary to underlying schizophrenia, schizoaffective disorder, hyperglycemia, hypercapnia and pain medications for his hip fracture and it is managed by the primary team.
--- NOTE | 2021-03-16 11:33 | IPNPDOC ---
Text Note Date of Service The patient was seen on 03/16/21. NOTE Subjective: Patient is a 66-year-old male presented to emergency room with h ypercapnic respiratory failure. Patient was initially placed on CPAP and transition to BiPAP. Patient was also found to have a left distal femur fracture status post mechanical fall. Patient was going to have this surgically fixed few days ago however, patient became confused and was refusing surgery. Patient was awake this morning and talking while eating breakfast. Patient did not complain of any pain at this time. Patient states he is having some difficulty swallowing but was eating breakfast. Patient felt like he was breathing better than he was yesterday when I saw him later in the day. Review of systems: General: Patient denies fevers HEENT: Patient denies headaches Cardiovascular: Patient denies chest pain Respiratory: Patient denies shortness of breath, cough GI: Patient denies abdominal pain, nausea, vomiting, diarrhea : Patient denies increased frequency or pain with urination Extremities: Patient denies swelling or pain in extremities Neurological: Patient denies numbness or tingling in legs Physical exam: Vitals: See below General: Alert and oriented male patient who was sitting up in bed eating breakfast with nasal cannula oxygen in place when I walked in. Patient did not appear to be in any acute distress. HEENT: Normocephalic, atraumatic, moist mucous membranes. Neck: No lymphadenopathy or thyromegaly Cardiac: Regular rate and rhythm, no murmurs, normal S1, normal S2 Pulm: End expiratory wheezing heard throughout the lung lundy Abd: Nondistended, nontender to palpation, normal bowel sounds Ext: No edema bilateral lower extremities Labs: See below Imaging: Chest x-ray performed on 03/15/2021 was reported to show stable exam. Modified cookie swallow performed on 03/15/2021 was reported to show penetration aspiration was seen with nectar consistency barium. Although the consistency of barium patient was able to successfully swallow without penetration or aspiration. Assessment/plan: 66-year-old male who initially presented for acute hypercapnic respiratory failure which resolved with BiPAP was found to have a left femur fracture status post mechanical fall who is refusing surgery 3 days ago 1. Acute on chronic hypercapnic respiratory failure with evidence of chronic metabolic acidosis, resolved status post BiPAP and hemodialysis. Patient is ABG from this morning does show he has a mild acidosis with hypercapnia. I did again advise the patient to wear his BiPAP when he is sleeping and spoke with patient's nurse in order to have him wear this when he is sleeping. Patient is alert and oriented this morning so we will continue the treatment as above. 2. Morbid obesity with MARCELA/OHS causing chronic hypercapnic hypoxic respiratory failure on home oxygen. Continue maintenance of patient's home oxygen. Patient is currently on 5 L which may be weaned down. 3. Left distal femur fracture status post mechanical fall. Patient was going to have surgical fixation on Thursday but refused. Patient will need to have surgery earlier on this coming week. 4. Hypoglycemia secondary to n.p.o. status. Patient sugars have been elevated and patient has been started on sliding scale insulin. 5. Dysphagia. Dietary recommendations appreciated. Cookie swallow was done yesterday which did show penetration of nectar thickened liquid. Continue with speech therapy. 6. Worsening anemia. Likely secondary to chronic medical renal disease with his fracture. Hemoglobins are stable. 7. Transaminitis, resolved. 8. Atrial fibrillation on Eliquis currently rate controlled. Eliquis on hold due to impending orthopedic procedure. 10. History of ESRD on hemodialysis. I appreciate Dr. Duron's help treating the patient 11. Schizophrenia/schizoaffective disorder. Patient has a psychiatric history and will continue with medication. 12. Hypothyroidism. Continue home levothyroxine. 13. COPD exacerbation. Patient has been wheezing more over the last few days and is requiring more oxygen. 1 dose of 125 mg Solu-Medrol given. 40 mg IV Solu-Medrol twice daily given now. 14. Diabetes with hyperglycemia. Patient sugars elevated most likely secondary to steroids. Levemir and sliding scale insulin has been started. DVT Prophylaxis: Mechanical due to impending orthopedic procedure Disposition: Pending orthopedic surgery. VS,Fishbone, I+O VS, Fishbone, I+O Laboratory Tests 03/16/21 05:55 Vital Signs Date Time Temp Pulse Resp B/P (MAP) Pulse Ox O2 Delivery O2 Flow Rate FiO2 03/16/21 08:03 91 120/67 03/16/21 08:00 97.6 20 97 Nasal Cannula 5.0 03/12/21 10:00 95 I&O- Last 24 Hours up to 6 AM 03/16/21 06:00 Intake Total 400 ml Output Total 0 ml Balance 400 ml CHAUNCEY,MINOO DO Mar 16, 2021 11:33
[2021-03-16 14:17] VITALS: BP 110/57
[2021-03-16 16:00] VITALS: BP 131/70
[2021-03-16] MEDS: PALIPERIDONE 3 MG ER TAB (INVEGA) PO SCH (17:05)
[2021-03-16 19:45] VITALS: BP 134/74
[2021-03-16] MEDS: DOCUSATE SODIUM 100MG CAPSULE PO SCH (20:13)
[2021-03-16] MEDS: ATORVASTATIN 20 MG TAB PO SCH (20:13)
[2021-03-16] MEDS: LIDOCAINE 5% (LIDODERM) PATCH TD SCH (20:15)
[2021-03-17] VITALS (7 sets, daily range): BP systolic 117–145; BP diastolic 65–90
[2021-03-17] MEDS: ACETAMINOPHEN TAB 650MG DOSE (2X325MG) PO SCH ×4 (00:13→17:12)
[2021-03-17] MEDS: LEVALBUTEROL 1.25 MG/0.5 ML CONCENTRATE NEB INH SCH ×5 (03:32→19:11)
[2021-03-17 05:33] LABS: ABG BASE EXCESS -2.9 (-2.0-2.0); ABG HCO3 24.3 MEQ/L (22.0-26.0); ABG O2 SATURATION 93.4 % (95.0-99.0); ABG PARTIAL PRESSURE CO2 54.6 mmHg (35.0-45.0); ABG PARTIAL PRESSURE O2 74.4 mmHg (75.0-100.0); ABG pH (ARTERIAL) 7.267 UNITS (7.350-7.450)
[2021-03-17 05:58] LABS: HEMATOCRIT 29.8 % (42.0-52.0); HEMOGLOBIN 8.8 g/dl (13.5-17.5); MEAN CORPUSCULAR HEMOGLOBIN 33.5 pg (27.0-33.0); MEAN CORPUSCULAR HGB CONC 29.5 g/dl (32.0-36.5); MEAN CORPUSCULAR VOLUME 113.3 fl (80.0-96.0); PLATELET COUNT, AUTOMATED 150 10^3/uL (150-450); RED BLOOD COUNT 2.63 10^6/uL (4.30-6.10); WHITE BLOOD COUNT 5.4 10^3/uL (4.0-10.0)
[2021-03-17 06:31] LABS: ALBUMIN 2.4 GM/DL (3.2-5.2); BILIRUBIN,TOTAL 0.6 MG/DL (0.2-1.0); CALCIUM LEVEL 8.2 MG/DL (8.8-10.2); CREATININE FOR GFR 4.6 MG/DL (0.70-1.30); GLOMERULAR FILTRATION RATE 13.8 (>49); MAGNESIUM LEVEL 2.1 MG/DL (1.8-2.4); PHOSPHORUS LEVEL 3.2 MG/DL (2.5-4.9); TOTAL PROTEIN 7.2 GM/DL (6.4-8.2)
[2021-03-17] MEDS: methylPREDNISolone 40MG 1ML VIAL IV SCH (08:28)
[2021-03-17] MEDS: PANTOPRAZOLE 40MG VIAL (C9113 PER 1) IV SCH (08:28)
[2021-03-17] MEDS: HumaLOG INSULIN (NovoLOG) PER UNIT SC SCH ×4 (08:29→22:51)
[2021-03-17] MEDS: CALCIUM ACETATE 667MG GELCAP PO SCH ×3 (08:29→17:13)
[2021-03-17] MEDS: OXcarbazepine 300 MG TAB PO SCH ×2 (08:29→22:52)
[2021-03-17] MEDS: FAMOTIDINE 20 MG TAB PO SCH ×2 (08:30→22:53)
[2021-03-17] MEDS: LEVEMIR (INSULIN DETEMIR) 1 UNITS/0.01ML SC SCH (08:30)
[2021-03-17] MEDS: TAMSULOSIN 0.4 MG CAP PO SCH (08:30)
[2021-03-17] MEDS: VENLAFAXINE **XR** 75MG CAPSULE PO SCH (08:30)
[2021-03-17] MEDS: SENNA 8.6 MG TAB (SENOKOT) PO SCH ×2 (08:30→22:14)
[2021-03-17] MEDS: CARVedilol 3.125 MG TAB PO SCH (08:30)
[2021-03-17] MEDS: FLUTICASONE PROP 0.05% NASAL SPRAY 16 GM (FLONASE) SCH (08:31)
[2021-03-17] MEDS: **NOTE PATIENT COMMENT** MISC XX SCH (08:31)
[2021-03-17] MEDS: NYSTATIN 100,000 UNITS/GM TOPICAL PWD 15 GM TOP SCH (08:31)
[2021-03-17] MEDS ORDERED: LEVEMIR (INSULIN DETEMIR) 1 UNITS/0.01ML SC ONE (13:00)
--- NOTE | 2021-03-17 13:33 | IPNPDOC ---
Text Note Date of Service The patient was seen on 03/17/21. NOTE Subjective: Patient is a 66-year-old male presented to the emergency department with hypercapnic respiratory failure. Patient was initially placed on CPAP transition to BiPAP. Patient was also found to have a left distal femur fracture status post mechanical fall. Patient was given have a surgically fixed on 03/13/2021 however, patient became confused and refused surgery. Patient was awake this this morning laying in bed when I walked in. Patient states that he feels like his breathing is little bit better. Review of systems: General: Patient denies fevers HEENT: Patient denies headaches Cardiovascular: Patient denies chest pain Respiratory: Patient denies shortness of breath, cough GI: Patient denies abdominal pain, nausea, vomiting, diarrhea : Patient denies increased frequency or pain with urination Extremities: Patient denies swelling or pain in extremities Neurological: Patient denies numbness or tingling in legs Physical exam: Vitals: See below General: Alert and oriented male patient who was sitting up in bed with nasal cannula oxygen in place. Patient not appear to be in acute distress. HEENT: Normocephalic, atraumatic, moist mucous membranes. Neck: No lymphadenopathy or thyromegaly Cardiac: Regular rate and rhythm, no murmurs, normal S1, normal S2 Pulm: Scattered and expiratory wheezing heard throughout the lung lundy Abd: Nondistended, nontender to palpation, normal bowel sounds Ext: No edema bilateral lower extremities Labs: See below Imaging: No new imaging is been performed Assessment/plan: 66-year-old male initially presented with acute hypercapnic respiratory failure which resolved with BiPAP was found to have a left femur fracture status post mechanical fall refused surgery 4 days ago. 1. Acute on chronic hypercapnic respiratory failure with evidence of chronic metabolic acidosis, resolved status post BiPAP and hemodialysis. ABG from this morning does show mild acidosis with hypercapnia. I again strongly advised the patient to wear his BiPAP. Since patient appeared that he was going to be taking a nap, I advised the patient to try to put the BiPAP on now but he states it is only for nighttime and it is daytime. I advised patient needs to wear during nighttime and has been documented by respiratory therapy who is seen the patient the last few nights that he is refused this. Patient states that he w ill try to wear it tonight. 2. Morbid obesity with MARCELA/OHS causing chronic hypercapnic respiratory failure on home O2. Continue maintenance of patient's home oxygen. Patient's oxygen saturation to be 88 to 92%. 3. Left distal femur fracture status post mechanical fall. Going for surgical fixation on 03/13/2021 but refused. Patient states he would have surgery now. 5. Hyperglycemia. Patient's blood sugars have been elevated. Continue sliding scale insulin. These most likely secondary to the steroids. 5. Dysphagia. Dietary recommendations appreciated. Continue to follow-up with speech therapy. 6. Anemia. Likely secondary to chronic medical renal disease and his fracture. Hemoglobin is stable. 7. Transaminitis, resolved. 8. Atrial fibrillation on Eliquis, rate controlled. Eliquis is on hold due to pending orthopedic surgery. 9. ESRD on hemodialysis. I appreciate Dr. Duron's help treating the patient. 10. Schizophrenia/schizoaffective disorder. Continue home psychiatric medications 11. Hypothyroidism. Continue home levothyroxine. 12. COPD exacerbation. Patient is been wheezing more. Continue p.o. prednisone at this time. Continue to wean down oxygen to maintain saturations 88 to 90%. Wear BiPAP at night. 13. Diabetes with hyperglycemia. Sugars elevated most likely secondary to steroids. Levemir and sliding scale insulin. DVT Prophylaxis: Mechanical Disposition: Pending orthopedic surgery Salvador TAVERAS, I+O VSaSlvador I+O Laboratory Tests 03/17/21 05:14 Vital Signs Date Time Temp Pulse Resp B/P (MAP) Pulse Ox O2 Delivery O2 Flow Rate FiO2 03/17/21 12:42 98.5 82 18 117/67 (84) 96 Nasal Cannula 3.0 03/12/21 10:00 95 I&O- Last 24 Hours up to 6 AM 03/17/21 06:00 Intake Total 960 ml Output Total 2000 ml Balance -1040 ml MINOO GROSSMAN DO Mar 17, 2021 13:33
[2021-03-17] MEDS: PALIPERIDONE 3 MG ER TAB (INVEGA) PO SCH (17:13)
[2021-03-17] MEDS: traMADol 50 MG TAB PO PRN (22:52)
[2021-03-17] MEDS: ATORVASTATIN 20 MG TAB PO SCH (22:53)
[2021-03-17] MEDS: DOCUSATE SODIUM 100MG CAPSULE PO SCH (22:53)
[2021-03-17] MEDS: LIDOCAINE 5% (LIDODERM) PATCH TD SCH (22:54)
[2021-03-18] VITALS: BP 108/66
[2021-03-18] MEDS: LEVALBUTEROL 1.25 MG/0.5 ML CONCENTRATE NEB INH SCH ×7 (00:10→23:23)
[2021-03-18] MEDS: ACETAMINOPHEN TAB 650MG DOSE (2X325MG) PO SCH ×6 (00:33→17:47)
[2021-03-18 04:00] VITALS: BP 113/72
[2021-03-18 08:02] VITALS: BP 119/65
[2021-03-18 08:30] LABS: HEMATOCRIT 30.3 % (42.0-52.0); MEAN CORPUSCULAR HEMOGLOBIN 33.5 pg (27.0-33.0); MEAN CORPUSCULAR HGB CONC 29.7 g/dl (32.0-36.5); MEAN CORPUSCULAR VOLUME 112.6 fl (80.0-96.0); PLATELET COUNT, AUTOMATED 174 10^3/uL (150-450); RED BLOOD COUNT 2.69 10^6/uL (4.30-6.10); WHITE BLOOD COUNT 6.4 10^3/uL (4.0-10.0)
[2021-03-18] MEDS ORDERED: LEVEMIR (INSULIN DETEMIR) 1 UNITS/0.01ML SC SCH (09:00)
[2021-03-18] MEDS: CARVedilol 3.125 MG TAB PO SCH (09:00)
[2021-03-18] MEDS: NYSTATIN 100,000 UNITS/GM TOPICAL PWD 15 GM TOP SCH (09:00)
[2021-03-18] MEDS: FLUTICASONE PROP 0.05% NASAL SPRAY 16 GM (FLONASE) SCH (09:00)
[2021-03-18] MEDS: **NOTE PATIENT COMMENT** MISC XX SCH (09:00)
[2021-03-18 09:03] LABS: ALBUMIN 2.7 GM/DL (3.2-5.2); ALT/SGPT 40 U/L (12-78); BILIRUBIN,TOTAL 0.6 MG/DL (0.2-1.0); BLOOD UREA NITROGEN 54 MG/DL (7-18); CALCIUM LEVEL 8.4 MG/DL (8.8-10.2); CARBON DIOXIDE LEVEL 27 MEQ/L (21-32); CHLORIDE LEVEL 98 MEQ/L (98-107); CREATININE FOR GFR 6.31 MG/DL (0.70-1.30); GLOMERULAR FILTRATION RATE 9.6 (>49); GLUCOSE, FASTING 310 MG/DL (70-100); MAGNESIUM LEVEL 2.2 MG/DL (1.8-2.4); PHOSPHORUS LEVEL 3.3 MG/DL (2.5-4.9); POTASSIUM SERUM 5.1 MEQ/L (3.5-5.1); SODIUM LEVEL 134 MEQ/L (136-145); TOTAL PROTEIN 7.1 GM/DL (6.4-8.2)
[2021-03-18] MEDS: HumaLOG INSULIN (NovoLOG) PER UNIT SC SCH ×4 (10:29→22:35)
[2021-03-18] MEDS: PANTOPRAZOLE 40MG VIAL (C9113 PER 1) IV SCH (10:29)
[2021-03-18] MEDS: VENLAFAXINE **XR** 75MG CAPSULE PO SCH (10:30)
[2021-03-18] MEDS: SENNA 8.6 MG TAB (SENOKOT) PO SCH ×2 (10:30→22:36)
[2021-03-18] MEDS: FAMOTIDINE 20 MG TAB PO SCH (10:31)
[2021-03-18] MEDS: predniSONE 20 MG TAB PO SCH (10:31)
[2021-03-18] MEDS: traMADol 50 MG TAB PO PRN ×2 (10:31→22:33)
[2021-03-18] MEDS: TAMSULOSIN 0.4 MG CAP PO SCH (10:31)
[2021-03-18] MEDS: OXcarbazepine 300 MG TAB PO SCH ×2 (10:37→22:33)
[2021-03-18] MEDS: CALCIUM ACETATE 667MG GELCAP PO SCH ×3 (10:37→17:47)
[2021-03-18] MEDS ORDERED: DARBEPOETIN 100 MCG/0.5 ML *DIALYSIS* SYRINGE (J0882) IV SCH (11:30)
[2021-03-18 11:52] LABS: HEPATITIS B SURFACE ANTIBODY NEGATIVE (POSITIVE)
[2021-03-18 12:03] LABS: HEPATITIS B SURFACE ANTIGEN NEGATIVE (NEGATIVE)
[2021-03-18 12:20] VITALS: BP 106/57
[2021-03-18 12:31] LABS: HEPATITIS B CORE ANTIBODY IGM NEGATIVE (NEGATIVE); HEPATITIS C VIRUS ABY INDEX 0.1 INDEX (<0.8)
--- NOTE | 2021-03-18 15:25 | IPN ---
PROGRESS NOTE DATE: 03/18/2021 SUBJECTIVE: Pradepe is seen and examined this morning at the bedside. He offers no new complaints. He is due for dialysis tomorrow and I am not sure what the surgical plan is for his distal left femur fracture. OBJECTIVE: VITAL SIGNS: Temperature is 97.8, pulse is 79, respiratory rate is 20, blood pressure is 119/65, saturating 100% on 3 liters nasal cannula. GENERAL: Patient is seen awake, alert and oriented to person, place and situation at baseline mentation in no distress. Obese male. HEENT: Extraocular muscles are intact. Tongue is moist. HEART: Heart sounds are irregularly irregular. There is no significant edema of the right lower extremity. The left leg is in a brace with dressings. There is a fistula in the left arm which is patent. LUNGS: Anterior auscultation only shows good air movement. No significant wheeze. He is comfortable on nasal cannula. No accessory muscle use. ABDOMEN: Obese, soft, and nontender. EXTREMITIES: There is a fistula on the left arm. There is a brace on the left leg. There is no edema on the right leg. SKIN: Warm and dry. Normal temperature and turgor. LABORATORY DATA: Sodium is 134, potassium is 5.1, bicarbonate 27, BUN 54, creatinine 6.3, glucose is 310, magnesium is 2.2, albumin is 2.7, hemoglobin is 9.0, platelets are 174,000. INPATIENT MEDICATIONS: The patient continues on a mechanical soft diet. He is now on oral prednisone instead of IV steroids. His insulin was adjusted by the primary team. No other medication changes were noted. PROBLEMS: 1. Endstage renal disease on hemodialysis on a Thursday, and Thursday schedule. Next dialysis is planned for tomorrow. I will remove around 2 to 3 liters as tolerated by hemodynamics. His electrolytes are acceptable (with the exception of ongoing hyperglycemia). 2. Atrial fibrillation. Patient continues on once daily beta herbert. At the alf, he takes Eliquis 5 mg p.o. b.i.d. for his anticoagulation regimen. He has been off of chronic anticoagulation because of planned orthopedic surgery for his left distal femur fracture. He is not even on Heparin sub q. at this time. I do not know when his surgery will take place but I feel the patient should at least be on DVT prophylaxis if there is no plan for surgery in the immediate future. 3. Chronic hypoxic respiratory failure. Patient desaturating well on 3 liters of oxygen and it can likely be weaned. He has underlying obesity hypoventilation syndrome. Volume status is acceptably compensated with dialysis. 4. Hyperglycemia secondary to IV steroid use for COPD exacerbation in this patient with underlying diabetes. His glucose has improved and the primary team has adjusted his insulin. 5. Left distal femur fracture. Patient initially refused surgery but is now willing. Date of surgery is unknown to me. Anticoagulation is deferred to primary team. Chronic Eliquis is on hold, suggest Heparin sub q. until surgery has been planned.
--- NOTE | 2021-03-18 15:25 | IPN ---
PROGRESS NOTE DATE: 03/17/2021 SUBJECTIVE: Pradeep is seen and examined this evening at the bedside. He tells me that he is thirsty and wants some coffee. He otherwise denies any new complaints. He reports that pain is controlled. He was dialyzed yesterday without any issues and two liters of fluid were removed. He denies any shortness of breath today. His blood sugars have been markedly elevated (up to 506 this morning). Insulin has been adjusted by the primary team. There is still no definitive plan for his surgical correction of left distal femur fracture. OBJECTIVE: VITAL SIGNS: Temperature is 98.5, pulse 82, respiratory rate is 18, blood pressure is 121/74, saturating 96 to 100% on three liter nasal cannula. INTAKE AND OUTPUT: Intake yesterday was 600, dialysis removed 2 liters, weight on the bed scale today is 157.5 kg. GENERAL: Patient is seen awake, alert, oriented to person, to place and to situation and in no acute distress. HEENT: Extraocular muscles are intact. Tongue is moist. NECK: Jugular veins are difficult to assess secondary to obesity. HEART: Heart sounds are irregularly irregular. There is no edema noted in the right lower extremity. There is a brace and dressings on the left lower extremity. LUNGS: Diminished secondary to obesity but there is no accessory muscle use and no tachypnea. He looks comfortable on nasal cannula. ABDOMEN: Obese and soft. EXTREMITIES: There is a fistula in the left arm which is patent with thrill and bruit. There is a brace on the left leg. There is no edema in the right leg. There is a femoral line on the Rt NEUROLOGIC: Patient answers simple questions appropriately, follows simple commands and is able to tell me his name. He knows he is in the hospital and knows that he fractured his leg. LABORATORY DATA: Sodium is 137, potassium is 5.0, bicarbonate 27, BUN is 30, creatinine 4.6, glucose 436. Phosphorus is 3.2, albumin is 2.4, hemoglobin is 8.8, platelets 150,000. Transferrin saturation is 28%. INPATIENT MEDICATIONS: Reviewed by myself. His insulin was adjusted by the primary team. The remainder of medications are unchanged as compared to yesterday. His IV steroids were stopped and switched back to oral prednisone. PROBLEMS: 1. Endstage renal disease on hemodialysis on a Thursday, and Thursday schedule. Patient was dialyzed yesterday with 2 liters of fluid removed. Next dialysis will be on Thursday. His electrolytes are acceptable and his volume status is also reasonably compensated. His fistula is in good use. 2. Hypoxic respiratory failure. Patient's supplemental oxygen can likely be weaned down now. He is saturating 96% to 100% on 3 liters of nasal cannula. He is being treated for COPD exacerbation by the primary team. He was on IV steroids and his blood sugars significantly silvio. I note he is now being transitioned back to oral prednisone. He is tolerating fluid removal with dialysis, 2 liters were removed yesterday and the next dialysis will be on Thursday. He has underlying obesity hypoventilation syndrome and sleep apnea. 3. Anemia in the setting of endstage kidney disease and recent left distal femur fracture. He received 2 units of packed red blood cells on this admission. Hemoglobin on the latest labs is 8.8. He will likely require further transfusion postop. He continues on Aranesp with dialysis. 4. Hyperglycemia secondary to diabetes mellitus and recent use of IV steroids for COPD exacerbation, insulin as managed by the primary team. 5. Hypertension, blood pressures are well-controlled on the current regimen. He continues on Carvedilol once daily. MTDD
[2021-03-18 16:25] VITALS: BP 123/80
[2021-03-18] MEDS: PALIPERIDONE 3 MG ER TAB (INVEGA) PO SCH (17:54)
--- NOTE | 2021-03-18 19:22 | IPNPDOC ---
Date Seen The patient was seen on 03/18/21. Progress Note SUBJECTIVE: Pradeep was seen and examined this morning by the hospitalist service while lying in bed. Per review of overnight logging, it does not appear that patient used his CPAP for more than a few hours. We spoke with the nurse who mentioned at signout from the overnight team that he apparently uses CPAP for only about 5 hours. Upon our examination this morning, patient was in moderate to significant discomfort primarily as result of left lower extremity pain from his left distal femur fracture. Nursing was in the process of administering his as needed tramadol. Patient was tired but still able to answer our questions and follow commands appropriately this morning. Patient did report some mild shortness of breath that he states is about his baseline but denies any increased work of breathing. He denied any current overnight subjective fevers, chills, night sweats, chest pain, palpitations, pleuritic chest pain, abdominal pain, nausea, vomiting, or blood in stool. OBJECTIVE PHYSICAL EXAMINATION: VITAL SIGNS: Please see below. GENERAL: White morbidly obese male lying in bed. Wearing supplemental nasal cannula oxygen. Appears in moderate to significant discomfort related to left lower extremity pain. Overall, he is tired appearing but is able to answer all of our questions appropriately and is following simple commands HEENT: Normocephalic, atraumatic. Wearing supplemental nasal cannula oxygen. Possible mild bilateral proptosis. Anicteric sclera. CARDIOVASCULAR: Somewhat distant heart sounds. Regular rate, clinically regular rhythm. Distant heart sounds make it difficult to appreciate for any significant murmurs or rubs. Normal S1, S2. RESPIRATORY: Wearing supplemental 3 L nasal cannula oxygen saturating at 94 to 96%. Auscultation occurred anteriorly and laterally with some mild scattered rhonchi. Wheezes from prior days exam significantly decreased today. Slightly prolonged expiration to inspiration time. No significant accessory muscle use appreciated. No conversational dyspnea. Metric chest expansion. ABDOMINAL: Morbidly obese. Normoactive bowel sounds present. Nontender without any guarding or rigidity. Difficult to assess for hepatosplenomegaly secondary to habitus. EXTREMITIES: There is a full-length left lower extremity brace in place. Patient is in moderate to significant discomfort related to LLE pain. No pitting edema of right lower extremity. There is some distal right lower extremity mild erythema and chronic venous stasis changes. There is a triple- lumen catheter in place in the right femoral vein. 2+ radial pulses bilaterally. NEUROLOGICAL: Patient is somewhat somnolent but arousable and able to answer qu estions appropriately. He is oriented x3. He follows simple commands appropriately. LABORATORY DATA, IMAGING STUDIES, MICROBIOLOGY: Please see below. ASSESSMENT AND PLAN: This is a 66-year-old man with notable past medical history of chronic hypercapnic respiratory failure along with COPD on home O2 and MARCELA on CPAP, type 2 diabetes, end-stage renal disease on hemodialysis (TTHSA), hypothyroidism, morbid obesity, chronic anemia related to ESRD, atrial fibrillation on Eliquis, schizoaffective/schizophrenia disorder, who presented to the ED on 03/09/2021 from outpatient hemodialysis after sustaining a fall in the process of getting set up for dialysis. Patient suffered a left distal femur fracture and was ultimately admitted for acute on chronic hypercapnic respiratory failure, initial shock requiring vasopressor support, COPD exacerbation, and orthopedic evaluation for surgical correction of femur fracture #Acute on chronic hypercapnic respiratory failure with associated metabolic acidosis upon admission c/b MARCELA/OHS, improved with AVAPS/CPAP and hemodialysis Patient has been undergoing hemodialysis on his regular schedule Thursday and Thursday schedule since admission. We also once again had a extensive conversation with the patient today about the importance of using his CPAP not just when he sleeps overnight but also while he takes naps during the day. ABGs showed slightly worsened respiratory acidosis and we explained the patient this was likely because he only used the CPAP for about 5 hours overnight. -Per documentation, had been refusing CPAP earlier during the admission but is now more amenable. Also spoke with nursing extensively on the importance of using the CPAP during the day when he naps. There is likely an element of obesity hypoventilation syndrome in the setting of patient's morbid obesity. -Patient most recently underwent hemodialysis on 03/16 with approximately 2 L removed. Metabolic panel relatively unremarkable today other than hyperglycemia. #Acute exacerbation of COPD, improved -Clinically on examination, much less wheezing apparent on 03/18 versus previous days exam. Patient is on day 1 of 4 oral 40 mg prednisone dosing. He is status post intravenous steroid dosing. -s/p mechanical fall and respiratory acidosis -Continue with inhalers from home as well as Xopenex nebulizer treatments (I/S/O A. fib/borderline tachycardia) -Patient is O2 dependent at home per prior documentation. Suspected group 2/3 pulmonary hypertension like related to chronic hypoxia from sleep apnea and chronic obstructive lung disease. -O2 titration orders for 88-92%. #Hyperglycemia likely 2/2 recent IV steroid use and I/S/O type 2 diabetes -Patient is now off of intravenous steroids and completing a 4-day 40 mg prednisone dosing in the setting of improving COPD exacerbation. -Serum glucose remains poorly controlled but is improved to 310 on 03/18 versus 400s over the preceding 2 days. -10 units of evening long-acting insulin added for the evening of 03/18 -Continue with fingersticks and short acting insulin sliding scale before meals and at bedtime -Patient will be n.p.o. after 0600 on 03/19 in preparation for 1500 surgery on the same day #Left distal femur fracture secondary to mechanical fall, pending surgical intervention -Patient was brought in due to mechanical fall at dialysis on 03/09; patient initially needed to be stabilized from a blood pressure and respiratory acidosis standpoint. Initial surgery was delayed on 03/10 for cardiac clearance and then again delayed on 03/13 due to patient's refusal for surgery. Over the past 2-3 days we have had extensive conversations with the patient regarding surgical intervention. He has claimed over the past few days that he would like to go through with the surgery and thus Dr. Loza of orthopedic surgery is planning a left femoral retrograde intramedullary nail intervention on 03/19 at 1500. -Patient will be n.p.o. after 0600 on 03/19 in preparation for the surgery -Continue with scheduled lidocaine patches and as needed pain anti-inflammatory and low intensity opioid medications for analgesia -Patient on mechanical DVT prophylaxis in preparation for surgery #End-stage renal disease on hemodialysis, -We continue to appreciate the input of the nephrology service. Patient most recently underwent hemodialysis on 03/16, with 2 L removed #Chronic anemia likely secondary to end-stage renal disease, stable -Patient has scheduled Aranesp with hemodialysis sessions -Iron panel earlier on admission showed elevated ferritin #Atrial fibrillation on home Eliquis -Home Eliquis has been held in the setting of upcoming surgery. We plan to resume anticoagulation after surgery on 03/19. Should patient change his mind again and decide against the surgery, we will reinitiate anticoagulation -On 03/18 examination, clinically regular rhythm with controlled rate. #Schizoaffective/schizophrenia disorder -Continue with home medications in the form of atypical antipsychotic, antidepressant #Pseudohyponatremia 2/2 hyperglycemia -Serum sodium 134; corrected serum sodium 137 #Dysphagia -reflux into pharynx visualized on 03/15 MBSS study. Speech therapy is following along and educating nursing with upright feeding and modified soft mechanical diet. As stated above, the patient will be n.p.o. after 0600 on 03/19 in p reparation for surgery. #Presumed acid reflux -Home famotidine stopped and continue with IV Protonix that was initiated upon initial presentation. Upon discharge we will switch back to home famotidine. #DVT prophylaxis: Continue with teds and sequentials in preparation for 03/19 surgery. As stated above, will resume home anticoagulation after surgery. Disposition: Pending orthopedic surgery on 03/19 at 1500 for left distal femur fracture. VS, I&O, 24H, Fishbone Vital Signs/I&O Vital Signs Date Time Temp Pulse Resp B/P (MAP) Pulse Ox O2 Delivery O2 Flow Rate FiO2 03/18/21 16:25 97.2 78 20 123/80 (94) 99 NIPPV (BIPAP/CPAP) 03/18/21 16:00 2.0 03/12/21 10:00 95 I&O- Last 24 Hours up to 6 AM0 03/18/21 06:00 Intake Total 600 ml Output Total 0 ml Balance 600 ml Laboratory Data 24H LABS Laboratory Tests 2 03/17/21 22:12: Bedside Glucose (Misc Panel) 329H 03/18/21 08:06: Nucleated Red Blood Cells % (auto) 0.0, Anion Gap 9, Glomerular Filtration Rate 9.6L, Calcium Level 8.4L, Phosphorus Level 3.3, Magnesium Level 2.2, Total Bilirubin 0.6, Aspartate Amino Transf (AST/SGOT) 12, Alanine Aminotransferase (ALT/SGPT) 40, Alkaline Phosphatase 117, Total Protein 7.1, Albumin 2.7L, Albumin/Globulin Ratio 0.6, Hepatitis B Surface Antigen NEGATIVE, Hepatitis B Surface Antibody NEGATIVE, Hepatitis B Core IgM Antibody NEGATIVE, Hepatitis C Antibody Index 0.1 03/18/21 12:42: Bedside Glucose (Misc Panel) 365H 03/18/21 17:33: Bedside Glucose (Misc Panel) 358H 03/18/21 18:21: CBC/BMP Laboratory Tests 03/18/21 08:06 Microbiology Microbiology 03/09/21 Blood Culture - Final, Complete NO GROWTH AFTER 5 DAYS 03/09/21 Blood Culture - Final, Complete NO GROWTH AFTER 5 DAYS GME ATTESTATION GME ATTESTATION My faculty preceptor for this patient encounter was physically present during the encounter and was fully available. All aspects of the patient interview, examination, medical decision making process, and medical care plan development were reviewed and approved by the faculty preceptor. The faculty preceptor is aware and concurs with the plan as stated in the body of this note and will attest to such by his/her cosignature. ATTENDING NOTE I, Wes Grossman DO, have independently examined this patient and performed my own physical exam, as well as reviewed the documentation and edited where necessary. I have discussed in detail with the resident the findings and plan of treatment as documented by the resident and edited their note. I agree with their findings and treatment plan and have edited their documentation. I will continue to follow the patient during this hospital stay. MARLON BONDS D.O. Mar 18, 2021 19:22 WES GROSSMAN DO Mar 20, 2021 08:57
[2021-03-18 20:00] VITALS: BP 132/71
[2021-03-18] MEDS ORDERED: LEVEMIR (INSULIN DETEMIR) 1 UNITS/0.01ML SC ONE (21:00)
[2021-03-18] MEDS: DOCUSATE SODIUM 100MG CAPSULE PO SCH (22:34)
[2021-03-18] MEDS: ATORVASTATIN 20 MG TAB PO SCH (22:40)
[2021-03-18] MEDS: LIDOCAINE 5% (LIDODERM) PATCH TD SCH (22:40)
[2021-03-19] VITALS: BP 97/61
[2021-03-19] MEDS: LEVALBUTEROL 1.25 MG/0.5 ML CONCENTRATE NEB INH SCH ×7 (02:42→23:27)
[2021-03-19 04:00] VITALS: BP 118/66
[2021-03-19 05:40] LABS: HEMATOCRIT 30.8 % (42.0-52.0); HEMOGLOBIN 9.4 g/dl (13.5-17.5); LYMPH # 0.3 10^3/uL (1.5-5.0); LYMPH % 4.5 % (24.0-44.0); MEAN CORPUSCULAR HEMOGLOBIN 33.6 pg (27.0-33.0); MEAN CORPUSCULAR HGB CONC 30.5 g/dl (32.0-36.5); MONO # 0.5 10^3/uL (0.0-0.8); MONO % 7.9 % (2.0-8.0); NEUTROPHILS # 5.4 10^3/uL (1.5-8.5); PLATELET COUNT, AUTOMATED 158 10^3/uL (150-450); WHITE BLOOD COUNT 6.2 10^3/uL (4.0-10.0)
[2021-03-19] MEDS: ACETAMINOPHEN TAB 650MG DOSE (2X325MG) PO SCH ×3 (06:00→13:02)
[2021-03-19 06:01] LABS: ABG BASE EXCESS -3.9 (-2.0-2.0); ABG HCO3 23.2 MEQ/L (22.0-26.0); ABG O2 SATURATION 92.1 % (95.0-99.0); ABG PARTIAL PRESSURE O2 68.8 mmHg (75.0-100.0); ABG STANDARD HCO3 21.1 MEQ/L (22.0-26.0); ABG TOTAL CO2 24.8 MEQ/L (23.0-31.0); ABG pH (ARTERIAL) 7.267 UNITS (7.350-7.450)
[2021-03-19 06:18] LABS: CALCIUM LEVEL 8.4 MG/DL (8.8-10.2); CREATININE FOR GFR 7.31 MG/DL (0.70-1.30); GLOMERULAR FILTRATION RATE 8.1 (>49); PHOSPHORUS LEVEL 3.8 MG/DL (2.5-4.9); POTASSIUM SERUM 6.4 MEQ/L (3.5-5.1)
[2021-03-19 06:19] LABS: ALBUMIN 2.7 GM/DL (3.2-5.2); BILIRUBIN,TOTAL 0.6 MG/DL (0.2-1.0); MAGNESIUM LEVEL 2.4 MG/DL (1.8-2.4); TOTAL PROTEIN 7.5 GM/DL (6.4-8.2)
[2021-03-19] MEDS ORDERED: HumuLIN R (REGULAR) INSULIN (NovoLIN R) **100U/ML** PER UNIT IV STA (06:29)
[2021-03-19] MEDS ORDERED: DEXTROSE 50% 50 ML SYRINGE IV STA ×2 (06:29→06:33)
[2021-03-19] MEDS ORDERED: PATIROMER SORBITEX CALCIUM 8.4 GM POWDER PACKET (VELTASSA) PO ONE (06:30)
[2021-03-19] MEDS ORDERED: CALCIUM GLUCONATE 1,000 MG in D5W MINI-BAG PLUS 100 ML IV ONE (06:30)
[2021-03-19] MEDS ORDERED: ALBUTEROL SULFATE 2.5 MG/0.5 ML INH NEB SOLN NEB ONE (06:30)
[2021-03-19] MEDS ORDERED: LIDOCAINE 1% SDV 5ML VIAL SC PRN (07:35)
[2021-03-19] MEDS ORDERED: SODIUM CHLORIDE 0.9% 1000ML IV PRN (07:35)
[2021-03-19] MEDS: CALCIUM ACETATE 667MG GELCAP PO SCH ×2 (08:00→12:30)
[2021-03-19] MEDS: HumaLOG INSULIN (NovoLOG) PER UNIT SC SCH ×2 (08:09→12:00)
[2021-03-19] MEDS: SENNA 8.6 MG TAB (SENOKOT) PO SCH (09:00)
[2021-03-19] MEDS: CARVedilol 3.125 MG TAB PO SCH (09:00)
[2021-03-19] MEDS: **NOTE PATIENT COMMENT** MISC XX SCH (09:00)
[2021-03-19] MEDS: LEVEMIR (INSULIN DETEMIR) 1 UNITS/0.01ML SC SCH (10:00)
[2021-03-19] MEDS: FLUTICASONE PROP 0.05% NASAL SPRAY 16 GM (FLONASE) SCH (12:40)
[2021-03-19] MEDS: NYSTATIN 100,000 UNITS/GM TOPICAL PWD 15 GM TOP SCH (12:41)
--- NOTE | 2021-03-19 12:44 | IPNPDOC ---
Date Seen The patient was seen on 03/19/21. Progress Note SUBJECTIVE: Pradeep was seen and examined this morning, 03/19/21, by the hospitalist service while undergoing hemodialysis. He expresses hunger this morning but understands that he is currently n.p.o. in preparation for surgery later today. He reports that the left lower extremity pain is a little bit better controlled today versus yesterday, and reports the pain of having an intensity of 5/10. He denies any current or overnight fever, chills, chest pain, palpitations, shortness of breath, pleuritic chest pain, abdominal pain, nausea, or vomiting. He had 1 documented bowel movement yesterday and denies any blood in the stool. Upon review of overnight events, the patient was given a 5 mg IV insulin stat administration as his morning sugars were in the mid to upper 300s. He also had a serum potassium of 6.4 in the overnight team initiated calcium gluconate and Veltassa dosing, but this was stopped as patient recurrently becomes hyperkalemic in between his dialysis sessions and he was ordered for morning hemodialysis to be completed prior to his surgery. OBJECTIVE PHYSICAL EXAMINATION: VITAL SIGNS: Please see below. GENERAL: Somnolent morbidly obese male lying in hemodialysis bed. He is arousable and alert and oriented to person and place. HEENT: Normocephalic, atraumatic. There is some scattered bilateral mild scleral icterus with bilateral exophthalmos. Oral cavity: Mucous membranes are moderately dry. There is no pharyngeal sedate appreciated. Neck: Wide. No significant supraclavicular or cervical lymphadenopathy appreciated. CARDIOVASCULAR: Regular rate, clinically regular rhythm although very difficult to appreciate as his heart sounds remain distant. Normal S1, S2. Difficult to assess with any type of significant accuracy for murmurs due to distant heart sounds. RESPIRATORY: Currently on 2 L nasal cannula supplemental oxygen. Scattered mild wheezing remains throughout, similar to yesterday's exam, with no other significant adventitious breath sounds appreciated and slightly decreased tidal volume. No significant accessory muscle use. Symmetric chest expansion. ABDOMINAL: Morbidly obese, nontender. No guarding or rigidity appreciated. Normoactive bowel sounds throughout. EXTREMITIES: Entire left lower extremity remains in a brace. There is nonpitting edema of the right lower extremity with signs of chronic venous stasis changes. 2+ radial pulses bilaterally NEUROLOGICAL: Somnolent but arousable and is alert and oriented to person and place. He answers most simple questions appropriately and follows simple commands as well. Nondysarthric speech. LABORATORY DATA, IMAGING STUDIES, MICROBIOLOGY: Please see below. ASSESSMENT AND PLAN: This is a 66-year-old gentleman with notable PMH of chronic hypercapnic respiratory failure/MARCELA on CPAP/COPD on home O2, ESRD on HD (TTHSAT) type 2 diabetes, morbid obesity, chronic anemia related to ESRD, hypothyroidism, A. fib on Eliquis, schizophrenia/schizoaffective disorder, who presented to the ED originally on 03/09 from outpatient hemodialysis after sustaining a fall during which he fractured the left distal femur. He was admitted for acute on chronic hypercapnic respiratory failure with some associated metabolic acidosis, initial shock requiring vasopressor support, COPD exacerbation. He was initially cared for by the operating room manager service and then transferred over to both the hospitalist and orthopedic service. #Acute on chronic hypercapnic respiratory failure, improved -Patient is a chronic CO2 retainer as outpatient and has questionable compliance with home CPAP. Initial improvement in hypercapnia with AVAPS. Moderate hypercapnia returned a few days ago and was likely secondary to his refusal to use CPAP. Over the past 2 nights he has been using the CPAP intermittently. As discussed in previous notes, we again emphasized both to the patient and to nursing staff the importance of using CPAP while sleeping at night and while napping during the day. -Repeat ABG this morning relatively unchanged from prior day, showing respiratory acidosis (pH 7.267/PCO2 52/PO2 68/bicarb 25) -As discussed previously, this likely complicated by suspected obesity hypoventilation syndrome in the setting of patient's morbid obesity. -Patient is currently receiving hemodialysis while inpatient and this has helped with acidosis as well; he was taken this morning for his Thursday HD session. #Acute exacerbation of COPD, stable -Respiratory status was improved during yesterday's exam (03/18) and remained stable today (03/19) with mild wheezing throughout. He is on day 2 of 4 oral prednisone dosing and is status post aggressive intravenous steroid administra tion upon admission. -Exacerbation was likely secondary to acute on chronic hypercapnic respiratory failure/respiratory acidosis in the setting of mechanical fall -Continue with his home inhalers as well as nebulizer (Xopenex) treatments. -O2 titration orders remain 88 to 92%. Suspicion remains for group 23 pulmonary hypertension likely secondary to chronic hypoxia from sleep apnea and COPD #Left distal femur fracture, surgical intervention pending -This occurred status post mechanical fall while an outpatient dialysis on 03/09. Initial surgery was deferred until hypercapnia improved and cardiac clearance obtained. Patient was scheduled for 03/13 surgery but refused it. He is now amenable to surgery and will be going at 1500 today (03/19) for left femoral retrograde intramedullary nail intervention with Dr. Loza of orthopedic surgery. -Patient has been n.p.o. since 0600 this morning -Continue with current pain regimen #End-stage renal disease on hemodialysis, -Undergoing Thursday hemodialysis this morning. -Hospitalist service continues to appreciate the involvement and recommendations from the nephrology service #Hyperglycemia likely secondary to recent IV steroid use with history of type 2 diabetes -Sugars remain poorly controlled albeit levels this morning were mid to upper 300s which were slightly improved from prior day. -Had been on short acting sliding scale insulin with meals and at night along with 15 units of long-acting each morning. Added 10 units of long-acting last evening (03/18) with mild improvement. Have now switched to long-acting coverage in the form of 15 units twice daily. -Patient has been n.p.o. since 0600 in preparation for surgery #Acute on chronic hyperkalemia likely secondary to ESRD -Patient is currently receiving Thursday hemodialysis session this morning which should correct things. The overnight team had put in orders for Veltassa and calcium gluconate but again this is mostly a consequence of his ESRD which should improve post dialysis. #Atrial fibrillation, rate controlled -Patient is on home Eliquis. This has been held since admission in the setting of upcoming surgical intervention. Following surgery on 03/19, plan will be to resume Eliquis for anticoagulation. On both 03/18 and 03/19 physical examinations, while heart sounds were distant, his rhythm appeared to be clinically regular. #Schizophrenia/schizoaffective disorder Continue with home medications (antidepressant, atypical antipsychotic #Chronic anemia likely secondary to ESRD, stable -Patient is scheduled to receive Aranesp during his hemodialysis sessions; receiving Thursday hemodialysis today and will get the Aranesp. Previously on admission, iron panel showed elevated ferritin #Dysphagia On 03/15 modified barium swallow study, there was reflex visualized into the pharynx. Speech therapy continues to follow along with the patient and is educating nursing on importance of upright feeding. -Continue with modified soft mechanical diet. -Patient currently n.p.o. since 0600 this morning in preparation for afternoon 03/19 surgery. #Presumed h/o acid reflux -Patient was started on IV Protonix upon admission; we will continue with this. Patient is on famotidine at home will which will likely be resumed upon discharge. #DVT prophylaxis: - Continue with teds and sequentials in preparation for this afternoon surgery. Will resume home anticoagulation following surgery. CODE STATUS: Full code Disposition: He is pending surgical correction with orthopedics this afternoon for left distal femur fracture. VS, I&O, 24H, Fishbone Vital Signs/I&O Vital Signs Date Time Temp Pulse Resp B/P (MAP) Pulse Ox O2 Delivery O2 Flow Rate FiO2 03/19/21 08:00 98.1 98 Nasal Cannula 2.0 03/19/21 04:00 100 30 118/66 (83) I&O- Last 24 Hours up to 6 AM 03/19/21 06:00 Intake Total 840 ml Output Total 0 ml Balance 840 ml Laboratory Data 24H LABS Laboratory Tests 2 03/18/21 12:42: Bedside Glucose (Misc Panel) 365H 03/18/21 17:33: Bedside Glucose (Misc Panel) 358H 03/18/21 18:21: Coronavirus (COVID-19)(PCR) NEGATIVE 03/18/21 20:27: Bedside Glucose (Misc Panel) 377H 03/19/21 05:27: Immature Granulocyte % (Auto) 0.6, Neutrophils (%) (Auto) 87.0H, Lymphocytes (%) (Auto) 4.5L, Monocytes (%) (Auto) 7.9, Eosinophils (%) (Auto) 0.0, Basophils (%) (Auto) 0.0, Neutrophils # (Auto) 5.4, Lymphocytes # (Auto) 0.3L, Monocytes # (Auto) 0.5, Eosinophils # (Auto) 0.0, Basophils # (Auto) 0.0, Nucleated Red Blood Cells % (auto) 0.0, Anion Gap 10, Glomerular Filtration Rate 8.1L, Calcium Level 8.4L, Phosphorus Level 3.8, Magnesium Level 2.4, Total Bilirubin 0.6, Aspartate Amino Transf (AST/SGOT) 11, Alanine Aminotransferase (ALT/SGPT) 37, Alkaline Phosphatase 129H, Total Protein 7.5, Albumin 2.7L, Albumin/Globulin Ratio 0.6 03/19/21 05:54: Blood Gas Bicarbonate Standard 21.1L, Arterial Blood pH 7.267L, Arterial Blood Partial Pressure CO2 52.0H, Arterial Blood Partial Pressure O2 68.8L, Arterial Blood Total CO2 24.8, Arterial Blood HCO3 23.2, Arterial Blood Base Excess - 3.9L, Arterial Blood Oxygen Saturation 92.1L CBC/BMP Laboratory Tests 03/19/21 05:27 Microbiology Microbiology 03/09/21 Blood Culture - Final, Complete NO GROWTH AFTER 5 DAYS 03/09/21 Blood Culture - Final, Complete NO GROWTH AFTER 5 DAYS GME ATTESTATION GME ATTESTATION My faculty preceptor for this patient encounter was physically present during the encounter and was fully available. All aspects of the patient interview, examination, medical decision making process, and medical care plan development were reviewed and approved by the faculty preceptor. The faculty preceptor is aware and concurs with the plan as stated in the body of this note and will a ttest to such by his/her cosignature. ATTENDING NOTE I, Barbara Velasquez, have independently examined this patient and performed my own physical exam, as well as reviewed the documentation and edited where necessary with the resident. For medical students we have performed the physical exam together and discussed medical decision making and I have verified the history. I have discussed in detail with the resident / student the findings and plan of treatment as documented by the resident / student and edited their note. I agree with their findings and treatment plan and have edited their documentation. I will continue to follow the patient during this hospital stay. MARLON BONDS D.O. Mar 19, 2021 12:44 BARBARA VELASQUEZ MD Mar 19, 2021 13:48
[2021-03-19 13:00] VITALS: BP 99/50
[2021-03-19] MEDS: PANTOPRAZOLE 40MG VIAL (C9113 PER 1) IV SCH (13:01)
[2021-03-19] MEDS: OXcarbazepine 300 MG TAB PO SCH (13:02)
[2021-03-19] MEDS: TAMSULOSIN 0.4 MG CAP PO SCH (13:02)
[2021-03-19] MEDS: predniSONE 20 MG TAB PO SCH (13:08)
[2021-03-19] MEDS: VENLAFAXINE **XR** 75MG CAPSULE PO SCH (13:08)
--- NOTE | 2021-03-19 13:20 | IPN ---
NEPHROLOGY PROGRESS NOTE DATE: 03/19/2021 SUBJECTIVE: Pradeep is seen and examined in the hemodialysis unit receiving a treatment. His dialysis was uneventful until three hours of the treatment were completed, at which point patient caused an infiltration of his fistula by excessive movement of his fistula arm and dialysis was therefore stopped after three hours and he did not receive his full four hour treatment. Heparin was held during dialysis today due for plan for operating room (OR) in the afternoon. PHYSICAL EXAMINATION: VITAL SIGNS: Temperature 98.1, pulse 98, respiratory rate 18, blood pressure 118/66, saturating 98% on 2 liters nasal cannula. INTAKE AND OUTPUT: Weight in the bed scale today is 157.1 kg. GENERAL: Patient is seen awake, alert, oriented, receiving dialysis. HEENT: Extraocular muscles intact. Tongue is moist. Nasal cannula is in place. HEART SOUNDS: Irregularly irregular and mildly tachycardic. LUNGS: Anterior auscultation only. Distant secondary to body habitus, but otherwise clear. ABDOMEN: Soft, obese, nontender. EXTREMITIES: Left arm fistula presently in use and left leg with a brace. Right lower extremity has no edema. NEUROLOGIC: He is at his baseline mentation. LABORATORY STUDIES: White count 6.2, hemoglobin 9.4, platelets 58. Sodium 134, potassium 6.4 (predialysis), bicarbonate 25, BUN 74, magnesium 2.4. INPATIENT MEDICATIONS: Reviewed by myself. He got a dose of calcium gluconate this morning and insulin was adjusted by the primary team. Morphine was likewise adjusted. The remainder of medications were unchanged as compared to yesterday. PROBLEMS: 1. End-stage renal disease on hemodialysis on a Thursday, , Thursday schedule. His dialysis treatment today was complicated today by an infiltration of his fistula and he only received three hours of dialysis rather than his usual four hour treatment. We did dialyze him with a low potassium bath (1.0 mEq). His next dialysis will likely be on . 2. Hyperkalemia secondary to renal failure. Patient needs to be on a low potassium diet. At present, he is nothing by mouth for the OR later this afternoon. When diet is resumed, please put the patient on a 2 gram potassium restriction. He was dialyzed today for three hours with a low potassium bath and I expect his potassium level should be within normal range post dialysis. 3. Hyperglycemia. Patient's blood sugars are uncontrolled given use of steroids with type 2 diabetes underlying and insulin was adjusted by the primary team. Controlling his blood sugars will help with his potassium as well. 4. Anemia in the setting of end-stage renal failure and recent femur fracture. Patient has received 2 units of packed red blood cells on this admission. Latest hemoglobin is 9.4. He continues on Aranesp with dialysis. 5. Left distal femur fracture secondary to mechanical fall. Pending surgical intervention later this afternoon. Patient was dialyzed this morning to improve electrolytes prior to the OR and he received heparin-free dialysis.
[2021-03-19 13:30] VITALS: BP 134/72
[2021-03-19] MEDS ORDERED: ceFAZolin 2 GM/D5W 50 ML IV BAG (J0690 PER 500MG) As Ordered ONE (16:52)
[2021-03-19] MEDS ORDERED: TRANEXAMIC ACID 100 MG/ML 10ML VIAL As Ordered ONE ×2 (16:52→20:06)
[2021-03-19] MEDS ORDERED: ceFAZolin 1GM VIAL (J0690 PER 500MG) As Ordered ONE (17:00)
[2021-03-19 17:22] LABS: CALCIUM LEVEL 8.2 MG/DL (8.8-10.2); CREATININE FOR GFR 4.9 MG/DL (0.70-1.30); GLOMERULAR FILTRATION RATE 12.8 (>49); POTASSIUM SERUM 4.9 MEQ/L (3.5-5.1)
[2021-03-19] MEDS ORDERED: HumaLOG INSULIN (NovoLOG) PER UNIT SC ONE (17:40)
[2021-03-19] MEDS ORDERED: dexameTHASONE 4 MG/ML 1ML VIAL (J1100 PER 1MG) As Ordered ONE (19:16)
[2021-03-19] MEDS ORDERED: ROCURONIUM BROMIDE 50 MG/5 ML VIAL As Ordered ONE ×2 (19:16→20:41)
[2021-03-19] MEDS ORDERED: propofoL 200 MG/20 ML VIAL As Ordered ONE (19:16)
[2021-03-19] MEDS ORDERED: LIDOCAINE 2% 100MG/5ML SDV (FOR ANES.) As Ordered ONE (19:16)
[2021-03-19] MEDS ORDERED: MIDAZOLAM INJ 2MG/2ML VIAL (J2250 PER 1MG) As Ordered ONE ×2 (19:16→23:13)
[2021-03-19] MEDS ORDERED: fentaNYL 100 MCG/2 ML INJECTION (J3010) As Ordered ONE ×2 (19:16→23:28)
[2021-03-19] MEDS ORDERED: ETOMIDATE INJ 20MG/10ML VIAL As Ordered ONE (19:16)
[2021-03-19] MEDS ORDERED: ONDANSETRON 4MG/2ML VIAL As Ordered ONE (19:34)
[2021-03-19] MEDS ORDERED: SUGAMMADEX SODIUM 500 MG/5 ML VIAL (BRIDION) As Ordered ONE (19:34)
[2021-03-19] MEDS ORDERED: INSULIN REGULAR IN 0.9 % NACL 100 UNIT in IV 1 EA IV STA ×4 (20:02→20:14)
[2021-03-19] MEDS ORDERED: INSULIN IV RATE CHANGE DOCUMENTATION ML/HR XX SCH ×2 (20:05→20:15)
[2021-03-19] MEDS ORDERED: PHENYLephrine 500MCG 5ML (100MCG/ML) SYRINGE As Ordered ONE ×2 (21:07→21:42)
[2021-03-19] MEDS ORDERED: ePHEDrine SULFATE 25 MG/5 ML(5MG/ML) SYRINGE As Ordered ONE (21:42)
[2021-03-19 23:18] LABS: ABG HCO3 24.2 MEQ/L (22.0-26.0); ABG O2 SATURATION 97.3 % (95.0-99.0); ABG PARTIAL PRESSURE O2 112.5 mmHg (75.0-100.0); ABG STANDARD HCO3 21.1 MEQ/L (22.0-26.0); ABG TOTAL CO2 26.1 MEQ/L (23.0-31.0)
[2021-03-19] MEDS ORDERED: ONDANSETRON 4MG/2ML VIAL IV PRN (23:30)
[2021-03-19] MEDS ORDERED: NS 1,000 ML IV SCH (23:30)
[2021-03-19] MEDS ORDERED: MIDAZOLAM INJ 2MG/2ML VIAL (J2250 PER 1MG) IV SCH (23:35)
[2021-03-19] MEDS: fentaNYL 100 MCG/2 ML INJECTION (J3010) IV PRN ×2 (23:37→23:58)
[2021-03-19 23:43] LABS: CALCIUM LEVEL 8.9 MG/DL (8.8-10.2); CREATININE FOR GFR 5.23 MG/DL (0.70-1.30); GLOMERULAR FILTRATION RATE 11.9 (>49); POTASSIUM SERUM 5.2 MEQ/L (3.5-5.1)
[2021-03-20] VITALS (57 sets, daily range): BP systolic 98–146; BP diastolic 40–72
[2021-03-20] MEDS: fentaNYL 100 MCG/2 ML INJECTION (J3010) IV PRN ×2 (00:21→00:45)
[2021-03-20] MEDS ORDERED: fentaNYL CITRATE 1,000 MCG in NS 80 ML IV SCH ×10 (00:40→02:30)
[2021-03-20] MEDS ORDERED: MIDAZOLAM INJ 2MG/2ML VIAL (J2250 PER 1MG) IV PRN ×4 (00:40)
[2021-03-20] MEDS: MORPHINE 2 MG/ML 1ML VIAL (J2270) IV PRN ×3 (01:13→05:38)
[2021-03-20] MEDS: MIDAZOLAM INJ 2MG/2ML VIAL (J2250 PER 1MG) IV PRN ×5 (01:34→06:57)
[2021-03-20] MEDS ORDERED: MIDAZOLAM INJ 2MG/2ML VIAL (J2250 PER 1MG) As Ordered ONE (01:47)
[2021-03-20] MEDS ORDERED: MIDAZOLAM INJ 2MG/2ML VIAL (J2250 PER 1MG) IV STA (01:50)
[2021-03-20] MEDS: PALIPERIDONE 3 MG ER TAB (INVEGA) PO SCH ×2 (01:53→16:49)
[2021-03-20] MEDS: HumaLOG INSULIN (NovoLOG) PER UNIT SC SCH ×6 (01:53→20:15)
[2021-03-20] MEDS: DOCUSATE SODIUM 100MG CAPSULE PO SCH ×2 (01:54→20:14)
[2021-03-20] MEDS: SENNA 8.6 MG TAB (SENOKOT) PO SCH ×3 (01:54→20:14)
[2021-03-20] MEDS: OXcarbazepine 300 MG TAB PO SCH ×3 (01:54→20:14)
[2021-03-20] MEDS: LEVEMIR (INSULIN DETEMIR) 1 UNITS/0.01ML SC SCH ×3 (01:55→22:12)
[2021-03-20] MEDS: LIDOCAINE 5% (LIDODERM) PATCH TD SCH ×2 (01:55→20:16)
[2021-03-20] MEDS: ACETAMINOPHEN TAB 650MG DOSE (2X325MG) PO SCH ×5 (01:56→16:49)
--- NOTE | 2021-03-20 04:20 | REPVR ---
PROCEDURE INFORMATION: Exam: XR Chest Exam date and time: 03/20/2021 1:59 AM Age: 66 years old Clinical indication: Device placement; Other: S/P line TECHNIQUE: Imaging protocol: XR of the chest. Views: 1 view. COMPARISON: CR PORTABLE CHEST X-RAY 03/15/2021 4:09 PM FINDINGS: LUNGS and PLEURAL SPACE: Lung volumes are low. Mild hazy opacity again noted at the left lung base may be secondary to mild pneumonitis and/or atelectasis. Previously seen pulmonary vascular congestion has improved. No pneumothorax or significant pleural effusion seen. - MEDIASTINUM: There is no mediastinal shift or widening. - CARDIAC SILHOUETTE: Cardiac size is borderline for technique. - BONY THORAX: Severe osteoarthritic change of the right shoulder noted. - OTHER: There is been placement of a right-sided central catheter, the tip at the level of the brachiocephalic venous confluence. Endotracheal tube has been placed, the tip of the catheter approximately 2.7 cm above the level of the yanira. Transesophageal catheter is been placed, the tip of the catheter is not visualized extending into the abdomen below the level of imaging. - IMPRESSION: Lines and tubes appear adequate as discussed above. - Mild atelectasis and/or pneumonitis at the left lung base. - Slight improvement in pulmonary vascular congestion. - Other findings discussed above. Electronically signed by: Frantz Ramirez On 03/20/2021 04:19:45 AM
[2021-03-20 04:52] LABS: BASO % 0.1 % (0.0-1.0); HEMATOCRIT 25.8 % (42.0-52.0); HEMOGLOBIN 7.9 g/dl (13.5-17.5); LYMPH # 0.4 10^3/uL (1.5-5.0); LYMPH % 3.9 % (24.0-44.0); MEAN CORPUSCULAR HEMOGLOBIN 33.5 pg (27.0-33.0); MEAN CORPUSCULAR HGB CONC 30.6 g/dl (32.0-36.5); MEAN CORPUSCULAR VOLUME 109.3 fl (80.0-96.0); MONO # 1.2 10^3/uL (0.0-0.8); MONO % 10.2 % (2.0-8.0); NEUTROPHILS # 9.7 10^3/uL (1.5-8.5); NEUTROPHILS % 85.1 % (36.0-66.0); PLATELET COUNT, AUTOMATED 168 10^3/uL (150-450); RED BLOOD COUNT 2.36 10^6/uL (4.30-6.10); WHITE BLOOD COUNT 11.3 10^3/uL (4.0-10.0)
[2021-03-20 05:02] LABS: ALBUMIN 2.5 GM/DL (3.2-5.2); BILIRUBIN,TOTAL 0.6 MG/DL (0.2-1.0); CALCIUM LEVEL 8.3 MG/DL (8.8-10.2); CREATININE FOR GFR 5.47 MG/DL (0.70-1.30); GLOMERULAR FILTRATION RATE 11.3 (>49); MAGNESIUM LEVEL 2.1 MG/DL (1.8-2.4); POTASSIUM SERUM 5.3 MEQ/L (3.5-5.1); TOTAL PROTEIN 6.2 GM/DL (6.4-8.2)
[2021-03-20 05:50] LABS: ABG BASE EXCESS -3.1 (-2.0-2.0); ABG HCO3 22.4 MEQ/L (22.0-26.0); ABG O2 SATURATION 98.9 % (95.0-99.0); ABG PARTIAL PRESSURE O2 159.2 mmHg (75.0-100.0); ABG STANDARD HCO3 21.9 MEQ/L (22.0-26.0); ABG TOTAL CO2 23.7 MEQ/L (23.0-31.0); ABG pH (ARTERIAL) 7.345 UNITS (7.350-7.450)
--- NOTE | 2021-03-20 06:41 | RO ---
OPERATIVE NOTE DATE OF OPERATION: 03/20/2021 PREOPERATIVE DIAGNOSIS: Hypotension, need for vascular access. POSTOPERATIVE DIAGNOSIS: Hypotension, need for vascular access. PROCEDURE: Right internal jugular triple lumen venous catheter. SURGEON: PEG WOOD DO [facility] Consent was not obtainable as the patient was sedated on mechanical ventilation. He has had a groin line in for over a week. DESCRIPTION OF PROCEDURE: A time-out was performed with two patient identifiers and identifying correct site and correct procedure. The right IJ was prepped and draped in a sterile manner with Chlorhexidine and full sterile barrier precautions. The patient was already sedated on mechanical ventilation. Under ultrasound guidance the raulerson syringe was then introduced into the IJ on the first pass with return of venous blood flow. A wire was thread through the needle and the needle was removed. The triple lumen catheter was then placed via modified Seldinger technique. There was return of venous blood flow throughout all three ports and flushed easily. The line was sutured in at 15 cm. Post procedure chest x-ray shows no evidence of pneumothorax. The line is in place with the tip in the SVC. Serum impregnated dressing was placed over the site. There were no observed complications. MTDD
--- NOTE | 2021-03-20 06:52 | CR ---
CRITICAL CARE CONSULTATION DATE: 03/19/2021 Critical care time was two hours. This excludes all procedures. HISTORY OF PRESENT ILLNESS: Mr. Valadez is a 66-year-old male. I simply was asked to admit the patient to the ICU after a surgery. I reviewed the chart and the patient has a history of A fib, heart failure, morbid obesity, end-stage renal disease on hemodialysis and a history of hypercarbic respiratory failure on admission. He is on prednisone for an undocumented reason. There is mention of COPD but not by the treating plant operator. Upon my review of the chart, the patient had a left distal femur fracture, required surgical intervention. Apparently he was not able to be extubated as he was in PACU on a vent but there was no physician attending him. He does awake. He was hypercarbic. Vent settings were not adjusted. On my arrival, I adjusted ventilatory settings to increase the respiratory rate to compensate for his hypercarbic respiratory failure. Upon my review of the record, the patient still has a groin line in for over a week. I feel this is an infection risk and therefore we will change it. He had dialysis today but is now more hyperkalemic after the OR. PHYSICAL EXAMINATION: VITAL SIGNS: Temperature is 96.5. Pulse is 80 and regular. He did have bouts of A fib postop. Blood pressure via A-line is 124/59 with a MAP of 78. Oxygen saturation is 100% on 0.40 FiO2, PEEP of 10. GENERAL: The patient is waking up, lifting head. HEENT: He has exophthalmos with pupils that are equal and reactive to light. Mucous membranes are moist. Tongue is midline. Mallampati 4 airway. NECK: Large in circumference. PULMONARY: A few rhonchi without wheeze. No dullness to percussion. No accessory muscle use. CARDIAC: Currently regular S1, S2 with a grade II/ systolic ejection murmur. PMI is difficult to palpate due to body habitus. ABDOMEN: Obese, soft, nontender, nondistended. No discernible hepatosplenomegaly , masses or hernia. EXTREMITIES: There is a left AV fistula in the left upper arm. The left leg is wrapped from recent surgery. No significant pedal edema. NEUROLOGIC: The patient is moving upper arms, not moving lower extremities at this point in time but has received some sedation. He does lift his head off the pillow at times. LABORATORY EVALUATION: White blood cell count is 6.2. Hemoglobin is 9.4, platelet count of 158. Sodium is 136. Potassium is 5.2. Chloride is 104, bicarb of 27, BUN of 47, creatinine of 5.23 with a fasting glucose of 245. Calcium is 8.9. Arterial blood gas initially is 7.21, pCO2 of 62. This is prior to my ventilatory adjustments. Despite being taken to the OR today, he has not had coagulation studies in 9 days. No x-ray has been done postop. I will order this. IMPRESSION: 1. Hypercarbic respiratory failure. Will access for readiness for extubation in the morning, will likely convert to BiPAP. Reportedly he may have COPD, was on steroids, not clear as this was not mentioned in the pulmonary note. 2. Left distal femur fracture. Recent repair. We will ensure adequate patent coverage. 3. End-stage renal disease, managed by nephrology. We will continue reasonable medications. 4. Hyperglycemia, type 2 diabetes. We will stop steroids. We will continue insulin. 5. A fib, currently rate controlled. Eliquis has been held due to surgical intervention, surgeons to comment when anticoagulation is surgically approved. 6. Schizophrenia, schizoaffective disorder. We will continue his antidepressants and antipsychotics. 7. Chronic anemia. 8. Dysphagia. Overall, the patient has many comorbidities including prior history of respiratory failure. CHUY
[2021-03-20] MEDS: IPRATROPIUM 0.5MG/ALBUTEROL 2.5MG INH SOL UD 3ML (DUONEB) NEB SCH ×4 (07:24→20:00)
--- NOTE | 2021-03-20 07:37 | RO ---
OPERATIVE NOTE DATE OF OPERATION: 03/19/2021 TIME: 7 p.m. PREOPERATIVE DIAGNOSIS: Left distal femur fracture. POSTOPERATIVE DIAGNOSIS: Left distal femur fracture. NAME OF OPERATION: Left femur retrograde intramedullary nail. SURGEON: Aramis Loza MD HULL OUTFIT SUPERVISOR: None. SUPERVISING ATTENDING: Aramis Loza MD FINDINGS: The patient had a spiral fracture of the distal femur. INDICATIONS: This was a 66-year-old male with a left distal femur shaft fracture. The patient was on his way to dialysis and sustained a ground-level fall on the March,. He was unable to bear weight on his left lower extremity after the fall. He was admitted to [facility] for further evaluation and treatment. He has a complicated past medical history and was admitted by the tapper operator. In the ICU, the patient was hemodynamically unstable on his arrival to [facility] and hypoxic. He was placed initially on CPAP and changed to BiPAP and had worsening respiratory acidosis. He is currently being managed by the ICU team at the time. He is optimized for surgery today for a left femur intramedullary nail. The patient declined surgery several times. After a delay in surgery, 10 days postoperatively, he finally agreed to surgery and underwent the aforementioned procedure. ANESTHESIA: Please see anesthesia report. TOURNIQUET TIME: None used. ESTIMATED BLOOD LOSS: 100 mL. IV FLUIDS: Please see anesthesia report. IV ANTIBIOTICS: Please see anesthesia report. IMPLANTS: [place]. CULTURES: None. SPECIMENS: None. DESCRIPTION OF PROCEDURE: The patient was met in the preoperative holding area where the patient's operative extremity was signed, the patient's consent was confirmed to be correct, and the patient's identity was confirmed to be correct. The patient was then transferred to the operating theater where he was placed in supine position on a radiolucent flat-top surgical bed. A safety strap secured the patient to the bed. All bony prominences were well padded. The contralateral lower extremity had an SCD placed. A timeout was called to confirm the correct patient, correct operative extremity and correct consent. All staff were in agreement. The patient was then draped in the usual sterile fashion. We began the procedure by obtaining fluoroscopic imaging to locate the fracture location and marking this out with a skin marker. I then used fluoroscopic imaging in order to identify placement of percutaneous Axel Tong percutaneous [id number]-hyibm bone-reducing clamp. I made a small lateral percutaneous incision and a small medial percutaneous incision. I placed a cekxo-of-saigt bone-reducing clamp in order to provisionally reduce the fracture in the coronal and sagittal planes. After this was positioned, I then began the retrograde nailing procedure. I identified the inferior pole of the patella as well as the pubic tubercle and incised the skin just on the medial aspect of the patient's patellar tendon. After incising the skin sharply, I meticulously made my way for my medial parapatellar approach, incised the capsule on the medial inferior aspect of the patient's patella and the medial aspect of the patient's patellar tendon approximately one inch in length. After incising this, I then introduced a soft tissue protector placed in the inferior aspect of the trochlear groove. This was center/centered on the femoral canal on the AP view and just a smudge anterior to Blumensaat's line on the lateral view. I then introduced the threaded guide pin into position which again was in line with the femur on the AP and lateral views, centered in the trochlear groove on the AP view and just anterior to Blumensaat's line. This was advanced to the level of the fracture. While maintaining the soft tissue protector, I then introduced the entry reamer into the level of the fracture. This was then removed with the threaded guide pin. I then introduced a ball-tip guide to the proximal physeal scar which was to the level just proximal to the lesser trochanter. This not only crossed the fracture site but remained within the center of the femoral canal. I then sequentially reamed from a 9.5 to a 13.5, advancing from a 9.5 to 10 to 10.5, to 11 to 11.5, to 12 to 12.5, to 13 to 13.5. At this point, we had a good cortical chatter. I ensured throughout the case that we had maintained provisional reduction with a percutaneous clamp. At this point in time, I then advanced the retrograde intramedullary nail into position and confirmed that it was correctly positioned on the AP and lateral views, it was. I then used the jig in order to place three distal interlocking screws using both the jig for reference as well as fluoroscopic guidance to ensure that I had placed the appropriate length screws. I placed screws in the first, third and fourth holes of the jig. I then turned my attention to the proximal aspect of the nail and placed two percutaneous anterior to posterior proximal interlocking screws using perfect [place] technique. At this point in time, I removed the handle to the retrograde intramedullary nail and copiously irrigated all surgical sites using three liters of normal saline. I then closed the medial parapatellar arthrotomy using #2 FiberWire suture, closed the dermal layer using a Stratafix 2-0 suture and closed the skin using metallic chichi. I closed each of the percutaneous incisions which included three for the percutaneous distal interlocking screws, two for the clamp, lateral and medial and two for the proximal interlocking screws for a total of seven using 2-0 Vicryl for the dermal layer and metallic chichi for the epidermal layer. I then placed a Mepilex dressing over the medial parapatellar surgical incision and Xeroform followed by 4x4s and Tegaderms for each of seven percutaneous surgical incisions. I did, however, use metallic chichi to close each of the percutaneous incisions with the exception of the most proximal two percutaneous incisions which I used 3-0 nylon to close. Both the nylon suture and the metallic chichi will need to be removed in 2-3 weeks. The patient was then extubated without complication and transferred to the postanesthesia care unit. At this point in time, the patient can be weightbearing as tolerated to the left lower extremity. The patient does not ambulate. However, he is able to transfer with full weight on his left lower extremity at this point in time. His care will be transferred to the hospitalist service and we recommend a DVT chemoprophylaxis medication at this point in time. He will follow up at the [facility] orthopedic group in two weeks for a postoperative wound check. He will be educated of the aforementioned findings during rounds.
[2021-03-20] MEDS ORDERED: IPRATROPIUM 0.5MG/ALBUTEROL 2.5MG INH SOL UD 3ML (DUONEB) NEB SCH ×4 (08:00)
--- NOTE | 2021-03-20 08:23 | REP ---
INDICATION: LEFT FEMUR FRACTURE. COMPARISON: None. TECHNIQUE: Intraoperative fluoroscopic imaging using portable C-arm technique. FINDINGS: Patient is noted to be status post open reduction and fixation with intramedullary adi placement for oblique mildly displaced distal femoral diaphyseal fracture. Total fluoroscopic time 350.8 seconds. IMPRESSION: Satisfactory open reduction and fixation. <Electronically signed by Ezra Hartman > 03/20/21 [id number]
[2021-03-20] MEDS: CARVedilol 3.125 MG TAB PO SCH (08:47)
[2021-03-20] MEDS: FLUTICASONE PROP 0.05% NASAL SPRAY 16 GM (FLONASE) SCH (09:00)
[2021-03-20] MEDS ORDERED: CHLORHEXIDINE GLUCONATE 0.12 % 15ML UDC (PERIDEX ORAL RINSE) MT SCH (09:00)
[2021-03-20] MEDS: TAMSULOSIN 0.4 MG CAP PO SCH (09:00)
[2021-03-20] MEDS: VENLAFAXINE **XR** 75MG CAPSULE PO SCH (09:00)
[2021-03-20] MEDS: NYSTATIN 100,000 UNITS/GM TOPICAL PWD 15 GM TOP SCH (09:00)
[2021-03-20] MEDS: **NOTE PATIENT COMMENT** MISC XX SCH (09:00)
[2021-03-20] MEDS: PANTOPRAZOLE 40MG VIAL (C9113 PER 1) IV SCH (10:09)
--- NOTE | 2021-03-20 12:47 | IPNPDOC ---
Text Note Date of Service The patient was seen on 03/20/21. NOTE Subjective: Patient is a 66 year old male with a PMHx of Chronic hypercapnic respiratory failure (likely 2/2 MARCELA/OHS/COPD), Chronic Hypoxia (on Home O2), A fib (on Eliquis), ESRD on HD (TTS), DM2, Hypothyroidism, Chronic anemia, Schizophrenia / Schizoaffective disorder, Morbid obesity who presented to the ER on 03/19 after he fell while at HD. She was noted to have a fracture of his left distal femur. He was admitted to [facility] for further evaluation and treatments patient was initially on the printing plate clerk service and was subsequently transitioned to the hospital service. Orthopedic surgery and nephrology were called on consultation. Unfortunately, he had remained intubated post operatively and hence he was transition to the ICU. Information Security Architect, Dr. Wolf is currently following for vent management. Currently patient is seen and examined at the bedside. He still had remained intubated upon my exam this morning, he was able to follow commands a ppropriately and reported that he was not in pain. Objective: Vitals (See below) General: Lying in bed, appears comfortable, Awake / Alert, Following commands HEENT: NC, AT, +ET tube CVS: RRR, +S1S2 Lungs: Fair air entry b/l, -w/r/r Abdomen: Soft, ND, NT, Obese Extremities: No appreciable edema, - Calf tenderness Imaging: CXR 03/09: Cardiomegaly as before. No acute infiltrate. CT Cervical spine 03/09: No fracture or subluxation seen. Degenerative spondylosis. Some motion artifact. CT head 03/09: Mild vascular calcification and generalized volume loss. Otherwise negative. No evidence of skull fracture or intracranial injury. XR hip/pelvis 03/09: Femoral diaphyseal fracture noted at the edge of the field of view on the left. No hip or pelvic fracture appreciated. Femur XR 03/09: Overriding oblique distal femoral diaphyseal fracture. CTA chest 03/09: No CT evidence of pulmonary thromboembolic disease. Patchy bilateral infiltrates are noted with some degree of atelectasis. There is upper abdominal ascites. The disc at the T5-6 level in the thoracic spine is abnormal question infectious discitis. CT extremity 03/09: Obliquely oriented comminuted fracture of the distal femoral diaphysis with 9 degrees of rotational deformity and slight override. Esophagus XR 03/15: Penetration and aspiration were seen with nectar consistency barium. All other consistencies of barium the patient was able to successfully swallow without penetration or aspiration. Please see detailed speech pathology report for further evaluation. 2.5 minutes of fluoroscopy time was utilized for this procedure. Some fluoroscopic images are performed with last image hold technology. These images require no additional radiation CXR 03/15: Stable exam. CXR 03/20: Lines and tubes appear adequate as discussed above. Mild atelectasis and/or pneumonitis at the left lung base. Slight improvement in pulmonary vascular congestion. Other findings discussed above. Assessment and plan: Acute on Chronic Hypercapnic respiratory failure - likely 2/2 MARCELA / OHS / COPD - Patient was seen and examined this morning while intubated - Patient will likely need to continue with his noninvasive ventilation post extubation, however, he's been noncompliant - Patient will be extubated likely later today - ABG noted this morning - Information Security Architect on consultation; appreciate their input s/p Acute COPD exacerbation - Auscultation is without any wheezing noted - s/p Corticosteroid therapy - c/w inhaled therapy as ordered L distal femur fracture (POD#1) - Patient had a mechanical fall on 03/09 - Imaging noted above - s/p Surgical correction with Left femur retrograde intramedullary nail on 03/[address] Loza - Will start Morphine PRN for pain control A. fib - c/w Rate control with Carvedilol - Will resume Eliquis today; was held for surgery initially HTN - BP well controlled - c/w Carvedilol Troponin elevation - likely 2/2 demand ischemia - Cardiology on consultation; had provided cardiac optimization pre-operatively ESRD on HD (TTS) - c/w HD as scheduled - Next scheduled dialysis for tomorrow - Nephrology on consultation; we appreciate their input IDDDM2 with Hyperglycemia - c/w ISS and Levemir; dose adjusted s/p Hyperkalemia - c/w Dialysis as scheduled Schizophrenia / Schizoaffective disorder - c/w Venlafaxine, Oxcarbazepine, Paliperidone Chronic anemia - likely 2/2 AOCD - c/w Aranesp with HD Dysphagia - c/w Speech therapy evaluation - c/w Modified soft mechanical diet BPH - c/w Tamsulosin GERD - s/p Famotidine from outpatient setting - c/w Protonix DVT prophylaxis - c/w TEDs/Sequentials Code Status: - Full code Disposition: - Pending clinical improvement VS,Salvador, I+O VS, Salvador, I+O Laboratory Tests 03/19/21 16:49 03/19/21 23:15 03/20/21 04:22 Vital Signs Date Time Temp Pulse Resp B/P (MAP) Pulse Ox O2 Delivery O2 Flow Rate FiO2 03/20/21 10:40 30 03/20/21 09:00 84 124/52 98 Ventilator 03/20/21 08:00 98.7 22 03/19/21 13:30 2.0 I&O- Last 24 Hours up to 6 AM 03/20/21 06:00 Intake Total 960 ml Output Total 1457 ml Balance -497 ml PEDRO LUIS VELASQUEZ MD Mar 20, 2021 12:47
[2021-03-20 13:25] LABS: BASO % 0.1 % (0.0-1.0); EOS # 0.1 10^3/uL (0.0-0.5); EOS % 0.6 % (0.0-3.0); HEMATOCRIT 25.3 % (42.0-52.0); HEMOGLOBIN 7.7 g/dl (13.5-17.5); LYMPH # 0.6 10^3/uL (1.5-5.0); LYMPH % 6.7 % (24.0-44.0); MEAN CORPUSCULAR HEMOGLOBIN 33.6 pg (27.0-33.0); MEAN CORPUSCULAR HGB CONC 30.4 g/dl (32.0-36.5); MEAN CORPUSCULAR VOLUME 110.5 fl (80.0-96.0); NEUTROPHILS # 6.9 10^3/uL (1.5-8.5); NEUTROPHILS % 79.7 % (36.0-66.0); PLATELET COUNT, AUTOMATED 165 10^3/uL (150-450); RED BLOOD COUNT 2.29 10^6/uL (4.30-6.10); WHITE BLOOD COUNT 8.7 10^3/uL (4.0-10.0)
[2021-03-20] MEDS ORDERED: MORPHINE 2 MG/ML 1ML VIAL (J2270) IV PRN (13:35)
[2021-03-20 13:46] LABS: ALBUMIN 2.5 GM/DL (3.2-5.2); BILIRUBIN,TOTAL 0.6 MG/DL (0.2-1.0); CALCIUM LEVEL 8.4 MG/DL (8.8-10.2); CREATININE FOR GFR 5.72 MG/DL (0.70-1.30); GLOMERULAR FILTRATION RATE 10.7 (>49); MAGNESIUM LEVEL 2.3 MG/DL (1.8-2.4); POTASSIUM SERUM 4.9 MEQ/L (3.5-5.1); TOTAL PROTEIN 6.5 GM/DL (6.4-8.2)
[2021-03-20] MEDS ORDERED: LIDOCAINE 1% SDV 5ML VIAL SC PRN (19:25)
[2021-03-20] MEDS ORDERED: SODIUM CHLORIDE 0.9% 1000ML IV PRN (19:25)
[2021-03-20] MEDS: APIXABAN 5 MG TAB (ELIQUIS) PO SCH (20:14)
--- NOTE | 2021-03-20 21:21 | IPN ---
NEPHROLOGY PROGRESS NOTE DATE: 03/20/2021 SUBJECTIVE: Mr. Valadez is seen and examined this morning in the Intensive Care Unit. He is postop day one from left femur retrograde intramedullary nail. He was not extubated postop. He was transferred to the ICU under the care of Dr. Wolf. He has minimum FiO2 requirements (30% at present). He has had worsening anemia status post O.R. and he is pending blood transfusion. Estimated blood loss in the O.R. was recorded as 100 mL. Dialysis yesterday removed 1.3 liters. OBJECTIVE: PHYSICAL EXAMINATION: VITAL SIGNS: Temperature 98.3, pulse 88, respiratory rate 20, blood pressure 146/60, saturating 100% on 30% FiO2. GENERAL APPEARANCE: The patient is seen intubated and sedated with Fentanyl, a morbidly obese male. HEENT: Pupils are reactive to light. Endotracheal tube is in place. NECK: Jugular veins cannot be assessed secondary to obesity. There is a central line present in the right IJ. HEART: Sounds are irregularly irregular. LUNGS: Symmetric breath sounds, fairly clear to auscultation. No crackles or rales. ABDOMEN: Obese and soft. There are bowel sounds. The patient no longer has a femoral line. EXTREMITIES: There is a fistula in the left arm which has some ecchymosis and infiltration. His left lower extremity is wrapped. There is 1+ pedal edema on the left and trace edema on the right. NEUROLOGICAL: He is sedate. LABORATORY STUDIES: Sodium 135, potassium 4.9, bicarbonate 25, BUN 56, magnesium 2.3. Hemoglobin 7.7, platelet count 165. Blood gas - pH 7.34, PcO2 42, PO2 159. IMAGING: Chest x-ray done overnight shows mild atelectasis and various tubes and lines. INPATIENT MEDICATIONS: The patient's medications were reviewed by myself. He is on a Fentanyl drip. He was on normal saline at 30 mL an hour. This has been stopped. He is on Eliquis 5 mg twice daily, Versed p.r.n., Morphine. His Prednisone has been discontinued. The remainder medications are unchanged as compared to yesterday. PROBLEMS: 1. End-stage renal disease, on hemodialysis on a Thursday, , Thursday schedule - The patient was dialyzed yesterday with about 1.4 liters of fluid removed. His fistula then infiltrated and his dialysis treatment was terminated early. His next dialysis will be on , and I have discussed the same with partnership manager. He is very mildly hyperkalemic but nothing that cannot wait to be addressed with dialysis tomorrow. His volume status is likewise acceptable with minimal FiO2 requirements on the ventilator. 2. Anemia in the setting of end-stage renal failure and recent femur fracture, now postop day one from intramedullary nail. His hemoglobin is down to 7.7 and TRBC transfusion is pending. If hemoglobin remains less than 8 tomorrow, he will be transfused again with dialysis. He is back on his chronic Eliquis anticoagulation. 3. Atrial fibrillation - The patient continues on once daily beta herbert, and he is back on Eliquis anticoagulation now. 4. Hypertension well controlled with the current regimen and no blood pressure issues. Continue current medication. 5. Hyperkalemia mild and will be addressed with dialysis tomorrow. 6. Ventilator dependent respiratory failure - The patient was not extubated after his orthopedic repair. He has minimal FiO2 requirements. His blood gas is satisfactory. Chest x-ray likewise does not show any significant volume issues. I expect he will be extubated within the coming 24 hours.
[2021-03-21] VITALS (7 sets, daily range): BP systolic 101–145; BP diastolic 51–62
[2021-03-21] MEDS: ACETAMINOPHEN TAB 650MG DOSE (2X325MG) PO SCH ×5 (00:48→23:53)
[2021-03-21] MEDS: MORPHINE 2 MG/ML 1ML VIAL (J2270) IV PRN ×3 (04:06→20:12)
[2021-03-21 04:17] LABS: BASO % 0.1 % (0.0-1.0); EOS # 0.3 10^3/uL (0.0-0.5); HEMATOCRIT 26.3 % (42.0-52.0); HEMOGLOBIN 8.1 g/dl (13.5-17.5); LYMPH # 0.5 10^3/uL (1.5-5.0); LYMPH % 5.7 % (24.0-44.0); MEAN CORPUSCULAR HEMOGLOBIN 33.3 pg (27.0-33.0); MEAN CORPUSCULAR HGB CONC 30.8 g/dl (32.0-36.5); MEAN CORPUSCULAR VOLUME 108.2 fl (80.0-96.0); MONO # 0.9 10^3/uL (0.0-0.8); MONO % 10.3 % (2.0-8.0); NEUTROPHILS # 7.2 10^3/uL (1.5-8.5); NEUTROPHILS % 79.8 % (36.0-66.0); PLATELET COUNT, AUTOMATED 160 10^3/uL (150-450); RED BLOOD COUNT 2.43 10^6/uL (4.30-6.10); WHITE BLOOD COUNT 9.1 10^3/uL (4.0-10.0)
[2021-03-21 05:04] LABS: ALBUMIN 2.4 GM/DL (3.2-5.2); BILIRUBIN,TOTAL 0.6 MG/DL (0.2-1.0); CREATININE FOR GFR 6.64 MG/DL (0.70-1.30); MAGNESIUM LEVEL 2.3 MG/DL (1.8-2.4); POTASSIUM SERUM 5.1 MEQ/L (3.5-5.1); TOTAL PROTEIN 6.1 GM/DL (6.4-8.2)
[2021-03-21] MEDS: HumaLOG INSULIN (NovoLOG) PER UNIT SC SCH ×4 (07:30→20:10)
[2021-03-21] MEDS: IPRATROPIUM 0.5MG/ALBUTEROL 2.5MG INH SOL UD 3ML (DUONEB) NEB SCH ×4 (07:41→19:33)
--- NOTE | 2021-03-21 12:52 | IPNPDOC ---
Date Seen The patient was seen on 03/21/21. Progress Note SUBJECTIVE: Pradeep was seen and examined this morning (03/21) by the hospitalist service while receiving his regularly scheduled hemodialysis. He underwent surgical repair for his left distal femur fracture yesterday (03/20) with orthopedics. He had remained intubated post surgery through 12 noon on 03/20, but was successfully extubated and was back to using his CPAP with bled in oxygen overnight. He did receive 1 unit of blood yesterday following the surgery with a hemoglobin of 7.7. Upon questioning this morning, patient denies any current or overnight fever, chills, night sweats, chest pain, chest pressure, shortness of breath, abdominal pain/nausea/vomiting. Overall, he reports his pain level is relatively well controlled. He was switched this morning to a pured diet. OBJECTIVE PHYSICAL EXAMINATION: VITAL SIGNS: Please see below. GENERAL: Morbidly obese white male lying in hemodialysis bed. He is somnolent but arousable, oriented x3. HEENT: NC, AT. Bilateral exophthalmos unchanged from previous exams. Noninjected sclera. Wearing nasal cannula oxygen. Neck: There is a TLC present in the right IJ. Oral cavity: Moderately dry mucous membranes. Edentulous. CARDIOVASCULAR: Similar to prior exams, heart sounds are quite distant making it difficult to appreciate with any type of accuracy for significant murmurs or rubs. Rate is controlled. RESPIRATORY: Wearing 3 L NC supplemental oxygen. Decreased tidal volume similar to prior exams. There is some mild bibasilar rhonchi present laterally (due to habitus unable to auscultate posteriorly). No significant accessory muscle use visualized. Symmetric chest expansion. ABDOMINAL: Morbidly obese. Hypoactive bowel sounds throughout. Mild right lower quadrant tenderness with no guarding or rigidity. Difficult to assess for hepatosplenomegaly secondary to habitus. EXTREMITIES: There is a Michel wrap over the left lower extremity with lidocaine patches in place. There is trace nonpitting edema of the right lower extremity. NEUROLOGICAL: Somnolent but arousable and oriented x3. Nondysarthric speech. LABORATORY DATA, IMAGING STUDIES, MICROBIOLOGY: Please see below. ASSESSMENT AND PLAN: This is a 66-year-old male with notable H/oh ESRD on HD (TTHSA), chronic hypercapnic respiratory failure likely 2/2 MARCELA/COPD/suspected OHS with chronic hypoxia (on home O2), paroxysmal A. fib (on Eliquis), type 2 diabetes, anemia of chronic renal disease, hypothyroidism, morbid obesity, schizoaffective/sc hizophrenia disorder, who presented to the ED on 03/09 after sustaining a fall at hemodialysis that resulted in a left distal femur fracture. Upon admission he was in acute on chronic hypercapnic respiratory failure and was initially under the care of the senior c developer service. As acidosis improved he was switched over the hospitalist service and ultimately underwent femur surgery on 03/20. #Acute on chronic hypercapnic respiratory failurelikely 2/2 combination of MARCELA/COPD/OHS -ABG on the morning of 03/20 showed improvement in respiratory acidosis -Remained intubated for a few hours post 03/20 surgery with pulmonary on consultation; successfully extubated in the afternoon of 03/20 -Was compliant with CPAP through the overnight with blood and oxygen #S/p acute COPD exacerbation -Exam this morning once again without any significant wheezes noted; patient is status post initial steroid therapy -Continue with inhaler regimen #End-stage renal disease on hemodialysis, -Undergoing regular scheduled hemodialysis today; goal of 2 L removal We continue to appreciate the collaborative care and insights from nephrology #Type 2 diabetes, better controlled -Patient is on sliding scale insulin as well as twice daily long-acting; we had increased this dosing on 03/19 to 15 units twice daily, sugars have been well controlled since #Chronic anemia related to end-stage renal disease -S/p 1 unit of packed cells on 03/20 when Hgb was 7.7; repeat Hgb on 03/21 was 8.1.-Patient receives Aranesp with 1 hemodialysis session each week; likely suspect post dialysis today to concentrate blood more -Spoke with nephrology (Dr. Duron) who recommended that should repeat hemoglobin on 03/22 be less than 8, can give another 1 unit #Left distal femur fracture, s/p left femur retrograde intramedullary nail surgical repair on 03/20 -Patient is postop day #1 -Home Eliquis continued post surgery -Morphine as needed for pain control was initiated post surgery CODE STATUS: Full code Disposition: Pending continued stability stat status post surgery as well as PT/OT management; will return to [facility] upon discharge VS[facility] Sign[facility]/I&O Vital Signs Date Time Temp Pulse Resp B/P (MAP) Pulse Ox O2 Delivery O2 Flow Rate FiO2 03/21/21 08:00 3.0 03/21/21 04:16 16 03/21/21 04:00 98.6 82 120/62 99 NIPPV (BIPAP/CPAP) 03/20/21 14:00 35 I&O- Last 24 Hours up to 6 AM 03/21/21 06:00 Intake Total 815 ml Balance 815 ml Laboratory Data 24H LABS Laboratory Tests 2 03/20/21 13:00: Immature Granulocyte % (Auto) 0.9, Neutrophils (%) (Auto) 79.7H, Lymphocytes (%) (Auto) 6.7L, Monocytes (%) (Auto) 12.0H, Eosinophils (%) (Auto) 0.6, Basophils (%) (Auto) 0.1, Neutrophils # (Auto) 6.9, Lymphocytes # (Auto) 0.6L, Monocytes # (Auto) 1.0H, Eosinophils # (Auto) 0.1, Basophils # (Auto) 0.0, Nucleated Red Blood Cells % (auto) 0.0, Anion Gap 8, Glomerular Filtration Rate 10.7L, Calcium Level 8.4L, Magnesium Level 2.3, Total Bilirubin 0.6, Aspartate Amino Transf ( AST/SGOT) 9, Alanine Aminotransferase (ALT/SGPT) 25, Alkaline Phosphatase 84, Total Protein 6.5, Albumin 2.5L, Albumin/Globulin Ratio 0.6 03/20/21 13:07: Bedside Glucose (Misc Panel) 253H 03/20/21 16:51: Bedside Glucose (Misc Panel) 302H 03/20/21 20:05: Bedside Glucose (Misc Panel) 262H 03/21/21 04:03: Immature Granulocyte % (Auto) 1.1, Neutrophils (%) (Auto) 79.8H, Lymphocytes (%) (Auto) 5.7L, Monocytes (%) (Auto) 10.3H, Eosinophils (%) (Auto) 3.0, Basophils (%) (Auto) 0.1, Neutrophils # (Auto) 7.2, Lymphocytes # (Auto) 0.5L, Monocytes # (Auto) 0.9H, Eosinophils # (Auto) 0.3, Basophils # (Auto) 0.0, Nucleated Red Blood Cells % (auto) 0.0, Anion Gap 8, Glomerular Filtration Rate 9.0L, Calcium Level 8.0L, Magnesium Level 2.3, Total Bilirubin 0.6, Aspartate Amino Transf (AST/SGOT) 8, Alanine Aminotransferase (ALT/SGPT) 18, Alkaline Phosphatase 88, Total Protein 6.1L, Albumin 2.4L, Albumin/Globulin Ratio 0.6 CBC/BMP Laboratory Tests 03/20/21 13:00 03/21/21 04:03 GME ATTESTATION GME ATTESTATION My faculty preceptor for this patient encounter was physically present during the encounter and was fully available. All aspects of the patient interview, exa mination, medical decision making process, and medical care plan development were reviewed and approved by the faculty preceptor. The faculty preceptor is aware and concurs with the plan as stated in the body of this note and will attest to such by his/her cosignature. ATTENDING NOTE I, Barbara Velasquez, have independently examined this patient and performed my own physical exam, as well as reviewed the documentation and edited where necessary with the resident. For medical students we have performed the physical exam together and discussed medical decision making and I have verified the history. I have discussed in detail with the resident / student the findings and plan of treatment as documented by the resident / student and edited their note. I agree with their findings and treatment plan and have edited their documentation. I will continue to follow the patient during this hospital stay. MARLON BONDS D.O. Mar 21, 2021 12:51 BARBARA VELASQUEZ MD Mar 21, 2021 13:50
[2021-03-21] MEDS: CARVedilol 3.125 MG TAB PO SCH (13:20)
[2021-03-21] MEDS: SENNA 8.6 MG TAB (SENOKOT) PO SCH ×2 (13:20→20:11)
[2021-03-21] MEDS: VENLAFAXINE **XR** 75MG CAPSULE PO SCH (13:21)
[2021-03-21] MEDS: OXcarbazepine 300 MG TAB PO SCH ×2 (13:21→20:11)
[2021-03-21] MEDS: TAMSULOSIN 0.4 MG CAP PO SCH (13:21)
[2021-03-21] MEDS: LEVEMIR (INSULIN DETEMIR) 1 UNITS/0.01ML SC SCH ×2 (13:21→20:49)
[2021-03-21] MEDS: PANTOPRAZOLE 40MG VIAL (C9113 PER 1) IV SCH (13:21)
[2021-03-21] MEDS: APIXABAN 5 MG TAB (ELIQUIS) PO SCH ×2 (13:21→20:11)
[2021-03-21] MEDS: **NOTE PATIENT COMMENT** MISC XX SCH (13:22)
[2021-03-21] MEDS: NYSTATIN 100,000 UNITS/GM TOPICAL PWD 15 GM TOP SCH (13:22)
[2021-03-21] MEDS: FLUTICASONE PROP 0.05% NASAL SPRAY 16 GM (FLONASE) SCH (13:22)
--- NOTE | 2021-03-21 14:13 | IPNPDOC ---
Text Note Date of Service The patient was seen on 03/21/21. NOTE Subjective: Mr. Valadez was seen and examined today during the dialysis session. He is getting his dialysis and likely we would be removing 1.7 L today. He does have an left arm infiltration near the cannula. He got his surgery done day before yesterday 03/19/2020 and was extubated yesterday. Objective: Physical exam: General: Patient was laying in bed, was more awake and alert today. He is a morbidly obese male. Cardiac: S1 and S2 were heard, irregular regular heart rate. No murmurs appreciated. Lungs: Clear lung sounds are appreciated in the upper lobes, could not appreciate the lower lobes much given his body habitus and laying position while getting his dialysis. Abdomen: Obese, positive bowel sounds, soft to palpation. Extremities: He does have infiltration and ecchymosis in his left arm from her other catheter. He has 1+ pedal edema in bilateral legs. Assessment/plan: Mr. Valadez is a 66-year-old male with extensive past medical history ESRD on hemodialysis TTS, A. fib, type 2 diabetes, hypothyroidism, morbid obesity, MARCELA COPD, schizophrenia versus schizoaffective disorder who presented to ED after a fall had a left femoral fracture. End-stage renal disease : -Patient is on hemodialysis on TTS schedule. He is getting his dialysis today and likely to remove 1.7 L of fluid. Infiltration of the fistula on his left arm. His labs potassium 5.1. He did get 1 unit of blood, 03/20/2021 Diastolic congestive heart failure which cannot be assessed due to his underlying A. fib, LVEF 45%, right ventricular dilation and pulmonary hypertension. -Volume status is actively managed by his dialysis Anemia of chronic disease: -Likely due to end-stage renal disease who had recent fracture of his femur. Was down to 7.7 following the surgery and had 1 blood transfusion 03/20/2021. Atrial fibrillation: - Patient is on beta-herbert and is back on Eliquis for anticoagulation. Hyperkalemia: - Patient hyperkalemia is under control he is getting his dialysis today. VS,Fishbone, I+O VS, Fishbone, I+O Laboratory Tests 03/21/21 04:03 Vital Signs Date Time Temp Pulse Resp B/P (MAP) Pulse Ox O2 Delivery O2 Flow Rate FiO2 03/21/21 13:31 3.0 03/21/21 13:20 95 145/59 03/21/21 13:08 98.2 24 97 Nasal Cannula 03/20/21 14:00 35 I&O- Last 24 Hours up to 6 AM 03/21/21 06:00 Intake Total 815 ml Balance 815 ml Dianne Singleton MD Mar 21, 2021 14:13
[2021-03-21] MEDS: PALIPERIDONE 3 MG ER TAB (INVEGA) PO SCH (17:24)
[2021-03-21] MEDS: PERCOCET 5MG/325MG TAB PO PRN (17:24)
[2021-03-21] MEDS: LIDOCAINE 5% (LIDODERM) PATCH TD SCH (20:09)
[2021-03-21] MEDS: DOCUSATE SODIUM 100MG CAPSULE PO SCH (20:10)
[2021-03-22] VITALS (15 sets, daily range): BP systolic 93–123; BP diastolic 50–69
[2021-03-22 04:34] LABS: BASO % 0.1 % (0.0-1.0); EOS # 0.5 10^3/uL (0.0-0.5); EOS % 6.2 % (0.0-3.0); HEMOGLOBIN 7.5 g/dl (13.5-17.5); LYMPH # 0.4 10^3/uL (1.5-5.0); LYMPH % 5.3 % (24.0-44.0); MEAN CORPUSCULAR HEMOGLOBIN 33.5 pg (27.0-33.0); MEAN CORPUSCULAR HGB CONC 31.3 g/dl (32.0-36.5); MEAN CORPUSCULAR VOLUME 107.1 fl (80.0-96.0); MONO % 11.6 % (2.0-8.0); NEUTROPHILS # 6.2 10^3/uL (1.5-8.5); NEUTROPHILS % 75.7 % (36.0-66.0); PLATELET COUNT, AUTOMATED 145 10^3/uL (150-450); RED BLOOD COUNT 2.24 10^6/uL (4.30-6.10); WHITE BLOOD COUNT 8.2 10^3/uL (4.0-10.0)
[2021-03-22 05:28] LABS: ALBUMIN 2.1 GM/DL (3.2-5.2); BILIRUBIN,TOTAL 0.5 MG/DL (0.2-1.0); CALCIUM LEVEL 7.4 MG/DL (8.8-10.2); CREATININE FOR GFR 4.63 MG/DL (0.70-1.30); GLOMERULAR FILTRATION RATE 13.7 (>49); MAGNESIUM LEVEL 1.9 MG/DL (1.8-2.4); POTASSIUM SERUM 4.2 MEQ/L (3.5-5.1); TOTAL PROTEIN 5.6 GM/DL (6.4-8.2)
[2021-03-22] MEDS: ACETAMINOPHEN TAB 650MG DOSE (2X325MG) PO SCH ×3 (05:44→17:56)
[2021-03-22] MEDS: IPRATROPIUM 0.5MG/ALBUTEROL 2.5MG INH SOL UD 3ML (DUONEB) NEB SCH ×4 (07:06→19:28)
[2021-03-22] MEDS: PANTOPRAZOLE 40MG VIAL (C9113 PER 1) IV SCH (08:03)
[2021-03-22] MEDS: VENLAFAXINE **XR** 75MG CAPSULE PO SCH (08:03)
[2021-03-22] MEDS: APIXABAN 5 MG TAB (ELIQUIS) PO SCH ×2 (08:04→20:33)
[2021-03-22] MEDS: TAMSULOSIN 0.4 MG CAP PO SCH (08:04)
[2021-03-22] MEDS: HumaLOG INSULIN (NovoLOG) PER UNIT SC SCH ×4 (08:04→20:13)
[2021-03-22] MEDS: SENNA 8.6 MG TAB (SENOKOT) PO SCH ×2 (08:04→20:33)
[2021-03-22] MEDS: LEVEMIR (INSULIN DETEMIR) 1 UNITS/0.01ML SC SCH ×2 (08:05→20:35)
[2021-03-22] MEDS: FLUTICASONE PROP 0.05% NASAL SPRAY 16 GM (FLONASE) SCH (08:05)
[2021-03-22] MEDS: **NOTE PATIENT COMMENT** MISC XX SCH (08:06)
[2021-03-22] MEDS: NYSTATIN 100,000 UNITS/GM TOPICAL PWD 15 GM TOP SCH (08:06)
[2021-03-22] MEDS: CARVedilol 3.125 MG TAB PO SCH (08:15)
[2021-03-22] MEDS ORDERED: NEOSPORIN TOP OINT 15GM TOP ONE (08:35)
[2021-03-22] MEDS ORDERED: NEOSPORIN OINT 0.9 GM PKT TOP ONE (08:50)
[2021-03-22] MEDS: OXcarbazepine 300 MG TAB PO SCH ×2 (12:31→20:33)
[2021-03-22] MEDS: PERCOCET 5MG/325MG TAB PO PRN (14:03)
--- NOTE | 2021-03-22 15:04 | IPNPDOC ---
Text Note Date of Service The patient was seen on 03/22/21. NOTE Subjective: Patient is a 66 year old male with a PMHx of Chronic hypercapnic respiratory failure (likely 2/2 MARCELA/OHS/COPD), Chronic Hypoxia (on Home O2), A fib (on Eliquis), ESRD on HD (TTS), DM2, Hypothyroidism, Chronic anemia, Schizophrenia / Schizoaffective disorder, Morbid obesity who presented to the ER on 03/19 after he fell while at HD. She was noted to have a fracture of his left distal femur. He was admitted to [facility] for further evaluation and treatments patient was initially on the meal grinder tender service and was subsequently transitioned to the hospital service. Orthopedic surgery and nephrology were called on consultation. Currently patient is seen and examined at the bedside. Patient appears to be doing relatively fine. He denies any nausea, vomiting, chest pain or shortness of breath. Denies any significant cough. Denies any abdominal pain. Denies any diarrhea. Patient reports that he is hungry. Objective: Vitals (See below) General: Patient is lying in bed, appears comfortable, not in any acute distr ess. Reports is hungry, is awake and alert HEENT: NC, AT CVS: RRR, +S1S2 Lungs: Fair air entry b/l, no evidence of wheezing / crackles / rales Abdomen: Soft but obese, morbidly, nondistended and nontender Extremities: Left lower extremity with dressing in place. No evidence of edema Imaging: CXR 03/09: Cardiomegaly as before. No acute infiltrate. CT Cervical spine 03/09: No fracture or subluxation seen. Degenerative spondylosis. Some motion artifact. CT head 03/09: Mild vascular calcification and generalized volume loss. Otherwise negative. No evidence of skull fracture or intracranial injury. XR hip/pelvis 03/09: Femoral diaphyseal fracture noted at the edge of the field of view on the left. No hip or pelvic fracture appreciated. Femur XR 03/09: Overriding oblique distal femoral diaphyseal fracture. CTA chest 03/09: No CT evidence of pulmonary thromboembolic disease. Patchy bilateral infiltrates are noted with some degree of atelectasis. There is upper abdominal ascites. The disc at the T5-6 level in the thoracic spine is abnormal question infectious discitis. CT extremity 03/09: Obliquely oriented comminuted fracture of the distal femoral diaphysis with 9 degrees of rotational deformity and slight override. Esophagus XR 03/15: Penetration and aspiration were seen with nectar consistency barium. All other consistencies of barium the patient was able to successfully swallow without penetration or aspiration. Please see detailed speech pathology report for further evaluation. 2.5 minutes of fluoroscopy time was utilized for this procedure. Some fluoroscopic images are performed with last image hold technology. These images require no additional radiation CXR 03/15: Stable exam. CXR 03/20: Lines and tubes appear adequate as discussed above. Mild atelectasis and/or pneumonitis at the left lung base. Slight improvement in pulmonary vascular congestion. Other findings discussed above. Assessment and plan: Acute on Chronic Hypercapnic respiratory failure - likely 2/2 MARCELA / OHS / COPD - Patient reports that his breathing is doing relatively fine - He is currently on his baseline level of oxygen at 3 L nasal cannula - s/p Intubation - c/w CPAP therapy at night; patient has been non-compliant s/p Acute COPD exacerbation - Auscultation is without any wheezing noted - s/p Corticosteroid therapy - c/w inhaled therapy as ordered L distal femur fracture (POD#3) - Patient had a mechanical fall on 03/09 - Imaging noted above - s/p Surgical correction with Left femur retrograde intramedullary nail on 03/[address] Loza - c/w Oxycodone / Morphine PRN for pain control Normocytic anemia - likely 2/2 recent surgery and AOCD 2/2 ESRD - Currently patient is have any evidence of bleeding - Hemodynamically stable and afebrile - s/p 3 units of PRBC - Will transfuse 2 units PRBC - Will receive iron infusion during next week's dialysis session A. fib - Currently rate controlled - c/w Rate control with Carvedilol - c/w Eliquis HTN - BP well controlled - c/w Carvedilol Troponin elevation - likely 2/2 demand ischemia - Cardiology on consultation; had provided cardiac optimization pre-operatively ESRD on HD (TTS) - c/w HD as scheduled - Next scheduled dialysis for tomorrow - Nephrology on consultation; we appreciate their input IDDDM2 with Hyperglycemia - c/w ISS and Levemir; dose adjusted s/p Hyperkalemia - c/w Dialysis as scheduled Schizophrenia / Schizoaffective disorder - c/w Venlafaxine, Oxcarbazepine, Paliperidone Chronic anemia - likely 2/2 AOCD - c/w Aranesp with HD Dysphagia - c/w Speech therapy evaluation - c/w Modified soft mechanical diet BPH - c/w Tamsulosin GERD - s/p Famotidine from outpatient setting - c/w Protonix DVT prophylaxis - c/w TEDs/Sequentials Code Status: - Full code Disposition: - Pending clinical improvement - Will transition to ALC status VS,Fishbone, I+O VS, Fishbone, I+O Laboratory Tests 03/22/21 04:18 Vital Signs Date Time Temp Pulse Resp B/P (MAP) Pulse Ox O2 Delivery O2 Flow Rate FiO2 03/22/21 14:33 20 03/22/21 14:03 84 108/62 95 Nasal Cannula 3.0 03/22/21 12:48 98.5 03/20/21 14:00 35 I&O- Last 24 Hours up to 6 AM 03/22/21 06:00 Intake Total 888 ml Output Total 1700 ml Balance -812 ml PEDRO LUIS VELASQUEZ MD Mar 22, 2021 15:04
[2021-03-22] MEDS: PALIPERIDONE 3 MG ER TAB (INVEGA) PO SCH (17:56)
[2021-03-22] MEDS ORDERED: DARBEPOETIN 100 MCG/0.5 ML *DIALYSIS* SYRINGE (J0882) IV SCH (18:40)
[2021-03-22] MEDS: DOCUSATE SODIUM 100MG CAPSULE PO SCH (20:33)
[2021-03-22] MEDS: LIDOCAINE 5% (LIDODERM) PATCH TD SCH (20:34)
--- NOTE | 2021-03-22 21:27 | IPN ---
PROGRESS NOTE DATE: 03/22/2021 SUBJECTIVE: Pradeep is seen and examined this morning at the bedside. He was dialyzed yesterday with a total of 1.7 liters of fluid removed. He tolerated his treatment without any issue. Laboratory studies today show ongoing anemia; hemoglobin down to 7.5. He is being transfused 2 units of packed red blood cells by the primary team. He tells me that he wants to drink coffee, which is the same request that he has made the past couple of days. He also says he misses the [facility] and hopes to get out of the hospital soon and complains of pain at the site of a left distal femur repair. No other complaints are offered. OBJECTIVE: VITAL SIGNS: Temperature 98.4, pulse 87, respiratory rate 18, blood pressure 123/64, saturating 98% on 3 liters nasal cannula. INTAKE/OUTPUT: Intake yesterday was 870 cc. Dialysis removed 1.7 liter. Weight in the bed scale today is 155.8 kg. GENERAL: Patient is seen lying in bed, morbidly obese male, awake, alert and oriented to person, place and situation. He is at his usual baseline mentation. HEENT: Extraocular muscles are intact. Tongue is moist. Jugular veins cannot be assessed secondary to body habitus. HEART: Sounds are regular, S1, S2. LUNGS: Anterior auscultation only, distant and diminished secondary to body habitus. He looks comfortable on nasal cannula. ABDOMEN: Soft, obese and nontender. EXTREMITIES: There is no edema on the right lower extremity. There is wrappings on his left leg that comes up to the distal thigh. There is a fistula in the left arm that has infiltration and ecchymosis. There is a central line present in the right IJ. NEUROLOGIC: He is at his baseline mentation and follows simple commands and answers simple questions appropriately. LABORATORY DATA: Hemoglobin 7.5, platelets 145,000, white count 8.2. Sodium 138, potassium 4.2, bicarbonate 29, magnesium 1.9, albumin 2.1. INPATIENT MEDICATIONS: I note no changes as compared to yesterday with the exception of patient being started on p.r.n. Percocet. PROBLEMS: 1. End-stage renal disease on hemodialysis on a Thursday, , Thursday schedule: He was dialyzed yesterday and 1.7 liters of fluid were removed. He will be dialyzed again tomorrow. If hemoglobin remains less than 8 tomorrow, I will transfuse him again with dialysis. His electrolytes are otherwise acceptable. He had a recent infiltration of his left arm fistula and that is improving. 2. Anemia secondary to end-stage renal failure, recent femur fracture; status post orthopedic repair: Hemoglobin is down to 7.5 today, he is being transfused 2 more units of packed red blood cells. He is back on his chronic Eliquis anticoagulation. If hemoglobin remains less than 8 tomorrow, he will be transfused again. I have increased the dose of Aranesp with dialysis. 3. Hypertension: Blood pressures are controlled, continue with current regimen.
[2021-03-23] MEDS: ACETAMINOPHEN TAB 650MG DOSE (2X325MG) PO SCH ×5 (00:26→23:31)
[2021-03-23 06:00] VITALS: BP 114/47
[2021-03-23] MEDS: OXcarbazepine 300 MG TAB PO SCH ×2 (06:27→23:32)
[2021-03-23] MEDS: TAMSULOSIN 0.4 MG CAP PO SCH (06:28)
[2021-03-23] MEDS: VENLAFAXINE **XR** 75MG CAPSULE PO SCH (06:28)
[2021-03-23] MEDS: SENNA 8.6 MG TAB (SENOKOT) PO SCH ×2 (06:28→23:32)
[2021-03-23] MEDS: APIXABAN 5 MG TAB (ELIQUIS) PO SCH ×2 (06:28→23:32)
[2021-03-23] MEDS: PANTOPRAZOLE 40MG VIAL (C9113 PER 1) IV SCH (06:28)
[2021-03-23] MEDS: CARVedilol 3.125 MG TAB PO SCH (06:31)
[2021-03-23] MEDS ORDERED: LIDOCAINE 1% SDV 5ML VIAL SC PRN (07:45)
[2021-03-23] MEDS ORDERED: SODIUM CHLORIDE 0.9% 1000ML IV PRN (07:45)
[2021-03-23] MEDS: IPRATROPIUM 0.5MG/ALBUTEROL 2.5MG INH SOL UD 3ML (DUONEB) NEB SCH ×4 (08:07→18:02)
[2021-03-23] MEDS: PERCOCET 5MG/325MG TAB PO PRN (08:15)
[2021-03-23] MEDS: LEVEMIR (INSULIN DETEMIR) 1 UNITS/0.01ML SC SCH ×2 (08:15→23:33)
[2021-03-23] MEDS: HumaLOG INSULIN (NovoLOG) PER UNIT SC SCH ×4 (08:16→23:15)
[2021-03-23] MEDS: NYSTATIN 100,000 UNITS/GM TOPICAL PWD 15 GM TOP SCH (08:18)
[2021-03-23] MEDS: FLUTICASONE PROP 0.05% NASAL SPRAY 16 GM (FLONASE) SCH (08:18)
[2021-03-23 08:19] LABS: BASO % 0.4 % (0.0-1.0); EOS # 0.7 10^3/uL (0.0-0.5); EOS % 8.4 % (0.0-3.0); HEMOGLOBIN 9.3 g/dl (13.5-17.5); LYMPH # 0.4 10^3/uL (1.5-5.0); LYMPH % 4.7 % (24.0-44.0); MEAN CORPUSCULAR HEMOGLOBIN 32.7 pg (27.0-33.0); MEAN CORPUSCULAR VOLUME 105.6 fl (80.0-96.0); MONO # 0.8 10^3/uL (0.0-0.8); MONO % 10.2 % (2.0-8.0); NEUTROPHILS # 5.9 10^3/uL (1.5-8.5); NEUTROPHILS % 75.5 % (36.0-66.0); PLATELET COUNT, AUTOMATED 144 10^3/uL (150-450); RED BLOOD COUNT 2.84 10^6/uL (4.30-6.10); WHITE BLOOD COUNT 7.8 10^3/uL (4.0-10.0)
[2021-03-23 08:52] LABS: ALBUMIN 2.5 GM/DL (3.2-5.2); BILIRUBIN,TOTAL 0.6 MG/DL (0.2-1.0); CALCIUM LEVEL 7.4 MG/DL (8.8-10.2); CREATININE FOR GFR 5.85 MG/DL (0.70-1.30); GLOMERULAR FILTRATION RATE 10.4 (>49); POTASSIUM SERUM 5.3 MEQ/L (3.5-5.1)
[2021-03-23] MEDS: **NOTE PATIENT COMMENT** MISC XX SCH (09:00)
--- NOTE | 2021-03-23 12:35 | IPNPDOC ---
Text Note Date of Service The patient was seen on 03/23/21. NOTE Subjective: Patient was seen and examined during the dialysis session today. We take-out about 2.5 L of fluid. He denies having any fever, chills. He did get about 2 units of PRBC transfused yesterday. He reports having pain in the left leg where he had his surgery. Patient is Objective: General: Patient was seen when he was getting dialysis. He was laying in bed, no apparent distress, morbidly obese. HEENT: Moist mucous membranes, could not examine his neck due to his body habitus. Cardiac: S1 and S2 are heard, regular rate and rhythm, no murmurs appreciated. Lungs: Diminished breath sounds anteriorly as he was getting dialysis. Abdomen: Soft, no tenderness on palpation, positive bowel sounds appreciated. Extremities: Noted 1+ pedal edema on the left leg and was wrapped in following the surgery. No pedal edema appreciated in the right. He does have an right IJ TLC and was left arm fistula which is being used currently for dialysis. Neuro: Patient mentation is at his baseline. Could answer simple questions. Assessment/plan: Mr. Valadez is a 66-year-old male with extensive past medical history ESRD on hemodialysis TTS, A. fib, type 2 diabetes, hypothyroidism, morbid obesity, MARCELA COPD, schizophrenia versus schizoaffective disorder who presented to ED after a fall had a left femoral fracture. End-stage renal disease on hemodialysis: He is on Thursday schedule. He is getting dialyzed today getting getting removed about 2.5 L. -He did get blood transfusion yesterday and his hemoglobin today morning is 9.3 -His electrolytes are otherwise acceptable. Anemia due to acute blood loss (post-op) and ESRD: Patient had a low hemoglobin yesterday and was given 2 units of blood transfusion yesterday. Hemoglobin today morning is 9.3. He is currently on Eliquis orally for anticoagulation. Hypertension: Blood pressure is well controlled with the current medications we will continue the same. Diastolic congestive heart failure which cannot be assessed due to his underlying A. fib, LVEF 45%, right ventricular dilation and pulmonary hypertension. -Volume status is actively managed by his dialysis Recommend removing the right IJ . VS,Fishbone, I+O VS, Fishbone, I+O Laboratory Tests 03/23/21 08:05 Vital Signs Date Time Temp Pulse Resp B/P (MAP) Pulse Ox O2 Delivery O2 Flow Rate FiO2 03/23/21 08:15 17 93 3.0 03/23/21 06:31 86 129/70 03/23/21 06:00 98.3 Nasal Cannula 03/20/21 14:00 35 I&O- Last 24 Hours up to 6 AM 03/23/21 06:00 Intake Total 1280 ml Output Total 0 ml Balance 1280 ml GME ATTESTATION GME ATTESTATION My faculty preceptor for this patient encounter was physically present during the encounter and was fully available. All aspects of the patient interview, examination, medical decision making process, and medical care plan development were reviewed and approved by the faculty preceptor. The faculty preceptor is aware and concurs with the plan as stated in the body of this note and will attest to such by his/her cosignature. Dianne Singleton MD Mar 23, 2021 12:28 KEMI GOLDMAN DO Mar 24, 2021 11:48
[2021-03-23] MEDS: PALIPERIDONE 3 MG ER TAB (INVEGA) PO SCH (17:48)
[2021-03-23] MEDS: DOCUSATE SODIUM 100MG CAPSULE PO SCH (23:32)
[2021-03-23] MEDS: LIDOCAINE 5% (LIDODERM) PATCH TD SCH (23:33)
[2021-03-24] MEDS: ACETAMINOPHEN TAB 650MG DOSE (2X325MG) PO SCH ×3 (05:58→16:50)
[2021-03-24 06:00] VITALS: BP 121/66
[2021-03-24 06:22] LABS: BASO % 0.5 % (0.0-1.0); EOS # 0.8 10^3/uL (0.0-0.5); EOS % 11.9 % (0.0-3.0); HEMATOCRIT 29.7 % (42.0-52.0); LYMPH # 0.5 10^3/uL (1.5-5.0); LYMPH % 7.3 % (24.0-44.0); MEAN CORPUSCULAR HEMOGLOBIN 32.7 pg (27.0-33.0); MEAN CORPUSCULAR HGB CONC 30.3 g/dl (32.0-36.5); MONO # 0.9 10^3/uL (0.0-0.8); MONO % 13.2 % (2.0-8.0); NEUTROPHILS # 4.3 10^3/uL (1.5-8.5); NEUTROPHILS % 66.2 % (36.0-66.0); PLATELET COUNT, AUTOMATED 155 10^3/uL (150-450); RED BLOOD COUNT 2.75 10^6/uL (4.30-6.10); WHITE BLOOD COUNT 6.5 10^3/uL (4.0-10.0)
[2021-03-24 06:44] LABS: ALBUMIN 2.3 GM/DL (3.2-5.2); BILIRUBIN,TOTAL 0.6 MG/DL (0.2-1.0); CALCIUM LEVEL 7.7 MG/DL (8.8-10.2); CREATININE FOR GFR 4.46 MG/DL (0.70-1.30); GLOMERULAR FILTRATION RATE 14.3 (>49); POTASSIUM SERUM 4.6 MEQ/L (3.5-5.1); TOTAL PROTEIN 6.4 GM/DL (6.4-8.2)
[2021-03-24] MEDS: IPRATROPIUM 0.5MG/ALBUTEROL 2.5MG INH SOL UD 3ML (DUONEB) NEB SCH ×4 (06:59→20:34)
[2021-03-24] MEDS: HumaLOG INSULIN (NovoLOG) PER UNIT SC SCH ×4 (07:43→20:37)
--- NOTE | 2021-03-24 08:45 | IPN ---
PROGRESS NOTE DATE: 03/23/2021 SUBJECTIVE: This is a 66-year-old male who presented with left distal femur shaft fracture. The patient underwent operative fixation with left retrograde femur intramedullary nail on 19 of March, which was four days prior. The patient is doing well today; was seen in dialysis, appeared to be comfortable with minimal complaints. OBJECTIVE: The patient had dressings in place that were clean, dry and intact. He was alert and oriented to person, place and time, appeared to be comfortable. He had 5/5 motor strength in EHL, FHL, tibialis anterior, gastrocnemius and peroneal musculature of left lower extremity. He also had sensation intact to light touch to deep and superficial peroneal, sural, saphenous and tibial nerve distributions. The patient otherwise had no complaints and was undergoing dialysis. ASSESSMENT: 66-year-old male with left femur retrograde intramedullary nail placement who is doing well at today's visit. This patient can be weightbearing as tolerated to the left lower extremity at this point in time. However, given his lack of ambulation this will likely not be necessary. However, I do encourage physical therapy to work on the patient's knee range of motion as well as strengthening of the knee and hip. This can be used for transfers and supporting his body weight. PLAN: The patient will follow up in my clinic at [facility] on the or March, for wound check and metallic chichi and suture removal. Of note: I also recommend the patient have either suture or metallic staple removal at the earliest on March, and these can be exchanged for Steri-Strip dressings.
[2021-03-24] MEDS: **NOTE PATIENT COMMENT** MISC XX SCH (09:03)
[2021-03-24] MEDS: PANTOPRAZOLE 40MG VIAL (C9113 PER 1) IV SCH (09:10)
[2021-03-24] MEDS: VENLAFAXINE **XR** 75MG CAPSULE PO SCH (09:11)
[2021-03-24] MEDS: LEVEMIR (INSULIN DETEMIR) 1 UNITS/0.01ML SC SCH ×2 (09:11→21:34)
[2021-03-24] MEDS: TAMSULOSIN 0.4 MG CAP PO SCH (09:11)
[2021-03-24] MEDS: APIXABAN 5 MG TAB (ELIQUIS) PO SCH ×2 (09:11→21:34)
[2021-03-24] MEDS: CARVedilol 3.125 MG TAB PO SCH (09:13)
[2021-03-24] MEDS: PERCOCET 5MG/325MG TAB PO PRN (09:13)
[2021-03-24] MEDS: SENNA 8.6 MG TAB (SENOKOT) PO SCH ×2 (09:13→21:33)
[2021-03-24] MEDS: OXcarbazepine 300 MG TAB PO SCH ×2 (09:13→21:33)
[2021-03-24] MEDS: NYSTATIN 100,000 UNITS/GM TOPICAL PWD 15 GM TOP SCH (09:14)
[2021-03-24] MEDS: FLUTICASONE PROP 0.05% NASAL SPRAY 16 GM (FLONASE) SCH (09:14)
[2021-03-24] MEDS: PALIPERIDONE 3 MG ER TAB (INVEGA) PO SCH (16:50)
--- NOTE | 2021-03-24 20:38 | IPN ---
NEPHROLOGY PROGRESS NOTE DATE: 03/24/2021 SUBJECTIVE: Mr. Valadez is seen this morning at his bedside. He is laying flat in his bed. He denies any dyspnea, chest pain, nausea or vomiting. He remains on chronic oxygen therapy. OBJECTIVE: PHYSICAL EXAMINATION: VITAL SIGNS: Temperature 97.4 degrees Fahrenheit, heart rate 88 per minute and respiratory rate 18 per minute. Blood pressure 128/70 mm of mercury and oxygen saturation is 96% on 3 liters oxygen. HEENT: His head is atraumatic. NECK: Neck veins are impossible to be assessed. HEART: Sounds are distant and irregular. LUNGS: Diminished breath sounds. ABDOMEN: Obese and nontender. Bowel sounds are normal. EXTREMITIES: Without any cyanosis or clubbing. Left upper arm AV fistula is patent. I removed his dressings from the AV fistula site. His left thigh is swollen compared to the right and the surgical incisions are clean and intact. NEUROLOGICAL: The patient is at his baseline mentation. LABORATORY STUDIES: Today's labs show a WBC count of 6.5, hemoglobin 9.0 and hematocrit 29.7, platelet count 155. Sodium 134, potassium 4.6, CO2 27, BUN 33 and creatinine 4.46. PROBLEMS: 1. End-stage renal disease - The patient was dialyzed yesterday and at present there is no emergent need for dialysis today. He will be scheduled for next dialysis as an outpatient on March 26. 2. Hyperkalemia his potassium level has improved and corrected with dialysis. No intervention is needed at present. 3. Congestive heart failure and hypoxemia clinically, his volume status seems well compensated. He has chronic hypoxemia related to obesity associated obstructive sleep apnea and probably some underlying lung disease. The patient remains on 3 liters oxygen and oxygenating well. 4. Anemia - at present the patient's anemia is stable following transfusion. No urgent intervention is needed. 5. Disposition from a renal standpoint, the patient can be discharged and transferred back [facility] [place] [facility]. His next dialysis will be scheduled as an outpatient.
[2021-03-24] MEDS: DOCUSATE SODIUM 100MG CAPSULE PO SCH (21:34)
[2021-03-24] MEDS: LIDOCAINE 5% (LIDODERM) PATCH TD SCH (21:34)
[2021-03-25] MEDS: guaiFENesin ER 600 MG TAB PO SCH ×3 (02:13→21:23)
[2021-03-25] MEDS: BENZONATATE 100MG CAPSULE PO SCH ×3 (05:22→21:22)
[2021-03-25] MEDS: ACETAMINOPHEN TAB 650MG DOSE (2X325MG) PO SCH ×4 (05:22→18:02)
[2021-03-25 06:00] VITALS: BP 121/71
[2021-03-25 06:27] LABS: BASO % 0.3 % (0.0-1.0); EOS # 0.7 10^3/uL (0.0-0.5); EOS % 9.8 % (0.0-3.0); HEMATOCRIT 30.2 % (42.0-52.0); HEMOGLOBIN 9.2 g/dl (13.5-17.5); LYMPH # 0.5 10^3/uL (1.5-5.0); LYMPH % 6.7 % (24.0-44.0); MEAN CORPUSCULAR HEMOGLOBIN 32.7 pg (27.0-33.0); MEAN CORPUSCULAR HGB CONC 30.5 g/dl (32.0-36.5); MEAN CORPUSCULAR VOLUME 107.5 fl (80.0-96.0); MONO # 0.9 10^3/uL (0.0-0.8); MONO % 12.6 % (2.0-8.0); NEUTROPHILS % 69.6 % (36.0-66.0); PLATELET COUNT, AUTOMATED 146 10^3/uL (150-450); RED BLOOD COUNT 2.81 10^6/uL (4.30-6.10); WHITE BLOOD COUNT 7.1 10^3/uL (4.0-10.0)
[2021-03-25 06:54] LABS: ALBUMIN 2.4 GM/DL (3.2-5.2); BILIRUBIN,TOTAL 0.7 MG/DL (0.2-1.0); CALCIUM LEVEL 7.7 MG/DL (8.8-10.2); CREATININE FOR GFR 5.85 MG/DL (0.70-1.30); GLOMERULAR FILTRATION RATE 10.4 (>49); POTASSIUM SERUM 5.8 MEQ/L (3.5-5.1); TOTAL PROTEIN 6.2 GM/DL (6.4-8.2)
[2021-03-25] MEDS: IPRATROPIUM 0.5MG/ALBUTEROL 2.5MG INH SOL UD 3ML (DUONEB) NEB SCH ×4 (07:12→20:41)
[2021-03-25] MEDS: LEVEMIR (INSULIN DETEMIR) 1 UNITS/0.01ML SC SCH ×2 (07:45→21:20)
[2021-03-25] MEDS: HumaLOG INSULIN (NovoLOG) PER UNIT SC SCH ×4 (07:46→21:00)
[2021-03-25] MEDS ORDERED: REMDESIVIR 200 MG in NS 250 ML IV ONE (08:55)
[2021-03-25] MEDS: SENNA 8.6 MG TAB (SENOKOT) PO SCH ×2 (09:00→21:22)
[2021-03-25] MEDS: TAMSULOSIN 0.4 MG CAP PO SCH (09:48)
[2021-03-25] MEDS: PANTOPRAZOLE 40MG VIAL (C9113 PER 1) IV SCH (09:48)
[2021-03-25] MEDS: APIXABAN 5 MG TAB (ELIQUIS) PO SCH ×2 (09:49→21:22)
[2021-03-25] MEDS: **NOTE PATIENT COMMENT** MISC XX SCH (09:49)
[2021-03-25] MEDS: OXcarbazepine 300 MG TAB PO SCH ×2 (09:49→21:21)
[2021-03-25] MEDS: CARVedilol 3.125 MG TAB PO SCH (09:49)
[2021-03-25] MEDS: VENLAFAXINE **XR** 75MG CAPSULE PO SCH (09:49)
[2021-03-25] MEDS: NYSTATIN 100,000 UNITS/GM TOPICAL PWD 15 GM TOP SCH (09:49)
[2021-03-25] MEDS: FLUTICASONE PROP 0.05% NASAL SPRAY 16 GM (FLONASE) SCH (09:49)
[2021-03-25 09:53] LABS: CALCIUM LEVEL 7.9 MG/DL (8.8-10.2); CREATININE FOR GFR 5.89 MG/DL (0.70-1.30); GLOMERULAR FILTRATION RATE 10.3 (>49); POTASSIUM SERUM 6.1 MEQ/L (3.5-5.1)
[2021-03-25] MEDS ORDERED: SOD POLYSTYRENE SULFONATE SUSP 15 GM/60 ML UD PO ONE (10:00)
[2021-03-25] MEDS ORDERED: SODIUM CHLORIDE 0.9% 1000ML IV PRN (10:10)
[2021-03-25] MEDS ORDERED: LIDOCAINE 1% SDV 5ML VIAL SC PRN (10:10)
[2021-03-25] MEDS ORDERED: DARBEPOETIN 200MCG/0.4ML *DIALYSIS* SYRINGE (J0882 PER 1MCG) IV SCH (10:20)
[2021-03-25] MEDS ORDERED: SODIUM CHLORIDE 0.9% INJ 10 ML SYR IV ONE (10:55)
--- NOTE | 2021-03-25 11:00 | IPNPDOC ---
Text Note Date of Service The patient was seen on 03/25/21. NOTE Subjective: Patient was seen at bedside. Patient was in lying position. Was not in any distress. Denies having any complaints. Was curious when he is going home/halfway. Denies having any chest pain, nausea, vomiting. He was supposed to go home today but however given his high potassium levels he would be benefited from getting it session of dialysis today and plan to discharge tomorrow Objective: General: He was lying in bed, no apparent distress. Morbidly obese. HEENT moist mucous membranes. Cardiac: S1 and S2 are heard, regular rate and rhythm, no murmurs appreciated. Lungs: Diminished breath sounds only heard anteriorly given his body habitus. Abdomen: Soft, positive bowel sounds, no tenderness on palpation. Extremities: 1+ pedal edema in the left leg and has an hematoma in his left leg. No pedal edema appreciated on the right. He does have a left arm fistula. Neuro: No focal deficits. Assessment/plan: Mr. Valadez is a 66-year-old male with extensive past medical history ESRD on hemodialysis Thursday schedule, A. fib, type 2 diabetes, hypothyroidism, morbid obesity, MARCELA, COPD, schizophrenia versus major affective disorder who presented to ED after a fall and had a left femoral fracture. Nephrology was consulted given that he was on hemodialysis. End-stage renal disease on hemodialysis: Thursday schedule. He would be getting his dialysis today given that his potassium levels are elevated. Hyperkalemia: Elevation in potassium of 6.1 is likely due to hematoma from fall and surgery Will get a dialysis patient today to remove the potassium. Anemia of chronic diseases: -Patient has a hemoglobin of 9.2 which is acceptable given his ESRD Hypertension: -Continue the current regimen. Diastolic CHF: Echocardiogram done in March 10, 2021. Reports that left ventricular shunt could not be assessed due to his underlying A. fib he does have mild tricuspid regurgitation with moderate pulmonary hypertension. Aortic valve sclerosis with trace aortic regurgitation and moderate stenosis. Moderately dilated left atrium. Mildly dilated ascending aorta at 3.7 cm. Trace of pericardial fluid was noted Disposition: Likely discharge tomorrow to [facility]. VS,Fishbone, I+O VS, Fishbone, I+O Laboratory Tests 03/25/21 05:47 03/25/21 09:05 Vital Signs Date Time Temp Pulse Resp B/P (MAP) Pulse Ox O2 Delivery O2 Flow Rate FiO2 03/25/21 09:49 73 121/71 03/25/21 06:00 97.9 16 90 Nasal Cannula 3.0 03/20/21 14:00 35 I&O- Last 24 Hours up to 6 AM 03/25/21 06:00 Intake Total 1920 ml Output Total 0 ml Balance 1920 ml Dianne Singleton MD Mar 25, 2021 11:00
[2021-03-25] MEDS: PALIPERIDONE 3 MG ER TAB (INVEGA) PO SCH (18:02)
[2021-03-25] MEDS: DOCUSATE SODIUM 100MG CAPSULE PO SCH (21:21)
[2021-03-25] MEDS: LIDOCAINE 5% (LIDODERM) PATCH TD SCH (21:23)
[2021-03-26] MEDS: ACETAMINOPHEN TAB 650MG DOSE (2X325MG) PO SCH ×3 (01:15→11:56)
[2021-03-26 05:42] LABS: BASO % 0.2 % (0.0-1.0); EOS # 0.6 10^3/uL (0.0-0.5); EOS % 7.5 % (0.0-3.0); HEMATOCRIT 29.5 % (42.0-52.0); LYMPH # 0.4 10^3/uL (1.5-5.0); LYMPH % 4.8 % (24.0-44.0); MEAN CORPUSCULAR HEMOGLOBIN 33.1 pg (27.0-33.0); MEAN CORPUSCULAR HGB CONC 30.5 g/dl (32.0-36.5); MEAN CORPUSCULAR VOLUME 108.5 fl (80.0-96.0); MONO # 1.1 10^3/uL (0.0-0.8); MONO % 12.8 % (2.0-8.0); NEUTROPHILS # 6.3 10^3/uL (1.5-8.5); NEUTROPHILS % 74.2 % (36.0-66.0); PLATELET COUNT, AUTOMATED 132 10^3/uL (150-450); RED BLOOD COUNT 2.72 10^6/uL (4.30-6.10); WHITE BLOOD COUNT 8.5 10^3/uL (4.0-10.0)
[2021-03-26] MEDS: BENZONATATE 100MG CAPSULE PO SCH (05:58)
[2021-03-26 06:00] VITALS: BP 127/72
[2021-03-26 06:14] LABS: ALBUMIN 2.4 GM/DL (3.2-5.2); BILIRUBIN,TOTAL 0.7 MG/DL (0.2-1.0); CALCIUM LEVEL 8.1 MG/DL (8.8-10.2); CREATININE FOR GFR 3.93 MG/DL (0.70-1.30); GLOMERULAR FILTRATION RATE 16.5 (>49); POTASSIUM SERUM 4.7 MEQ/L (3.5-5.1); TOTAL PROTEIN 6.3 GM/DL (6.4-8.2)
[2021-03-26] MEDS: IPRATROPIUM 0.5MG/ALBUTEROL 2.5MG INH SOL UD 3ML (DUONEB) NEB SCH (07:51)
[2021-03-26] MEDS: PANTOPRAZOLE 40MG VIAL (C9113 PER 1) IV SCH ×2 (08:00→09:00)
[2021-03-26] MEDS: SENNA 8.6 MG TAB (SENOKOT) PO SCH (08:00)
[2021-03-26] MEDS: VENLAFAXINE **XR** 75MG CAPSULE PO SCH (08:00)
[2021-03-26 08:02] VITALS: BP 127/72
[2021-03-26] MEDS: CARVedilol 3.125 MG TAB PO SCH (08:02)
[2021-03-26] MEDS: TAMSULOSIN 0.4 MG CAP PO SCH (08:02)
[2021-03-26] MEDS: APIXABAN 5 MG TAB (ELIQUIS) PO SCH (08:02)
[2021-03-26] MEDS: guaiFENesin ER 600 MG TAB PO SCH (08:02)
[2021-03-26] MEDS: HumaLOG INSULIN (NovoLOG) PER UNIT SC SCH (08:03)
[2021-03-26] MEDS: OXcarbazepine 300 MG TAB PO SCH (08:03)
[2021-03-26] MEDS: LEVEMIR (INSULIN DETEMIR) 1 UNITS/0.01ML SC SCH (08:03)
[2021-03-26] MEDS: NYSTATIN 100,000 UNITS/GM TOPICAL PWD 15 GM TOP SCH (08:04)
[2021-03-26] MEDS: FLUTICASONE PROP 0.05% NASAL SPRAY 16 GM (FLONASE) SCH (08:04)
[2021-03-26] MEDS: **NOTE PATIENT COMMENT** MISC XX SCH (08:04)
[2021-03-26] MEDS ORDERED: REMDESIVIR 100 MG in NS 250 ML IV SCH (08:55)
[2021-03-26] MEDS ORDERED: SODIUM CHLORIDE 0.9% INJ 10 ML SYR IV SCH (09:55)
--- NOTE | 2021-03-26 11:06 | IPNPDOC ---
Text Note Date of Service The patient was seen on 03/26/21. NOTE Subjective: Patient was seen and examined at bedside. He denies having any complaints. He was hoping he can go home today. He did get a dialysis session yesterday and had about 3.5 L removed. And his potassium is back to normal following the dialysis. He denies having any fever, chills, nausea, vomiting, diarrhea. Objective: General: Patient was laying in bed, no apparent distress. Cardiac: S1 and S2 appreciated, irregular rhythm. No murmurs appreciated. Lungs: Diminished breath sounds in bilateral lower lobes. Upper lobes are clear bilateral breath sounds. No wheezes or crackles appreciated. Abdomen: Soft, obese abdomen is on palpation positive bowel sounds appreciated. Extremities: He does have a Band-Aid on his left leg from the surgery for the fracture. No edema noted. Neurological: Patient is alert oriented x3 Assessment/plan: Mr. Valadez is a 66-year-old male patient with past medical history of ESRD on hemodialysis TTS schedule, A. fib on anticoagulation at home, hypothyroidism, DM type II, morbidly obese, MARCELA, COPD, schizophrenia versus major affective disorder who presented to ED after a fall and having a left femoral fracture. He lives at [facility]. End-stage renal disease on hemodialysis: TTS schedule. He did get dialysis yesterday as his potassium levels were elevated. Today his potassium levels are within normal limits. Hyperkalemia: Resolved after the dialysis. Hypertension: We will continue carvedilol and his blood pressure is well controlled with this. Left ventricular hypertrophy: Patient might have baseline CHF, the echo done on 03/10/2021 could not assess the left ventricular diastolic function due to the underlying A. fib. Given the A. fib he does have moderately dilated left atrium. Moderate pulmonary hypertension mild TR. Anemia of chronic disease: Given his ESRD has a hemoglobin of 9 he had blood transfusions during this admission. His hemoglobin is stable for now we will continue to monitor. Disposition: Patient is cleared to go to [facility] and can continue getting his dialysis outpatient. However we did speak to primary team and he was not cleared by PT. VS,Salvador, I+O VS, Talishae, I+O Laboratory Tests 03/26/21 05:21 Vital Signs Date Time Temp Pulse Resp B/P (MAP) Pulse Ox O2 Delivery O2 Flow Rate FiO2 03/26/21 08:02 90 127/72 03/26/21 06:00 97.1 16 100 Nasal Cannula 3.0 03/20/21 14:00 35 I&O- Last 24 Hours up to 6 AM 03/26/21 06:00 Intake Total 840 ml Output Total 3500 ml Balance -2660 ml Dianne Singleton MD Mar 26, 2021 11:06
--- NOTE | 2021-03-26 14:08 | DS.PDOC ---
Discharge Summary General Date of Admission Mar 09, 2021 at 16:55 Date of Discharge 03/26/2021 Attending Physician: MINOO GROSSMAN DO Specialist/Consultants Involve: Delgado Duron MD Specialist/Consultants Involve Eve Duron DO, nephrology; Jassi New MD, pulmonology/critical care; Robert Wolf DO, pulmonary/critical care; Aramis Loza MD, orthopedic surgery; Uli Matthews MD, orthopedic surgery; Humza Magana MD, cardiology Discharge Summary PROCEDURES PERFORMED DURING STAY: Triple-lumen central line placement, left fe mur retrograde intramedullary nail ADMITTING DIAGNOSES: 1. Acute on chronic hypercapnic respiratory failure with evidence of concomitant metabolic acidosis. 2. Morbid obesity is probable MARCELA/OHS causing chronic hypercapnic respiratory failure on home oxygen 3. Left distal femur fracture status post mechanical fall 4. Atrial fibrillation on Eliquis 5. History of heart failure with reduced EF currently no evidence of decompensation 6. History of ESRD on hemodialysis 7. Shock, undifferentiated 8. Chronic anemia at baseline 9. Pulmonary hypertension likely group 2/3 DISCHARGE DIAGNOSES: 1. Acute on chronic hypercapnic respiratory failure likely secondary to MARCELA/OHS/COPD. 2. Status post acute COPD exacerbation 3. Left distal femur fracture 4. Normocytic anemia 5. Atrial fibrillation 6. Hypertension 7. Troponin elevation 8. ESRD on a Thursday, , Thursday schedule 9. Insulin-dependent diabetes mellitus type 2 10. Status post hyperkalemia 11. Schizophrenia/schizoaffective disorder 12. Dysphagia 13. BPH 14. GERD COMPLICATIONS/CHIEF COMPLAINT: Acute Respiratory Failure With Hypoxia And Hyperca. HISTORY OF PRESENT ILLNESS: Patient is a 66-year-old male with multiple comorbidities presented to the emergency department status post mechanical fall. History is obtained from the chart by the admitting provider. The patient was on his way to dialysis when he had a mechanical fall the dialysis center. He did not receive dialysis. He arrived to the emergency department was initially hemodynamically stable though he was lethargic and hypoxic. Patient was initially placed on CPAP and his ABG showed respiratory acidosis. He was then changed to BiPAP and his repeat ABG showed worsening of his respiratory acidosis. In the emergency department he also became hypotensive was given 1 L normal saline in total. He was then started on Levophed through a right femoral triple-lumen catheter. Additional work-up in the emergency department revealed that patient has a left distal femur fracture. Orthopedics was consulted. Patient currently seen and examined at bedside. Patient has noninvasive ventilation and is arousable to painful stimuli. He does follow simple commands. He is on AVAPS and his tidal volumes are adequate. He is also on low-dose Levophed. HOSPITAL COURSE: Patient was initially placed on BiPAP in order to help with the patient's respiratory acidosis. Patient was also dialyzed which did help with patient's acidosis and fluid overload. Patient did improve his respiratory acidosis to the point where he was able to come off of BiPAP. Patient was downgraded from intensive care status to progressive care unit. Patient was s upposed to receive his orthopedic surgery on 03/13/2021 however, the patient apparently became confused and began refusing the surgery. Patient was in the PACU prior and had begun to receive a few surgery. Patient began acting very bizarre and apparently the patient does have a history of schizophrenia. Initially patient psychiatric meds were not continued due to the patient's lethargy but now the patient was much more alert and oriented, patient had his psychiatric meds started. I did speak with nephrology who knows the patient well as the patient is dialysis dependent who stated that the patient does have a tough time trusting new people and becomes very paranoid and starts refusing things. Patient was also being held n.p.o. prior to the surgery which made the patient very upset as he wanted to eat as he was hungry. Patient refused to speak with me that day and he also refused to speak with psychiatry who was consulted to help with any medical management/capacity. Patient became more agreeable to speak over the coming days however, orthopedic surgery was unable to perform the surgery over that weekend. Patient did have some issues with increased respiratory acidosis as the patient refused to wear his BiPAP at night. I strongly encourage the patient numerous times to make sure he is wearing his BiPAP or he may end up requiring endotracheal intubation if his respiratory acidosis worsens. Patient did wear his BiPAP after this conversation. Patient was brought down to the operating room on 03/19/2021 however, he was unable to be extubated. Critical care was reconsulted to manage the ventilator and the patient was able to be extubated the next day. Patient remained working with physical therapy after his surgery and was deemed ready for discharge on 03/22/2021. Bed and transportation were not available until 03/26/2021. Patient was then discharged from the hospital on 03/26/2021 back to [facility] [place]. DISCHARGE MEDICATIONS: Please see below. ALLERGIES: Please see below. PHYSICAL EXAMINATION ON DISCHARGE: VITAL SIGNS: Please see below. General: Alert and oriented male patient who was laying in bed when I walked in. Patient not appear to be any acute distress. HEENT: Normocephalic, atraumatic, moist mucous membranes. Neck: No lymphadenopathy or thyromegaly Cardiac: Regular rate and rhythm, no murmurs, normal S1, normal S2 Pulm: Clear to auscultation bilaterally. No wheezes, rhonchi, rales Abd: Nondistended, nontender to palpation, normal bowel sounds Ext: 1+ edema in the bilateral lower extremities. Patient does have surgical ba ndages overlying the left lower thigh/left knee LABORATORY DATA: Please see below. IMAGING: Chest x-ray performed on 03/09/2021 is reported to show cardiomegaly as before. No acute infiltrate. CT of the cervical spine performed without contrast on 03/09/2021 is reported to show no fracture or subluxation seen. Degenerative spondylosis. Some motion artifact. CT of the head performed without contrast on 03/09/2021 was reported to show mild vascular calcification generalized volume loss. Otherwise negative. No evidence of skull fracture or intracranial injury. Left hip x-ray performed on 03/09/2021 is reported to show a femoral diaphyseal fracture noted at the edge of the field of view to the left. No evidence of hip or pelvic fracture appreciated. Left femur x-ray performed on 03/09/2021 is reported to show overriding oblique distal femoral diaphyseal fracture. CT angiogram of the chest performed on 03/09/2021 is reported to show no CT evidence of pulmonary thromboembolic disease. Patchy bilateral infiltrates are noted with some degree of atelectasis. There is upper abdominal ascites. The disc at the T5-6 level thoracic spine is abnormal question infectious discitis. CT of the left femur performed on 03/09/2021 was reported to show obliquely oriented comminuted fracture of the distal femoral diaphysis with 9 degrees of rotational deformity and slight override. Chest x-ray performed on 03/10/2021 is reported to show no evidence of acute cardiopulmonary pathology no significant change. Chest x-ray performed on 03/11/2021 is reported to show no focal consolidation or effusion. Chest x-ray performed on 03/11/2021 was reported to show findings consistent with hypertension. Pulmonary venous hypertension without overt congestive heart failure. No evidence of lobar consolidation or pleural effusion. Chest x-ray performed on 03/14/2021 is reported to show cardiomegaly vascular congestion appears stable with no new infiltrates. Modified barium cookie swallow performed on 03/15/2021 was reported to show penetrants and aspiration were seen with nectar consistency barium. All other consistencies of barium the patient was able to successfully swallow without penetration or aspiration. Chest x-ray performed on 03/15/2021 is reported to show stable exam. Guided fluoroscopy performed on 03/19/2021 is reported to show satisfactory open reduction and fixation. Chest x-ray on 03/20/2021 was reported to show lines and tubes appears adequate. Mild atelectasis and/or pneumonitis in the left lung base. Slight improvement in pulmonary vascular congestion. PROGNOSIS: Fair ACTIVITY: As tolerated. DIET: Pured diet with honey thickened liquids, no soup spoons DISCHARGE PLAN: Discharge to [facility] [place] DISPOSITION: [facility]. DISCHARGE INSTRUCTIONS: 1. Follow-up with a provider at [facility]. 2. Continue dialysis on a Thursday, , Thursday schedule ITEMS TO FOLLOWUP ON ON OUTPATIENT: 1. None. DISCHARGE CONDITION: Stable. TIME SPENT ON DISCHARGE: 35 minutes. Vital Signs/I&Os Vital Signs Date Time Temp Pulse Resp B/P (MAP) Pulse Ox O2 Delivery O2 Flow Rate FiO2 03/26/21 10:50 3.0 03/26/21 08:02 90 127/72 03/26/21 06:00 97.1 16 100 Nasal Cannula 03/20/21 14:00 35 I&O- Last 24 Hours up to 6 AM 03/26/21 06:00 Intake Total 840 ml Output Total 3500 ml Balance -2660 ml Laboratory Data Labs 24H Laboratory Tests 2 03/25/21 17:52: Bedside Glucose (Misc Panel) 136H 03/25/21 20:11: Bedside Glucose (Misc Panel) 171H 03/26/21 05:21: Immature Granulocyte % (Auto) 0.5, Neutrophils (%) (Auto) 74.2H, Lymphocytes (%) (Auto) 4.8L, Monocytes (%) (Auto) 12.8H, Eosinophils (%) (Auto) 7.5H, Basophils (%) (Auto) 0.2, Neutrophils # (Auto) 6.3, Lymphocytes # (Auto) 0.4L, Monocytes # (Auto) 1.1H, Eosinophils # (Auto) 0.6H, Basophils # (Auto) 0.0, Nucleated Red Blood Cells % (auto) 0.0, Anion Gap 7L, Glomerular Filtration Rate 16.5L, Calcium Level 8.1L, Magnesium Level 2.0, Total Bilirubin 0.7, Aspartate Amino Transf (AST/SGOT) 16, Alanine Aminotransferase (ALT/SGPT) 11L, Alkaline Toy sphatase 142H, Total Protein 6.3L, Albumin 2.4L, Albumin/Globulin Ratio 0.6 03/26/21 12:04: Bedside Glucose (Misc Panel) 263H CBC/BMP Laboratory Tests 03/26/21 05:21 FSBS Laboratory Tests Test 03/25/21 17:52 03/25/21 20:11 03/26/21 12:04 Range/Units Bedside Glucose (Misc Panel) 136 171 263 80-115 MG/DL Discharge Medications Scheduled Apixaban (Eliquis) 5 Mg Tablet, 5 MG PO BID, (Reported) Aspirin (Aspirin EC) 81 Mg Tab, 81 MG PO DAILY, (Reported) Atorvastatin Calcium (Atorvastatin Calcium) 40 Mg Tab, 40 MG PO QHS, (Reported) Calcium Acetate (Calcium Acetate) 667 Mg Tablet, 1,334 MG PO TID, (Reported) Carvedilol (Carvedilol) 3.125 Mg Tablet, 3.125 MG PO DAILY, (Reported) Docusate Sodium (Colace) 100 Mg Capsule, 200 MG PO QHS, (Reported) Famotidine (Famotidine) 20 Mg Tab, 20 MG PO BID, (Reported) Fluticasone Propionate (Fluticasone Propionate) 16 Gm Marion.susp, 1 SPRAY NA DAILY, (Reported) Insulin Glargine,Hum.rec.anlog (Toulanie Solostdylan) 300 Unit/1 Ml Insuln.pen, 20 UNIT SC DAILY, (Reported) Insulin Human Lispro (Humalog) 100 Unit/1 Ml Vial, 1 DOSE SC ACHS, (Reported) Lidocaine/Prilocaine (Lidocaine-Prilocaine Cream) 2.5%/2.5% Cream..g., 1 DOSE TOP ASDIRECTED, (Reported) Apply dime size to port area. Do not rub in, cover with saran wrap to protect clothing. Nystatin (Nystatin Powder) 15 Gm Powder, 1 APPLIC TOP DAILY, (Reported) APPLY TO ABDOMINAL FOLDS AND GROIN AREA Oxcarbazepine (Oxcarbazepine) 300 Mg Tab, 300 MG PO BID, (Reported) Paliperidone (Invega) 3 Mg Tab, 3 MG PO QPM, (Reported) TAKES AT 1700 Sennosides (Senna) 8.6 Mg Tablet, 8.6 MG PO BID, (Reported) Tamsulosin HCl (Flomax) 0.4 Mg Cap, 0.8 MG PO DAILY, (Reported) Venlafaxine HCl (Venlafaxine HCl ER) 150 Mg Cap.er.24h, 150 MG PO DAILY, (Reported) Scheduled PRN Acetaminophen (Acetaminophen) 500 Mg Tablet, 1,000 MG PO BID PRN for PAIN LEVEL 1-4, (Reported) Albuterol Sulf (Albuterol Sulfate) 2.5 Mg/3 Ml Nebu, 1 VIAL NEB Q2H PRN for SOB/WHEEZING, (Reported) Bisacodyl (Bisacodyl) 10 Mg Supp.rect, 10 MG CO DAILY PRN for CONSTIPATION, (Reported) Glycerin/Propylene Glycol (Artificial Tears Drops) 15 Ml Drops, 1 DROP OU BID PRN for DRY EYES, (Reported) Tramadol HCl (Tramadol HCl) 50 Mg Tablet, 50 MG PO BID PRN for PAIN LEVEL 4-7, (Reported) Allergies Coded Allergies: No Known Allergies (Verified , 10/01/17) MINOO GROSSMAN DO Mar 26, 2021 14:08
== END 2021-03-26 12:30 | DRG 480 ==
LOC: M ED 12:04 → M ED INP 16:55 → ENRESERV 20:28 → M PCU 20:57 → M MSPAV 03-22 14:41
PROVIDERS: ADMIT Internal Medicine Pulmonary Disease; ATTEND Family Medicine
PROC: 5A1D70Z Performance of Urinary Filtration, Intermittent, Less than 6 Hours Per Day (ICD-10-PCS; 2021-03-09)
PROC: 30233N1 Transfusion of Nonautologous Red Blood Cells into Peripheral Vein, Percutaneous Approach (ICD-10-PCS; 2021-03-11)
PROC: 5A1935Z Respiratory Ventilation, Less than 24 Consecutive Hours (ICD-10-PCS; 2021-03-19)
PROC: 0QSC36Z Reposition Left Lower Femur with Intramedullary Internal Fixation Device, Percutaneous Approach (ICD-10-PCS; principal; 2021-03-19 15:30)
PROC: 02HV33Z Insertion of Infusion Device into Superior Vena Cava, Percutaneous Approach (ICD-10-PCS; 2021-03-20)
DX: S72.332A Displaced oblique fracture of shaft of left femur, initial encounter for closed fracture (principal); N18.6 End stage renal disease; J96.21 Acute and chronic respiratory failure with hypoxia; J96.22 Acute and chronic respiratory failure with hypercapnia; E66.2 Morbid (severe) obesity with alveolar hypoventilation; I50.32 Chronic diastolic (congestive) heart failure; R57.9 Shock, unspecified; Z68.43 Body mass index [BMI] 50.0-59.9, adult; E87.2 Acidosis; D62 Acute posthemorrhagic anemia; I13.2 Hypertensive heart and chronic kidney disease with heart failure and with stage 5 chronic kidney disease, or end stage renal disease; I48.91 Unspecified atrial fibrillation; E87.5 Hyperkalemia; E11.65 Type 2 diabetes mellitus with hyperglycemia; E11.22 Type 2 diabetes mellitus with diabetic chronic kidney disease; R74.01 Elevation of levels of liver transaminase levels; N40.0 Benign prostatic hyperplasia without lower urinary tract symptoms; E11.649 Type 2 diabetes mellitus with hypoglycemia without coma; K21.9 Gastro-esophageal reflux disease without esophagitis; R13.10 Dysphagia, unspecified; F20.9 Schizophrenia, unspecified; D63.1 Anemia in chronic kidney disease; I27.20 Pulmonary hypertension, unspecified; Z99.81 Dependence on supplemental oxygen; Z20.822 Contact with and (suspected) exposure to COVID-19; Z79.01 Long term (current) use of anticoagulants; Z79.82 Long term (current) use of aspirin; Z79.4 Long term (current) use of insulin; Z99.3 Dependence on wheelchair; W19.XXXA Unspecified fall, initial encounter; Y92.538 Other ambulatory health services establishments as the place of occurrence of the external cause; Y93.89 Activity, other specified; Y99.8 Other external cause status

== ENCOUNTER → 2021-03-27 | Outpatient (REF) | payer MEDICAID, MEDICARE ==
[~2021-03-27] MED LIST changes: +BACITAB PO; +BISA10SU4 PR; +CORE3.12 PO; +FIDA200TA PO; +FLEEENE12 PR; +GLUC1KIT IM; +LEVO25TA5 PO; +LEVO50TA5 PO; +MIDO5TA PO; +MILK400S19 PO; +MOM30SS2 PO; +NYST1POW9 TOP; +THERTAB52 PO; +TOUJ1.2I SQ; +VITMTA PO
[2021-03-27 11:45] LABS: HEMATOCRIT 28.9 % (42.0-52.0); HEMOGLOBIN 9.1 g/dl (13.5-17.5); MEAN CORPUSCULAR HEMOGLOBIN 32.9 pg (27.0-33.0); MEAN CORPUSCULAR HGB CONC 31.5 g/dl (32.0-36.5); MEAN CORPUSCULAR VOLUME 104.3 fl (80.0-96.0); PLATELET COUNT, AUTOMATED 144 10^3/uL (150-450); RED BLOOD COUNT 2.77 10^6/uL (4.30-6.10); WHITE BLOOD COUNT 12.7 10^3/uL (4.0-10.0)
[2021-03-27 12:19] LABS: CALCIUM LEVEL 8.4 MG/DL (8.8-10.2); CREATININE FOR GFR 5.73 MG/DL (0.70-1.30); GLOMERULAR FILTRATION RATE 10.7 (>49); POTASSIUM SERUM 5.7 MEQ/L (3.5-5.1)
== END ==
PROVIDERS: ATTEND Internal Medicine
DX: I25.10 Atherosclerotic heart disease of native coronary artery without angina pectoris (principal)

== ENCOUNTER → 2021-04-03 | Outpatient (REF) | payer MEDICAID, MEDICARE ==
[2021-04-03 09:58] LABS: HEMATOCRIT 28.8 % (42.0-52.0); HEMOGLOBIN 8.6 g/dl (13.5-17.5); MEAN CORPUSCULAR HEMOGLOBIN 32.2 pg (27.0-33.0); MEAN CORPUSCULAR HGB CONC 29.9 g/dl (32.0-36.5); MEAN CORPUSCULAR VOLUME 107.9 fl (80.0-96.0); PLATELET COUNT, AUTOMATED 143 10^3/uL (150-450); RED BLOOD COUNT 2.67 10^6/uL (4.30-6.10); WHITE BLOOD COUNT 6.5 10^3/uL (4.0-10.0)
[2021-04-03 10:24] LABS: CALCIUM LEVEL 8.6 MG/DL (8.8-10.2); CREATININE FOR GFR 4.05 MG/DL (0.70-1.30); GLOMERULAR FILTRATION RATE 15.9 (>49); POTASSIUM SERUM 3.6 MEQ/L (3.5-5.1)
== END ==
PROVIDERS: ATTEND Internal Medicine
DX: N18.9 Chronic kidney disease, unspecified (principal)

== ENCOUNTER → 2021-04-10 | Outpatient (REF) | payer MEDICARE, MEDICAID ==
[~2021-04-10] MED LIST changes: +ACET32TAB PO; +ATIV1TAB10 PO; +ATRO1OPD SL; +MORP1SOL5 PO; -TOUJ1.2I SQ; +TRAN1DIS4 TOP; +[UNRECOGNIZED DRUG - CODE] TOP
[2021-04-10 10:34] LABS: HEMOGLOBIN 8.5 g/dl (13.5-17.5); MEAN CORPUSCULAR HEMOGLOBIN 33.1 pg (27.0-33.0); MEAN CORPUSCULAR HGB CONC 30.4 g/dl (32.0-36.5); MEAN CORPUSCULAR VOLUME 108.9 fl (80.0-96.0); PLATELET COUNT, AUTOMATED 120 10^3/uL (150-450); RED BLOOD COUNT 2.57 10^6/uL (4.30-6.10); WHITE BLOOD COUNT 8.1 10^3/uL (4.0-10.0)
[2021-04-10 11:02] LABS: CALCIUM LEVEL 8.9 MG/DL (8.8-10.2); CREATININE FOR GFR 3.2 MG/DL (0.70-1.30); GLOMERULAR FILTRATION RATE 20.9 (>49); POTASSIUM SERUM 3.6 MEQ/L (3.5-5.1)
== END ==
PROVIDERS: ATTEND Internal Medicine
DX: N18.9 Chronic kidney disease, unspecified (principal)

== ENCOUNTER → 2021-04-17 | Outpatient (REF) | payer MEDICARE, MEDICAID ==
[~2021-04-17] MED LIST changes: -ACET32TAB PO; -ATIV1TAB10 PO; -ATRO1OPD SL; -MORP1SOL5 PO; +TOUJ1.2I SQ; -TRAN1DIS4 TOP; -[UNRECOGNIZED DRUG - CODE] TOP
== END ==
PROVIDERS: ATTEND Internal Medicine
DX: N18.9 Chronic kidney disease, unspecified (principal); Z53.9 Procedure and treatment not carried out, unspecified reason

== ENCOUNTER → 2021-04-22 | Outpatient (REF) | payer MEDICAID, MEDICARE ==
[2021-04-22 10:12] LABS: HEMATOCRIT 30.9 % (42.0-52.0); HEMOGLOBIN 9.4 g/dl (13.5-17.5); MEAN CORPUSCULAR HEMOGLOBIN 34.2 pg (27.0-33.0); MEAN CORPUSCULAR HGB CONC 30.4 g/dl (32.0-36.5); MEAN CORPUSCULAR VOLUME 112.4 fl (80.0-96.0); PLATELET COUNT, AUTOMATED 128 10^3/uL (150-450); RED BLOOD COUNT 2.75 10^6/uL (4.30-6.10); WHITE BLOOD COUNT 8.6 10^3/uL (4.0-10.0)
[2021-04-22 10:47] LABS: CALCIUM LEVEL 8.9 MG/DL (8.8-10.2); CREATININE FOR GFR 7.42 MG/DL (0.70-1.30); GLOMERULAR FILTRATION RATE 7.9 (>49); POTASSIUM SERUM 5.6 MEQ/L (3.5-5.1)
== END ==
PROVIDERS: ATTEND Internal Medicine
DX: E03.9 Hypothyroidism, unspecified (principal)

== ENCOUNTER 2021-05-08 14:29 | Inpatient (IN) | payer MEDICARE, MEDICAID ==
[~2021-05-08] VITALS: Ht 167.6 cm; Wt 149.7 kg
[~2021-05-08 14:29] MED LIST changes: -BACITAB PO; -CORE3.12 PO; -LEVO25TA5 PO; -MILK400S19 PO; -TOUJ1.2I SQ; -VITMTA PO
[2021-05-08 15:33] LABS: ABG HCO3 30.4 MEQ/L (22.0-26.0); ABG O2 SATURATION 89.1 % (95.0-99.0); ABG PARTIAL PRESSURE CO2 62.1 mmHg (35.0-45.0); ABG PARTIAL PRESSURE O2 66.5 mmHg (75.0-100.0); ABG TOTAL CO2 32.3 MEQ/L (23.0-31.0); ABG pH (ARTERIAL) 7.307 UNITS (7.350-7.450)
[2021-05-08 16:39] LABS: BASO # 0.1 10^3/uL (0.0-0.2); BASO % 0.8 % (0.0-1.0); EOS # 0.7 10^3/uL (0.0-0.5); HEMATOCRIT 28.2 % (42.0-52.0); HEMOGLOBIN 8.4 g/dl (13.5-17.5); LYMPH # 0.7 10^3/uL (1.5-5.0); LYMPH % 11.7 % (24.0-44.0); MEAN CORPUSCULAR HEMOGLOBIN 34.3 pg (27.0-33.0); MEAN CORPUSCULAR HGB CONC 29.8 g/dl (32.0-36.5); MONO # 0.7 10^3/uL (0.0-0.8); MONO % 11.7 % (2.0-8.0); NEUTROPHILS % 64.3 % (36.0-66.0); PLATELET COUNT, AUTOMATED 126 10^3/uL (150-450); RED BLOOD COUNT 2.45 10^6/uL (4.30-6.10); WHITE BLOOD COUNT 6.2 10^3/uL (4.0-10.0)
[2021-05-08 16:42] LABS: MEAN CORPUSCULAR VOLUME 115.1 fl (80.0-96.0)
[2021-05-08 16:51] LABS: INR 1.5; PROTHROMBIN TIME 18.5 SECONDS (12.7-14.5)
[2021-05-08 17:10] LABS: ANISOCYTOSIS 2+
[2021-05-08 17:11] LABS: PLATELET ESTIMATE DECREASED (NORMAL)
[2021-05-08 17:25] LABS: ALBUMIN 2.8 GM/DL (3.2-5.2); BILIRUBIN,DIRECT 0.3 MG/DL (0.0-0.2); BILIRUBIN,TOTAL 0.4 MG/DL (0.2-1.0); CALCIUM LEVEL 8.4 MG/DL (8.8-10.2); CREATININE FOR GFR 4.97 MG/DL (0.70-1.30); GLOMERULAR FILTRATION RATE 12.6 (>49); POTASSIUM SERUM 4.6 MEQ/L (3.5-5.1); THYROID STIMULATING HORMONE 8.3 uIU/ML (0.358-3.740); TOTAL PROTEIN 7.3 GM/DL (6.4-8.2)
[2021-05-08 17:31] LABS: ABG BASE EXCESS 5.6 (-2.0-2.0); ABG HCO3 32.6 MEQ/L (22.0-26.0); ABG O2 SATURATION 95.2 % (95.0-99.0); ABG PARTIAL PRESSURE O2 83.6 mmHg (75.0-100.0); ABG STANDARD HCO3 29.5 MEQ/L (22.0-26.0); ABG TOTAL CO2 34.6 MEQ/L (23.0-31.0); ABG pH (ARTERIAL) 7.331 UNITS (7.350-7.450)
[2021-05-08 17:33] LABS: ABG PARTIAL PRESSURE CO2 63.2 mmHg (35.0-45.0)
[2021-05-08] MEDS ORDERED: GLUCAGON INJ 1MG VIAL SC PRN (18:15)
[2021-05-08] MEDS ORDERED: DEXTROSE 50% 50 ML SYRINGE IV PRN (18:15)
[2021-05-08] MEDS ORDERED: GLUCOSE 4GM CHEW TABLET PO PRN (18:15)
[2021-05-08] MEDS: HumaLOG INSULIN (NovoLOG) PER UNIT SC SCH ×2 (19:53→22:45)
[2021-05-08 20:10] LABS: HEMATOCRIT 27.1 % (42.0-52.0); HEMOGLOBIN 8.1 g/dl (13.5-17.5); MEAN CORPUSCULAR HEMOGLOBIN 34.5 pg (27.0-33.0); MEAN CORPUSCULAR HGB CONC 29.9 g/dl (32.0-36.5); PLATELET COUNT, AUTOMATED 123 10^3/uL (150-450); RED BLOOD COUNT 2.35 10^6/uL (4.30-6.10); WHITE BLOOD COUNT 6.3 10^3/uL (4.0-10.0)
[2021-05-08] MEDS ORDERED: ELIQ5TAB PO (20:10)
[2021-05-08] MEDS ORDERED: ACET-683 PO (20:10)
[2021-05-08 20:12] LABS: MEAN CORPUSCULAR VOLUME 115.3 fl (80.0-96.0)
[2021-05-08] MEDS ORDERED: LEVO25TA5 PO (20:23)
[2021-05-08] MEDS ORDERED: TOUJ1.2I SQ (20:23)
[2021-05-08] MEDS ORDERED: FLEEENE12 PR (20:23)
[2021-05-08] MEDS ORDERED: VITMTA PO (20:23)
[2021-05-08] MEDS ORDERED: MILK400S19 PO (20:23)
[2021-05-08] MEDS ORDERED: CORE3.12 PO (20:23)
[2021-05-08] MEDS ORDERED: ATOR40TA75 PO (20:23)
[2021-05-08] MEDS ORDERED: MIDO5TA PO (20:23)
[2021-05-08] MEDS ORDERED: BACITAB PO (20:23)
[2021-05-08] MEDS ORDERED: CALC667T2 PO (20:23)
[2021-05-08] MEDS ORDERED: HOME MED LIST COMPLETE! XX SCH ×2 (20:25→20:30)
[2021-05-08] MEDS ORDERED: LIDO1CRE42 TOP (20:30)
[2021-05-08 20:55] LABS: FREE T4 0.57 NG/DL (0.76-1.46)
[2021-05-08 21:40] VITALS: BP 107/70
[2021-05-08 22:00] VITALS: BP 100/57; O2SAT 96
[2021-05-08 22:46] LABS: ABG BASE EXCESS 4.9 (-2.0-2.0); ABG HCO3 32.3 MEQ/L (22.0-26.0); ABG O2 SATURATION 91.4 % (95.0-99.0); ABG PARTIAL PRESSURE O2 68.7 mmHg (75.0-100.0); ABG STANDARD HCO3 28.8 MEQ/L (22.0-26.0); ABG TOTAL CO2 34.3 MEQ/L (23.0-31.0); ABG pH (ARTERIAL) 7.309 UNITS (7.350-7.450)
[2021-05-08 22:47] LABS: ABG PARTIAL PRESSURE CO2 65.8 mmHg (35.0-45.0)
[2021-05-08 23:00] VITALS: O2SAT 95
[2021-05-09] VITALS (34 sets, daily range): BP systolic 94–167; BP diastolic 54–88; O2SAT 92–100
[2021-05-09 00:17] LABS: HEMATOCRIT 27.9 % (42.0-52.0); HEMOGLOBIN 8.3 g/dl (13.5-17.5); MEAN CORPUSCULAR HEMOGLOBIN 34.2 pg (27.0-33.0); MEAN CORPUSCULAR HGB CONC 29.7 g/dl (32.0-36.5); PLATELET COUNT, AUTOMATED 122 10^3/uL (150-450); RED BLOOD COUNT 2.43 10^6/uL (4.30-6.10); WHITE BLOOD COUNT 5.5 10^3/uL (4.0-10.0)
[2021-05-09 00:21] LABS: MEAN CORPUSCULAR VOLUME 114.8 fl (80.0-96.0)
[2021-05-09 05:53] LABS: ABG STANDARD HCO3 29.7 MEQ/L (22.0-26.0)
[2021-05-09 05:56] LABS: ABG BASE EXCESS 5.7 (-2.0-2.0); ABG HCO3 33.7 MEQ/L (22.0-26.0); ABG O2 SATURATION 98.7 % (95.0-99.0); ABG PARTIAL PRESSURE O2 147.9 mmHg (75.0-100.0); ABG TOTAL CO2 35.8 MEQ/L (23.0-31.0); ABG pH (ARTERIAL) 7.298 UNITS (7.350-7.450)
[2021-05-09 05:57] LABS: HEMATOCRIT 30.4 % (42.0-52.0); HEMOGLOBIN 8.9 g/dl (13.5-17.5); MEAN CORPUSCULAR HGB CONC 29.3 g/dl (32.0-36.5); PLATELET COUNT, AUTOMATED 133 10^3/uL (150-450); RED BLOOD COUNT 2.62 10^6/uL (4.30-6.10); WHITE BLOOD COUNT 5.7 10^3/uL (4.0-10.0)
[2021-05-09 05:57] LABS: ABG PARTIAL PRESSURE CO2 70.3 mmHg (35.0-45.0)
[2021-05-09 06:18] LABS: CALCIUM LEVEL 8.7 MG/DL (8.8-10.2); CREATININE FOR GFR 5.57 MG/DL (0.70-1.30); POTASSIUM SERUM 4.9 MEQ/L (3.5-5.1)
[2021-05-09] MEDS: EMLA CREAM 5GM TUBE (LIDOCAINE/PRILOCAINE) TOP SCH (07:00)
[2021-05-09] MEDS ORDERED: FLEET ENEMA PR PRN (07:05)
[2021-05-09] MEDS ORDERED: traMADol 50 MG TAB PO PRN (07:05)
[2021-05-09] MEDS ORDERED: BISACODYL 10 MG SUPP PR PRN (07:05)
[2021-05-09] MEDS ORDERED: EMLA CREAM 5GM TUBE (LIDOCAINE/PRILOCAINE) TOP SCH (07:05)
[2021-05-09] MEDS ORDERED: MOM 30ML SUSPENSION UDC PO PRN (07:05)
[2021-05-09] MEDS: HumaLOG INSULIN (NovoLOG) PER UNIT SC SCH ×4 (07:30→21:00)
[2021-05-09 07:39] LABS: ABG BASE EXCESS 5.9 (-2.0-2.0); ABG HCO3 33.3 MEQ/L (22.0-26.0); ABG O2 SATURATION 97.4 % (95.0-99.0); ABG PARTIAL PRESSURE O2 108.6 mmHg (75.0-100.0); ABG STANDARD HCO3 29.9 MEQ/L (22.0-26.0); ABG TOTAL CO2 35.4 MEQ/L (23.0-31.0); ABG pH (ARTERIAL) 7.324 UNITS (7.350-7.450)
[2021-05-09 07:42] LABS: ABG PARTIAL PRESSURE CO2 65.6 mmHg (35.0-45.0)
[2021-05-09] MEDS ORDERED: SODIUM CHLORIDE 0.9% 1000ML IV PRN (07:45)
[2021-05-09] MEDS ORDERED: LIDOCAINE 1% SDV 5ML VIAL SC PRN (07:45)
[2021-05-09] MEDS ORDERED: MIDODRINE 5 MG TAB PO SCH (08:00)
[2021-05-09] MEDS: LACTOBACILLUS ACIDOPHILUS CAP (BACID) PO SCH ×2 (08:00→17:10)
[2021-05-09] MEDS: CALCIUM ACETATE 667MG GELCAP PO SCH ×3 (08:00→17:09)
[2021-05-09] MEDS: OXcarbazepine 300 MG TAB PO SCH ×2 (09:00→20:21)
[2021-05-09] MEDS: SENNA 8.6 MG TAB (SENOKOT) PO SCH ×2 (09:00→20:21)
[2021-05-09] MEDS ORDERED: PILL CUTTER 1 EACH XX PRN (09:20)
[2021-05-09] MEDS: LEVOTHYROXINE 50MCG TABLET (0.05MG) PO SCH (12:11)
[2021-05-09] MEDS: NYSTATIN 100,000 UNITS/GM TOPICAL PWD 15 GM TOP SCH (13:11)
[2021-05-09] MEDS: VENLAFAXINE **XR** 75MG CAPSULE PO SCH (13:11)
[2021-05-09] MEDS: CARVedilol 3.125 MG TAB PO SCH (13:12)
[2021-05-09] MEDS: TAMSULOSIN 0.4 MG CAP PO SCH (13:12)
[2021-05-09] MEDS: MULTIVITAMINS/MINERALS THERAP 1 TAB PO SCH (13:13)
[2021-05-09 13:20] LABS: HEMATOCRIT 30.5 % (42.0-52.0); MEAN CORPUSCULAR HEMOGLOBIN 34.2 pg (27.0-33.0); MEAN CORPUSCULAR HGB CONC 29.5 g/dl (32.0-36.5); PLATELET COUNT, AUTOMATED 110 10^3/uL (150-450); RED BLOOD COUNT 2.63 10^6/uL (4.30-6.10); WHITE BLOOD COUNT 6.2 10^3/uL (4.0-10.0)
[2021-05-09 15:40] LABS: MAGNESIUM LEVEL 2.1 MG/DL (1.7-2.2)
[2021-05-09] MEDS: MIDODRINE 5 MG TAB PO SCH (16:00)
[2021-05-09] MEDS: FAMOTIDINE 20 MG TAB PO SCH (17:09)
[2021-05-09 18:37] LABS: HEMATOCRIT 28.2 % (42.0-52.0); HEMOGLOBIN 8.4 g/dl (13.5-17.5); MEAN CORPUSCULAR HEMOGLOBIN 34.3 pg (27.0-33.0); MEAN CORPUSCULAR HGB CONC 29.8 g/dl (32.0-36.5); PLATELET COUNT, AUTOMATED 126 10^3/uL (150-450); RED BLOOD COUNT 2.45 10^6/uL (4.30-6.10); WHITE BLOOD COUNT 7.3 10^3/uL (4.0-10.0)
[2021-05-09 18:39] LABS: MEAN CORPUSCULAR VOLUME 115.1 fl (80.0-96.0)
[2021-05-09] MEDS: DOCUSATE SODIUM 100MG CAPSULE PO SCH (20:21)
[2021-05-09] MEDS: PALIPERIDONE 3 MG ER TAB (INVEGA) PO SCH (20:21)
[2021-05-09] MEDS: ATORVASTATIN 20 MG TAB PO SCH (20:21)
[2021-05-09] MEDS: LEVEMIR (INSULIN DETEMIR) 1 UNITS/0.01ML SC SCH (21:25)
[2021-05-10] VITALS (14 sets, daily range): BP systolic 90–133; BP diastolic 56–78; O2SAT 88–98
[2021-05-10 00:25] LABS: HEMATOCRIT 27.5 % (42.0-52.0); HEMOGLOBIN 8.1 g/dl (13.5-17.5); MEAN CORPUSCULAR HEMOGLOBIN 34.3 pg (27.0-33.0); MEAN CORPUSCULAR HGB CONC 29.5 g/dl (32.0-36.5); PLATELET COUNT, AUTOMATED 108 10^3/uL (150-450); RED BLOOD COUNT 2.36 10^6/uL (4.30-6.10); WHITE BLOOD COUNT 6.1 10^3/uL (4.0-10.0)
[2021-05-10 00:26] LABS: MEAN CORPUSCULAR VOLUME 116.5 fl (80.0-96.0)
[2021-05-10 04:14] LABS: HEMATOCRIT 27.8 % (42.0-52.0); HEMOGLOBIN 8.3 g/dl (13.5-17.5); MEAN CORPUSCULAR HGB CONC 29.9 g/dl (32.0-36.5); MEAN CORPUSCULAR VOLUME 113.9 fl (80.0-96.0); PLATELET COUNT, AUTOMATED 104 10^3/uL (150-450); RED BLOOD COUNT 2.44 10^6/uL (4.30-6.10); WHITE BLOOD COUNT 5.5 10^3/uL (4.0-10.0)
[2021-05-10 04:36] LABS: CALCIUM LEVEL 8.3 MG/DL (8.8-10.2); CREATININE FOR GFR 4.14 MG/DL (0.70-1.30); GLOMERULAR FILTRATION RATE 15.5 (>49); POTASSIUM SERUM 4.2 MEQ/L (3.5-5.1)
[2021-05-10] MEDS: LEVOTHYROXINE 50MCG TABLET (0.05MG) PO SCH (05:11)
[2021-05-10] MEDS: HumaLOG INSULIN (NovoLOG) PER UNIT SC SCH ×4 (07:30→22:43)
[2021-05-10] MEDS: LACTOBACILLUS ACIDOPHILUS CAP (BACID) PO SCH ×2 (09:45→17:19)
[2021-05-10] MEDS: SENNA 8.6 MG TAB (SENOKOT) PO SCH ×2 (09:46→22:45)
[2021-05-10] MEDS: MIDODRINE 5 MG TAB PO SCH ×3 (09:46→17:19)
[2021-05-10] MEDS: CALCIUM ACETATE 667MG GELCAP PO SCH ×3 (09:47→22:53)
[2021-05-10] MEDS: TAMSULOSIN 0.4 MG CAP PO SCH (09:47)
[2021-05-10] MEDS: CARVedilol 3.125 MG TAB PO SCH (09:48)
[2021-05-10] MEDS: VENLAFAXINE **XR** 75MG CAPSULE PO SCH (09:49)
[2021-05-10] MEDS: NYSTATIN 100,000 UNITS/GM TOPICAL PWD 15 GM TOP SCH (09:50)
[2021-05-10] MEDS: MULTIVITAMINS/MINERALS THERAP 1 TAB PO SCH (09:50)
[2021-05-10] MEDS: OXcarbazepine 300 MG TAB PO SCH ×2 (09:50→22:45)
[2021-05-10 12:41] LABS: HEMATOCRIT 27.4 % (42.0-52.0); HEMOGLOBIN 8.3 g/dl (13.5-17.5); MEAN CORPUSCULAR HEMOGLOBIN 34.4 pg (27.0-33.0); MEAN CORPUSCULAR HGB CONC 30.3 g/dl (32.0-36.5); MEAN CORPUSCULAR VOLUME 113.7 fl (80.0-96.0); PLATELET COUNT, AUTOMATED 106 10^3/uL (150-450); RED BLOOD COUNT 2.41 10^6/uL (4.30-6.10); WHITE BLOOD COUNT 5.7 10^3/uL (4.0-10.0)
[2021-05-10] MEDS: FAMOTIDINE 20 MG TAB PO SCH (17:19)
[2021-05-10 21:47] LABS: MAGNESIUM LEVEL 1.9 MG/DL (1.7-2.2)
[2021-05-10] MEDS: LEVEMIR (INSULIN DETEMIR) 1 UNITS/0.01ML SC SCH (22:43)
[2021-05-10] MEDS: ATORVASTATIN 20 MG TAB PO SCH (22:44)
[2021-05-10] MEDS: DOCUSATE SODIUM 100MG CAPSULE PO SCH (22:44)
[2021-05-10] MEDS: APIXABAN 5 MG TAB (ELIQUIS) PO SCH (22:44)
[2021-05-10] MEDS: PALIPERIDONE 3 MG ER TAB (INVEGA) PO SCH (22:45)
[2021-05-11] VITALS (13 sets, daily range): BP systolic 97–152; BP diastolic 59–78; O2SAT 88–99
[2021-05-11] MEDS: LEVOTHYROXINE 50MCG TABLET (0.05MG) PO SCH (05:41)
[2021-05-11 06:42] LABS: ABG BASE EXCESS 2.9 (-2.0-2.0); ABG HCO3 29.4 MEQ/L (22.0-26.0); ABG O2 SATURATION 90.3 % (95.0-99.0); ABG PARTIAL PRESSURE CO2 55.3 mmHg (35.0-45.0); ABG PARTIAL PRESSURE O2 64.5 mmHg (75.0-100.0); ABG STANDARD HCO3 26.9 MEQ/L (22.0-26.0); ABG TOTAL CO2 31.1 MEQ/L (23.0-31.0); ABG pH (ARTERIAL) 7.343 UNITS (7.350-7.450)
[2021-05-11] MEDS: TAMSULOSIN 0.4 MG CAP PO SCH (07:30)
[2021-05-11] MEDS: SENNA 8.6 MG TAB (SENOKOT) PO SCH ×2 (07:30→19:51)
[2021-05-11] MEDS: LACTOBACILLUS ACIDOPHILUS CAP (BACID) PO SCH ×2 (07:30→17:07)
[2021-05-11] MEDS: VENLAFAXINE **XR** 75MG CAPSULE PO SCH (07:30)
[2021-05-11] MEDS: HumaLOG INSULIN (NovoLOG) PER UNIT SC SCH ×4 (07:30→19:44)
[2021-05-11] MEDS: CALCIUM ACETATE 667MG GELCAP PO SCH ×3 (07:30→17:07)
[2021-05-11] MEDS: CARVedilol 3.125 MG TAB PO SCH (07:31)
[2021-05-11] MEDS: APIXABAN 5 MG TAB (ELIQUIS) PO SCH ×2 (07:31→19:52)
[2021-05-11] MEDS: MULTIVITAMINS/MINERALS THERAP 1 TAB PO SCH (07:31)
[2021-05-11] MEDS: MIDODRINE 5 MG TAB PO SCH ×3 (07:31→15:27)
[2021-05-11] MEDS: OXcarbazepine 300 MG TAB PO SCH ×2 (07:32→19:51)
[2021-05-11] MEDS: NYSTATIN 100,000 UNITS/GM TOPICAL PWD 15 GM TOP SCH (07:33)
[2021-05-11] MEDS ORDERED: LIDOCAINE 1% SDV 5ML VIAL SC PRN (08:15)
[2021-05-11] MEDS ORDERED: SODIUM CHLORIDE 0.9% 1000ML IV PRN (08:15)
[2021-05-11] MEDS: EMLA CREAM 5GM TUBE (LIDOCAINE/PRILOCAINE) TOP SCH (08:41)
[2021-05-11] MEDS: DARBEPOETIN 200MCG/0.4ML *DIALYSIS* SYRINGE (J0882 PER 1MCG) IV SCH (09:12)
[2021-05-11 10:10] LABS: CALCIUM LEVEL 8.2 MG/DL (8.8-10.2); CREATININE FOR GFR 4.75 MG/DL (0.70-1.30); GLOMERULAR FILTRATION RATE 13.3 (>49); POTASSIUM SERUM 3.9 MEQ/L (3.5-5.1)
[2021-05-11] MEDS: FAMOTIDINE 20 MG TAB PO SCH (17:08)
[2021-05-11 19:07] LABS: MAGNESIUM LEVEL 1.8 MG/DL (1.7-2.2)
[2021-05-11] MEDS: LEVEMIR (INSULIN DETEMIR) 1 UNITS/0.01ML SC SCH (19:51)
[2021-05-11] MEDS: ATORVASTATIN 20 MG TAB PO SCH (19:52)
[2021-05-11] MEDS: DOCUSATE SODIUM 100MG CAPSULE PO SCH (19:52)
[2021-05-11] MEDS: PALIPERIDONE 3 MG ER TAB (INVEGA) PO SCH (19:52)
[2021-05-12 06:00] VITALS: BP 134/77
[2021-05-12] MEDS: LEVOTHYROXINE 50MCG TABLET (0.05MG) PO SCH (06:16)
[2021-05-12 07:28] LABS: CALCIUM LEVEL 8.5 MG/DL (8.8-10.2); CREATININE FOR GFR 4.09 MG/DL (0.70-1.30); GLOMERULAR FILTRATION RATE 15.8 (>49); POTASSIUM SERUM 4.3 MEQ/L (3.5-5.1)
[2021-05-12 07:29] LABS: HEMATOCRIT 29.1 % (42.0-52.0); HEMOGLOBIN 8.7 g/dl (13.5-17.5); MEAN CORPUSCULAR HEMOGLOBIN 34.4 pg (27.0-33.0); MEAN CORPUSCULAR HGB CONC 29.9 g/dl (32.0-36.5); PLATELET COUNT, AUTOMATED 109 10^3/uL (150-450); RED BLOOD COUNT 2.53 10^6/uL (4.30-6.10); WHITE BLOOD COUNT 6.3 10^3/uL (4.0-10.0)
[2021-05-12] MEDS: HumaLOG INSULIN (NovoLOG) PER UNIT SC SCH ×4 (08:42→22:09)
[2021-05-12] MEDS: SENNA 8.6 MG TAB (SENOKOT) PO SCH ×2 (08:43→22:12)
[2021-05-12] MEDS: LACTOBACILLUS ACIDOPHILUS CAP (BACID) PO SCH ×2 (08:43→17:17)
[2021-05-12] MEDS: MIDODRINE 5 MG TAB PO SCH ×3 (08:43→17:17)
[2021-05-12] MEDS: TAMSULOSIN 0.4 MG CAP PO SCH (08:43)
[2021-05-12] MEDS: CARVedilol 3.125 MG TAB PO SCH (08:44)
[2021-05-12] MEDS: VENLAFAXINE **XR** 75MG CAPSULE PO SCH (08:44)
[2021-05-12] MEDS: APIXABAN 5 MG TAB (ELIQUIS) PO SCH ×2 (08:44→22:12)
[2021-05-12] MEDS: MULTIVITAMINS/MINERALS THERAP 1 TAB PO SCH (08:44)
[2021-05-12] MEDS: CALCIUM ACETATE 667MG GELCAP PO SCH ×3 (08:52→17:17)
[2021-05-12] MEDS: OXcarbazepine 300 MG TAB PO SCH ×2 (08:52→22:12)
[2021-05-12] MEDS: NYSTATIN 100,000 UNITS/GM TOPICAL PWD 15 GM TOP SCH (12:09)
[2021-05-12 16:15] LABS: MAGNESIUM LEVEL 1.8 MG/DL (1.7-2.2)
[2021-05-12] MEDS: FAMOTIDINE 20 MG TAB PO SCH (17:17)
[2021-05-12 21:00] VITALS: BP 125/77
[2021-05-12] MEDS: DOCUSATE SODIUM 100MG CAPSULE PO SCH (22:11)
[2021-05-12] MEDS: LEVEMIR (INSULIN DETEMIR) 1 UNITS/0.01ML SC SCH (22:11)
[2021-05-12] MEDS: PALIPERIDONE 3 MG ER TAB (INVEGA) PO SCH (22:12)
[2021-05-12] MEDS: ATORVASTATIN 20 MG TAB PO SCH (22:12)
[2021-05-13 04:56] LABS: HEMATOCRIT 29.1 % (42.0-52.0); HEMOGLOBIN 8.6 g/dl (13.5-17.5); MEAN CORPUSCULAR HEMOGLOBIN 33.9 pg (27.0-33.0); MEAN CORPUSCULAR HGB CONC 29.6 g/dl (32.0-36.5); PLATELET COUNT, AUTOMATED 111 10^3/uL (150-450); RED BLOOD COUNT 2.54 10^6/uL (4.30-6.10)
[2021-05-13 05:05] LABS: CALCIUM LEVEL 8.5 MG/DL (8.8-10.2); CREATININE FOR GFR 5.37 MG/DL (0.70-1.30); GLOMERULAR FILTRATION RATE 11.5 (>49); POTASSIUM SERUM 4.7 MEQ/L (3.5-5.1)
[2021-05-13 05:08] LABS: MEAN CORPUSCULAR VOLUME 114.6 fl (80.0-96.0)
[2021-05-13 06:00] VITALS: BP 124/77
[2021-05-13] MEDS: LEVOTHYROXINE 50MCG TABLET (0.05MG) PO SCH (06:16)
[2021-05-13] MEDS: LACTOBACILLUS ACIDOPHILUS CAP (BACID) PO SCH ×2 (07:55→17:09)
[2021-05-13] MEDS: HumaLOG INSULIN (NovoLOG) PER UNIT SC SCH ×4 (07:55→21:00)
[2021-05-13] MEDS: CALCIUM ACETATE 667MG GELCAP PO SCH ×3 (07:56→17:09)
[2021-05-13] MEDS: MIDODRINE 5 MG TAB PO SCH ×3 (07:59→17:09)
[2021-05-13] MEDS: CARVedilol 3.125 MG TAB PO SCH (09:00)
[2021-05-13] MEDS: SENNA 8.6 MG TAB (SENOKOT) PO SCH ×2 (09:00→22:25)
[2021-05-13 10:57] LABS: ABG BASE EXCESS 4.6 (-2.0-2.0); ABG HCO3 28.9 MEQ/L (22.0-26.0); ABG O2 SATURATION 98.8 % (95.0-99.0); ABG PARTIAL PRESSURE CO2 41.5 mmHg (35.0-45.0); ABG PARTIAL PRESSURE O2 138.1 mmHg (75.0-100.0); ABG STANDARD HCO3 28.7 MEQ/L (22.0-26.0); ABG TOTAL CO2 30.1 MEQ/L (23.0-31.0)
[2021-05-13] MEDS: VENLAFAXINE **XR** 75MG CAPSULE PO SCH (11:56)
[2021-05-13] MEDS: TAMSULOSIN 0.4 MG CAP PO SCH (11:56)
[2021-05-13] MEDS: MULTIVITAMINS/MINERALS THERAP 1 TAB PO SCH (11:56)
[2021-05-13] MEDS: APIXABAN 5 MG TAB (ELIQUIS) PO SCH ×2 (11:56→22:24)
[2021-05-13] MEDS: NYSTATIN 100,000 UNITS/GM TOPICAL PWD 15 GM TOP SCH (11:57)
[2021-05-13] MEDS: OXcarbazepine 300 MG TAB PO SCH ×2 (11:57→22:26)
[2021-05-13] MEDS: FAMOTIDINE 20 MG TAB PO SCH (17:09)
[2021-05-13 19:33] LABS: MAGNESIUM LEVEL 1.9 MG/DL (1.7-2.2)
[2021-05-13] MEDS: LEVEMIR (INSULIN DETEMIR) 1 UNITS/0.01ML SC SCH (22:23)
[2021-05-13] MEDS: PALIPERIDONE 3 MG ER TAB (INVEGA) PO SCH (22:26)
[2021-05-13] MEDS: DOCUSATE SODIUM 100MG CAPSULE PO SCH (22:26)
[2021-05-13] MEDS: ATORVASTATIN 20 MG TAB PO SCH (22:26)
[2021-05-14] MEDS: ACETAMINOPHEN TAB 650MG DOSE (2X325MG) PO PRN ×2 (01:20→20:58)
[2021-05-14] MEDS ORDERED: BENZONATATE 100MG CAPSULE PO ONE (04:00)
[2021-05-14] MEDS: MULTIVITAMINS/MINERALS THERAP 1 TAB PO SCH (05:48)
[2021-05-14] MEDS: LEVOTHYROXINE 50MCG TABLET (0.05MG) PO SCH (05:48)
[2021-05-14] MEDS: SENNA 8.6 MG TAB (SENOKOT) PO SCH ×2 (05:48→20:56)
[2021-05-14] MEDS: TAMSULOSIN 0.4 MG CAP PO SCH (05:48)
[2021-05-14] MEDS: OXcarbazepine 300 MG TAB PO SCH ×2 (05:49→20:57)
[2021-05-14] MEDS: LACTOBACILLUS ACIDOPHILUS CAP (BACID) PO SCH ×2 (05:49→17:47)
[2021-05-14] MEDS: VENLAFAXINE **XR** 75MG CAPSULE PO SCH (05:49)
[2021-05-14] MEDS: APIXABAN 5 MG TAB (ELIQUIS) PO SCH ×2 (05:49→20:56)
[2021-05-14] MEDS: CARVedilol 3.125 MG TAB PO SCH (05:50)
[2021-05-14 06:00] VITALS: BP 136/72
[2021-05-14] MEDS ORDERED: SODIUM CHLORIDE 0.9% 1000ML IV PRN (08:00)
[2021-05-14] MEDS ORDERED: LIDOCAINE 1% SDV 5ML VIAL SC PRN (08:00)
[2021-05-14] MEDS: CALCIUM ACETATE 667MG GELCAP PO SCH ×3 (08:03→17:47)
[2021-05-14] MEDS: HumaLOG INSULIN (NovoLOG) PER UNIT SC SCH ×4 (08:03→20:58)
[2021-05-14] MEDS: MIDODRINE 5 MG TAB PO SCH ×3 (08:03→17:48)
[2021-05-14] MEDS: NYSTATIN 100,000 UNITS/GM TOPICAL PWD 15 GM TOP SCH (08:04)
[2021-05-14] MEDS: EMLA CREAM 5GM TUBE (LIDOCAINE/PRILOCAINE) TOP SCH (08:04)
[2021-05-14 09:24] LABS: CALCIUM LEVEL 8.9 MG/DL (8.8-10.2); CREATININE FOR GFR 6.42 MG/DL (0.70-1.30); GLOMERULAR FILTRATION RATE 9.4 (>49); POTASSIUM SERUM 5.1 MEQ/L (3.5-5.1)
[2021-05-14 17:47] LABS: MAGNESIUM LEVEL 1.9 MG/DL (1.7-2.2)
[2021-05-14] MEDS: FAMOTIDINE 20 MG TAB PO SCH (17:48)
[2021-05-14] MEDS: PALIPERIDONE 3 MG ER TAB (INVEGA) PO SCH (20:56)
[2021-05-14] MEDS: DOCUSATE SODIUM 100MG CAPSULE PO SCH (20:56)
[2021-05-14] MEDS: ATORVASTATIN 20 MG TAB PO SCH (20:57)
[2021-05-14] MEDS: LEVEMIR (INSULIN DETEMIR) 1 UNITS/0.01ML SC SCH (21:09)
[2021-05-15] MEDS: LEVOTHYROXINE 50MCG TABLET (0.05MG) PO SCH (05:33)
[2021-05-15 06:00] VITALS: BP 122/68
[2021-05-15 06:46] LABS: CALCIUM LEVEL 9.1 MG/DL (8.8-10.2); CREATININE FOR GFR 4.33 MG/DL (0.70-1.30); GLOMERULAR FILTRATION RATE 14.8 (>49); POTASSIUM SERUM 4.6 MEQ/L (3.5-5.1)
[2021-05-15] MEDS: MIDODRINE 5 MG TAB PO SCH ×3 (08:00→16:00)
[2021-05-15] MEDS: APIXABAN 5 MG TAB (ELIQUIS) PO SCH ×2 (09:12→20:45)
[2021-05-15] MEDS: MULTIVITAMINS/MINERALS THERAP 1 TAB PO SCH (09:12)
[2021-05-15] MEDS: LACTOBACILLUS ACIDOPHILUS CAP (BACID) PO SCH ×2 (09:12→18:15)
[2021-05-15] MEDS: CALCIUM ACETATE 667MG GELCAP PO SCH ×3 (09:12→18:14)
[2021-05-15] MEDS: VENLAFAXINE **XR** 75MG CAPSULE PO SCH (09:12)
[2021-05-15] MEDS: HumaLOG INSULIN (NovoLOG) PER UNIT SC SCH ×4 (09:12→20:46)
[2021-05-15] MEDS: TAMSULOSIN 0.4 MG CAP PO SCH (09:12)
[2021-05-15] MEDS: SENNA 8.6 MG TAB (SENOKOT) PO SCH ×2 (09:13→20:45)
[2021-05-15] MEDS: CARVedilol 3.125 MG TAB PO SCH (09:16)
[2021-05-15] MEDS: OXcarbazepine 300 MG TAB PO SCH ×2 (09:16→20:45)
[2021-05-15] MEDS: NYSTATIN 100,000 UNITS/GM TOPICAL PWD 15 GM TOP SCH (09:17)
[2021-05-15 09:20] VITALS: BP 148/86
[2021-05-15 12:30] VITALS: BP 130/81
[2021-05-15] MEDS: ACETAMINOPHEN TAB 650MG DOSE (2X325MG) PO PRN (12:35)
[2021-05-15 16:16] VITALS: BP 128/80
[2021-05-15] MEDS: FAMOTIDINE 20 MG TAB PO SCH (18:15)
[2021-05-15] MEDS: ATORVASTATIN 20 MG TAB PO SCH (20:44)
[2021-05-15] MEDS: LEVEMIR (INSULIN DETEMIR) 1 UNITS/0.01ML SC SCH (20:45)
[2021-05-15] MEDS: DOCUSATE SODIUM 100MG CAPSULE PO SCH (20:45)
[2021-05-15] MEDS: PALIPERIDONE 3 MG ER TAB (INVEGA) PO SCH (20:45)
[2021-05-15 22:00] VITALS: BP 116/65
[2021-05-16] MEDS: MULTIVITAMINS/MINERALS THERAP 1 TAB PO SCH (05:38)
[2021-05-16] MEDS: VENLAFAXINE **XR** 75MG CAPSULE PO SCH (05:38)
[2021-05-16] MEDS: OXcarbazepine 300 MG TAB PO SCH ×2 (05:38→20:16)
[2021-05-16] MEDS: TAMSULOSIN 0.4 MG CAP PO SCH (05:39)
[2021-05-16] MEDS: LEVOTHYROXINE 50MCG TABLET (0.05MG) PO SCH (05:39)
[2021-05-16] MEDS: APIXABAN 5 MG TAB (ELIQUIS) PO SCH ×2 (05:39→20:16)
[2021-05-16] MEDS: LACTOBACILLUS ACIDOPHILUS CAP (BACID) PO SCH ×2 (05:39→17:43)
[2021-05-16] MEDS: SENNA 8.6 MG TAB (SENOKOT) PO SCH ×2 (05:41→20:15)
[2021-05-16] MEDS: CARVedilol 3.125 MG TAB PO SCH (05:51)
[2021-05-16] MEDS: MIDODRINE 5 MG TAB PO SCH ×3 (05:55→16:00)
[2021-05-16 06:00] VITALS: BP 138/86
[2021-05-16] MEDS ORDERED: LIDOCAINE 1% SDV 5ML VIAL SC PRN (06:00)
[2021-05-16] MEDS ORDERED: SODIUM CHLORIDE 0.9% 1000ML IV PRN (06:00)
[2021-05-16] MEDS: EMLA CREAM 5GM TUBE (LIDOCAINE/PRILOCAINE) TOP SCH (07:41)
[2021-05-16] MEDS: HumaLOG INSULIN (NovoLOG) PER UNIT SC SCH ×4 (07:42→20:17)
[2021-05-16] MEDS: CALCIUM ACETATE 667MG GELCAP PO SCH ×3 (08:00→17:43)
[2021-05-16 08:50] LABS: BASO % 0.5 % (0.0-1.0); EOS # 0.7 10^3/uL (0.0-0.5); EOS % 9.8 % (0.0-3.0); HEMATOCRIT 28.5 % (42.0-52.0); HEMOGLOBIN 8.8 g/dl (13.5-17.5); LYMPH # 0.6 10^3/uL (1.5-5.0); MEAN CORPUSCULAR HEMOGLOBIN 34.5 pg (27.0-33.0); MEAN CORPUSCULAR HGB CONC 30.9 g/dl (32.0-36.5); MEAN CORPUSCULAR VOLUME 111.8 fl (80.0-96.0); MONO # 0.8 10^3/uL (0.0-0.8); MONO % 10.8 % (2.0-8.0); NEUTROPHILS # 5.2 10^3/uL (1.5-8.5); NEUTROPHILS % 69.8 % (36.0-66.0); PLATELET COUNT, AUTOMATED 138 10^3/uL (150-450); RED BLOOD COUNT 2.55 10^6/uL (4.30-6.10); WHITE BLOOD COUNT 7.5 10^3/uL (4.0-10.0)
[2021-05-16 09:08] LABS: ALBUMIN 2.7 GM/DL (3.2-5.2); CALCIUM LEVEL 8.8 MG/DL (8.8-10.2); CREATININE FOR GFR 5.45 MG/DL (0.70-1.30); GLOMERULAR FILTRATION RATE 11.3 (>49); PHOSPHORUS LEVEL 3.7 MG/DL (2.5-4.9); POTASSIUM SERUM 5.1 MEQ/L (3.5-5.1)
[2021-05-16] MEDS: NYSTATIN 100,000 UNITS/GM TOPICAL PWD 15 GM TOP SCH (09:27)
[2021-05-16 16:00] VITALS: BP 123/71
[2021-05-16] MEDS: FAMOTIDINE 20 MG TAB PO SCH (17:43)
[2021-05-16] MEDS: DOCUSATE SODIUM 100MG CAPSULE PO SCH (20:15)
[2021-05-16] MEDS: PALIPERIDONE 3 MG ER TAB (INVEGA) PO SCH (20:15)
[2021-05-16] MEDS: ATORVASTATIN 20 MG TAB PO SCH (20:16)
[2021-05-16] MEDS: LEVEMIR (INSULIN DETEMIR) 1 UNITS/0.01ML SC SCH (20:16)
[2021-05-17] MEDS: LEVOTHYROXINE 50MCG TABLET (0.05MG) PO SCH (04:51)
[2021-05-17 06:00] VITALS: BP 134/84
[2021-05-17] MEDS: HumaLOG INSULIN (NovoLOG) PER UNIT SC SCH ×4 (08:29→21:00)
[2021-05-17] MEDS: CALCIUM ACETATE 667MG GELCAP PO SCH ×3 (08:29→17:46)
[2021-05-17] MEDS: OXcarbazepine 300 MG TAB PO SCH ×3 (08:30→22:19)
[2021-05-17] MEDS: VENLAFAXINE **XR** 75MG CAPSULE PO SCH (08:30)
[2021-05-17] MEDS: LACTOBACILLUS ACIDOPHILUS CAP (BACID) PO SCH ×2 (08:30→17:46)
[2021-05-17] MEDS: MULTIVITAMINS/MINERALS THERAP 1 TAB PO SCH (08:31)
[2021-05-17] MEDS: TAMSULOSIN 0.4 MG CAP PO SCH (08:31)
[2021-05-17] MEDS: MIDODRINE 5 MG TAB PO SCH ×3 (08:31→16:50)
[2021-05-17] MEDS: SENNA 8.6 MG TAB (SENOKOT) PO SCH ×3 (08:31→22:19)
[2021-05-17] MEDS: APIXABAN 5 MG TAB (ELIQUIS) PO SCH ×3 (08:31→22:19)
[2021-05-17] MEDS: CARVedilol 3.125 MG TAB PO SCH (08:32)
[2021-05-17] MEDS: NYSTATIN 100,000 UNITS/GM TOPICAL PWD 15 GM TOP SCH (08:36)
[2021-05-17] MEDS: ACETAMINOPHEN TAB 650MG DOSE (2X325MG) PO PRN (10:48)
[2021-05-17] MEDS: FAMOTIDINE 20 MG TAB PO SCH (17:46)
[2021-05-17] MEDS: LEVEMIR (INSULIN DETEMIR) 1 UNITS/0.01ML SC SCH (21:24)
[2021-05-17] MEDS: DOCUSATE SODIUM 100MG CAPSULE PO SCH ×2 (21:24→22:18)
[2021-05-17] MEDS: ATORVASTATIN 20 MG TAB PO SCH ×2 (21:24→22:19)
[2021-05-17] MEDS: PALIPERIDONE 3 MG ER TAB (INVEGA) PO SCH ×2 (21:25→22:19)
[2021-05-18] MEDS: TAMSULOSIN 0.4 MG CAP PO SCH ×2 (05:45→07:56)
[2021-05-18] MEDS: LACTOBACILLUS ACIDOPHILUS CAP (BACID) PO SCH ×3 (05:46→17:51)
[2021-05-18] MEDS: OXcarbazepine 300 MG TAB PO SCH ×3 (05:46→20:30)
[2021-05-18] MEDS: VENLAFAXINE **XR** 75MG CAPSULE PO SCH ×2 (05:46→07:56)
[2021-05-18] MEDS: CARVedilol 3.125 MG TAB PO SCH ×2 (05:47→07:57)
[2021-05-18] MEDS: MULTIVITAMINS/MINERALS THERAP 1 TAB PO SCH ×2 (05:48→07:53)
[2021-05-18] MEDS: APIXABAN 5 MG TAB (ELIQUIS) PO SCH ×2 (05:48→20:31)
[2021-05-18] MEDS: CALCIUM ACETATE 667MG GELCAP PO SCH ×3 (05:48→17:51)
[2021-05-18] MEDS: LEVOTHYROXINE 50MCG TABLET (0.05MG) PO SCH ×2 (05:48→05:58)
[2021-05-18] MEDS: SENNA 8.6 MG TAB (SENOKOT) PO SCH ×2 (05:48→20:31)
[2021-05-18] MEDS: NYSTATIN 100,000 UNITS/GM TOPICAL PWD 15 GM TOP SCH (05:48)
[2021-05-18 06:00] VITALS: BP 144/86
[2021-05-18] MEDS ORDERED: LIDOCAINE 1% SDV 5ML VIAL SC PRN (06:55)
[2021-05-18] MEDS ORDERED: SODIUM CHLORIDE 0.9% 1000ML IV PRN (06:55)
[2021-05-18] MEDS: HumaLOG INSULIN (NovoLOG) PER UNIT SC SCH ×4 (07:30→21:00)
[2021-05-18] MEDS: EMLA CREAM 5GM TUBE (LIDOCAINE/PRILOCAINE) TOP SCH (07:53)
[2021-05-18] MEDS: MIDODRINE 5 MG TAB PO SCH ×3 (08:00→17:53)
[2021-05-18 09:14] LABS: HEMATOCRIT 28.7 % (42.0-52.0); HEMOGLOBIN 8.8 g/dl (13.5-17.5); MEAN CORPUSCULAR HEMOGLOBIN 34.2 pg (27.0-33.0); MEAN CORPUSCULAR HGB CONC 30.7 g/dl (32.0-36.5); MEAN CORPUSCULAR VOLUME 111.7 fl (80.0-96.0); PLATELET COUNT, AUTOMATED 163 10^3/uL (150-450); RED BLOOD COUNT 2.57 10^6/uL (4.30-6.10); WHITE BLOOD COUNT 7.9 10^3/uL (4.0-10.0)
[2021-05-18 09:32] LABS: CREATININE FOR GFR 4.99 MG/DL (0.70-1.30); GLOMERULAR FILTRATION RATE 12.5 (>49)
[2021-05-18] MEDS: DARBEPOETIN 200MCG/0.4ML *DIALYSIS* SYRINGE (J0882 PER 1MCG) IV SCH (09:51)
[2021-05-18] MEDS: ACETAMINOPHEN TAB 650MG DOSE (2X325MG) PO PRN ×2 (16:52→22:03)
[2021-05-18] MEDS: FAMOTIDINE 20 MG TAB PO SCH (17:51)
[2021-05-18] MEDS: PALIPERIDONE 3 MG ER TAB (INVEGA) PO SCH (20:30)
[2021-05-18] MEDS: DOCUSATE SODIUM 100MG CAPSULE PO SCH (20:30)
[2021-05-18] MEDS: ATORVASTATIN 20 MG TAB PO SCH (20:31)
[2021-05-18] MEDS ORDERED: RAMELTEON 8 MG TAB (ROZEREM) PO PRN (21:30)
[2021-05-18] MEDS: LEVEMIR (INSULIN DETEMIR) 1 UNITS/0.01ML SC SCH (22:02)
[2021-05-19] MEDS: LEVOTHYROXINE 50MCG TABLET (0.05MG) PO SCH (05:35)
[2021-05-19 06:00] VITALS: BP 109/68
[2021-05-19 06:58] LABS: HEMATOCRIT 28.9 % (42.0-52.0); HEMOGLOBIN 8.7 g/dl (13.5-17.5); MEAN CORPUSCULAR HEMOGLOBIN 34.1 pg (27.0-33.0); MEAN CORPUSCULAR HGB CONC 30.1 g/dl (32.0-36.5); MEAN CORPUSCULAR VOLUME 113.3 fl (80.0-96.0); PLATELET COUNT, AUTOMATED 163 10^3/uL (150-450); RED BLOOD COUNT 2.55 10^6/uL (4.30-6.10); WHITE BLOOD COUNT 5.4 10^3/uL (4.0-10.0)
[2021-05-19 07:15] LABS: CALCIUM LEVEL 8.4 MG/DL (8.8-10.2); CREATININE FOR GFR 3.51 MG/DL (0.70-1.30); GLOMERULAR FILTRATION RATE 18.8 (>49); POTASSIUM SERUM 4.6 MEQ/L (3.5-5.1)
[2021-05-19] MEDS: HumaLOG INSULIN (NovoLOG) PER UNIT SC SCH ×4 (07:30→21:00)
[2021-05-19] MEDS: CARVedilol 3.125 MG TAB PO SCH (09:00)
[2021-05-19] MEDS: ACETAMINOPHEN TAB 650MG DOSE (2X325MG) PO PRN ×2 (09:04→22:37)
[2021-05-19] MEDS: SENNA 8.6 MG TAB (SENOKOT) PO SCH ×2 (09:04→22:17)
[2021-05-19] MEDS: LACTOBACILLUS ACIDOPHILUS CAP (BACID) PO SCH ×2 (09:04→18:23)
[2021-05-19] MEDS: OXcarbazepine 300 MG TAB PO SCH ×2 (09:04→22:18)
[2021-05-19] MEDS: NYSTATIN 100,000 UNITS/GM TOPICAL PWD 15 GM TOP SCH (09:04)
[2021-05-19] MEDS: VENLAFAXINE **XR** 75MG CAPSULE PO SCH (09:05)
[2021-05-19] MEDS: APIXABAN 5 MG TAB (ELIQUIS) PO SCH ×2 (09:05→22:17)
[2021-05-19] MEDS: MULTIVITAMINS/MINERALS THERAP 1 TAB PO SCH (09:05)
[2021-05-19] MEDS: CALCIUM ACETATE 667MG GELCAP PO SCH ×3 (09:05→18:23)
[2021-05-19] MEDS: TAMSULOSIN 0.4 MG CAP PO SCH (09:05)
[2021-05-19] MEDS: MIDODRINE 5 MG TAB PO SCH ×4 (09:08→16:00)
[2021-05-19] MEDS: FAMOTIDINE 20 MG TAB PO SCH (18:23)
[2021-05-19] MEDS: LEVEMIR (INSULIN DETEMIR) 1 UNITS/0.01ML SC SCH (22:14)
[2021-05-19] MEDS: PALIPERIDONE 3 MG ER TAB (INVEGA) PO SCH (22:16)
[2021-05-19] MEDS: ATORVASTATIN 20 MG TAB PO SCH (22:17)
[2021-05-19] MEDS: DOCUSATE SODIUM 100MG CAPSULE PO SCH (22:17)
[2021-05-20] MEDS: LEVOTHYROXINE 50MCG TABLET (0.05MG) PO SCH (05:20)
[2021-05-20 06:00] VITALS: BP 139/77
[2021-05-20 06:35] LABS: HEMATOCRIT 27.9 % (42.0-52.0); HEMOGLOBIN 8.5 g/dl (13.5-17.5); MEAN CORPUSCULAR HEMOGLOBIN 34.4 pg (27.0-33.0); MEAN CORPUSCULAR HGB CONC 30.5 g/dl (32.0-36.5); PLATELET COUNT, AUTOMATED 167 10^3/uL (150-450); RED BLOOD COUNT 2.47 10^6/uL (4.30-6.10); WHITE BLOOD COUNT 6.1 10^3/uL (4.0-10.0)
[2021-05-20 07:00] LABS: CALCIUM LEVEL 8.9 MG/DL (8.8-10.2); CREATININE FOR GFR 4.85 MG/DL (0.70-1.30); GLOMERULAR FILTRATION RATE 12.9 (>49); POTASSIUM SERUM 5.2 MEQ/L (3.5-5.1)
[2021-05-20] MEDS: LACTOBACILLUS ACIDOPHILUS CAP (BACID) PO SCH ×2 (09:32→17:25)
[2021-05-20] MEDS: HumaLOG INSULIN (NovoLOG) PER UNIT SC SCH ×4 (09:32→21:00)
[2021-05-20] MEDS: CALCIUM ACETATE 667MG GELCAP PO SCH ×3 (09:32→17:25)
[2021-05-20] MEDS: MIDODRINE 5 MG TAB PO SCH ×3 (09:33→17:25)
[2021-05-20] MEDS: VENLAFAXINE **XR** 75MG CAPSULE PO SCH (09:33)
[2021-05-20] MEDS: SENNA 8.6 MG TAB (SENOKOT) PO SCH ×2 (09:34→21:12)
[2021-05-20] MEDS: OXcarbazepine 300 MG TAB PO SCH ×2 (09:34→21:12)
[2021-05-20] MEDS: CARVedilol 3.125 MG TAB PO SCH (09:34)
[2021-05-20] MEDS: APIXABAN 5 MG TAB (ELIQUIS) PO SCH ×2 (09:34→21:12)
[2021-05-20] MEDS: TAMSULOSIN 0.4 MG CAP PO SCH (09:34)
[2021-05-20] MEDS: MULTIVITAMINS/MINERALS THERAP 1 TAB PO SCH (09:34)
[2021-05-20] MEDS: NYSTATIN 100,000 UNITS/GM TOPICAL PWD 15 GM TOP SCH (09:34)
[2021-05-20] MEDS: FAMOTIDINE 20 MG TAB PO SCH (17:25)
[2021-05-20] MEDS: ATORVASTATIN 20 MG TAB PO SCH (21:12)
[2021-05-20] MEDS: PALIPERIDONE 3 MG ER TAB (INVEGA) PO SCH (21:12)
[2021-05-20] MEDS: DOCUSATE SODIUM 100MG CAPSULE PO SCH (21:12)
[2021-05-20] MEDS: LEVEMIR (INSULIN DETEMIR) 1 UNITS/0.01ML SC SCH (21:14)
[2021-05-20] MEDS ORDERED: BENZONATATE 100MG CAPSULE PO PRN (22:50)
[2021-05-20] MEDS ORDERED: CEPACOL LOZENGE PO PRN (22:50)
[2021-05-20] MEDS: ACETAMINOPHEN TAB 650MG DOSE (2X325MG) PO PRN (23:36)
[2021-05-21 06:00] VITALS: BP 118/72
[2021-05-21] MEDS: LEVOTHYROXINE 50MCG TABLET (0.05MG) PO SCH (06:55)
[2021-05-21] MEDS: MULTIVITAMINS/MINERALS THERAP 1 TAB PO SCH (06:55)
[2021-05-21] MEDS: TAMSULOSIN 0.4 MG CAP PO SCH (06:55)
[2021-05-21] MEDS: OXcarbazepine 300 MG TAB PO SCH ×2 (06:55→22:25)
[2021-05-21] MEDS: SENNA 8.6 MG TAB (SENOKOT) PO SCH ×2 (06:56→22:23)
[2021-05-21] MEDS: VENLAFAXINE **XR** 75MG CAPSULE PO SCH (06:56)
[2021-05-21] MEDS: LACTOBACILLUS ACIDOPHILUS CAP (BACID) PO SCH ×2 (06:56→18:07)
[2021-05-21] MEDS: MIDODRINE 5 MG TAB PO SCH ×3 (06:58→18:08)
[2021-05-21 06:59] VITALS: BP 124/71
[2021-05-21] MEDS: NYSTATIN 100,000 UNITS/GM TOPICAL PWD 15 GM TOP SCH (06:59)
[2021-05-21] MEDS: CARVedilol 3.125 MG TAB PO SCH (06:59)
[2021-05-21] MEDS ORDERED: LIDOCAINE 1% SDV 5ML VIAL SC PRN (07:00)
[2021-05-21] MEDS ORDERED: SODIUM CHLORIDE 0.9% 1000ML IV PRN (07:00)
[2021-05-21] MEDS ORDERED: IRON SUCROSE 100MG 5ML VIAL (J1756 PER 1MG) IV SCH (07:00)
[2021-05-21] MEDS: APIXABAN 5 MG TAB (ELIQUIS) PO SCH ×2 (07:04→22:24)
[2021-05-21] MEDS: EMLA CREAM 5GM TUBE (LIDOCAINE/PRILOCAINE) TOP SCH (07:43)
[2021-05-21] MEDS: HumaLOG INSULIN (NovoLOG) PER UNIT SC SCH ×4 (08:06→21:00)
[2021-05-21] MEDS: CALCIUM ACETATE 667MG GELCAP PO SCH ×3 (08:06→18:07)
[2021-05-21 09:08] LABS: HEMATOCRIT 29.2 % (42.0-52.0); HEMOGLOBIN 8.9 g/dl (13.5-17.5); MEAN CORPUSCULAR HEMOGLOBIN 33.7 pg (27.0-33.0); MEAN CORPUSCULAR HGB CONC 30.5 g/dl (32.0-36.5); MEAN CORPUSCULAR VOLUME 110.6 fl (80.0-96.0); PLATELET COUNT, AUTOMATED 170 10^3/uL (150-450); RED BLOOD COUNT 2.64 10^6/uL (4.30-6.10); WHITE BLOOD COUNT 6.7 10^3/uL (4.0-10.0)
[2021-05-21 09:35] LABS: CALCIUM LEVEL 8.9 MG/DL (8.8-10.2); CREATININE FOR GFR 5.92 MG/DL (0.70-1.30); GLOMERULAR FILTRATION RATE 10.3 (>49); POTASSIUM SERUM 5.4 MEQ/L (3.5-5.1)
[2021-05-21] MEDS: FAMOTIDINE 20 MG TAB PO SCH (18:08)
[2021-05-21] MEDS: PALIPERIDONE 3 MG ER TAB (INVEGA) PO SCH (22:24)
[2021-05-21] MEDS: DOCUSATE SODIUM 100MG CAPSULE PO SCH (22:24)
[2021-05-21] MEDS: ATORVASTATIN 20 MG TAB PO SCH (22:24)
[2021-05-21] MEDS: LEVEMIR (INSULIN DETEMIR) 1 UNITS/0.01ML SC SCH (22:26)
[2021-05-22] MEDS: LEVOTHYROXINE 50MCG TABLET (0.05MG) PO SCH (05:42)
[2021-05-22 06:00] VITALS: BP 129/81
[2021-05-22 06:21] LABS: HEMATOCRIT 27.7 % (42.0-52.0); HEMOGLOBIN 8.5 g/dl (13.5-17.5); MEAN CORPUSCULAR HEMOGLOBIN 34.6 pg (27.0-33.0); MEAN CORPUSCULAR HGB CONC 30.7 g/dl (32.0-36.5); MEAN CORPUSCULAR VOLUME 112.6 fl (80.0-96.0); PLATELET COUNT, AUTOMATED 162 10^3/uL (150-450); RED BLOOD COUNT 2.46 10^6/uL (4.30-6.10); WHITE BLOOD COUNT 6.8 10^3/uL (4.0-10.0)
[2021-05-22 06:40] LABS: CALCIUM LEVEL 8.8 MG/DL (8.8-10.2); GLOMERULAR FILTRATION RATE 16.2 (>49)
[2021-05-22] MEDS: CALCIUM ACETATE 667MG GELCAP PO SCH ×2 (08:00→08:25)
[2021-05-22] MEDS: MIDODRINE 5 MG TAB PO SCH ×2 (08:00→08:26)
[2021-05-22] MEDS: LACTOBACILLUS ACIDOPHILUS CAP (BACID) PO SCH ×2 (08:00→08:26)
[2021-05-22] MEDS: HumaLOG INSULIN (NovoLOG) PER UNIT SC SCH (08:25)
[2021-05-22] MEDS: OXcarbazepine 300 MG TAB PO SCH (08:25)
[2021-05-22] MEDS: SENNA 8.6 MG TAB (SENOKOT) PO SCH (08:26)
[2021-05-22] MEDS: VENLAFAXINE **XR** 75MG CAPSULE PO SCH ×2 (08:26→09:00)
[2021-05-22] MEDS: APIXABAN 5 MG TAB (ELIQUIS) PO SCH ×2 (08:27→09:00)
[2021-05-22] MEDS: NYSTATIN 100,000 UNITS/GM TOPICAL PWD 15 GM TOP SCH (08:27)
[2021-05-22] MEDS: MULTIVITAMINS/MINERALS THERAP 1 TAB PO SCH ×2 (08:27→09:00)
[2021-05-22] MEDS: CARVedilol 3.125 MG TAB PO SCH ×2 (08:27→09:00)
[2021-05-22] MEDS: TAMSULOSIN 0.4 MG CAP PO SCH ×2 (08:27→09:00)
[2021-05-22] MEDS: ACETAMINOPHEN TAB 650MG DOSE (2X325MG) PO PRN (09:06)
== END 2021-05-22 12:20 | DRG 377 ==
LOC: M ED 14:29 → M ED INP 18:13 → ENRESERV 19:34 → M PCU 21:30 → M MSPAV 05-11 21:03
PROVIDERS: ADMIT Family Medicine; ATTEND Family Medicine
PROC: 5A1D70Z Performance of Urinary Filtration, Intermittent, Less than 6 Hours Per Day (ICD-10-PCS; principal; 2021-05-09)
DX: K62.5 Hemorrhage of anus and rectum (principal); N18.6 End stage renal disease; I50.23 Acute on chronic systolic (congestive) heart failure; J96.21 Acute and chronic respiratory failure with hypoxia; J96.22 Acute and chronic respiratory failure with hypercapnia; Z68.43 Body mass index [BMI] 50.0-59.9, adult; I13.2 Hypertensive heart and chronic kidney disease with heart failure and with stage 5 chronic kidney disease, or end stage renal disease; E66.01 Morbid (severe) obesity due to excess calories; K21.9 Gastro-esophageal reflux disease without esophagitis; E78.5 Hyperlipidemia, unspecified; I48.91 Unspecified atrial fibrillation; E11.9 Type 2 diabetes mellitus without complications; Z79.899 Other long term (current) drug therapy; Z79.82 Long term (current) use of aspirin; Z79.4 Long term (current) use of insulin; D63.1 Anemia in chronic kidney disease; I27.20 Pulmonary hypertension, unspecified; F41.9 Anxiety disorder, unspecified; F32.9 Major depressive disorder, single episode, unspecified; I95.89 Other hypotension; G47.33 Obstructive sleep apnea (adult) (pediatric); Z79.01 Long term (current) use of anticoagulants; E87.5 Hyperkalemia

== ENCOUNTER → 2021-05-22 | Outpatient (REF) ==
[~2021-05-22] MED LIST changes: +BACITAB PO; +CORE3.12 PO; +LEVO25TA5 PO; +MILK400S19 PO; +TOUJ1.2I SQ; +VITMTA PO
== END ==
PROVIDERS: ATTEND Internal Medicine
DX: D64.9 Anemia, unspecified (principal); Z53.9 Procedure and treatment not carried out, unspecified reason

== ENCOUNTER → 2021-06-05 | Outpatient (REF) ==
[2021-06-05 12:04] LABS: HEMATOCRIT 29.1 % (42.0-52.0); HEMOGLOBIN 8.5 g/dl (13.5-17.5); MEAN CORPUSCULAR HGB CONC 29.2 g/dl (32.0-36.5); PLATELET COUNT, AUTOMATED 102 10^3/uL (150-450)
[2021-06-05 12:06] LABS: MEAN CORPUSCULAR VOLUME 116.4 fl (80.0-96.0)
[2021-06-05 13:22] LABS: CALCIUM LEVEL 9.1 MG/DL (8.8-10.2); CREATININE FOR GFR 3.49 MG/DL (0.70-1.30); GLOMERULAR FILTRATION RATE 18.9 (>49)
== END ==
PROVIDERS: ATTEND Internal Medicine
DX: D64.9 Anemia, unspecified (principal)

== ENCOUNTER 2021-06-12 11:46 | Inpatient (IN) | payer MEDICARE, MEDICAID ==
[~2021-06-12] VITALS: Ht 172.7 cm; Wt 146.0 kg
[~2021-06-12 11:46] MED LIST changes: -TOUJ1.2I SQ
[2021-06-12] MEDS ORDERED: ETOMIDATE INJ 20MG/10ML VIAL ONE (11:48)
[2021-06-12 12:20] LABS: BASO # 0.1 10^3/uL (0.0-0.2); BASO % 0.8 % (0.0-1.0); EOS # 0.3 10^3/uL (0.0-0.5); EOS % 3.6 % (0.0-3.0); HEMATOCRIT 32.7 % (42.0-52.0); HEMOGLOBIN 9.6 g/dl (13.5-17.5); LYMPH # 0.7 10^3/uL (1.5-5.0); LYMPH % 7.1 % (24.0-44.0); MEAN CORPUSCULAR HEMOGLOBIN 33.9 pg (27.0-33.0); MEAN CORPUSCULAR HGB CONC 29.4 g/dl (32.0-36.5); MONO % 10.9 % (2.0-8.0); NEUTROPHILS # 7.1 10^3/uL (1.5-8.5); NEUTROPHILS % 76.9 % (36.0-66.0); PLATELET COUNT, AUTOMATED 136 10^3/uL (150-450); RED BLOOD COUNT 2.83 10^6/uL (4.30-6.10); WHITE BLOOD COUNT 9.2 10^3/uL (4.0-10.0)
[2021-06-12 12:21] LABS: MEAN CORPUSCULAR VOLUME 115.5 fl (80.0-96.0)
[2021-06-12 12:41] LABS: ABG BASE EXCESS 1.2 (-2.0-2.0); ABG HCO3 30.2 MEQ/L (22.0-26.0); ABG O2 SATURATION 97.5 % (95.0-99.0); ABG PARTIAL PRESSURE O2 120.2 mmHg (75.0-100.0); ABG STANDARD HCO3 25.6 MEQ/L (22.0-26.0); ABG TOTAL CO2 32.6 MEQ/L (23.0-31.0)
[2021-06-12 12:44] LABS: ABG pH (ARTERIAL) 7.218 UNITS (7.350-7.450)
[2021-06-12 12:45] LABS: ABG PARTIAL PRESSURE CO2 75.9 mmHg (35.0-45.0)
[2021-06-12 13:02] LABS: ANISOCYTOSIS 2+; PLATELET ESTIMATE DECREASED (NORMAL); STOMATOCYTES 2+
[2021-06-12 13:05] LABS: ALBUMIN 2.6 GM/DL (3.2-5.2); BILIRUBIN,DIRECT 0.2 MG/DL (0.0-0.2); BILIRUBIN,TOTAL 0.5 MG/DL (0.2-1.0); CALCIUM LEVEL 8.9 MG/DL (8.8-10.2); CREATININE FOR GFR 4.04 MG/DL (0.70-1.30); POTASSIUM SERUM 5.2 MEQ/L (3.5-5.1); THYROXINE (T4) 2.9 UG/DL (4.5-12.0); TOTAL PROTEIN 6.5 GM/DL (6.4-8.2)
[2021-06-12] MEDS ORDERED: ACET32TAB PO (13:05)
[2021-06-12] MEDS ORDERED: [UNRECOGNIZED DRUG - CODE] TOP (13:05)
[2021-06-12] MEDS ORDERED: HOME MED LIST COMPLETE! XX SCH (13:15)
[2021-06-12 14:26] LABS: ABG BASE EXCESS 1.9 (-2.0-2.0); ABG HCO3 28.4 MEQ/L (22.0-26.0); ABG O2 SATURATION 93.6 % (95.0-99.0); ABG PARTIAL PRESSURE CO2 55.3 mmHg (35.0-45.0); ABG PARTIAL PRESSURE O2 75.7 mmHg (75.0-100.0); ABG STANDARD HCO3 26.1 MEQ/L (22.0-26.0); ABG TOTAL CO2 30.1 MEQ/L (23.0-31.0); ABG pH (ARTERIAL) 7.329 UNITS (7.350-7.450)
[2021-06-12] MEDS ORDERED: FLEET ENEMA PR PRN (15:00)
[2021-06-12] MEDS ORDERED: GLUCAGON INJ 1MG VIAL IM SCH (15:00)
[2021-06-12] MEDS ORDERED: MIDODRINE 5 MG TAB PO SCH (15:00)
[2021-06-12] MEDS ORDERED: GLUCAGON INJ 1MG VIAL SC PRN (15:00)
[2021-06-12] MEDS ORDERED: ACETAMINOPHEN TAB 650MG DOSE (2X325MG) PO PRN (15:00)
[2021-06-12] MEDS ORDERED: DEXTROSE 50% 50 ML SYRINGE IV PRN (15:00)
[2021-06-12] MEDS ORDERED: GLUCOSE 4GM CHEW TABLET PO PRN (15:00)
[2021-06-12] MEDS ORDERED: BISACODYL 10 MG SUPP PR PRN (15:00)
[2021-06-12] MEDS ORDERED: EMLA CREAM 5GM TUBE (LIDOCAINE/PRILOCAINE) TOP SCH (15:00)
[2021-06-12] MEDS ORDERED: MIDODRINE 5 MG TAB PO ONE (15:45)
[2021-06-12] MEDS: CALCIUM ACETATE 667MG GELCAP PO SCH ×2 (16:00→21:00)
[2021-06-12] MEDS ORDERED: NS 250 ML IV ONE (16:25)
[2021-06-12] MEDS ORDERED: HumaLOG INSULIN (NovoLOG) PER UNIT SC SCH ×2 (17:30→21:00)
[2021-06-12] MEDS ORDERED: AMPICILLIN SOD/SULBACTAM SOD 3 GM in D5W MINI-BAG PLUS 100 ML IV SCH (18:00)
[2021-06-12] MEDS: NOREPINEPHRINE BITARTRATE 8 MG in D5W 492 ML IV SCH (18:16)
[2021-06-12 21:00] VITALS: BP 89/42
[2021-06-12] MEDS ORDERED: DOCUSATE SODIUM 100MG CAPSULE PO SCH (21:00)
[2021-06-12] MEDS ORDERED: ATORVASTATIN 20 MG TAB PO SCH (21:00)
[2021-06-12] MEDS ORDERED: SENNA 8.6 MG TAB (SENOKOT) PO SCH (21:00)
[2021-06-12] MEDS ORDERED: PALIPERIDONE 3 MG ER TAB (INVEGA) PO SCH (21:00)
[2021-06-12] MEDS ORDERED: APIXABAN 5 MG TAB (ELIQUIS) PO SCH (21:00)
[2021-06-12] MEDS ORDERED: FAMOTIDINE 20 MG TAB PO SCH (21:00)
[2021-06-12] MEDS ORDERED: OXcarbazepine 300 MG TAB PO SCH (21:00)
[2021-06-12] MEDS ORDERED: LACTOBACILLUS ACIDOPHILUS CAP (BACID) PO SCH (21:00)
[2021-06-12 21:01] VITALS: BP 89/42
[2021-06-12 21:11] VITALS: BP 105/52
[2021-06-12 21:13] VITALS: BP 104/56
[2021-06-12 22:19] VITALS: BP 128/64
[2021-06-13] VITALS (84 sets, daily range): BP systolic 79–148; BP diastolic 37–85
[2021-06-13] MEDS: VANICREAM MOISTURIZING SKIN CREAM 113GM TUBE TOP SCH ×3 (00:33→20:32)
[2021-06-13] MEDS: POLYVINYL ALCOHOL OPHTH SOLN 15 ML(LIQUITEARS) OU SCH ×3 (00:33→20:32)
[2021-06-13 05:39] LABS: HEMATOCRIT 32.8 % (42.0-52.0); HEMOGLOBIN 9.9 g/dl (13.5-17.5); MEAN CORPUSCULAR HEMOGLOBIN 34.1 pg (27.0-33.0); MEAN CORPUSCULAR HGB CONC 30.2 g/dl (32.0-36.5); MEAN CORPUSCULAR VOLUME 113.1 fl (80.0-96.0); PLATELET COUNT, AUTOMATED 171 10^3/uL (150-450); WHITE BLOOD COUNT 11.4 10^3/uL (4.0-10.0)
[2021-06-13] MEDS ORDERED: LEVOTHYROXINE 50MCG TABLET (0.05MG) PO SCH (06:00)
[2021-06-13 06:07] LABS: CALCIUM LEVEL 8.9 MG/DL (8.8-10.2); CREATININE FOR GFR 4.53 MG/DL (0.70-1.30); MAGNESIUM LEVEL 2.2 MG/DL (1.8-2.4)
[2021-06-13] MEDS: NOREPINEPHRINE BITARTRATE 8 MG in D5W 492 ML IV SCH (08:00)
[2021-06-13 08:09] LABS: VENOUS BASE EXCESS -2.3 (-2.0-2.0); VENOUS HCO3 29.4 MEQ/L (23.0-27.0); VENOUS O2 SATURATION 98.9 % (60.0-80.0); VENOUS PARTIAL PRESSURE O2 173.4 mmHg (30.0-50.0); VENOUS PH 7.086 UNITS (7.330-7.430); VENOUS STANDARD HCO3 22.5 MEQ/L; VENOUS TOTAL CO2 32.5 MEQ/L (24.0-28.0)
[2021-06-13] MEDS ORDERED: ETOMIDATE INJ 20MG/10ML VIAL IV STA (08:25)
[2021-06-13] MEDS ORDERED: DARBEPOETIN 100 MCG/0.5 ML *DIALYSIS* SYRINGE (J0882) IV SCH (08:50)
[2021-06-13] MEDS ORDERED: LIDOCAINE 1% SDV 5ML VIAL SC PRN (08:50)
[2021-06-13] MEDS ORDERED: LEVEMIR (INSULIN DETEMIR) 1 UNITS/0.01ML SC SCH (09:00)
[2021-06-13] MEDS ORDERED: PIPERACILLIN/TAZOBACTAM SOD 2.25 GM in D5W MINI-BAG PLUS 50 ML IV SCH (09:00)
[2021-06-13] MEDS ORDERED: VENLAFAXINE **XR** 75MG CAPSULE PO SCH (09:00)
[2021-06-13] MEDS ORDERED: CARVedilol 3.125 MG TAB PO SCH (09:00)
[2021-06-13] MEDS ORDERED: ASPIRIN 81MG ENTERIC TABLET PO SCH (09:00)
[2021-06-13] MEDS ORDERED: TAMSULOSIN 0.4 MG CAP PO SCH (09:00)
[2021-06-13] MEDS: dexmedeTOMidine 200 MCG in IV 1 EA IV SCH ×4 (09:00→14:56)
[2021-06-13] MEDS ORDERED: MIDODRINE 5 MG TAB PO SCH (09:00)
[2021-06-13] MEDS: fentaNYL 100 MCG/2 ML INJECTION IV PRN (09:48)
[2021-06-13] MEDS ORDERED: ACETAMINOPHEN TAB 650MG DOSE (2X325MG) NG PRN (11:00)
[2021-06-13] MEDS: ASPIRIN 81 MG CHEW TABLET NG SCH (12:15)
[2021-06-13] MEDS: CALCIUM ACETATE 667MG GELCAP NG SCH ×3 (12:15→20:31)
[2021-06-13] MEDS: LEVOTHYROXINE 50MCG TABLET (0.05MG) NG SCH (12:15)
[2021-06-13] MEDS: LACTOBACILLUS ACIDOPHILUS CAP (BACID) PEG SCH ×2 (12:16→20:31)
[2021-06-13] MEDS: APIXABAN 5 MG TAB (ELIQUIS) NG SCH ×2 (12:17→20:31)
[2021-06-13] MEDS: PIPERACILLIN/TAZOBACTAM SOD 2.25 GM in D5W MINI-BAG PLUS 50 ML IV SCH ×2 (12:17→16:07)
[2021-06-13] MEDS: MIDAZOLAM INJ 2MG/2ML VIAL (J2250 PER 1MG) IV PRN ×4 (12:17→23:12)
[2021-06-13] MEDS: PANTOPRAZOLE 40MG VIAL (C9113 PER 1) IV SCH (12:17)
[2021-06-13] MEDS: NYSTATIN 100,000 UNITS/GM TOPICAL PWD 15 GM TOP SCH (12:18)
[2021-06-13] MEDS: OXcarbazepine 300 MG TAB NG SCH ×2 (12:18→20:31)
[2021-06-13] MEDS: SENNA 8.6 MG TAB (SENOKOT) NG SCH ×2 (12:30→20:30)
[2021-06-13] MEDS: HumaLOG INSULIN (NovoLOG) PER UNIT SC SCH ×2 (13:02→18:00)
[2021-06-13] MEDS: MIDODRINE 5 MG TAB NG SCH ×2 (14:22→16:05)
[2021-06-13] MEDS: propofoL 1,000 MG in IV 1 EA IV SCH (18:32)
[2021-06-13] MEDS: ATORVASTATIN 20 MG TAB NG SCH (20:31)
[2021-06-14] VITALS (69 sets, daily range): BP systolic 91–146; BP diastolic 53–94
[2021-06-14] MEDS: MIDAZOLAM INJ 2MG/2ML VIAL (J2250 PER 1MG) IV PRN ×7 (00:01→14:13)
[2021-06-14] MEDS: PIPERACILLIN/TAZOBACTAM SOD 2.25 GM in D5W MINI-BAG PLUS 50 ML IV SCH ×3 (00:22→16:17)
[2021-06-14] MEDS: propofoL 1,000 MG in IV 1 EA IV SCH ×3 (00:25→17:52)
[2021-06-14] MEDS: NOREPINEPHRINE BITARTRATE 8 MG in D5W 492 ML IV SCH ×2 (01:55→08:46)
[2021-06-14] MEDS: LEVOTHYROXINE 50MCG TABLET (0.05MG) NG SCH (05:44)
[2021-06-14] MEDS: HumaLOG INSULIN (NovoLOG) PER UNIT SC SCH ×4 (05:44→17:35)
[2021-06-14 05:56] LABS: BASO # 0.1 10^3/uL (0.0-0.2); BASO % 0.6 % (0.0-1.0); EOS # 1.4 10^3/uL (0.0-0.5); EOS % 16.5 % (0.0-3.0); HEMATOCRIT 29.8 % (42.0-52.0); HEMOGLOBIN 9.3 g/dl (13.5-17.5); LYMPH # 0.6 10^3/uL (1.5-5.0); LYMPH % 7.5 % (24.0-44.0); MEAN CORPUSCULAR HEMOGLOBIN 33.7 pg (27.0-33.0); MEAN CORPUSCULAR HGB CONC 31.2 g/dl (32.0-36.5); MONO # 0.8 10^3/uL (0.0-0.8); MONO % 9.1 % (2.0-8.0); NEUTROPHILS # 5.4 10^3/uL (1.5-8.5); NEUTROPHILS % 65.8 % (36.0-66.0); PLATELET COUNT, AUTOMATED 125 10^3/uL (150-450); RED BLOOD COUNT 2.76 10^6/uL (4.30-6.10); WHITE BLOOD COUNT 8.2 10^3/uL (4.0-10.0)
[2021-06-14 06:14] LABS: ABG BASE EXCESS 3.2 (-2.0-2.0); ABG O2 SATURATION 97.7 % (95.0-99.0); ABG PARTIAL PRESSURE CO2 43.8 mmHg (35.0-45.0); ABG PARTIAL PRESSURE O2 106.3 mmHg (75.0-100.0); ABG STANDARD HCO3 27.4 MEQ/L (22.0-26.0); ABG TOTAL CO2 29.4 MEQ/L (23.0-31.0); ABG pH (ARTERIAL) 7.424 UNITS (7.350-7.450)
[2021-06-14 06:35] LABS: CALCIUM LEVEL 8.5 MG/DL (8.8-10.2); CREATININE FOR GFR 3.69 MG/DL (0.70-1.30); GLOMERULAR FILTRATION RATE 17.8 (>49); MAGNESIUM LEVEL 1.9 MG/DL (1.8-2.4); POTASSIUM SERUM 3.6 MEQ/L (3.5-5.1)
[2021-06-14] MEDS: SENNA 8.6 MG TAB (SENOKOT) NG SCH ×2 (08:18→20:31)
[2021-06-14] MEDS: NYSTATIN 100,000 UNITS/GM TOPICAL PWD 15 GM TOP SCH (08:19)
[2021-06-14] MEDS: LACTOBACILLUS ACIDOPHILUS CAP (BACID) PEG SCH (08:19)
[2021-06-14] MEDS: CALCIUM ACETATE 667MG GELCAP NG SCH ×3 (08:19→20:32)
[2021-06-14] MEDS: ASPIRIN 81 MG CHEW TABLET NG SCH (08:19)
[2021-06-14] MEDS: OXcarbazepine 300 MG TAB NG SCH (08:19)
[2021-06-14] MEDS: APIXABAN 5 MG TAB (ELIQUIS) NG SCH (08:19)
[2021-06-14] MEDS: PANTOPRAZOLE 40MG VIAL (C9113 PER 1) IV SCH (08:19)
[2021-06-14] MEDS: MIDODRINE 5 MG TAB NG SCH ×3 (08:19→16:16)
[2021-06-14] MEDS: POLYVINYL ALCOHOL OPHTH SOLN 15 ML(LIQUITEARS) OU SCH ×2 (08:20→20:33)
[2021-06-14] MEDS: VANICREAM MOISTURIZING SKIN CREAM 113GM TUBE TOP SCH ×2 (08:20→20:33)
[2021-06-14] MEDS ORDERED: VANCOMYCIN HCL 1,000 MG, VIAL MATE ADAPTER 1 EACH in NS 250 ML IV ONE (09:00)
[2021-06-14] MEDS ORDERED: VANCOMYCIN HCL 500 MG in D5W MINI-BAG PLUS 100 ML IV ONE (12:00)
[2021-06-14] MEDS: fentaNYL 100 MCG/2 ML INJECTION IV PRN (12:44)
[2021-06-14] MEDS: APIXABAN 2.5 MG TAB (ELIQUIS) NG SCH (20:31)
[2021-06-14] MEDS: ATORVASTATIN 20 MG TAB NG SCH (20:31)
[2021-06-14] MEDS: OXcarbazepine 300MG 5ML SUSP ORAL SYRINGE *DRAW UP EXACT DOSE NG SCH (20:32)
[2021-06-15] VITALS (34 sets, daily range): BP systolic 81–138; BP diastolic 47–71
[2021-06-15] MEDS: PIPERACILLIN/TAZOBACTAM SOD 2.25 GM in D5W MINI-BAG PLUS 50 ML IV SCH ×3 (01:15→19:30)
[2021-06-15 05:46] LABS: ABG BASE EXCESS 2.7 (-2.0-2.0); ABG HCO3 27.2 MEQ/L (22.0-26.0); ABG O2 SATURATION 98.7 % (95.0-99.0); ABG PARTIAL PRESSURE CO2 41.5 mmHg (35.0-45.0); ABG PARTIAL PRESSURE O2 143.9 mmHg (75.0-100.0); ABG STANDARD HCO3 26.9 MEQ/L (22.0-26.0); ABG TOTAL CO2 28.5 MEQ/L (23.0-31.0); ABG pH (ARTERIAL) 7.434 UNITS (7.350-7.450)
[2021-06-15 06:00] LABS: BASO % 0.4 % (0.0-1.0); EOS # 1.3 10^3/uL (0.0-0.5); HEMATOCRIT 28.5 % (42.0-52.0); HEMOGLOBIN 9.1 g/dl (13.5-17.5); LYMPH # 0.5 10^3/uL (1.5-5.0); LYMPH % 6.7 % (24.0-44.0); MEAN CORPUSCULAR HEMOGLOBIN 33.5 pg (27.0-33.0); MEAN CORPUSCULAR HGB CONC 31.9 g/dl (32.0-36.5); MEAN CORPUSCULAR VOLUME 104.8 fl (80.0-96.0); MONO # 0.6 10^3/uL (0.0-0.8); MONO % 7.9 % (2.0-8.0); NEUTROPHILS % 67.5 % (36.0-66.0); PLATELET COUNT, AUTOMATED 122 10^3/uL (150-450); RED BLOOD COUNT 2.72 10^6/uL (4.30-6.10); WHITE BLOOD COUNT 7.5 10^3/uL (4.0-10.0)
[2021-06-15] MEDS: HumaLOG INSULIN (NovoLOG) PER UNIT SC SCH ×5 (06:00→23:57)
[2021-06-15] MEDS: LEVOTHYROXINE 50MCG TABLET (0.05MG) NG SCH (06:01)
[2021-06-15 06:27] LABS: CALCIUM LEVEL 9.2 MG/DL (8.8-10.2); CREATININE FOR GFR 4.57 MG/DL (0.70-1.30); GLOMERULAR FILTRATION RATE 13.9 (>49); POTASSIUM SERUM 3.9 MEQ/L (3.5-5.1); VANCOMYCIN RANDOM 16.4 UG/ML
[2021-06-15] MEDS ORDERED: SODIUM CHLORIDE 0.9% 1000ML IV PRN (07:15)
[2021-06-15] MEDS ORDERED: LIDOCAINE 1% SDV 5ML VIAL SC PRN (07:15)
[2021-06-15] MEDS: MIDODRINE 5 MG TAB NG SCH ×3 (07:43→15:13)
[2021-06-15] MEDS: propofoL 1,000 MG in IV 1 EA IV SCH ×2 (07:44→21:54)
[2021-06-15] MEDS: VANICREAM MOISTURIZING SKIN CREAM 113GM TUBE TOP SCH ×2 (08:22→20:23)
[2021-06-15] MEDS: OXcarbazepine 300MG 5ML SUSP ORAL SYRINGE *DRAW UP EXACT DOSE NG SCH ×2 (08:22→20:21)
[2021-06-15] MEDS: POLYVINYL ALCOHOL OPHTH SOLN 15 ML(LIQUITEARS) OU SCH ×2 (08:22→20:22)
[2021-06-15] MEDS: ASPIRIN 81 MG CHEW TABLET NG SCH (08:23)
[2021-06-15] MEDS: APIXABAN 2.5 MG TAB (ELIQUIS) NG SCH ×2 (08:23→20:22)
[2021-06-15] MEDS: PANTOPRAZOLE 40MG VIAL (C9113 PER 1) IV SCH (08:23)
[2021-06-15] MEDS: SENNA 8.6 MG TAB (SENOKOT) NG SCH ×2 (08:23→20:21)
[2021-06-15] MEDS: CALCIUM ACETATE 667MG GELCAP NG SCH ×3 (08:23→20:22)
[2021-06-15] MEDS: NYSTATIN 100,000 UNITS/GM TOPICAL PWD 15 GM TOP SCH (08:24)
[2021-06-15] MEDS: MIDAZOLAM INJ 2MG/2ML VIAL (J2250 PER 1MG) IV PRN ×3 (09:01→23:53)
[2021-06-15] MEDS ORDERED: VANCOMYCIN HCL 1,000 MG, VIAL MATE ADAPTER 1 EACH in NS 250 ML IV SCH (16:00)
[2021-06-15] MEDS ORDERED: **VANCO AFTER HD** MISC XX SCH (16:00)
[2021-06-15] MEDS: ATORVASTATIN 20 MG TAB NG SCH (20:22)
[2021-06-16] VITALS (21 sets, daily range): BP systolic 93–131; BP diastolic 51–70; O2SAT 96
[2021-06-16] MEDS: PIPERACILLIN/TAZOBACTAM SOD 2.25 GM in D5W MINI-BAG PLUS 50 ML IV SCH ×3 (01:11→17:17)
[2021-06-16] MEDS: MIDAZOLAM INJ 2MG/2ML VIAL (J2250 PER 1MG) IV PRN (05:19)
[2021-06-16 05:27] LABS: BASO % 0.4 % (0.0-1.0); EOS # 1.1 10^3/uL (0.0-0.5); EOS % 15.5 % (0.0-3.0); HEMOGLOBIN 8.8 g/dl (13.5-17.5); LYMPH # 0.5 10^3/uL (1.5-5.0); LYMPH % 7.9 % (24.0-44.0); MEAN CORPUSCULAR HEMOGLOBIN 33.3 pg (27.0-33.0); MEAN CORPUSCULAR HGB CONC 31.4 g/dl (32.0-36.5); MEAN CORPUSCULAR VOLUME 106.1 fl (80.0-96.0); MONO # 0.6 10^3/uL (0.0-0.8); MONO % 8.9 % (2.0-8.0); NEUTROPHILS # 4.6 10^3/uL (1.5-8.5); NEUTROPHILS % 66.9 % (36.0-66.0); PLATELET COUNT, AUTOMATED 128 10^3/uL (150-450); RED BLOOD COUNT 2.64 10^6/uL (4.30-6.10); WHITE BLOOD COUNT 6.8 10^3/uL (4.0-10.0)
[2021-06-16 05:35] LABS: ABG BASE EXCESS 8.3 (-2.0-2.0); ABG HCO3 33.6 MEQ/L (22.0-26.0); ABG O2 SATURATION 97.5 % (95.0-99.0); ABG PARTIAL PRESSURE O2 101.7 mmHg (75.0-100.0); ABG STANDARD HCO3 32.1 MEQ/L (22.0-26.0); ABG TOTAL CO2 35.2 MEQ/L (23.0-31.0); ABG pH (ARTERIAL) 7.437 UNITS (7.350-7.450)
[2021-06-16 05:46] LABS: CALCIUM LEVEL 8.3 MG/DL (8.8-10.2); CREATININE FOR GFR 3.21 MG/DL (0.70-1.30); GLOMERULAR FILTRATION RATE 20.8 (>49); POTASSIUM SERUM 3.6 MEQ/L (3.5-5.1)
[2021-06-16] MEDS: LEVOTHYROXINE 50MCG TABLET (0.05MG) NG SCH (06:28)
[2021-06-16] MEDS: HumaLOG INSULIN (NovoLOG) PER UNIT SC SCH ×3 (06:29→17:40)
[2021-06-16] MEDS: MIDODRINE 5 MG TAB NG SCH ×3 (08:02→16:00)
[2021-06-16] MEDS: ASPIRIN 81 MG CHEW TABLET NG SCH (08:02)
[2021-06-16] MEDS: SENNA 8.6 MG TAB (SENOKOT) NG SCH ×2 (08:03→20:16)
[2021-06-16] MEDS: CALCIUM ACETATE 667MG GELCAP NG SCH ×3 (08:03→20:15)
[2021-06-16] MEDS: OXcarbazepine 300MG 5ML SUSP ORAL SYRINGE *DRAW UP EXACT DOSE NG SCH ×2 (08:04→20:14)
[2021-06-16] MEDS: PANTOPRAZOLE 40MG VIAL (C9113 PER 1) IV SCH (08:04)
[2021-06-16] MEDS: POLYVINYL ALCOHOL OPHTH SOLN 15 ML(LIQUITEARS) OU SCH ×2 (08:04→20:16)
[2021-06-16] MEDS: NYSTATIN 100,000 UNITS/GM TOPICAL PWD 15 GM TOP SCH (08:05)
[2021-06-16] MEDS: VANICREAM MOISTURIZING SKIN CREAM 113GM TUBE TOP SCH ×2 (08:05→20:16)
[2021-06-16] MEDS: APIXABAN 2.5 MG TAB (ELIQUIS) NG SCH ×2 (08:05→20:14)
[2021-06-16] MEDS: ATORVASTATIN 20 MG TAB NG SCH (20:14)
[2021-06-17] VITALS (14 sets, daily range): BP systolic 87–137; BP diastolic 50–80
[2021-06-17] MEDS: HumaLOG INSULIN (NovoLOG) PER UNIT SC SCH ×3 (00:19→13:30)
[2021-06-17] MEDS: PIPERACILLIN/TAZOBACTAM SOD 2.25 GM in D5W MINI-BAG PLUS 50 ML IV SCH ×2 (00:19→09:09)
[2021-06-17] MEDS: LEVOTHYROXINE 50MCG TABLET (0.05MG) NG SCH (05:34)
[2021-06-17] MEDS: ASPIRIN 81 MG CHEW TABLET NG SCH (09:08)
[2021-06-17] MEDS: MIDODRINE 5 MG TAB NG SCH ×2 (09:09→13:30)
[2021-06-17] MEDS: CALCIUM ACETATE 667MG GELCAP NG SCH (09:09)
[2021-06-17] MEDS: PANTOPRAZOLE 40MG VIAL (C9113 PER 1) IV SCH (09:09)
[2021-06-17] MEDS: APIXABAN 2.5 MG TAB (ELIQUIS) NG SCH (09:09)
[2021-06-17] MEDS: POLYVINYL ALCOHOL OPHTH SOLN 15 ML(LIQUITEARS) OU SCH ×2 (09:10→21:34)
[2021-06-17] MEDS: SENNA 8.6 MG TAB (SENOKOT) NG SCH (09:10)
[2021-06-17] MEDS: VANICREAM MOISTURIZING SKIN CREAM 113GM TUBE TOP SCH ×2 (09:11→21:34)
[2021-06-17] MEDS: NYSTATIN 100,000 UNITS/GM TOPICAL PWD 15 GM TOP SCH (09:11)
[2021-06-17 09:30] LABS: HEMATOCRIT 31.8 % (42.0-52.0); HEMOGLOBIN 9.7 g/dl (13.5-17.5); MEAN CORPUSCULAR HEMOGLOBIN 33.2 pg (27.0-33.0); MEAN CORPUSCULAR HGB CONC 30.5 g/dl (32.0-36.5); MEAN CORPUSCULAR VOLUME 108.9 fl (80.0-96.0); PLATELET COUNT, AUTOMATED 103 10^3/uL (150-450); RED BLOOD COUNT 2.92 10^6/uL (4.30-6.10); WHITE BLOOD COUNT 6.6 10^3/uL (4.0-10.0)
[2021-06-17] MEDS: OXcarbazepine 300MG 5ML SUSP ORAL SYRINGE *DRAW UP EXACT DOSE NG SCH ×2 (09:49→21:00)
[2021-06-17 09:56] LABS: CREATININE FOR GFR 4.23 MG/DL (0.70-1.30); GLOMERULAR FILTRATION RATE 15.2 (>49)
[2021-06-17 10:02] LABS: EOSINOPHILS 23 % (0-3); LYMPHOCYTES 11 % (16-44); MONOCYTES 8 % (0-5); NEUTROPHILS 58 % (28-66); PLATELET ESTIMATE NORMAL (NORMAL)
[2021-06-17 13:15] LABS: VENOUS BASE EXCESS 6.2 (-2.0-2.0); VENOUS HCO3 33.1 MEQ/L (23.0-27.0); VENOUS O2 SATURATION 97.3 % (60.0-80.0); VENOUS PARTIAL PRESSURE CO2 61.1 mmHg (38.0-50.0); VENOUS PARTIAL PRESSURE O2 101.1 mmHg (30.0-50.0); VENOUS PH 7.351 UNITS (7.330-7.430); VENOUS STANDARD HCO3 30.1 MEQ/L; VENOUS TOTAL CO2 34.9 MEQ/L (24.0-28.0)
[2021-06-17] MEDS ORDERED: ONDANSETRON 4MG/2ML VIAL IV PRN (14:25)
[2021-06-17] MEDS ORDERED: FLEET ENEMA PR PRN (14:25)
[2021-06-17] MEDS ORDERED: DARBEPOETIN 200MCG/0.4ML *DIALYSIS* SYRINGE (J0882 PER 1MCG) IV SCH (15:40)
[2021-06-17] MEDS ORDERED: PIPERACILLIN/TAZOBACTAM SOD 4.5 GM in D5W MINI-BAG PLUS 50 ML IV SCH (17:00)
[2021-06-17] MEDS: FAMOTIDINE 20 MG TAB PO SCH (21:33)
[2021-06-18] MEDS: POLYVINYL ALCOHOL OPHTH SOLN 15 ML(LIQUITEARS) OU SCH ×2 (09:00→21:03)
[2021-06-18] MEDS: OXcarbazepine 300MG 5ML SUSP ORAL SYRINGE *DRAW UP EXACT DOSE NG SCH ×2 (09:22→21:00)
[2021-06-18] MEDS: NYSTATIN 100,000 UNITS/GM TOPICAL PWD 15 GM TOP SCH (09:23)
[2021-06-18] MEDS: VANICREAM MOISTURIZING SKIN CREAM 113GM TUBE TOP SCH ×2 (09:23→21:03)
[2021-06-18] MEDS: MORPHINE 4 MG/ML 1ML VIAL/SYRINGE (J2270) IV PRN (09:28)
[2021-06-18] MEDS: LORazepam 2 MG/ML VIAL IV PRN (12:38)
[2021-06-18] MEDS ORDERED: SCOPOLAMINE 1MG TRANSDERMAL PATCH TOP PRN (17:05)
[2021-06-18] MEDS ORDERED: ATROPINE SULFATE 1% OP SOLN 2 ML BTL SL PRN (17:05)
[2021-06-18] MEDS: FAMOTIDINE 20 MG TAB PO SCH (21:00)
[2021-06-19] MEDS: OXcarbazepine 300MG 5ML SUSP ORAL SYRINGE *DRAW UP EXACT DOSE NG SCH ×2 (09:18→20:52)
[2021-06-19] MEDS: POLYVINYL ALCOHOL OPHTH SOLN 15 ML(LIQUITEARS) OU SCH ×2 (09:18→20:52)
[2021-06-19] MEDS: VANICREAM MOISTURIZING SKIN CREAM 113GM TUBE TOP SCH ×2 (09:18→20:52)
[2021-06-19] MEDS: NYSTATIN 100,000 UNITS/GM TOPICAL PWD 15 GM TOP SCH (09:18)
[2021-06-19] MEDS: FAMOTIDINE 20 MG TAB PO SCH (20:51)
[2021-06-20] MEDS ORDERED: SODIUM CHLORIDE 0.9% INJ 10 ML SYR IV PRN
[2021-06-20] MEDS: LORazepam 2 MG/ML VIAL IV PRN ×2 (00:06→08:17)
[2021-06-20] MEDS: SODIUM CHLORIDE 0.9% INJ 10 ML SYR IV SCH ×2 (00:07→21:53)
[2021-06-20] MEDS: MORPHINE 4 MG/ML 1ML VIAL/SYRINGE (J2270) IV PRN ×2 (06:18→21:52)
[2021-06-20] MEDS: VANICREAM MOISTURIZING SKIN CREAM 113GM TUBE TOP SCH ×2 (08:16→21:45)
[2021-06-20] MEDS: NYSTATIN 100,000 UNITS/GM TOPICAL PWD 15 GM TOP SCH (08:16)
[2021-06-20] MEDS: POLYVINYL ALCOHOL OPHTH SOLN 15 ML(LIQUITEARS) OU SCH ×2 (08:17→21:46)
[2021-06-20] MEDS: OXcarbazepine 300MG 5ML SUSP ORAL SYRINGE *DRAW UP EXACT DOSE NG SCH ×2 (08:17→21:52)
[2021-06-20] MEDS: FAMOTIDINE 20 MG TAB PO SCH (21:53)
[2021-06-21] MEDS: MORPHINE 4 MG/ML 1ML VIAL/SYRINGE (J2270) IV PRN ×3 (01:51→11:12)
[2021-06-21] MEDS: OXcarbazepine 300MG 5ML SUSP ORAL SYRINGE *DRAW UP EXACT DOSE NG SCH (07:57)
[2021-06-21] MEDS: NYSTATIN 100,000 UNITS/GM TOPICAL PWD 15 GM TOP SCH (07:58)
[2021-06-21] MEDS: VANICREAM MOISTURIZING SKIN CREAM 113GM TUBE TOP SCH (07:58)
[2021-06-21] MEDS: POLYVINYL ALCOHOL OPHTH SOLN 15 ML(LIQUITEARS) OU SCH (07:58)
[2021-06-21] MEDS ORDERED: ATRO1OPD SL (11:58)
[2021-06-21] MEDS ORDERED: MORP1SOL5 PO (11:58)
[2021-06-21] MEDS ORDERED: TRAN1DIS4 TOP (11:58)
[2021-06-21] MEDS ORDERED: ATIV1TAB10 PO (11:58)
== END 2021-06-21 12:50 | DRG 871 ==
LOC: M ED 11:46 → EDBD 11:46 → M ED INP 11:47 → ENRESERV 16:05 → M ICU 21:28 → OBSVTOIN 06-13 10:11 → M MS5PR 06-17 16:20
PROVIDERS: ADMIT Internal Medicine; ATTEND Internal Medicine
PROC: 05HN33Z Insertion of Infusion Device into Left Internal Jugular Vein, Percutaneous Approach (ICD-10-PCS; 2021-06-12)
PROC: 5A1945Z Respiratory Ventilation, 24-96 Consecutive Hours (ICD-10-PCS; principal; 2021-06-13)
DX: A41.9 Sepsis, unspecified organism (principal); J69.0 Pneumonitis due to inhalation of food and vomit; J96.21 Acute and chronic respiratory failure with hypoxia; N18.6 End stage renal disease; J96.22 Acute and chronic respiratory failure with hypercapnia; G93.41 Metabolic encephalopathy; R65.21 Severe sepsis with septic shock; I50.23 Acute on chronic systolic (congestive) heart failure; I13.2 Hypertensive heart and chronic kidney disease with heart failure and with stage 5 chronic kidney disease, or end stage renal disease; I50.22 Chronic systolic (congestive) heart failure; E87.2 Acidosis; I48.20 Chronic atrial fibrillation, unspecified; E66.2 Morbid (severe) obesity with alveolar hypoventilation; Z68.42 Body mass index [BMI] 45.0-49.9, adult; E11.22 Type 2 diabetes mellitus with diabetic chronic kidney disease; K21.9 Gastro-esophageal reflux disease without esophagitis; E03.9 Hypothyroidism, unspecified; J44.9 Chronic obstructive pulmonary disease, unspecified; Z99.2 Dependence on renal dialysis; F25.9 Schizoaffective disorder, unspecified; E78.5 Hyperlipidemia, unspecified; F32.A Depression, unspecified; I27.20 Pulmonary hypertension, unspecified; Z74.01 Bed confinement status; D63.1 Anemia in chronic kidney disease; Z79.01 Long term (current) use of anticoagulants; B96.4 Proteus (mirabilis) (morganii) as the cause of diseases classified elsewhere; F41.9 Anxiety disorder, unspecified; Z51.5 Encounter for palliative care; Z79.82 Long term (current) use of aspirin; Z79.4 Long term (current) use of insulin; Z79.899 Other long term (current) drug therapy